=== PATIENT | female | born 1980 | race Caucasian/White ===

== ENCOUNTER 2022-10-02 14:09 | Emergency (ER) | payer MEDICARE, OTHER, SELFPAY ==
[2022-10-02 14:18] VITALS: BP 138/76; PULSE 78; RESP 20; TEMP 36.6; O2SAT 97; BMI 41.3
[2022-10-02] MEDS: OXYCODONE 5 MG TABLET 10 MG PO (14:52)
[2022-10-02] MEDS: predniSONE 20 MG TABLET 40 MG PO (14:53)
[2022-10-02] MEDS: CYCLOBENZAPRINE HCL 10 MG TABLET 5 MG PO (14:54)
[2022-10-02 15:11] VITALS: BP 138/76; PULSE 81; O2SAT 96
--- NOTE | 2022-10-02 15:47 | ED_ITS ---
HPI - General Adult General Chief complaint: Extremity Pain/Injury, Lower Stated complaint: Pain Time Seen by Provider: 10/02/22 14:14 Source: patient Limitations: no limitations History of Present Illness HPI narrative: 42-year-old female presents to the emergency department with increased hip pain. This has been an ongoing soccer for her for the last few weeks and she has been evaluated by her primary care provider, had x-rays and has now seen orthopedics in consultation. Thankfully, she actually has a MRI and imaging guided steroid injection planned in 2 days for suspected labral tear of the hip. There has been no new trauma nor injury since those evaluations. She was started on a Medrol Dosepak a few days ago and was initially having some improvement in her symptoms, as the dose has taper down, her pain increased significantly today and she is unsure why. She had stopped taking steady doses of Tylenol and ibuprofen in the last couple of days as well. This morning, she has been unable to get her pain back under control by using Tylenol 1000 mg approximately 6 hours prior to arrival, tramadol at 8:00 a.m. and ibuprofen 800 mg at about 4 hours prior to arrival. She had previously been prescribed Vicodin which she tells me was helping but she had told the orthopedic doctor that it was not helping. He prescribed her some tramadol which I would prefer she not take due to the multiple psychiatric medications she is taking which all have significant serotonin interaction. She was also prescribed methocarbamol by her primary care provider and has not taken that in the last couple of days. No fever. Pain is in the anterior in her hip/groin area. No urinary, gynecological or GI changes. Pain is worse with movement. Pain does not radiate. Sharp with movement, achy at rest. Only left hip is affected, no knee or opposite side pain. Past medical history is mostly notable for multiple psychiatric medications with a history of depression and anxiety. Her medications are reviewed and now accurate per EMR. Socially, nonsmoker, denies any illicit drug use. ROS is notable for the musculoskeletal symptoms as above only, denies any other neurological, musculoskeletal, generalized, GI, gynecological or urinary changes. Related Data Home Medications Medication Instructions Recorded Confirmed aripiprazole 10 mg tablet 10 mg PO QDAY 09/30/22 09/30/22 bupropion HCl 300 mg 24 hr tablet, 300 mg PO QAM 09/30/22 09/30/22 extended release buspirone 10 mg tablet 10 mg PO TID 09/30/22 09/30/22 cholecalciferol (vitamin D3) 1,250 1,250 mcg PO QWEEK 09/30/22 09/30/22 mcg (50,000 unit) oral wafer citalopram 10 mg tablet 10 mg PO QDAY 09/30/22 09/30/22 ferrous sulfate 325 mg (65 mg 325 mg PO QDAY 09/30/22 09/30/22 iron) tablet gabapentin 300 mg capsule 300 mg PO QDAY 09/30/22 09/30/22 hydrocodone 7.5 mg-acetaminophen 1 tab PO BID PRN 09/30/22 09/30/22 325 mg tablet hydroxyzine HCl 25 mg tablet 25 mg PO QHS 09/30/22 09/30/22 lamotrigine 25 mg tablet 50 mg PO ONCE 09/30/22 09/30/22 mirtazapine 7.5 mg tablet 7.5 mg PO QDAY 09/30/22 09/30/22 naltrexone 50 mg tablet 50 mg PO QDAY 09/30/22 09/30/22 naproxen 500 mg tablet,delayed 500 mg PO BID 09/30/22 09/30/22 release (EC-Naproxen) omeprazole 20 mg tablet,delayed 20 mg PO QDAY 09/30/22 09/30/22 release quetiapine 25 mg tablet 25 mg PO QDAY 09/30/22 09/30/22 sennosides 8.6 mg-docusate sodium 1 tab-cap PO QHS 09/30/22 09/30/22 50 mg tablet (Senexon-S) valacyclovir 500 mg tablet 500 mg PO QDAY 09/30/22 09/30/22 Allergies Allergy/AdvReac Type Severity Reaction Status Date / Time Penicillins Allergy Unknown Rash Verified 09/30/22 10:30 keflex Allergy Unknown Rash Uncoded 09/30/22 10:30 [facility] Medical History Back problem ?M53.9 - Dorsopathy, unspecified (ICD-10) Anxiety ?F41.9 - Anxiety disorder, unspecified (ICD-10) Depression ?F32.A - Depression, unspecified (ICD-10) Asthma ?J45.909 - Unspecified asthma, uncomplicated (ICD-10) Surgical History Hx of hammer toe correction ?Z98.890 - Other specified postprocedural states (ICD-10) ?Z87.39 - Personal history of other diseases of the musculoskeletal system and connective tissue (ICD-10) Family History Father Leukemia Social History Smoking Status: Never smoker Do you use any of these nicotine containing products: None Second hand tobacco smoke exposure: No How often do you have a drink containing alcohol: never How often do you have six or more drinks on one occasion: Never AUDIT-C Alcohol total score: 0 Non-prescribed substance use: denies use service: No Exam Const: Vital Signs, click to edit/add: Vital Signs - 24 hr 10/02/22 14:18 10/02/22 15:11 Temperature 97.8 F Pulse Rate [Pulse Oximeter] 78 81 Respiratory Rate 20 Blood Pressure [Le ft Upper Arm] 138/76 138/76 Pulse Oximetry 97 96 Oxygen Delivery Me thod Room Air Room Air Documenting provider has reviewed patient's vital signs: yes Other: Mild distress but well nourished, well hydrated. HENMT: Common normals: normocephalic and head/scalp atraumatic Head and scalp: normocephalic and atraumatic Mouth: oral and palatal mucosa normal Throat: posterior oropharynx normal Eye: General eye: normal appearance of both eyes Other: Normal gaze and visual tracking Resp: Common normals: normal respiratory effort, no use of accessory muscles and clear to auscultation bilaterally Effort & inspection: able to speak in complete sentences Auscultation: clear to auscultation bilaterally Cardio: Common normals: regular rate, regular rhythm, S1 normal heart sound, S2 normal heart sound and no murmurs Rate: regular rate Rhythm: regular rhythm Heart sounds: S1 normal and S2 normal GI: Common normals: Normal to inspection, nondistended, normoactive bowel sounds present and soft to palpation Palpation: soft Extremity: Other: Right hip with a little limited internal rotation but nontender. Normal flexion and extension. The left hip is exquisitely tender to internal rotation but does flex and extend. She guards quite a bit on exam which makes this difficult. There is no obvious bruising or deformity to the hip. There is no tenderness to the outside hip. The knee has no effusion, the knee moves normally. The foot and ankle are normal in appearance. She has good pedal pulses. Psych: Common normals: speech normal Appearance: grossly normal Speech: normal speech Insight: fair Judgement: fair Skin: Common normals: no rashes or lesions noted General skin exam: no rashes or lesions noted Course Vital Signs Vital signs: Initial Vital Signs Temperature 97.8 F 10/02/22 14:18 Temperature Source Temporal Artery Scan 10/02/22 14:18 Pulse Rate 78 10/02/22 14:18 Pulse Rhythm Regular 10/02/22 14:18 Respiratory Rate 20 10/02/22 14:18 Blood Pressure 138/76 10/02/22 14:18 Blood Pressure Mean 96 10/02/22 14:18 Blood Pressure Position Supine 10/02/22 14:18 Pulse Oximetry 97 10/02/22 14:18 Oxygen Delivery Method Room Air 10/02/22 14:18 Vital Signs Temperature 97.8 F 10/02/22 14:18 Pulse Rate 78 10/02/22 14:18 Respiratory Rate 20 10/02/22 14:18 Blood Pressure 138/76 10/02/22 14:18 Pulse Oximetry 97 10/02/22 14:18 Oxygen Delivery Method Room Air 10/02/22 14:18 Temperature 97.8 F 10/02/22 14:18 Pulse Rate 81 10/02/22 15:11 Respiratory Rate 20 10/02/22 14:18 Blood Pressure 138/76 10/02/22 15:11 Pulse Oximetry 96 10/02/22 15:11 Oxygen Delivery Method Room Air 10/02/22 15:11 Medical Decision Making MDM Narrative Medical decision making narrative: No new injury, extensive previous workup. I do not improve up eating any of the studies will be helpful. I suspect that her pain has worsened since her pred nisone decreased and she has not been as diligent with her baseline [id number] pain medications. Counseled that I would like for her to stop the tramadol. I do not think this is a good choice for her especially with the number of serotonin agents that she already takes. Will give 10 mg of oxycodone, 5 mg of Flexeril and 40 mg of prednisone p.o. and re-evaluate. Update: Re-evaluated 30 minutes after medications given, she is starting to have improvement. It still hurts to move but she can internally rotate and flex slightly. Discussed home plan of care. Plan is the patient will continue taking her methocarbamol. Stressed the importance of Tylenol and NSAIDs as primary pain control. She is given a limited supply of oxycodone to use for severe pain. We will also restart predni sone 40 mg once daily for the next 5 days. She will keep her appointment with the specialist in 2 days will contact her primary care provider if she needs additional oxycodone. Twelve tablets dispensed. She was instructed to hold her naltrexone for the next couple of days to allow the narcotic to work better. Discharge Plan Discharge Clinical Impression: Left hip pain Patient Disposition: Home w/ Parent or Adult Condition: Improved Instructions: Hip Pain (ED) Additional Instructions: I am glad that the oxycodone seems to be helping somewhat. I suspect your pain is worse today because of the decreasing dose of the steroid. I have given you today's dose of prednisone. I have given you a prescription for 5 additional days of this. You can pick this up at the vending machine in the [place]. I want you to keep aggressively using Tylenol 1000 mg 4 times daily as well as either continuing with the prescription naproxen or taking ibuprofen 600 mg 4 times daily. Do not skip the Tylenol. This is the main foundation of your pain control. If the pain is still bothersome, add on the methocarbamol that you have already been prescribed. If the pain is still very bothersome, you may use the oxycodone. I do not like you taking the tramadol because you are on too many medications that already affect serotonin because of your mood medications. Please discontinue the tramadol. Try to use the oxycodone sparingly and remember to use laxatives to help prevent constipation. I am very thankful that you have the upcoming appointment for the injection in 2 days. Please keep this appointment. Follow-up with your primary care provider before you run out of oxycodone if you will need additional refills. Stop taking your naltrexone for the next few days while you are taking the oxycodone. It can make the oxycodone less effective. Activity Level: Activity as Tolerated Discharge Diet: Regular Prescriptions: No Action lamotrigine 25 mg tablet 50 mg PO ONCE citalopram 10 mg tablet 10 mg PO QDAY bupropion HCl 300 mg tablet extended release 24 hr 300 mg PO QAM ferrous sulfate 325 mg (65 mg iron) tablet 325 mg PO QDAY valacyclovir 500 mg tablet 500 mg PO QDAY naltrexone 50 mg tablet 50 mg PO QDAY cholecalciferol (vitamin D3) 1,250 mcg (50,000 unit) wafer 1,250 mcg PO QWEEK omeprazole 20 mg tablet,delayed release (DR/EC) 20 mg PO QDAY aripiprazole 10 mg tablet 10 mg PO QDAY quetiapine 25 mg tablet 25 mg PO QDAY mirtazapine 7.5 mg tablet 7.5 mg PO QDAY sennosides-docusate sodium [Senexon-S] 8.6-50 mg tablet 1 tab-cap PO QHS naproxen [EC-Naproxen] 500 mg tablet,delayed release (DR/EC) 500 mg PO BID hydroxyzine HCl 25 mg tablet 25 mg PO QHS buspirone 10 mg tablet 10 mg PO TID gabapentin 300 mg capsule 300 mg PO QDAY hydrocodone-acetaminophen 7.5-325 mg tablet 1 tab PO BID PRN Follow Up/Referrals: Kika Johnston PA-C [Primary Care Provider] - Stand Alone Forms: [facility] Info Instructions
[2022-10-02] MEDS: KETOROLAC 10 MG TABLET PO (16:15)
== END 2022-10-02 16:23 | disposition home or self-care (01) ==
PROVIDERS: Emergency Provider Family Medicine; PCP Physician Assistant Medical
DX: M25.552 Pain in left hip (principal)
CPT/HCPCS: 99283; 99284; A9270; J7512

== ENCOUNTER 2022-10-11 10:21 | Inpatient (IN) | payer MEDICARE, OTHER, SELFPAY ==
[2022-10-11 11:32] VITALS: BP 117/77; PULSE 86; RESP 14; TEMP 36.6; O2SAT 92
[2022-10-11] MEDS: ACETAMINOPHEN 500 MG TABLET 1000 MG PO ×2 (12:40→19:43)
--- NOTE | 2022-10-11 12:55 | LTC.ADM ---
LTC Admission Note: o Admit from: [facility] Med/Surg unit o Mode of transport: Transported by wheelchair from med/surg unit o Accompanied by: Med/surg staff o Transferred via: FWW o Admitting dx: L hip fracture with surgical repair o Mentation: Resident alert & oriented to correct person, place, time and situation o Vital Signs: B/P 117/77, P 86, R 14, T 97.9, O2 sat 92% o Lung sounds: Clear to all lobes bilaterally o Overall condition: Resident transferring with stand by assist. Med/surg unit reports resident is ambulating. o Pain: Resident reported pain to be 3/10 upon admit though later stated pain was 4-5/10. She has been given PRN Tylenol 975 mg due to having to use stock supply and ice has been provided. Rest encouraged and repositioning performed. o Mood/Behavior: Resident has been pleasant since admit. She requested to eat lunch in dining room. o Wound care: Med/surg nurse reported staff removal of surgical dressing to L hip before admit to [facility]. o Assistance level with ADL?s: Resident eating independently after setup and toileting and transferring with stand by assist. o Mobility: Stand by assist using FWW o Eating: Independent after setup
--- NOTE | 2022-10-11 13:00 | PC.NURSE ---
MEDICARE ADMIT: Resident was admitted from [facility] today, s/p L hip fracture with surgical repair. Qualifying hospital stay was 10/05/22-10/11/22. Today will be the first day of coverage. Insurance has pre-authorized 3 days of coverage. Resident is aware and was notified of coverage due to skilled therapy. Nursing will receive pain medication management and monitoring by nursing. Will receive PT/OT 5x per week until resident meets goals.
[2022-10-11] MEDS: OXYCODONE 5 MG TABLET PO ×3 (13:50→23:57)
--- NOTE | 2022-10-11 14:35 | P.ORPN_ITS ---
Subjective Subjective Time Seen by Provider: 08:00 Date Seen: 10/11/22 Principal diagnosis: Status post left hip replacement for femoral neck fracture Interval history: [facility]. She states she has been ambulating in the hallways into the physical therapy department. She has done stairs with her therapist. This went well. Ortho Exam Narrative Exam Narrative: Alert and oriented x3. Patient is in no acute distress. Converses without labored breathing. Hearing is grossly intact. Ambulates with a walker. Examination of left lower extremity shows the dressing is intact. Soft tissue edema about the left thigh. Bilateral calves are soft and nontender. CMS is intact left lower extremity. Const Vital Signs, click to edit/add: Vital Signs - 24 hr 10/11/22 11:32 Temperature 97.9 F Pulse Rate [Right Radial] 86 Respiratory Rate 14 Blood Pressure [Right Arm] 117/77 Pulse Oximetry 92 Oxygen Delivery Method Room Air Documenting provider has reviewed patient's vital signs: yes Assessment and Plan Assessment and plan (1) Status post total hip replacement, left: Problem details: POD 4, hospital day 6 for operative treatment femoral neck fracture (DOS: 10/06/2022) Status: Acute Assessment and Plan: Plan for discharge is today to [facility] if she meets discharge criteria. DVT prophylaxis includes Xarelto 10 mg daily for total of 5 days, then aspirin 81 mg twice daily for 30 days, Butch stockings x1 month may remove for 1 hr per day, frequent ambulation Remove dressing 2 weeks postsurgery. Observe wound and phone Orthopedics with any questions or concerns Use Ice on operative hip unrestricted. Return to clinic in [address] Brewer Minimize narcotic use. Wean off and discontinue soon as possible. Activities as tolerated. No strenuous activity. PT and OT at [facility]
--- NOTE | 2022-10-11 14:40 | PC.NURSE ---
Order: Received t.o. from Arlin Katz keep (L) hip dressing for 2 weeks, give Aspirin x 30 days, SCD if not moving/ambulating. OT- Fina here , consulted regarding resident mobility and need for SCD. Resident has been ambulating and moving therefore not needing it.
--- NOTE | 2022-10-11 14:57 | PC.NURSE ---
Resident was admitted today from [facility] M/S s/p hip fracture and surgical repair. Was hospitalized 10/05/22-10/11/22. Prior authorization obtained from her Medicare Advantage plan. Resident will receive PT/OT, pain management and surgical site care. Resident signed consents for her psychotropic medication use.
[2022-10-11 15:04] LABS: SARS PCR* Negative SARS-CoV-2 (Negative)
[2022-10-11] MEDS: methocarbamoL 500 MG TABLET PO (21:05)
[2022-10-11] MEDS: GABAPENTIN 300 MG CAPSULE PO (21:06)
[2022-10-11] MEDS: SENNOSIDES/DOCUSATE TABLET 2 TAB PO (21:07)
[2022-10-11] MEDS: BUSPIRONE 10 MG TABLET PO (21:07)
[2022-10-11] MEDS: KETOROLAC 10 MG TABLET PO (21:08)
[2022-10-11] MEDS: MIRTAZAPINE 15 MG TABLET 7.5 MG PO (21:09)
[2022-10-11] MEDS: QUETIAPINE 25 MG TABLET PO (21:10)
--- NOTE | 2022-10-11 21:35 | PC.NURSE ---
Skin assessment: Left Hip sutures covered w/hospital bandage. No swelling, no drainage, no S&S infection noted.
--- NOTE | 2022-10-11 21:43 | PC.NURSE ---
New Admission Skin Assessment: No concerns/bumps/bruises. L. Hip surgical wound covered w/hospital bandage. No drainage, no odor, no edema, no S&S of infection noted
--- NOTE | 2022-10-11 21:45 | PC.NURSE ---
New Admission Covid test result-negative
[2022-10-12] MEDS: ACETAMINOPHEN 500 MG TABLET 1000 MG PO ×3 (06:44→18:59)
[2022-10-12] MEDS: OXYCODONE 5 MG TABLET PO ×3 (06:48→16:02)
[2022-10-12] MEDS: ARIPiprazole 10 MG TABLET PO (08:08)
[2022-10-12] MEDS: ASPIRIN 81 MG TABLET EC PO ×2 (08:08→15:31)
[2022-10-12] MEDS: BUSPIRONE 10 MG TABLET PO ×3 (08:08→19:03)
[2022-10-12] MEDS: KETOROLAC 10 MG TABLET PO ×3 (08:09→19:03)
[2022-10-12] MEDS: FERROUS SULFATE 325 MG TABLET PO (08:09)
[2022-10-12] MEDS: CITALOPRAM HYDROBROMIDE 10 MG TABLET 20 MG PO (08:09)
[2022-10-12] MEDS: methocarbamoL 500 MG TABLET PO ×4 (08:11→19:03)
[2022-10-12] MEDS: lamoTRIgine 25 MG TABLET 50 MG PO (08:11)
[2022-10-12] MEDS: GABAPENTIN 300 MG CAPSULE PO ×4 (08:11→19:03)
[2022-10-12] MEDS: POTASSIUM CHLORIDE 10 MEQ CAPSULE ER 20 MEQ PO (08:12)
[2022-10-12] MEDS: OMEPRAZOLE 20 MG CAPSULE DR PO (08:12)
[2022-10-12] MEDS: VALACYCLOVIR HCL 500 MG TABLET PO (08:12)
[2022-10-12] MEDS: SENNOSIDES/DOCUSATE TABLET 2 TAB PO ×2 (08:12→15:31)
[2022-10-12] MEDS: buPROPion XL 150 MG TABLET 300 MG PO (08:13)
--- NOTE | 2022-10-12 12:10 | PC.SOCIAL ---
Met with resident in room to discuss discharge plans. Resident is doing well with therapy. Informed resident that insurance has only authorized 3 days for rehab at SNF. Informed resident that resident may not meet criteria to have additional days prior auth from insurance due to resident's wonderful progress. Discussed resident's home and if she would have any assistance at home if resident was discharged. Resident states that she has a friend (Sudhakar) that would assist her. Resident states if she was discharged Monday, Sudhakar would assist with transportation back home. Discussed how resident felt about going home and resident stated she is feeling better as she has worked with therapy to ensure she can physically handle taking care of herself. Resident states that therapy has specific areas that they are working on before discharge that are helpful. Asked resident to check in with friend and tentatively have a plan for transportation for Monday discharge. Informed resident if she has any questions that arise for social work that she may reach out to this worker. This worker will follow up with resident on (10/13/22).
--- NOTE | 2022-10-12 13:38 | PC.NURSE ---
Medicare Charting Note: Resident complains pain 2x to L hip and L leg, rated 4.5 -5 /10 pain scale this shift. Administered PRN Tylenol 1000 mg ant Oxycodone at 0640 per resident request and again oxycodone 1103 , applied ice pack to L hip which was effective upon f/u's. CMS intact, able to move L extremity. Resident is independent with with transfers, ambulation, toileting in her room. Dressing intact to L hip fx w/ repair.
[2022-10-12 13:54] VITALS: TEMP 36.9
--- NOTE | 2022-10-12 14:51 | PC.NURSE ---
NOMNC & ABN: NOMNC and ABN provided to resident. Resident was admitted from [facility] w/primary diagnosis of L hip fracture w/repair. Resident on admission had orders for OT/PT. Resident did receive these inpatient services. It was determined by the [facility] that therapies will end 10/14/22. This nurse explained to resident that the residents last day of Medicare coverage will end 10/14/22. Starting on 10/15/22 residents coverage at this facility will be private pay. Resident wad instructed about the appeal process--due to having medicare health plan resident is to contact plan provider directly at [phone]. Denial letter filed, given, and signed by resident. Copy of all paperwork was given to resident. Based on last day of coverage, resident will have used 3 day of medicare coverage. Original forms were filed in the residents chart.
[2022-10-12] MEDS: MIRTAZAPINE 15 MG TABLET 7.5 MG PO (19:04)
[2022-10-12] MEDS: QUETIAPINE 25 MG TABLET PO (19:04)
[2022-10-13] MEDS: OXYCODONE 5 MG TABLET PO ×3 (04:05→15:00)
--- NOTE | 2022-10-13 05:27 | PC.NURSE ---
PAIN Resident requested Oxycodone 10 mg for pain on lower back and left hip ; Thirty minutes after, she did not get much relief , she said , ice pack was offered.
--- NOTE | 2022-10-13 06:56 | PC.NURSE ---
WEEKLY CHARTING WEEK 4 COMMUNICATION, HEARING/VISION, COGNITION Vital signs are within normal range. Temporary and comprehensive care plan : new admission, no changes made yet. Resident got no hearing or vision issues. Resident has history of Depression and personality disorder, no behavior exhibited overnight. She is here for short term cares, will keep comfortable and safe.
[2022-10-13] MEDS: ARIPiprazole 10 MG TABLET PO (07:12)
[2022-10-13] MEDS: CITALOPRAM HYDROBROMIDE 10 MG TABLET 20 MG PO (07:12)
[2022-10-13] MEDS: BUSPIRONE 10 MG TABLET PO ×3 (07:12→21:14)
[2022-10-13] MEDS: ASPIRIN 81 MG TABLET EC PO ×2 (07:12→15:05)
[2022-10-13] MEDS: FERROUS SULFATE 325 MG TABLET PO (07:12)
[2022-10-13] MEDS: OMEPRAZOLE 20 MG CAPSULE DR PO (07:13)
[2022-10-13] MEDS: KETOROLAC 10 MG TABLET PO ×3 (07:13→21:14)
[2022-10-13] MEDS: lamoTRIgine 25 MG TABLET 50 MG PO (07:13)
[2022-10-13] MEDS: methocarbamoL 500 MG TABLET PO ×4 (07:13→21:15)
[2022-10-13] MEDS: GABAPENTIN 300 MG CAPSULE PO ×4 (07:13→21:15)
[2022-10-13] MEDS: POTASSIUM CHLORIDE 10 MEQ CAPSULE ER 20 MEQ PO (07:14)
[2022-10-13] MEDS: VALACYCLOVIR HCL 500 MG TABLET PO (07:14)
[2022-10-13] MEDS: SENNOSIDES/DOCUSATE TABLET 2 TAB PO ×2 (07:14→15:05)
[2022-10-13] MEDS: ACETAMINOPHEN 500 MG TABLET 1000 MG PO ×2 (07:18→18:38)
[2022-10-13] MEDS: buPROPion XL 150 MG TABLET 300 MG PO (08:06)
--- NOTE | 2022-10-13 11:39 | PC.NURSE ---
Discharge Order: Ann TOM here, order done. Okay to DC to home with remaining medication and controlled substance supply. Change Oxycodone to 5 mg Q4H PRN.
--- NOTE | 2022-10-13 12:56 | PC.NURSE ---
Medicare Charting Note:VSS: Resident complains pain twice this shift to L hip and L leg, rated 4.5 -5 /10 pain scale . Administered PRN Tylenol 1000 mg at 0720 and Oxycodone at 1011 , applied ice pack to L hip and encouraged rest and repostiong which was effective upon f/u's. Dressing intact to L hip fx w/repair. CMS intact. Resident is independent with with transfers, ambulation, toileting.
--- NOTE | 2022-10-13 13:23 | PC.NURSE ---
Admit Covid day 3 swab test done and sent to lab. Resident will be notified if result is positive.
[2022-10-13 14:03] LABS: SARS PCR* Negative SARS-CoV-2 (Negative)
[2022-10-13 18:38] VITALS: TEMP 37.1
[2022-10-13 21:13] VITALS: TEMP 37.1
[2022-10-13] MEDS: QUETIAPINE 25 MG TABLET PO (21:16)
[2022-10-13] MEDS: MIRTAZAPINE 15 MG TABLET 7.5 MG PO (21:16)
[2022-10-13 21:44] VITALS: RESP 14; TEMP 37.1
[2022-10-14 06:58] VITALS: BP 127/80; PULSE 85; RESP 18; TEMP 36.6; O2SAT 95
[2022-10-14] MEDS: OXYCODONE 5 MG TABLET PO (06:59)
[2022-10-14] MEDS: ASPIRIN 81 MG TABLET EC PO (08:09)
[2022-10-14] MEDS: BUSPIRONE 10 MG TABLET PO (08:09)
[2022-10-14] MEDS: ARIPiprazole 10 MG TABLET PO (08:09)
[2022-10-14] MEDS: CITALOPRAM HYDROBROMIDE 10 MG TABLET 20 MG PO (08:09)
[2022-10-14] MEDS: GABAPENTIN 300 MG CAPSULE PO (08:10)
[2022-10-14] MEDS: methocarbamoL 500 MG TABLET PO (08:10)
[2022-10-14] MEDS: lamoTRIgine 25 MG TABLET 50 MG PO (08:10)
[2022-10-14] MEDS: FERROUS SULFATE 325 MG TABLET PO (08:10)
[2022-10-14] MEDS: SENNOSIDES/DOCUSATE TABLET 2 TAB PO (08:11)
[2022-10-14] MEDS: POTASSIUM CHLORIDE 10 MEQ CAPSULE ER 20 MEQ PO (08:11)
[2022-10-14] MEDS: OMEPRAZOLE 20 MG CAPSULE DR PO (08:11)
[2022-10-14] MEDS: VALACYCLOVIR HCL 500 MG TABLET PO (08:11)
[2022-10-14] MEDS: buPROPion XL 150 MG TABLET 300 MG PO (08:12)
--- NOTE | 2022-10-14 08:21 | REH.PT ---
Pt provided 2ww from donation closet that was fit for her.
--- NOTE | 2022-10-14 09:52 | PC.NURSE ---
Discharge: All discharge instructions reviewed with resident and given. All appropriate medications sent.Discharge in wheelchair with a friend.
[2022-10-14 10:00] VITALS: BMI 41.3
== END 2022-10-14 10:00 | disposition home or self-care (01) | DRG 566 ==
PROVIDERS: Family Medicine; Admitting Provider Family Medicine; Family Provider Nurse Practitioner Gerontology; PCP Physician Assistant Medical; Visit Provider Nurse Practitioner Gerontology
DX: Z96.642 Presence of left artificial hip joint (principal); M25.552 Pain in left hip
CPT/HCPCS: 87635; 97116; 97162; 97166; 97535

== ENCOUNTER 2022-11-29 14:30 | Outpatient (RCR) | payer MEDICARE, OTHER, SELFPAY ==
--- NOTE | 2022-10-18 11:39 | PT.OPEX ---
[facility] [place] Out[facility] Eval PT [facility] Outpatient Eval Start: 10/18/22 07:56 Freq: Status: Active Protocol: Document 10/18/22 07:57 ENM (Rec: 10/18/22 11:20 ENM [id number]) E-signed By Margret Dinero, DPT Physical Therapy Outpatient Evaluation Insurance Information Recert Due Date 01/10/23 Insurance Name Medicare B,[employer] Insurance Information/Comments medicare advantage Medical Diagnosis s/p total hip replacement, left femoral neck fracture Treating Diagnosis left hip pain, decreased hip ROM, decreased hip strength, impaired gait Referring MD Brewer Subjective Subjective Patient presents to PT for evaluation after left total hip replacement for femoral neck fracture (DOS 10/06/22). It started hurting 2 weeks before the and the month before she would feel a groin and spasm discomfort. Pains steadily got worse and she was using crutches. She was seen in the orthopedic clinic and then subsequently had an intra -articular corticosteroid injection with little relief of pain. Was seen in the ED again then had an MRI which showed a left femoral neck fracture with about 90? of angulation. Stayed in the [facility] for 3 days then went home. She came home last Monday and since then pains have improved , managing them with tylenol and ibuprofen. Is using the 2WW for stability to help offload the hip but will go without it at times within her home. Has been doing exercises 2-3 times a day. She has been walking constantly in her apartment. Sitting or laying on her bottom can still be irritating. Cooking and washing her clothes is limited . She cannot go up the stairs and carry her groceries at this moment. Her main goal is to be able to walk outside like she used to. PMHx: depression, arthritis, Pain Comments at its best: 05/31 at its worse: 11/28 easing: ice pack, ibuprofen, tylenol, hemp gummies aggravating: sitting, laying on her bottom, walking around too much Current Work Status [employer] Dis[employer] Objective Other/Pertinent Objective ROM: hip flexion able to comfortably sit in chair and bend forward to tie shoe supine passive hip flexion 85 degs, guarding initially that improved strength: 5x STS 15.42s with use of arms , fatigued after performing hip flexors L able to lift 1.5 inch R full range 4-/5 knee extensors L able to extend against gravity without resistance with shakiness noted R 4+/5 good quad contraction with QS, strong glute contraction with GS gait/ambulation: Patient ambulating with use of 2WW, mild-mod offloading using UE, decreased stance time on LLE, decreased L hip extension Other: patient having to physically assist bringing LLE in/out of bed Patient very anxious/fearful of mobility initially that improved throughout evaluation Functional Test Performed & Score LEFS: 36/80 Assessment Assessment/Impression Patient is a 42 year old female presenting after left total hip replacement due to femoral neck fracture (DOS ). Pains have steadily been improving since she was discharged from [facility] on Monday . Their primary complaint is of not being able to perform the stairs, carry her groceries or walk longer distances. Upon assessment patient displays decreased left hip ROM and strength consistent with s/p L SHRUTHI. Good quad and glute max contraction. Uses 2WW for support with ambulation with decreased stance time of LLE and hip extension noted. Trialed use of SEC which patient was able to implement well, she plans to buy a cane in the next few days. Jennifer would greatly benefit from skilled PT to address impairments stated above in order to perform all functional/recreational mobility and household activities without significant discomfort or difficulty for return to [facility]. Primary Functional Limitations stairs, walking longer distances, carrying groceries, Plan of Care Rehabilitation Potential Good Physical Therapy Goals In 6-8 visits: 1. Patient will be able to lift leg in/out of bed or car without pain or physical assistance to improve ease of supine<>sit transfer 2. Patient will A/D flight of 10 steps reciprocally with symmetric WB for improved navigation of household 3. Patient will ambulate with improved mechanics and no pain without AD for 10 mins demonstrating improvements in community mobility 4. Patient will improve LEFS from 36/80 to 45/80 (MDC 9) to demonstrate improvements in functional ability Coordination/Communication With Referral Source Treatment Plan/Direct Interventions Gait Training,Ice/Cold/ Vasopneumatic,Joint Mobilization,Manual Therapy, Neuromuscular Re-ed,Self-Care/ Home Management,Therapeutic Activities,Therapeutic Exercises Frequency/Duration 1x a week for 6-8 visits, decreasing frequency as needed for 2-3 additional visits Patient Will Be Discharged From Therapy Completion of LTG(s), Independent w/HEP Evaluation Billing Untimed Code Treatment Minutes 32 Complexity Low Certification Information Physician Comment/Change : Physician NPI Number #
== END 2022-11-29 16:40 | disposition home or self-care (01) ==
PROVIDERS: PCP Physician Assistant Medical; Visit Provider Orthopaedic Surgery
DX: M25.552 Pain in left hip (principal); Z96.642 Presence of left artificial hip joint; R26.9 Unspecified abnormalities of gait and mobility; Z74.09 Other reduced mobility; Z51.89 Encounter for other specified aftercare
CPT/HCPCS: 97110; 97161

== ENCOUNTER 2023-01-02 01:48 | Emergency (ER) | payer MEDICARE, OTHER, SELFPAY ==
[2023-01-02 01:55] VITALS: BP 137/116; PULSE 95; RESP 18; TEMP 36.4; O2SAT 96; BMI 39.1
--- NOTE | 2023-01-02 02:06 | CRLHL7_ITS ---
For Patients: As a result of the Cures Act, medical imaging exams and procedure reports are released immediately into your electronic medical record. You may view this report before your referring provider. If you have questions, please contact your health care provider. HISTORY: Left foot pain. TECHNIQUE: Three views of left foot. COMPARISON: No prior. 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 Associated arthrosis of the 2nd MTP joint space. There is also chronic deformity of the heads of the proximal phalanges of the 2nd and 3rd toes. Bipartite medial sesamoid bone is present. Navicular accessory ossification center. There is no acute fracture. IMPRESSION: No acute fracture. Dictated by Alcon Ramirez MD @ 01/02/2023 3:48:23 AM Dictated by: Alcon Ramirez MD @ 01/02/2023 03:48:29 (Electronically Signed)
[2023-01-02] MEDS: diphenhydrAMINE 25 MG CAPSULE 50 MG PO (02:29)
[2023-01-02] MEDS: predniSONE 20 MG TABLET PO (02:29)
--- NOTE | 2023-01-02 02:29 | ED.GENADULT ---
HPI - General Adult General Date Seen: 01/02/23 Chief complaint: Skin/Abscess/Foreign Body Stated complaint: Hives Time Seen by Provider: 01/02/23 02:04 Source: patient and EMS Mode of arrival: EMS Limitations: no limitations History of Present Illness HPI narrative: Patient is a 42-year-old female presents here for evaluation of a rash, and left foot pain. The rash started up today, she was out in the sun she noted hives on her back, they are very itchy. She called 911, and they talked her into coming here, she says she just did wanted some Benadryl. Denies any shortness of breath, or pharyngeal swelling, she does have a history of anxiety and she said she was worried about this. No fevers chills or sweats, denies otherwise feeling bad. Her left foot is been bothering her, the last couple days, no history of trauma, she describes over her medial plantar aspect. Location: left and lower extremity Associated symptoms: denies other symptoms Treatments prior to arrival: none Related Data Home Medications Medication Instructions Recorded Confirmed aripiprazole 10 mg tablet 10 mg PO DAILY 09/30/22 01/02/23 bupropion HCl 300 mg 24 hr tablet, 300 mg PO QAM 09/30/22 01/02/23 extended release buspirone 10 mg tablet 10 mg PO TID 09/30/22 01/02/23 cholecalciferol (vitamin D3) 1,250 1,250 mcg PO QWEEK 09/30/22 01/02/23 mcg (50,000 unit) oral wafer citalopram 10 mg tablet 20 mg PO DAILY 09/30/22 01/02/23 ferrous sulfate 325 mg (65 mg 325 mg PO DAILY 09/30/22 01/02/23 iron) tablet gabapentin 300 mg capsule 300 mg PO QID 09/30/22 01/02/23 lamotrigine 25 mg tablet 50 mg PO DAILY 09/30/22 01/02/23 mirtazapine 7.5 mg tablet 7.5 mg PO HS 09/30/22 01/02/23 naproxen 500 mg tablet,delayed 500 mg PO BID 09/30/22 01/02/23 release (EC-Naproxen) omeprazole 20 mg tablet,delayed 20 mg PO DAILY 09/30/22 01/02/23 release quetiapine 25 mg tablet 25 mg PO HS 09/30/22 01/02/23 sennosides 8.6 mg-docusate sodium 2 tab-cap PO BID 09/30/22 01/02/23 50 mg tablet (Senexon-S) acetaminophen 500 mg tablet 1,000 mg PO Q6H PRN pain 10/06/22 01/02/23 methocarbamol 500 mg tablet 500 mg PO QID 10/06/22 01/02/23 Previous Rx's Medication Instructions Recorded valacyclovir 500 mg tablet 500 mg PO DAILY Antiviral #1 tab 10/13/22 diphenhydramine HCl 25 mg capsule 50 mg (2 x 25 mg) PO TID PRN #30 01/02/23 (Benadryl) caps prednisone 20 mg tablet 20 mg PO DAILY #5 tabs 01/02/23 Allergies Allergy/AdvReac Type Severity Reaction Status Date / Time Penicillins Allergy Unknown Rash Verified 11/14/22 10:54 cephalexin [From Keflex] Allergy Rash Verified 11/14/22 10:54 shellfish derived Allergy Anaphylaxis Verified 11/14/22 10:54 Cephalosporins AdvReac Mild Verified 11/14/22 10:54 Review of Systems Status of ROS: Reports: 10 or more systems reviewed and unremarkable except as noted in History and below [facility] Medical History History of substance abuse ?F19.11 - Other psychoactive substance abuse, in remission (ICD-10) History of alcohol abuse ?F10.11 - Alcohol abuse, in remission (ICD-10) Femoral neck fracture ?S72.009A - Fracture of unspecified part of neck of unspecified femur, initial encounter for closed fracture (ICD-10) Cubital tunnel syndrome, bilateral ?G56.23 - Lesion of ulnar nerve, bilateral upper limbs (ICD-10) Obesity ?E66.9 - Obesity, unspecified (ICD-10) Substance use disorder ?F19.90 - Other psychoactive substance use, unspecified, uncomplicated (ICD-10) Back problem ?M53.9 - Dorsopathy, unspecified (ICD-10) Anxiety ?F41.9 - Anxiety disorder, unspecified (ICD-10) Depression ?F32.A - Depression, unspecified (ICD-10) Asthma ?J45.909 - Unspecified asthma, uncomplicated (ICD-10) Surgical History Status post total hip replacement, 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) ?Z96.642 - Presence of left artificial hip joint (ICD-10) Status post laparoscopic cholecystectomy (09/13/19) ?Z90.49 - Acquired absence of other specified parts of digestive tract (ICD-10) History of varicose vein ligation ?Z98.890 - Other specified postprocedural states (ICD-10) ?Z86.79 - Personal history of other diseases of the circulatory system (ICD-10) Hx of hammer toe correction (10/22/03) ?Z98.890 - Other specified postprocedural states (ICD-10) ?Z87.39 - Personal history of other diseases of the musculoskeletal system and connective tissue (ICD-10) Family History Father Leukemia Social History Narrative: single, 2 kids, nonsmoker, no EtOH Highest level of school completed/degree received: Associate degree: occupational, technical, vocational program Smoking Status: Former smoker (quit 2014) Do you use any of these nicotine containing products: None Second hand tobacco smoke exposure: No How often do you have a drink containing alcohol: never How often do you have six or more drinks on one occasion: Never AUDIT-C Alcohol total score: 0 Non-prescribed substance use: denies use Caffeine: Yes service: No Exam Narrative: Exam Narrative: On examination she is delightful in no apparent distress speaking to me normally, her pupils equal round reactive to light her oropharynx is normal, her tongue is not swollen, neither of her lips. Her neck is supple, good phonation and good speech pattern is noted, chest is good air entry bilaterally with no wheezing crackles noted heart sounds are normal, abdomen is soft she is little bit tender over her left foot, with a little bit of swelling over the medial side. Skin reveals a rash, consistent with urticaria but also may be consistent with polymorphous light eruption. Const: Vital Signs, click to edit/add: Vital Signs - 24 hr 01/02/23 01:55 Temperature 97.5 F L Pulse Rate [Right Pulse Oximeter] 95 Respiratory Rate 18 Blood Pressure [Le ft Upper Arm] 137/116 H Pulse Oximetry 96 Oxygen Delivery Me thod Room Air Documenting provider has reviewed patient's vital signs: yes Course Course Hospital Course: X-ray does not show any acute fracture, some mild arthritis is noted, this may be the cause of her pain. I discussed with her the use of prednisone, she has tolerated this well in the past, and no she has a history of some psychosis, but she tells me this does not all from the prednisone. I think the Benadryl also would be a good choice. We will give her low-dose prednisone 20 mg along with the Benadryl. Avoidance of the son is suggested. She can take some Tylenol for her foot pain Vital Signs Vital signs: Initial Vital Signs Temperature 97.5 F L 01/02/23 01:55 Temperature Source Temporal Artery Scan 01/02/23 01:55 Pulse Rate 95 01/02/23 01:55 Pulse Rhythm Regular 01/02/23 01:55 Respiratory Rate 18 01/02/23 01:55 Blood Pressure 137/116 H 01/02/23 01:55 Blood Pressure Mean 123 H 01/02/23 01:55 Blood Pressure Position Sitting 01/02/23 01:55 Pulse Oximetry 96 01/02/23 01:55 Oxygen Delivery Method Room Air 01/02/23 01:55 Vital Signs Temperature 97.5 F L 01/02/23 01:55 Pulse Rate 95 01/02/23 01:55 Respiratory Rate 18 01/02/23 01:55 Blood Pressure 137/116 H 01/02/23 01:55 Pulse Oximetry 96 01/02/23 01:55 Oxygen Delivery Method Room Air 01/02/23 01:55 Temperature 97.5 F L 01/02/23 01:55 Pulse Rate 95 01/02/23 01:55 Respiratory Rate 18 01/02/23 01:55 Blood Pressure 137/116 H 01/02/23 01:55 Pulse Oximetry 96 01/02/23 01:55 Oxygen Delivery Method Room Air 01/02/23 01:55 Medical Decision Making MDM Narrative Medical decision making narrative: I discussed with her, we will do x-ray of her foot, we will try little bit of a Benadryl, and also prednisone which she has tolerated well in the past she tells me. Discharge Plan Discharge Clinical Impression: Acute urticaria, Foot pain, left Patient Disposition: Home, Self-Care Condition: Stable Instructions: Acute Rash (ED), Arthralgia (ED) Additional Instructions: Home rest prednisone along with the Benadryl, avoidance of the son, for the pain in your foot, I would suggest some Tylenol, as there is some arthritic changes. Return as needed. Activity Level: Light activity Prescriptions: New prednisone 20 mg tablet 20 mg PO DAILY Qty: 5 0RF diphenhydramine HCl [Benadryl] 25 mg capsule 50 mg PO TID PRNQty: 30 0RF No Action lamotrigine 25 mg tablet 50 mg PO DAILY citalopram 10 mg tablet 20 mg PO DAILY bupropion HCl 300 mg tablet extended release 24 hr 300 mg PO QAM ferrous sulfate 325 mg (65 mg iron) tablet 325 mg PO DAILY cholecalciferol (vitamin D3) 1,250 mcg (50,000 unit) wafer 1,250 mcg PO QWEEK omeprazole 20 mg tablet,delayed release (DR/EC) 20 mg PO DAILY aripiprazole 10 mg tablet 10 mg PO DAILY quetiapine 25 mg tablet 25 mg PO HS mirtazapine 7.5 mg tablet 7.5 mg PO HS sennosides-docusate sodium [Senexon-S] 8.6-50 mg tablet 2 tab-cap PO BID naproxen [EC-Naproxen] 500 mg tablet,delayed release (DR/EC) 500 mg PO BID Hold Instructions: Resume on 11/07/22. Resume once you are no longer taking Tordol or aspirin buspirone 10 mg tablet 10 mg PO TID gabapentin 300 mg capsule 300 mg PO QID acetaminophen 500 mg tablet 1,000 mg PO Q6H PRN (Reason: pain) methocarbamol 500 mg tablet 500 mg PO QID valacyclovir 500 mg tablet 500 mg PO DAILY Qty: 1 0RF Follow Up/Referrals: Kika Johnston PA-C [Primary Care Provider] - Stand Alone Forms: [facility] Info Instructions
== END 2023-01-02 03:13 | disposition home or self-care (01) ==
LOC: ED 02:54
PROVIDERS: Emergency Provider Family Medicine; PCP Physician Assistant Medical
DX: L50.9 Urticaria, unspecified (principal); M79.672 Pain in left foot
CPT/HCPCS: 73630; 99283; 99284; A9270; J7512

== ENCOUNTER 2023-01-03 10:20 | Emergency (ER) | payer MEDICARE, OTHER, SELFPAY ==
--- NOTE | 2023-01-03 10:47 | ED.GENADULT ---
HPI - General Adult General Time Seen by Provider: 10:47 Date Seen: 01/03/23 Chief complaint: Skin/Abscess/Foreign Body Stated complaint: swollen hands, hives on torso Time Seen by Provider: 01/03/23 10:24 History of Present Illness HPI narrative: Pleasant 42-year-old female presenting to the ER today for re-evaluation of an urticarial, intensely pruritic rash. She had been swimming on Monday, 3 days prior to arrival and developed a rash the following day on Monday. Initially the rash was apparently on her feet, her back, and her hands. She was seen in the ER and put on prednisone. She is chronically on hydroxyzine (50 mg t.i.d. for anxiety) but it was not helping with her itching. She has been taking the prednisone as prescribed and also adding some additional as needed Benadryl but still is quite itchy. The rash has changed and is now largely centered on her hands including the web spaces between her fingers, her knuckles, and the dorsum of her hand. No rash on the palms. She also has hives in her armpits. Otherwise the hives have resolved. No ongoing hives on her back, trunk. She is not having any facial swelling, lip swelling, change in her voice, trouble breathing, trouble swallowing. No shortness of breath. No GI symptoms. No fever. Because of the ongoing itching she had a virtual visit yesterday and that doctor prescribed a steroid cream that she can put on her hands. She went to her pharmacy this morning to get it but it turns out that cream needs to be ordered and will not be available until . She came to the ER today seeking some relief from the itching. Related Data Home Medications Medication Instructions Recorded Confirmed aripiprazole 10 mg tablet 10 mg PO DAILY 09/30/22 01/02/23 bupropion HCl 300 mg 24 hr tablet, 300 mg PO QAM 09/30/22 01/02/23 extended release buspirone 10 mg tablet 10 mg PO TID 09/30/22 01/02/23 cholecalciferol (vitamin D3) 1,250 1,250 mcg PO QWEEK 09/30/22 01/02/23 mcg (50,000 unit) oral wafer citalopram 10 mg tablet 20 mg PO DAILY 09/30/22 01/02/23 ferrous sulfate 325 mg (65 mg 325 mg PO DAILY 09/30/22 01/02/23 iron) tablet gabapentin 300 mg capsule 300 mg PO QID 09/30/22 01/02/23 lamotrigine 25 mg tablet 50 mg PO DAILY 09/30/22 01/02/23 mirtazapine 7.5 mg tablet 7.5 mg PO HS 09/30/22 01/02/23 naproxen 500 mg tablet,delayed 500 mg PO BID 09/30/22 01/02/23 release (EC-Naproxen) omeprazole 20 mg tablet,delayed 20 mg PO DAILY 09/30/22 01/02/23 release quetiapine 25 mg tablet 25 mg PO HS 09/30/22 01/02/23 sennosides 8.6 mg-docusate sodium 2 tab-cap PO BID 09/30/22 01/02/23 50 mg tablet (Senexon-S) acetaminophen 500 mg tablet 1,000 mg PO Q6H PRN pain 10/06/22 01/02/23 methocarbamol 500 mg tablet 500 mg PO QID 10/06/22 01/02/23 Previous Rx's Medication Instructions Recorded valacyclovir 500 mg tablet 500 mg PO DAILY Antiviral #1 tab 10/13/22 diphenhydramine HCl 25 mg capsule 50 mg (2 x 25 mg) PO TID PRN #30 01/02/23 (Benadryl) caps prednisone 20 mg tablet 20 mg PO DAILY #5 tabs 01/02/23 hydrocortisone 2.5 % lotion 1 applic topical BID PRN #59 mL 01/03/23 prednisone 20 mg tablet 60 mg (3 x 20 mg) PO DAILY 5 days 01/03/23 #15 tabs Allergies Allergy/AdvReac Type Severity Reaction Status Date / Time Penicillins Allergy Unknown Rash Verified 11/14/22 10:54 cephalexin [From Keflex] Allergy Rash Verified 11/14/22 10:54 shellfish derived Allergy Anaphylaxis Verified 11/14/22 10:54 Cephalosporins AdvReac Mild Verified 11/14/22 10:54 Review of Systems Narrative: Negative [facility] Medical History History of substance abuse ?F19.11 - Other psychoactive substance abuse, in remission (ICD-10) History of alcohol abuse ?F10.11 - Alcohol abuse, in remission (ICD-10) Femoral neck fracture ?S72.009A - Fracture of unspecified part of neck of unspecified femur, initial encounter for closed fracture (ICD-10) Cubital tunnel syndrome, bilateral ?G56.23 - Lesion of ulnar nerve, bilateral upper limbs (ICD-10) Obesity ?E66.9 - Obesity, unspecified (ICD-10) Substance use disorder ?F19.90 - Other psychoactive substance use, unspecified, uncomplicated (ICD-10) Back problem ?M53.9 - Dorsopathy, unspecified (ICD-10) Anxiety ?F41.9 - Anxiety disorder, unspecified (ICD-10) Depression ?F32.A - Depression, unspecified (ICD-10) Asthma ?J45.909 - Unspecified asthma, uncomplicated (ICD-10) Surgical History Status post total hip replacement, 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) ?Z96.642 - Presence of left artificial hip joint (ICD-10) Status post laparoscopic cholecystectomy (09/13/19) ?Z90.49 - Acquired absence of other specified parts of digestive tract (ICD-10) History of varicose vein ligation ?Z98.890 - Other specified postprocedural states (ICD-10) ?Z86.79 - Personal history of other diseases of the circulatory system (ICD-10) Hx of hammer toe correction (10/22/03) ?Z98.890 - Other specified postprocedural states (ICD-10) ?Z87.39 - Personal history of other diseases of the musculoskeletal system and connective tissue (ICD-10) Family History Father Leukemia Social History Narrative: single, 2 kids, nonsmoker, no EtOH Highest level of school completed/degree received: Associate degree: occupational, technical, vocational program Smoking Status: Former smoker Do you use any of these nicotine containing products: None Second hand tobacco smoke exposure: No How often do you have a drink containing alcohol: never How often do you have six or more drinks on one occasion: Never AUDIT-C Alcohol total score: 0 Non-prescribed substance use: denies use Caffeine: Yes service: No Exam Narrative: Exam Narrative: Constitutional: Appears well-developed and well-nourished. Alert. Conversant. Non toxic. HENT: Head: Atraumatic. Nose: Nose normal. Mouth/Throat: Oral mucosa is clear and moist. no trismus. Pharynx normal. Tonsils symmetric. No tonsillar enlargement, erythema, or exudate. Eyes: Conjunctivae normal. EOM normal. Pupils equal, round, and reactive to light. No scleral icterus. Neck: Normal range of motion. Neck supple. No tracheal deviation present. Cardiovascular: Normal rate, regular rhythm. No gallop. No friction rub. No murmur heard. Symmetric radial artery pulses Pulmonary/Chest: Effort normal. No stridor. No respiratory distress. No wheezes. No rales. No rhonchi . RUE: Normal range of motion. No tenderness. No deformity LUE: Normal range of motion. No tenderness. No deformity RLE: Normal range of motion. No edema. No tenderness. No deformity LLE: Normal range of motion. No edema. No tenderness. No deformity Lymph: No cervical adenopathy. Neurological: Alert and oriented to person, place, and time. Normal strength. CN II-VII intact. No sensory deficit. GCS eye subscore is 4. GCS verbal subscore is 5. GCS motor subscore is 6. Normal coordination Skin: She has a slightly raised, erythematous irregular rash affecting the skin of both axilla which could be consistent with urticaria/hives. She also has an erythematous, raised, intensely pruritic rash affecting both her hands. There is also some cracking of the skin likely from dry skin and hand washing. There are no vesicles or pustules. No concern for cellulitis. No evidence for abscess. No desquamation. Skin is otherwise warm and dry. No rash noted. No pallor. Normal capillary refill. Psychiatric: Normal mood. Normal affect. She is very polite. She does endorse that she is on multiple psychiatric medications but she is doing well from a mental standpoint. She has no other long-term medical conditions. Const: Vital Signs, click to edit/add: Vital Signs - 24 hr 01/03/23 11:34 01/03/23 11:49 Temperature 98.5 F Pulse Rate [Pulse Oximeter] 76 Respiratory Rate 16 Blood Pressure [Ri ght Upper Arm] 137/90 H Pulse Oximetry 96 Oxygen Delivery Me thod Room Air Course Vital Signs Vital signs: Initial Vital Signs Pulse Rate 76 01/03/23 11:34 Respiratory Rate 16 01/03/23 11:34 Respiratory Effort Normal 01/03/23 11:34 Respiratory Depth Normal 01/03/23 11:34 Respiratory Pattern Normal 01/03/23 11:34 Blood Pressure 137/90 H 01/03/23 11:34 Blood Pressure Mean 105 01/03/23 11:34 Blood Pressure Position Supine 01/03/23 11:34 Pulse Oximetry 96 01/03/23 11:34 Oxygen Delivery Method Room Air 01/03/23 11:34 Vital Signs Pulse Rate 76 01/03/23 11:34 Respiratory Rate 16 01/03/23 11:34 Blood Pressure 137/90 H 01/03/23 11:34 Pulse Oximetry 96 01/03/23 11:34 Oxygen Delivery Method Room Air 01/03/23 11:34 Temperature 98.5 F 01/03/23 11:49 Pulse Rate 76 01/03/23 11:34 Respiratory Rate 16 01/03/23 11:34 Blood Pressure 137/90 H 01/03/23 11:34 Pulse Oximetry 96 01/03/23 11:34 Oxygen Delivery Method Room Air 01/03/23 11:34 Medical Decision Making MDM Narrative Medical decision making narrative: This patient presents for evaluation of a pruritic rash including hives in both of her axilla and a pruritic rash affecting her hands.. Signs and symptoms are consistent with allergic reaction. No airway involvement, bronchospasm, GI symptoms, hypotension, or other sign of anaphylaxis. Differential would also include contact dermatitis since the rash is largely on her hands. However no definite new exposure to soaps, creams, plants while swimming, or other clear trigger. She is not having any symptoms of anaphylaxis or airway involvement. Will have her increase her dose of prednisone up to 60 mg daily, also had topical steroid that she can put her hands. She will continue on her oral antihistamines. Potential for worsening reaction was discussed. Development of anaphylactic symptoms were discussed with patient and they were instructed to inject epi-pen and call 911 should these symptoms occur. Given thelack of serious systemic symptoms, lack of respiratory difficulty and no oral or pharyngeal swelling, would not admit at this time for anaphylaxis. There is no signs of anaphylactic shock. Medical Records Medical records reviewed: Yes I reviewed the patient's medical records Discharge Plan Discharge Clinical Impression: Hives Patient Disposition: Home, Self-Care Condition: Stable Instructions: Urticaria (ED) Additional Instructions: Please come back to the ER right away if you have worsening hives, trouble breathing, swelling of your mouth or throat, or if you have any concerns. Prescriptions: New prednisone 20 mg tablet 60 mg PO DAILY 5 Days Qty: 15 0RF hydrocortisone 2.5 % lotion 1 applic topical BID PRNQty: 59 0RF No Action lamotrigine 25 mg tablet 50 mg PO DAILY citalopram 10 mg tablet 20 mg PO DAILY bupropion HCl 300 mg tablet extended release 24 hr 300 mg PO QAM ferrous sulfate 325 mg (65 mg iron) tablet 325 mg PO DAILY cholecalciferol (vitamin D3) 1,250 mcg (50,000 unit) wafer 1,250 mcg PO QWEEK omeprazole 20 mg tablet,delayed release (DR/EC) 20 mg PO DAILY aripiprazole 10 mg tablet 10 mg PO DAILY quetiapine 25 mg tablet 25 mg PO HS mirtazapine 7.5 mg tablet 7.5 mg PO HS sennosides-docusate sodium [Senexon-S] 8.6-50 mg tablet 2 tab-cap PO BID naproxen [EC-Naproxen] 500 mg tablet,delayed release (DR/EC) 500 mg PO BID Hold Instructions: Resume on 11/07/22. Resume once you are no longer taking Tordol or aspirin buspirone 10 mg tablet 10 mg PO TID gabapentin 300 mg capsule 300 mg PO QID acetaminophen 500 mg tablet 1,000 mg PO Q6H PRN (Reason: pain) methocarbamol 500 mg tablet 500 mg PO QID prednisone 20 mg tablet 20 mg PO DAILY Qty: 5 0RF diphenhydramine HCl [Benadryl] 25 mg capsule 50 mg PO TID PRNQty: 30 0RF valacyclovir 500 mg tablet 500 mg PO DAILY Qty: 1 0RF Follow Up/Referrals: Kika Johnston PA-C [Primary Care Provider] - Stand Al[facility] Info Inst[facility]
[2023-01-03 11:34] VITALS: BP 137/90; PULSE 76; RESP 16; O2SAT 96
[2023-01-03 11:49] VITALS: TEMP 36.9
== END 2023-01-03 12:54 | disposition home or self-care (01) ==
PROVIDERS: Emergency Provider Emergency Medicine; PCP Physician Assistant Medical
DX: L50.9 Urticaria, unspecified (principal)
CPT/HCPCS: 99283

== ENCOUNTER 2023-01-04 07:51 | Outpatient (CLI) | payer MEDICARE, OTHER, SELFPAY | END 2023-01-04 07:52 | disposition home or self-care (01) | LOC: AMB 01-05 12:22 | PROVIDERS: PCP Physician Assistant Medical; Visit Provider Family Medicine | DX: T78.49XA Other allergy, initial encounter (principal) | CPT/HCPCS: A0425; A0427 ==

== ENCOUNTER 2023-01-04 08:12 | Emergency (ER) | payer MEDICARE, OTHER, SELFPAY ==
[2023-01-04] VITALS (22 sets, daily range): BP systolic 118–150; BP diastolic 71–106; PULSE 65–83; RESP 22–24; TEMP 36.3; O2SAT 93–97; BMI 39.9
--- NOTE | 2023-01-04 08:21 | ED_ITS ---
HPI - General Adult General Time Seen by Provider: 08:40 Date Seen: 01/04/23 Chief complaint: Allergic Reaction Stated complaint: allergic reaction Time Seen by Provider: 01/04/23 08:25 Source: patient Mode of arrival: ambulatory Limitations: no limitations History of Present Illness HPI narrative: Patient is a 42-year-old female with a history of bipolar 2, chronic gastritis, asthma presenting to the emergency department for urticaria and facial swelling. Patient states roughly 3 3 days ago she started noticing urticaria and itching all over her body. She came in emergency department a few days ago and was started on Benadryl and steroids. She states she has not noticed any improvement with those medications so she came back yesterday and had her steroids increased from 40 mg to 60 mg. 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 She says she has had some shortness of breath and when EMS arrived they gave her a dose of IM epinephrine. She states that to that the lump in her throat levels causing some of the shortness of breath has resolved she is feeling better. She is also feeling like the swelling to her face has gone down. She is not sure what was causing the allergic reaction. First she thought it was an allergy to being in a [place] on Monday and then thought might have been a spray she was using but she has not used now for several days. She denies any other changes to her routines or products she is using. She had 1 episode of emesis when she arrived but states that is the only time she had any nausea. Denies chest pain, abdominal pain, lightheadedness, dizziness, fevers, chills, diarrhea, constipation, numbness, weakness. Related Data Home Medications Medication Instructions Recorded Confirmed aripiprazole 10 mg tablet 10 mg PO DAILY 09/30/22 01/04/23 bupropion HCl 300 mg 24 hr tablet, 300 mg PO QAM 09/30/22 01/04/23 extended release buspirone 10 mg tablet 10 mg PO TID 09/30/22 01/04/23 cholecalciferol (vitamin D3) 1,250 1,250 mcg PO QWEEK 09/30/22 01/04/23 mcg (50,000 unit) oral wafer citalopram 10 mg tablet 20 mg PO DAILY 09/30/22 01/04/23 ferrous sulfate 325 mg (65 mg 325 mg PO DAILY 09/30/22 01/04/23 iron) tablet gabapentin 300 mg capsule 300 mg PO QID 09/30/22 01/04/23 lamotrigine 25 mg tablet 50 mg PO DAILY 09/30/22 01/04/23 mirtazapine 7.5 mg tablet 7.5 mg PO HS 09/30/22 01/04/23 naproxen 500 mg tablet,delayed 500 mg PO BID 09/30/22 01/02/23 release (EC-Naproxen) omeprazole 20 mg tablet,delayed 20 mg PO DAILY 09/30/22 01/04/23 release quetiapine 25 mg tablet 25 mg PO HS 09/30/22 01/04/23 sennosides 8.6 mg-docusate sodium 2 tab-cap PO BID 09/30/22 01/02/23 50 mg tablet (Senexon-S) acetaminophen 500 mg tablet 1,000 mg PO Q6H PRN pain 10/06/22 01/02/23 methocarbamol 500 mg tablet 500 mg PO QID 10/06/22 01/04/23 Previous Rx's Medication Instructions Recorded valacyclovir 500 mg tablet 500 mg PO DAILY Antiviral #1 tab 10/13/22 diphenhydramine HCl 25 mg capsule 50 mg (2 x 25 mg) PO TID PRN #30 01/02/23 (Benadryl) caps prednisone 20 mg tablet 20 mg PO DAILY #5 tabs 01/02/23 hydrocortisone 2.5 % lotion 1 applic topical BID PRN #59 mL 01/03/23 prednisone 20 mg tablet 60 mg (3 x 20 mg) PO DAILY 5 days 01/03/23 #15 tabs Allergies Allergy/AdvReac Type Severity Reaction Status Date / Time Penicillins Allergy Unknown Rash Verified 01/04/23 08:20 cephalexin [From Keflex] Allergy Rash Verified 01/04/23 08:20 shellfish derived Allergy Anaphylaxis Verified 01/04/23 08:20 Cephalosporins AdvReac Mild Verified 01/04/23 08:20 Review of Systems Status of ROS: Reports: 10 or more systems reviewed and unremarkable except as noted in History and below [facility] Medical History History of substance abuse ?F19.11 - Other psychoactive substance abuse, in remission (ICD-10) History of alcohol abuse ?F10.11 - Alcohol abuse, in remission (ICD-10) Femoral neck fracture ?S72.009A - Fracture of unspecified part of neck of unspecified femur, initial encounter for closed fracture (ICD-10) Cubital tunnel syndrome, bilateral ?G56.23 - Lesion of ulnar nerve, bilateral upper limbs (ICD-10) Obesity ?E66.9 - Obesity, unspecified (ICD-10) Substance use disorder ?F19.90 - Other psychoactive substance use, unspecified, uncomplicated (ICD- 10) Back problem ?M53.9 - Dorsopathy, unspecified (ICD-10) Anxiety ?F41.9 - Anxiety disorder, unspecified (ICD-10) Depression ?F32.A - Depression, unspecified (ICD-10) Asthma ?J45.909 - Unspecified asthma, uncomplicated (ICD-10) Surgical History Status post total hip replacement, 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) ?Z96.642 - Presence of left artificial hip joint (ICD-10) Status post laparoscopic cholecystectomy (09/13/19) ?Z90.49 - Acquired absence of other specified parts of digestive tract (ICD- 10) History of varicose vein ligation ?Z98.890 - Other specified postprocedural states (ICD-10) ?Z86.79 - Personal history of other diseases of the circulatory system (ICD- 10) Hx of hammer toe correction (10/22/03) ?Z98.890 - Other specified postprocedural states (ICD-10) ?Z87.39 - Personal history of other diseases of the musculoskeletal system and connective tissue (ICD-10) Family History Father Leukemia Social History Narrative: single, 2 kids, nonsmoker, no EtOH Highest level of school completed/degree received: Associate degree: occupational, technical, vocational program Smoking Status: Former smoker Do you use any of these nicotine containing products: None Second hand tobacco smoke exposure: No How often do you have a drink containing alcohol: never How often do you have six or more drinks on one occasion: Never AUDIT-C Alcohol total score: 0 Non-prescribed substance use: denies use Caffeine: Yes service: No Exam Narrative: Exam Narrative: Const: Well-nourished, Well-developed, in mild distress Eyes: PERRL, no conjunctival injection, and symmetrical lids ENMT: Swelling noted to patient's bilateral eyes and lips with a flush appea ring face. No swelling noted to the tongue, uvula or rest of her oropharynx. Voice sounds normal Neck: Symmetric, trachea midline, No thyromegaly. CVS: RRR, No murmurs or gallops. Peripheral pulses 2+ and equal in all extremities RESP: Unlabored respiratory effort. Clear to auscultation bilaterally. GI: Nontender/Nondistended, No rebound or guarding. MSK:Extremities w/o deformity, Normal Active ROM Skin: Urticaria noted in bilateral axillary region, on back, bilateral shoulders some erythema also noted on her legs. Neuro: Normal Muscle tone, No focal neurological deficits. Psych: Awake, Alert, & Oriented x3. Appropriate mood and affect. Const: Vital Signs, click to edit/add: Vital Signs - 24 hr 01/04/23 08:17 01/04/23 08:31 01/04/23 08:32 Temperature 97.3 F L Pulse Rate 83 77 Pulse Rate [Pulse Oximeter] 72 Respiratory Rate 22 24 Blood Pressure 128/96 H Blood Pressure [Ri ght Upper Arm] 118/71 Pulse Oximetry 97 96 96 Oxygen Delivery Me thod Room Air 01/04/23 08:40 01/04/23 08:42 01/04/23 09:00 Temperature Pulse Rate 73 77 75 Pulse Rate [Pulse Oximeter] Respiratory Rate Blood Pressure 135/98 H Blood Pressure [Ri ght Upper Arm] Pulse Oximetry 94 94 96 Oxygen Delivery Me thod 01/04/23 09:01 01/04/23 09:20 01/04/23 09:21 Temperature Pulse Rate 75 75 80 Pulse Rate [Pulse Oximeter] Respiratory Rate Blood Pressure 135/95 H 150/106 H Blood Pressure [Ri ght Upper Arm] Pulse Oximetry [address]od 01/04/23 09:22 01/04/23 09:27 01/04/23 09:32 Temperature Pulse Rate 73 74 Pulse Rate [Pulse Oximeter] Respiratory Rate 24 Blood Pressure 127/89 Blood Pressure [Ri ght Upper Arm] Pulse Oximetry 93 95 93 Oxygen Delivery Me thod Room Air 01/04/23 09:40 01/04/23 10:00 01/04/23 10:02 Temperature Pulse Rate 74 76 76 Pulse Rate [Pulse Oximeter] Respiratory Rate 24 Blood Pressure 131/84 Blood Pressure [Ri ght Upper Arm] Pulse Oximetry 95 94 95 Oxygen Delivery Me thod 01/04/23 10:03 01/04/23 10:20 01/04/23 10:31 Temperature Pulse Rate 76 69 67 Pulse Rate [Pulse Oximeter] Respiratory Rate Blood Pressure 122/89 Blood Pressure [Ri ght Upper Arm] Pulse Oximetry 95 94 95 Oxygen Delivery Me thod 01/04/23 10:40 01/04/23 10:57 01/04/23 11:00 Temperature Pulse Rate 78 65 68 Pulse Rate [Pulse Oximeter] Respiratory Rate Blood Pressure 132/81 Blood Pressure [Ri ght Upper Arm] Pulse Oximetry 93 95 94 Oxygen Delivery Me thod 01/04/23 11:01 Temperature Pulse Rate 69 Pulse Rate [Pulse Oximeter] Respiratory Rate Blood Pressure 136/78 Blood Pressure [Ri ght Upper Arm] Pulse Oximetry 96 Oxygen Delivery Me thod Course Vital Signs Vital signs: Initial Vital Signs Temperature 97.3 F L 01/04/23 08:17 Temperature Source Temporal Artery Scan 01/04/23 08:17 Pulse Rate 72 01/04/23 08:17 Respiratory Rate 22 01/04/23 08:17 Blood Pressure 118/71 01/04/23 08:17 Blood Pressure Mean 86 01/04/23 08:17 Blood Pressure Position Semi-Fowlers 01/04/23 08:17 Pulse Oximetry 97 01/04/23 08:17 Oxygen Delivery Method Room Air 01/04/23 08:17 Vital Signs Temperature 97.3 F L 01/04/23 08:17 Pulse Rate 72 01/04/23 08:17 Respiratory Rate 22 01/04/23 08:17 Blood Pressure 118/71 01/04/23 08:17 Pulse Oximetry 97 01/04/23 08:17 Oxygen Delivery Method Room Air 01/04/23 08:17 Temperature 97.3 F L 01/04/23 08:17 Pulse Rate 69 01/04/23 11:01 Respiratory Rate 24 01/04/23 10:02 Blood Pressure 136/78 01/04/23 11:01 Pulse Oximetry 96 01/04/23 11:01 Oxygen Delivery Method Room Air 01/04/23 09:27 Medical Decision Making MDM Narrative Medical decision making narrative: Patient is 4 year female presented for facial swelling. She has been having allergic reaction for the past 3 days as of this for what the cause is. She was having a lump in her throat and swelling to her lips and eyes in EMS gave her epi IM EN route. After this she says her symptoms were improving. While we monitored her in the ED we did notice swelling in her face was going down. By his cbc and BMP. BMP shows no concerning abnormalities. CBC shows a white count of 16.5 but she is on steroids so this is likely from lab. No signs of infection. She was starting to have some mild swelling again and another dose of epi IM was given. She is also given Solu-Medrol, Benadryl, famotidine for her symptoms likely allergic reaction. She was given Zofran for nausea and Reglan for nausea with Zofran did not help. Continue in the large amount of facial swelling and the fact that she noted she felt like there was a lump in throat with some mild difficulty breathing before she received the epinephrine I am concerned she could airway issues or down the road. States she did not need the 2nd dose of epinephrine. I spoke to the accepting hospitalist Dr. Ellington in [place] agreement that concerning and I have an in-house hospitalist, in-house ENT, in house anesthesia and the only provider is in the emergency department overnight we do not believe she is safe to stay in in our hospital. If she does start developing airway compromised the ED provider may not be able to get to her and time. Patient will be transferred. I spoke to Dr. Holt at [facility] emergency department accepted her for an ED to ED transfer. Patient is agreeable to this plan. She states she was feeling dehydrated and some fluids were given. At this time I do not believe is medication induced as been no changes in medication and she is not on lisinopril. Since the symptoms improved with the epinephrine this is more likely to be anaphylaxis related rather than hereditary angioedema or Chris inhibitor induced angioedema. She has showed no signs of airway compromise at this time I do not believe is necessary to intubate. Lab Data Labs: Lab Results 01/04/23 Range/Units 08:24 WBC 16.51 H (4.50-11.00) K/uL RBC 5.56 H (4.00-5.20) m/uL Hgb 15.1 (12.0-16.0) gm/dL Hct 45.9 (33.0-51.0) % MCV 83 (80-100) fL MCH 27 (26-34) pg MCHC 33 (32-36) gm/dL RDW Coeff of Afshin 13.3 (11.5-15.5) % Plt Count 454 H (140-440) K/uL Neut % (Auto) 71.5 (42.0-72.0) % Lymph % (Auto) 21.3 (20-44) % Crenshaw % (Auto) 5.2 (0.0-11.0) % Eos % (Auto) 0.8 (0.0-7.0) % Baso % (Auto) 0.2 (0.0-3.0) % Neut # (Auto) 11.80 H (1.7-7.0) K/uL Lymph # (Auto) 3.50 H (0.90-2.90) K/uL Crenshaw # (Auto) 0.90 (0.00-0.90) K/UL Eos # (Auto) 0.10 (0.00-0.50) K/uL Baso # (Auto) 0.00 (0.00-0.30) K/uL Abs Immat Gran (auto) 0.20 (0.00-0.30) K/uL Imm/Tot Granulo (auto) 1.0 % Sodium 139 (135-149) mmol/L Potassium 3.7 (3.6-5.1) mmol/L Chloride 104 (96-114) mmol/L Carbon Dioxide 22 (20-32) mmol/L BUN 14 (5-24) mg/dL Creatinine 1.1 (0.5-1.5) mg/dL Estimated Creat Clear 74.47 Estimated GFR 64 ml/min Glucose 93 (60-115) mg/dL Calcium 9.9 (8.4-10.6) mg/dL ECG Data Attestation: I personally reviewed and interpreted this ECG as follows: (Normal size rhythm with 70 beats per minute, normal intervals, normal axis, no ST or T- wave abnormalities. Appears similar previous EKG on file) Prior ECG tracings: available for review (10/05/2022) Critical Care Time Critical Care Time Critical Care Time: Yes Attestation: The patient required my highest level preparedness to intervene emergently and I personally spent this critical care time directly and personally managing the patient. This critical care time included: Obtaining a history; Examining the patient; Pulse oximetry; Ordering and reviewing of studies; Arranging urgent treatment with development of a management plan; Evaluation of patients response to treatment; Frequent reassessment discussions with other providers. This critical care time was performed to assess and manage the high probability of imminent life-threatening deterioration that could result in multiorgan demetrice lure. It was exclusive of separate billable procedures and treating other patients and teaching time. Total Critical Care Time in Minutes: 45 Discharge Plan Discharge Clinical Impression: Anaphylaxis Qualifiers: Encounter type: initial encounter Qualified Code(s): T78.2XXA - Anaphylactic shock, unspecified, initial encounter Angioedema Qualifiers: Encounter type: initial encounter Qualified Code(s): T78.3XXA - Angioneurotic edema, initial encounter Patient Disposition: Xfer Other Discharge Location: [facility] Condition: Stable Prescriptions: No Action lamotrigine 25 mg tablet 50 mg PO DAILY citalopram 10 mg tablet 20 mg PO DAILY bupropion HCl 300 mg tablet extended release 24 hr 300 mg PO QAM ferrous sulfate 325 mg (65 mg iron) tablet 325 mg PO DAILY cholecalciferol (vitamin D3) 1,250 mcg (50,000 unit) wafer 1,250 mcg PO QWEEK omeprazole 20 mg tablet,delayed release (DR/EC) 20 mg PO DAILY aripiprazole 10 mg tablet 10 mg PO DAILY quetiapine 25 mg tablet 25 mg PO HS mirtazapine 7.5 mg tablet 7.5 mg PO HS sennosides-docusate sodium [Senexon-S] 8.6-50 mg tablet 2 tab-cap PO BID naproxen [EC-Naproxen] 500 mg tablet,delayed release (DR/EC) 500 mg PO BID Hold Instructions: Resume on 11/07/22. Resume once you are no longer taking T ordol or aspirin buspirone 10 mg tablet 10 mg PO TID gabapentin 300 mg capsule 300 mg PO QID acetaminophen 500 mg tablet 1,000 mg PO Q6H PRN (Reason: pain) methocarbamol 500 mg tablet 500 mg PO QID prednisone 20 mg tablet 20 mg PO DAILY Qty: 5 0RF diphenhydramine HCl [Benadryl] 25 mg capsule 50 mg PO TID PRNQty: 30 0RF prednisone 20 mg tablet 60 mg PO DAILY 5 Days Qty: 15 0RF hydrocortisone 2.5 % lotion 1 applic topical BID PRNQty: 59 0RF valacyclovir 500 mg tablet 500 mg PO DAILY Qty: 1 0RF Stand Alone Forms: [facility] Info Instructions
[2023-01-04] MEDS: ONDANSETRON 2 MG/ML inj 4 MG IVP (08:25)
[2023-01-04] MEDS: 0.9 % SODIUM CHLORIDE 1000 ml 1,000 ML 150 ML IV (08:30)
[2023-01-04] MEDS: METHYLPREDNISOLONE SOD SUCC 62.5 MG/ML (125) 125 MG IVP (08:45)
[2023-01-04 09:03] LABS: Basophils Percent Auto 0.2 % (0.0-3.0); Eosinophils Percent Auto 0.8 % (0.0-7.0); Hematocrit 45.9 % (33.0-51.0); Hemoglobin* 15.1 gm/dL (12.0-16.0); Lymphocytes Percent Auto 21.3 % (20-44); Mean Corpuscular HGB Conc 33 gm/dL (32-36); Mean Corpuscular Hemoglobin 27 pg (26-34); Mean Corpuscular Volume 83 fL (80-100); Monocytes Percent Auto 5.2 % (0.0-11.0); Neutrophils Percent Auto 71.5 % (42.0-72.0); Platelet Count* 454 K/uL (140-440); RDW Coefficient of Variation % 13.3 % (11.5-15.5); Red Blood Count 5.56 m/uL (4.00-5.20); White Blood Count* 16.51 K/uL (4.50-11.00)
[2023-01-04 09:08] LABS: Slide Review Reflex No
[2023-01-04] MEDS: METOCLOPRAMIDE HCL 5 MG/ML INJ 10 MG IVP (09:22)
--- NOTE | 2023-01-04 09:29 | ED.NURSE ---
did retch and was asking for more nausea meds. reglan 10 mg ivp slowly given. is using an ice pack fro
--- NOTE | 2023-01-04 09:30 | ED.NURSE ---
did retch loudly and asking for more anti nausea meds. chin is no longer weeping from the swelling. does feel better. aware to let nurse know if worsening symptoms. continued to be closely monitored.
[2023-01-04 09:34] LABS: Chloride* 104 mmol/L (96-114); Potassium* 3.7 mmol/L (3.6-5.1); Sodium* 139 mmol/L (135-149)
[2023-01-04 09:36] LABS: Creatinine* 1.1 mg/dL (0.5-1.5); Est. Creatinine Clearance* 74.47; Estimated Glomerular Filt Rate 64 ml/min
[2023-01-04 09:37] LABS: Blood Urea Nitrogen* 14 mg/dL (5-24); Calcium* 9.9 mg/dL (8.4-10.6); Carbon Dioxide* 22 mmol/L (20-32); Glucose* 93 mg/dL (60-115)
[2023-01-04] MEDS: EPINEPHrine 0.3 MG PEN IM (09:59)
[2023-01-04] MEDS: diphenhydrAMINE 50 MG/ML inj IVP (10:08)
[2023-01-04] MEDS: FAMOTIDINE 10 MG/ML inj 40 MG IVP (10:11)
--- NOTE | 2023-01-04 10:16 | ED.NURSE ---
di have increase in theswelling around mouth-lips, had more uticaria on her hands and head. dr yates was in. did get epi, benadryl and famotidine given now. is ok with transfer. has blisters on her lips, voice was more muffled.
--- NOTE | 2023-01-04 10:45 | ED.NURSE ---
dr yates aware that she has had ~700 ml of ns and now the bag is at tko.
--- NOTE | 2023-01-04 11:28 | ED.NURSE ---
[place] [facility] at [id number]. report was called to Azucena hou at [facility]. upon discharge did have improvement of swelling and voice less muffled.
== END 2023-01-04 11:15 | disposition other institution (70) ==
PROVIDERS: Emergency Provider Student in an Organized Health Care Education/Training Program; PCP Physician Assistant Medical
DX: T78.2XXA Anaphylactic shock, unspecified, initial encounter (principal); T78.3XXA Angioneurotic edema, initial encounter
CPT/HCPCS: 36415; 80048; 85025; 93005; 96374; 96375; 99284; 99291; J0171; J1200; J2405; J2765; J2930; J7030; S0028

== ENCOUNTER 2023-01-04 11:02 | Outpatient (CLI) | payer MEDICARE, OTHER, SELFPAY | END 2023-01-04 11:03 | disposition home or self-care (01) | LOC: AMB 01-05 19:25 | PROVIDERS: PCP Physician Assistant Medical; Visit Provider Student in an Organized Health Care Education/Training Program | DX: T78.2XXS Anaphylactic shock, unspecified, sequela (principal); T78.3XXS Angioneurotic edema, sequela | CPT/HCPCS: A0425; A0426; A0427 ==

== ENCOUNTER 2023-01-15 08:39 | Outpatient (CLI) | payer MEDICARE, OTHER, SELFPAY | END 2023-01-15 08:40 | disposition home or self-care (01) | LOC: AMB 01-16 02:29 | PROVIDERS: PCP Physician Assistant Medical; Visit Provider Family Medicine | DX: L50.8 Other urticaria (principal); T78.40XA Allergy, unspecified, initial encounter | CPT/HCPCS: A0425; A0427 ==

== ENCOUNTER 2023-01-15 09:05 | Emergency (ER) | payer MEDICARE, OTHER, SELFPAY ==
[2023-01-15 09:14] VITALS: BP 126/84; PULSE 91; RESP 20; TEMP 36.3; O2SAT 95
[2023-01-15 09:30] VITALS: BP 118/73; PULSE 89; RESP 16; O2SAT 94
--- NOTE | 2023-01-15 09:45 | ED_ITS ---
HPI - General Adult General Time Seen by Provider: 09:45 Date Seen: 01/15/23 Chief complaint: Allergic Reaction Stated complaint: allergic reaction Time Seen by Provider: 01/15/23 09:21 Source: patient Mode of arrival: EMS History of Present Illness HPI narrative: Patient is a 42-year-old female who has had trouble with chronic urticaria. She was seen here several times, just came off prednisone yesterday and had recurrence of urticaria today over her face chest and back, no shortness of breath, no fevers, no chills no mouth swelling. She is interested in getting back on prednisone and that has helped her. She was admitted to [facility] overnight for observation as well. She sees a manager mechanical maintenance or primary care doctor tomorrow. She has no other complaints, no chest pain, no breathing problem no tongue swelling as mention. No new allergens or exposures Related Data Home Medications Medication Instructions Recorded Confirmed aripiprazole 10 mg tablet 10 mg PO DAILY 09/30/22 01/04/23 bupropion HCl 300 mg 24 hr tablet, 300 mg PO QAM 09/30/22 01/04/23 extended release buspirone 10 mg tablet 10 mg PO TID 09/30/22 01/04/23 cholecalciferol (vitamin D3) 1,250 1,250 mcg PO QWEEK 09/30/22 01/04/23 mcg (50,000 unit) oral wafer citalopram 10 mg tablet 20 mg PO DAILY 09/30/22 01/04/23 ferrous sulfate 325 mg (65 mg 325 mg PO DAILY 09/30/22 01/04/23 iron) tablet gabapentin 300 mg capsule 300 mg PO QID 09/30/22 01/04/23 lamotrigine 25 mg tablet 50 mg PO DAILY 09/30/22 01/04/23 mirtazapine 7.5 mg tablet 7.5 mg PO HS 09/30/22 01/04/23 naproxen 500 mg tablet,delayed 500 mg PO BID 09/30/22 01/02/23 release (EC-Naproxen) omeprazole 20 mg tablet,delayed 20 mg PO DAILY 09/30/22 01/04/23 release quetiapine 25 mg tablet 25 mg PO HS 09/30/22 01/04/23 sennosides 8.6 mg-docusate sodium 2 tab-cap PO BID 09/30/22 01/02/23 50 mg tablet (Senexon-S) acetaminophen 500 mg tablet 1,000 mg PO Q6H PRN pain 10/06/22 01/02/23 methocarbamol 500 mg tablet 500 mg PO QID 10/06/22 01/04/23 epinephrine 0.3 mg/0.3 mL IM 01/15/23 injection, auto-injector Previous Rx's Medication Instructions Recorded valacyclovir 500 mg tablet 500 mg PO DAILY Antiviral #1 tab 10/13/22 diphenhydramine HCl 25 mg capsule 50 mg (2 x 25 mg) PO TID PRN #30 01/02/23 (Benadryl) caps prednisone 20 mg tablet 20 mg PO DAILY #5 tabs 01/02/23 hydrocortisone 2.5 % lotion 1 applic topical BID PRN #59 mL 01/03/23 prednisone 20 mg tablet 60 mg (3 x 20 mg) PO DAILY 5 days 01/03/23 #15 tabs epinephrine 0.3 mg/0.3 mL 0.3 ml IM Q5-15M PRN #2 ea 01/15/23 injection, auto-injector prednisone 50 mg tablet 50 mg PO DAILY #7 tabs 01/15/23 Allergies Allergy/AdvReac Type Severity Reaction Status Date / Time Penicillins Allergy Unknown Rash Verified 01/04/23 08:20 cephalexin [From Keflex] Allergy Rash Verified 01/04/23 08:20 shellfish derived Allergy Anaphylaxis Verified 01/04/23 08:20 Cephalosporins AdvReac Mild Verified 01/04/23 08:20 Review of Systems Status of ROS: Reports: 6 or more systems reviewed and unremarkable except as noted in History and below [facility] Medical History History of substance abuse ?F19.11 - Other psychoactive substance abuse, in remission (ICD-10) History of alcohol abuse ?F10.11 - Alcohol abuse, in remission (ICD-10) Femoral neck fracture ?S72.009A - Fracture of unspecified part of neck of unspecified femur, initial encounter for closed fracture (ICD-10) Cubital tunnel syndrome, bilateral ?G56.23 - Lesion of ulnar nerve, bilateral upper limbs (ICD-10) Obesity ?E66.9 - Obesity, unspecified (ICD-10) Substance use disorder ?F19.90 - Other psychoactive substance use, unspecified, uncomplicated (ICD- 10) Back problem ?M53.9 - Dorsopathy, unspecified (ICD-10) Anxiety ?F41.9 - Anxiety disorder, unspecified (ICD-10) Depression ?F32.A - Depression, unspecified (ICD-10) Asthma ?J45.909 - Unspecified asthma, uncomplicated (ICD-10) Surgical History Status post total hip replacement, 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) ?Z96.642 - Presence of left artificial hip joint (ICD-10) Status post laparoscopic cholecystectomy (09/13/19) ?Z90.49 - Acquired absence of other specified parts of digestive tract (ICD- 10) History of varicose vein ligation ?Z98.890 - Other specified postprocedural states (ICD-10) ?Z86.79 - Personal history of other diseases of the circulatory system (ICD- 10) Hx of hammer toe correction (10/22/03) ?Z98.890 - Other specified postprocedural states (ICD-10) ?Z87.39 - Personal history of other diseases of the musculoskeletal system and connective tissue (ICD-10) Family History Father Leukemia Social History Narrative: single, 2 kids, nonsmoker, no EtOH Highest level of school completed/degree received: Associate degree: occupational, technical, vocational program Smoking Status: Former smoker Do you use any of these nicotine containing products: None Second hand tobacco smoke exposure: No How often do you have a drink containing alcohol: never How often do you have six or more drinks on one occasion: Never AUDIT-C Alcohol total score: 0 Non-prescribed substance use: denies use Caffeine: Yes service: No Exam Narrative: Exam Narrative: Objective: Patient's vital signs look within normal limits She is alert orient x3, talks in even and nonlabored sentences noncyanotic HEENT is unremarkable other than some urticaria noted over her forehead, mouth is clear tongue is not swollen Neck is supple Chest is clear no rales or wheezing Heart rhythm regular heart murmur Extremities are no edema neurologic nonfocal chest and back shows some urticarial changes. Const: Vital Signs, click to edit/add: Vital Signs - 24 hr 01/15/23 09:14 01/15/23 09:30 Temperature 97.3 F L Pulse Rate [Right Pulse Oximeter] 91 89 Respiratory Rate 20 16 Blood Pressure [Ri ght Upper Arm] 126/84 118/73 Pulse Oximetry 95 94 Oxygen Delivery Me thod Room Air Room Air Course Vital Signs Vital signs: Initial Vital Signs Respiratory Effort Normal, Spontaneous, Non-Labored 01/15/23 09:13 Respiratory Depth Normal 01/15/23 09:13 Respiratory Pattern Normal 01/15/23 09:13 Vital Signs Temperature 97.3 F L 01/15/23 09:14 Pulse Rate 91 01/15/23 09:14 Respiratory Rate 20 01/15/23 09:14 Blood Pressure 126/84 01/15/23 09:14 Pulse Oximetry 95 01/15/23 09:14 Oxygen Delivery Method Room Air 01/15/23 09:14 Temperature 97.3 F L 01/15/23 09:14 Pulse Rate 89 01/15/23 09:30 Respiratory Rate 16 01/15/23 09:30 Blood Pressure 118/73 01/15/23 09:30 Pulse Oximetry 94 01/15/23 09:30 Oxygen Delivery Method Room Air 01/15/23 09:30 Medical Decision Making MDM Narrative Medical decision making narrative: Patient is a 42-year-old female with chronic urticaria. She appears to have no severe reaction at this time. She does have an EpiPen at home and she would like this refilled. I think could be appropriate will also give her prednisone 50 mg daily for the next week, she will see her regular doctor and work on a taper. Recommend Benadryl 25 t.i.d. as well. I do not think she needs hospitalization or prolonged observation given this has been a recurrent issue. She can return promptly neck problems or concerns. Discharge Plan Discharge Clinical Impression: Urticaria Patient Disposition: Home w/ Parent or Adult Condition: Stable Additional Instructions: Prednisone 50 mg daily for a week, would recommend Benadryl 25 mg three times a day for the next 4-5 days as well. Follow-up with your primary care and manager mechanical maintenance tomorrow. You will need a taper of your prednisone. Return as needed. Activity Level: Light activity Discharge Diet: Regular Prescriptions: New prednisone 50 mg tablet 50 mg PO DAILY Qty: 7 0RF epinephrine 0.3 mg/0.3 mL auto-injector 0.3 ml IM Q5-15M PRNQty: 2 0RF Rx Instructions: do not exceed 3 doses per episode No Action lamotrigine 25 mg tablet 50 mg PO DAILY citalopram 10 mg tablet 20 mg PO DAILY bupropion HCl 300 mg tablet extended release 24 hr 300 mg PO QAM ferrous sulfate 325 mg (65 mg iron) tablet 325 mg PO DAILY cholecalciferol (vitamin D3) 1,250 mcg (50,000 unit) wafer 1,250 mcg PO QWEEK omeprazole 20 mg tablet,delayed release (DR/EC) 20 mg PO DAILY aripiprazole 10 mg tablet 10 mg PO DAILY quetiapine 25 mg tablet 25 mg PO HS mirtazapine 7.5 mg tablet 7.5 mg PO HS sennosides-docusate sodium [Senexon-S] 8.6-50 mg tablet 2 tab-cap PO BID naproxen [EC-Naproxen] 500 mg tablet,delayed release (DR/EC) 500 mg PO BID Hold Instructions: Resume on 11/07/22. Resume once you are no longer taking Tordol or aspirin buspirone 10 mg tablet 10 mg PO TID gabapentin 300 mg capsule 300 mg PO QID acetaminophen 500 mg tablet 1,000 mg PO Q6H PRN (Reason: pain) methocarbamol 500 mg tablet 500 mg PO QID prednisone 20 mg tablet 20 mg PO DAILY Qty: 5 0RF diphenhydramine HCl [Benadryl] 25 mg capsule 50 mg PO TID PRNQty: 30 0RF prednisone 20 mg tablet 60 mg PO DAILY 5 Days Qty: 15 0RF hydrocortisone 2.5 % lotion 1 applic topical BID PRNQty: 59 0RF epinephrine 0.3 mg/0.3 mL auto-injector IM valacyclovir 500 mg tablet 500 mg PO DAILY Qty: 1 0RF Follow Up/Referrals: Kika Johnston, PAEpi [Primary Care Provider] - Stand Alone Forms: [facility] Info Instructions
[2023-01-15] MEDS: predniSONE 10 MG TABLET 50 MG PO (09:54)
[2023-01-15] MEDS: diphenhydrAMINE 25 MG CAPSULE 50 MG PO (09:54)
== END 2023-01-15 10:07 | disposition home or self-care (01) ==
PROVIDERS: Emergency Provider Family Medicine; PCP Physician Assistant Medical
DX: L50.9 Urticaria, unspecified (principal)
CPT/HCPCS: 99283; 99284; A9270; J7512

== ENCOUNTER 2023-04-21 09:08 | Outpatient (CLI) | payer MEDICARE, OTHER, SELFPAY | END 2023-04-21 09:09 | disposition home or self-care (01) | LOC: AMB 04-24 10:17 | PROVIDERS: PCP Physician Assistant Medical; Visit Provider Family Medicine | DX: R53.1 Weakness (principal); R41.82 Altered mental status, unspecified | CPT/HCPCS: A0425; A0427 ==

== ENCOUNTER 2023-04-21 09:38 | Emergency (ER) | payer MEDICARE, OTHER, SELFPAY ==
[2023-04-21 09:46] VITALS: BP 148/116; PULSE 81; RESP 18; TEMP 36.4; O2SAT 95; BMI 25.1
--- NOTE | 2023-04-21 10:03 | ED.GENADULT ---
HPI - General Adult General Chief complaint: Dizziness/Vertigo Stated complaint: ill Time Seen by Provider: 04/21/23 09:45 History of Present Illness HPI narrative: Patient notes her cat spilled the litter box sometime overnight. All morning she has felt off. Describes dizziness, slow. Pain to left ankle, patient denies injury. Patient just got the kitten Monday. No recent illness, fever. CO monitor 0 per EMS. BS 114 . 43-year-old woman presenting to the emergency department with concern of feeling ?off?. Just feels unwell describing some dizziness but with further characterization I think this is more lightheadedness that she is describing. Feels slowed she says. She does describe a rash over her face when I ask about it; she does not initially mention this. She thinks that she fell asleep with her face on some cat litter. It is unclear to me how this may have happened. Apparently the cat has been playing. She is not complaining of pain in her face. No difficulty breathing. No fever. Review of records shows history of transaminitis and persistently elevated white count/neutrophilia. In December of this year had a persistent rash/urticarial eruption for some weeks which did involve face and was ultimately transferred out of this facility with concerns of involving anaphylaxis/angioedema. Related Data Home Medications Medication Instructions Recorded Confirmed aripiprazole 10 mg tablet 10 mg PO DAILY 09/30/22 02/24/23 bupropion HCl 300 mg 24 hr tablet, 300 mg PO QAM 09/30/22 02/24/23 extended release buspirone 10 mg tablet 10 mg PO TID 09/30/22 02/24/23 cholecalciferol (vitamin D3) 1,250 1,250 mcg PO QWEEK 09/30/22 02/24/23 mcg (50,000 unit) oral wafer citalopram 10 mg tablet 20 mg PO DAILY 09/30/22 02/24/23 ferrous sulfate 325 mg (65 mg 325 mg PO DAILY 09/30/22 02/24/23 iron) tablet gabapentin 300 mg capsule 300 mg PO QID 09/30/22 02/24/23 lamotrigine 25 mg tablet 50 mg PO DAILY 09/30/22 02/24/23 mirtazapine 7.5 mg tablet 7.5 mg PO HS 09/30/22 02/24/23 naproxen 500 mg tablet,delayed 500 mg PO BID 09/30/22 02/24/23 release (EC-Naproxen) omeprazole 20 mg tablet,delayed 20 mg PO DAILY 09/30/22 02/24/23 release sennosides 8.6 mg-docusate sodium 2 tab-cap PO BID 09/30/22 02/24/23 50 mg tablet (Senexon-S) acetaminophen 500 mg tablet 1,000 mg PO Q6H PRN pain 10/06/22 02/24/23 methocarbamol 500 mg tablet 500 mg PO QID 10/06/22 02/24/23 epinephrine 0.3 mg/0.3 mL IM 01/15/23 02/24/23 injection, auto-injector Previous Rx's Medication Instructions Recorded valacyclovir 500 mg tablet 500 mg PO DAILY Antiviral #1 tab 10/13/22 diphenhydramine HCl 25 mg capsule 50 mg (2 x 25 mg) PO TID PRN #30 01/02/23 (Benadryl) caps hydrocortisone 2.5 % lotion 1 applic topical BID PRN #59 mL 01/03/23 epinephrine 0.3 mg/0.3 mL 0.3 ml IM Q5-15M PRN #2 ea 01/15/23 injection, auto-injector ondansetron 4 mg disintegrating 4 mg PO QID PRN nausea and 04/21/23 tablet vomiting #10 tabs prednisone 20 mg tablet 20 mg PO BID 3 days #6 tabs 04/21/23 Allergies Allergy/AdvReac Type Severity Reaction Status Date / Time shellfish derived Allergy Severe Anaphylaxis Verified 04/21/23 09:46 cephalexin [From Keflex] Allergy Intermediate Rash Verified 04/21/23 12:38 Cephalosporins Allergy Intermediate Rash Verified 04/21/23 12:38 Penicillins Allergy Intermediate Rash Verified 04/21/23 12:38 Review of Systems Status of ROS: Reports: 6 or more systems reviewed and unremarkable except as noted in History and below [facility] Medical History History of substance abuse ?F19.11 - Other psychoactive substance abuse, in remission (ICD-10) History of alcohol abuse ?F10.11 - Alcohol abuse, in remission (ICD-10) Femoral neck fracture ?S72.009A - Fracture of unspecified part of neck of unspecified femur, initial encounter for closed fracture (ICD-10) Cubital tunnel syndrome, bilateral ?G56.23 - Lesion of ulnar nerve, bilateral upper limbs (ICD-10) Obesity ?E66.9 - Obesity, unspecified (ICD-10) Substance use disorder ?F19.90 - Other psychoactive substance use, unspecified, uncomplicated (ICD-10) Back problem ?M53.9 - Dorsopathy, unspecified (ICD-10) Anxiety ?F41.9 - Anxiety disorder, unspecified (ICD-10) Depression ?F32.A - Depression, unspecified (ICD-10) Asthma ?J45.909 - Unspecified asthma, uncomplicated (ICD-10) Surgical History Status post total hip replacement, 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) ?Z96.642 - Presence of left artificial hip joint (ICD-10) Status post laparoscopic cholecystectomy (09/13/19) ?Z90.49 - Acquired absence of other specified parts of digestive tract (ICD-10) History of varicose vein ligation ?Z98.890 - Other specified postprocedural states (ICD-10) ?Z86.79 - Personal history of other diseases of the circulatory system (ICD-10) Hx of hammer toe correction (10/22/03) ?Z98.890 - Other specified postprocedural states (ICD-10) ?Z87.39 - Personal history of other diseases of the musculoskeletal system and connective tissue (ICD-10) Family History Father Leukemia Social History Narrative: single, 2 kids, nonsmoker, no EtOH Highest level of school completed/degree received: Associate degree: occupational, technical, vocational program Smoking Status: Former smoker Do you use any of these nicotine containing products: None Second hand tobacco smoke exposure: No How often do you have a drink containing alcohol: never How often do you have six or more drinks on one occasion: Never AUDIT-C Alcohol total score: 0 Non-prescribed substance use: denies use Caffeine: Yes service: No Exam Narrative: Exam Narrative: Pleasant. Somewhat blunted affect. Seems slightly confused to questioning. Articulating clearly though. Cranial nerves 2-12 intact. Pupils are 3 mm equal briskly reactive and accommodating. She is breathing easily. Lungs are clear there is no stridor. Oropharynx is without swelling or erythema. Neck is supple without lymphadenopathy. TMs clear. Face generally is flushed and tissue more soft along the forehead in particular. Not tender to palpation. There is small superficial erosion about a half a cm maximal diameter under the left nostril laterally. No drainage here. Changes are not consistent with a cellulitis over her skin. Heart in regular rate and rhythm. Abdomen is soft and nontender. Extremities are well perfused without edema. No other rashes are appreciated. Const: Vital Signs, click to edit/add: Vital Signs - 24 hr 04/21/23 09:46 04/21/23 10:30 04/21/23 12:30 Temperature 97.6 F Pulse Rate [Pulse Oximeter] 81 80 82 Respiratory Rate 18 18 18 Blood Pressure [Ri t Upper Arm] 148/116 H 116/84 153/108 H Pulse Oximetry 95 94 97 Oxygen Delivery Me thod Room Air Room Air Room Air Documenting provider has reviewed patient's vital signs: yes Course Vital Signs Vital signs: Initial Vital Signs Temperature 97.6 F 04/21/23 09:46 Temperature Source Temporal Artery Scan 04/21/23 09:46 Pulse Rate 81 04/21/23 09:46 Respiratory Rate 18 04/21/23 09:46 Blood Pressure 148/116 H 04/21/23 09:46 Blood Pressure Mean 126 H 04/21/23 09:46 Blood Pressure Position Semi-Fowlers 04/21/23 09:46 Pulse Oximetry 95 04/21/23 09:46 Oxygen Delivery Method Room Air 04/21/23 09:46 Vital Signs Temperature 97.6 F 04/21/23 09:46 Pulse Rate 81 04/21/23 09:46 Respiratory Rate 18 04/21/23 09:46 Blood Pressure 148/116 H 04/21/23 09:46 Pulse Oximetry 95 04/21/23 09:46 Oxygen Delivery Method Room Air 04/21/23 09:46 Temperature 97.6 F 04/21/23 09:46 Pulse Rate 82 04/21/23 12:30 Respiratory Rate 18 04/21/23 12:30 Blood Pressure 153/108 H 04/21/23 12:30 Pulse Oximetry 97 04/21/23 12:30 Oxygen Delivery Method Room Air 04/21/23 12:30 Medications Administered Medications: Discontinued Medications Generic Name Dose Route Start Last Admin Trade Name Dwight PRN Reason Stop Dose Admin Sodium Chloride 1,000 mls @ 1,000 mls/hr 04/21/23 10:32 04/21/23 12:06 0.9 % Sodium Chloride 1000 Ml IV 04/21/23 11:31 Infused .Q1H ONE Infusion Sodium Chloride 500 mls @ 1,000 mls/hr 04/21/23 14:18 04/21/23 15:06 0.9 % Sodium Chloride 500 Ml IV 04/21/23 14:47 Infused .Q30M ONE Infusion Ondansetron HCl 4 mg 04/21/23 14:23 04/21/23 14:33 Ondansetron 2 Mg/Ml Inj IVP 04/21/23 14:24 4 mg ONCE ONE Administration Medical Decision Making [facility] Narrative Medical decision making narrative: Seen back in December and February of this year with persistent urticarial eruptions. She says that is not this. Maintains that this is a new facial rash over the last day. Further that she just feels off. Feels like she is having trouble interpreting texts. Reveals that had been vomiting as well. There may be an evolving reaction. Puzzling how she is describing some of her confusion. No focal findings otherwise to suggest cerebrovascular accident. No major pain complaints a no chest pain no abdominal pain. No headache. She is having some nausea though. I think will give IV hydration. Monitor for progression of symptoms. Check labs for electrolyte abnormalities or evidence of infection. Tox screen. White count remains mildly elevated though less than prior. ESR and CRP mildly elevated. With this evolution of rash that she had been struggling with and history of apparent anaphylaxis and difficulty getting clear information, did also dose with Solu-Medrol. Had already demonstrated I think some improvement with fluids and Zofran. Face seem less flushed. Seemed quicker in communication and with more apparent energy. Still not entirely clear I did opt to CT the head. This was unremarkable by my read and confirmed by Radiology. Did also reach out to primary care provider who confirmed mildly unusual affect. Overall improved during time in the emergency department she agreed. Perhaps unusual reaction from gastrointestinal illness/bug. See patient discharge plan Lab Data Lab results reviewed: Yes I reviewed the patient's lab results Labs: Lab Results 04/21/23 04/21/23 04/21/23 Range/Units 11:00 11:43 12:55 WBC 14.95 H (4.50-11.00) K/uL RBC 4.98 (4.00-5.20) m/uL Hgb 13.6 (12.0-16.0) gm/dL Hct 41.7 (33.0-51.0) % MCV 84 (80-100) fL MCH 27 (26-34) pg MCHC 33 (32-36) gm/dL RDW Coeff of Afshin 13.7 (11.5-15.5) % Plt Count 466 H (140-440) K/uL Neut % (Auto) 77.8 H (42.0-72.0) % Lymph % (Auto) 14.3 L (20-44) % [place] % (Auto) 5.6 (0.0-11.0) % Eos % (Auto) 1.5 (0.0-7.0) % Baso % (Auto) 0.3 (0.0-3.0) % Neut # (Auto) 11.60 H (1.7-7.0) K/uL Lymph # (Auto) 2.10 (0.90-2.90) K/uL [place] # (Auto) 0.80 (0.00-0.90) K/UL Eos # (Auto) 0.20 (0.00-0.50) K/uL Baso # (Auto) 0.00 (0.00-0.30) K/uL Abs Immat Gran (auto) 0.10 (0.00-0.30) K/uL Imm/Tot Granulo (auto) 0.5 % ESR 36 H (2-20) mm/hr Sodium 138 (135-149) mmol/L Potassium 3.5 L (3.6-5.1) mmol/L Chloride 103 (96-114) mmol/L Carbon Dioxide 26 (20-32) mmol/L Anion Gap 9 (7-15) mEq/L BUN 16 (5-24) mg/dL Creatinine 0.7 (0.5-1.5) mg/dL Estimated Creat Clear 115.82 Estimated GFR 110 ml/min Glucose 103 (60-115) mg/dL Calcium 9.7 (8.4-10.6) mg/dL Magnesium 2.2 (1.5-2.6) mg/dL Total Bilirubin 0.8 (0.1-1.5) mg/dL Direct Bilirubin 0.2 (0.0-0.5) mg/dL AST 45 H (12-35) U/L ALT 53 H (4-35) U/L Alkaline Phosphatase 134 (40-150) U/L Ammonia 13.0 L (13.1-30.0) umol/L C-Reactive Protein 2.1 H (0.5-1.0) mg/dL NT-Pro-B Natriuret Pep 33 pg/mL Total Protein 8.0 (6.0-8.3) g/dL Albumin 4.6 (3.3-5.0) g/dL TSH 1.590 (0.270-4.20) uIU/mL Urine Color [place] A (Yellow) Urine Appearance Slightly Cloudy A (Clear) Urine pH 5.5 (5.0-8.5) Ur Specific [place] >= 1.030 (1.000-1.030) Urine Protein Negative (Negative) Urine Glucose (UA) Negative (Negative) Urine Ketones 1+ A (Negative) Urine Blood Negative (Negative) Urine Nitrite Negative (Negative) Urine Bilirubin 2+ A (Negative) Urine Urobilinogen 1.0 (0.2-1.0) Ur Leukocyte Esterase Negative (Negative) Urine RBC 0-2 (0-2) Urine WBC 0-2 (0-5) Ur Squamous Epith Cells Few (None-Few) Amorphous Sediment Few A (None) Urine Bacteria Few A (None) Urine Mucus Few A (None) Ethyl Alcohol < 0.01 L (0.01-0.03) % Lab Acknowledgement Test Added ECG Data Attestation: I personally reviewed and interpreted this ECG as follows: (Normal sinus rhythm rate of 67 no acute ischemic changes) Discharge Plan Discharge Clinical Impression: Facial rash, Vomiting, Dehydration Patient Disposition: Home w/ Parent or Adult Condition: Improved Additional Instructions: Focus on hydration. Slow advance of diet over the next 24-36 hours. Might try diluted juices, soup broths then rice, toast, crackers. Zofran should help you with the nausea. Return for persistent and increasing redness, pain, fever, heat of your skin Prescriptions: New prednisone 20 mg tablet 20 mg PO BID 3 Days Qty: 6 0RF ondansetron 4 mg tablet,disintegrating 4 mg PO QID PRN (Reason: nausea and vomiting) Qty: 10 0RF No Action lamotrigine 25 mg tablet 50 mg PO DAILY citalopram 10 mg tablet 20 mg PO DAILY bupropion HCl 300 mg tablet extended release 24 hr 300 mg PO QAM ferrous sulfate 325 mg (65 mg iron) tablet 325 mg PO DAILY cholecalciferol (vitamin D3) 1,250 mcg (50,000 unit) wafer 1,250 mcg PO QWEEK omeprazole 20 mg tablet,delayed release (DR/EC) 20 mg PO DAILY aripiprazole 10 mg tablet 10 mg PO DAILY mirtazapine 7.5 mg tablet 7.5 mg PO HS sennosides-docusate sodium [Senexon-S] 8.6-50 mg tablet 2 tab-cap PO BID naproxen [EC-Naproxen] 500 mg tablet,delayed release (DR/EC) 500 mg PO BID Hold Instructions: Resume on 11/07/22. Resume once you are no longer taking Tordol or aspirin buspirone 10 mg tablet 10 mg PO TID gabapentin 300 mg capsule 300 mg PO QID acetaminophen 500 mg tablet 1,000 mg PO Q6H PRN (Reason: pain) methocarbamol 500 mg tablet 500 mg PO QID diphenhydramine HCl [Benadryl] 25 mg capsule 50 mg PO TID PRNQty: 30 0RF hydrocortisone 2.5 % lotion 1 applic topical BID PRNQty: 59 0RF epinephrine 0.3 mg/0.3 mL auto-injector IM epinephrine 0.3 mg/0.3 mL auto-injector 0.3 ml IM Q5-15M PRNQty: 2 0RF Rx Instructions: do not exceed 3 doses per episode valacyclovir 500 mg tablet 500 mg PO DAILY Qty: 1 0RF Follow Up/Referrals: Kika Johnston PA-C [Primary Care Provider] - Stand Alone [facility] Info Instructions
[2023-04-21 10:30] VITALS: BP 116/84; PULSE 80; RESP 18; O2SAT 94
[2023-04-21] MEDS: 0.9 % SODIUM CHLORIDE 1000 ml 1,000 ML IV (11:05)
[2023-04-21 11:11] LABS: Basophils Percent Auto 0.3 % (0.0-3.0); Eosinophils Percent Auto 1.5 % (0.0-7.0); Hematocrit 41.7 % (33.0-51.0); Hemoglobin* 13.6 gm/dL (12.0-16.0); Immature Granulocytes Pct Auto 0.5 %; Lymphocytes Percent Auto 14.3 % (20-44); Mean Corpuscular HGB Conc 33 gm/dL (32-36); Mean Corpuscular Hemoglobin 27 pg (26-34); Mean Corpuscular Volume 84 fL (80-100); Monocytes Percent Auto 5.6 % (0.0-11.0); Neutrophils Percent Auto 77.8 % (42.0-72.0); Platelet Count* 466 K/uL (140-440); RDW Coefficient of Variation % 13.7 % (11.5-15.5); Red Blood Count 4.98 m/uL (4.00-5.20); White Blood Count* 14.95 K/uL (4.50-11.00)
[2023-04-21 11:19] LABS: Slide Review Reflex No
[2023-04-21 11:33] LABS: Chloride* 103 mmol/L (96-114)
[2023-04-21 11:34] LABS: Potassium* 3.5 mmol/L (3.6-5.1); Sodium* 138 mmol/L (135-149)
[2023-04-21 11:36] LABS: Creatinine* 0.7 mg/dL (0.5-1.5); Est. Creatinine Clearance* 115.82; Estimated Glomerular Filt Rate 110 ml/min
[2023-04-21 11:37] LABS: Anion Gap 9 mEq/L (7-15); Blood Urea Nitrogen* 16 mg/dL (5-24); Calcium* 9.7 mg/dL (8.4-10.6); Carbon Dioxide* 26 mmol/L (20-32); Glucose* 103 mg/dL (60-115); Magnesium* 2.2 mg/dL (1.5-2.6)
[2023-04-21 11:38] LABS: Albumin* 4.6 g/dL (3.3-5.0)
[2023-04-21 11:42] LABS: Alanine Aminotransferase* 53 U/L (4-35); Alkaline Phosphatase* 134 U/L (40-150); Aspartate Amino Transferase* 45 U/L (12-35); Bilirubin Direct* 0.2 mg/dL (0.0-0.5); Bilirubin Total* 0.8 mg/dL (0.1-1.5)
[2023-04-21 11:44] LABS: C Reactive Protein* 2.1 mg/dL (0.5-1.0)
[2023-04-21 11:47] LABS: NT Pro B Type NatriureticPept* 33 pg/mL
[2023-04-21 11:51] LABS: Ethanol* < 0.01 % (0.01-0.03)
[2023-04-21 12:00] LABS: Erythrocyte SedimentationRate* 36 mm/hr (2-20)
[2023-04-21 12:30] VITALS: BP 153/108; PULSE 82; RESP 18; O2SAT 97
--- NOTE | 2023-04-21 12:33 | CRLHL7_ITS ---
For Patients: As a result of the Century Cures Act, medical imaging exams and procedure reports are released immediately into your electronic medical record. You may view this report before your referring provider. If you have questions, please contact your health care provider. INDICATION: Altered mental status TECHNIQUE: CT head without contrast. COMPARISON: None. FINDINGS: No intracranial hemorrhage. No discrete mass or mass effect. There is no midline shift. The basilar cisterns are patent. No hydrocephalus. The khan-white matter interface is otherwise preserved. No acute osseous abnormality. No extracalvarial soft tissue abnormality. The mastoid air cells are clear. The paranasal sinuses are well-aerated. The visualized portions of the orbits and globes are unremarkable. IMPRESSION: No acute intracranial process per unenhanced head CT. Please note that all CT scans at this facility use dose modulation, iterative reconstruction, and/or weight-based dosing when appropriate to reduce radiation dose to as low as reasonably achievable. Dictated by Sudhakar Kumar MD @ 04/21/2023 1:11:02 PM (Electronically Signed)
[2023-04-21 13:10] LABS: Appearance Urine Slightly Cloudy (Clear); Bilirubin Urine 2+ (Negative); Blood Urine Negative (Negative); Color Urine Orange (Yellow); Glucose Urine Negative (Negative); Ketones Urine 1+ (Negative); Leukocyte Esterase Urine Negative (Negative); Nitrite Urine Negative (Negative); Protein Urine Negative (Negative); Specific Gravity Urine >= 1.030 (1.000-1.030); pH Urine 5.5 (5.0-8.5)
[2023-04-21 13:54] LABS: Amorphous Sediment Urine Few; Bacteria Urine Few; Mucus Urine Few; RBC Urine 0-2 (0-2); Squamous Epithelial Cell Urine Few (None-Few); WBC Urine 0-2 (0-5)
[2023-04-21] MEDS: 0.9 % SODIUM CHLORIDE 500 ML 500 ML 1000 ML IV (14:33)
[2023-04-21] MEDS: ONDANSETRON 2 MG/ML inj 4 MG IVP (14:33)
== END 2023-04-21 15:23 | disposition home or self-care (01) ==
PROVIDERS: Emergency Provider Family Medicine; PCP Physician Assistant Medical
DX: R21 Rash and other nonspecific skin eruption (principal); R11.10 Vomiting, unspecified; E86.0 Dehydration
CPT/HCPCS: 36415; 70450; 80048; 80076; 81001; 82077; 82140; 83735; 83880; 84443; 85025; 85651; 86140; 87086; 93005; 96374; 96375; 99284; J2405; J2920; J7030; J7120

== ENCOUNTER 2023-05-08 10:08 | Emergency (ER) | payer MEDICARE, OTHER, SELFPAY ==
[2023-05-08 10:24] VITALS: BP 137/89; PULSE 89; RESP 18; TEMP 36.6; O2SAT 97; BMI 25.1
--- NOTE | 2023-05-08 10:33 | CRLHL7_ITS ---
For Patients: As a result of the Century Cures Act, medical imaging exams and procedure reports are released immediately into your electronic medical record. You may view this report before your referring provider. If you have questions, please contact your health care provider. INDICATION: Right foot swelling TECHNIQUE: Ultrasound venous duplex lower right extremity. Compression venous exam was performed using khan-scale, color Doppler, and spectral Doppler imaging. COMPARISON: None. FINDINGS: Sonographic imaging demonstrates the right common femoral, deep femoral, superficial femoral, popliteal, posterior tibial and the contralateral left common femoral veins to be fully compressible with normal color Doppler blood flow. Noncompressibility of the greater saphenous vein with echogenic material filling its lumen. This is roughly 5 millimeters from the common femoral vein. IMPRESSION: 1. No evidence of deep venous thrombosis right lower extremity. 2. Acute superficial venous thrombosis involving the right greater saphenous vein extending within 5 millimeters of the common femoral vein confluence. Dictated by Valentín Ontiveros MD @ 05/08/2023 12:27:07 PM (Electronically Signed)
--- NOTE | 2023-05-08 10:33 | ED.GENADULT ---
HPI - General Adult General Date Seen: 05/08/23 Chief complaint: Extremity Pain/Injury, Lower Stated complaint: R foot swelling 1 month post-op Time Seen by Provider: 05/08/23 10:28 Source: patient, RN notes reviewed and old records reviewed Mode of arrival: ambulatory Limitations: no limitations History of Present Illness HPI narrative: Patient is a 43-year-old woman without history of prior DVT or PE who presents for evaluation of right foot pain and swelling for the past 5 days. She had vein ligation done at [place] on April 12, developed a rash on her leg after that was itchy and followed up with the Vein surgeon. Nothing specifically was done about that, she says she took some prednisone and that has resolved. Over the past 5 days she has developed swelling over the top of her foot and it is painful to walk. She has not had fevers. No chest pain or shortness of breath. Related Data Home Medications Medication Instructions Recorded Confirmed aripiprazole 10 mg tablet 10 mg PO DAILY 09/30/22 05/04/23 bupropion HCl 300 mg 24 hr tablet, 300 mg PO QAM 09/30/22 05/04/23 extended release buspirone 10 mg tablet 10 mg PO TID 09/30/22 05/04/23 cholecalciferol (vitamin D3) 1,250 1,250 mcg PO QWEEK 09/30/22 05/04/23 mcg (50,000 unit) oral wafer citalopram 10 mg tablet 20 mg PO DAILY 09/30/22 05/04/23 ferrous sulfate 325 mg (65 mg 325 mg PO DAILY 09/30/22 05/04/23 iron) tablet gabapentin 300 mg capsule 300 mg PO QID 09/30/22 05/04/23 lamotrigine 25 mg tablet 50 mg PO DAILY 09/30/22 05/04/23 mirtazapine 7.5 mg tablet 7.5 mg PO HS 09/30/22 05/04/23 naproxen 500 mg tablet,delayed 500 mg PO BID 09/30/22 05/04/23 release (EC-Naproxen) omeprazole 20 mg tablet,delayed 20 mg PO DAILY 09/30/22 05/04/23 release sennosides 8.6 mg-docusate sodium 2 tab-cap PO BID 09/30/22 05/04/23 50 mg tablet (Senexon-S) acetaminophen 500 mg tablet 1,000 mg PO Q6H PRN pain 10/06/22 05/04/23 methocarbamol 500 mg tablet 500 mg PO QID 10/06/22 05/04/23 epinephrine 0.3 mg/0.3 mL IM 01/15/23 05/04/23 injection, auto-injector Previous Rx's Medication Instructions Recorded valacyclovir 500 mg tablet 500 mg PO DAILY Antiviral #1 tab 10/13/22 diphenhydramine HCl 25 mg capsule 50 mg (2 x 25 mg) PO TID PRN #30 01/02/23 (Benadryl) caps hydrocortisone 2.5 % lotion 1 applic topical BID PRN #59 mL 01/03/23 epinephrine 0.3 mg/0.3 mL 0.3 ml IM Q5-15M PRN #2 ea 01/15/23 injection, auto-injector ondansetron 4 mg disintegrating 4 mg PO QID PRN nausea and 04/21/23 tablet vomiting #10 tabs prednisone 20 mg tablet 20 mg PO BID 3 days #6 tabs 04/21/23 apixaban 5 mg tablet (Eliquis) 5 mg PO BID #60 tabs 05/08/23 Allergies Allergy/AdvReac Type Severity Reaction Status Date / Time shellfish derived Allergy Severe Anaphylaxis Verified 05/04/23 12:03 cephalexin [From Keflex] Allergy Intermediate Rash Verified 05/04/23 12:03 Cephalosporins Allergy Intermediate Rash Verified 05/04/23 12:03 Penicillins Allergy Intermediate Rash Verified 05/04/23 12:03 Review of Systems Status of ROS: Reports: 6 or more systems reviewed and unremarkable except as noted in History and below [facility] Medical History History of substance abuse ?F19.11 - Other psychoactive substance abuse, in remission (ICD-10) History of alcohol abuse ?F10.11 - Alcohol abuse, in remission (ICD-10) Femoral neck fracture ?S72.009A - Fracture of unspecified part of neck of unspecified femur, initial encounter for closed fracture (ICD-10) Cubital tunnel syndrome, bilateral ?G56.23 - Lesion of ulnar nerve, bilateral upper limbs (ICD-10) Obesity ?E66.9 - Obesity, unspecified (ICD-10) Substance use disorder ?F19.90 - Other psychoactive substance use, unspecified, uncomplicated (ICD-10) Back problem ?M53.9 - Dorsopathy, unspecified (ICD-10) Anxiety ?F41.9 - Anxiety disorder, unspecified (ICD-10) Depression ?F32.A - Depression, unspecified (ICD-10) Asthma ?J45.909 - Unspecified asthma, uncomplicated (ICD-10) Surgical History Status post total hip replacement, 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) ?Z96.642 - Presence of left artificial hip joint (ICD-10) Status post laparoscopic cholecystectomy (09/13/19) ?Z90.49 - Acquired absence of other specified parts of digestive tract (ICD-10) History of varicose vein ligation ?Z98.890 - Other specified postprocedural states (ICD-10) ?Z86.79 - Personal history of other diseases of the circulatory system (ICD-10) Hx of hammer toe correction (10/22/03) ?Z98.890 - Other specified postprocedural states (ICD-10) ?Z87.39 - Personal history of other diseases of the musculoskeletal system and connective tissue (ICD-10) Family History Father Leukemia Social History Narrative: single, 2 kids, nonsmoker, no EtOH Highest level of school completed/degree received: Associate degree: occupational, technical, vocational program Smoking Status: Former smoker Do you use any of these nicotine containing products: None Second hand tobacco smoke exposure: No How often do you have a drink containing alcohol: never How often do you have six or more drinks on one occasion: Never AUDIT-C Alcohol total score: 0 Non-prescribed substance use: denies use Caffeine: Yes service: No Exam Narrative: Exam Narrative: Vital signs reviewed In general, an alert, nontoxic woman. Cooperative, breathing easily. Extremities: Examination of the right lower extremity shows mild edema on the top of her foot without significant erythema or warmth. Ankle is mildly edematous on the right compared to the left but she does not have any pitting edema. No calf tenderness. Pulses intact. Distal CMS normal. Skin: Warm dry well perfused. Previously seen rash has resolved. Const: Vital Signs, click to edit/add: Vital Signs - 24 hr 05/08/23 10:24 05/08/23 11:49 Temperature 97.8 F 97.8 F Pulse Rate [Right Pulse Oximeter] 89 89 Respiratory Rate 18 18 Blood Pressure [Ri ght Upper Arm] 137/89 137/89 Pulse Oximetry 97 Oxygen Delivery Me thod Room Air Documenting provider has reviewed patient's vital signs: yes Course Course ED Course: Will go ahead and get Dopplers to rule out DVT. This does not look cellulitic. Preliminary read of the right lower extremity Doppler is of superficial thrombophlebitis in the greater saphenous vein very close to the saphenofemoral junction. There is no evidence of DVT. Review of up-to-date does suggest therapeutic treatment with anticoagulation for 3 months given her constellation of findings. I have discussed all this with her. She should not take NSAIDs while taking the Eliquis which I have prescribed. Tylenol as needed for pain, elevation, compression stockings. Primary care follow-up in the next couple of weeks for recheck. Return any time for worsening. Vital Signs Vital signs: Initial Vital Signs Temperature 97.8 F 05/08/23 10:24 Temperature Source Temporal Artery Scan 05/08/23 10:24 Pulse Rate 89 05/08/23 10:24 Respiratory Rate 18 05/08/23 10:24 Blood Pressure 137/89 05/08/23 10:24 Blood Pressure Mean 105 05/08/23 10:24 Blood Pressure Position Sitting 05/08/23 10:24 Pulse Oximetry 97 05/08/23 10:24 Oxygen Delivery Method Room Air 05/08/23 10:24 Vital Signs Temperature 97.8 F 05/08/23 10:24 Pulse Rate 89 05/08/23 10:24 Respiratory Rate 18 05/08/23 10:24 Blood Pressure 137/89 05/08/23 10:24 Pulse Oximetry 97 05/08/23 10:24 Oxygen Delivery Method Room Air 05/08/23 10:24 Temperature 97.8 F 05/08/23 11:49 Pulse Rate 89 05/08/23 11:49 Respiratory Rate 18 05/08/23 11:49 Blood Pressure 137/89 05/08/23 11:49 Pulse Oximetry 97 05/08/23 10:24 Oxygen Delivery Method Room Air 05/08/23 10:24 Medications Administered Medications: Discontinued Medications Generic Name Dose Route Start Last Admin Trade Name Dwight PRN Reason Stop Dose Admin Acetaminophen 1,000 mg 05/08/23 11:30 05/08/23 11:40 Acetaminophen 500 Mg Tablet PO 05/08/23 11:31 1,000 mg ONCE ONE Administration Discharge Plan Discharge Clinical Impression: Superficial thrombophlebitis Patient Disposition: Home, Self-Care Condition: Stable Instructions: Superficial Thrombophlebitis (ED) Additional Instructions: Your ultrasound does not show any evidence of blood clots, however you do have inflammation of the vein in your upper leg and this is likely causing your symptoms. Because of the location of this inflammation, it is recommended that we treat with blood thinners to prevent development of blood clots. Please follow-up with your primary doctor in the next couple of weeks for recheck and to discuss further anticoagulation. You can use Tylenol as needed for pain, elevate your leg as much as possible. Compression stockings may be helpful as well. Avoid medicines like ibuprofen/naproxen/Aleve while you are taking a blood thinner. For worsening or severe symptoms return at any time for re-evaluation. Prescriptions: New Eliquis 5 mg tablet 5 mg PO BID Qty: 60 2RF No Action lamotrigine 25 mg tablet 50 mg PO DAILY citalopram 10 mg tablet 20 mg PO DAILY bupropion HCl 300 mg tablet extended release 24 hr 300 mg PO QAM ferrous sulfate 325 mg (65 mg iron) tablet 325 mg PO DAILY cholecalciferol (vitamin D3) 1,250 mcg (50,000 unit) wafer 1,250 mcg PO QWEEK omeprazole 20 mg tablet,delayed release (DR/EC) 20 mg PO DAILY aripiprazole 10 mg tablet 10 mg PO DAILY mirtazapine 7.5 mg tablet 7.5 mg PO HS sennosides-docusate sodium [Senexon-S] 8.6-50 mg tablet 2 tab-cap PO BID naproxen [EC-Naproxen] 500 mg tablet,delayed release (DR/EC) 500 mg PO BID Hold Instructions: Resume on 11/07/22. Resume once you are no longer taking Tordol or aspirin buspirone 10 mg tablet 10 mg PO TID gabapentin 300 mg capsule 300 mg PO QID acetaminophen 500 mg tablet 1,000 mg PO Q6H PRN (Reason: pain) methocarbamol 500 mg tablet 500 mg PO QID diphenhydramine HCl [Benadryl] 25 mg capsule 50 mg PO TID PRNQty: 30 0RF hydrocortisone 2.5 % lotion 1 applic topical BID PRNQty: 59 0RF epinephrine 0.3 mg/0.3 mL auto-injector IM epinephrine 0.3 mg/0.3 mL auto-injector 0.3 ml IM Q5-15M PRNQty: 2 0RF Rx Instructions: do not exceed 3 doses per episode prednisone 20 mg tablet 20 mg PO BID 3 Days Qty: 6 0RF ondansetron 4 mg tablet,disintegrating 4 mg PO QID PRN (Reason: nausea and vomiting) Qty: 10 0RF valacyclovir 500 mg tablet 500 mg PO DAILY Qty: 1 0RF Follow Up/Referrals: Kika Johnston PA-C [Primary Care Provider] - Stand Alone Forms: MyHealth Info Instructions
[2023-05-08] MEDS: ACETAMINOPHEN 500 MG TABLET 1000 MG PO (11:40)
[2023-05-08 11:49] VITALS: BP 137/89; PULSE 89; RESP 18; TEMP 36.6
== END 2023-05-08 11:55 | disposition home or self-care (01) ==
PROVIDERS: Emergency Provider Emergency Medicine; PCP Physician Assistant Medical
DX: I80.01 Phlebitis and thrombophlebitis of superficial vessels of right lower extremity (principal)
CPT/HCPCS: 93971; 95992; 99284; A9270

== ENCOUNTER 2023-05-09 11:00 | Outpatient (RCR) | payer MEDICARE, OTHER, SELFPAY | END 2023-09-26 23:59 | disposition home or self-care (01) | PROVIDERS: PCP Physician Assistant Medical; Visit Provider Internal Medicine | DX: M54.2 Cervicalgia (principal); M54.6 Pain in thoracic spine; Z51.89 Encounter for other specified aftercare | CPT/HCPCS: 97110; 97140; 97161; 97162 ==

== ENCOUNTER 2023-05-11 18:18 | Outpatient (CLI) | payer MEDICARE, OTHER, SELFPAY | END 2023-05-11 18:19 | disposition home or self-care (01) | LOC: AMB 05-13 05:54 | PROVIDERS: PCP Physician Assistant Medical; Visit Provider Emergency Medicine | DX: R07.89 Other chest pain (principal) | CPT/HCPCS: A0425; A0427 ==

== ENCOUNTER 2023-05-11 18:41 | Emergency (ER) | payer MEDICARE, OTHER, SELFPAY ==
[2023-05-11 18:45] VITALS: BP 151/85; PULSE 78; RESP 18; TEMP 36.4; O2SAT 97; BMI 40.3
--- NOTE | 2023-05-11 18:56 | PC.NURSE ---
Assume care of this pt. Pt sitting on chair c/o of neck pain. operations and intelligence assistant had bought water to pt per request. Pt denies nausea at present. Had just walked to the BR with stable gait and given urine sample.
--- NOTE | 2023-05-11 19:17 | CRLHL7_ITS ---
For Patients: As a result of the Century Cures Act, medical imaging exams and procedure reports are released immediately into your electronic medical record. You may view this report before your referring provider. If you have questions, please contact your health care provider. CLINICAL HISTORY: Neck pain. TECHNIQUE: Helical CT acquisition of the cervical spine was performed. Coronal and sagittal reformations were performed and interpreted. COMPARISON: None available. FINDINGS: There is no evidence of acute displaced fracture or traumatic malalignment of the cervical spine. The facets are well aligned. Vertebral body heights are maintained without evidence of significant compression deformity. No evidence of significant trauma at the craniocervical junction. Degenerative changes at C5-6 with mild loss of intervertebral disc height and endplate osteophytic ridging. No significant spinal canal stenosis. The visualized prevertebral soft tissues are unremarkable. The visualized lung apices are unremarkable. IMPRESSION: No acute displaced fracture or traumatic malalignment of the cervical spine. Please note that all CT scans at this facility use dose modulation, iterative reconstruction, and/or weight-based dosing when appropriate to reduce radiation dose to as low as reasonably achievable. Dictated by Art Dixon MD @ 05/11/2023 9:08:08 PM (Electronically Signed)
--- NOTE | 2023-05-11 19:17 | CRLHL7_ITS ---
For Patients: As a result of the Century Cures Act, medical imaging exams and procedure reports are released immediately into your electronic medical record. You may view this report before your referring provider. If you have questions, please contact your health care provider. CLINICAL HISTORY: Back pain. TECHNIQUE: Helical CT acquisition of the lumbar spine was performed. Coronal and sagittal reformations were performed and interpreted. COMPARISON: None available. FINDINGS: There are 5 [id number] lumbar type vertebra. Note is made of a rudimentary S1-S2 intervertebral disc. There is no evidence of acute displaced fracture or traumatic malalignment of the lumbar spine. Vertebral body heights are maintained without evidence of significant compression deformity. Lumbar spondylosis. Very mild degenerative retrolisthesis of L4 on L5 and L5 on S1. At L4-5, mild disc bulge and mild bilateral facet arthropathy contributes to very low-grade spinal canal stenosis. There is probable mild to moderate bilateral foraminal narrowing. At L5-S1, there is probable mild bilateral foraminal narrowing. The paravertebral soft tissues are unremarkable. IMPRESSION: No acute displaced fracture or traumatic malalignment of the lumbar spine. Please note that all CT scans at this facility use dose modulation, iterative reconstruction, and/or weight-based dosing when appropriate to reduce radiation dose to as low as reasonably achievable. Dictated by Art Dixon MD @ 05/11/2023 9:16:19 PM (Electronically Signed)
--- NOTE | 2023-05-11 20:22 | ED.BACK ---
HPI - Back Pain/Injury General Date Seen: 05/11/23 Chief Complaint: Back Injury/Pain Stated Complaint: Neck and back pain Time Seen by Provider: 05/11/23 18:58 Source: patient Mode of arrival: ambulatory Limitations: no limitations History of Present Illness HPI Narrative: Patient is a 43-year-old female presented emergency department for neck and back pain. She states she feels like she is having a shock going down both arms. She can not remember any recent injuries but states the pain is getting worse. She does have chronic neck and back pain and she is set to see outpatient follow-up next week. She currently takes baclofen for her pain. Denies weakness or numbness. States the pain is midline of her cervical and lumbar spine. Denies saddle anesthesia, bowel or bladder incontinence, urinary retention, fevers. Patient states she was told she can get CT scan to better evaluate her spine. She is not taking anything for pain today Related Data Home Medications Medication Instructions Recorded Confirmed aripiprazole 10 mg tablet 10 mg PO DAILY 09/30/22 05/08/23 bupropion HCl 300 mg 24 hr tablet, 300 mg PO QAM 09/30/22 05/08/23 extended release buspirone 10 mg tablet 10 mg PO TID 09/30/22 05/08/23 cholecalciferol (vitamin D3) 1,250 1,250 mcg PO QWEEK 09/30/22 05/08/23 mcg (50,000 unit) oral wafer citalopram 10 mg tablet 20 mg PO DAILY 09/30/22 05/08/23 ferrous sulfate 325 mg (65 mg 325 mg PO DAILY 09/30/22 05/08/23 iron) tablet gabapentin 300 mg capsule 300 mg PO QID 09/30/22 05/08/23 lamotrigine 25 mg tablet 50 mg PO DAILY 09/30/22 05/08/23 mirtazapine 7.5 mg tablet 7.5 mg PO HS 09/30/22 05/08/23 naproxen 500 mg tablet,delayed 500 mg PO BID 09/30/22 05/08/23 release (EC-Naproxen) omeprazole 20 mg tablet,delayed 20 mg PO DAILY 09/30/22 05/08/23 release sennosides 8.6 mg-docusate sodium 2 tab-cap PO BID 09/30/22 05/08/23 50 mg tablet (Senexon-S) acetaminophen 500 mg tablet 1,000 mg PO Q6H PRN pain 10/06/22 05/08/23 methocarbamol 500 mg tablet 500 mg PO QID 10/06/22 05/08/23 epinephrine 0.3 mg/0.3 mL IM 01/15/23 05/08/23 injection, auto-injector baclofen 10 mg tablet 10 mg PO 3XD 05/11/23 05/11/23 Previous Rx's Medication Instructions Recorded valacyclovir 500 mg tablet 500 mg PO DAILY Antiviral #1 tab 10/13/22 diphenhydramine HCl 25 mg capsule 50 mg (2 x 25 mg) PO TID PRN #30 01/02/23 (Benadryl) caps hydrocortisone 2.5 % lotion 1 applic topical BID PRN #59 mL 01/03/23 epinephrine 0.3 mg/0.3 mL 0.3 ml IM Q5-15M PRN #2 ea 01/15/23 injection, auto-injector ondansetron 4 mg disintegrating 4 mg PO QID PRN nausea and 04/21/23 tablet vomiting #10 tabs prednisone 20 mg tablet 20 mg PO BID 3 days #6 tabs 04/21/23 apixaban 5 mg tablet (Eliquis) 5 mg PO BID #60 tabs 05/08/23 Allergies Allergy/AdvReac Type Severity Reaction Status Date / Time shellfish derived Allergy Severe Anaphylaxis Verified 05/11/23 18:49 cephalexin [From Keflex] Allergy Intermediate Rash Verified 05/11/23 18:49 Cephalosporins Allergy Intermediate Rash Verified 05/11/23 18:49 Penicillins Allergy Intermediate Rash Verified 05/11/23 18:49 Review of Systems Narrative: Negative unless stated in HPI [facility] Medical History (Updated 05/11/23 @ 21:32 by Campos Miranda DO) History of substance abuse ?F19.11 - Other psychoactive substance abuse, in remission (ICD-10) History of alcohol abuse ?F10.11 - Alcohol abuse, in remission (ICD-10) Femoral neck fracture ?S72.009A - Fracture of unspecified part of neck of unspecified femur, initial encounter for closed fracture (ICD-10) Cubital tunnel syndrome, bilateral ?G56.23 - Lesion of ulnar nerve, bilateral upper limbs (ICD-10) Obesity ?E66.9 - Obesity, unspecified (ICD-10) Substance use disorder ?F19.90 - Other psychoactive substance use, unspecified, uncomplicated (ICD-10) Back problem ?M53.9 - Dorsopathy, unspecified (ICD-10) Anxiety ?F41.9 - Anxiety disorder, unspecified (ICD-10) Depression ?F32.A - Depression, unspecified (ICD-10) Asthma ?J45.909 - Unspecified asthma, uncomplicated (ICD-10) Surgical History Status post total hip replacement, 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) ?Z96.642 - Presence of left artificial hip joint (ICD-10) Status post laparoscopic cholecystectomy (09/13/19) ?Z90.49 - Acquired absence of other specified parts of digestive tract (ICD-10) History of varicose vein ligation ?Z98.890 - Other specified postprocedural states (ICD-10) ?Z86.79 - Personal history of other diseases of the circulatory system (ICD-10) Hx of hammer toe correction (10/22/03) ?Z98.890 - Other specified postprocedural states (ICD-10) ?Z87.39 - Personal history of other diseases of the musculoskeletal system and connective tissue (ICD-10) Family History Father Leukemia Social History Narrative: single, 2 kids, nonsmoker, no EtOH Highest level of school completed/degree received: Associate degree: occupational, technical, vocational program Smoking Status: Former smoker Do you use any of these nicotine containing products: None Second hand tobacco smoke exposure: No How often do you have a drink containing alcohol: never How often do you have six or more drinks on one occasion: Never AUDIT-C Alcohol total score: 0 Non-prescribed substance use: denies use Caffeine: Yes service: No Exam Narrative: Exam Narrative: Const: Well-nourished, Well-developed, in mild distress Eyes: PERRL, no conjunctival injection, and symmetrical lids HENT: Atraumatic external nose and ears. Moist mucous membranes. Neck: Symmetric, trachea midline, No thyromegaly. MSK:Extremities w/o deformity, Normal Active ROM, midline pain throughout cervical spine and around L1-L2 of lumbar spine Skin: Warm, Dry. No rashes or lesions. Neuro: Normal Muscle tone, No focal neurological deficits. Psych: Awake, Alert, & Oriented x3. Appropriate mood and affect. Const: Vital Signs, click to edit/add: Vital Signs - 24 hr 05/11/23 18:45 Temperature 97.5 F L Pulse Rate [Pulse Oximeter] 78 Respiratory Rate 18 Blood Pressure [Le ft Upper Arm] 151/85 H Pulse Oximetry 97 Oxygen Delivery Me thod Room Air Course Vital Signs Vital signs: Initial Vital Signs Temperature 97.5 F L 05/11/23 18:45 Temperature Source Temporal Artery Scan 05/11/23 18:45 Pulse Rate 78 05/11/23 18:45 Respiratory Rate 18 05/11/23 18:45 Blood Pressure 151/85 H 05/11/23 18:45 Blood Pressure Mean 107 H 05/11/23 18:45 Blood Pressure Position Sitting 05/11/23 18:45 Pulse Oximetry 97 05/11/23 18:45 Oxygen Delivery Method Room Air 05/11/23 18:45 Vital Signs Temperature 97.5 F L 05/11/23 18:45 Pulse Rate 78 05/11/23 18:45 Respiratory Rate 18 05/11/23 18:45 Blood Pressure 151/85 H 05/11/23 18:45 Pulse Oximetry 97 05/11/23 18:45 Oxygen Delivery Method Room Air 05/11/23 18:45 Temperature 97.5 F L 05/11/23 18:45 Pulse Rate 78 05/11/23 18:45 Respiratory Rate 18 05/11/23 18:45 Blood Pressure 151/85 H 05/11/23 18:45 Pulse Oximetry 97 05/11/23 18:45 Oxygen Delivery Method Room Air 05/11/23 18:45 Medications Administered Medications: Discontinued Medications Generic Name Dose Route Start Last Admin Trade Name Freq PRN Reason Stop Dose Admin Ketorolac Tromethamine 15 mg 05/11/23 20:05 05/11/23 20:26 Ketorolac 15 Mg/Ml Inj IVP 05/11/23 20:06 15 mg ONCE ONE Administration MDM - Back Pain/Injury MDM Narrative Medical decision making narrative: Patient is a 43-year-old female presenting to emergency department for neck and low back pain. She does have chronic pain but states the pain has gotten worse over the past few days. She cannot remember if she hurt herself for not. Patient states she was told she could get CT scans to get a better evaluation. I explained to her that with no known trauma this is very unlikely to show anything. She was adamant that she believe she needs CT scans and after a long conversation I it was decided that I will order a CT scan of her cervical and lumbar spine. She is given Toradol for pain. Says she has been walking around the emergency department was told to go back to her room several times. After the Toradol she says her pain is still severe not any better. CT scan showed no acute injuries. There is chronic spinal stenosis this is likely the cause of her symptoms. We will discharge her home. She was given a couple days of oxycodone through [facility]. She is agreeable to this plan Imaging Data CT Cervical Spine : Radiologist's impression: No acute displaced fracture or traumatic malalignment of the cervical spine. Please note that all CT scans at this facility use dose modulation, iterative reconstruction, and/or weight-based dosing when appropriate to reduce radiation dose to as low as reasonably achievable. Dictated by Art Dixon MD @ 05/11/2023 9:08:[address] lumbar spine: Radiologist's impression: No acute displaced fracture or traumatic malalignment of the lumbar spine. Please note that all CT scans at this facility use dose modulation, iterative reconstruction, and/or weight-based dosing when appropriate to reduce radiation dose to as low as reasonably achievable. Dictated by Art Dixon MD @ 05/11/2023 9:16:19 PM Discharge Plan Discharge Clinical Impression: Low back pain Patient Disposition: Home, Self-Care Condition: Stable Instructions: Acute Low Back Pain (ED) Additional Instructions: Use Tylenol and a topical NSAID for your pain. If that is not helping use the oxycodone. Keep your already scheduled follow-up appointment for your back pain Prescriptions: No Action lamotrigine 25 mg tablet 50 mg PO DAILY citalopram 10 mg tablet 20 mg PO DAILY bupropion HCl 300 mg tablet extended release 24 hr 300 mg PO QAM ferrous sulfate 325 mg (65 mg iron) tablet 325 mg PO DAILY cholecalciferol (vitamin D3) 1,250 mcg (50,000 unit) wafer 1,250 mcg PO QWEEK omeprazole 20 mg tablet,delayed release (DR/EC) 20 mg PO DAILY aripiprazole 10 mg tablet 10 mg PO DAILY mirtazapine 7.5 mg tablet 7.5 mg PO HS sennosides-docusate sodium [Senexon-S] 8.6-50 mg tablet 2 tab-cap PO BID naproxen [EC-Naproxen] 500 mg tablet,delayed release (DR/EC) 500 mg PO BID Hold Instructions: Resume on 11/07/22. Resume once you are no longer taking Tordol or aspirin buspirone 10 mg tablet 10 mg PO TID gabapentin 300 mg capsule 300 mg PO QID acetaminophen 500 mg tablet 1,000 mg PO Q6H PRN (Reason: pain) methocarbamol 500 mg tablet 500 mg PO QID diphenhydramine HCl [Benadryl] 25 mg capsule 50 mg PO TID PRNQty: 30 0RF hydrocortisone 2.5 % lotion 1 applic topical BID PRNQty: 59 0RF epinephrine 0.3 mg/0.3 mL auto-injector IM epinephrine 0.3 mg/0.3 mL auto-injector 0.3 ml IM Q5-15M PRNQty: 2 0RF Rx Instructions: do not exceed 3 doses per episode baclofen 10 mg tablet 10 mg PO 3XD prednisone 20 mg tablet 20 mg PO BID 3 Days Qty: 6 0RF ondansetron 4 mg tablet,disintegrating 4 mg PO QID PRN (Reason: nausea and vomiting) Qty: 10 0RF Eliquis 5 mg tablet 5 mg PO BID Qty: 60 2RF valacyclovir 500 mg tablet 500 mg PO DAILY Qty: 1 0RF Follow Up/Referrals: Kika Johnston [facility] [Primary Care Provider] - Stand Alone Forms: [facility] Info Instructions
[2023-05-11] MEDS: KETOROLAC 15 MG/ML inj IVP (20:26)
--- NOTE | 2023-05-11 20:55 | PC.NURSE ---
Pt up to BR with stable gait. No requests at this time.
--- NOTE | 2023-05-11 21:28 | PC.NURSE ---
Pt has call light on-I got my report back, I have bones that are compressing. MD notified. at for discussion.
--- NOTE | 2023-05-11 21:42 | PC.NURSE ---
Written and verbal D/C per MD and RN. IV D/C intact. I am so glad he gave me pain medications, I have so much pain, I have had this for many years! Pt ambulate with steady gait. Pt called for ride home.
== END 2023-05-11 21:53 | disposition home or self-care (01) ==
PROVIDERS: Emergency Provider Student in an Organized Health Care Education/Training Program; PCP Physician Assistant Medical
DX: M54.50 Low back pain, unspecified (principal)
CPT/HCPCS: 72125; 72131; 96374; 99282; 99283; J1885

== ENCOUNTER 2023-05-12 06:04 | Outpatient (CLI) | payer MEDICARE, OTHER, SELFPAY | END 2023-05-12 06:05 | disposition home or self-care (01) | LOC: AMB 05-13 05:58 | PROVIDERS: PCP Physician Assistant Medical; Visit Provider Family Medicine | DX: R51.9 Headache, unspecified (principal); M54.2 Cervicalgia; M54.9 Dorsalgia, unspecified | CPT/HCPCS: A0425; A0427 ==

== ENCOUNTER 2023-05-12 06:32 | Emergency (ER) | payer MEDICARE, OTHER, SELFPAY ==
[2023-05-12 06:51] VITALS: BP 132/89; PULSE 80; RESP 16; TEMP 36.4; O2SAT 96
[2023-05-12 07:14] LABS: Amphetamine Screen Urine Negative (Negative); Barbiturate Screen Urine Negative (Negative); Benzodiazepines Screen Urine Negative (Negative); Cannabinoid Screen Urine Negative (Negative); Cocaine Screen Urine Negative (Negative); Methadone Screen Urine Negative (Negative); Methamphetamines Screen Urine Negative (Negative); Opiate Screen Urine Negative (Negative); Oxycodone Screen Urine POSITIVE (Negative); Phencyclidine Screen Urine Negative (Negative); Tricyclic Antidepressant Urine Negative (Negative)
--- NOTE | 2023-05-12 08:08 | ED.NURSE ---
continues to talk on phone, walking around in room
--- NOTE | 2023-05-12 08:30 | CRLHL7_ITS ---
For Patients: As a result of the Century Cures Act, medical imaging exams and procedure reports are released immediately into your electronic medical record. You may view this report before your referring provider. If you have questions, please contact your health care provider. INDICATION: Right leg pain TECHNIQUE: Ultrasound venous duplex lower right extremity. Compression venous exam was performed using khan-scale, color Doppler, and spectral Doppler imaging. COMPARISON: Lower extremity ultrasound 05/08/2023 FINDINGS: Sonographic imaging demonstrates the right common femoral, deep femoral, superficial femoral, popliteal, posterior tibial and contralateral left common femoral veins to be fully compressible with normal color Doppler blood flow. Thrombus is demonstrated within the greater saphenous vein roughly 6 millimeters from the common femoral vein confluence. IMPRESSION: 1. Superficial venous thrombosis involving the right greater saphenous vein extending to the distal greater saphenous vein, 6 millimeters from the common femoral vein. Appearance is stable compared to the study of 4 days earlier. 2. No evidence of deep venous thrombosis. Stable examination. Dictated by Valentín Ontiveros MD @ 05/12/2023 9:55:50 AM (Electronically Signed)
[2023-05-12] MEDS: ONDANSETRON 2 MG/ML inj 4 MG IVP ×2 (08:38→13:38)
[2023-05-12] MEDS: diazePAM 5 MG/ML inj IV (08:38)
--- NOTE | 2023-05-12 08:52 | ED.GENADULT ---
HPI - General Adult General Date Seen: 05/12/23 Chief complaint: Headache/Migraine Stated complaint: Headache/Migraine Time Seen by Provider: 05/12/23 07:50 History of Present Illness HPI narrative: This is a 43-year-old female with a very complex presentation. History is limited because the patient is a 10 gentle, non chronological, confusing historian who frequently jump to between multiple separate complaints and concerns. She was seen in the ER yesterday. It sounds like her complaints yesterday were primarily centered on neck and low back pain. She had CT imaging that showed spinal stenosis but no other acute problem. She says she was told she has ?spinal stenosis that is causing her back pain. However when I read the lumbar spine report in indicates that she only has very low-grade stenosis. She has multiple concerns today. With some effort I am able to determine that her biggest problem is her neck and her entire back. She says she is having neck pain and back pain. This is been and ongoing for many years. She can not even decide how many years it has been hurting but perhaps 10 years, maybe even 20 years. It sounds like her neck and back pain have been getting worse lately. She really can not determine when they got worse but perhaps 1 or 2 or maybe 3 or 4 weeks ago. She is very sure that she has not fallen or injure her neck or back. She has no new activities or any strenuous activity. She says that her back pain is worse when she is walking and sometimes she gets electrical shocks zapping down her legs. She also says that sometimes her back gives out when she is doing her activities such as carrying her laundry basket down her steps. For the past week her neck and back mm bothering more. She says she had to have someone bag and carry her groceries at the grocery store the other day because her back was hurting. Sometimes she gets pain down her arms and sometimes down her legs. The pain is more in her right leg than in her left leg. In terms of distribution is pain, it is difficult to determine but it sounds like the pain affects her right leg basically from the knee down to the foot circumferentially. Not clear dermatomal pattern there. She can not really tell me where her left leg hurts. She says her ?entire? back hurts. It is not really more 1 side or the other. Later in our conversation it turns out that she has been apparently seeing a physical therapist and doing some exercises. She says when they were palpating her back the other day or couple of weeks ago it caused pain. She says her doctor (Kika) put her on baclofen. She really can not tell me what else she has been taking for her back pain. I reviewed her med list with her. The med list in our computer is not up-to-date. She has a printed list of meds from her pharmacy. On her printed list her meds include aripiprazole, bupropion, BuSpar, citalopram, ferrous sulfate, gabapentin, lamotrigine, mirtazapine, naproxen, Senexon, valacyclovir. Not included on her printed list. Her doctor put her on baclofen a couple weeks ago. She apparently filled the baclofen and different pharmacy than her normal pharmacy. She was also put on prednisone for a few days recently-unclear when. In her computer list she is listed to be on methocarbamol but actually has not been on that since a short course in September. In our computer she is listed to be on Eliquis. She was started on this last week here in the ER because she had a superficial thrombophlebitis of her right thigh. She says her doctor put her on Eliquis to keep this superficial clot from becoming a deep clot. She is not sure when she is supposed to stop the Eliquis. Also not listed on her computer list, she was given a prescription for Percocet from the ER yesterday. She says she took 2 of them this morning. She was seen in the ER yesterday. It sounds like she was really upset about her back pain so the doctor ordered CT scans. They showed spinal stenosis but no other acute surgical emergency. She was given Percocet and has an appointment to see her doctor or a spine physical therapist or someone next week on the . She can not tell me exactly who she is going to be seeing. Overnight she said her back was hurting a lot. Her back was hurting this morning so she took her Percocet about 530. Her back and legs were hurting. She called the ambulance. She also has multiple other concerns. She says her throat feels dry. She says she has been snoring overnight. She is also worried that she might have meningitis and may need a spinal tap. She does not have a headache or fever however. Unclear why she is worried about meningitis. She has not had a cough. No nasal congestion. She is worried because she has a dry throat and she has been snoring too much. She is also endorsing nausea. Sounds like that probably started after she received fentanyl, 50 mcg per EMS. She is not having any abdominal pain. While she was here in the ED she also began to say that ?her heart hurt?. It sounds like she is having some chest pain. That started after she arrived here. No other recent chest pains. She has a tremor. She says that is been going on for about a month. She says she has mental health and she sees a psychiatrist at [facility]. She can not tell me her psychiatrist's name. She also apparently has some outpatient mental health resources. She sees or deals with someone through ?[employer] She says she thinks she is on too many medications. She has been calling her psychiatrist recently asking them to stop her meds but they told her not to change anything and to stay on all of her meds. She says she has been taking them. When asked her how her mental health is doing with holidays she says ?very good!. My mother about a month and half ago, no, about a year and half ago (she corrects herself on the timing). I am going to be seeing my daughter, who is in going to have a baby girl named Emily, on [facility]. I am going to be with my friend on [place]! She also tells me that she is on Eliquis. It sounds like she had a superficial thrombophlebitis of her right thigh. She was put on that Eliquis to the ER. Records from ER visit 05/11-yesterday 43-year-old female presenting to emergency department for neck and low back pain. She does have chronic pain but states the pain has gotten worse over the past few days. She cannot remember if she hurt herself for not. Patient states she was told she could get CT scans to get a better evaluation. I explained to her that with no known trauma this is very unlikely to show anything. She was adamant that she believe she needs CT scans and after a long conversation I it was decided that I will order a CT scan of her cervical and lumbar spine. She is given Toradol for pain. Says she has been walking around the emergency department was told to go back to her room several times. After the Toradol she says her pain is still severe not any better. CT scan showed no acute injuries. There is chronic spinal stenosis this is likely the cause of her symptoms. We will discharge her home. She was given a couple days of oxycodone through [facility]. She is agreeable to this plan CT Lumbar Spine FINDINGS: There are 5 [id number] lumbar type vertebra. Note is made of a rudimentary S1-S2 intervertebral disc. There is no evidence of acute displaced fracture or traumatic malalignment of the lumbar spine. Vertebral body heights are maintained without evidence of significant compression deformity. Lumbar spondylosis. Very mild degenerative retrolisthesis of L4 on L5 and L5 on S1. At L4-5, mild disc bulge and mild bilateral facet arthropathy contributes to very low-grade spinal canal stenosis. There is probable mild to moderate bilateral foraminal narrowing. At L5-S1, there is probable mild bilateral foraminal narrowing. The paravertebral soft tissues are unremarkable. IMPRESSION: No acute displaced fracture or traumatic malalignment of the lumbar spine. CT Cervical Spine FINDINGS: There is no evidence of acute displaced fracture or traumatic malalignment of the cervical spine. The facets are well aligned. Vertebral body heights are maintained without evidence of significant compression deformity. No evidence of significant trauma at the craniocervical junction. Degenerative changes at C5-6 with mild loss of intervertebral disc height and endplate osteophytic ridging. No significant spinal canal stenosis. The visualized prevertebral soft tissues are unremarkable. The visualized lung apices are unremarkable. IMPRESSION: No acute displaced fracture or traumatic malalignment of the cervical spine. ED Visit 05/18 for right foot and leg pain 43-year-old woman without history of prior DVT or PE who presents for evaluation of right foot pain and swelling for the past 5 days. She had vein ligation done at [facility] on April 12, developed a rash on her leg after that was itchy and followed up with the Vein surgeon. Nothing specifically was done about that, she says she took some prednisone and that has resolved. Over the past 5 days she has developed swelling over the top of her foot and it is painful to walk. She has not had fevers. No chest pain or shortness of breath Preliminary read of the right lower extremity Doppler is of superficial thrombophlebitis in the greater saphenous vein very close to the saphenofemoral junction. There is no evidence of DVT. Review of up-to-date does suggest therapeutic treatment with anticoagulation for 3 months given her constellation of findings. I have discussed all this with her. She should not take NSAIDs while taking the Eliquis which I have prescribed. Tylenol as needed for pain, elevation, compression stockings. Primary care follow-up in the next couple of weeks for recheck. IMPRESSION: 1. No evidence of deep venous thrombosis right lower extremity. 2. Acute superficial venous thrombosis involving the right greater saphenous vein extending within 5 millimeters of the common femoral vein confluence. Related Data Home Medications Medication Instructions Recorded Confirmed aripiprazole 10 mg tablet 10 mg PO DAILY 09/30/22 05/08/23 bupropion HCl 300 mg 24 hr tablet, 300 mg PO QAM 09/30/22 05/08/23 extended release buspirone 10 mg tablet 10 mg PO TID 09/30/22 05/08/23 cholecalciferol (vitamin D3) 1,250 1,250 mcg PO QWEEK 09/30/22 05/08/23 mcg (50,000 unit) oral wafer citalopram 10 mg tablet 20 mg PO DAILY 09/30/22 05/08/23 ferrous sulfate 325 mg (65 mg 325 mg PO DAILY 09/30/22 05/08/23 iron) tablet gabapentin 300 mg capsule 300 mg PO QID 09/30/22 05/08/23 lamotrigine 25 mg tablet 50 mg PO DAILY 09/30/22 05/08/23 mirtazapine 7.5 mg tablet 7.5 mg PO HS 09/30/22 05/08/23 naproxen 500 mg tablet,delayed 500 mg PO BID 09/30/22 05/08/23 release (EC-Naproxen) omeprazole 20 mg tablet,delayed 20 mg PO DAILY 09/30/22 05/08/23 release sennosides 8.6 mg-docusate sodium 2 tab-cap PO BID 09/30/22 05/08/23 50 mg tablet (Senexon-S) acetaminophen 500 mg tablet 1,000 mg PO Q6H PRN pain 10/06/22 05/08/23 methocarbamol 500 mg tablet 500 mg PO QID 10/06/22 05/08/23 epinephrine 0.3 mg/0.3 mL IM 01/15/23 05/08/23 injection, auto-injector baclofen 10 mg tablet 10 mg PO 3XD 05/11/23 05/11/23 Previous Rx's Medication Instructions Recorded valacyclovir 500 mg tablet 500 mg PO DAILY Antiviral #1 tab 10/13/22 diphenhydramine HCl 25 mg capsule 50 mg (2 x 25 mg) PO TID PRN #30 01/02/23 (Benadryl) caps hydrocortisone 2.5 % lotion 1 applic topical BID PRN #59 mL 01/03/23 epinephrine 0.3 mg/0.3 mL 0.3 ml IM Q5-15M PRN #2 ea 01/15/23 injection, auto-injector ondansetron 4 mg disintegrating 4 mg PO QID PRN nausea and 04/21/23 tablet vomiting #10 tabs prednisone 20 mg tablet 20 mg PO BID 3 days #6 tabs 04/21/23 apixaban 5 mg tablet (Eliquis) 5 mg PO BID #60 tabs 05/08/23 Allergies Allergy/AdvReac Type Severity Reaction Status Date / Time shellfish derived Allergy Severe Anaphylaxis Verified 05/11/23 18:49 cephalexin [From Keflex] Allergy Intermediate Rash Verified 05/11/23 18:49 Cephalosporins Allergy Intermediate Rash Verified 05/11/23 18:49 Penicillins Allergy Intermediate Rash Verified 05/11/23 18:49 [facility] Medical History (Updated 05/12/23 @ 14:07 by Ray Latif MD) History of substance abuse ?F19.11 - Other psychoactive substance abuse, in remission (ICD-10) History of alcohol abuse ?F10.11 - Alcohol abuse, in remission (ICD-10) Femoral neck fracture ?S72.009A - Fracture of unspecified part of neck of unspecified femur, initial encounter for closed fracture (ICD-10) Cubital tunnel syndrome, bilateral ?G56.23 - Lesion of ulnar nerve, bilateral upper limbs (ICD-10) Obesity ?E66.9 - Obesity, unspecified (ICD-10) Substance use disorder ?F19.90 - Other psychoactive substance use, unspecified, uncomplicated (ICD-10) Back problem ?M53.9 - Dorsopathy, unspecified (ICD-10) Anxiety ?F41.9 - Anxiety disorder, unspecified (ICD-10) Depression ?F32.A - Depression, unspecified (ICD-10) Asthma ?J45.909 - Unspecified asthma, uncomplicated (ICD-10) Surgical History Status post total hip replacement, 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) ?Z96.642 - Presence of left artificial hip joint (ICD-10) Status post laparoscopic cholecystectomy (09/13/19) ?Z90.49 - Acquired absence of other specified parts of digestive tract (ICD-10) History of varicose vein ligation ?Z98.890 - Other specified postprocedural states (ICD-10) ?Z86.79 - Personal history of other diseases of the circulatory system (ICD-10) Hx of hammer toe correction (10/22/03) ?Z98.890 - Other specified postprocedural states (ICD-10) ?Z87.39 - Personal history of other diseases of the musculoskeletal system and connective tissue (ICD-10) Family History Father Leukemia Social History Narrative: single, 2 kids, nonsmoker, no EtOH Highest level of school completed/degree received: Associate degree: occupational, technical, vocational program Smoking Status: Former smoker Do you use any of these nicotine containing products: None Second hand tobacco smoke exposure: No How often do you have a drink containing alcohol: never How often do you have six or more drinks on one occasion: Never AUDIT-C Alcohol total score: 0 Non-prescribed substance use: denies use Caffeine: Yes service: No Exam Narrative: Exam Narrative: Constitutional: Appears well-developed and well-nourished. Alert. She is at times very bright and conversant, almost hypomanic, and at times confused. When I am doing some parts of exam she seems to get drowsy and does often starts snoring. She is easily aroused.. Non toxic. HENT: Head: Atraumatic. Nose: Nose normal. Mouth/Throat: Oral mucosa is clear and moist. no trismus. Pharynx normal. Tonsils symmetric. No tonsillar enlargement, erythema, or exudate. Eyes: Conjunctivae normal. EOM normal. Pupils equal, round, and reactive to light. No scleral icterus. Neck: Normal range of motion. Neck supple. No tracheal deviation present. Cardiovascular: Normal rate, regular rhythm. No gallop. No friction rub. No murmur heard. Symmetric radial artery pulses Pulmonary/Chest: Effort normal. No stridor. No respiratory distress. No wheezes. No rales. No rhonchi . No tenderness. Abdominal: Soft. Bowel sounds normal. No distension. No mass. No tenderness. No rebound. No guarding. Musculoskeletal: RUE: Normal range of motion. No tenderness. No deformity LUE: Normal range of motion. No tenderness. No deformity RLE: Normal range of motion. No edema. No tenderness. No deformity LLE: Normal range of motion. No edema. No tenderness. No deformity Lymph: No cervical adenopathy. Neurological: Alert and oriented to person, place, and time. Normal strength. CN II-VII intact. No sensory deficit. GCS eye subscore is 4. GCS verbal subscore is 5. GCS motor subscore is 6. Normal coordination Skin: Skin is warm and dry. No rash noted. No pallor. Normal capillary refill. Psychiatric: Overall she is alert. She is conversant but very 10 gentle. When asked how her mental health is doing she says, ?great!?. It sounds like the holidays are going well. Her mother did pass away urine half ago but she says that is not really bothering her. She plans to see her daughter (who is ) on [facility] and then another friend or family member on [place]. She lives in her own apartment here in [place]. She takes care of herself. She says that is going well. She does have a long history mental health and sees a psychiatrist at [facility]. She thinks she is on too many medications. She has been having a tremor for the past month or so. She had asked her psychiatrist if she could stop some of her meds but they told her not to stop any. She wonders if she is having med side effects and interactions. She is not depressed or suicidal. She says she has been taking her meds. She apparently has a history of drug abuse. When she presented (at the end of the director of instrumental music before I arrived) be arriving staff indicated that she had taken all of her Percocet (8 tablets) and was out. She tells me that she took 2 this morning about 530 but she has 6 left. Midnight shift or under the impression that she was here seeking a refill of Percocet. She says she is not. Const: Vital Signs, click to edit/add: Vital Signs - 24 hr 05/12/23 06:51 Temperature 97.6 F Pulse Rate [Pulse Oximeter] 80 Respiratory Rate 16 Blood Pressure [Ri ght Upper Arm] 132/89 Pulse Oximetry 96 Oxygen Delivery Me thod Room Air Course Course ED Course: Patient had multiple re-evaluations and many bedside rechecks throughout her ER course. At 1 point she complained of chest pain. For this we obtained EKG which is nonischemic. Further workup included serial negative troponins and D-dimer. CT PA shows no evidence for PE or other acute cardiopulmonary abnormality. She then began to complain of nausea and vomiting. She was worried it was bloody. I recheck her emesis. It was bluish in purple but not blood. Nausea improved after Zofran. She tolerated oral challenge with lunch tray. She is feeling better and desiring discharge. Recheck-took another dose of her own oxycodone. Initial story was that she had been given 8 tablets after her ER visit yesterday. She had initially told EMS that she had taken them all and was out. She then told me she had only taken 2 and had 6 left. It is pretty clear she took 2 of them this morning. She took an additional 2 while she was here in the ER now says she is out. It is unclear exactly the timing that she took all these Percocet. At this point, I suspect that she has been taking it not as prescribed. She apparently has a history of substance abuse and addiction in the past. I am not sure that her overuse of the Percocet overnight tonight is truly abusive, and may reflect poorly controlled pain and poorly controlled mental health. However, with the side effects from Percocet, I think that the harm is greater than the benefit. I am not going to refill any opiates through the ER today due to the risk of misuse. She was very anxious and worried about multiple symptoms. I strongly suspect anxiety and or a component of nora is contributing to her multiple complaints. She did actually do a virtual visit with her therapist while she was in the ER. She overall says that her mental health is ?great!? and is very enthusiastic and upbeat about [place]. She has not really psychotic, manic or out of touch with reality. She is not depressed or suicidal. At this point she is not posing a risk to herself or others. However I do suspect poorly compensated mental health is driving a lot of her other symptoms, possibly somatic complaints. At this point she is not interested in inpatient mental care and. Nor do I think she would meet criteria for inpatient mental health care. She is not holdable. Vital Signs Vital signs: Initial Vital Signs Temperature 97.6 F 05/12/23 06:51 Temperature Source Temporal Artery Scan 05/12/23 06:51 Pulse Rate 80 05/12/23 06:51 Respiratory Rate 16 05/12/23 06:51 Blood Pressure 132/89 05/12/23 06:51 Blood Pressure Mean 103 05/12/23 06:51 Blood Pressure Position Supine 05/12/23 06:51 Pulse Oximetry 96 05/12/23 06:51 Oxygen Delivery Method Room Air 05/12/23 06:51 Vital Signs Temperature 97.6 F 05/12/23 06:51 Pulse Rate 80 05/12/23 06:51 Respiratory Rate 16 05/12/23 06:51 Blood Pressure 132/89 05/12/23 06:51 Pulse Oximetry 96 05/12/23 06:51 Oxygen Delivery Method Room Air 05/12/23 06:51 Temperature 97.6 F 05/12/23 06:51 Pulse Rate 80 05/12/23 06:51 Respiratory Rate 16 05/12/23 06:51 Blood Pressure 132/89 05/12/23 06:51 Pulse Oximetry 96 05/12/23 06:51 Oxygen Delivery Method Room Air 05/12/23 06:51 Medications Administered Medications: Discontinued Medications Generic Name Dose Route Start Last Admin Trade Name Freq PRN Reason Stop Dose Admin Acetaminophen 1,000 mg 05/12/23 09:52 05/12/23 13:38 Acetaminophen 500 Mg Tablet PO 05/12/23 09:53 1,000 mg ONCE ONE Administration Cyclobenzaprine HCl 10 mg 05/12/23 09:52 05/12/23 13:38 Cyclobenzaprine Hcl 10 Mg Tablet PO 05/12/23 09:53 10 mg ONCE ONE Administration Diazepam 5 mg 05/12/23 08:30 05/12/23 08:38 Diazepam 5 Mg/Ml Inj IV 05/12/23 08:31 5 mg ONCE ONE Administration Ondansetron HCl 4 mg 05/12/23 08:30 05/12/23 08:38 Ondansetron 2 Mg/Ml Inj IVP 05/12/23 08:31 4 mg ONCE ONE Administration Ondansetron HCl 4 mg 05/12/23 13:02 05/12/23 13:38 Ondansetron 2 Mg/Ml Inj IVP 05/12/23 13:03 4 mg ONCE ONE Administration Medical Decision Making MDM Narrative Medical decision making narrative: 43-year-old female with a very complex presentation 1. Back pain. She has had back pain off and on for many years. It has been worse lately the any recent trauma. She already had neck and lumbar spine imaging done by CT in the ER yesterday, as above. She was very concerned about her ?spinal stenosis? but actually the CT read of her lumbar spine says ?very low-grade spinal stenosis). It is unclear if this is truly the cause for pain. At this point no evidence for any acute need for emergent neurosurgical decompression. Her pain is not really worsened overnight. No new focal neurologic deficits to suggest cauda equina. She is on Eliquis for recent superficial thrombophlebitis but no recent trauma to suggest risk for epidural hematoma. At this point I do not think she needs emergent lumbar spine MRI. No fever or chills to suggest epidural abscess. 2. Chest pain. She began to complain of chest pain that started after she arrived here in the ER. Suspect this may be an anxiety symptom. However broad differential was considered considered. EKG and serial troponins are negative for acute coronary syndrome. Consider possible PE with her recent superficial thrombophlebitis in her right leg. Abnormal D-dimer prompted ultrasound of her leg which is stable and CT PA over lungs which is negative for PE. CT is also negative for other pulmonary pathology such as CHF, pneumonia, pneumothorax, pleural effusion, rib fracture. S pulses are symmetric on exam and her chest pain is not ripping and tearing and only transient. I do not think her chest pain combined with her chronic back pain indicate presence of aortic dissection. Risk of radiation exposure and repeat contrast load would outweigh the benefit of dedicated CT angiogram of her aorta. COVID negative. 3. Mental health. Does have multiple complaints which may be symptomatic. She is has very flighty thoughts and pressured speech. My initial concern was that she may be developing nora or hypomania. We were able to contact her daughter who had a conversation with her over the phone and feels that she is more less at her baseline. She is able to care for herself at home. She was also seen through a remote visit through her phone by her therapist today. At this point she is not meeting criteria for inpatient mental health care. She is certainly not holdable. However I do suspect that mental health, possible anxiety or possible nora are probably leading to amplification of her other symptoms. 4. Opiate use. She apparently has a history of substance abuse in the past. She was given opiates for through the ER yesterday. It is unclear exactly how she has been taking them. What is clear is that she had a tablets given yesterday and is out of them all today. Initially it sounded like she had taken them all before coming in. She told me she has only taken 2 this morning and had 6 left, however that is inaccurate as well. She took 2 this morning 5 in took 2 more out of her bottle while she was here in the ER and now the bottle is empty, so I would presume she had taken 6 tablets at home, prior to taking the last 2 tablets while here in the ER. She was nauseous, drowsy, and clearly somewhat confused when she presented which I think is probably related to her opiate use. I have concerned that the side effects and harms of opiates are awaiting the benefit for her back pain. I am not going to refill her OB opiate prescription from the ER today. She is comfortable with this. We discussed appropriate Tylenol dosing. She will use baclofen if needed. She will follow-up with her primary care doctor and/or orthopedics. She has already called to make an appointment with Dr. Brewer through the orthopedic clinic.. Lab Data Labs: Lab Results 05/12/23 05/12/23 05/12/23 Range/Units 06:50 09:00 09:40 WBC 9.51 (4.50-11.00) K/uL RBC 4.33 (4.00-5.20) m/uL Hgb 11.9 L (12.0-16.0) gm/dL Hct 38.1 (33.0-51.0) % MCV 88 (80-100) fL MCH 28 (26-34) pg MCHC 31 L (32-36) gm/dL RDW Coeff of Afshin 13.6 (11.5-15.5) % Plt Count 358 (140-440) K/uL Neut % (Auto) 76.3 H (42.0-72.0) % Lymph % (Auto) 15.1 L (20-44) % [place] % (Auto) 6.1 (0.0-11.0) % Eos % (Auto) 1.8 (0.0-7.0) % Baso % (Auto) 0.4 (0.0-3.0) % Neut # (Auto) 7.30 H (1.7-7.0) K/uL Lymph # (Auto) 1.40 (0.90-2.90) K/uL [place] # (Auto) 0.60 (0.00-0.90) K/UL Eos # (Auto) 0.17 (0.00-0.50) K/uL Baso # (Auto) 0.04 (0.00-0.30) K/uL Abs Immat Gran (auto) 0.03 (0.00-0.30) K/uL Imm/Tot Granulo (auto) 0.3 % D-Dimer Quant (PE/DVT) 0.92 H (0.00-0.50) ug/ml Sodium 139 (135-149) mmol/L Potassium 4.0 (3.6-5.1) mmol/L Chloride 104 (96-114) mmol/L Carbon Dioxide 25 (20-32) mmol/L Anion Gap 10 (7-15) mEq/L BUN 20 (5-24) mg/dL Creatinine 0.7 (0.5-1.5) mg/dL Estimated GFR 110 ml/min Glucose 109 (60-115) mg/dL Calcium 9.1 (8.4-10.6) mg/dL Troponin I < 0.01 L (0.01-0.04) ng/mL Urine Opiates Screen Negative (Negative) Ur Oxycodone Screen POSITIVE A (Negative) Urine Methadone Screen Negative (Negative) Ur Propoxyphene Screen Not Reportable Ur Barbiturates Screen Negative (Negative) U Tricyclic Antidepress Negative (Negative) Ur Phencyclidine Scrn Negative (Negative) Ur Amphetamines Screen Negative (Negative) U Methamphetamines Scrn Negative (Negative) U Benzodiazepines Scrn Negative (Negative) Urine Cocaine Screen Negative (Negative) U Marijuana (THC) Screen Negative (Negative) Ur Drug Screen Comment See Note SARS-CoV-2 (PCR) Negative SARS-CoV-2 (Negative) Influenza Type A (PCR) Negative PCR FLU A (Negative) Influenza Type B (PCR) Negative PCR FLU B (Negative) RSV (PCR) Negative PCR RSV (Negative) 05/12/23 Range/Units 11:55 WBC (4.50-11.00) K/uL RBC (4.00-5.20) m/uL Hgb (12.0-16.0) gm/dL Hct (33.0-51.0) % MCV (80-100) fL MCH (26-34) pg MCHC (32-36) gm/dL RDW Coeff of Afshin (11.5-15.5) % Plt Count (140-440) K/uL Neut % (Auto) (42.0-72.0) % Lymph % (Auto) (20-44) % [place] % (Auto) (0.0-11.0) % Eos % (Auto) (0.0-7.0) % Baso % (Auto) (0.0-3.0) % Neut # (Auto) (1.7-7.0) K/uL Lymph # (Auto) (0.90-2.90) K/uL [place] # (Auto) (0.00-0.90) K/UL Eos # (Auto) (0.00-0.50) K/uL Baso # (Auto) (0.00-0.30) K/uL Abs Immat Gran (auto) (0.00-0.30) K/uL Imm/Tot Granulo (auto) % D-Dimer Quant (PE/DVT) (0.00-0.50) ug/ml Sodium (135-149) mmol/L Potassium (3.6-5.1) mmol/L Chloride (96-114) mmol/L Carbon Dioxide (20-32) mmol/L Anion Gap (7-15) mEq/L BUN (5-24) mg/dL Creatinine (0.5-1.5) mg/dL Estimated GFR ml/min Glucose (60-115) mg/dL Calcium (8.4-10.6) mg/dL Troponin I < 0.01 L (0.01-0.04) ng/mL Urine Opiates Screen (Negative) Ur Oxycodone Screen (Negative) Urine Methadone Screen (Negative) Ur Propoxyphene Screen Ur Barbiturates Screen (Negative) U Tricyclic Antidepress (Negative) Ur Phencyclidine Scrn (Negative) Ur Amphetamines Screen (Negative) U Methamphetamines Scrn (Negative) U Benzodiazepines Scrn (Negative) Urine Cocaine Screen (Negative) U Marijuana (THC) Screen (Negative) Ur Drug Screen Comment SARS-CoV-2 (PCR) (Negative) Influenza Type A (PCR) (Negative) Influenza Type B (PCR) (Negative) RSV (PCR) (Negative) Imaging Data US right leg: Attestation: I have reviewed the pertinent imaging results. Radiologist's impression: IMPRESSION: 1. Superficial venous thrombosis involving the right greater saphenous vein extending to the distal greater saphenous vein, 6 millimeters from the common femoral vein. Appearance is stable compared to the study of 4 days earlier. 2. No evidence of deep venous thrombosis. Stable examination. CT scan - chest: Attestation: I have reviewed the pertinent imaging results. Radiologist's impression: FINDINGS: Heart and vasculature: Contrast opacification of the pulmonary arterial tree is adequate. No sign of pulmonary embolism. Cardiomegaly. Thoracic aorta and pulmonary artery are normal in caliber. Lungs and pleura: No suspicious nodules or infiltrates. Atelectasis/scarring in the lingula. Solid 4 millimeter pulmonary nodule in the right lower lobe no pleural effusions, pleural thickening, or pneumothorax. Lymph nodes/mediastinum: No mediastinal, hilar, or axillary adenopathy. Chest wall: No masses. Upper abdomen: No acute findings. Moderate hiatal hernia. Bones: Unremarkable for age. IMPRESSION: No pulmonary embolism. ECG Data Attestation: I personally reviewed and interpreted this ECG as follows: Interpretation: Normal sinus rhythm . Rate 79 [place] 140 QRS axis normal axis. Low voltage QRS. ST segment/T wave: No ST segment elevation or depression. Nonspecific T-wave flattening lead 3, V1, V2, V3. QTc: 444 Discharge Plan Discharge Clinical Impression: Back pain, Anxiety, Chest pain, Nausea & vomiting Patient Disposition: Home, Self-Care Condition: Stable Instructions: Chest Pain (DC), Back Pain (ED), Anxiety (ED) Additional Instructions: As we discussed, please use Zofran if needed for nausea. You can feel your Zofran prescription through [facility] Use Tylenol 1000 mg every 6 hours if needed for back pain. Use your baclofen for muscle relaxer. I am not going to give you refill prescriptions for opiate pain killers to the ER today. If you feel you need these medications, talked your regular doctor. I think opiate pain killers are causing drowsiness, nausea, and other undesirable side effects for you. If you have worsening pain or other problems, please come back to the ER right away. Please follow-up with your regular doctor within 4-5 days. Prescriptions: No Action lamotrigine 25 mg tablet 50 mg PO DAILY citalopram 10 mg tablet 20 mg PO DAILY bupropion HCl 300 mg tablet extended release 24 hr 300 mg PO QAM ferrous sulfate 325 mg (65 mg iron) tablet 325 mg PO DAILY cholecalciferol (vitamin D3) 1,250 mcg (50,000 unit) wafer 1,250 mcg PO QWEEK omeprazole 20 mg tablet,delayed release (DR/EC) 20 mg PO DAILY aripiprazole 10 mg tablet 10 mg PO DAILY mirtazapine 7.5 mg tablet 7.5 mg PO HS sennosides-docusate sodium [Senexon-S] 8.6-50 mg tablet 2 tab-cap PO BID naproxen [EC-Naproxen] 500 mg tablet,delayed release (DR/EC) 500 mg PO BID Hold Instructions: Resume on 11/07/22. Resume once you are no longer taking Tordol or aspirin buspirone 10 mg tablet 10 mg PO TID gabapentin 300 mg capsule 300 mg PO QID acetaminophen 500 mg tablet 1,000 mg PO Q6H PRN (Reason: pain) methocarbamol 500 mg tablet 500 mg PO QID diphenhydramine HCl [Benadryl] 25 mg capsule 50 mg PO TID PRNQty: 30 0RF hydrocortisone 2.5 % lotion 1 applic topical BID PRNQty: 59 0RF epinephrine 0.3 mg/0.3 mL auto-injector IM epinephrine 0.3 mg/0.3 mL auto-injector 0.3 ml IM Q5-15M PRNQty: 2 0RF Rx Instructions: do not exceed 3 doses per episode baclofen 10 mg tablet 10 mg PO 3XD prednisone 20 mg tablet 20 mg PO BID 3 Days Qty: 6 0RF ondansetron 4 mg tablet,disintegrating 4 mg PO QID PRN (Reason: nausea and vomiting) Qty: 10 0RF Eliquis 5 mg tablet 5 mg PO BID Qty: 60 2RF valacyclovir 500 mg tablet 500 mg PO DAILY Qty: 1 0RF Follow Up/Referrals: Kika Johnston PA-C [Primary Care Provider] - Stand Alone Forms: [facility] Info Instructions
--- NOTE | 2023-05-12 09:03 | ED.NURSE ---
Pt requesting that oxygen be applied to her, pt states My stomach is retracting and I am snoring. Pt then began making snoring noises. Pt does not appear to be having any retractions at this time. This development writer had been in the room for several minutes and had not observed the pt making snoring noises at all until this point. Pulse oximeter applied to pt, pt O2 sats ~95-96% on room air. Sketch Artist explained to pt that her O2 sats are WNL and pt does not need supplemental O2 at this time. Pt then stated that O2 was given to her in the ambulance and this made her feel better. Sketch Artist stated I would apply O2 tubing to the pt if she wanted to have the tubing on at this time but would not provide supplemental O2 as it was not indicated. updated. Pt then stated she was having a sudden onset of chest pain. MD notified of this, EKG ordered and completed, oil separator applied. Sketch Artist attempted to assess pt's chest pain further when pt stated this chest pain has actually been ongoing for some time and was not new onset pain as she had stated several minutes earlier. When pressed for details, pt unable to provide specific timeline of when this pain started.
[2023-05-12 09:51] LABS: Basophils Absolute Auto 0.04 K/uL (0.00-0.30); Basophils Percent Auto 0.4 % (0.0-3.0); Eosinophils Absolute Auto 0.17 K/uL (0.00-0.50); Eosinophils Percent Auto 1.8 % (0.0-7.0); Hematocrit 38.1 % (33.0-51.0); Hemoglobin* 11.9 gm/dL (12.0-16.0); Immature Granulocytes Abs Auto 0.03 K/uL (0.00-0.30); Immature Granulocytes Pct Auto 0.3 %; Lymphocytes Percent Auto 15.1 % (20-44); Mean Corpuscular HGB Conc 31 gm/dL (32-36); Mean Corpuscular Hemoglobin 28 pg (26-34); Mean Corpuscular Volume 88 fL (80-100); Monocytes Percent Auto 6.1 % (0.0-11.0); Neutrophils Percent Auto 76.3 % (42.0-72.0); Platelet Count* 358 K/uL (140-440); RDW Coefficient of Variation % 13.6 % (11.5-15.5); Red Blood Count 4.33 m/uL (4.00-5.20); White Blood Count* 9.51 K/uL (4.50-11.00)
[2023-05-12 09:56] LABS: Slide Review Reflex No
[2023-05-12 10:08] LABS: Chloride* 104 mmol/L (96-114); Sodium* 139 mmol/L (135-149)
[2023-05-12 10:09] LABS: PCR FLU A Negative PCR FLU A (Negative); PCR FLU B Negative PCR FLU B (Negative); PCR RSV Negative PCR RSV (Negative)
[2023-05-12 10:11] LABS: SARS PCR* Negative SARS-CoV-2 (Negative)
[2023-05-12 10:11] LABS: Creatinine* 0.7 mg/dL (0.5-1.5); Estimated Glomerular Filt Rate 110 ml/min
[2023-05-12 10:12] LABS: Anion Gap 10 mEq/L (7-15); Blood Urea Nitrogen* 20 mg/dL (5-24); Calcium* 9.1 mg/dL (8.4-10.6); Carbon Dioxide* 25 mmol/L (20-32); D Dimer Quantitative* 0.92 ug/ml (0.00-0.50); Glucose* 109 mg/dL (60-115)
--- NOTE | 2023-05-12 10:22 | CRLHL7_ITS ---
For Patients: As a result of the Century Cures Act, medical imaging exams and procedure reports are released immediately into your electronic medical record. You may view this report before your referring provider. If you have questions, please contact your health care provider. INDICATION: Chest pain TECHNIQUE: CT chest PE was acquired with 95 cc Isovue 370 IV contrast. COMPARISON: None FINDINGS: Heart and vasculature: Contrast opacification of the pulmonary arterial tree is adequate. No sign of pulmonary embolism. Cardiomegaly. Thoracic aorta and pulmonary artery are normal in caliber. Lungs and pleura: No suspicious nodules or infiltrates. Atelectasis/scarring in the lingula. Solid 4 millimeter pulmonary nodule in the right lower lobe no pleural effusions, pleural thickening, or pneumothorax. Lymph nodes/mediastinum: No mediastinal, hilar, or axillary adenopathy. Chest wall: No masses. Upper abdomen: No acute findings. Moderate hiatal hernia. Bones: Unremarkable for age. IMPRESSION: No pulmonary embolism. Please note that all CT scans at this facility use dose modulation, iterative reconstruction, and/or weight-based dosing when appropriate to reduce radiation dose to as low as reasonably achievable. Dictated by Chaz Medina MD @ 05/12/2023 1:04:41 PM (Electronically Signed)
[2023-05-12 10:33] LABS: Troponin I* < 0.01 ng/mL (0.01-0.04)
--- NOTE | 2023-05-12 10:52 | ED.NURSE ---
talked with daughter regarding pt's mentation and any safety concerns. daughter spoke with pt and then this field underwriter. Tien, daughter, feels pt is at baseline and states she does not have any safety concerns for her to go home. MD wallace
[2023-05-12 12:50] LABS: Troponin I* < 0.01 ng/mL (0.01-0.04)
[2023-05-12] MEDS: ACETAMINOPHEN 500 MG TABLET 1000 MG PO (13:38)
[2023-05-12] MEDS: CYCLOBENZAPRINE HCL 10 MG TABLET PO (13:38)
== END 2023-05-12 14:32 | disposition home or self-care (01) ==
PROVIDERS: Family Medicine; Emergency Provider Emergency Medicine; PCP Physician Assistant Medical
DX: M54.9 Dorsalgia, unspecified (principal); F41.9 Anxiety disorder, unspecified; R07.9 Chest pain, unspecified; R11.2 Nausea with vomiting, unspecified
CPT/HCPCS: 36415; 71275; 80048; 80306; 81001; 84484; 85025; 85379; 87631; 93971; 96374; 96375; 99284; 99285; A9270; J2405; J3360; Q9967

== ENCOUNTER 2023-05-12 17:09 | Outpatient (CLI) | payer MEDICARE, OTHER, SELFPAY | END 2023-05-12 17:10 | disposition home or self-care (01) | LOC: AMB 05-13 06:03 | PROVIDERS: PCP Physician Assistant Medical; Visit Provider Family Medicine | DX: M54.9 Dorsalgia, unspecified (principal) | CPT/HCPCS: A0425; A0427; A0429 ==

== ENCOUNTER 2023-05-21 10:59 | Emergency (ER) | payer MEDICARE, OTHER, SELFPAY ==
[2023-05-21 11:30] VITALS: BP 136/86; PULSE 79; RESP 20; TEMP 36.6; O2SAT 99; BMI 40.3
--- NOTE | 2023-05-21 12:52 | ED.NECK ---
HPI - Neck Pain/Injury General Time Seen by Provider: 12:52 Date Seen: 05/21/23 Chief Complaint: Neck Injury/Pain Stated Complaint: Neck pain following hip replacement Time Seen by Provider: 05/21/23 12:52 Source: patient, RN notes reviewed and old records reviewed Mode of arrival: ambulatory Limitations: no limitations History of Present Illness HPI Narrative: Jennifer is a very pleasant 43-year-old female with a complicated past medical history including chronic neck pain, anxiety, history of alcohol abuse, depression, PTSD, bipolar disorder who comes to the emergency room with 2 complaints. First patient notes that she is having increasing neck pain. She notes being evaluated for this within the last couple weeks and a CT was done. She notes that she is feeling nauseated because of the pain in her neck and she has occasionally had pain going down both of her arms. She denies any weakness in her arms. She denies sore throat runny nose or recent illness. She does have a MRI scheduled for the upcoming week of her low back. She has not lost control of her bowel or bladder and her lower extremities are not weak. She is requesting pain medication as well as nausea medicine. Patient also complains of increasing redness on the dorsum of her right foot the past few days. She notes that she has felt warm but has not had a fever. She is worried about an infection. She does have a history of a blood clot in her right leg for which she is on Eliquis. She is supposed to be on that for 2 months. She cannot recall any specific injury to this area. She does however have multiple scratches from her cat on her arms. She notes that her cat scratches her frequently but again cannot recall any bites or scratching on her foot. She notes that her foot has been chronically swollen but is a little more swollen than normal. Patient denies history of addictions except for alcohol. Noted that she has been sober for 6 years. She talks daily with her sponsor who is in [place]. 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 Related Data Home Medications Medication Instructions Recorded Confirmed aripiprazole 10 mg tablet 10 mg PO DAILY 09/30/22 05/08/23 bupropion HCl 300 mg 24 hr tablet, 300 mg PO QAM 09/30/22 05/08/23 extended release buspirone 10 mg tablet 10 mg PO TID 09/30/22 05/08/23 cholecalciferol (vitamin D3) 1,250 1,250 mcg PO QWEEK 09/30/22 05/08/23 mcg (50,000 unit) oral wafer citalopram 10 mg tablet 20 mg PO DAILY 09/30/22 05/08/23 ferrous sulfate 325 mg (65 mg 325 mg PO DAILY 09/30/22 05/08/23 iron) tablet gabapentin 300 mg capsule 300 mg PO QID 09/30/22 05/08/23 lamotrigine 25 mg tablet 50 mg PO DAILY 09/30/22 05/08/23 mirtazapine 7.5 mg tablet 7.5 mg PO HS 09/30/22 05/08/23 naproxen 500 mg tablet,delayed 500 mg PO BID 09/30/22 05/08/23 release (EC-Naproxen) omeprazole 20 mg tablet,delayed 20 mg PO DAILY 09/30/22 05/08/23 release sennosides 8.6 mg-docusate sodium 2 tab-cap PO BID 09/30/22 05/08/23 50 mg tablet (Senexon-S) acetaminophen 500 mg tablet 1,000 mg PO Q6H PRN pain 10/06/22 05/08/23 methocarbamol 500 mg tablet 500 mg PO QID 10/06/22 05/08/23 epinephrine 0.3 mg/0.3 mL IM 01/15/23 05/08/23 injection, auto-injector baclofen 10 mg tablet 10 mg PO 3XD 05/11/23 05/11/23 Previous Rx's Medication Instructions Recorded valacyclovir 500 mg tablet 500 mg PO DAILY Antiviral #1 tab 10/13/22 diphenhydramine HCl 25 mg capsule 50 mg (2 x 25 mg) PO TID PRN #30 01/02/23 (Benadryl) caps hydrocortisone 2.5 % lotion 1 applic topical BID PRN #59 mL 01/03/23 epinephrine 0.3 mg/0.3 mL 0.3 ml IM Q5-15M PRN #2 ea 01/15/23 injection, auto-injector ondansetron 4 mg disintegrating 4 mg PO QID PRN nausea and 04/21/23 tablet vomiting #10 tabs prednisone 20 mg tablet 20 mg PO BID 3 days #6 tabs 12/01/23 apixaban 5 mg tablet (Eliquis) 5 mg PO BID #60 tabs 05/08/23 Allergies Allergy/AdvReac Type Severity Reaction Status Date / Time shellfish derived Allergy Severe Anaphylaxis Verified 05/11/23 18:49 cephalexin [From Keflex] Allergy Intermediate Rash Verified 05/11/23 18:49 Cephalosporins Allergy Intermediate Rash Verified 05/11/23 18:49 Penicillins Allergy Intermediate Rash Verified 05/11/23 18:49 Review of Systems Status of ROS: Reports: 10 or more systems reviewed and unremarkable except as noted in History and below Const: Reports: fatigue; Denies: fever (But has felt warm) or chills Eyes: Denies: change in vision or blurry vision ENMT: Reports: neck pain; Denies: throat pain, throat swelling or difficulty swallowing Cardio: Denies: chest pain or shortness of breath with exertion Resp: Denies: shortness of breath or cough GI: Reports: nausea; Denies: abdominal pain, vomiting, diarrhea or difficulty swallowing : Denies: painful urination Musculo: Reports: back pain (Chronic) and neck pain Integ/Breast: Reports: redness and skin tenderness; Denies: rash Neuro: Reports: headache Endo: Reports: fatigue Allergy/Immuno: Denies: throat swelling PFSH PFSH Medical History History of substance abuse ?F19.11 - Other psychoactive substance abuse, in remission (ICD-10) History of alcohol abuse ?F10.11 - Alcohol abuse, in remission (ICD-10) Femoral neck fracture ?S72.009A - Fracture of unspecified part of neck of unspecified femur, initial encounter for closed fracture (ICD-10) Cubital tunnel syndrome, bilateral ?G56.23 - Lesion of ulnar nerve, bilateral upper limbs (ICD-10) Obesity ?E66.9 - Obesity, unspecified (ICD-10) Substance use disorder ?F19.90 - Other psychoactive substance use, unspecified, uncomplicated (ICD-10) Back problem ?M53.9 - Dorsopathy, unspecified (ICD-10) Anxiety ?F41.9 - Anxiety disorder, unspecified (ICD-10) Depression ?F32.A - Depression, unspecified (ICD-10) Asthma ?J45.909 - Unspecified asthma, uncomplicated (ICD-10) Surgical History Status post total hip replacement, 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) ?Z96.642 - Presence of left artificial hip joint (ICD-10) Status post laparoscopic cholecystectomy (09/13/19) ?Z90.49 - Acquired absence of other specified parts of digestive tract (ICD-10) History of varicose vein ligation ?Z98.890 - Other specified postprocedural states (ICD-10) ?Z86.79 - Personal history of other diseases of the circulatory system (ICD-10) Hx of hammer toe correction (10/22/03) ?Z98.890 - Other specified postprocedural states (ICD-10) ?Z87.39 - Personal history of other diseases of the musculoskeletal system and connective tissue (ICD-10) Family History Father Leukemia Social History Narrative: single, 2 kids, nonsmoker, no EtOH Highest level of school completed/degree received: Associate degree: occupational, technical, vocational program Smoking Status: Former smoker Do you use any of these nicotine containing products: None Second hand tobacco smoke exposure: No How often do you have a drink containing alcohol: never How often do you have six or more drinks on one occasion: Never AUDIT-C Alcohol total score: 0 Non-prescribed substance use: denies use Caffeine: Yes service: No Exam Narrative: Exam Narrative: Jennifer is alert and oriented. Patient is somewhat guarded in her movement. Her head is atraumatic normocephalic. She has somewhat of a hypersensitivity palpation response to palpation of the neck and upper back that is distractible. Her neck is supple without significant spasm. EOM is full and pupils equal round reactive. Eyebrow raise smile symmetrical. Tongue is midline. Neck is supple without lymphadenopathy. With distraction she is showing me rotation flexion extension without difficulty. Heart with regular rate and rhythm and lungs are clear bilaterally. Abdomen is soft and nontender. Lower extremities show no calf tenderness. Bilateral 1+ pedal edema. On the right foot however she has area of erythema extending from the process proximal aspect of the 2nd 3rd and to a lesser extent the 4th toes on to the dorsum of the foot. This edema is slightly increased verses left. She has really no palpable tenderness here. It is warm to the touch. Const: Vital Signs, click to edit/add: Vital Signs - 24 hr 05/21/23 11:30 Temperature 97.9 F Pulse Rate [Pulse Oximeter] 79 Respiratory Rate 20 Blood Pressure [Ri ght Upper Arm] 136/86 Pulse Oximetry 99 Oxygen Delivery Me thod Room Air Documenting provider has reviewed patient's vital signs: yes Course Course ED Course: Given patient's exam and reported history of neck pain for the last 6 months I do not feel that we are in a situation where we should use any narcotics but do offer a 1 time dose of Toradol through the IV along with fluids and Zofran for the nausea. Differential diagnosis of the neck pain includes muscle spasm, anxiety, meningitis, spinal fracture, nerve impingement. Because of lower extremity symptoms that do suggest cellulitis would obtain CBC, basic panel and CRP. Will give 1st dose of antibiotic which had initially been Ancef plan but patient has a history of allergy to cephalosporins and therefore will use doxycycline 100 mg p.o. Reevaluation(s) Reevaluation #1: Patient is much improved after Toradol Zofran and saline. She is moving without difficulty. Vital Signs Vital signs: Initial Vital Signs Temperature 97.9 F 05/21/23 11:30 Temperature Source Temporal Artery Scan 05/21/23 11:30 Pulse Rate 79 05/21/23 11:30 Respiratory Rate 20 05/21/23 11:30 Blood Pressure 136/86 05/21/23 11:30 Blood Pressure Mean 102 05/21/23 11:30 Pulse Oximetry 99 05/21/23 11:30 Oxygen Delivery Method Room Air 05/21/23 11:30 Vital Signs Temperature 97.9 F 05/21/23 11:30 Pulse Rate 79 05/21/23 11:30 Respiratory Rate 20 05/21/23 11:30 Blood Pressure 136/86 05/21/23 11:30 Pulse Oximetry 99 05/21/23 11:30 Oxygen Delivery Method Room Air 05/21/23 11:30 Temperature 97.9 F 05/21/23 11:30 Pulse Rate 79 05/21/23 11:30 Respiratory Rate 20 05/21/23 11:30 Blood Pressure 136/86 05/21/23 11:30 Pulse Oximetry 99 05/21/23 11:30 Oxygen Delivery Method Room Air 05/21/23 11:30 Medications Administered Medications: Discontinued Medications Generic Name Dose Route Start Last Admin Trade Name Dwight PRN Reason Stop Dose Admin Doxycycline Hyclate 100 mg 05/21/23 13:31 05/21/23 14:40 Doxycycline Hyclate 100 Mg PO 05/21/23 13:32 100 mg ONCE ONE Administration Sodium Chloride 500 mls @ 500 mls/hr 05/21/23 13:31 05/21/23 14:45 0.9 % Sodium Chloride 500 Ml IV 05/21/23 14:30 500 mls/hr .Q1H ONE Administration Ketorolac Tromethamine 15 mg 05/21/23 13:31 05/21/23 14:45 Ketorolac 15 Mg/Ml Inj IVP 05/21/23 13:32 15 mg ONCE ONE Administration Ondansetron HCl 4 mg 05/21/23 13:31 05/21/23 14:45 Ondansetron 2 Mg/Ml Inj IVP 05/21/23 13:32 4 mg ONCE ONE Administration MDM - Neck Pain/Injury MDM Narrative Medical decision making narrative: 1. Cervical spine pain-this appears to be chronic in nature. Recent CTs did show spinal stenosis but no other acute findings. In the absence of trauma there does not appear to be possibility of fracture. Patient's exam is reassuring with no evidence of increasing spinal stenosis and patient is afebrile, distractible and I do not think that this is meningitis based on patient history and exam. Patient has a normal exam today with no evidence of hyper reflexia. Upper and lower body extremity strength is intact. Again, no hyperreflexia of the lower extremities. Would recommend follow-up MRI with her primary physician. No contrast would need to be used for this particular complaints. Patient may use Tylenol as needed for discomfort. Note that patient has history of addictions. She had previously received narcotics because of the pain but I did tell her I do not feel comfortable prescribing that as this appears to be a chronic problem. She was receptive to that and agreed to 1 time dose of Toradol. She does understand that she would not be able to take Toradol chronically at home as she is on Eliquis. 2. Cellulitis-for continued is doxycycline 100 mg p.o. b.i.d.. Return to the ER for worsening symptoms. White count within normal limits. CRP elevated at 2.0. 3. History of superficial thrombophlebitis right leg-of this involved greater saphenous was very close to the common from oral and thus she was put on Eliquis. 4. Disposition-home at this time. Patient states that she has a ride coming shortly and that she is feeling better. She does request nausea medication and thus will give her Zofran 4 mg, 1/2 tab p.o. q.8 hours p.r.n. nausea. I did state that I suspect her nausea would improve as we will be treating her cellulitis. She is to return for worsening symptoms. Suggest no narcotics for this particular patient. Please see Dr. Latif previous note. Medical Records Attestation: I reviewed the patient's medical records. Lab Data Attestation: I reviewed the patient's lab results. Labs: Lab Results 05/21/23 Range/Units 14:10 WBC 10.87 (4.50-11.00) K/uL RBC 3.94 L (4.00-5.20) m/uL Hgb 10.9 L (12.0-16.0) gm/dL Hct 34.0 (33.0-51.0) % MCV 86 (80-100) fL MCH 28 (26-34) pg MCHC 32 (32-36) gm/dL RDW Coeff of Afshin 13.6 (11.5-15.5) % Plt Count 535 H (140-440) K/uL Neut % (Auto) 65.0 (42.0-72.0) % Lymph % (Auto) 25.4 (20-44) % [place] % (Auto) 5.2 (0.0-11.0) % Eos % (Auto) 3.4 (0.0-7.0) % Baso % (Auto) 0.5 (0.0-3.0) % Neut # (Auto) 7.08 H (1.7-7.0) K/uL Lymph # (Auto) 2.76 (0.90-2.90) K/uL [place] # (Auto) 0.60 (0.00-0.90) K/UL Eos # (Auto) 0.37 (0.00-0.50) K/uL Baso # (Auto) 0.05 (0.00-0.30) K/uL Abs Immat Gran (auto) 0.05 (0.00-0.30) K/uL Imm/Tot Granulo (auto) 0.5 % Sodium 139 (135-149) mmol/L Potassium 3.6 (3.6-5.1) mmol/L Chloride 105 (96-114) mmol/L Carbon Dioxide 24 (20-32) mmol/L Anion Gap 10 (7-15) mEq/L BUN 7 (5-24) mg/dL Creatinine 0.6 (0.5-1.5) mg/dL Estimated Creat Clear 135.13 Estimated GFR 114 ml/min Glucose 98 (60-115) mg/dL Calcium 9.2 (8.4-10.6) mg/dL C-Reactive Protein 2.0 H (0.5-1.0) mg/dL Discharge Plan Discharge Clinical Impression: Chronic neck pain Cellulitis Qualifiers: Site of cellulitis: extremity Site of cellulitis of extremity: lower extremity Laterality: right Qualified Code(s): L03.115 - Cellulitis of right lower limb Patient Disposition: Home, Self-Care Condition: Improved Instructions: Cellulitis (ED) Additional Instructions: Continue doxycycline for treatment of your cellulitis in your right foot. Recommend next dose tonight before bedtime. Zofran may be used sparingly for nausea. Follow-up with your primary MD for a recheck. I would also suggest to your clinic physician that you have an MRI of your neck. This could be done without contrast. Tylenol as needed for neck discomfort. Return as needed for worsening symptoms. Prescriptions: No Action lamotrigine 25 mg tablet 50 mg PO DAILY citalopram 10 mg tablet 20 mg PO DAILY bupropion HCl 300 mg tablet extended release 24 hr 300 mg PO QAM ferrous sulfate 325 mg (65 mg iron) tablet 325 mg PO DAILY cholecalciferol (vitamin D3) 1,250 mcg (50,000 unit) wafer 1,250 mcg PO QWEEK omeprazole 20 mg tablet,delayed release (DR/EC) 20 mg PO DAILY aripiprazole 10 mg tablet 10 mg PO DAILY mirtazapine 7.5 mg tablet 7.5 mg PO HS sennosides-docusate sodium [Senexon-S] 8.6-50 mg tablet 2 tab-cap PO BID naproxen [EC-Naproxen] 500 mg tablet,delayed release (DR/EC) 500 mg PO BID Hold Instructions: Resume on 11/07/22. Resume once you are no longer taking Tordol or aspirin buspirone 10 mg tablet 10 mg PO TID gabapentin 300 mg capsule 300 mg PO QID acetaminophen 500 mg tablet 1,000 mg PO Q6H PRN (Reason: pain) methocarbamol 500 mg tablet 500 mg PO QID diphenhydramine HCl [Benadryl] 25 mg capsule 50 mg PO TID PRNQty: 30 0RF hydrocortisone 2.5 % lotion 1 applic topical BID PRNQty: 59 0RF epinephrine 0.3 mg/0.3 mL auto-injector IM epinephrine 0.3 mg/0.3 mL auto-injector 0.3 ml IM Q5-15M PRNQty: 2 0RF Rx Instructions: do not exceed 3 doses per episode baclofen 10 mg tablet 10 mg PO 3XD prednisone 20 mg tablet 20 mg PO BID 3 Days Qty: 6 0RF ondansetron 4 mg tablet,disintegrating 4 mg PO QID PRN (Reason: nausea and vomiting) Qty: 10 0RF Eliquis 5 mg tablet 5 mg PO BID Qty: 60 2RF valacyclovir 500 mg tablet 500 mg PO DAILY Qty: 1 0RF Follow Up/Referrals: Kika Johnston PA-C [Primary Care Provider] - Stand Alone Forms: [employer] Info Instructions
[2023-05-21 14:22] LABS: Basophils Absolute Auto 0.05 K/uL (0.00-0.30); Basophils Percent Auto 0.5 % (0.0-3.0); Eosinophils Absolute Auto 0.37 K/uL (0.00-0.50); Eosinophils Percent Auto 3.4 % (0.0-7.0); Hemoglobin* 10.9 gm/dL (12.0-16.0); Immature Granulocytes Abs Auto 0.05 K/uL (0.00-0.30); Immature Granulocytes Pct Auto 0.5 %; Lymphocytes Absolute Auto 2.76 K/uL (0.90-2.90); Lymphocytes Percent Auto 25.4 % (20-44); Mean Corpuscular HGB Conc 32 gm/dL (32-36); Mean Corpuscular Hemoglobin 28 pg (26-34); Mean Corpuscular Volume 86 fL (80-100); Monocytes Percent Auto 5.2 % (0.0-11.0); Neutrophils Absolute Auto 7.08 K/uL (1.7-7.0); Platelet Count* 535 K/uL (140-440); RDW Coefficient of Variation % 13.6 % (11.5-15.5); Red Blood Count 3.94 m/uL (4.00-5.20); White Blood Count* 10.87 K/uL (4.50-11.00)
[2023-05-21 14:27] LABS: Slide Review Reflex No
[2023-05-21 14:34] LABS: Chloride* 105 mmol/L (96-114); Potassium* 3.6 mmol/L (3.6-5.1); Sodium* 139 mmol/L (135-149)
[2023-05-21 14:37] LABS: Creatinine* 0.6 mg/dL (0.5-1.5); Est. Creatinine Clearance* 135.13; Estimated Glomerular Filt Rate 114 ml/min
[2023-05-21 14:38] LABS: Anion Gap 10 mEq/L (7-15); Blood Urea Nitrogen* 7 mg/dL (5-24); Calcium* 9.2 mg/dL (8.4-10.6); Carbon Dioxide* 24 mmol/L (20-32); Glucose* 98 mg/dL (60-115)
[2023-05-21] MEDS: DOXYCYCLINE HYCLATE 100 MG PO (14:40)
[2023-05-21] MEDS: KETOROLAC 15 MG/ML inj IVP (14:45)
[2023-05-21] MEDS: 0.9 % SODIUM CHLORIDE 500 ML 500 ML IV (14:45)
[2023-05-21] MEDS: ONDANSETRON 2 MG/ML inj 4 MG IVP (14:45)
--- NOTE | 2023-05-21 16:00 | ED.NURSE ---
Patient went to registration to say she did not have the money needed and wanted RX sent to a pharmacy. Called [facility] to have rx's printed however patient had already left ED. Voicemail was left informing patient that prescriptions would be available for her to [employer] [employer].
== END 2023-05-21 15:42 | disposition home or self-care (01) ==
PROVIDERS: Emergency Provider Family Medicine; PCP Physician Assistant Medical
DX: M54.2 Cervicalgia (principal); L03.115 Cellulitis of right lower limb
CPT/HCPCS: 36415; 80048; 85025; 86140; 96374; 96375; 99284; A9270; J1885; J2405; J7120

== ENCOUNTER 2023-05-22 05:52 | Outpatient (CLI) | payer MEDICARE, OTHER, SELFPAY | END 2023-05-22 05:53 | disposition home or self-care (01) | LOC: AMB 05-28 05:39 | PROVIDERS: PCP Physician Assistant Medical; Visit Provider Family Medicine | DX: M54.2 Cervicalgia (principal); R11.2 Nausea with vomiting, unspecified | CPT/HCPCS: A0425; A0427 ==

== ENCOUNTER 2023-05-22 06:03 | Emergency (ER) | payer MEDICARE, OTHER, SELFPAY ==
[2023-05-22 06:10] VITALS: BP 161/92; PULSE 82; RESP 16; TEMP 36.3; O2SAT 96; BMI 40.3
--- NOTE | 2023-05-22 06:17 | ED_ITS ---
HPI - General Adult General Chief complaint: Neck Injury/Pain Stated complaint: neck pain, nausea Time Seen by Provider: 05/22/23 06:17 History of Present Illness HPI narrative: patient reports severe nausea, neck pain and headache rated 7/10. given PO zofran by EMS. hx of spinal stenosis. 43-year-old woman returning to the emergency department with complaint of nausea and neck pain. Was seen little over 12 hours ago and diagnosed with cellulitis on the right foot. Given prescriptions for Zofran and doxycycline. Has received Zofran from EMS. Has been having recurrent bouts of nausea and vomiting. Does have chronic neck pain. I understand that she has received a course of steroids recently; this does not sound familiar to her. Denies radiating symptoms into her arms though acknowledges that she is rather shaky. Takes baclofen. Question of this neck pain contributing to nausea. She does initially report taking Zofran but on further clarification and evidence of the unfilled prescriptions here in the emergency department she has not actually started Zofran or her doxycycline. Sounds as though there is some unspecified [id number] antiemetic she has tried. No fever. May have felt chilled. She has also had some loose to diarrheal stools now. Abdomen feels a little bloated. Related Data Home Medications Medication Instructions Recorded Confirmed aripiprazole 10 mg tablet 10 mg PO DAILY 09/30/22 05/08/23 bupropion HCl 300 mg 24 hr tablet, 300 mg PO QAM 09/30/22 05/08/23 extended release buspirone 10 mg tablet 10 mg PO TID 09/30/22 05/08/23 cholecalciferol (vitamin D3) 1,250 1,250 mcg PO QWEEK 09/30/22 05/08/23 mcg (50,000 unit) oral wafer citalopram 10 mg tablet 20 mg PO DAILY 09/30/22 05/08/23 ferrous sulfate 325 mg (65 mg 325 mg PO DAILY 09/30/22 05/08/23 iron) tablet gabapentin 300 mg capsule 300 mg PO QID 09/30/22 05/08/23 lamotrigine 25 mg tablet 50 mg PO DAILY 09/30/22 05/08/23 mirtazapine 7.5 mg tablet 7.5 mg PO HS 09/30/22 05/08/23 naproxen 500 mg tablet,delayed 500 mg PO BID 09/30/22 05/08/23 release (EC-Naproxen) omeprazole 20 mg tablet,delayed 20 mg PO DAILY 09/30/22 05/08/23 release sennosides 8.6 mg-docusate sodium 2 tab-cap PO BID 09/30/22 05/08/23 50 mg tablet (Senexon-S) acetaminophen 500 mg tablet 1,000 mg PO Q6H PRN pain 10/06/22 05/08/23 methocarbamol 500 mg tablet 500 mg PO QID 10/06/22 05/08/23 epinephrine 0.3 mg/0.3 mL IM 01/15/23 05/08/23 injection, auto-injector baclofen 10 mg tablet 10 mg PO 3XD 05/11/23 05/11/23 Previous Rx's Medication Instructions Recorded valacyclovir 500 mg tablet 500 mg PO DAILY Antiviral #1 tab 10/13/22 diphenhydramine HCl 25 mg capsule 50 mg (2 x 25 mg) PO TID PRN #30 01/02/23 (Benadryl) caps hydrocortisone 2.5 % lotion 1 applic topical BID PRN #59 mL 01/03/23 epinephrine 0.3 mg/0.3 mL 0.3 ml IM Q5-15M PRN #2 ea 01/15/23 injection, auto-injector ondansetron 4 mg disintegrating 4 mg PO QID PRN nausea and 04/21/23 tablet vomiting #10 tabs prednisone 20 mg tablet 20 mg PO BID 3 days #6 tabs 04/21/23 apixaban 5 mg tablet (Eliquis) 5 mg PO BID #60 tabs 05/08/23 prednisone 20 mg tablet 40 mg (2 x 20 mg) PO DAILY 5 days 05/22/23 #10 tabs Allergies Allergy/AdvReac Type Severity Reaction Status Date / Time shellfish derived Allergy Severe Anaphylaxis Verified 05/11/23 18:49 cephalexin [From Keflex] Allergy Intermediate Rash Verified 05/11/23 18:49 Cephalosporins Allergy Intermediate Rash Verified 05/11/23 18:49 Penicillins Allergy Intermediate Rash Verified 05/11/23 18:49 Review of Systems Status of ROS: Reports: 6 or more systems reviewed and unremarkable except as noted in History and below [facility] Medical History History of substance abuse ?F19.11 - Other psychoactive substance abuse, in remission (ICD-10) History of alcohol abuse ?F10.11 - Alcohol abuse, in remission (ICD-10) Femoral neck fracture ?S72.009A - Fracture of unspecified part of neck of unspecified femur, initial encounter for closed fracture (ICD-10) Cubital tunnel syndrome, bilateral ?G56.23 - Lesion of ulnar nerve, bilateral upper limbs (ICD-10) Obesity ?E66.9 - Obesity, unspecified (ICD-10) Substance use disorder ?F19.90 - Other psychoactive substance use, unspecified, uncomplicated (ICD- 10) Back problem ?M53.9 - Dorsopathy, unspecified (ICD-10) Anxiety ?F41.9 - Anxiety disorder, unspecified (ICD-10) Depression ?F32.A - Depression, unspecified (ICD-10) Asthma ?J45.909 - Unspecified asthma, uncomplicated (ICD-10) Surgical History Status post total hip replacement, 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) ?Z96.642 - Presence of left artificial hip joint (ICD-10) Status post laparoscopic cholecystectomy (09/13/19) ?Z90.49 - Acquired absence of other specified parts of digestive tract (ICD- 10) History of varicose vein ligation ?Z98.890 - Other specified postprocedural states (ICD-10) ?Z86.79 - Personal history of other diseases of the circulatory system (ICD- 10) Hx of hammer toe correction (10/22/03) ?Z98.890 - Other specified postprocedural states (ICD-10) ?Z87.39 - Personal history of other diseases of the musculoskeletal system and connective tissue (ICD-10) Family History Father Leukemia Social History Narrative: single, 2 kids, nonsmoker, no EtOH Highest level of school completed/degree received: Associate degree: occupational, technical, vocational program Smoking Status: Former smoker Do you use any of these nicotine containing products: None Second hand tobacco smoke exposure: No How often do you have a drink containing alcohol: never How often do you have six or more drinks on one occasion: Never AUDIT-C Alcohol total score: 0 Non-prescribed substance use: denies use Caffeine: Yes service: No Exam Narrative: Exam Narrative: Pleasant. Seems uncomfortable. Generally little tremulous. Cranial nerves 2- 12 intact. Flatter affect. Eyes are watering little bit with normal sclera; not injected. Breathing easily. Lungs appear to be clear. Heart in regular rate and rhythm. Abdomen is full soft and generally only mildly uncomfortable. Has good strength in extremities. There is mild edema over the dorsum of the feet. Right foot is just pink at far dorsal aspect. No induration of the skin. No particular calor at this point. Otherwise reported cat scratches on forearms hands without inflammatory surrounding changes. Trapezius paracervical musculature is tense. A little tender but she is not demonstrating a great deal in pain. Oropharynx is moist. No stridor. Little erythematous from a cough drop apparently. Const: Vital Signs, click to edit/add: Vital Signs - 24 hr 05/22/23 06:10 05/22/23 07:09 Temperature 97.3 F L Pulse Rate [Pulse Oximeter] 82 Respiratory Rate 16 Blood Pressure [Ri ght Forearm] 161/92 H Pulse Oximetry 96 96 Oxygen Delivery Me thod Room Air Room Air Documenting provider has reviewed patient's vital signs: yes Course Vital Signs Vital signs: Initial Vital Signs Temperature 97.3 F L 05/22/23 06:10 Temperature Source Temporal Artery Scan 05/22/23 06:10 Pulse Rate 82 05/22/23 06:10 Respiratory Rate 16 05/22/23 06:10 Blood Pressure 161/92 H 05/22/23 06:10 Blood Pressure Mean 115 H 05/22/23 06:10 Blood Pressure Position Supine 05/22/23 06:10 Pulse Oximetry 96 05/22/23 06:10 Oxygen Delivery Method Room Air 05/22/23 06:10 Vital Signs Temperature 97.3 F L 05/22/23 06:10 Pulse Rate 82 05/22/23 06:10 Respiratory Rate 16 05/22/23 06:10 Blood Pressure 161/92 H 05/22/23 06:10 Pulse Oximetry 96 05/22/23 06:10 Oxygen Delivery Method Room Air 05/22/23 06:10 Temperature 97.3 F L 05/22/23 06:10 Pulse Rate 82 05/22/23 06:10 Respiratory Rate 16 05/22/23 06:10 Blood Pressure 161/92 H 05/22/23 06:10 Pulse Oximetry 96 05/22/23 07:09 Oxygen Delivery Method Room Air 05/22/23 07:09 Medications Administered Medications: Discontinued Medications Generic Name Dose Route Start Last Admin Trade Name Dwight PRMeño Reason Stop Dose Admin Ketamine HCl 20 mg/ Sodium 100.2 mls @ 300.6 mls/hr 05/22/23 06:27 05/22/23 08:00 Chloride IVPB 05/22/23 06:28 Infused ONCE ONE Infusion Sodium Chloride 1,000 mls @ 1,000 mls/hr 05/22/23 06:28 05/22/23 07:33 0.9 % Sodium Chloride 1000 Ml IV 05/22/23 07:27 1,000 mls/hr .Q1H ONE Administration Medical Decision Making MDM Narrative Medical decision making narrative: I imagine vomiting could be making her neck pain worse to; somewhat cyclical. Reporting headache will treat that with some IV fluids. Pain dose ketamine I am hopeful will be helpful. Suspected cellulitis seems to have improved a great deal. Community prevalence would suggest that this is gastroenteritis. Further with the bowel symptoms I think that makes this more likely. History of anxiety could be contributing as well. Certainly neck pain could be a trigger point of sorts causing her nausea She would appreciate a soft collar for her neck as well. Mentioned that she had ordered a cervical collar of some sort. Will dispense soft collar here. Reassessing she clarifies that does have shooting pains down her arms. Is more limited in rotation of her neck to her left versus her right. Neck pain preceded the nausea when it flared a few weeks ago. Is wondering if perhaps some other imaging like MRI would be helpful. She feels she has only worsened since CT imaging was done last week. In the midst of ketamine infusion does admit that headache is markedly improved in her discomfort generally. We have also placed a soft collar to uncertain effect at this point. I wonder if there is some facet issue that is causing this irritation though this would not be consistent really with reportedly radicular symptoms into both arms. I do not appreciate unilateral weakness. I suspect that some of the symptoms for example the tremulousness which has faded since receiving medication, might be potentially medication effect or anxiety causing some somatic symptoms. I have asked our radiology department about availability of MRI; MRI might be available today but would not be for many hours. Perhaps chiropractor would be helpful. Might benefit from facet injection; perhaps seeing sports medicine/Dr. Mcnally. I think could trial another round of prednisone. Solu-Medrol here in the emergency department. Is complaining of some nausea again. She did receive Zofran from EMS. Will dose with a 1 time oral dosing of 1 mg of lorazepam. This might help with some muscle relaxation as well. She would be disinclined to wait so long for an MRI. Does have a pending MRI of the lumbar spine and has asked her primary to also do her neck. Does have appointment with Dr. Mcnally near the end of this month I believe the . In the meantime will continue with prednisone. Reports feeling better. See patient discharge plan Medical Records Medical records reviewed: Yes I reviewed the patient's medical records Discharge Plan Discharge Clinical Impression: Neck arthralgia, Nausea Patient Disposition: Home w/ Parent or Adult Condition: Improved Additional Instructions: Focus on hydration. Can wear the soft collar for comfort over this next week. You mentioned that you do have a chiropractor; I would make an appointment with them as I suspect you would be able to get in with them sooner than other locations. Otherwise of course follow-up with Dr. Mcnally as scheduled. Fill prescriptions at least for Zofran and prednisone. Prescriptions: New prednisone 20 mg tablet 40 mg PO DAILY 5 Days Qty: 10 1RF No Action lamotrigine 25 mg tablet 50 mg PO DAILY citalopram 10 mg tablet 20 mg PO DAILY bupropion HCl 300 mg tablet extended release 24 hr 300 mg PO QAM ferrous sulfate 325 mg (65 mg iron) tablet 325 mg PO DAILY cholecalciferol (vitamin D3) 1,250 mcg (50,000 unit) wafer 1,250 mcg PO QWEEK omeprazole 20 mg tablet,delayed release (DR/EC) 20 mg PO DAILY aripiprazole 10 mg tablet 10 mg PO DAILY mirtazapine 7.5 mg tablet 7.5 mg PO HS sennosides-docusate sodium [Senexon-S] 8.6-50 mg tablet 2 tab-cap PO BID naproxen [EC-Naproxen] 500 mg tablet,delayed release (DR/EC) 500 mg PO BID Hold Instructions: Resume on 11/07/22. Resume once you are no longer taking Tordol or aspirin buspirone 10 mg tablet 10 mg PO TID gabapentin 300 mg capsule 300 mg PO QID acetaminophen 500 mg tablet 1,000 mg PO Q6H PRN (Reason: pain) methocarbamol 500 mg tablet 500 mg PO QID diphenhydramine HCl [Benadryl] 25 mg capsule 50 mg PO TID PRNQty: 30 0RF hydrocortisone 2.5 % lotion 1 applic topical BID PRNQty: 59 0RF epinephrine 0.3 mg/0.3 mL auto-injector IM epinephrine 0.3 mg/0.3 mL auto-injector 0.3 ml IM Q5-15M PRNQty: 2 0RF Rx Instructions: do not exceed 3 doses per episode baclofen 10 mg tablet 10 mg PO 3XD prednisone 20 mg tablet 20 mg PO BID 3 Days Qty: 6 0RF ondansetron 4 mg tablet,disintegrating 4 mg PO QID PRN (Reason: nausea and vomiting) Qty: 10 0RF Eliquis 5 mg tablet 5 mg PO BID Qty: 60 2RF valacyclovir 500 mg tablet 500 mg PO DAILY Qty: 1 0RF Follow Up/Referrals: Kika Johnston PA-C [Primary Care Provider] - Stand Alone [facility]
[2023-05-22 07:09] VITALS: O2SAT 96
[2023-05-22] MEDS: 0.9 % SODIUM CHLORIDE 1000 ml 1,000 ML IV (07:33)
[2023-05-22] MEDS: KETAMINE HCL 20 MG in 0.9 % SODIUM CHLORIDE 100 ml 100 ML 300.6 MG IVPB (07:33)
[2023-05-22] MEDS: METHYLPREDNISOLONE SOD SUCC 62.5 MG/ML (125) 80 MG IVP (08:26)
[2023-05-22] MEDS: LORazepam 1 MG TABLET PO (08:26)
== END 2023-05-22 09:26 | disposition home or self-care (01) ==
PROVIDERS: Emergency Provider Family Medicine; PCP Physician Assistant Medical
DX: M25.59 Pain in other specified joint (principal); M54.2 Cervicalgia
CPT/HCPCS: 96365; 96375; 99284; A9270; J2930; J3490; J7030

== ENCOUNTER 2023-06-10 23:16 | Outpatient (CLI) | payer MEDICARE, OTHER, SELFPAY ==
--- OUTSIDE RECORDS SUMMARY | 2023-06-13 09:37 | XMS_ITS | Encounter Summary ---
Author Name Unknown Organization [facility] Address [address] [place] [phone] Phone Care Team Providers Care Sales Service Rep Name Role Phone Unavailable Primary Care Provider Unavailabl e Reason for Visit * Reason Comments Follow-up Encounter Details Date Type Department Care Team Description 02/16/2023 3:15 PM CDT Office Visit [facility] [address] [place] [address] [phone] Shirley Tatum MD [address] [place] [address] [phone], Derm Resident [address] [place] [phone] Urticaria (Primary Dx) Discharge Disposition: Discharged to home or self care (routine discharge) Social History Tobacco Use Types Packs/Day Years Used Date Smoking Tobacco: Never Assessed Sex and Gender Information Value Date Recorded Sex Assigned at Not on file Gender Identity Not on file Sexual Orientation Not on file COVID-19 Exposure Response Date Recorded In the last 10 days, have yo u been in contact with someone who was confirmed or suspected to have Coronavirus/COVID-19? No / Unsure 02/16/2023 2:36 PM CDT documented as of this encounter Progress Notes * Jewel James MD - 02/16/2023 3:15 PM CDT [facility]: Hospital Follow up Jennifer Tellez 42 y.o. female [id number] Dermatology Problem List: # Acute urticaria - Onset 01/02/23 - Urticarial episodes were occasionally a/w joint pain, difficulty breathing. Per review 01/16/23, no new medications in the months leading up to onset of rash. - Tx: pred taper (40mg x7d, 20mg x7d, 10mg x7d, started 01/16/23); cetirizine 20mg BID, famotidine 20mg daily, hydroxyzine 50mg TID (for anxiety). EpiPen. - Diagnostics (from 01/07-01/09 admission): CRP mildly elevated at 17.47; ESR mildly elevated at 25. BMP, LFTs, FELIZ, ANCAs, RF, C3, C4. Micro studies negative (HIV, Hep B and C, lyme serologies, RPR, ASO sukumar). TSH wnl in 10/2022. - Future: consider checking anti-IgE, H pylori stool antigen, dental exam to r/o smoldering dental abscess. Consider allergy referral (hx of anaphylaxis to shellfish and she wonders if current urticarial eruption may be related to shampoo/conditioner). # Hx anaphylaxis to shellfish Medical Decision Making: # Acute urticaria, resolved - Overall, we favor that this is a presentation of acute urticaria. We did consider serum sickness like reaction given the morphology of rash, concomitant joint pain, and mildly elevated inflammatorymarkers, though on thorough review of medications there were no clear culprits and no new medications. Duration of lesions (only present a few hours) and generally reassuring labs (below) were not consistent with urticarial vasculitis. She did report that she occasionally feels short of breath during these episodes, with some benefit with albuterol, and had a history of anaphylaxis to shellfish. Notes from initial ED visit 01/04 noted normal vitals, no wheezing, no SOB, though did receive EpiPenprior to arrival. She does have EpiPen at home. - Labs: CRP mildly elevated at 17.47; ESR mildly elevated at 25. BMP, LFTs, FELIZ, ANCAs, RF, C3, C4.Micro studies negative (HIV, Hep B and C, lyme serologies, RPR, ASO sukumar). TSH wnl 10/2022. - Resolved by follow-up on 02/16. No recurrence since last visit in December. This may be due to discontinuation of steroid or due to treatment with prednisone taper, cetirizine, and famotidine. - Completed prednisone taper, now off prednisone. Plan to stay off prednisone given resolution of symptoms - Continue cetirizine to 20mg BID - Continue famotidine 20mg daily - Self taper cetirizine and famotidine - Continue hydroxyzine (using 50mg TID for anxiety). - Has EpiPen on hand. - Given resolution, recommend self taper of cetirizine and famotidine. Stay off prednisone. Keep epipen handy. Follow-up prn Follow-up: prn History of Present Illness: Ms. Jennifer Tellez is a(n) 42 y.o. female who presents today for follow-up of urticaria. She denies any symptoms today, itching has completely resolved. Joint pain resolved. No rash present. Breathing difficulties resolved. Has been symptom free for a month now. Previously, notes that she would use a shampoo, then she would have a reaction, then it would resolve, then recur when she used it again. Patient is otherwise feeling well, without additional concerns. Physical Exam: Exam of face, chest, arms, notable for: - No rash present Staff: Deepti Discussed the interpretation of exam and laboratory data, assessment, and treatment plan with the medical team and staff. Jewel James MD, 02/16/2023 3:39 PM Transition Year Resident, PGY-1 Faculty Note: I saw and evaluated the patient today with the resident, and agree with the resident's findings andplan of care as documented in the resident's note. I was present for oliva portion of any procedures performed. Shirley Tatum MD/MPH Staff Integration Architect documented in this encounter Plan of Treatment Not on file documented as of this encounter Visit Diagnoses Diagnosis Urticaria- Primary Urticaria, unspecified documented in this encounter
--- OUTSIDE RECORDS SUMMARY | 2023-06-13 09:37 | XMS_ITS | Encounter Summary ---
Author Name Unknown Organization [facility] Address [address] [place] [phone] Phone Care Team Providers Care Regional Sales Associate Name Role Phone Unavailable Primary Care Provider Unavailabl e Encounter Details Date Type Department Care Team Description 02/16/2023 Travel Social History Tobacco Use Types Packs/Day [...] PM CDT documented as of this encounter Plan of Treatment Not on file documented as of this encounter Visit Diagnoses Not on filedocumented in this encounter
--- OUTSIDE RECORDS SUMMARY | 2023-06-13 09:37 | XMS_ITS | Encounter Summary ---
Author Name Unknown Organization [facility] Address [address] [place] [address] Phone Care Team Providers Care Chemistry Laboratory Technician Name Role Phone Unavailable Primary Care Provider Unavailabl e Encounter Details Date Type Department Care Team Description 01/16/2023 Travel Social History Tobacco Use Types Packs/Day [...] suspected to have Coronavirus/COVID-19? No / Unsure 01/16/2023 2:13 PM CDT documented as of this encounter Plan of Treatment Not on file documented as of this encounter Visit Diagnoses Not on filedocumented in this encounter
--- OUTSIDE RECORDS SUMMARY | 2023-06-13 09:37 | XMS_ITS | Clinical Summary ---
Author Name Unknown Organization [facility] Address [address] [place] [id number] Phone Care Team Providers Care Freight Brakeman Name Role Phone Unavailable Primary Care Provider Unavailabl e Source Comments [employer] is fully rolled out on [facility]. Last update 10/24/08.[facility] Allergies Active Allergy Reactions Criticality Noted Date Comments Cephalexin Rash 01/04/2023 Penicillins Rash 01/04/2023 Medications * Be aware that medications may not be up to date as of this document. Always verify current medications with patient. Medication Sig Dispensed Refills Start Date End Date Status ARIPiprazole (ABILIFY) 10 mg oral tablet Take 1 tablet (10 mg) by mouth daily. 0 12/29/2022 Active buPROPion (WELLBUTRIN XL) 300 mg oral tablet 24 HR Take 1 tablet (300 mg) by mouth daily. 0 12/29/2022 Active busPIRone (BUSPAR) 10 mg oral tablet Take 1 tablet (10 mg) by mouth 3 times daily. 0 12/29/2022 Active citalopram (CELEXA) 20 mg oral tablet Take 1 tablet (20 mg) by mouth daily. 0 12/29/2022 Active lamoTRIgine (LAMICTAL) 25 mg oral TABS Take 2 tablets (50 mg) by mouth daily. 0 12/29/2022 Active hydrocortisone 2.5% externally ointment Apply thin layer to hives as needed twice a day 20 g 1 01/05/2023 Active EPINEPHrine (EPIPEN / AUVI-Q) 0.3 mg/0.3 mL injectionIndicati ons:Anaphylaxis Inject 0.3 mL (0.3 mg) into a muscle one time as needed for Allergic Reaction(s). 2 Pen 11 01/05/2023 Active methocarbamol (ROBAXIN-500) 500 mg oral TABS Take 1 tablet (500 mg) by mouth 4 times daily as needed (back pain). 0 Active GABApentin (NEURONTIN) 300 mg oral capsule Take 1 capsule (300 mg) by mouth twice daily. 0 Active mirtazapine (REMERON) 7.5 mg oral TABS Take 1 tablet (7.5 mg) by mouth daily. 0 Active naltrexone (REVIA) 50 mg oral TABS Take 1 tablet (50 mg) by mouth daily. 0 Active omeprazole (PRILOSEC) 20 mg oral capsule Take 1 capsule (20 mg) by mouth daily. 0 Active valACYclovir (VALTREX) 500 mg oral TABS Take 1 tablet (500 mg) by mouth daily. 0 Active hydrOXYzine pamoate (VISTARIL) 25 mg oral capsule Take 2 capsules (50 mg) by mouth 3 times daily as needed (ANXIETY). 0 Active ferrous sulfate 325 mg oral TABS Take 1 tablet (325 mg) by mouth daily. 0 Active acetaminophen (TYLENOL) 500 mg oral tablet Take 1 tablet (500 mg) by mouth every 6 hours as needed. 0 Active CHOLEcalciferol (VITAMIN D3) 40483 UNITS oral capsule Take 1 capsule (50,000 UNITS) by mouth every week. 0 Active naproxen (NAPROSYN) 500 mg oral TABS Take 1 tablet (500 mg) by mouth daily as needed. 0 Active sennosides-docusa te sodium (STOOL SOFTENER/LAXATIVE ) 8.6-50 mg oral tablet Take 2 tablets by mouth twice daily. 0 Active diphenhydrAMINE (BENADRYL) 50 mg oral capsuleIndication s:Acute Urticaria,Anaphyl axis Take 1 capsule (50 mg) by mouth 4 times daily as needed for itching, allergic reaction(s) or allergy symptoms. 120 capsule 3 01/09/2023 Active famotidine (PEPCID) 20 mg oral tablet Take 1 tablet (20 mg) by mouth at bedtime. 30 tablet 3 01/09/2023 Active albuterol (VENTOLIN HFA;PROVENTIL HFA;PROAIR) 108 (90 BASE) mcg/act inhalation inhaler Inhale 1-2 puffs every 4 hours as needed for bronchospasm and/or wheezing. 8.5 g 3 01/09/2023 Active triamcinolone acetonide (KENALOG) 0.1 % externally ointment Apply onto the body and face twice a day. 80 g 1 01/09/2023 Active Active Problems Problem Noted Date Diagnosed Date Polyarthralgia 01/07/2023 Anaphylaxis, initial encounter 01/04/2023 Resolved Problems Problem Noted Date Diagnosed Date Resolved Date Rash 01/07/2023 02/18/2023 Social History Tobacco Use Types Packs/Day Years Used Date Smoking Tobacco: Never Assessed Sex and Gender Information Value Date Recorded Sex Assigned at Not on file Gender Identity Not on file Sexual Orientation Not on file Last Filed Vital Signs Vital Sign Reading Time Taken Comments Blood Pressure 128/73 01/09/2023 7:00 AM CDT Pulse 55 01/09/2023 7:00 AM CDT Temperature 36.8 ??C (98.2 ??F) 01/09/2023 7:00 AM CD T Respiratory Rate 20 01/09/2023 7:00 AM CDT Oxygen Saturation 98% 01/09/2023 10: 15 AM CDT Inhaled Oxygen Concentration - - Weight 130.2 kg (287 lb 0.6 oz) 01/07/2023 6:31 PM CDT Height 180.3 cm (5' 10.98) 01/07/2023 6:31 PM C DT Body Mass Index 40.05 01/07/2023 6:31 PM CDT Plan of Treatment Health Maintenance Due Date Last Done Comments Asthma Action Plan 1980 Asthma Control Test 1980 Dental Oral Exam 1980 Dental Prophylaxis 1980 Dental X-Ray: Bitewings 1980 Depression Management 1980 Pneumococcal Vaccine: Pediatrics (0 to 5 Years) and At-Risk Patients (6 to 64 Years) (1 of 2 - PCV) 1986 Periodontal Maintenance 1994 Medicare Annual Wellness 1998 PREVENTATIVE VISIT 1998 HEALTH MAINTENANCE PROTOCOL 1999 Cervical Cancer Screening Age 30-65 2010 COVID-19 Vaccine ( season) 2023 02/21/2022, 12/07/2021, 12/03/2020, Additional history exists Lipid Screening 01/26/2028 01/25/2023, 10/0 07/2021, 11/19/2021, Additional history exists TD/TDAP ADULTS 01/24/2029 01/24/2019, 03/23, 08/05/2005, Additional history exists Hepatitis B Vaccines Completed 05/10/2007, 11/30/2006, 09/07/2005 HIV Screening Completed 01/07/2023 INFLUENZA VACCINE Completed 02/13/2023, , 01/24/2019, Additional history exists HIB Aged Out No longer eligi ble based on patient's age to complete this topic RSV Immunoglobulin Aged Out No longer eligible based on patient's age to complete this topic Guarantor Name Account Type Relation to Patient Date of Phone Billing Address Jennifer Tellez Personal/Family Self 1980 [address] [place] [id number] Advance Directives For more information, please contact: [phone] Latest Code Status on File Code Status Date Activated Date Inactivated Comments Full Code 01/07/2023 6:11 PM 01/09/2023 6:20 PM Question Answer Comments Does the Patient have prefer ences regarding life sustaining measures (these options only apply when the patient has a pulse): No Discussed Code Status With Whom? Not discussed Code Status History Code Status Date Activated Date Inactivated Comments Full Code 01/04/2023 7:45 PM 01/05/2023 6:51 PM Question Answer Comments Does the Patient have prefer ences regarding life sustaining measures (these options only apply when the patient has a pulse): No Discussed Code Status With Whom? Patient
--- OUTSIDE RECORDS SUMMARY | 2023-06-13 09:37 | XMS_ITS | Encounter Summary ---
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 Name Role Phone Unavailable Primary Care Provider Unavailabl e Reason for Visit * Reason Comments Referral RashAnaphylaxis * Consult/Test/Treat (Routine) - Closed Specialty Diagnoses / Procedures Referred By Contac t Referred To Contact Dermatology / DERMATOLOGY Diagnoses Rash Anaphylaxis, initial encounter Sudhakar Koenig MD [address] [place] [id number] Referral ID Status Reason Start Date Expiration Date Visits Re quested Visits Authorized [id number] Closed 01/09/2023 01/10/2024 1 1 Encounter Details Date Type Department Care Team Description 01/16/2023 2:45 PM CDT Office Visit [facility] [address] [id number] Rosaura Bergeron MD [address] [place] [address] [id number] [phone], Derm Resident [address] [place] [phone] Urticaria (Primary Dx) Discharge Disposition: Discharged to [...] PM CDT documented as of this encounter Patient Instructions * Patient Instructions* Sujit Mccurdy MD - 01/16/2023 2:45 PM CDT For urticaria: - Take 40mg prednisone (4 pills) for one week, then 20mg (2 pills) for one week, then 10mg (1 pill)for one week, then stop. - Increase cetirizine to 20mg (2 pills) twice daily. - Continue famotidine 20mg nightly. - Follow-up with us in about four weeks. URTICARIA Urticaria Hives are also called urticaria; this is the medical term from hives. Hives are welts on the skin that often itch. These welts can appear on any part of the skin. Hives vary in size from as small as a pen tip to as large as a dinner plate. They may connect to form even larger welts. A hive often goes away in 24 hours or less. New hives may appear as old ones fade. A bout of hives usually lasts less than 6 weeks. These hives are called acute hives. If hives last more than 6 weeks, they are called chronic hives. An acute episode of hives often results from an allergy or virus, but there are many other causes. When large welts occur deeper under the skin, the medical term is angioedema. This can occur with hives, and often causes the eyelids or lips to swell. In severe cases, the throat and airway can swell, making breathing or swallowing difficult. IF THIS OCCURS, SEEK MEDICAL ATTENTION AT A LOCAL EMERGENCY ROOM. Causes Hives are common and anyone can get them. An allergic reaction can trigger hives. Common triggers include: foods (milk, eggs, peanuts, tree nuts and shellfish), medicines, insect bites and stings, animals, pollen, latex, etc. Other causes of hives include: infections, illnesses such as vasculitis, lupus and thyroid disease,exercise, stress, contact with chemicals and scratching the skin. Hives can happen within minutes of exposure to the trigger, or they can be delayed for several hours. Signs and Symptoms The most common signs (what you see) are, slightly raised, pink or red swellings of the skin. Weltsmay occur alone or in a group, or connect over a large area and skin swelling that subsides or goesaway within 24 hours at one spot but may appear at another spot. The most common symptoms (what you feel) are typically, itching but they may sometimes sting or hurt. Some people always get hives in the same spot or spots on their body. These people often have a trigger (what causes the hives). Every time they are exposed to that trigger, they get hives. Dermatologists may call this type of hives fixed, which means not moving. Fixed hives may happen when a person takes a certain medicine (fixed drug eruption) or gets too much sunlight (fixed solar urticaria). Diagnosis When a patient presents with hives on the skin, a wire weaver cloth can often make the diagnosis by looking at the skin. Finding the cause of hives, however, can sometimes be hard. This is especially true for hives that have been around for more than 6 weeks. To find out what is causing your hives; your wire weaver cloth will review your health history, ask questions, and do a physical exam. A skin biopsy, blood work and or allergy testing may be needed. Treatment For mild or moderate case of hives, the most common treatment is an antihistamine. Antihistamines relieve symptoms like itching. Not all hives require treatment. If you have chronic hives, your wire weaver cloth may prescribe an antihistamine. You should take this medicine every day to prevent hives from forming, unless directed otherwise by your wire weaver cloth. Some antihistamines make you drowsy, and some do not. No one antihistamine works for everyone. Your wire weaver cloth may combine an antihistamine with other medicines to control the hives. Your wire weaver cloth will work with you to formulate that best plan possible for treatment and prevention. If you have questions or concerns regarding a hives outbreak, please feel free to contact our clinic at [phone]. References: [email or web address] documented in this encounter Progress Notes * Sujit Mccurdy MD - 01/16/2023 2:45 PM CDT Images from the original note were not included. [email or web address] Dermatology Clinic: Hospital Follow up Jennifer Tellez 42 y.o. female [id number] Dermatology Problem List: # Acute urticaria - Onset 01/02/23 - Urticarial episodes are occasionally a/w joint pain, difficulty breathing. Per review 01/16/23, nonew medications in the months leading up to [...] to shellfish Medical Decision Making: # Acute urticaria - Overall, we favor that this is a presentation of acute urticaria. We did consider serum sickness like reaction given the morphology of rash, concomitant joint pain, and mildly elevated inflammatorymarkers, though on thorough review of medications there are no clear culprits and no new medications. Duration of lesions (only present a few hours) and generally reassuring labs (below) are not consistent with urticarial vasculitis. She does report that she occasionally feels short of breath during these episodes, with some benefit with albuterol, and has a history of anaphylaxis to shellfish. Notes from initial ED visit 01/04 noted normal vitals, no wheezing, no SOB, though did receive EpiPen prior to arrival. She does have EpiPen at home. - Labs: CRP mildly elevated at 17.47; ESR mildly elevated at 25. BMP, LFTs, FELIZ, ANCAs, RF, C3, C4.Micro studies negative (HIV, Hep B and C, lyme serologies, RPR, ASO sukumar). TSH wnl 10/2022. - For now, will extend prednisone taper to 40mg daily for one week, 20mg daily for one week, 10mg daily for one week, stop. Will start this taper today. - Increase cetirizine to 20mg BID. - Continue famotidine 20mg daily. - Continue hydroxyzine (using 50mg TID for anxiety). - Has EpiPen on hand. - At next visit, if still having symptoms consider work up for chronic urticaria Follow-up: 4 weeks. History of Present Illness: Ms. Jennifer Tellez is a(n) 42 y.o. female who presents today for hospital follow-up: - Hospitalized 01/07-01/09 with an urticarial rash, the differential for which consisted of urticariavs urticaria multiforme vs less likely urticarial vasculitis. Of note, additional symptoms includedpolyarthralgias. - Labs (as above in DPL) were generally unremarkable and she improved markedly with prednisone and oral antihistamines (cetirizine 10mg BID, famotidine 20mg daily, in addition to hydroxyzine, which she takes for anxiety). - Completed short course of prednisone Th or Fri (~01/12 or 01/13) and did have another episode ofurticaria this weekend, went to ED last night ([facility], no notes in our system on my review) andwas given another 5d course of pred (50mg daily). - With a few of these episodes she did endorse difficulty breathing and per EMR received epi pen inED. Nasopharyngoscopy at 01/04 visit without evidence of airway compromise. Does have hx of asthma and albuterol inhaler has been helpful during these episodes. - Does endorse joint pain occasionally during episodes of urticaria. - Interestingly, she thinks these episodes may be related to a new shampoo/conditioner, which she plans to discontinue. Patient is otherwise feeling well, without additional concerns. Physical Exam: Exam of face, chest, arms, notable for: - On the R upper arm there is a cluster of faint red urticarial papules. Sujit Mccurdy MD, PhD Dermatology Resident, PGY-3 Staff: [facility] Faculty Note: I saw the patient with the resident, and discussed with the resident and agree with the resident's findings and plan as documented in the resident's note. Bob Cheng MD, 01/23/2023 10:13 AM documented in this encounter Plan of Treatment Not on file documented as of this encounter Visit Diagnoses Diagnosis Urticaria- Primary Urticaria, unspecified documented in this encounter
--- OUTSIDE RECORDS SUMMARY | 2023-06-13 09:37 | XMS_ITS | Clinical Summary ---
Author Name Unknown Organization [facility] Address [place], [place] [address] Care Team Providers Care Retail Shift Manager Name Role Phone Kika Johnston Primary Care [...] MEAL 90 Tablet 2 05/20/20 23 Active baclofen (LIORESAL) 10 mg tabletIndications :Muscle spasm TAKE ONE TABLET BY MOUTH THREE TIMES A DAY . 90 Tablet 0 05/31/19 24 Active HYDROcodone-aceta minophen (5-325 mg/tablet)Indicat ions:Cervical stenosis of spine,Lumbar disc disease Take 1 Tablet by mouth 3 times daily if needed for Pain. Max acetaminophen dose: 4000 mg in 24 hrs. 21 Tablet 0 06/05/19 24 Active lidocaine 5 % topical patchIndications: Other chronic pain,Hip pain, right APPLY 1 PATCH ON DRY, CLEAN, HAIRLESS SKIN ONCE DAILY. 14 Patch 0 06/13/19 24 Active ondansetron (ZOFRAN ODT) 4 mg disintegrating tabletIndications :Nausea and vomiting, unspecified vomiting type Place 1 Tablet (4 mg) on the tongue every 8 hours if needed for Nausea/Vomiting. 30 Tablet 0 06/13/19 24 Active mirtazapine (REMERON) 7.5 mg tablet [...] Med complete/Regim en complete/Level of care change) FeroSuL 325 mg (65 mg iron) tabletIndications [...] Wear as directed. 3 Packet 3 03/14/20 024 Discontinued(* Med complete/Regim en complete/Level of care change) baclofen (LIORESAL) 10 mg tabletIndications :Muscle spasm Take 1 Tablet (10 mg) by mouth three times daily. Dose increase. 90 Tablet 1 05/01/20 23 024 Discontinued ondansetron (ZOFRAN ODT) 4 mg disintegrating tabletIndications :Nausea and vomiting, unspecified vomiting type Place 1 Tablet (4 mg) on the tongue every 8 hours if needed for Nausea/Vomiting. 30 Tablet 0 05/29/19 24 024 Discontinued(R eorder (E-cancel not sent)) HYDROcodone-aceta minophen (5-325 mg/tablet)Indicat ions:Cervical stenosis of [...] Varicose veins of leg with pain, right Anorexia nervosa 05/24/2021 Sleep difficulties 09/19/2018 Alcohol [...] Encounters Date Type Department Care Team Description 06/12/[address] [facility] [address] [place] [address] Clinic, Uvas Medication Management (Jennifer called and has question about stopping her Eliquis would like a nurse to call her back [facility] [phone]/Bruna Delatorre .................... 06/12/2023 1:54 PM/) 06/12/2023 Refill [facility] [address] [place] [address] Kika Johnston PA Refill Request (Lidocaine) 06/09/2023 11:15 AM COMPUTER SYSTEMS TECHNOLOGY INSTRUCTOR Ancillary Procedure [facility] [address] [place] [address] Arrived 06/09/2023 10:40 AM COMPUTER SYSTEMS TECHNOLOGY INSTRUCTOR Office Visit [facility] [address] [place] [address] Mee Lamar PA Foot Problem (Right foot swelling- started early april ) 06/09/[address] [facility] [address] [place] [phone] Magaly Pittman MD Foot Problem (Right foot swelling ) 06/09/2023 Travel 06/08/2023 9:45 AM COMPUTER SYSTEMS TECHNOLOGY INSTRUCTOR Ancillary Procedure [facility] [address] [facility] [address] Arrived 06/08/2023 Travel 06/05/2023 10:10 AM COMPUTER SYSTEMS TECHNOLOGY INSTRUCTOR Telemedicine [facility] [address] [place] [address] Kika Johnston PA Telehealth 06/04/2023 Travel 05/31/2023 Refill [facility] [address] [place] [address] Kika Johnston PA Refill Request (Baclofen) 05/29/2023 10:40 AM COMPUTER SYSTEMS TECHNOLOGY INSTRUCTOR Telemedicine [facility] [address] [place] [address] Kika Johnston PA Telehealth (Go over MRI results - ) 05/26/2023 Travel 05/25/2023 Orders Only [facility] Scanner 1 scan: (1-Ord) [facility], MRI THORACIC SPINE WO CON, 05/25/2023 05/24/2023 Travel 05/23/2023 3:30 PM COMPUTER SYSTEMS TECHNOLOGY INSTRUCTOR Telemedicine [facility] [address] [place] [phone] Error-please disregard (E-Visit inappropriate) 05/23/2023 2:10 PM COMPUTER SYSTEMS TECHNOLOGY INSTRUCTOR Telemedicine [facility] [address] [place] [address] Error-please disregard (E-Visit inappropriate) 05/23/2023 9:30 AM COMPUTER SYSTEMS TECHNOLOGY INSTRUCTOR Office Visit [facility] [address] [place] [address] Mee Lamar PA Neck Pain/problem (Feels crunching in neck/Having nausea and vomiting/Neck pain/Headache/migrai jodi//Started 2-3 weeks ago/Had a CT done - would like MRI if possible) 05/23/2023 Travel 05/20/2023 11:30 AM COMPUTER SYSTEMS TECHNOLOGY INSTRUCTOR Telemedicine [facility] [address] [place] [phone] Shannan Patricio PA Neck Pain/problem 05/20/2023 Travel 05/18/2023 Refill [facility] [address] [place] [address] Kika Johnston PA Refill Request (Ferosul) 05/18/2023 Patient Outreach [facility] [address] [place] [address] Aleah Mullen, RN Primary RN Care Management; Hospital F/U (LACE 78) 05/16/2023 Telephone [facility] [address] [place] [address] Kika Johnston PA Questions 05/13/2023 8:26 AM COMPUTER SYSTEMS TECHNOLOGY INSTRUCTOR - 05/17/2023 10:15 AM [facility] Hospital Encounter [facility] [address] [place] [address] Jazlyn Garcia, NEGRO Adult, Anw Psychiatry - Vinicius Brito MD Severe mixed bipolar 1 disorder without psychosis (HC) (Primary Dx) Discharge Disposition: Home Self Care 05/12/2023 5:47 PM COMPUTER SYSTEMS TECHNOLOGY INSTRUCTOR - 05/13/2023 7:27 AM [facility] Emergency [facility] [address] [place] [address] Cassie Crocker PA Drevlow, Kris [place], Auditory hallucinations (Primary Dx); Manic behavior (HC); Back pain, unspecified back location, unspecified back pain laterality, unspecified chronicity Discharge Disposition: Psychiatric Hos or Unit 05/12/2023 Orders Only [facility] Scanner 1 scan: (1-Ord) [place], ANGIO CHEST PE PROTOCOL, 05/12/2023 05/12/2023 Orders Only [facility] Scanner 1 scan: (1-Ord) [facility], VENOUS LE RT, 05/12/2023 05/12/2023 Travel 05/12/2023 Telephone [facility] [address] [place] [address] Kika Johnston PA Spinal Cord Injury Rehab Care Coordination - [facility] (Spinal Stenosis ) 05/11/2023 Orders Only [facility] Scanner 1 scan: (1-Ord) [place], CT LUMBAR SPINE WO CON, 05/11/2023 05/11/2023 Orders Only [facility] Scanner 1 scan: (1-Ord) [place], CT CERVICAL SPINE WO CON, 05/11/2023 05/11/2023 Telephone [facility] [address] [place] [address] Hector Baez MD Questions (call back ) 05/11/2023 Telephone [facility] [address] [place] [address] Hector Baez MD Follow Up (QUESTIONS); Error-please disregard 05/11/[address] [facility] [address] [place] [phone] Magaly Pittman MD Concerns 05/08/2023 Orders Only [facility] Scanner 1 scan: (1-Ord) [facility] VENOUS LE RT, 05/08/2023 05/08/[address] [facility] [address] [place] [address] Magaly Pittman MD 05/08/2023 Telephone [facility] [address] [place] [address] Hector Baez MD Appointment 05/01/2023 12:20 PM COMPUTER SYSTEMS TECHNOLOGY INSTRUCTOR Telemedicine [facility] [address] [place] [address] Kika Johnston PA Telehealth (Back pain - would like to go to pain clinic); Concerns (Would like to do pool therapy at [address], needs note. ); Medication Management (Discuss increase baclofen dose - ) 04/27/2023 3:25 PM COMPUTER SYSTEMS TECHNOLOGY INSTRUCTOR Telemedicine [facility] [address] [place] [phone] Vonda Ortiz NP Telehealth 04/26/2023 10:45 AM COMPUTER SYSTEMS TECHNOLOGY INSTRUCTOR Office Visit [facility] [address] [place] [address] Magaly Pittman MD Follow Up (follow up for right leg phlebectomy and ligation ) 04/26/2023 Travel 04/25/2023 2:40 PM COMPUTER SYSTEMS TECHNOLOGY INSTRUCTOR Telemedicine [facility] [address] [place] [phone] Oscar Cheatham PA Back Pain 04/25/2023 Travel 04/25/2023 Telephone [facility] [address] [place] [address] Kika Johnston PA Questions (BACK PAIN) 04/24/2023 Travel 04/21/2023 Orders Only [facility] Scanner 1 scan: (1-Ord) [facility], CT HEAD/BRAIN WO CON, 04/21/2023 04/14/2023 9:50 AM COMPUTER SYSTEMS TECHNOLOGY INSTRUCTOR Telemedicine [facility] [address] [place] [address] Kika Johnston PA Telehealth (Follow up from surgery - doing good); Medication Management (Stopped taking flexeril - was not helping, is there another option?) 04/12/2023 3:43 PM COMPUTER SYSTEMS TECHNOLOGY INSTRUCTOR Anesthesia Event [address] [address] Sujit Naranjo MD 04/12/2023 1:29 PM COMPUTER SYSTEMS TECHNOLOGY INSTRUCTOR - 04/12/2023 3:49 PM COMPUTER SYSTEMS TECHNOLOGY INSTRUCTOR Surgery [address] [address] Magaly Pittman MD RIGHT SAPHENOFEMORAL LIGATION AND RIGHT VARICOSE VEINS X22 STAB PHLEBECTOMIES 04/12/2023 11:22 AM COMPUTER SYSTEMS TECHNOLOGY INSTRUCTOR - 04/12/2023 7:15 PM COMPUTER SYSTEMS TECHNOLOGY INSTRUCTOR Hospital Encounter [address] [address] Magaly Pittman MD Postoperative pain (Primary Dx) Discharge Disposition: Home Self Care 04/12/2023 Refill [facility] [address] [place] [address] Kika Johnston PA Refill Request (Gabapentin) 04/11/2023 Travel 04/11/2023 Refill [facility] [address] [place] [address] Kika Johnston PA Refill Request (Acetaminophen) 04/09/2023 Travel 04/06/2023 Refill [facility] [address] [place] [address] Kika Johnston PA Refill Request (Banophen) 04/05/2023 10:30 AM COMPUTER SYSTEMS TECHNOLOGY INSTRUCTOR Preop Visit [facility] [address] [place] [address] Kika Johnston PA Preoperative Exam (R leg) 04/05/2023 Travel 03/31/2023 Travel 03/14/2023 11:00 AM CDT Office Visit [facility] [address] [facility] [address] [facility] [address] [place] [phone] Magaly Pittman MD Follow Up (venous insuff/varicose veins ) 03/14/2023 Travel 03/13/2023 10:30 AM CDT Telemedicine [facility] [address] [place] [address] Kika Johnston PA Telehealth (Gabapentin med check) 03/13/2023 Telephone [facility] [address] [place] [address] Kika Johnston PA OTHER from Last 3 Months Immunizations Name Administration Dates Next Due COVID-19 vaccine (Moderna 100mcg/0.5mL) LISSA SULLIVAN 12/07/2021,12/03/2020,11/05/2020 DTP 10/10/1985 DTaP 10/10/1985 Hepatitis A [...] Sex Assigned at Female 05/21/2021 8:17 AM COMPUTER SYSTEMS TECHNOLOGY INSTRUCTOR Gender Identity Female 05/21/2021 8:17 AM COMPUTER SYSTEMS TECHNOLOGY INSTRUCTOR Sexual Orientation Straight 02/13/2021 3: 53 AM CDT Obstetrics History Para Term AB IAB SAB Ectopic Multiple Livin g Live Births 3 2 2 1 1 2 Date Outcome GA Total Labor Labor/2nd/3rd Weight Sex Delivery Anes PTL Yolande A1 A5 Name Cl in Term Term SAB Last Filed Vital Signs Vital Sign Reading Time Taken Comments Blood Pressure 120/81 06/09/2023 10:32 AM COMPUTER SYSTEMS TECHNOLOGY INSTRUCTOR Pulse 88 06/09/2023 10:32 AM COMPUTER SYSTEMS TECHNOLOGY INSTRUCTOR Temperature 36.7 ??C (98 ??F) 05/23/2023 9:21 AM COMPUTER SYSTEMS TECHNOLOGY INSTRUCTOR Respiratory Rate 16 05/17/2023 7:50 AM COMPUTER SYSTEMS TECHNOLOGY INSTRUCTOR Oxygen Saturation 97% 06/09/2023 10: 32 AM COMPUTER SYSTEMS TECHNOLOGY INSTRUCTOR Inhaled Oxygen Concentration - - Weight 130.5 kg (287 lb 9.6 oz) 024 10:32 AM COMPUTER SYSTEMS TECHNOLOGY INSTRUCTOR Height 180.3 cm (5' 11) 05/13/2023 9:00 AM COMPUTER SYSTEMS TECHNOLOGY INSTRUCTOR Body Mass Index 40.11 05/13/2023 9:00 AM COMPUTER SYSTEMS TECHNOLOGY INSTRUCTOR Plan of Treatment Upcoming Encounters Date Type Department Care Team (Late st Contact Info) Description 06/19/2023 11:00 AM COMPUTER SYSTEMS TECHNOLOGY INSTRUCTOR Office Visit [facility] [address] [place] [address] Hector Baez MD [address] [place] [address] Health Maintenance Due Date Last Done Comments Pneumococcal series for age 6-64 (1 of 2 - PCV) 1986 Pap test for age 21-65 11/02/2019 7, 08/11/2014 (Completed outside of [facility]), 07/21/2009, Additional history exists COVID-19 vaccine series ( season) 2023 02/21/2022, 12/07/2021, 12/03/2020, Additional history exists BMI (ht and wt on same day) for age 18+ 04/05/2024 04/05/2023, 03/14/2023, 03/02/2023, Additional history exists Depression screening for age 12+ 05/16/2024 05/16/2023, 05/12/2023, 03/02/2023, Additional history exists Tetanus booster 01/24/2029 01/24/2019, /2 09/2013, 08/05/2005, Additional history exists Tdap Completed 04/15/2014, 08/05/2005 HIV for age 15-65 Completed 11/01/2016, , 09/23/2008 Hepatitis C screening for ag e 18-79 Completed 11/01/2016, 07/21/2009, 09/23/2008 Influenza for age 9-49 Completed 3, 02/21/2022, 01/24/2019, Additional history exists Procedures Procedure Name Priority Date/Time Associated Diagnosis Comments US VENOUS LOWER EXTREMITY RIGHT Routine 06/09/2023 11:30 AM COMPUTER SYSTEMS TECHNOLOGY INSTRUCTOR Swelling of right foot US PELVIS COMPLETE TA AND TV Routine 06/08/2023 11:25 AM COMPUTER SYSTEMS TECHNOLOGY INSTRUCTOR Mass of left ovary SCAN-MRI INTERPRETATION 05/25/2023 12:00 AM COMPUTER SYSTEMS TECHNOLOGY INSTRUCTOR DRUG SCREEN RAPID URINE INHOUSE Today 05/14/2023 10:36 AM COMPUTER SYSTEMS TECHNOLOGY INSTRUCTOR COMPLIANCE DRUG ANALYSIS Today 05/14/2023 10:36 AM COMPUTER SYSTEMS TECHNOLOGY INSTRUCTOR UA W/ SEDIMENT EXAM REFLEXED PER CRITERIA Today 05/14/2023 10:36 AM COMPUTER SYSTEMS TECHNOLOGY INSTRUCTOR CBC WITH AUTO DIFFERENTIAL Early AM 05/14/2023 8:07 AM COMPUTER SYSTEMS TECHNOLOGY INSTRUCTOR LIPID PANEL Early AM 05/14/2023 8:07 AM COMPUTER SYSTEMS TECHNOLOGY INSTRUCTOR HEMOGLOBIN A1C SCREENING Early AM 05/14/2023 8:07 AM COMPUTER SYSTEMS TECHNOLOGY INSTRUCTOR BASIC METABOLIC PANEL Early AM 05/14/2023 8:07 AM COMPUTER SYSTEMS TECHNOLOGY INSTRUCTOR CBC WITH AUTO DIFFERENTIAL Early AM 05/14/2023 8:07 AM COMPUTER SYSTEMS TECHNOLOGY INSTRUCTOR TSH Early AM 05/14/2023 8:07 AM COMPUTER SYSTEMS TECHNOLOGY INSTRUCTOR ETHANOL SERUM OR PLASMA Today 05/13/2023 12:07 PM COMPUTER SYSTEMS TECHNOLOGY INSTRUCTOR SCAN-CT INTERPRETATION 05/12/2023 12:00 AM COMPUTER SYSTEMS TECHNOLOGY INSTRUCTOR SCAN-ULTRASOUND REPORT 05/12/2023 12:00 AM COMPUTER SYSTEMS TECHNOLOGY INSTRUCTOR SCAN-CT INTERPRETATION 05/11/2023 12:00 AM COMPUTER SYSTEMS TECHNOLOGY INSTRUCTOR SCAN-CT INTERPRETATION 05/11/2023 12:00 AM COMPUTER SYSTEMS TECHNOLOGY INSTRUCTOR SCAN-ULTRASOUND REPORT 05/08/2023 12:00 AM COMPUTER SYSTEMS TECHNOLOGY INSTRUCTOR SCAN-CT INTERPRETATION 04/21/2023 12:00 AM COMPUTER SYSTEMS TECHNOLOGY INSTRUCTOR SUPRAGLOTTIC-LMA Routine 04/12/2023 3:58 PM COMPUTER SYSTEMS TECHNOLOGY INSTRUCTOR BEDSIDE US STUDY ARCHIVE Routine 04/12/2023 3:35 PM COMPUTER SYSTEMS TECHNOLOGY INSTRUCTOR LIGATION SAPHENO FEMORAL JUNCTION Tier 4 04/12/2023 3:33 PM COMPUTER SYSTEMS TECHNOLOGY INSTRUCTOR Varicose veins of lower extremities with complications, right Case Notes T/F - 2HRSSUPINE POSITION Special Needs 5ft10.98in 128.8kg 39.63 BMI BASIC METABOLIC PANEL Preop 04/12/2023 12:37 PM COMPUTER SYSTEMS TECHNOLOGY INSTRUCTOR CBC W PLT NO DIFF Preop 04/12/2023 12: 37 PM COMPUTER SYSTEMS TECHNOLOGY INSTRUCTOR URINE STAT 04/12/2023 12:10 PM COMPUTER SYSTEMS TECHNOLOGY INSTRUCTOR SCAN-CARDIAC STRIP 04/12/2023 12 :00 AM COMPUTER SYSTEMS TECHNOLOGY INSTRUCTOR from Last 3 Months Results * US VENOUS LOWER EXTREMITY RIGHT (06/09/2023 11:30 AM COMPUTER SYSTEMS TECHNOLOGY INSTRUCTOR) Anatomical Region Laterality Modality LEGS, LEG R, Abdomen Ultrasound 06/09/2023 11:5 9 AM COMPUTER SYSTEMS TECHNOLOGY INSTRUCTOR Impressions 06/09/2023 11:59 AM COMPUTER SYSTEMS TECHNOLOGY INSTRUCTOR Normal right lower extremity venous ultrasound, no sign of deep venous thrombosis. Dictated by Valentín Ontiveros MD @ 06/09/2023 11:59:26 AM (Electronically Signed) Narrative 06/09/2023 11:59 AM COMPUTER SYSTEMS TECHNOLOGY INSTRUCTOR For Patients: ??As a result of the [...] COMPLETE TA AND TV (06/08/2023 11:25 AM COMPUTER SYSTEMS TECHNOLOGY INSTRUCTOR) Anatomical Region Laterality Modality Pelvis Ultrasound 06/08/2023 12:5 0 PM COMPUTER SYSTEMS TECHNOLOGY INSTRUCTOR Impressions 06/08/2023 12:50 PM COMPUTER SYSTEMS TECHNOLOGY INSTRUCTOR Solid and cystic left ovarian lesion, not significantly changed, measuring 4.5 cm. Little, if any, internal blood flow. Gynecology referral recommended. Dictated by Sudhakar Contreras MD @ Jun 08 2023 12:50PM (Electronically Signed) ?? Narrative 06/08/2023 12:50 PM COMPUTER SYSTEMS TECHNOLOGY INSTRUCTOR For Patients: ??As a result of the Cures Act, medical imaging exams and procedure reports are released immediately into your electronic medical record. ??You may view this report before your referring provider. ??If you have questions, please contact your health care provider. INDICATION: Follow-up left ovary COMPARISON: [facility] 10/05/2022 TECHNIQUE: 2D khan scale and color [...] care provider. INDICATION: Follow-up left ovary COMPARISON: [facility] 10/05/2022 TECHNIQUE: 2D khan scale and color [...] There are no suspicious fluid collections within [id number]. IMPRESSION: Solid and cystic left ovarian lesion, not significantly changed, measuring4.5 cm. Little, if any, internal blood flow. Gynecology referralrecommended. Dictated by Sudhakar Contreras MD @ Jun 08 2023 12:50PM (Electronically Signed) Kika ATKINS US * SCAN-MRI INTERPRETATION (05/25/2023 12:00 AM COMPUTER SYSTEMS TECHNOLOGY INSTRUCTOR) Anatomical Region Laterality Modality Other Scanner OTHER * COMPLIANCE DRUG ANALYSIS [[id number]] (05/14/2023 10:36 AM COMPUTER SYSTEMS TECHNOLOGY INSTRUCTOR) 6-MONOACETYL MORPHINE NEG NEG ng/mL 05/18/2023 9:25 AM [facility] AMPHETAMINE URINE NEG <=500 ng/mL 05/18/2023 9:25 AM [facility] BARBITURATE URINE NEG <=200 ng/mL 05/18/2023 9:25 AM [facility] BENZODIAZEPINE URINE NEG <=100 ng/mL 05/18/2023 9:25 AM [facility] BUPRENORPHRINE URINE NEG <=5 ng/mL 04/22 9:25 AM [facility] COCAINE METAB URINE NEG <=300 ng/mL 05/18/2023 9:25 AM [facility] ETHYLGLUCURONIDE URINE NEG <=250 ng/mL 05/18/2023 9:25 AM [facility] FENTANYL URINE NEG <=4 ng/mL 05/18/2023 9:25 AM [facility] METHADONE URINE NEG <=300 ng/mL 05/18/2023 9:25 AM [facility] OPIATES URINE NEG <=300 ng/mL 05/18/2023 9:25 AM [facility] OXYCODONE URINE NEG <=100 ng/mL 05/18/2023 9:25 AM [facility] PROPOXYPHENE URINE NEG <=300 ng/mL 05/18/2023 9:25 AM [facility] THC 50 URINE NEG <=50 ng/mL 05/18/2023 9:25 AM [facility] TRAMADOL NEG <=200 ng/mL 05/18/2023 9:25 AM [facility] PH URINE 7.0 5.0 - 7.0 05/18/2023 9:25 AM [facility] CREAT UR 50 >=20 mg/dL 05/18/2023 9:25 AM [facility] MASS SPECTROMETRY URINE See Below 05/18/2023 9:25 AM [facility] Comment:Acetaminophen, Cital opram, Citalopram metabolite, Diphenhydramine, Gabapentin, Lamotrigine, Noroxycodone and Trazodone metabolite present. Urine URINE SPECIMEN / Unknown Non-Blood / Unknown 05/14/2023 10:36 AM [facility] 05/14/2023 10:46 AM [facility] - 05/18/2023 9:25 AM [facility] Current Facility-Administered Medications: aluminum-magnesium hydroxide-simethicone (MAALOX PLUS; [...] Release to patient->Immediate Tere Torres MD URINE [facility] [address] [place] [address], * (ABNORMAL) Drug screen, rapid urine inhouse TODAY (05/14/2023 10:36 AM COMPUTER SYSTEMS TECHNOLOGY INSTRUCTOR) THC METABOLITES,MAGI L Not Detected Not Detected 05/14/2023 11:00 AM [facility]AL [facility] PCP,QUAL Not Detected Not Detected 05/14/2023 11:00 AM [facility] COCAINE,QUAL Not Detected Not Detected 05/14/2023 11:00 AM [facility] METHAMPHETAMINE , QUALITATIVE Not Detected Not Detected 05/14/2023 11:00 AM [facility] OPIATES,QUAL Not Detected Not Detected 05/14/2023 11:00 AM [facility] AMPHETAMINE, QUALITATIVE Not Detected Not Detected 05/14/2023 11:00 AM [facility] BENZODIAZEPINES ,QUAL Non-negative , consider further testing if indicated(A) Not Detected 05/14/2023 11:00 AM [facility] TRICYCLICS,QUAL Not Detected Not Detected 05/14/2023 11:00 AM [facility] METHADONE, QUALITATIVE Not Detected Not Detected 05/14/2023 11:00 AM [facility] BARBITURATES,QU AL Not Detected Not Detected 05/14/2023 11:00 AM [facility] OXYCODONE, QUALITATIVE Not Detected Not Detected 05/14/2023 11:00 AM [facility] BUPRENORPHINE, QUALITATIVE Not Detected Not Detected 05/14/2023 11:00 AM [facility] Urine URINE SPECIMEN / Unknown Non-Blood / Unknown 05/14/2023 10:36 AM COMPUTER SYSTEMS TECHNOLOGY INSTRUCTOR 05/14/2023 10:46 AM COMPUTER SYSTEMS TECHNOLOGY INSTRUCTOR Narrative [facility] - 05/14/2023 11:00 AM COMPUTER SYSTEMS TECHNOLOGY INSTRUCTOR Please Note: ?? This is a screening [...] order PCP confirmation. Rizwan Garcia MD URINE [facility] [address] [place] [address], * UA W/ SEDIMENT EXAM REFLEXED PER CRITERIA (05/14/2023 10:36 AM COMPUTER SYSTEMS TECHNOLOGY INSTRUCTOR) COLOR Yellow Yellow Color 05/14/2023 10:50 AM [facility] TRAL LABORATORY CLARITY Clear Clear Clarity 05/14/2023 10:50 AM [facility] TRAL LABORATORY SPECIFIC GRAVITY,URINE 1.010 1.010, 1.015, 1.020, 1.025 05/14/2023 10:50 AM [facility] TRAL LABORATORY PH,URINE 7.0 6.0, 7.0, 8.0, 5.5, 6.5, 7.5, 8.5 05/14/2023 10:50 AM COMPUTER SYSTEMS TECHNOLOGY INSTRUCTOR [facility] TRAL LABORATORY UROBILINOGEN, QUALITATIVE Normal Normal EU/dl 05/14/2023 10:50 AM COMPUTER SYSTEMS TECHNOLOGY INSTRUCTOR [facility] TRAL LABORATORY PROTEIN, URINE Negative Negative mg/dL 05/14/2023 10:50 AM COMPUTER SYSTEMS TECHNOLOGY INSTRUCTOR [facility] TRAL LABORATORY GLUCOSE, URINE Negative Negative mg/dL 05/14/2023 10:50 AM COMPUTER SYSTEMS TECHNOLOGY INSTRUCTOR [facility] TRAL LABORATORY KETONES,URINE Negative Negative mg/dL 05/14/2023 10:50 AM COMPUTER SYSTEMS TECHNOLOGY INSTRUCTOR [facility] TRAL LABORATORY BILIRUBIN,URI NE Negative Negative 05/14/2023 10:50 AM COMPUTER SYSTEMS TECHNOLOGY INSTRUCTOR [facility] TRAL LABORATORY OCCULT BLOOD,URINE Negative Negative 05/14/2023 10:50 AM COMPUTER SYSTEMS TECHNOLOGY INSTRUCTOR [facility] TRAL LABORATORY NITRITE Negative Negative 05/14/2023 10:50 AM COMPUTER SYSTEMS TECHNOLOGY INSTRUCTOR [facility] TRAL LABORATORY LEUKOCYTE ESTERASE Negative Negative 05/14/2023 10:50 AM [facility] Urine URINE SPECIMEN / Unknown Non-Blood / Unknown 05/14/2023 10:36 AM COMPUTER SYSTEMS TECHNOLOGY INSTRUCTOR 05/14/2023 10:46 AM COMPUTER SYSTEMS TECHNOLOGY INSTRUCTOR Tere Torres MD URINE [facility] [address] [place], [place] [id number], * (ABNORMAL) CBC WITH AUTO DIFFERENTIAL (05/14/2023 8:07 AM COMPUTER SYSTEMS TECHNOLOGY INSTRUCTOR) WHITE BLOOD COUNT 13.2(H) 4.5 - 11.0 thou/cu mm 05/14/2023 8:48 AM COMPUTER SYSTEMS TECHNOLOGY INSTRUCTOR [facility] RED BLOOD COUNT 4.05 4.00 - 5.20 mil/cu mm 05/14/2023 8:48 AM COMPUTER SYSTEMS TECHNOLOGY INSTRUCTOR [facility] HEMOGLOBIN 11.3(L) 12.0 - 16.0 g/dL 05/14/2023 8:48 AM COMPUTER SYSTEMS TECHNOLOGY INSTRUCTOR [facility] HEMATOCRIT 34.6 33.0 - 51.0 % 05/14/2023 8:48 AM [facility] [[email or web address] [facility] LAB[facility]ORY MCV 85 80 - 100 fL 05/14/2023 8:48 AM [facility] [email or web address]] [facility] MCH 27.9 26.0 - 34.0 pg 05/14/2023 8:48 AM [facility] [[email or web address] [facility]AL [facility] MCHC 32.7 32.0 - 36.0 g/dL 05/14/2023 8:48 AM [facility] [email or web address]] [facility] RDW 14.0 11.5 - 15.5 % 05/14/2023 8:48 AM [facility] [email or web address]] [facility] PLATELET COUNT 400 140 - 440 thou/cu mm 05/14/2023 8:48 AM [facility] [email or web address]] [facility] MPV 8.5 6.5 - 11.0 fL 05/14/2023 8:48 AM [facility] [[email or web address]] [facility]AL [facility] NRBC 0.0 % 05/14/2023 8:48 AM [facility] [email or web address] [facility] ABS NRBC 0.0 thou /cu mm 05/14/2023 8:48 AM [facility] [email or web address]] [facility] % NEUT 74.1 % 05/14/2023 8:48 AM [facility] [[email or web address]] [facility] % LYMPH 16.7 % 05/14/2023 8:48 AM [facility] [[email or web address]] [facility] % MONO 6.8 % 05/14/2023 8:48 AM [facility] [[email or web address]] [facility] % EOS 1.4 % 05/14/2023 8:48 AM [facility] [[email or web address]] [facility] % BASO 0.3 % 05/14/2023 8:48 AM [facility] [[email or web address]] [facility] % IMMATURE GRAN (METAS,MYELOS,IN OS) 0.7 % 05/14/2023 8:48 AM [facility] [[email or web address]] [facility] ABSOLUTE NEUTROPHILS 9.8(H) 1.7 - 7.0 thou/cu mm 05/14/2023 8:48 AM [facility] [[email or web address]] [facility] ABSOLUTE LYMPHOCYTES 2.2 0.9 - 2.9 thou/cu mm 05/14/2023 8:48 AM [facility] [[email or web address]] [facility] ABSOLUTE MONOCYTES 0.9(H) <0.9 thou/cu mm 05/14/2023 8:48 AM COMPUTER SYSTEMS TECHNOLOGY INSTRUCTOR [facility] ABSOLUTE EOSINOPHILS 0.2 <0.5 thou/cu mm 05/14/2023 8:48 AM COMPUTER SYSTEMS TECHNOLOGY INSTRUCTOR [facility] ABSOLUTE BASOPHILS 0.0 <0.3 thou/cu mm 05/14/2023 8:48 AM COMPUTER SYSTEMS TECHNOLOGY INSTRUCTOR [facility] ABSOLUTE IMMATURE GRANULOCYTES(MET ,MYELOS,PROS) 0.1 <0.3 thou/cu mm 05/14/2023 8:48 AM COMPUTER SYSTEMS TECHNOLOGY INSTRUCTOR [facility] Blood BLOOD SPECIMEN / Unknown Venipuncture / Unknown 05/14/2023 8:07 AM COMPUTER SYSTEMS TECHNOLOGY INSTRUCTOR 05/14/2023 8:38 AM COMPUTER SYSTEMS TECHNOLOGY INSTRUCTOR Tere Torres MD HEMATOLOGY Performing Organization Address [facility] Co de Phone Number [facility] [address] [place] [address], * HEMOGLOBIN A1C SCREENING (05/14/2023 8:07 AM COMPUTER SYSTEMS TECHNOLOGY INSTRUCTOR) HEMOGLOBIN A1C SCREENING 5.7 <=6.4 % 05/14/2023 12:42 PM COMPUTER SYSTEMS TECHNOLOGY INSTRUCTOR [facility] Blood BLOOD SPECIMEN / Unknown Venipuncture / Unknown 05/14/2023 8:07 AM COMPUTER SYSTEMS TECHNOLOGY INSTRUCTOR 05/14/2023 8:38 AM COMPUTER SYSTEMS TECHNOLOGY INSTRUCTOR Narrative [facility] - 05/14/2023 12:42 PM COMPUTER SYSTEMS TECHNOLOGY INSTRUCTOR ? (<5.7%) ?Normal ? (5.7% to 6.4%) ? Indicates prediabetes ? (>=6.5%) ? Confirms diabetes Falsely low levels may be seen with: Recent Transfusion, Recent Significant Blood Loss, Hemolytic Diseases, or Falsely elevated levels may be seen with: Untreated Anemias, Splenectomy Tere Torres MD CHEMISTRY Performing Organization Address [facility] Co de Phone Number [facility] [address] [place] [address], [place] * TSH (05/14/2023 8:07 AM COMPUTER SYSTEMS TECHNOLOGY INSTRUCTOR) TSH 2.07 0.27 - 4.20 uIU/mL 05/14/2023 9:26 AM COMPUTER SYSTEMS TECHNOLOGY INSTRUCTOR [facility] Blood BLOOD SPECIMEN / Unknown Venipuncture / Unknown 05/14/2023 8:07 AM COMPUTER SYSTEMS TECHNOLOGY INSTRUCTOR 05/14/2023 8:39 AM COMPUTER SYSTEMS TECHNOLOGY INSTRUCTOR Narrative [facility] - 05/14/2023 9:26 AM COMPUTER SYSTEMS TECHNOLOGY INSTRUCTOR In Adults, TSH values between 5.00 and 10.00 uIU/ml do not necessarily indicate the presence of Hypothyroidism. Correlation with clinical findings such as presence of goiter and/or Thyroperoxidase (TPO) Antibody may be helpful. For more information please refer to [place] 2004; 291: 228-238. Tere Torres MD CHEMISTRY Performing Organization Address City/State/[facility] Co de Phone Number [facility] [address] [place] [phone], * (ABNORMAL) LIPID PANEL (05/14/2023 8:07 AM COMPUTER SYSTEMS TECHNOLOGY INSTRUCTOR) CHOLESTEROL,TOTAL 258(H) 100 - 199 mg/dL 05/14/2023 9:26 AM [facility] [[email or web address]] [facility] Comment: Cholesterol, Total Reference Ranges Desirable <200 mg/dL Borderline 200-239 mg/dL High >=240 mg/dL TRIGLYCERIDES 138 <150 mg/dL 05/14/2023 9:26 AM COMPUTER SYSTEMS TECHNOLOGY INSTRUCTOR [facility] HDL CHOLESTEROL 41 >40 mg/dL 9:26 AM COMPUTER SYSTEMS TECHNOLOGY INSTRUCTOR [facility] NON-HDL CHOLESTEROL 217(H) <145 mg/dl 05/14/2023 9:26 AM [facility] [[email or web address]] [facility]AL [facility] CHOL/HDL RATIO 6.29(H) <4.50 05/14/2023 9:26 AM [facility] [[email or web address]] TRAL [facility] LDL CHOLESTEROL 189(H) <=130 mg/dL 05/14/2023 9:26 AM [facility] [email or web address]] TRAL [facility] VLDL CHOLESTEROL 28 <=30 mg/dL 05/14/2023 9:26 AM [facility] PROVIDER ORDERED STATUS RANDOM 05/14/2023 9:26 AM [facility] Blood BLOOD SPECIMEN / Unknown Venipuncture / Unknown 05/14/2023 8:07 AM COMPUTER SYSTEMS TECHNOLOGY INSTRUCTOR 05/14/2023 8:39 AM [facility] Tere Torres MD CHEMISTRY [facility] [address] [place] [address], * (ABNORMAL) BASIC METABOLIC PANEL (05/14/2023 8:07 AM [facility]) Only the most recent of2 resultswithin the time period is included. SODIUM 141 136 - 145 mmol/L 05/14/2023 9:26 AM [facility] [[email or web address]] [facility] POTASSIUM 3.7 3.5 - 5.1 mmol/L 05/14/2023 9:26 AM [facility] [[email or web address]] TRAL LAB[facility]ORY CHLORIDE 106 98 - 107 mmol/L 05/14/2023 9:26 AM [facility] CO2,TOTAL 23 22 - 29 mmol/L 05/14/2023 9:26 AM [facility] [email or web address]] TRAL [facility]ORY ANION GAP 12 5 - 18 05/14/2023 9:26 AM [facility] [email or web address]] TRAL LAB[facility]ORY GLUCOSE 112(H) 70 - 99 mg/dL 05/14/2023 9:26 AM [facility] [[email or web address]] TRAL LAB[facility]ORY CALCIUM 9.3 8.6 - 10.0 mg/dL 05/14/2023 9:26 AM [facility] [[email or web address]] TRAL LAB[facility]ORY BUN 14 6 - 20 mg/dL 05/14/2023 9:26 AM [facility] CREATININE 0.80 0.50 - 0.90 mg/dL 05/14/2023 9:26 AM [facility] [[email or web address]] TRAL LAB[facility]ATORY BUN/CREAT RATIO 18 10 - 20 9:26 AM [facility] [email or web address]] TRAL LABORATORY eGFR >90 >90 mL/min/1.7 3m2 05/14/2023 9:26 AM COMPUTER SYSTEMS TECHNOLOGY INSTRUCTOR [facility] Comment:As of 2021, eG FR is calculated by the CKD-EPI creatinine equation without race adjustment. ??eGFR can be influenced by muscle mass, exercise, and diet. ??The reported eGFR is an estimation only and is only applicable if the renal function is stable. Blood BLOOD SPECIMEN / Unknown Venipuncture / Unknown 05/14/2023 8:07 AM COMPUTER SYSTEMS TECHNOLOGY INSTRUCTOR 05/14/2023 8:39 AM COMPUTER SYSTEMS TECHNOLOGY INSTRUCTOR Tere Torres MD CHEMISTRY Performing Organization Address City/[facility]/ZIP Co de Phone Number [facility] [address] [place] [address], * Ethanol, serum TODAY (05/13/2023 12:07 PM COMPUTER SYSTEMS TECHNOLOGY INSTRUCTOR) ETHANOL <0.010 <0.010 g/dL 05/13/2023 1:02 PM COMPUTER SYSTEMS TECHNOLOGY INSTRUCTOR [facility] Blood BLOOD SPECIMEN / Unknown Butterfly / Unknown 05/13/2023 12:07 PM COMPUTER SYSTEMS TECHNOLOGY INSTRUCTOR 05/13/2023 12:22 PM COMPUTER SYSTEMS TECHNOLOGY INSTRUCTOR Rizwan Garcia MD CHEMISTRY Performing Organization Address City/[facility]/ZIP Co de Phone Number [facility] [address] [place] [address], [place] * SCAN-ULTRASOUND REPORT (05/12/2023 12:00 AM COMPUTER SYSTEMS TECHNOLOGY INSTRUCTOR) Only the most recent of2 resultswithin the time period is included. Anatomical Region Laterality Modality Other Scanner OTHER * SCAN-CT INTERPRETATION (05/12/2023 12:00 AM COMPUTER SYSTEMS TECHNOLOGY INSTRUCTOR) Only the most recent of4 resultswithin the time period is included. Anatomical Region Laterality Modality Other Scanner OTHER * HCHG MASK PR5 (04/12/2023 3:58 PM COMPUTER SYSTEMS TECHNOLOGY INSTRUCTOR) Narrative Beryl Ba CRNA - 04/12/2023 3:58 PM COMPUTER SYSTEMS TECHNOLOGY INSTRUCTOR Beryl Ba CRNA ? 04/12/2023 ??3:58 PM Procedure: Supraglottic Patient location during procedure: OR Supraglottic Airway Properties Mask Ventilation: easy Type: unique Tube Size: 4 Insertion Attempts: 1 Placement Verification: auscultation and CO2 detection Assessment Assessment: atraumatic and dentition unchanged Sujit Naranjo MD ANESTHESIA PX N OTE ORDERABLES * (ABNORMAL) CBC with Platelet no Diff (04/12/2023 12:37 PM COMPUTER SYSTEMS TECHNOLOGY INSTRUCTOR) WHITE BLOOD COUNT 12.3(H) 4.5 - 11.0 thou/cu mm 04/12/2023 12:46 PM [facility] RED BLOOD COUNT 4.79 4.00 - 5.20 mil/cu mm 04/12/2023 12:46 PM [facility] HEMOGLOBIN 13.1 12.0 - 16.0 g/dL 04/12/2023 12:46 PM [facility] HEMATOCRIT 39.6 33.0 - 51.0 % 04/12/2023 12:46 PM [facility] MCV 83 80 - 100 fL 04/12/2023 12:46 PM [facility] MCH 27.3 26.0 - 34.0 pg 04/12/2023 12:46 PM [facility] MCHC 33.1 32.0 - 36.0 g/dL 04/12/2023 12:46 PM [facility] RDW 14.3 11.5 - 15.5 % 04/12/2023 12:46 PM [facility] PLATELET COUNT 462(H) 140 - 440 thou/cu mm 04/12/2023 12:46 PM [facility] MPV 8.2 6.5 - 11.0 fL 04/12/2023 12:46 PM [facility] NRBC 0.0 % 04/12/2023 12:46 PM [facility] ABS NRBC 0.0 thou /cu mm 04/12/2023 12:46 PM [facility] Blood BLOOD SPECIMEN / Unknown Venipuncture / Unknown 04/12/2023 12:37 PM COMPUTER SYSTEMS TECHNOLOGY INSTRUCTOR 04/12/2023 12:41 PM COMPUTER SYSTEMS TECHNOLOGY INSTRUCTOR Erlinda M Kipfer CHEMICAL SALES REPRESENTATIVE HEMATOLOGY [facility] [place]IP [phone] [place] [address] * Urine Lab Performed - [facility] Only (04/12/2023 12:10 PM COMPUTER SYSTEMS TECHNOLOGY INSTRUCTOR) ,URIN E Negative Negative 04/12/2023 12:38 PM COMPUTER SYSTEMS TECHNOLOGY INSTRUCTOR [facility] Urine URINE SPECIMEN / Unknown Non-Blood / Unknown 04/12/2023 12:10 PM COMPUTER SYSTEMS TECHNOLOGY INSTRUCTOR 04/12/2023 12:25 PM COMPUTER SYSTEMS TECHNOLOGY INSTRUCTOR Vamshi Wright MD URINE [facility] SENDOUT [place] [address] [phone] [place] [address] * SCAN-CARDIAC STRIP (04/12/2023 12:00 AM COMPUTER SYSTEMS TECHNOLOGY INSTRUCTOR) Narrative 04/12/2023 12:00 AM COMPUTER SYSTEMS TECHNOLOGY INSTRUCTOR Ordered by an unspecified provider. Other Clinical [...] Preferences, Provider to review later Care Teams Retail Shift Manager Relationship Specialty Start Date End Date Kika Johnston PA [address] [place] [address] PCP - General Physician Shingle Shearing Machine Operator 02/11/21
--- OUTSIDE RECORDS SUMMARY | 2023-06-13 09:38 | XMS_ITS | Encounter Summary ---
Author Name Unknown Organization [facility] Address [address] [place] [id number] Phone Care Team Providers Care Hoop Maker Machine Name Role Phone Unavailable Primary Care Provider Unavailabl e Reason for Referral * Consult/Test/Treat (Routine) - New Request Specialty Diagnoses / Procedures Referred By Devon t Referred To Contact Internal Medicine / MEDICINE Diagnoses Asthma, unspecified asthma severity, unspecified whether complicated, unspecified whether persistent Sudhakar Koenig MD [address] [place] [id number] PATIENT CHOICE Referral ID Status Reason Start Date Expiration Date V isits Requested Visits Authorized [id number] New Request 01/09/2023 01/10/2024 1 1 * Consult/Test/Treat (Routine) - Closed Specialty Diagnoses / Procedures Referred By Contac t Referred To Contact Dermatology / DERMATOLOGY Diagnoses Rash Anaphylaxis, initial encounter Sudhakar Koenig MD [address] [place] [id number] Referral ID Status Reason Start Date Expiration Date Visits Re quested Visits Authorized [id number] Closed 01/09/2023 01/10/2024 1 1 Reason for Visit * Reason Comments Allergic Reaction Derm Problem * Auth/Cert (Routine) Specialty Diagnoses / Procedures Referred By Contac t Referred To Contact MEDICINE Diagnoses Hypokalemia Rash Petechiae Polyarthralgia Near syncope Anaphylaxis, initial encounter Leeann Bain MD [address] [place] [id number] Medicine [address] [place] [address] Referral ID Status Reason Start Date Expiration Date Visits Re quested Visits Authorized [id number] 1 1 Encounter Details Date Type Department Care Team Description 01/07/2023 7:17 AM CDT - 01/09/2023 2:40 PM CDT Hospital Encounter [facility] [address] [place] [address] Leeann Bain MD [address] [place] [id number] Sudhakar Koenig MD [address] [place] [address] [address] [place], [place] [id number] Polyarthralgia Discharge Disposition: Discharged to home or self [...] suspected to have Coronavirus/COVID-19? No / Unsure 01/07/2023 4:43 PM CDT documented as of this encounter Last Filed [...] Mass Index 40.05 01/07/2023 6:31 PM CDT documented in this encounter Discharge Summaries * Sudhakar Koenig MD - 01/09/2023 12:16 PM CDT MEDICINE DISCHARGE SUMMARY Jennifer Tellez : 1980 Sex: female Date of Admission: 01/07/2023 Date of Discharge: 01/09/2023 Disposition: Home/Self Care Primary Care Physician: No primary care provider on file. BRIEF SUMMARY OF HOSPITALIZATION: Jennifer Tellez is a 42 y.o. female with past medical history of asthma, bipolar disorder, PTSD, and varicose veins admitted on 01/07/2023 with diffuse rash and polyarthralgia . On presentation to the ED she was given epinephrine, Benadryl, DuoNebs, magnesium and Solu-Medrol for anaphylaxis due todiffuse urticaria and wheezing. During admission dermatology was consulted . Rash suspicious for severe urticaria rash Vs Urticaria multiforme vs Urticaria vasculitis for which she was started on benadryl, prednisolone, famotidine and cetrizine. Hospital course was complicated by asthma exacerbation she received DuoNebs and inhaled albuterol. Patient's rash is improving it is okay to discharge with dermatology follow-up on Monday. HOSPITAL COURSE BY PROBLEM: Severe urticarias rash Vs Urticaria multiforme vs Urticarial vasculitis Rash Polyarthralgia H/o anaphylaxis Patient's rash appears to be urticarial vs morbilliform on her trunk and extremities, however it seems to take on a targetoid appearance on her inner thighs. Pictures available in the chart. Differentials could include chemical exposure, drug reaction, allergic reaction, autoimmune disease, or infectious disease. Dermatology was consulted. They recommended work-up for an urticarial vasculitis, which was ordered. Most likely diagnosis is severe urticarial rash vs urticaria multiforme. She also endorsed a history of migratory polyarthralgias over the last 4 days which could also indicate a possible infectious etiology hence Lyme disease serology testing. For now, treatment will include oral and topical steroids and histamine antagonists for the itching. During admission HIV , hepatitis B and C serology were negative. C3 and C4 were within normal range. Pending lab results are detailed below. H/o asthma Patient has a history of asthma. States she has not needed an inhaler for several years, but has had to use inhalers during this admission. - PRN albuterol q4h -Referred externally (to patient choice) to internal medicine for asthma follow-up H/o bipolar disorder Anxiety Chronic back pain Continue METAL SORTER hydroxyzine, lamotrigine, mirtazapine, buspirone, bupropion, aripiprazole. H/o genital HSV Continue METAL SORTER valacyclovir PERTINENT STUDIES & CONSULTS: Dermatology PENDING TESTS RESULTS: ANCA associated vasculitis profile, Cryoglobulin, FELIZ, Antistreptolysin O BLANCA, Lyme antibody screen RECOMMENDATIONS AND FOLLOWUP: Please follow up with Dermatology No future appointments. PHYSICAL EXAMINATION: BP 128/73 (Cuff Location: Right Arm) Pulse 55 Temp 36.8 ??C (98.2 ??F) (Tympanic) Resp 20 Ht 1.803 m () Wt 130.2 kg (287 lb 0.6 oz) SpO2 98% BMI 40.05 kg/m?? Estimated body mass index is 40.05 kg/m?? as calculated from the following: Height as of this encounter: 1.803 m (). Weight as of this encounter: 130.2 kg (287 lb 0.6 oz). Physical Exam Constitutional: Alert, cooperative, and in no distress Eyes: Eye lids clear, and sclera white HEENT: Normocephalic, no masses, no lesions, decreased facial swelling Pulmonary: Chest symmetric, lungs clear bilaterally. Cardiovascular: Regular rate and rhythm; peripheral pulses intact Extremities: No lower extremity edema Gastrointestinal: Soft, non-tender, non-distended Skin: Normal skin color. No rashes Neurologic: Cranial nerves II-XII grossly normal, moving all extremities Psychiatric: Alert, oriented, cooperative, normal affect PLANNED DISCHARGE ORDERS: Discharge Procedure Orders Referral to Dermatology Referral Priority: Routine Referral Type: Consult/Test/Treat Requested Specialty: Dermatology Number of Visits Requested: 1 Expiration Date: 01/10/24 Referral to Internal Medicine Referral Priority: Routine Referral Type: Consult/Test/Treat Referral Location: PATIENT CHOICE Requested Specialty: Internal Medicine Number of Visits Requested: 1 Expiration Date: 01/10/24 Why you were at the hospital: Order Comments: You were in the hospital for recurrent diffuse rash (Uticaria). When should I be concerned? Order Comments: Go to the Emergency Department or call 911 IF: -- you have worsening unsteadiness on feet, chest pain, shortness of breath, dizziness, or severe headache -- you have pain that is not controlled by medicine, rest, elevation, or ice -- you have redness, swelling, or severe pain in one or both of your legs -- you feel depressed beyond ups and downs -- you feel you are getting worse or having an increase in problems Please contact your primary care provider as needed. Order Comments: Please contact your primary care provider as needed. Please make an appointment with an [facility] provider: Order Comments: -- Please call [phone] [phone] to schedule an [facility] appointment with dermatology within 4 week(s) of your discharge for follow up on rash. Up as tolerated activity level. Order Comments: UP TOLERATED -- Rest is an important part of healing. Save your energy by spreading out activities that make youtired. Rest as needed. -- Slowly increase your level of activity. Regular diet Order Comments: -- Eat a wide variety of foods, including fruits and vegetables, dairy, grains and meats. Medication List START taking these medications albuterol 108 (90 BASE) mcg/act inhaler Commonly known as: VENTOLIN HFA;PROVENTIL HFA;PROAIR Inhale 1-2 puffs every 4 hours as needed for bronchospasm and/or wheezing. triamcinolone acetonide 0.1 % ointment Commonly known as: KENALOG Apply onto the body and face twice a day. CHANGE how you take these medications Banophen 50 mg Capsule Generic drug: diphenhydrAMINE Take 1 capsule (50 mg) by mouth 4 times daily as needed for itching, allergic reaction(s) or allergy symptoms. What changed: when to take this cetirizine 10 mg tablet Commonly known as: ZyrTEC Take 1 tablet (10 mg) by mouth twice daily. What changed: when to take this famotidine 20 mg tablet Commonly known as: PEPCID Take 1 tablet (20 mg) by mouth at bedtime. What changed: when to take this predniSONE 20 mg tablet Commonly known as: DELTASONE Take 3 tablets (60 mg) by mouth daily for 4 days, THEN 2 tablets (40 mg) daily for 2 days, THEN 1 tablet (20 mg) daily for 2 days. Start taking on: January 10, 2023 What changed: See the new instructions. CONTINUE taking these medications acetaminophen 500 mg tablet Commonly known as: TYLENOL ARIPiprazole 10 mg tablet Commonly known as: ABILIFY buPROPion 300 mg Tablet 24 hr Commonly known as: WELLBUTRIN XL busPIRone 10 mg tablet Commonly known as: BUSPAR CHOLEcalciferol 57174 UNITS capsule Commonly known as: VITAMIN D3 citalopram 20 mg tablet Commonly known as: CeleXA EPINEPHrine 0.3 mg/0.3 mL injection Commonly known as: EPIPEN / AUVI-Q Inject 0.3 mL (0.3 mg) into a muscle one time as needed for Allergic Reaction(s). ferrous sulfate 325 mg Tabs GABApentin 300 mg Capsule Commonly known as: NEURONTIN hydrocortisone 2.5% Ointment Apply thin layer to hives as needed twice a day hydrOXYzine pamoate 25 mg capsule Commonly known as: VISTARIL lamoTRIgine 25 mg Tabs Commonly known as: LaMICtal methocarbamol 500 mg Tabs Commonly known as: ROBAXIN-500 mirtazapine 7.5 mg Tabs Commonly known as: REMERON naltrexone 50 mg Tabs Commonly known as: REVIA naproxen 500 mg Tabs Commonly known as: NAPROSYN omeprazole 20 mg capsule Commonly known as: PriLOSEC sennosides-docusate sodium 8.6-50 mg tablet Commonly known as: STOOL SOFTENER/LAXATIVE valACYclovir 500 mg Tabs Commonly known as: VALTREX STOP taking these medications cepacol 15-3.6 mg mouth/throat lozenge Where to Get Your Medications These medications were sent to [facility] [place] [address] Hours: / albuterol 108 (90 BASE) mcg/act inhaler Banophen 50 mg Capsule cetirizine 10 mg tablet famotidine 20 mg tablet predniSONE 20 mg tablet triamcinolone acetonide 0.1 % ointment Discussed diagnosis and treatment plan with the patient. Patient verbalized understanding of condition and treatment plan. Planned readmission in the next 30 days: Annmarie Casillas MD, 01/09/2023 3:57 PM DISCHARGE FACULTY NOTE today, 01/09/2023, I personally participated in the final examination and review of hospitalization and concur with the discharge plans and follow-up as outlined. I discussed with the resident and agree with the resident???s findings and plan documented in the resident???s note from above. Any revisions by me are documented. The discharge process has taken: greater than 30 minutes Sudhakar Koenig MD, 01/09/2023 4:12 PM documented in this encounter Medications at Time of Discharge Medication Sig Dispensed Refills Start Date End Date diphenhydrAMINE (BENADRYL) 50 mg oral capsuleIndications:A cute Urticaria,Anaphylaxi s Take 1 capsule (50 mg) by mouth 4 times daily as needed for itching, allergic reaction(s) or allergy symptoms. 120 capsule 3 01/09/2023 famotidine (PEPCID) 20 mg oral tablet Take 1 tablet (20 mg) by mouth at bedtime. 30 tablet 3 01/09/2023 albuterol (VENTOLIN HFA;PROVENTIL HFA;PROAIR) 108 (90 BASE) mcg/act inhalation inhaler Inhale 1-2 puffs every 4 hours as needed for bronchospasm and/or wheezing. 8.5 g 3 01/09/2023 triamcinolone acetonide (KENALOG) 0.1 % externally ointment Apply onto the body and face twice a day. 80 g 1 01/09/2023 methocarbamol (ROBAXIN-500) 500 mg oral TABS Take 1 tablet (500 mg) by mouth 4 times daily as needed (back pain). 0 GABApentin (NEURONTIN) 300 mg oral capsule Take 1 capsule (300 mg) by mouth twice daily. 0 mirtazapine (REMERON) 7.5 mg oral TABS Take 1 tablet (7.5 mg) by mouth daily. 0 naltrexone (REVIA) 50 mg oral TABS Take 1 tablet (50 mg) by mouth daily. 0 omeprazole (PRILOSEC) 20 mg oral capsule Take 1 capsule (20 mg) by mouth daily. 0 valACYclovir (VALTREX) 500 mg oral TABS Take 1 tablet (500 mg) by mouth daily. 0 hydrOXYzine pamoate (VISTARIL) 25 mg oral capsule Take 2 capsules (50 mg) by mouth 3 times daily as needed (ANXIETY). 0 ferrous sulfate 325 mg oral TABS Take 1 tablet (325 mg) by mouth daily. 0 acetaminophen (TYLENOL) 500 mg oral tablet Take 1 tablet (500 mg) by mouth every 6 hours as needed. 0 CHOLEcalciferol (VITAMIN D3) 72806 UNITS oral capsule Take 1 capsule (50,000 UNITS) by mouth every week. 0 naproxen (NAPROSYN) 500 mg oral TABS Take 1 tablet (500 mg) by mouth daily as needed. 0 sennosides-docusate sodium (STOOL SOFTENER/LAXATIVE) 8.6-50 mg oral tablet Take 2 tablets by mouth twice daily. 0 ARIPiprazole (ABILIFY) 10 mg oral tablet Take 1 tablet (10 mg) by mouth daily. 0 12/29/2022 buPROPion (WELLBUTRIN XL) 300 mg oral tablet 24 HR Take 1 tablet (300 mg) by mouth daily. 0 12/29/2022 busPIRone (BUSPAR) 10 mg oral tablet Take 1 tablet (10 mg) by mouth 3 times daily. 0 12/29/2022 citalopram (CELEXA) 20 mg oral tablet Take 1 tablet (20 mg) by mouth daily. 0 12/29/2022 lamoTRIgine (LAMICTAL) 25 mg oral TABS Take 2 tablets (50 mg) by mouth daily. 0 12/29/2022 hydrocortisone 2.5% externally ointment Apply thin layer to hives as needed twice a day 20 g 1 01/05/2023 EPINEPHrine (EPIPEN / AUVI-Q) 0.3 mg/0.3 mL injectionIndications :Anaphylaxis Inject 0.3 mL (0.3 mg) into a muscle one time as needed for Allergic Reaction(s). 2 Pen 11 01/05/2023 cetirizine (ZYRTEC) 10 mg oral tabletIndications:Ac mariela Urticaria,Anaphylaxi s Take 1 tablet (10 mg) by mouth twice daily. 60 tablet 3 01/09/2023 01/16/2023 predniSONE (DELTASONE) 20 mg oral tablet Take 3 tablets (60 mg) by mouth daily for 4 days, THEN 2 tablets (40 mg) daily for 2 days, THEN 1 tablet (20 mg) daily for 2 days. 18 tablet 0 01/10/2023 01/16/2023 documented as of this encounter Progress Notes * Sherry Shipman RN - 01/09/2023 2:40 PM CDT DISCHARGE NOTE D: Patient has been discharged. A: (As documented in the Discharge Planning Flowsheet) Discharge Instructions (AVS): Discharge clothing/valuables: has no valuables in vault Discharge medications: Home equipment status: no equipment needed Home equipment/supplies recommended: none Final discharge destination: Home or self care R: The patient understood the AVS. P: Support patient, family, and caregiver(s) if they call back with questions. * Harpal Saldaña MBBS - 01/08/2023 8:39 AM CDT MEDICINE PROGRESS NOTE Jennifer Tellez : 1980 Sex: female Patient Summary: Jennifer Tellez is a 42 y.o. female with past medical history of asthma, bipolar disorder, PTSD, and varicose veins admitted on 01/07/2023 with diffuse rash and polyarthralgia. Assessment & Plan: Rash Polyarthralgia H/o anaphylaxis Patient's rash appears to be urticarial vs morbilliform on her trunk and extremities, however it seems to take on a targetoid appearance on her inner thighs. Pictures available in the chart. Differentials could include chemical exposure, drug reaction, allergic reaction, autoimmune disease, or infectious disease. Dermatology has been consulted. They recommend work-up for an urticarial vasculitis,which has been ordered. Most likely diagnosis is severe urticarial rash vs urticaria multiforme Fornow treatment will include oral and topical steroids and histamine antagonists for the itching. Ok to continue her home meds Rash improved today, likely due to increased steroid dose. - Dermatology consulted, appreciate recs -Cetirizine 10 mg 3 times daily -Prednisone 100 mg daily -0.1% triamcinolone ointment twice daily -Benadryl 50 mg q6h as needed for itching -HIV -ve -Hep B, hep C serology -ve -Complement C3, C4, cryoglobulin -FELIZ screen -ANCA screen The patient endorses a history of migratory polyarthralgias over the past 2 days. This does indicate a possible infectious etiology. Can consider ID consult. -Lyme disease serology pending H/o asthma Patient has a history of asthma. States she has not needed an inhaler for several years, however she needed one today in the ER. -PRN albuterol q4h H/o bipolar disorder Anxiety Chronic back pain Continue METAL SORTER hydroxyzine, lamotrigine, mirtazapine, buspirone, bupropion, aripiprazole. H/o genital HSV Continue METAL SORTER valacyclovir Resolved Problems: Discharge planning: Pending improvement in rash Subjective/Events of Past 24 Hours: Hospital Day: 1 No weakness, patient walking around the [place] Rash improved. Pruritis in lower extremities. Objective: Constitutional: Alert, cooperative, in no acute distress. HEENT: Normocephalic, atraumatic. EOMI. Pulmonary: Chest symmetric, lungs clear bilaterally without wheezes, rales, or rhonchi. Cardiovascular: Heart: Regular rate and rhythm. Normal S1 and S2 without murmurs, rubs, or gallops. Peripheral Vascular: Extremities warm and well-perfused. Abdomen: Soft, non-tender, non-distended. No rebound or guarding. Musculoskeletal: No edema, no tenderness. No weakness on exam. Skin: Urticarial lesions noted on shoulders and trunk. Facial erythema, now with some desquamation.Confluent targetoid lesions on inner thighs and now arms. Facial swelling. Non-blanchable. Overall improved from yesterday Pictures in chart. Neurologic: Cranial nerves II-XII grossly intact. Psychiatric: Alert, oriented, cooperative, normal affect. -- CHARLES Slaughter Internal Medicine, PGY-1 01/08/23 08:51 Charge Capture Scalp Treatment Specialist documented in this encounter H&P Notes * Harpal Saldaña MBBS - 01/07/2023 4:46 PM CDT MEDICINE HISTORY AND PHYSICAL Jennifer Tellez : 1980 Sex: female Patient Summary: Jennifer Tellez is a 42 y.o. female with past medical history of asthma, bipolardisorder, PTSD, and varicose veins admitted on 01/07/2023 with diffuse rash and polyarthralgia. Assessment and Plan: Rash Polyarthralgia H/o anaphylaxis Patient's rash appears to be urticarial vs morbilliform on her trunk and extremities, however it seems to take on a targetoid appearance on her inner thighs. Pictures available in the chart. Differentials could include chemical exposure, drug reaction, allergic reaction, autoimmune disease, or infectious disease. Dermatology has been consulted. They recommend work-up for an urticarial vasculitis,which has been ordered. For now treatment will include steroids and histamine antagonist for the itching. Ok to continue her home meds - Dermatology consulted, appreciate recs -Cetirizine 10 mg 3 times daily -Prednisone 100 mg daily -0.1% triamcinolone ointment twice daily -Benadryl 50 mg q6h as needed for itching -HIV, hep B, hep C serology -Complement C3, C4, cryoglobulin -FELIZ screen -ANCA screen The patient states history of migratory polyarthralgias over the past 2 days. This does indicate a possible infectious etiology. Can consider ID consult in the a.m. -Lyme disease serology pending H/o asthma Patient has a history of asthma. States she has not needed an inhaler for several years, however she needed one today in the ER. -PRN albuterol q4h H/o bipolar disorder Anxiety Chronic back pain Continue METAL SORTER hydroxyzine, lamotrigine, mirtazapine, buspirone, bupropion, aripiprazole. H/o genital HSV Continue METAL SORTER valacyclovir History of Present Illness: Jennifer Tellez is a 42 y.o. female with past medical history of asthma, bipolar disorder, PTSD, and varicose veins who presented 01/07/2023 with 1 week of rash and now polyarthralgia. According to the patient, she started developing a rash last Monday, [place]. She presented to the ED in [place], where she received 1 dose Solu-Medrol and Benadryl. The rash did not improve so she presented again on Thursday 01/04, and she was transferred to [facility]. She was admitted and received epinephrine, Benadryl, cetirizine, and another dose of Solu-Medrol. She receivednasolaryngoscopy at this time, which revealed no upper airway edema. There was some improvement, ally was discharged 01/05 with Benadryl and a steroid taper. She had no improvement, and so she presented again to the ED on 01/07. The patient states now she also has some facial swelling, lightheaded ness, and pain in her shoulders and knees, with associated weakness. As per the patient the rash has not improved since it started. It is severely pruritic. She states the facial swelling has not gone down at all. She has had pain in her shoulders, and now in her knees over the past few days. Today she states the pain in her knees was so severe she could not stand, and needed help ambulating. She has not had any trouble breathing, wheezing, or cough. However todayin the ER she did have an episode of wheezing, for which she received DuoNebs and albuterol. As per the patient she lives alone in her apartment in [place] and has has had no changes in herhyrum environment, including soaps or detergents. She does not work, is on disability due to her mental illness. She states she used a body spray given to her by her friend on Monday however this issomething she has used in the past. She went swimming in [facility] Monday but did not submerge her neck or head, she did not use any sunscreen, and after that her clothes were washed in detergent that her friend uses. No other exposures to chemicals. No history of travel, no history of animalexposure. No prior history of such rash. She has not had any changes to her medicines recently. Shehas not been sexually active for several years now. States she eats a balanced diet, has not noted any change in her sense of taste. She states she has a history of anaphylaxis when exposed to shellfish, but does not recall eating any recently. She states for the past 3 days she has been living with her friend here in [place], and has not been back to her home in [place]. Her rash has not c hanged since being in this new environment, and she has not had any of her medications for the pastfew days. She is hemodynamically stable. ED work-up was significant for slightly increased CRP and ESR. She was also found to be hypokalemic, however this was after she received DuoNebs and albuterol. Potassium was repleted in the ED. She reports having a fracture in her left hip of the 2 months ago s/p total hip replacement. DEXA scan done showed no osteoporosis. The patient denies any paresthesias, altered sensation, changes in vision, headache, or any gastrointestinal symptoms. Links to update patient chart: Medical History, Surgical History, Family History, Psychosocial History, Medication List, Allergies, Code Status, LDA & Wounds Objective: Vitals: 01/07/23 1506 BP: 125/75 Pulse: (!) 110 Resp: (!) 33 Temp: SpO2: 94% Physical Exam: Constitutional: Alert, cooperative, in no acute distress. HEENT: Normocephalic, atraumatic. EOMI. Pulmonary: Chest symmetric, lungs clear bilaterally without wheezes, rales, or rhonchi. Cardiovascular: Heart: Regular rate and rhythm. Normal S1 and S2 without murmurs, rubs, or gallops. Peripheral Vascular: Extremities warm and well-perfused. Abdomen: Soft, non-tender, non-distended. No rebound or guarding. Musculoskeletal: No edema, no tenderness. No weakness on exam. Skin: Urticarial lesions noted on shoulders and trunk. Facial erythema. Confluent targetoid lesionsthighs. Facial swelling. Pictures in chart. Neurologic: Cranial nerves II-XII grossly intact. Psychiatric: Alert, oriented, cooperative, normal affect. PCP: No primary care provider on file. -- CHARLES Slaughter Internal Medicine, PGY-1 01/07/23 21:09 Associated attestation - Sudhakar Koenig MD - 01/08/2023 2:45 PM CDT FACULTY NOTE I saw and evaluated the patient today, 01/08/2023. I discussed with the resident and agree with the resident???s findings and plan documented in the resident???s note from above. Any revisions by me are documented. Sudhakar Koenig MD, 01/08/2023 2:45 PM documented in this encounter Consult Notes * Iqbal, PharmD - 01/09/2023 12:22 PM CDTAssociated Order(s): DISCHARGE MED REC FINAL REVIEW BY PHARMACY PHARMACY DISCHARGE NOTE Jennifer Tellez : 1980 Sex: female Pharmacy service was consulted for review of patient's discharge medications. Planned discharge medications are: Medication List Medications Indications acetaminophen 500 mg tablet Commonly known as: TYLENOL Take 1 tablet (500 mg) by mouth every 6 hours as needed. albuterol 108 (90 BASE) mcg/act inhaler Commonly known as: VENTOLIN HFA;PROVENTIL HFA;PROAIR Inhale 1-2 puffs every 4 hours as needed for bronchospasm and/or wheezing. ARIPiprazole 10 mg tablet Commonly known as: ABILIFY Take 1 tablet (10 mg) by mouth daily. Banophen 50 mg Capsule Generic drug: diphenhydrAMINE Take 1 capsule (50 mg) by mouth 4 times daily as needed for itching, allergic reaction(s) or allergy symptoms. Indications: Acute Urticaria, Life-Threatening Hypersensitivity Reaction buPROPion 300 mg Tablet 24 hr Commonly known as: WELLBUTRIN XL Take 1 tablet (300 mg) by mouth daily. busPIRone 10 mg tablet Commonly known as: BUSPAR Take 1 tablet (10 mg) by mouth 3 times daily. cetirizine 10 mg tablet Commonly known as: ZyrTEC Take 1 tablet (10 mg) by mouth twice daily. Indications: Acute Urticaria, Life-Threatening Hypersensitivity Reaction CHOLEcalciferol 64075 UNITS capsule Commonly known as: VITAMIN D3 Take 1 capsule (50,000 UNITS) by mouth every week. citalopram 20 mg tablet Commonly known as: CeleXA Take 1 tablet (20 mg) by mouth daily. EPINEPHrine 0.3 mg/0.3 mL injection Commonly known as: EPIPEN / AUVI-Q Inject 0.3 mL (0.3 mg) into a muscle one time as needed for Allergic Reaction(s). Indications: Life-Threatening Hypersensitivity Reaction famotidine 20 mg tablet Commonly known as: PEPCID Take 1 tablet (20 mg) by mouth at bedtime. ferrous sulfate 325 mg Tabs Take 1 tablet (325 mg) by mouth daily. GABApentin 300 mg Capsule Commonly known as: NEURONTIN Take 1 capsule (300 mg) by mouth twice daily. hydrocortisone 2.5% Ointment Apply thin layer to hives as needed twice a day hydrOXYzine pamoate 25 mg capsule Commonly known as: VISTARIL Take 2 capsules (50 mg) by mouth 3 times daily as needed (ANXIETY). lamoTRIgine 25 mg Tabs Commonly known as: LaMICtal Take 2 tablets (50 mg) by mouth daily. methocarbamol 500 mg Tabs Commonly known as: ROBAXIN-500 Take 1 tablet (500 mg) by mouth 4 times daily as needed (back pain). mirtazapine 7.5 mg Tabs Commonly known as: REMERON Take 1 tablet (7.5 mg) by mouth daily. naltrexone 50 mg Tabs Commonly known as: REVIA Take 1 tablet (50 mg) by mouth daily. naproxen 500 mg Tabs Commonly known as: NAPROSYN Take 1 tablet (500 mg) by mouth daily as needed. omeprazole 20 mg capsule Commonly known as: PriLOSEC Take 1 capsule (20 mg) by mouth daily. predniSONE 20 mg tablet Commonly known as: DELTASONE Take 3 tablets (60 mg) by mouth daily for 4 days, THEN 2 tablets (40 mg) daily for 2 days, THEN 1 tablet (20 mg) daily for 2 days. Start taking on: January 10, 2023 sennosides-docusate sodium 8.6-50 mg tablet Commonly known as: STOOL SOFTENER/LAXATIVE Take 2 tablets by mouth twice daily. triamcinolone acetonide 0.1 % ointment Commonly known as: KENALOG Apply onto the body and face twice a day. valACYclovir 500 mg Tabs Commonly known as: VALTREX Take 1 tablet (500 mg) by mouth daily. Assessment: Pertinent points to note: Per team and derm's discussion, patient to begin tapering prednisone in place of completing 7 day prednisone 100mg course first. I have reviewed the patient's medications for discharge and have discussed the necessary changes with the provider. Changes have been made and medication list updated and complete. Please page with any questions. Brendan Pressley PharmD 01/09/2023 12:22 For questions regarding this note, please contact pharmacist on service at [facility] ([employer]) or [phone]. If no response within needed timeframe, please contact central pharmacy via phone at [phone]. * Rosaura Bergeron MD - 01/09/2023 8:00 AM CDTAssociated Order(s): CONSULT TO DERMATOLOGY [facility] Consult Note Jennifer Tellez : 1980 Sex: female Encounter Date: 01/09/23 Date of Admission: 01/07/2023 Encounter Date: 01/09/23 Reason for Consultation: Urticarial vs morbilliform rash and to restart lamotrigine ASSESSMENT & RECOMMENDATIONS 42 y/o female recently admitted for anaphylaxis p/w urticarial race, facial edema and polyarthralgia, elevated CRP and ESR, negative hep serologies, and negative infectious symptoms. #Widespread urticarial papules and plaques with facial edema #Polyarthralgia Given history and urticarial like lesions from media. Our differential at this time includes SevereUrticarial Reaction, Urticaria Multiforme vs Urticarial Vasculitis iso potential autoimmune dz, paraneoplastic vs possibly infection. Urticaria multiforme represents a morphologic subset of urticarial reactions. It is a common, benign hypersensitivity reaction mediated by histamine that predominantly affects children between 4 months and 4 years of age. This entity often manifests after a preceding illness, medication exposure, or vaccination. It can be mistaken for more concerning entities, namely erythema multiforme or serum sickness. On physical exam, patients appear nontoxic and systemic findings are typically limited to a low-grade fever. Cutaneous findings include large polycyclic, annular, erythematous wheals on the face, trunk, and extremities. The wheals may develop an ecchymotic or dusky center. Although the dusky appearance can be concerning for erythema multiforme, there are no true target lesions, blistering, or necrosis of the skin and/or mucous membranes. The lesions are often pruritic but not painful. Individual lesions typically do not last longer than 24 hours. Given the chronic use of patient's bipolar disorder medications and distrubution of the plaques drug related rash is less likely on our differential and lamotrigine is unlikely to be the cause, and can likely be restarted inpatient. ? As the patient has improved significantly with our initial recommendation of starting high dose prednisone and antihistamines we do favor a severe urticarial reaction and/or urticaria multiforme. Recommendations: - Continue Prednisone 100mg qD x 7 days total - Continue Cetirizine 3x a day and decrease to BID then once daily as patient improves - Continue Topical triamcinolone 0.1% all over the body even face BID - If worsening can consider adding on famotidine 20-40 mg/dose every 24 hours by mouth divided twice in resistant urticaria (or another H1/H2 olya) - Given potential urticarial vasculitis we recommended FELIZ, RF, CRP, Sed Rate, ANCA, hepatitis serologies, HIV, cryoglobulins, complement c3 c4. These labs can be followed up outpatient. - If patient is discharged should have followed-up in Dermatology clinic (not urgent) Thank you for this teledermatology consultation. Please do not hesitate to contact the dermatology resident/faculty concrete boom pump operator for any additional questions or concerns. Clinical photographs reviewed and case discussed with attending physician: Rubio Hernandez DO, MS PGY-2 Dermatology Resident [facility] 308:02 HPI Based on chart review and direct communication with consulting team - 42 y/o female h/o of bipolar 2, allergies including anaphylaxis to shellfish, rash w/ cephalosporins & penicillins, presenting with hives, itching, facial swelling, severe joint pain in her knees and arms, as well as significant dizziness with standing/ambulation. No intraoral or genital lesions. She was just seen in the [place] ED on the with suspected anaphylaxis to perfume. Notedsome itchiness and developed hives throughout her body which progressively worsened received steroids and Benadryl. However continued to sleep in the sheets w/ perfume spray on it and woke up with facial swelling and trouble breathing and AGAIN went to the [place] ER the was given epinephrine, steroids, Benadryl, famotidine and was transferred to [facility] where she was admitted and watched overnight for anaphylaxis and then discharged the next day with a week of steroids. PHYSICAL EXAM Clinical photographs of acceptable quality reviewed: Skin - skin type: medium fair - widespread urticaria on the legs, arms and edema of the face. Past Medical History: Patient Active Problem List Diagnosis Anaphylaxis, initial encounter Rash Polyarthralgia Medications: Current Facility-Administered Medications Medication Route Frequency acetaminophen tablet 650 mg Oral q4h prn polyethylene glycol 3350 (MIRALAX;GLYCOLAX) packet 17 g Oral daily famotidine (PEPCID) tablet 20 mg Oral hs predniSONE (DELTASONE) tablet 100 mg Oral daily diphenhydrAMINE (BENADRYL) capsule 50 mg Oral qid prn busPIRone (BUSPAR) tablet 10 mg Oral tid hydrOXYzine (ATARAX;VISTARIL) tablet 25 mg Oral tid GABApentin (NEURONTIN) capsule 300 mg Oral bid buPROPion (WELLBUTRIN XL) XL tablet 300 mg Oral daily citalopram (CeleXA) tablet 20 mg Oral daily mirtazapine (REMERON) tablet 7.5 mg Oral daily ARIPiprazole (ABILIFY) tablet 10 mg Oral daily pantoprazole (PROTONIX) tablet 40 mg Oral daily VTE prophylaxis contraindicated Does not apply protocol lamoTRIgine (LaMICtal) tablet 50 mg Oral daily sennosides-docusate sodium (STOOL SOFTENER/LAXATIVE) 8.6-50 mg tablet 2 tablet Oral bid valACYclovir (VALTREX) tablet 500 mg Oral daily cetirizine (ZyrTEC) tablet 10 mg Oral tid triamcinolone acetonide (KENALOG) 0.1 % ointment Topical bid albuterol (VENTOLIN HFA;PROVENTIL HFA;PROAIR) 108 (90 BASE) mcg/act inhaler 1-2 puff Inhalation q4hprn Faculty Note I evaluated patient on date of note. discussed with the resident and agree with the resident's findings and plan documented in the resident's note. Any revisions by me are documented. Rosaura Bergeron MD, 01/10/2023 7:18 AM documented in this encounter ED Notes * Leann Liu MD - 01/07/2023 3:00 PM CDT Transfer of Care Note Patient: Jennifer Tellez : 1980 Age: 42 y.o. female Sign out received from Emma Esparza PA-C. Please see original ED provider note for further details. PERTINENT HPI, PMH, & ED COURSE In brief, 42 y.o. female with a history of anaphylaxis to shellfish, rash w/ penicillins, rash w/ certain cephalosporins who presented to the emergency department with worsening hives, dizziness, andpolyarthralgia. She was unable to walk this morning 2/2 the pain and dizziness. She has been compliant with her medications but states she has continued to have severe diffuse hives and itching, and she feels like her facial swelling is worse today than it was when she discharged (but still better than how swollen it was Monday). She denies intraoral lesions, throat swelling, shortness of breath, chest pain, fever, n/v, abdominal pain. Polyarthralgia Hives, petechiae No other infectious symptoms ED Course Potassium 2.9, repletion ordered Work-UP Pending Patient admitted and signed out, awaiting bed placement FINAL ED COURSE, DISPOSITION, AND PLAN BP 120/78 Pulse (!) 111 Temp 36.9 ??C (98.5 ??F) (Oral) Resp (!) 24 SpO2 94% Upon assuming care, I reviewed the chart, results of studies performed during their course in the ED, re-examined the patient, and discussed their care and plan with my supervising attending. Upon reevaluation of the patient, patient's rash and swelling is unchanged from previous providers pictures. Patient said that she generally receives buspirone and hydroxyzine at home for anxiety and would like something for anxiety now. Patient was given one dose of her home buspirone. Shortly after, patient was transported to the floor without incident. Patient made hemodynamically stable. Final Clinical Impression 1. Anaphylaxis, initial encounter 2. Rash 3. Near syncope 4. Polyarthralgia 5. Petechiae 6. Hypokalemia Disposition and Plan Patient admitted to medicine pending further work-up and treatment Leann Liu MD, 01/07/2023 3:00 PM Emergency Medicine Resident PGY-1 Dictation Disclaimer: Some notes are completed with voice-recognition dictation software. As a result, there may be errors in the script that have gone undetected. Errors are generally corrected in real time. Please contact me via [employer] staff message if you note any errors requiring clarification. * Amy Martin RN - 01/07/2023 7:52 AM CDT Pt bb [facility] em[facility] from home with reports of worsening aching pain in knees, wrist. Pt was seen last Monday for an anaphylactic reaction to a body spray. Pt was admitted at that time. Now here for worsening sx's. Denies respiratory compromise. EMS placed #20 R hand PIV. Pt given 500ml NS, 50 mg IV benadryl and 15mg toradol. BS 109 BP 117/56 (Cuff Location: Left Arm, Patient Position: Lying Down) Pulse 91 Temp 36.9 ??C (98.5 ??F) (Oral) Resp 14 SpO2 96% * Emma Esparza PA-C - 01/07/2023 7:30 AM CDT Images from the original note were not included. ED Provider Note Jennifer Tellez : 1980 Sex: female Patient Arrival Date and Time: 01/07/2023 7:17 AM HPI Jennifer Tellez is a 42 y.o. female with significant past medical history of anaphylaxis to shellfish, rash w/ penicillins, rash w/ certain cephalosporins who presented to the emergency department with worsening hives, dizziness, and polyarthralgia. Patient first developed hives and itchiness on Monday night (one week ago). She went to the ER on Monday in [place] where she received steroids and benadryl. Rash continued, and she woke with facial swelling and trouble breathing on Wednesdayso she returned to the ER. She received epi, steroids, benadryl, and famotidine before transferringhere for a brief admission 01/04-. She was d/c'd with a week of prednisone and famotidine. She returns today because she is now experiencing severe joint pain in her knees and arms, as well as significant dizziness with standing/ambulation. She was unable to walk this morning 2/2 the pain and dizziness. She has been compliant with her medications but states she has continued to have severe diffuse hives and itching, and she feels like her facial swelling is worse today than it was when she discharged (but still better than how swollen it was Monday). She denies intraoral lesions, throat swelling, shortness of breath, chest pain, fever, n/v, abdominal pain. It was initially thought that this was all a reaction to a new body spray her friend gave her, but she states she has never been allergic to bath & body works sprays before. She does mention today that she was in a lai in [place] on Monday prior to onset, but she did not submerge her neck/head. She has been staying with her sister since d/c . MDM / ED Course Jennifer Tellez is a 42 y.o. female with significant past medical history of anaphylaxis to shellfish, rash w/ penicillins, rash w/ certain cephalosporins who presented to the emergency department with worsening hives, dizziness, and polyarthralgia. Ddx include erythema multiforme, SJS, anaphylaxis, duck schistosomiasis, Lyme disease, hepatitides, RMFS, and others.. Patient is normotensive, afebrile, not tachy/bradycardic, and satting 96% on RA with a regular respiratory rate and effort. On examination patient has diffuse urticaria to the lower extremities, upper extremities, chest, back, and neck/face. There are petechial changes surrounding some of the rash areas, particularly on the inner thighs. She is noted to have some swelling of the face. There is no evidence of intraoral swelling or lesions. There is no sloughing of the skin. Through the course of my shift patient had intermittent wheezing. She did receive 1 dose of IM epinephrine for wheezing as well as a DuoNeb with improvement. She developed wheezing later in the day and used her inhaler after which she reported resolution. She denied any sensation of throat or tongue swelling. It is concerning that despite all the interventions the patient has received 4 presumed allergic reaction she continues to have worsening symptoms as well as new onset polyarthralgias and dizziness. I suspect that there is another underlying disorder, and that this is not solely due to an allergic reaction. A broad work-up was initiated. CBC did show a mild leukocytosis of 13.09, but patient has been taking prednisone. Chemistry was notable for a potassium of 2.9, likely due to repeated DuoNeb treatments. This was replaced with 80meqoral and magnesium, with repeat potassium normal at 3.6. LFTs were within normal limits. Lipase waswithin normal limits. CRP was elevated to 7.47, and ESR was elevated to 25. Troponin was not elevated, and EKG without signs of acute ischemia. Low suspicion for cardiac source for the patient's dizziness. She has a number of labs in process including syphilis, Lyme, strep ASO, and blood cultures. We attempted to order a test for [place] spotted fever but were unable to identify an order for it. She received a total of 100 mg IV Benadryl between EMS and ourselves. She is having very difficult to control pruritus, we are now attempting Vistaril. She also received an IV dose of Solu-Medrol. Bedside cardiac ultrasound without pericardial effusion, decreased EF, B-lines. Patient has very poorly controlled symptoms with inability to ambulate secondary to pain and dizziness, as well as concernfor developing airway involvement, plan for admission to medicine with likely inpatient consults for infectious disease and dermatology. Her care was signed out to MD Alexa. Problems Addressed / DDx 1 acute or chronic illness or injury that poses a threat to life or bodilyfunction Data considered External notes reviewed and summarized, Tests Ordered, and Test result/interpretation reviewed with colleague Risk of patient management Decision regarding hospitalization IMPRESSION 1. Anaphylaxis, initial encounter 2. Rash 3. Near syncope 4. Polyarthralgia 5. Petechiae 6. Hypokalemia Pertinent Physical Exam findings: Physical Exam Vitals and nursing note reviewed. Constitutional: General: She is not in acute distress. Appearance: She is not diaphoretic. HENT: Head: Atraumatic. Mouth/Throat: Mouth: Mucous membranes are moist. Pharynx: Oropharynx is clear. Eyes: Extraocular Movements: Extraocular movements intact. Conjunctiva/sclera: Conjunctivae normal. Pupils: Pupils are equal, round, and reactive to light. Cardiovascular: Rate and Rhythm: Normal rate and regular rhythm. Pulses: Normal pulses. Pulmonary: Effort: Pulmonary effort is normal. No respiratory distress. Breath sounds: Normal breath sounds. Abdominal: Palpations: Abdomen is soft. Tenderness: There is no abdominal tenderness. Musculoskeletal: General: Normal range of motion. Cervical back: Normal range of motion. Skin: Comments: Diffuse urticarial rash to the extremities, chest, back, neck and face. Areas with petechial changes surrounding the rash, particularly in the inner thighs. Diffuse swelling of the face. Nointraoral lesions or swelling. No areas of drainage. Neurological: General: No focal deficit present. Mental Status: She is alert and oriented to person, place, and time. Sensory: No sensory deficit. Motor: No weakness. Psychiatric: Mood and Affect: Mood normal. Behavior: Behavior normal. Emma Esparza PA-C, 01/07/2023 5:22 PM * Jonathon Hale RN - 01/07/2023 7:18 AM CDT Bed: B05 Expected date: Expected time: Means of arrival: Comments: HEMS 444- allergic reaction documented in this encounter Miscellaneous Notes * Nursing Assessment - Sherry Shipman RN - 01/09/2023 2:40 PM CDT Nursing Assessment Head to Toe Head to Toe Assessment Shift Summary Patient is A&Ox4, able to make needs known.Call light within reach. Room air, denied pain/discomfort. No SOB or wheezing noted. Independent with cares and ambulation. Patient discharged to home at 14:40, discharge medications and AVS reviewed with a patient and given to the patient. Neurologic/Cognitive Within Defined Limits HEENT Within Defined Limits Cardiac Within Defined Limits Respiratory Within defined limits Neurovascular Within Defined Limits Gastrointestinal Within Defined Limits Genitourinary Within Defined Limits Musculoskeletal Musculoskeletal Integumentary Assessment Within Defined Limits except for: Skin Assessment Integrity - rashes Integrity Location - arms, BLE Patient Lines/Drains/Airways Status Active LDAs None Psychosocial Assessment Within Defined Limits except for: Psychosocial Assessment: Observed Patient Behaviors: Pleasant Verbalized Emotional State: Acceptance Family Behavior: not present * Nursing Assessment - Chel Mullen, RN - 01/09/2023 3:16 AM CDT Nursing Assessment Head to Toe Head to Toe Assessment Shift Summary Pt alert and oriented x 4 able to use call light and make needs known,independent able to turn self, swallows pills whole, pt requested Duoneb and ES Tylenol, Dr. Good notified given new order for one time Duoneb given by RT at 04:31 and Prn Tylenol 650 mg every 4 hours for Left hand pain tightness rated 3, and headache given at 04:50, sleeping intermittently, during the night, took a shower atapproximately 05:00. Will continue to follow plan of care. Neurologic/Cognitive Within Defined Limits HEENT Within Defined Limits Cardiac Within Defined Limits Respiratory Within defined limits Comments: On room air Neurovascular Within Defined Limits Gastrointestinal Within Defined Limits Genitourinary Within Defined Limits Musculoskeletal Within Defined Limits Integumentary Assessment Within Defined Limits except for: Skin Assessment Integrity - rashes Patient Lines/Drains/Airways Status Active LDAs None Psychosocial Psychosocial Assessment: Family Behavior: not present Comments: Cooperative * Nursing Assessment - George Gray RN - 01/08/2023 8:14 PM CDT Nursing Assessment Head to Toe Head to Toe Assessment Shift Summary Shift Summary:pt had episode of Asthma attack,having cough and shortness of breath she was requested Nebulizer which is not ordered,cross cover was paged urgent and came to pt room ordered Albuterol and was given as documented on a MAR on recheck pt was calm and breathing normal. Neurologic/Cognitive Within Defined Limits HEENT Within Defined Limits Cardiac Within Defined Limits Respiratory Assessment Within Defined Limits except for: Cough: Present Comments: Hx of Asthma Neurovascular Within Defined Limits Gastrointestinal Within Defined Limits Genitourinary Within Defined Limits Musculoskeletal Within Defined Limits Integumentary Assessment Within Defined Limits except for: Skin Assessment Color/Characteristics - redness, blanchable Moisture - dry Comments: Rash on her back,thigh,arms and legs Patient Lines/Drains/Airways Status Active LDAs None Psychosocial Within Defined Limits * Cross Cover - Katie Brandt DO - 01/08/2023 7:49 PM CDT Cross cover Paged by RN that patient having an asthma attack. Evaluated patient at bed side. Appeared tachypneic and she had administered home inhaler prior to my arrival. Complaining of persistent itching. Ordered duoneb Started Prednisone 100mg per derm recommendations Given Benadryl Started Famotidine per derm On recheck appears well and comfortable in bed without any acute respiratory distress. Asked night team to check in later. Katie Brandt DO, 01/08/2023 9:40 PM * Interval Note Provider - Shelli Hernandez MD - 01/08/2023 11:14 AM CDT INTERVAL DERMATOLOGY NOTE: Consulting team: Medicine consulted on 01/07/23 [facility]: Urticarial vs morbilliform rash and to restart lamotrigine History obtained from chart review and resident Dr. Saldaña: 42 y/o female h/o of bipolar 2, allergies including anaphylaxis to shellfish, rash w/ cephalosporins & penicillins, presenting with hives, itching, facial swelling, severe joint pain in her kneesand arms, as well as significant dizziness with standing/ambulation. No intraoral or genital lesions. She was just seen in the [place] ED on the with suspected anaphylaxis to perfume. Noted some itchiness and developed hives throughout her body which progressively worsened received steroidsand Benadryl. However continued to sleep in the sheets w/ perfume spray on it and woke up with facial swelling and trouble breathing and AGAIN went to the [place] ER the was given epinephrine, steroids, Benadryl, famotidine and was transferred to [facility] where she was admitted and watched overnight for anaphylaxis and then discharged the next day with a week of steroids. PE: Patient not assessed at bedside. Labs and media photos reviewed with attending Dr. Bergeron A/P: 42 y/o female recently admitted for anaphylaxis p/w urticarial race, facial edema and polyarthralgia, elevated CRP and ESR, negative hep serologies, and negative infectious symptoms. #Widespread urticarial papules and plaques with facial edema #Polyarthralgia Given history and urticarial like lesions from media. Our differential at this time includes SevereUrticarial Reaction, Urticaria Multiforme vs Urticarial Vasculitis iso potential autoimmune dz, paraneoplastic vs possibly infection. Urticaria multiforme represents a morphologic subset of urticarial reactions. It is a common, benign hypersensitivity reaction mediated by histamine that predominantly affects children between 4 months and 4 years of age. This entity often manifests after a preceding illness, medication exposure, or vaccination. It can be mistaken for more concerning entities, namely erythema multiforme or serum sickness. On physical exam, patients appear nontoxic and systemic findings are typically limited to a low-grade fever. Cutaneous findings include large polycyclic, annular, erythematous wheals on the face, trunk, and extremities. The wheals may develop an ecchymotic or dusky center. Although the dusky appearance can be concerning for erythema multiforme, there are no true target lesions, blistering, or necrosis of the skin and/or mucous membranes. The lesions are often pruritic but not painful. Individual lesions typically do not last longer than 24 hours. Given the chronic use of patient's bipolar disorder medications and distrubution of the plaques drug related rash is less likely on our differential and lamotrigine is unlikely to be the cause, and can likely be restarted inpatient. ? As the patient has improved significantly with our initial recommendation of starting high dose prednisone and antihistamines we do favor a severe urticarial reaction and/or urticaria multiforme. Recommendations: - Start Prednisone 100mg qD x 7 days total - Continue Cetirizine 3x a day and decrease to BID then once daily as patient improves - Continue Topical triamcinolone 0.1% all over the body even face BID - If worsening can consider adding on famotidine 20-40 mg/dose every 24 hours by mouth divided twice in resistant urticaria (or another H1/H2 olya) - Given potential urticarial vasculitis we recommended FELIZ, RF, CRP, Sed Rate, ANCA, hepatitis serologies, HIV, cryoglobulins, complement c3 c4. These labs can be followed up outpatient. - If patient is discharged should have followed-up in Dermatology clinic (not urgent) Please let us know if you have any questions. Dermatology will see the patient Monday if the patient is still admitted. We will continue to follow-up on the lab. Shelli Hernandez DO, MS PGY-2 Dermatology Resident [facility] 01/08/23 11:37 * Nursing Assessment - Tammy Michael, [place] - 01/08/2023 9:58 AM CDT Nursing Assessment Head to Toe Head to Toe Assessment Shift Summary Shift Summary Pt c/o overall itching from rash.Benadryl 50 mg oral given x 2 with relief. Neurologic/Cognitive Within Defined Limits HEENT Within Defined Limits Cardiac Within Defined Limits Respiratory Within defined limits Neurovascular Within Defined Limits Gastrointestinal Within Defined Limits Genitourinary Within Defined Limits Musculoskeletal Within Defined Limits Integumentary Assessment Within Defined Limits except for: Skin Assessment Integrity - rashes Integrity Location - all over body Patient Lines/Drains/Airways Status Active LDAs Name Placement date Placement time Site Days Peripheral IV 01/07/23 20 gauge Posterior;Right Hand 01/07/23 0720 -- 1 Psychosocial Within Defined Limits * Nursing Assessment - George Gray RN - 01/08/2023 12:41 AM CDT Nursing Assessment Head to Toe Head to Toe Assessment Shift Summary Shift Summary:pt was with out event over night,she was denied any pain or discomfort and she was sleeping comfortably. Neurologic/Cognitive Within Defined Limits HEENT Within Defined Limits Cardiac Within Defined Limits Respiratory Within defined limits Neurovascular Within Defined Limits Gastrointestinal Within Defined Limits Genitourinary Within Defined Limits Musculoskeletal Within Defined Limits Integumentary Assessment Within Defined Limits except for: Skin Assessment Color/Characteristics - redness, blanchable Moisture - dry Comments: Rash on her back,thigh,arms and legs Patient Lines/Drains/Airways Status Active LDAs Name Placement date Placement time Site Days Peripheral IV 01/07/23 20 gauge Posterior;Right Hand 01/07/23719 -- less than 1 Psychosocial Within Defined Limits * Nursing Assessment - George Gray RN - 01/07/2023 6:36 PM CDT Nursing Assessment Head to Toe Head to Toe Assessment Shift Summary Shift Summary:pt was admitted from ED to [facility] R#[id number],pt is A&O,up independent,pt was comforted to her room,routine admission was completed and ordered medication was administered,pt was ate 100% of her supper and she denied any pain or discomfort. Neurologic/Cognitive Within Defined Limits HEENT Within Defined Limits Cardiac Within Defined Limits Respiratory Within defined limits Neurovascular Within Defined Limits Gastrointestinal Within Defined Limits Genitourinary Within Defined Limits Musculoskeletal Within Defined Limits Integumentary Assessment Within Defined Limits except for: Skin Assessment Color/Characteristics - redness, blanchable Moisture - dry Comments: Rash on her back,thigh,arms and legs Patient Lines/Drains/Airways Status Active LDAs Name Placement date Placement time Site Days Peripheral IV 01/07/23 20 gauge Posterior;Right Hand 01/07/23719 -- less than 1 Psychosocial Within Defined Limits * Interval Note Provider - Rubén Valentino MBBS - 01/07/2023 1:54 PM CDT Handoff Communication Note for Hospital Admission Verbal handoff received from Emma in ED. Patient Class: Inpatient Cardiac Monitoring: Not needed Brief summary of handoff from ED/Clinic Staff: Patient is a 42-year-old female with history of anaphylaxis to shellfish, rash with penicillin, rash cephalosporins presented to the ED with worsening hives, dizziness and polyarthralgia. Patient first developed hives and itchiness 1 week ago and went to ER in [place] where she received steroids and Benadryl. Rash continued and patient woke up with facial swelling and trouble breathing so she returned to the ER and received epi, steroids, Benadryl and famotidine before transferring to [facility] for brief admission 01/04-. She was discharged with 1 week course of prednisone and famotidine but returned today because of severe joint pain in her knees and arms, dizziness with standing/ambulation. Denies any intraoral lesions, throat swelling, shortness of breath, chest pain, fever,N/V, abdominal pain. Given history of using reaction to new body spray from the [employer]. Also mentioning visiting or tongue [place] Monday but did not submerge her neck or head. In the ED patient had a normal EKG, bedside ultrasound, low potassium(which was replaced) and elevated WBC, C-reactive protein and ESR. Patient received Benadryl, Solu-Medrol, DuoNeb, mag for wheezing and epinephrine. IP admit order will be placed in accordance with the patient class designation above. Please page the BMS Team via Highlight with clinical updates or status changes. Note is for documentation only and not for billing purposes. Rubén Valentino MBBS, 01/07/2023 1:54 PM * Utilization Management - Henna Higginbotham RN - 01/07/2023 10:53 AM CDT INITIAL REVIEW Admit: anaphylaxis Rec: OB Continued issues since last Monday's admission for reach to body spray - epi x1 * ED Faculty Note - Leeann Bain MD - 01/07/2023 8:37 AM CDT Images from the original note were not included. ED Faculty Attestation and Note Jennifer Tellez : 1980 Sex: female Patient Arrival Date and Time: 01/07/2023 7:17 AM FACULTY ATTESTATION I Leeann Bain MD, personally saw the patient, performed critical or oliva portions of the service, and discussed the care with the Advanced Practice Provider. MDM / ED Course Jennifer Tellez presented to the emergency department with worsening polyarthralgias, rash, with new onset petechiae. See images in media folder. ED Course as of 01/07/23 0844 Sat Jan 07, 2023 0837 Epinephrine given for anaphylaxis. Diffuse urticaria and now with wheezing. Symptoms improved rapidly with treatment. 0844 I reviewed Jennifer's past medical history including the discharge summary from 2 days ago on January 05. She is a 43-year-old female with past medical history of bipolar 2 disorder, allergy to shellfish, rash to penicillins, rash to certain cephalosporins who presented to the emergency department on January 04 for a diffuse urticarial rash and was admitted for recurrent anaphylactic symptoms and discharged the next day. She got out of the environment that she was in during that episode and went and stayed with her sister. The symptoms have since worsened and have spread. She is also now developed polyarthralgia and is unable to walk because of the pain. On exam today she has diffuse urtic aria including the scalp, neck, trunk, back, buttocks, legs, but sparing the palms and soles. They do not appear to be any lesions in the mouth. Concerningly, there is some petechial changes to the border of several of the urticarial lesions. Many of the urticarial lesions appear palisaded as well. Differential diagnosis includes erythema multiforme, SJS, anaphylaxis, duck schistosomiasis (admitsnow that she was also in a lai in [place] prior to developing the rash), Lyme disease, hepatitides, and others. Given the development of polyarthralgia and inability to ambulate due to pain becauseof this, we will plan broad work-up as ordered and admit. During her presentation today she developed wheezing and throat tightness and was treated with IM anaphylactic dose epinephrine as well as ongoing IV Benadryl and Solu-Medrol. She will need to be admitted for ongoing cares and continued work-up of this unclear pathology. Ultimately planned admission, consulting ID given potential for vasculitic infections causing theselesions. Considered RMSF but cannot access order for this serology. IMPRESSION 1. Anaphylaxis, initial encounter 2. Rash 3. Near syncope 4. Polyarthralgia 5. Petechiae Upon my evaluation, this patient had a high probability of imminent life or limb-threatening deterioration due to anaphylaxis, recurrent, which required my highest level of preparedness to intervene emergently, and I spent this critical care time directly and personally managing the patient. I have personally provided 30 minutes of critical care time exclusive of time spent on separately billable procedures, treating other patients, or teaching time. Time includes obtaining history, reviewing medical records, examining the patient, ordering and review of studies, fluid resuscitation, pharmacotherapy including IM epinephrine 0.3mg, IV solu-medrol, multiple doses of IV diphenhydramine,pulse oximetry, review of laboratory data, frequent reassessment, monitoring for potential decompensation, and admission. This critical care time was performed to assess and manage the high probability of imminent deterioration that could result in respiratory failure, cardiac faliure, neurologic disability, shock, multisystem organ failure, and . Trauma Team: Not activated. The patient was signed out to Dr. Mccormick for ongoing management and planned admission to medicine with ID consult. Leeann Bain MD, 01/07/2023 8:37 AM documented in this encounter Plan of Treatment Scheduled Referrals Name Type Priority Associated Diagnoses Orde r Schedule REFERRAL TO DERMATOLOGY Referral Routine Rash Anaphylaxis, initial encounter Ordered: 01/09/2023 REFERRAL TO INTERNAL MEDICINE Referral Routine Asthma, unspecified asthma severity, unspecified whether complicated, unspecified whether persistent Ordered: 01/09/2023 documented as of this encounter Procedures Procedure Name Priority Date/Time Associated Diagnosis Comments PANEL BASIC METABOLIC (BMP) Routine 01/09/2023 7:05 AM CDT TC LAB BLOOD DRAW BY VENIPUNCTURE Routine 01/09/2023 7:05 AM CDT PC LAB MPO (ANCA) ANTIBODIES Routine 01/08/2023 9:22 AM CDT PC LAB NUCLEAR ANTIBODY FELIZ IGG Routine 01/08/2023 9:12 AM CDT PC HEPATITIS C Routine 01/08/2023 9:12 AM CDT RHEUMATOID FACTOR Routine 01/08/2023 9:1 2 AM CDT PANEL BASIC METABOLIC (BMP) Routine 01/08/2023 9:12 AM CDT HEPATITIS B SURFACE ANTIGEN Routine 01/08/2023 9:12 AM CDT HEPATITIS B SURFACE ANTIBODY Routine 01/08/2023 9:12 AM CDT PC LAB CBC/PLT Routine 01/08/2023 9:12 AM CDT COMPLEMENT C4 Routine 01/08/2023 9:12 AM CDT COMPLEMENT C3 Routine 01/08/2023 9:12 AM CDT PC HIV-1 AG W/HIV-1 & HIV-2 AB Routine 01/07/2023 10:18 PM CDT PC POTASSIUM;SERUM STAT 01/07/2023 1: 10 PM CDT LYME ANTIBODY SCREEN WITH REFLEX TO IGM/IGG BY AYANA (MODIFIED TWO TIER TESTING) STAT 01/07/2023 8:11 AM CDT PC TROPONIN QUANTITATIVE STAT 023 8:11 AM CDT PC ELECTROLYTES PANEL STAT 01/07/2023 8:11 AM CDT TC LAB BLOOD DRAW BY VENIPUNCTURE Routine 01/07/2023 8:11 AM CDT SED RATE (ESR) STAT 01/07/2023 8:11 AM CDT PC SYPHILIS SCREEN STAT 01/07/2023 8: 11 AM CDT MAGNESIUM STAT 01/07/2023 8:11 AM CDT LIPASE STAT 01/07/2023 8:11 AM CDT PANEL HEPATIC FUNCTION STAT 8:11 AM CDT PC LAB GLYCOSYLATED HGB Routine 01/08/20 8:11 AM CDT C-REACTIVE PROTEIN - HS STAT 01/08/20 8:11 AM CDT CBC WITH PLATELET STAT 01/07/2023 8:1 1 AM CDT PC CULTURE,BACTERIAL,DEFINA TIVE,AEROBIC;BLOOD STAT 01/07/2023 8:11 AM CDT PC CULTURE,BACTERIAL,DEFINA TIVE,AEROBIC;BLOOD STAT 01/07/2023 8:11 AM CDT ANTISTREPTOLYSIN O BLANCA (ASO) STAT 01/07/2023 8:11 AM CDT ED EKG (12-LEAD) Routine 01/07/2023 8:06 AM CDT ED US CARDIAC STAT 01/07/2023 7:57 AM CDT documented in this encounter Results * PANEL BASIC METABOLIC (BMP) (01/09/2023 7:05 AM CDT) Sodium 137 135 - 148 mEq/L [facility] Potassium 3.5 3.5 - 5.3 mEq/L [facility] Chloride 100 92 - 108 mEq/L [facility] CO2 27 22 - 30 mEq/L [facility] AnGap 10 8 - 16 mEq/L [facility] Glucose 80 70 - 100 mg/dL [facility] BUN 16 6 - 20 mg/dL [facility] Creatinine 0.89 0.50 - 1.00 mg/dL [facility] Calcium 9.3 8.6 - 10.0 mg/dL [facility] eGFR (2020 CKD-EPI) 83 >=60 ml/min/1.7 3m2 [facility] Comment: The estimated glomerular filtration rate (eGFR) was calculated using the CKD-EPI 2020 creatinine equation, which does not include race as a factor. This equation is validated in individuals 18 years of age and older, and eGFR is normalized to a body surface area of 1.73m^2. Blood 01/09/2023 7:05 AM CDT 01/09/2023 7:38 AM CDT Sudhakar Koenig MD LABORATORY Performing Organization Address [facility] Co de Phone Number [facility] [address] [address] * (ABNORMAL) CBC WITH PLATELET (01/09/2023 7:05 AM CDT) WBC 19.87(H) 4.00 - 10.00 k/cmm [facility] RBC 4.31 3.90 - 5.20 m/cmm [facility] Hgb 11.7 11.5 - 15.7 g/dL [facility] Hematocrit 36.1 34.0 - 45.0 % [facility] MCV 83.8 80.0 - 100.0 fL [facility] MCH 27.1 25.0 - 32.0 pg [facility] MCHC 32.4 31.0 - 36.0 g/dL [facility] RDW 13.5 11.5 - 14.5 % [facility] Plt 402(H) 150 - 400 k/cmm [facility] MPV 8.8 6.5 - 12.5 fL [facility] NRBC 0.1(H) 0.0 - 0.0 % [facility] Blood 01/09/2023 7:05 AM CDT 01/09/2023 7:38 AM CDT Sudhakar Koenig MD LABORATORY Performing Organization Address [facility] Co de Phone Number [facility] [address] [address] * ANCA-ASSOCIATED VASCULITIS PROFILE (ANCA/MPO/PR3) (01/08/2023 9:22 AM CDT) ANCA IFA Pattern None Detected None Detected [facility] Comment: INTERPRETIVE INFORMATION: ANCA IFA Pattern Neutrophil Cytoplasmic Antibodies (C-ANCA = granular cytoplasmic staining, P-ANCA = perinuclear staining) are found in the serum of over 90 percent of patients with certain necrotizing systemic vasculitides, and usually in less than 5 percent of patients with collagen vascular disease or arthritis. Performed By: [facility] [address] [place] [address] Honing Machine Set Up Operator: Alex Chau MD, PhD CLIA Number: [id number] ANCA IFA Titer <1:20 <1:20 [facility] Myeloperox Antibody 0 0 - 19 AU/ml [facility] Comment: INTERPRETIVE INFORMATION: Myeloperoxidase Abs, IgG ??19 AU/mL or Less ......... Negative ??20-25 AU/mL .............. Equivocal ??26 AU/mL or Greater ...... Positive Approximately 90% of patients with a P-ANCA pattern by IFA have antibodies specific for MPO. Serine Protease 3 0 0 - 19 AU/ml [facility] Comment: INTERPRETIVE INFORMATION: Serine Proteinase 3, IgG ??19 AU/mL or Less ........ Negative ??20-25 AU/mL ............. Equivocal ??26 AU/mL or Greater ..... Positive Approximately 85% of patients with a C-ANCA pattern by IFA have antibodies specific for PR3. Blood 01/08/2023 9:22 AM CDT 01/08/2023 9:51 AM CDT Sudhakar Koenig MD LABORATORY [address] [address], * HEPATITIS B SURFACE ANTIGEN (01/08/2023 9:12 AM CDT) HBV Surface Ag Nonreactive Nonreactive [facility] Comment: Testing performed at: [facility] [address] [address] Blood 01/08/2023 9:12 AM CDT 01/08/2023 9:46 AM CDT Sudhakar Koenig MD LABORATORY [facility] [address] [address] * HEPATITIS B SURFACE ANTIBODY (01/08/2023 9:12 AM CDT) HBsAb Interpretation Reactive [facility] Comment:Reactive implies imm unity. Blood 01/08/2023 9:12 AM CDT 01/08/2023 9:46 AM CDT Sudhakar Koenig MD LABORATORY Performing Organization Address [facility] Co de Phone Number [facility] [address] [address] * (ABNORMAL) PANEL BASIC METABOLIC (BMP) (01/08/2023 9:12 AM CDT) Pathologist [facility] Sodium 138 135 - 148 mEq/L [facility] Potassium 4.3 3.5 - 5.3 mEq/L [facility] Chloride 101 92 - 108 mEq/L [facility] CO2 24 22 - 30 mEq/L [facility] AnGap 13 8 - 16 mEq/L [facility] Glucose 104(H) 70 - 100 mg/dL [facility] BUN 11 6 - 20 mg/dL [facility] Creatinine 0.70 0.50 - 1.00 mg/dL [facility] Calcium 9.4 8.6 - 10.0 mg/dL [facility] eGFR (2020 CKD-EPI) 111 >=60 ml/min/1.7 3m2 [facility] Comment: The estimated glomerular filtration rate (eGFR) was calculated using the CKD-EPI 2020 creatinine equation, which does not include race as a factor. This equation is validated in individuals 18 years of age and older, and eGFR is normalized to a body surface area of 1.73m^2. Blood 01/08/2023 9:12 AM CDT 01/08/2023 9:46 AM CDT Sudhakar Koenig MD LABORATORY Performing Organization Address [facility]/ZIP Co de Phone Number [facility] [address] [address] * (ABNORMAL) CBC WITH PLATELET (01/08/2023 9:12 AM CDT) WBC 18.86(H) 4.00 - 10.00 k/cmm [facility] RBC 4.43 3.90 - 5.20 m/cmm [facility] Hgb 12.1 11.5 - 15.7 g/dL [facility] Hematocrit 36.7 34.0 - 45.0 % [facility] MCV 82.8 80.0 - 100.0 fL [facility] MCH 27.3 25.0 - 32.0 pg [facility] MCHC 33.0 31.0 - 36.0 g/dL [facility] RDW 13.5 11.5 - 14.5 % [facility] Plt 402(H) 150 - 400 k/cmm [facility] MPV 8.9 6.5 - 12.5 fL [facility] Blood 01/08/2023 9:12 AM CDT 01/08/2023 9:43 AM CDT Sudhakar Koenig MD LABORATORY Performing Organization Address [place]/[facility] Co de Phone Number [facility] [address] [place] [phone] * COMPLEMENT C4 (01/08/2023 9:12 AM CDT) C4 17 13 - 39 mg/dL [facility] Blood 01/08/2023 9:12 AM CDT 01/08/2023 9:46 AM CDT Sudhakar Koenig MD LABORATORY Performing Organization Address [place]/[facility]/ZIP Co de Phone Number [facility] [address] [place] [address] * COMPLEMENT C3 (01/08/2023 9:12 AM CDT) C3 144 81 - 157 mg/dL [facility] Blood 01/08/2023 9:12 AM CDT 01/08/2023 9:46 AM CDT Sudhakar Koenig MD LABORATORY [facility] [address] [address] * HEPATITIS C ANTIBODY WITH CONDITIONAL PCR (01/08/2023 9:12 AM CDT) Hep C Blanca Nonreactive Nonreactive [facility] Comment:Performance characte ristics have not been established with this test on patients less than 10 years of age. Blood 01/08/2023 9:12 AM CDT 01/08/2023 9:46 AM CDT Sudhakar Koenig MD LABORATORY Performing Organization Address [place]/[facility] Co de Phone Number [facility] [address] [address] * RHEUMATOID FACTOR (01/08/2023 9:12 AM CDT) Pathologist [facility] Rheumotoid Factor <7 <=13 IU/mL [facility] Rheum Factor Interp Negative Negative [facility] Blood 01/08/2023 9:12 AM CDT 01/08/2023 9:46 AM CDT Sudhakar Koenig MD LABORATORY Performing Organization Address [facility] Co de Phone Number [address] [address] * FELIZ SCREEN(NUCLEAR ANTIBODY IGG) (01/08/2023 9:12 AM CDT) Pathologist [facility] Nuclear Antibody IGG <1:80 <1:80 [facility] Nuclear Antibody Pattern See Note [facility] Comment: Antinuclear antibodies by IFA negative for homogeneous, speckled, nucleolar, centromere, and nuclear dots patterns. Cytoplasmic antibodies by IFA negative for reticular/AMA, discrete/GW body-like, polar/golgi-like, rods and rings, and cytoplasmic speckled patterns. INTERPRETIVE INFORMATION: FELIZ Interpretive Comment Presence of antinuclear antibodies (FELIZ) is a hallmark feature of systemic autoimmune rheumatic diseases (SARD). However, FELIZ lacks diagnostic specificity and is associated with a variety of diseases (cancers, autoimmune, infectious, and inflammatory conditions) ??and may also occur in healthy individuals in varying prevalence. The lack of diagnostic specificity requires confirmation of positive FELIZ by more specific serologic tests. FELIZ (nuclear reactivity) positive patterns reported include centromere, homogeneous, nuclear dots, nucleolar, or speckled. FELIZ (cytoplasmic reactivity) positive patterns reported include reticular/AMA, discrete/GW body-like, polar/golgi-like, cytoplasmic speckled or rods and rings. All positive patterns are reported to endpoint titers (1:2560). Reported patterns may help guide differential diagnosis, although they may not be specific for individual antibodies or diseases. Mitotic staining patterns not reported. ??Negative results do not necessarily rule out SARD. Performed By: [facility] [address] [place] [address] Honing Machine Set Up Operator: Alex Chau MD, PhD CLIA Number: [id number] NUCLEAR ANTIBODY (FELIZ) IGG NOTES: WHEN OBSERVED, ONE OF THE FIVE BASIC PATTERNS IS REPORTED: HOMOGENEOUS, PERIPHERAL/RIM, SPECKLED, CENTROMERE OR NUCLEOLAR. IF CYTOPLASMIC FLUORESCENT IS OBSERVED, IT IS NOTED. TEST PERFORMED BY: [facility] [address] [place] [address] Serum 01/08/2023 9:12 AM CDT 01/08/2023 10:01 AM CDT Sudhakar Koenig MD LABORATORY [email or web address] [address] [place] [id number], * HIV COMBO (01/07/2023 10:18 PM CDT) Pathologist [facility] HIV Antigen-Antibody Nonreactive Nonreactive [facility] Comment:Performance characte ristics have not been established with this test on patients less than 2 years of age. Blood 01/07/2023 10:1 8 PM CDT 01/07/2023 10:46 PM CDT Sudhakar Koenig MD LABORATORY [facility] [address] [address] * ED POTASSIUM (01/07/2023 1:10 PM CDT) Potassium 3.6 3.5 - 5.3 mEq/L [facility] Blood 01/07/2023 1:10 PM CDT 01/07/2023 1:23 PM CDT Emma Esparza PA-C LABORATORY Performing Organization Address [facility] de Phone Number [facility] [address] [address] * (ABNORMAL) GLYCOSYLATED HGB - A1C (01/07/2023 8:11 AM CDT) Hemoglobin A1C 5.7(H) 4.0 - 5.6 % [facility] Comment: Increased risk for diabetes (prediabetes): 5.7-6.4% Diabetes: greater than or equal to 6.5% * * In the absence of unequivocal hyperglycemia, diagnosis requires two abnormal test results (i.e. HbA1c and glucose) or two abnormal results from specimens collected at two different timepoints. Estimated Average Glucose 117 68 - 126 [facility] Comment: The ADA recommends reporting an estimated Average Glucose (eAG) with all hemoglobin A1c results using the equation derived from a study of 501 normal diabetic adults. Minority populations were underrepresented and children were not included. The EAG is not equivalent to a fasting glucose. Blood 01/07/2023 8:11 AM CDT 01/07/2023 10:02 AM CDT Leeann Bain MD LABORATORY Performing Organization Address City/[facility] Co de Phone Number [facility] [address] [address] * (ABNORMAL) CBC WITH PLTS/AUTO DIFF (01/07/2023 8:11 AM CDT) WBC 13.09(H) 4.00 - 10.00 k/cmm [facility] RBC 4.99 3.90 - 5.20 m/cmm [facility] Hgb 13.6 11.5 - 15.7 g/dL [facility] Hematocrit 41.4 34.0 - 45.0 % [facility] MCV 83.0 80.0 - 100.0 fL [facility] MCH 27.3 25.0 - 32.0 pg [facility] MCHC 32.9 31.0 - 36.0 g/dL [facility] RDW 13.2 11.5 - 14.5 % [facility] Plt 422(H) 150 - 400 k/cmm [facility] MPV 9.3 6.5 - 12.5 fL [facility] Automated Abs Neutrophil 10.07(H) 1.70 - 6.50 k/cmm [facility] Comment:Preliminary ANC, Fin al Result to Follow Abs Immature Granulocyte 0.12(H) 0.00 - 0.09 k/cmm [facility] Comment:The Immature Granulo cyte Absolute count contains metamyelocytes and myelocytes. Abs Neutrophil 10.07(H) 1.70 - 6.50 k/cmm [facility] Abs Lymphocyte 2.55 0.80 - 4.00 k/cmm [facility] Abs Monocyte 0.24 0.20 - 1.00 k/cmm [facility] Abs Eosinophil 0.09 0.00 - 0.60 k/cmm [facility] Abs Basophil 0.02 0.00 - 0.20 k/cmm [facility] Blood 01/07/2023 8:11 AM CDT 01/07/2023 9:59 AM CDT Leeann Bain MD LABORATORY [facility] [address] [address] * MAGNESIUM (01/07/2023 8:11 AM CDT) Magnesium 2.0 1.6 - 2.6 mg/dL [facility] Blood 01/07/2023 8:11 AM CDT 01/07/2023 8:59 AM CDT Leeann Bain MD LABORATORY [facility] [address] [address] * HS TROPONIN (01/07/2023 8:11 AM CDT) HS Troponin I <3 <=14 ng/L [facility] Blood 01/07/2023 8:11 AM CDT 01/07/2023 8:59 AM CDT Narrative [facility] - 01/07/2023 9:35 AM CDT First Occurrence of the Troponin order is to be drawn Stat by Nursing staff on the unit. Leeann Bain MD LABORATORY Performing Organization Address City/[facility]/ZIP Co de Phone Number [facility] [address] [address] * RPR SYPHILIS SCREEN (01/07/2023 8:11 AM CDT) RPR Screen Non-Reactive Non-Reacti ve [facility] RPR Titer Not Reflexed [facility] Blood 01/07/2023 8:11 AM CDT 01/07/2023 9:00 AM CDT Leeann Bain MD LABORATORY Performing Organization Address [facility] Co de Phone Number [facility] [address] [address] * BLOOD AEROBIC/ANAEROBIC CULTURE (01/07/2023 8:11 AM CDT) Final Report No growth after 5 days. [facility] Blood (Peripheral) 01/07/2023 8:11 AM CDT 01/07/2023 9:39 AM CDT Narrative [facility] - 01/13/2023 8:01 AM CDT Blood volume less than 5 mL. Culture results may be compromised. Suggest repeat collection. Leeann Bain MD LAB MICROBIOLOGY Performing Organization Address [facility] Co de Phone Number [address] [address] * BLOOD AEROBIC/ANAEROBIC CULTURE (01/07/2023 8:11 AM CDT) Final Report No growth after 5 days. [facility] Blood (Peripheral) 01/07/2023 8:11 AM CDT 01/07/2023 5:56 PM CDT Narrative [facility] - 01/13/2023 8:01 AM CDT collected at 1530 01/07/2023 15:38:20 [facility] Blood volume less than 5 mL. Culture results may be compromised. Suggest repeat collection. Leeann Bain MD LAB MICROBIOLOGY [facility] [address] [address] * ANTISTREPTOLYSIN O BLANCA (ASO) (01/07/2023 8:11 AM CDT) ASO Blanca <55 <=330 IU/mL [facility] Comment: REFERENCE INTERVAL: Streptolysin O Antibody Elevated titers of antideoxyribonuclease B antibody (anti-DNase B) or antistreptolysin O antibody (ASO) indicate a recent group A Streptococcus infection. Anti-DNase B antibodies typically remain elevated longer than ASO and may remain elevated for several months after infection. Patients suspected of having complications related to a recent Streptococcus infection such as acute glomerulonephritis or acute rheumatic fever may have elevated anti-DNase B but normal ASO antibody titers. A negative or very low anti-DNase B and ASO antibody titers, especially from a specimen tested 2 weeks after a suspected infection, indicates unlikely incidence of a recent Streptococcus infection. Performed By: [facility] [address] [place] [address] [employer]ing Machine Set Up Operator: Alex Chau MD, PhD CLIA Number: [id number] Serum 01/07/2023 8:11 AM CDT 01/07/2023 8:59 AM CDT Leeann Bain MD LABORATORY Performing Organization Address City/[facility]/ZIP Co de Phone Number [facility] [address] [place] [address], * LIPASE (01/07/2023 8:11 AM CDT) Lipase 15 13 - 60 IU/L [facility] Blood 01/07/2023 8:11 AM CDT 01/07/2023 8:59 AM CDT Leeann Bain MD LABORATORY Performing Organization Address [facility] de Phone Number [facility] [address] [address] * (ABNORMAL) PANEL HEPATIC FUNCTION (01/07/2023 8:11 AM CDT) Total Protein 6.0(L) 6.4 - 8.3 g/dL [facility] Albumin 3.5(L) 3.8 - 5.1 g/dL [facility] Bili Total 0.3 <=1.2 mg/dL [facility] Bili Direct <0.2 <=0.3 mg/dL [facility] Alk Phos 78 35 - 104 IU/L [facility] ALT (SGPT) 21 <=33 IU/L [facility] AST(SGOT) 18 5 - 40 IU/L [facility] Blood 01/07/2023 8:11 AM CDT 01/07/2023 8:59 AM CDT Leeann Bain MD LABORATORY Performing Organization Address [facility] de Phone Number [facility] [address] [address] * LYME ANTIBODY SCREEN WITH REFLEX TO IGM/IGG BY AYANA (MODIFIED TWO TIER TESTING) (01/07/2023 8:11 AM CDT) B. burgdorferi VlsE1/pepC10 Abs, AYANA 0.62 <=0.90 IV [facility] Comment: When the Borrelia burgdorferi VlsE1/pepC10 Abs, by AYANA result is negative no further testing is done. REFERENCE INTERVAL: B. burgdorferi VlsE1/pepC10 Abs, AYANA 0.90 IV or less..........Negative: VlsE1 and pepC10 ?antibodies to B. burgdorferi ?not detected. 0.91 - 1.09 IV...........Equivocal: Repeat testing in ?10-14 days may be helpful. 1.10 IV or greater.......Positive: VlsE1 and pepC10 ?antibodies to B. burgdorferi ?detected. Performed By: [facility] [address] [place] [address] [employer]ing Machine Set Up Operator: Alex Chau MD, PhD CLIA Number: [id number] Serum 01/07/2023 8:11 AM CDT 01/07/2023 8:59 AM CDT Leeann Bain MD LABORATORY Performing Organization Address City/State/[facility] Co de Phone Number [facility] [address] [place] [address], * (ABNORMAL) CBC WITH PLATELET (01/07/2023 8:11 AM CDT) WBC 13.17(H) 4.00 - 10.00 k/cmm [facility] RBC 4.93 3.90 - 5.20 m/cmm [facility] Hgb 13.4 11.5 - 15.7 g/dL [facility] Hematocrit 40.5 34.0 - 45.0 % [facility] MCV 82.2 80.0 - 100.0 fL [facility] MCH 27.2 25.0 - 32.0 pg [facility] MCHC 33.1 31.0 - 36.0 g/dL [facility] RDW 13.2 11.5 - 14.5 % [facility] Plt 407(H) 150 - 400 k/cmm [facility] MPV 8.8 6.5 - 12.5 fL [facility] Blood 01/07/2023 8:11 AM CDT 01/07/2023 9:00 AM CDT Leeann Bain MD LABORATORY Performing Organization Address [facility]/ZIP Co de Phone Number [facility] [address] [address] * (ABNORMAL) ED CHEMISTRY LABS(NA,K,CL,CO2,GLU,CREAT,CA-IONIZED,ANION GAP) (01/07/2023 8:11 AM CDT) Sodium 137 135 - 148 mEq/L [facility] Potassium 2.9(AA) 3.5 - 5.3 mEq/L [facility] Comment:Critcal Result Low Chloride 104 92 - 108 mEq/L [facility] AnGap 11 8 - 16 mEq/L [facility] Glucose 96 70 - 100 mg/dL [facility] ICA, Actual 4.30(L) 4.40 - 5.20 mg/dL [facility] ICA, pH Corrected 4.41 4.40 - 5.20 mg/dL [facility] Creatinine 0.93 0.50 - 1.00 mg/dL [facility] BICARB 23 22 - 26 mEq/L [facility] eGFR (2020 CKD-EPI) 79 >=60 ml/min/1.7 3m2 [facility] Comment: The estimated glomerular filtration rate (eGFR) was calculated using the CKD-EPI 2020 creatinine equation, which does not include race as a factor. This equation is validated in individuals 18 years of age and older, and eGFR is normalized to a body surface area of 1.73m^2. Blood 01/07/2023 8:11 AM CDT 01/07/2023 8:51 AM CDT Narrative [facility] - 01/07/2023 8:57 AM CDT Critical value for Potassium called to and read back by Amy Martin RN in ED Team Center B at 01/07/2023 08:57:07 CDT by Sharyn Vincent. Leeann Bain MD LABORATORY Performing Organization Address City/[facility]/ZIP Co de Phone Number [facility] [address] [address] * (ABNORMAL) SED RATE (ESR) (01/07/2023 8:11 AM CDT) Sed Rate 25(H) 2 - 20 mm/hr [facility] Blood 01/07/2023 8:11 AM CDT 01/07/2023 9:00 AM CDT Leeann Bain MD LABORATORY Performing Organization Address [facility] Co de Phone Number [facility] [address] [address] * (ABNORMAL) C-REACTIVE PROTEIN - HS (01/07/2023 8:11 AM CDT) C-Reactive Protein - HS 17.47(H) <=5.00 mg/L [facility] Comment: Low cardiovascular risk: 0.0-1.0 mg/L Moderate cardiovascular risk: 1.0-3.0 mg/L High cardiovascular risk: >3.0 mg/L Blood 01/07/2023 8:11 AM CDT 01/07/2023 8:59 AM CDT Leeann Bain MD LABORATORY Performing Organization Address [facility] Co de Phone Number [facility] [address] [address] * ED EKG (12-LEAD) (01/07/2023 8:06 AM CDT) 01/07/2023 8:06 AM CDT Impressions [facility] EKG ORDERS - 01/07/2023 8:06 AM CDT SINUS RHYTHM ST DEVIATION AND MODERATE T-WAVE ABNORMALITY, CONSIDER ANTEROLATERAL ISCHEMIA ??[-0.1+ mV T-WAVE IN V3-V6] ABNORMAL ECG P-R Interval 148 ms QRS Interval 86 ms QT Interval 330 ms QTC Interval 383 ms P Harriman 52 QRS Harriman 2 T Wave Harriman 10 Narrative Procedure Note Yordy Diaz MD - 01/07/[address] DEVIATION AND MODERATE T-WAVE ABNORMALITY, CONSIDER ANTEROLATERALISCHEMIA [- 0.1+ mV T-WAVE IN V3-V6] ABNORMAL ECG P-R Interval 148 ms QRS Interval 86 ms QT Interval 330 ms QTC Interval 383 ms P Harriman 52 QRS Harriman 2 T Wave Harriman 10 Leeann Bain MD EKG [facility] EKG ORDERS * ED US CARDIAC (01/07/2023 7:57 AM CDT) Anatomical Region Laterality Modality Ultrasound Narrative 01/07/2023 4:24 PM CDT ED Cardiac Ultrasound Body Areas Imaged: Heart and Chest Wall/Lungs Indications:Shortness of Breath/Hypoxia Window: Parasternal Short Harriman, Parasternal Long Harriman, Apical 4-Chamber, and Bilateral Lungs Findings: The left ventricular ejection fraction appears: Grossly preserved No pericardial effusion identified. RV Dilation present/absent: No significant right ventricular dilation appreciated Lung sliding present bilaterally, No pleural effusion, A-line predominance The IVC was not imaged Impression: The left ventricular ejection fraction appears: Grossly preserved No pericardial effusion identified. RV Dilation present/absent: No significant right ventricular dilation appreciated A-Line predominance consistent with normal lung aeration Emma Esparza PA-C, 01/07/2023 12:52 PM ED Attending Ultrasound Note: I have personally reviewed the image(s) and initial interpretation, and I agree with the findings as documented. Leeann Bain MD, 01/07/2023 4:23 PM Leeann Bain MD RAD ED ULT documented in this encounter Visit Diagnoses Diagnosis Anaphylaxis, initial encounter- Primary Rash Rash and other nonspecific skin eruption Near syncope Syncope and collapse Polyarthralgia Pain in joint, multiple sites Petechiae Spontaneous ecchymoses Anaphylaxis, initial encounter Hypokalemia Hypopotassemia Asthma, unspecified asthma severity, unspecified whether complicated, unspecified whether persistent Rash Rash and other nonspecific skin eruption Polyarthralgia Pain in joint, multiple sites documented in this encounter Administered Medications Inactive Administered Medications - up to 3 most recent administrations Medication Order MAR Action Action Date Dose Rate Site acetaminophen tablet 650 mg 650 mg, Oral, Q4H PRN, Starting on Mon01/09/23 at 0421, Until Mon01/09/23 at 1815, Mild Pain (Use First) Given 01/09/2023 4:50 AM CDT 650 mg albuterol (VENTOLIN HFA;PROVENTIL HFA;PROAIR) 108 (90 BASE) mcg/act inhaler 1-2 puff 1-2 puff, Inhalation, Q4H PRN, Starting on 01/07/23 at 2107, Until Mon01/09/23 at 1815, Bronchospasms Given 01/09/2023 4:11 AM CDT 1 puff albuterol-ipratropium (DUONEB) 2.5-0.5 mg/3 mL solution 3 mL 3 mL, Nebulization, ONE TIME, 1 dose, On 01/07/23 at 0820 Given 01/07/2023 8:25 AM CDT 3 mL albuterol-ipratropium (DUONEB) 2.5-0.5 mg/3 mL solution 3 mL 3 mL, Nebulization, ONE TIME, 1 dose, On 01/08/23 at 1930 Given 01/08/2023 7:48 PM CDT 3 mL albuterol-ipratropium (DUONEB) 2.5-0.5 mg/3 mL solution 3 mL 3 mL, Nebulization, ONE TIME, 1 dose, On Mon01/09/23 at 0425 Given 01/09/2023 4:31 AM CDT 3 mL albuterol-ipratropium (DUONEB) 2.5-0.5 mg/3 mL solution 3 mL 3 mL, Nebulization, Q4H PRN, Starting on Mon01/09/23 at 0808, Until Mon01/09/23 at 1815, Shortness of Breath ARIPiprazole (ABILIFY) tablet 10 mg 10 mg, Oral, DAILY, First dose on 01/07/23 at 2000, Until Discontinued Given 01/08/2023 7:38 PM CDT 10 mg Given 01/07/2023 7:14 PM CDT 10 mg buPROPion (WELLBUTRIN XL) XL tablet 300 mg 300 mg, Oral, DAILY, First dose on Strum 01/08/23 at 0800, Until Discontinued Given 01/09/2023 8:08 AM CDT 300 mg Given 01/08/2023 7:39 AM CDT 300 mg busPIRone (BUSPAR) tablet 10 mg 10 mg, Oral, TID, First dose on 01/07/23 at 2000, Until Discontinued Given 01/09/2023 1:36 PM CDT 10 mg Given 01/09/2023 8:09 AM CDT 10 mg Given 01/08/2023 7:38 PM CDT 10 mg busPIRone (BUSPAR) tablet 10 mg 10 mg, Oral, ONE TIME, 1 dose, On 01/07/23 at 1620 Given 01/07/2023 4:42 PM CDT 10 mg cetirizine (ZyrTEC) tablet 10 mg 10 mg, Oral, DAILY, First dose on 01/07/23 at 1820, Until Discontinued Given 01/07/2023 7:15 PM CDT 10 mg cetirizine (ZyrTEC) tablet 10 mg 10 mg, Oral, TID, First dose (after last modification) on 01/08/23 at 0800, Until Discontinued Given 01/09/2023 1:36 PM CDT 10 mg Given 01/09/2023 8:09 AM CDT 10 mg Given 01/08/2023 7:38 PM CDT 10 mg citalopram (CeleXA) tablet 20 mg 20 mg, Oral, DAILY, First dose on 01/08/23 at 0800, Until Discontinued Given 01/09/2023 8:09 AM CDT 20 mg Given 01/08/2023 7:39 AM CDT 20 mg SARI MED REC REVIEW BY PHARMACY Discharge Date: 01/09/2023, Discharge Location: Home, Anticipated Discharge Time: After 2 pm, Discharge Medication Orders: DC Med Orders In Progress (meds to be added), Does not apply, PROTOCOL, Starting on Mon01/09/23 at 1203, Until Mon01/09/23 at 1815 diphenhydrAMINE (BENADRYL) 50 mg/mL injection 25 mg 25 mg, IV Push, ONE TIME, 1 dose, On 01/07/23 at 0800 Given 01/07/2023 8:08 AM CDT 25 mg diphenhydrAMINE (BENADRYL) 50 mg/mL injection 25 mg 25 mg, IV Push, ONE TIME, 1 dose, On 01/07/23 at 0915 Given 01/07/2023 9:49 AM CDT 25 mg diphenhydrAMINE (BENADRYL) capsule 50 mg 50 mg, Oral, Q6H PRN, Starting on 01/07/23 at 1811, Until 01/08/23 at 1949, Itching (Use First) Given 01/08/2023 7:39 PM CDT 50 mg Given 01/08/2023 3:06 PM CDT 50 mg Given 01/08/2023 7:39 AM CDT 50 mg diphenhydrAMINE (BENADRYL) capsule 50 mg 50 mg, Oral, QID PRN, Starting on 01/08/23 at 1950, Until 01/09/23 at 1815, Itching (Use First) Given 01/09/2023 4:06 AM CDT 50 mg EPINEPHrine (ANAPHYLAXIS) 1 mg/mL injection 0.3 mg 0.3 mg, Intramuscular, ONE TIME, 1 dose, On 01/07/23 at 0820 Given 01/07/2023 8:26 AM CDT 0.3 mg Left Quadriceps famotidine (PEPCID) tablet 20 mg 20 mg, Oral, DAILY, First dose on 01/07/23 at 1815, Until Discontinued Given 01/07/2023 7:14 PM CDT 20 mg famotidine (PEPCID) tablet 20 mg 20 mg, Oral, BEDTIME, First dose on 01/08/23 at 1935, Until Discontinued Given 01/08/2023 7:48 PM CDT 20 mg GABApentin (NEURONTIN) capsule 300 mg 300 mg, Oral, BID, First dose on 01/07/23 at 2000, Until Discontinued Given 01/09/2023 8:09 AM CDT 300 mg Given 01/08/2023 7:38 PM CDT 300 mg Given 01/08/2023 7:39 AM CDT 300 mg hydrOXYzine (ATARAX;VISTARIL) tablet 25 mg 25 mg, Oral, ONE TIME, 1 dose, On 01/07/23 at 1420 Given 01/07/2023 2:30 PM CDT 25 mg hydrOXYzine (ATARAX;VISTARIL) tablet 25 mg 25 mg, Oral, TID, First dose on 01/07/23 at 2000, Until Discontinued Given 01/09/2023 1:36 PM CDT 25 mg Given 01/09/2023 8:09 AM CDT 25 mg Given 01/08/2023 7:38 PM CDT 25 mg lamoTRIgine (LaMICtal) tablet 50 mg 50 mg, Oral, DAILY, First dose on 01/07/23 at 1955, Until Discontinued Given 01/09/2023 8:09 AM CDT 50 mg Given 01/08/2023 7:39 AM CDT 50 mg Given 01/07/2023 8:44 PM CDT 50 mg magnesium sulfate 2 g IVPB 2 g, Intravenous, ONE TIME, Administer over 2 Hours, On 01/07/23 at 0905 New Bag 01/07/2023 9:50 AM CDT 2 g 25 mL/hr methylPREDNISolone sod succ (Solu-MEDROL) 125 mg/2 mL injection 125 mg 125 mg, IV Push, ONE TIME, 1 dose, On 01/07/23 at 0800 Given 01/07/2023 8:08 AM CDT 125 mg mirtazapine (REMERON) tablet 7.5 mg 7.5 mg, Oral, DAILY, First dose on 01/07/23 at 2000, Until Discontinued Given 01/08/2023 7:38 PM CDT 7.5 mg Given 01/07/2023 7:14 PM CDT 7.5 mg pantoprazole (PROTONIX) tablet 40 mg 40 mg, Oral, DAILY, First dose on 01/07/23 at 1815, Until Discontinued Given 01/09/2023 8:10 AM CDT 40 mg Given 01/08/2023 7:40 AM CDT 40 mg Given 01/07/2023 7:14 PM CDT 40 mg polyethylene glycol 3350 (MIRALAX;GLYCOLAX) packet 17 g 17 g, Oral, DAILY, First dose on 01/08/23 at 0945, Until Discontinued Given 01/09/2023 8:09 AM CDT 17 g Given 01/08/2023 10:06 AM CDT 17 g potassium chloride (K-YAMILET) powder 80 mEq 80 mEq, Oral, ONE TIME, 1 dose, On 01/07/23 at 0905 Given 01/07/2023 9:50 AM CDT 80 mEq predniSONE (DELTASONE) tablet 100 mg 100 mg, Oral, DAILY, First dose on 01/07/23 at 2000, Until Discontinued Given 01/08/2023 7:39 AM CDT 100 mg Given 01/07/2023 8:44 PM CDT 100 mg predniSONE (DELTASONE) tablet 100 mg 100 mg, Oral, DAILY, First dose (after last modification) on Mon01/09/23 at 0800, Until Discontinued Given 01/09/2023 8:09 AM CDT 100 mg predniSONE (DELTASONE) tablet 100 mg 100 mg, Oral, DAILY, 5 doses, First dose on Mon01/10/23 at 0800, Last dose on Mon01/14/23 at 0800 predniSONE (DELTASONE) tablet 20 mg 20 mg, Oral, DAILY, 2 doses, First dose on Mon01/19/23 at 0800, Last dose on Mon01/20/23 at 0800 predniSONE (DELTASONE) tablet 40 mg 40 mg, Oral, DAILY, 2 doses, First dose on Mon01/17/23 at 0800, Last dose on Mon01/18/23 at 0800 predniSONE (DELTASONE) tablet 60 mg 60 mg, Oral, DAILY, 2 doses, First dose on Mon01/15/23 at 0800, Last dose on Mon01/16/23 at 0800 sennosides-docusate sodium (STOOL SOFTENER/LAXATIVE) 8.6-50 mg tablet 2 tablet 2 tablet, Oral, BID, First dose on Mon01/07/23 at 1999, Until Discontinued Given 01/09/2023 8:09 AM CDT 2 tablet s Given 01/08/2023 7:38 PM CDT 2 tablets Given 01/08/2023 7:39 AM CDT 2 tablets triamcinolone acetonide (KENALOG) 0.1 % ointment Topical, BID, First dose on Mon01/07/23 at 1999, Until Discontinued Given 01/09/2023 7:41 AM CDT Other (comment) Given 01/08/2023 7:40 PM CDT Given 01/08/2023 7:40 AM CDT valACYclovir (VALTREX) tablet 500 mg 500 mg, Indication (Select One): Prophylaxis - Medical, Oral, DAILY, First dose on Mon01/07/23 at 1955, Until Discontinued Given 01/09/2023 8:09 AM CDT 500 mg Given 01/08/2023 7:39 AM CDT 500 mg Given 01/07/2023 8:44 PM CDT 500 mg VTE prophylaxis contraindicated Contraindication Reason: Active Bleeding, Does not apply, PROTOCOL, Starting on 01/07/23 at 1811, Until 01/09/23 at 1815 documented in this encounter Active and Recently Administered Medications Times are shown in CDT. Scheduled Medication Order 01/07/2023 01/08/2023 01/09/2023 albuterol-ipratropium (DUONEB) 2.5-0.5 mg/3 mL solution 3 mL (COMPLETED) 3 mL, Nebulization, ONE TIME, 1 dose, On 01/07/23 at 0820 0825 (Given - Provider: Amy Martin RN) albuterol-ipratropium (DUONEB) 2.5-0.5 mg/3 mL solution 3 mL (COMPLETED) 3 mL, Nebulization, ONE TIME, 1 dose, On 01/08/23 at 1930 1948 (Given - Provider: George Gray RN) albuterol-ipratropium (DUONEB) 2.5-0.5 mg/3 mL solution 3 mL (COMPLETED) 3 mL, Nebulization, ONE TIME, 1 dose, On 01/09/23 at 0425 0431 (Given - Provider: Chris Aguillon, RT) ARIPiprazole (ABILIFY) tablet 10 mg 10 mg, Oral, DAILY, First dose on 01/07/23 at 2000, Until Discontinued 191 (Given - Provider: George Gray RN) 193 (Given - Provider: George Gray RN) buPROPion (WELLBUTRIN XL) XL tablet 300 mg 300 mg, Oral, DAILY, First dose on 01/08/23 at 0800, Until Discontinued 0739 (Given - Provider: Tammy Michael RN) 0808 (Given - Provider: Sherry Shipman RN) busPIRone (BUSPAR) tablet 10 mg 10 mg, Oral, TID, First dose on 01/07/23 at 2000, Until Discontinued 191 (Given - Provider: George Gray RN) 0739 (Given - Provider: Tammy Michael RN)1344 (Given - Provider: Tammy Michael RN)193 (Given - Provider: George Gray RN) 0809 (Given - Provider: Sherry Shipman RN)1336 (Given - Provider: Sherry Shipman RN) busPIRone (BUSPAR) tablet 10 mg (COMPLETED) 10 mg, Oral, ONE TIME, 1 dose, On 01/07/23 at 1620 1642 (Given - Provider: Beryl Landin RN) cetirizine (ZyrTEC) tablet 10 mg (CANCELED) 10 mg, Oral, DAILY, First dose on 01/07/23 at 1820, Until Discontinued 1915 (Given - Provider: George Gray RN) cetirizine (ZyrTEC) tablet 10 mg 10 mg, Oral, TID, First dose (after last modification) on 01/08/23 at 0800, Until Discontinued 0739 (Given - Provider: Tammy Michael RN)1344 (Given - Provider: Tammy Michael RN)193 (Given - Provider: George Gray RN) 0809 (Given - Provider: Sherry Shipman RN)1336 (Given - Provider: Sherry Shipman RN) citalopram (CeleXA) tablet 20 mg 20 mg, Oral, DAILY, First dose on 01/08/23 at 0800, Until Discontinued 0739 (Given - Provider: Tammy Michael RN) 0809 (Given - Provider: Sherry Shipman RN) DC MED REC REVIEW BY PHARMACY(Linked Group 1) Discharge Date: 01/09/2023, Discharge Location: Home, Anticipated Discharge Time: After 2 pm, Discharge Medication Orders: DC Med Orders In Progress (meds to be added), Does not apply, PROTOCOL, Starting on 01/09/23 at 1203, Until 01/09/23 at 1815 diphenhydrAMINE (BENADRYL) 50 mg/mL injection 25 mg (COMPLETED) 25 mg, IV Push, ONE TIME, 1 dose, On 01/07/23 at 0800 0808 (Given - Provider: Amy Martin RN) diphenhydrAMINE (BENADRYL) 50 mg/mL injection 25 mg (COMPLETED) 25 mg, IV Push, ONE TIME, 1 dose, On 01/07/23 at 0915 0949 (Given - Provider: Amy Martin, [place]) EPINEPHrine (ANAPHYLAXIS) 1 mg/mL injection 0.3 mg (COMPLETED) 0.3 mg, Intramuscular, ONE TIME, 1 dose, On 01/07/23 at 0820 0826 (Given - Provider: Amy Martin, [place]) famotidine (PEPCID) tablet 20 mg (CANCELED) 20 mg, Oral, DAILY, First dose on 01/07/23 at 1815, Until Discontinued 1913 (Given - Provider: George Gray RN) famotidine (PEPCID) tablet 20 mg 20 mg, Oral, BEDTIME, First dose on 01/08/23 at 1935, Until Discontinued 1947 (Given - Provider: George Gray RN) GABApentin (NEURONTIN) capsule 300 mg 300 mg, Oral, BID, First dose on 01/07/23 at 2000, Until Discontinued 1913 (Given - Provider: George rGay RN) 0739 (Given - Provider: Tammy Michael RN)193 (Given - Provider: George Gray RN) 0809 (Given - Provider: Sherry Shipman RN) hydrOXYzine (ATARAX;VISTARIL) tablet 25 mg (COMPLETED) 25 mg, Oral, ONE TIME, 1 dose, On 01/07/23 at 1420 1430 (Given - Provider: Amy Martin RN) hydrOXYzine (ATARAX;VISTARIL) tablet 25 mg 25 mg, Oral, TID, First dose on 01/07/23 at 2000, Until Discontinued 1913 (Given - Provider: George Gray RN) 0740 (Given - Provider: Tammy Michael RN)1343 (Given - Provider: Tammy Michael RN)193 (Given - Provider: George Gray RN) 0809 (Given - Provider: Sherry Shipman RN)1336 (Given - Provider: Sherry Shipman, [place]) lamoTRIgine (LaMICtal) tablet 50 mg 50 mg, Oral, DAILY, First dose on 01/07/23 at 1955, Until Discontinued 2043 (Given - Provider: George Gray RN) 0739 (Given - Provider: Tammy Michael, [place]) 0809 (Given - Provider: Sherry Shipman, [place]) magnesium sulfate 2 g IVPB (COMPLETED) 2 g, Intravenous, ONE TIME, Administer over 2 Hours, On 01/07/23 at 0905 0950 (New Bag - Provider: Amy Martin, [place])1200 (Infusion completed - Provider: Amy Martin, [place]) methylPREDNISolone sod succ (Solu-MEDROL) 125 mg/2 mL injection 125 mg (COMPLETED) 125 mg, IV Push, ONE TIME, 1 dose, On 01/07/23 at 0800 0808 (Given - Provider: Amy Martin, [place]) mirtazapine (REMERON) tablet 7.5 mg 7.5 mg, Oral, DAILY, First dose on 01/07/23 at 2000, Until Discontinued 1913 (Given - Provider: George Gray RN) 1937 (Given - Provider: George Gray RN) pantoprazole (PROTONIX) tablet 40 mg 40 mg, Oral, DAILY, First dose on 01/07/23 at 1815, Until Discontinued 1913 (Given - Provider: George Gray RN) 0740 (Given - Provider: Tammy Michael, [place]) 0810 (Given - Provider: Sherry Shipman, [place]) polyethylene glycol 3350 (MIRALAX;GLYCOLAX) packet 17 g 17 g, Oral, DAILY, First dose on 01/08/23 at 0945, Until Discontinued 1005 (Given - Provider: Tammy Michael, [place]) 0809 (Given - Provider: Sherry Shipman, [place]) potassium chloride (K-YAMILET) powder 80 mEq (COMPLETED) 80 mEq, Oral, ONE TIME, 1 dose, On 01/07/23 at 0905 0950 (Given - Provider: Amy Martin, [place]) predniSONE (DELTASONE) tablet 100 mg (CANCELED) 100 mg, Oral, DAILY, First dose on 01/07/23 at 2000, Until Discontinued 2043 (Given - Provider: George Gray RN) 0739 (Given - Provider: Tammy Michael RN) predniSONE (DELTASONE) tablet 100 mg (CANCELED) 100 mg, Oral, DAILY, First dose (after last modification) on Mon01/09/23 at 0800, Until Discontinued 808 (Given - Provider: Sherry Shipman RN) predniSONE (DELTASONE) tablet 100 mg(Linked Group 2) 100 mg, Oral, DAILY, 5 doses, First dose on Mon01/10/23 at 0800, Last dose on Mon01/14/23 at 0800 predniSONE (DELTASONE) tablet 20 mg(Linked Group 2) 20 mg, Oral, DAILY, 2 doses, First dose on Mon01/19/23 at 0800, Last dose on Mon01/20/23 at 0800 predniSONE (DELTASONE) tablet 40 mg(Linked Group 2) 40 mg, Oral, DAILY, 2 doses, First dose on Mon01/17/23 at 0800, Last dose on Mon01/18/23 at 0800 predniSONE (DELTASONE) tablet 60 mg(Linked Group 2) 60 mg, Oral, DAILY, 2 doses, First dose on Mon01/15/23 at 0800, Last dose on Mon01/16/23 at 0800 sennosides-docusate sodium (STOOL SOFTENER/LAXATIVE) 8.6-50 mg tablet 2 tablet 2 tablet, Oral, BID, First dose on Mon01/07/23 at 1999, Until Discontinued 2043 (Given - Provider: George Gray RN) 0739 (Given - Provider: Tammy Michael RN)1937 (Given - Provider: George Gray RN) 0809 (Given - Provider: Sherry Shipman RN) triamcinolone acetonide (KENALOG) 0.1 % ointment Topical, BID, First dose on Mon01/07/23 at 1999, Until Discontinued 2043 (Given - Provider: George Gray RN) 0740 (Given - Provider: Tammy Michael RN)1939 (Given - Provider: George Gray RN) 0741 (Given - Provider: Sherry Shipman RN - Comment: leg and arms) valACYclovir (VALTREX) tablet 500 mg 500 mg, Indication (Select One): Prophylaxis - Medical, Oral, DAILY, First dose on 01/07/23 at 1955, Until Discontinued 2043 (Given - Provider: George Gray RN) 0739 (Given - Provider: Tammy Michael, RN) 0809 (Given - Provider: Sherry Shipman RN) VTE prophylaxis contraindicated(Linked Group 3) Contraindication Reason: Active Bleeding, Does not apply, PROTOCOL, Starting on 01/07/23 at 1811, Until 01/09/23 at 1815 PRN Medication Order 01/07/2023 01/08/2023 01/09/2023 acetaminophen tablet 650 mg 650 mg, Oral, Q4H PRN, Starting on 01/09/23 at 0421, Until Mon01/09/23 at 181, Mild Pain (Use First) 0450 (Given - Provider: Chel Mullen, RN) albuterol (VENTOLIN HFA;PROVENTIL HFA;PROAIR) 108 (90 BASE) mcg/act inhaler 1-2 puff 1-2 puff, Inhalation, Q4H PRN, Starting on 01/07/23 at 2107, Until Mon01/09/23 at 1815, Bronchospasms 0411 (Given - Provider: Chel Mullen, RN) albuterol-ipratropium (DUONEB) 2.5-0.5 mg/3 mL solution 3 mL 3 mL, Nebulization, Q4H PRN, Starting on Mon01/09/23 at 0808, Until Mon01/09/23 at 1815, Shortness of Breath diphenhydrAMINE (BENADRYL) capsule 50 mg (CANCELED) 50 mg, Oral, Q6H PRN, Starting on 01/07/23 at 1811, Until 01/08/23 at 1949, Itching (Use First) 1827 (Given - Provider: George Gray RN) 0739 (Given - Provider: Tammy Michael, [place])1506 (Given - Provider: Tammy Michael, RN)1939 (Given - Provider: George Gray RN) diphenhydrAMINE (BENADRYL) capsule 50 mg 50 mg, Oral, QID PRN, Starting on 01/08/23 at 1950, Until Mon01/09/23 at 1815, Itching (Use First) 0406 (Given - Provider: Chel Mullen RN) Linked Groups Order Group 1: DC MED REC REVIEW BY PHARMACYJump to med Discharge Date: 01/09/2023
Discharge Location: Home
Anticipated Discharge Time: After 2 pm
Discharge Medication Orders: DC Med Orders In Progress (meds to be added)
Does not apply, PROTOCOL, Starting on Mon01/09/23 at 1203, Until Mon01/09/23 at 1815 And Discharge Med Rec Final Review by Pharmacy (COMPLETED) Routine, Order to be placed by provider after medications have been entered for discharge and are ready for review by Pharmacist. This order can be placed multiple times if changes or additions have been made to medications for discharge. Choose the Preliminary DC Med Rec review when placing orders prior to the day of discharge. Choose Final DC Med Rec when all medication changes have been entered. If DC Med Rec needed now, please page the Pharmacist covering the patient to inform them.
Discharge Date: 01/09/2023
Discharge Location: Home
Anticipated Discharge Time: After 2 pm Group 2: predniSONE (DELTASONE) tablet 100 mgJump to med 100 mg, Oral, DAILY, 5 doses, First dose on Mon01/10/23 at 0800, Last dose on Mon01/14/23 at 0800 Followed by predniSONE (DELTASONE) tablet 60 mgJump to med 60 mg, Oral, DAILY, 2 doses, First dose on Mon01/15/23 at 0800, Last dose on Mon01/16/23 at 0800 Followed by predniSONE (DELTASONE) tablet 40 mgJump to med 40 mg, Oral, DAILY, 2 doses, First dose on Mon01/17/23 at 0800, Last dose on Mon01/18/23 at 0800 Followed by predniSONE (DELTASONE) tablet 20 mgJump to med 20 mg, Oral, DAILY, 2 doses, First dose on Mon01/19/23 at 0800, Last dose on Mon01/20/23 at 0800 Group 3: VTE prophylaxis contraindicatedJump to med Contraindication Reason: Active Bleeding
Does not apply, PROTOCOL, Starting on Mon01/07/23 at 1811, Until Mon01/09/23 at 1815 And VTE - Prophylaxis Contraindication Communication (COMPLETED) Contraindication Reason: Active Bleeding documented in this encounter
--- OUTSIDE RECORDS SUMMARY | 2023-06-13 09:38 | XMS_ITS | Encounter Summary ---
Author Name Unknown Organization [facility] Address [address] [place] [id number] Care Team Providers Care Ring Spinner Name Role Phone [facility] Unavailable Kika Johnston Primary Care Provider [...] on filedocumented in this encounter Care Teams Ring Spinner Relationship Specialty Start Date End Date [facility] [address] [place] [id number] PCP - Primary Care Clinic 01/06/23 Kika Johnston PA [address] [place] [address] PCP - General 01/06/23 documented as of this encounter
--- OUTSIDE RECORDS SUMMARY | 2023-06-13 09:38 | XMS_ITS | Encounter Summary ---
Author Name Unknown Organization [facility] Address [address] [place] [id number] Phone Care Team Providers Care Electrical Technician Name Role Phone Unavailable Primary Care Provider Unavailabl e Encounter Details Date Type Department Care Team Description 01/07/2023 Travel Social History Tobacco Use Types Packs/Day [...]
--- OUTSIDE RECORDS SUMMARY | 2023-06-13 09:38 | XMS_ITS | Encounter Summary ---
Author Name Unknown Organization [facility] Address [address] [place] [id number] Phone Care Team Providers Care Relief Man Name Role Phone Unavailable Primary Care Provider Unavailabl e Encounter Details Date Type Department Care Team Description 01/04/2023 Travel Social History Tobacco Use Types Packs/Day [...] suspected to have Coronavirus/COVID-19? No / Unsure 01/04/2023 8:03 PM CDT documented as of this encounter Plan of Treatment Not on file documented as of this encounter Visit Diagnoses Not on filedocumented in this encounter
--- OUTSIDE RECORDS SUMMARY | 2023-06-13 09:38 | XMS_ITS | Encounter Summary ---
Author Name Unknown Organization [facility] Address [address] [place] [phone] Phone Care Team Providers Care Environmental Science Technician Name Role Phone Unavailable Primary Care Provider Unavailabl e Reason for Referral * Consult/Test/Treat (Routine) - New Request Specialty Diagnoses / Procedures Referred By Devon taylor Referred To Contact Allergy / ALLERGY Diagnoses Anaphylaxis, initial encounter Trevor Etienne MD [address] [place] [id number] Referral ID Status Reason Start Date Expiration Date V isits Requested Visits Authorized [id number] New Request 01/05/2023 01/06/2024 1 1 Reason for Visit * Reason Comments Allergic Reaction * Auth/Cert (Routine) Specialty Diagnoses / Procedures Referred By Contfloresita taylor Referred To Contact MEDICINE Diagnoses Hypokalemia Rash Petechiae Polyarthralgia Near syncope Anaphylaxis, initial encounter Leeann Bain MD [address] [place] [id number] Medicine [address] [place] [address] [address]5.[address] [place] [address] Referral ID Status Reason Start Date Expiration Date Visits Re quested Visits Authorized [id number] 1 1 Encounter Details Date Type Department Care Team Description 01/04/2023 12:10 PM CDT - 01/05/2023 3:45 PM CDT Emergency [facility] Rapid [facility] 1 [address] [facility] [address] [place], [place] [id number] Jon Jeter MD [address] [facility] [address] [place] [address] Jon Francois MD [address] [facility] [address] [place], [place] [id number] Ana Salazar DO [address] [facility] [address] [place] [address] Trevor Etienne MD [address] [place] [address] Anaphylaxis, initial encounter Discharge Disposition: Discharged to home or self [...] Sign Reading Time Taken Comments Blood Pressure 153/99 01/05/2023 7:31 AM CDT Pulse 92 01/05/2023 7:31 AM CDT Temperature 36.8 ??C (98.3 ??F) 01/05/2023 7:31 AM CD T Respiratory Rate 18 01/05/2023 7:31 AM CDT Oxygen Saturation 93% 01/05/2023 7:31 AM CDT Inhaled Oxygen Concentration - - Weight 130.2 kg (287 lb 0.6 oz) 01/04/2023 7:27 PM CDT Height 180.3 cm (5' 11) 01/04/2023 7:27 PM CDT Body Mass Index 40.03 01/04/2023 7:27 PM CDT documented in this encounter Discharge Summaries * Trevor Etienne MD - 01/05/2023 2:01 PM CDT MEDICINE DISCHARGE SUMMARY Jennifer Tellez : 1980 Sex: female Date of Admission: 01/04/2023 Date of Discharge: 01/05/2023 Disposition: Home/Self Care Primary Care Physician: Kika ATKINS - [facility] BRIEF SUMMARY OF HOSPITALIZATION: This is a pleasant 43-year-old female with a past medical history notable for bipolar 2 disorder, multiple allergies including anaphylaxis to shellfish, rash with penicillins, rash with certain cephalosporins, who presented with suspected anaphylaxis to perfume. She noted that she had received a body spray from a friend on Monday intubated on herself and her sheets. That night noted some itchiness and developed hives throughout her body which progressively worsened. She went to the ER on Monday and received steroids and Benadryl. However continued to sleep in her sheets that had a body spray on it. This caused worsening and she woke up with facial swelling and trouble breathing on prompting ER visit. At the [place] [facility] she was given epinephrine, steroids, Benadryl, famotidine and was transferred to [facility]. She was improving by the time she arrived. She underwent nasopharyngoscopy in the emergency department which did not show any evidence of airway swelling. She was monitored overnight and after a shower felt markedly better. She continued to have some hives but no evidence of airway compromise. Her facial swelling had also markedly improved on pictures that she had taken of herself from the prior days. We reviewed any possible triggers for her anaphylaxis other than the perfume and she noted that she had also used a friend's laundry detergent on the same day that this all started. No new creams, lotions. No new soaps. She will go home and change out all of her sheets and rewash all of her clothes on her own dye free detergent. She will be discharged with a week of steroids and Famotidine. She will also be discharged with as needed Benadryl as well as an EpiPen. We reviewed signs of anaphylaxis that should prompt the use ofan epinephrine pen and calling 911. She should follow up with her primary care physician in 1 week with consideration of outpatient allergy consultation as well. HOSPITAL COURSE BY PROBLEM: Anaphyaxis, Facial Edema, Hives: likely 2/2 new body spray as above vs detergent from her friend. - Discharged to finish out 1 week of steroids and famotidine - Daily cetirizine prescribed - PRN benadryl - Discharged with Epi Pen and instructions on how and when to use. - consider outpatient allergy referral - followup with pcp in 1 week PERTINENT STUDIES & CONSULTS: Nasopharyngoscopy: No airway edema PENDING TESTS RESULTS: None RECOMMENDATIONS AND FOLLOWUP: Followup with PCP in 1 week with consideration of outpatient allergy referral No future appointments. PHYSICAL EXAMINATION: BP (!) 153/99 (Cuff Location: Right Arm) Pulse 92 Temp 36.8 ??C (98.3 ??F) (Oral) Resp 18 Ht 1.803 m (5' 11) Wt 130.2 kg (287 lb 0.6 oz) SpO2 93% BMI 40.03 kg/m?? Estimated body mass index is 40.03 kg/m?? as calculated from the following: Height as of this encounter: 1.803 m (5' 11). Weight as of this encounter: 130.2 kg (287 lb 0.6 oz). Physical Exam Gen: Aox4 in nad HEENT: mild r sided facial swelling noted that is markedly improved from prior photos. Lip swellinghas fully resolved. No tongue swelling. No stridor CV: RRR no rmg Lungs; CTAB Abd: Soft, nt, nd +bs Ext: Without edema Skin: with hives in bilateral armpits and on bilateral hands and arms - all markedly improving throughout the day PLANNED DISCHARGE ORDERS: Discharge Procedure Orders Why you were at the hospital: Order Comments: You were in the hospital for an anaphylactic reaction to likely a body spray that was gifted to you. This should absolutely be avoided in the future. You will need to finish out 1 week of famotidine 1 week of steroids (prednisone) You should take a daily allergy medicine - cetirizine We will also send you with benadryl to be taken as needed as well as an epi pen. Epi pen should be the medicine you use if you notice any facial swelling or trouble breathing or severe abdominal pain. When should I be concerned? Order Comments: Go to the Emergency Department or call 911 IF: -- you are having more trouble breathing -- you have worsening unsteadiness on feet, chest pain, shortness of breath, dizziness, or severe headache -- you have pain that is not controlled by medicine, rest, elevation, or ice -- you have redness, swelling, or severe pain in one or both of your legs -- you have a new rash -- you have skin areas that stay red or notice skin areas breaking down -- you feel you are getting worse or having an increase in problems Please schedule an appointment outside of [facility]: Order Comments: Please contact your (non-[facility]) your Primary Care Provider to schedule an appointment within 1 week(s) of your discharge for hospital followup. Up as tolerated activity level. Order Comments: UP TOLERATED -- Rest is an important part of healing. Save your energy by spreading out activities that make youtired. Rest as needed. -- Slowly increase your level of activity. Regular diet Order Comments: -- Eat a wide variety of foods, including fruits and vegetables, dairy, grains and meats. Medication List START taking these medications cepacol 15-3.6 mg mouth/throat lozenge Take 1 lozenge by mouth every 2 hours as needed for Sore Throat. cetirizine 10 mg tablet Commonly known as: ZyrTEC Take 1 tablet (10 mg) by mouth daily. diphenhydrAMINE 50 mg Capsule Commonly known as: BENADRYL Take 1 capsule (50 mg) by mouth every 6 hours as needed for Allergy Symptoms, Allergic Reaction(s) or Itching. EPINEPHrine 0.3 mg/0.3 mL injection Commonly known as: EPIPEN / AUVI-Q Inject 0.3 mL (0.3 mg) into a muscle one time as needed for Allergic Reaction(s). famotidine 20 mg tablet Commonly known as: PEPCID Take 1 tablet (20 mg) by mouth daily. Start taking on: January 06, 2023 hydrocortisone 2.5% Ointment Apply thin layer to hives as needed twice a day predniSONE 20 mg tablet Commonly known as: DELTASONE Take 3 tablets (60 mg) by mouth daily. Indications: allergy CONTINUE taking these medications ARIPiprazole 10 mg tablet Commonly known as: ABILIFY buPROPion 300 mg Tablet 24 hr Commonly known as: WELLBUTRIN XL busPIRone 10 mg tablet Commonly known as: BUSPAR citalopram 20 mg tablet Commonly known as: CeleXA lamoTRIgine 25 mg Tabs Commonly known as: LaMICtal QUEtiapine 25 mg Tabs Commonly known as: SEROquel Where to Get Your Medications These medications were sent to [facility] [place] [id number] Hours: 12/12 cepacol 15-3.6 mg mouth/throat lozenge cetirizine 10 mg tablet diphenhydrAMINE 50 mg Capsule EPINEPHrine 0.3 mg/0.3 mL injection famotidine 20 mg tablet hydrocortisone 2.5% Ointment predniSONE 20 mg tablet Discussed diagnosis and treatment plan with the patient. Patient verbalized understanding of condition and treatment plan. Planned readmission in the next 30 days: No I personally spent greater than 30 minutes in the final examination and review of hospitalization in discharging this patient. documented in this encounter Medications at Time of Discharge Medication Sig Dispensed Refills Start Date End Date ARIPiprazole (ABILIFY) 10 mg oral tablet Take [...] EPINEPHrine (EPIPEN / AUVI-Q) 0.3 mg/0.3 mL injectionIndications:A naphylaxis Inject 0.3 mL (0.3 mg) into a muscle one time as needed for Allergic Reaction(s). 2 Pen 11 01/05/2023 QUEtiapine (SEROQUEL) 25 mg oral TABS Take 1 tablet (25 mg) by mouth at bedtime. 0 10/06/2022 01/07/2023 famotidine (PEPCID) 20 mg oral tabletIndications:Urti caria Take 1 tablet (20 mg) by mouth daily. 7 tablet 0 01/06/2023 01/09/2023 cepacol 15-3.6 mg mouth/throat lozenge Take 1 lozenge by mouth every 2 hours as needed for Sore Throat. 100 lozenge 0 01/05/2023 01/09/2023 diphenhydrAMINE (BENADRYL) 50 mg oral capsuleIndications:Acu te Urticaria,Anaphylaxis Take 1 capsule (50 mg) by mouth every 6 hours as needed for Allergy Symptoms, Allergic Reaction(s) or Itching. 31 capsule 0 01/05/2023 01/09/2023 cetirizine (ZYRTEC) 10 mg oral tabletIndications:Acut e Urticaria,Anaphylaxis Take 1 tablet (10 mg) by mouth daily. 90 tablet 3 01/05/2023 01/09/2023 predniSONE (DELTASONE) 20 mg oral tabletIndications:louis rgy Take 3 tablets (60 mg) by mouth daily. Indications: allergy 18 tablet 0 01/05/2023 01/09/2023 documented as of this encounter Progress Notes * Karl Das RN - 01/05/2023 3:30 PM CDT DISCHARGE NOTE D: Patient is being discharged. A: (As documented in the Discharge Planning Flowsheet) Discharge Instructions (AVS): AVS given Discharge clothing/valuables: has adequate clothing;has no valuables in vault Discharge medications: patient received medications Home equipment status: no equipment needed Home equipment/supplies recommended: none Final discharge destination: Home or self care R: The patient understood the AVS. P: Support patient if they call back with questions. Karl Das RN, 01/05/2023 3:30 PM documented in this encounter H&P Notes * Jon Francois MD - 01/04/2023 4:53 PM CDT MEDICINE HISTORY AND PHYSICAL Jennifer Tellez DOB: 1980 Sex: female Patient Summary: Jennifer Tellez is a 42 y.o. female with past medical history of anaphylaxis admitted on 01/04/2023 with anaphylaxis Assessment and Plan: Anaphylaxis Facial edema Given epi pen x 2, solumedrol, zofran, reglan prior to transfer. -monitor -benadryl prn -start pred taper in am based upon symptoms overnight -refill epi pen at discharge -will need to discuss removal of offending agent in the home prior to discharge/return Bipolar disorder: no evidence of decompensation. 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 -start low dose gabapentin, wellbutrin while awaiting med rec in am. FEN: regular Prophylaxis: heparin SC if prolonged stay Code Status: Full Code Dispo: home once facial edema improved History of Present Illness: Patient is 42-year-old female with past medical history of bipolar 2 disorder, multiple allergies including anaphylaxis to shellfish, rash with penicillins, rash with certain cephalosporins presenting with suspected anaphylaxis to a perfume. See ED H&P note for details. She had a new perfume which caused worsening symptoms in setting of known hx allergies, prompting trip to ED where she received epi x2, solumedrol, H2 etc. Transferred here for ongoing management in the setting of facial edema and urticaria. Had nasopharyngoscopy in the ED without concern for airway compromise per report. Remote hx with shellfish age 16, nothing since. Does not carry an epi pen currenty. Currently still endorses some subjective facial swelling and whole body itching. denies other notable complaints. Links to update patient chart: Medical History, Surgical History, Family History, Psychosocial History, Medication List, Allergies, Code Status, LDA & Wounds Complete review of systems was performed - See HPI. All others negative. Objective: Vitals: 01/04/23 1442 BP: 128/80 Pulse: Resp: Temp: SpO2: Physical Exam General: NAD, alert and oriented x3, pleasant. HEENT: sclera anicteric Cardiovascular: RRR, no murmurs, rubs, or gallups. Pulmonary: Lungs clear to auscultation without rales, rhonchi, or wheezes. Gastrointestinal: soft, non-tender, positive bowel sounds. Genitourinary: No Og. Musculoskeletal: no cyanosis, clubbing, or edema. Skin: diffuse urticaria Neurologic: strength and sensation grossly intact. Psychiatric: thought process coherent, answering questions appropriately, euthymic. PCP: No primary care provider on file. documented in this encounter Procedure Notes * Cortez Randle MD - 01/04/2023 2:26 PM CDTAssociated Order(s): Nasopharyngoscopy Nasopharyngoscopy Performed by: Cortez Randle MD Authorized by: Jon Jeter MD Consent: Consent obtained: Verbal Consent given by: Patient Anesthesia (see MAR for exact dosages): Anesthesia method: Topical application Topical anesthetic: Lidocaine gel (Nebulized lidocaine) Procedure details: Indications: assessment of airway Instrument: flexible fiberoptic nasal endoscope Scope location: right nare Nasal cavity: right nasal cavity not occluded and no right nasal cavity polyps Right inferior turbinates: normal Septum: normal Sinus: Right middle meatus: normal Right nasopharynx: normal Mouth: Posterior pharyngeal wall: normal Oropharynx: normal Vallecula: normal Base of tongue: normal Epiglottis: normal Throat: Right hypopharynx: normal Left hypopharynx: normal Pyriform sinus: normal False vocal cords: normal True vocal cords: normal Post-procedure details: Patient tolerance of procedure: Tolerated well, no immediate complications Cortez Randle MD, 01/04/2023 2:26 PM Associated attestation - Jon Jeter MD - 01/04/2023 5:01 PM CDT I was present for the entire procedure. Jon Jeter MD, 01/04/2023 5:01 PM documented in this encounter ED Notes * Fiordaliza Mirza MD - 01/04/2023 3:14 PM CDT Transfer of Care Note Patient: Jennifer Tellez : 1980 Age: 42 y.o. female Sign out received from Cortez Randle MD. Please see original ED provider note for further details. PERTINENT HPI, PMH, & ED COURSE In brief, 42 y.o. female with a history of multiple allergies including anaphylaxis who presented as transfer from OSH with suspected anaphylaxis to new perfume. Reported pruritis, urticaria, globus sensation, and lip swelling Prednisone burst outpatient but worsening SOB due to continued exposure to perfume S/p epi x2, solumedrol, famotidine, antiemetics Symptoms have improved ED Course Last epi at 1000 No interventions here, swelling improving Urticaria to bilateral hands - calamine Nasopharyngoscopy normal Work-UP Pending Monitor symptoms, may admit to obs If d/c, send home with epipen FINAL ED COURSE, DISPOSITION, AND PLAN BP 128/80 (Cuff Location: Left Arm, Patient Position: Lying Down) Pulse 84 Temp 36.4 ??C (97.5 ??F) (Oral) Resp 20 SpO2 96% Upon assuming care, I reviewed the chart, results of studies performed during their course in the ED, re-examined the patient, and discussed their care and plan with my supervising attending. ED Course as of 01/05/23 0032 MonJan 04, 2023 1804 Patient reporting worsened lip swelling with persistent itching. Voice change noted on exam. Will give another dose of epinephrine. 1834 Patient has already received 150 mg Benadryl today, will give cetirizine 10 mg and famotidine 20 mg for treatment of pruritus and urticaria. Patient remained hemodynamically stable throughout their stay in the ED. Report called to admittingteam. Patient transported to floor without incident. Final Clinical Impression 1. Anaphylaxis, initial encounter Disposition and Plan Admit to medicine Fiordaliza Mirza MD, 01/04/2023 3:14 PM Emergency Medicine Resident PGY-1 Dictation Disclaimer: Some notes are completed with voice-recognition dictation software. As a result, there may be errors in the script that have gone undetected. Errors are generally corrected in real time. Please contact me via [employer] staff message if you note any errors requiring clarification. * Cortez Randle MD - 01/04/2023 12:29 PM CDT Images from the original note were not included. ED Provider Note Jennifer Tellez : 1980 Sex: female Patient Arrival Date and Time: 01/04/2023 12:10 PM HPI Patient is 42-year-old female with past medical history of bipolar 2 disorder, multiple allergies including anaphylaxis to shellfish, rash with penicillins, rash with certain cephalosporins presenting with suspected anaphylaxis to a perfume. She states that she got the perfume on Monday from a friend, began having hives and itchiness Monday into Monday. She sprayed the perfume on her sheets and has been sleeping in their sheets that the day and then Monday and Monday had worsening itchiness as well as some difficulty breathing that got worse acutely on Monday morning prompting emergent evaluation. She received prednisone and steroids prior to Monday and before her transfer shedid get epinephrine IM x2 as well as famotidine, Solu-Medrol, Zofran, Reglan. Her main symptoms were itchiness, urticaria, felt that there was a lump in her throat as well as lip swelling. After the epinephrine she does state that her swelling is improved, her itchiness has improved, and she is notshort of breath. She did have 1 episode of nausea but states that this was after she got medication administration on an empty stomach. MDM / ED Course Jennifer Tellez is a 42 y.o. female who presents with anaphylaxis. Patient was seen and evaluatedby myself upon arrival to the ED. Nursing notes were reviewed and multiple etiologies were considered. Dx, DDx, Assessment and Plan was discussed with Attending Emergency Medicine Physician. Vital signs stable and within normal limits. Physical examination notable for minor lower lip swelling, some urticaria and swelling of the hands, notably she had no wheezing and was not in respiratory distress with no signs of upper airway involvement. Given her past medical history of anaphylaxis as well as exposure to her recent offending agent with progressive symptoms that worsened with repeat exposure I have a high suspicion for anaphylaxis especially in the setting of her response to epinephrine. Since she already got Solu-Medrol, epinephrine x2, famotidine she did not require any additional medication. She also had no clinical signs of anaphylaxis as she only had isolated skin findings and has no wheezing, nausea, vomiting. I performeda nasopharyngoscopy on her as well and did not see any signs of lower airway swelling, edema, over or vocal cord dysfunction so any airway management was not indicated at this time. Although she is overall well- appearing at this time given that her symptoms are slowly improving and she required 2 doses of IM epinephrine I think she is appropriate for admission for observation. Her care was signedout with the oncoming team with the plan to continue to monitor airway, redose epinephrine if needed and continue to help control her symptoms of urticaria The patient remained in the emergency department through the end of my shift. Their care was signedout [id number] with the oncoming provider. Final Clinical Impression Anaphylaxis Disposition and Plan Admit for observation Problems Addressed 1 acute or chronic illness or injury that poses a threat to life or bodily function Data considered External notes reviewed and summarized Risk of patient management Decision regarding hospitalization IMPRESSION 1. Anaphylaxis, initial encounter Pertinent Physical Exam findings: PE: BP 128/80 (Cuff Location: Left Arm, Patient Position: Lying Down) Pulse 84 Temp 36.4 ??C (97.5 ??F) (Oral) Resp 20 SpO2 96% General: Well-appearing, in no acute distress HEENT: Minor lower lip swelling, no tongue swelling Neck: Trachea midline, range of motion intact, no tenderness to palpation along midline Eyes: Extraocular movements intact bilaterally, no conjunctival injection, PERRL Cardiac: Regular rate and rhythm, normal S1-S2 appreciated, no murmurs/rubs/gallops on auscultation Pulmonary: normal respiratory effort, CTAB bilaterally, no wheezes/rales/rhonchi appreciated Abdominal: Soft, nondistended, no tenderness to palpation, no fluid wave appreciated Musculoskeletal: Moving all extremities spontaneously, no obvious deformities, no tremors appreciated Neuro: Normal mood, affect, and speech, at baseline, CN 2-12 intact on gross examination, normal ambulation Nasopharyngoscopy Cortez Randle MD, 01/04/2023 5:56 PM * Mynor Newman RN - 01/04/2023 12:14 PM CDT Pt transferred from [facility], pt went to hospital at 0800, allergic reaction. Pt startedusing a bed and body mist 5 days ago. Pt noted swelling and sought medical attention 1 day later. Prescribed prednisone by MD. Pt continued to use product for 2 more days. Today pt experiencing difficulty breathing given IV benadryl and EPI. During transport pt given another dose of IV benadryl, not ed to having facial weeping. Pt endorses not being able to sleep for three days, secondary to itching.. * Parisa Olsen RN - 01/04/2023 12:10 PM CDT Bed: A11 Expected date: Expected time: Means of arrival: Comments: [id number] Anaphylaxis resolving documented in this encounter Miscellaneous Notes * Nursing Assessment - Karl Das RN - 01/05/2023 10:20 AM CDT Nursing Assessment Head to Toe Head to Toe Assessment Shift Summary Pt AAOx4. VSS on RA w/ mild HTN. Pt continues to have intermittently worsening itching and hives that improved w/ benedryl. Independent. Pt states her throat is sore, but improved from yesterday. Karl Das RN, 01/05/2023 11:07 AM Neurologic/Cognitive Within Defined Limits HEENT Assessment Within Defined Limits except for: Head/Face Symptoms: generalized swelling Throat Symptoms: sore Cardiac Within Defined Limits Respiratory Within defined limits Neurovascular Within Defined Limits Gastrointestinal Within Defined Limits Genitourinary Within Defined Limits Musculoskeletal Within Defined Limits Integumentary Assessment Within Defined Limits except for: Skin Assessment Color/Characteristics - flushed Integrity - rashes Integrity Location - Flushed and redness to chest, face, and upper arms. Patient Lines/Drains/Airways Status Active LDAs None Psychosocial Assessment Within Defined Limits except for: Psychosocial Assessment: Observed Patient Behaviors: Anxious/afraid/apprehensive * Utilization Management - Kirsten Loo MD - 01/05/2023 9:29 AM CDT 42 W presents with likely anaphylactic reaction to perfume. Transferred from outside hospital. Being treated with epinephrine, steroids. Patient continues with symptoms this morning. High risk for rapid clinical deterioration, appropriate for observation. Paged Dr. Gildardo Cornell reading continuous oximetry. * Utilization Management - Nehal Rich RN - 01/05/2023 7:59 AM CDT Admitted with DX: anaphylaxis from perfume agent- transfer from [facility]- treated with Epi x 2, steroids, zofran Does not meet Interqual criteria for OBS Reason not met: No continuous oximetry ordered/documented Refer to PA for secondary review * Cross Cover - Evelyn Summers MD - 01/05/2023 6:23 AM CDT Called regarding worsening itching and swelling in neck area (she presented with facial edema). No urticaria, flushing, lip or tongue swelling, shortness of breath/wheezing, hypotension, abdominal pain or vomiting. She received Solu- Medrol 125 mg prior to transfer to [facility]. Will order IV Benadryl and Solu-Medrol 60 mg. Will monitor closely for signs of shortness of breath, wheezing, hypotension abdominal pain, nausea or vomiting. Since she does not have the symptoms now, will not administer epinephrine. * Nursing Assessment - Paulette Bell RN - 01/05/2023 3:26 AM CDT Nursing Assessment Head to Toe Head to Toe Assessment Shift Summary Pt is A & OX4, able to call for need. Denies pain,nausea,vomiting and Sob.Pt reported of itching and benadryl given.Call light is within reach. Will continue Monitor. BP 129/88 (Cuff Location: Left Arm) Pulse 66 Temp 36.7 ??C (98 ??F) (Oral) Resp 18 Ht 1.803m (5' 11) Wt 130.2 kg (287 lb 0.6 oz) SpO2 98% BMI 40.03 kg/m?? Paulette Bell, RN, 01/05/2023 3:33 AM Pt requested zyrtec for itching and paged provider about it. Provider order hydroxyzine for severe itching and tab. Given. Will continue Monitor. Paulette Bell, RN, 01/05/2023 5:24 AM Pt slept on and off.Pt reported that after slept for 2 hr ,she wakeup with mild swelling around herRt eye and feeling sore throat,mild swelling neck. Paged provider about it.One time benadryl given.Provider come to checked on pt and vital checked ,it stable and denies Sob.Will continue Monitor. Paulette Bell, RN, 01/05/2023 6:50 AM Solu medrol iv ordered by provider and waiting for pharmacy to send. Paulette Bell, RN, 01/05/2023 7:04 AM Neurologic/Cognitive Within Defined Limits HEENT Within Defined Limits Cardiac Assessment Within Defined Limits except for: Chest Pain: No Operations Staff Specialist Security - no Respiratory Within defined limits Comments: On Room Air. Neurovascular Within Defined Limits Gastrointestinal Within Defined Limits Genitourinary Assessment Within Defined Limits except for: Voiding: Voiding without difficulty Comments: Up independent. Musculoskeletal Within Defined Limits Integumentary Within Defined Limits Patient Lines/Drains/Airways Status Active LDAs None Psychosocial Within Defined Limits * Cross Cover - Evelyn Summers MD - 01/05/2023 3:24 AM CDT Ordered hydroxyzine for itching * Nursing Assessment - Aaliyah Diaz RN - 01/04/2023 8:22 PM CDT Nursing Assessment Head to Toe Head to Toe Assessment Shift Summary Shift Summary NURSING ADMISSION NOTE Jennifer Tellez : 1980 SEX: female D: Jennifer Tellez was admitted to RTU from ED at 1922 for Anaphylaxis, initial encounter . Patient: alert, person, place, time, SITUATION. Skin: redness and swelling. Pain: non-existent. BP 138/89 (Cuff Location: Right Arm) Pulse 68 Temp 36.9 ??C (98.5 ??F) (Oral) Resp 19 Ht 1.803 m (5' 11) Wt 130.2 kg (287 lb 0.6 oz) SpO2 96% BMI 40.03 kg/m?? A: Pt oriented to unit, room, and use of call light. Routine admit screens completed. Telemetry notordered. R:PATIENT AND/OR FAMILY: patient was able to verbalize understanding of unit policy and plan of care. Questions answered. Learning considerations: None. P: Implement orders as received. Will continue to monitor, follow plan of care, and notify providerand/or team as needed. Aaliyah Diaz RN, 01/04/2023 8:25 PM Patient Belonging 01/04/20232000 Reason for Inventory: ED/APS Admission Patient or family informed of Patient Valuables and Belongings Policy (#[id number]): Policy reviewed - patient/family/designee has indicated that he/she will assume responsibility of patient valuables Patient Belongings: Electronics;Clothing;Other Electronics Comment: Cellphone Additional Comments: Ernesto Pt reports having allergic reaction since last Tuesday 01/02 after using body mist. Endorsed inguinal, abdominal and b/l hand itching. Zyrtec, IV and benadryl administered with relief. Oriented pt to room and use of call light. Rest promoted. Aaliyah Diaz RN, 01/04/2023 11:29 PM Neurologic/Cognitive Within Defined Limits HEENT Within Defined Limits Cardiac Within Defined Limits Respiratory Within defined limits Comments: Denies SOB or difficulty breathing Neurovascular Assessment Within Defined Limits except for: Comments: Facial swelling Gastrointestinal Within Defined Limits Genitourinary Within Defined Limits Musculoskeletal Within Defined Limits Integumentary Assessment Within Defined Limits except for: Skin Assessment Color/Characteristics - redness, blanchable Color/Characteristics Location - Facial Comments: Itching , groin , hands and armpits. Patient Lines/Drains/Airways Status Active LDAs None Psychosocial Assessment Within Defined Limits except for: Psychosocial Assessment: Verbalized Emotional State: Acceptance * Interdisciplinary Note - Jon Francois MD - 01/04/2023 4:33 PM CDT Quality Control Microbiologist of the Day (MOD) Triage/Communication Note Sign out received from TC-A Requested unit: RTU Patient status: obs Cardiac telemetry needed? 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 Given epi, solumedrol, famotidine. Still with facial swelling so admitting for observation. Jon Francois MD, 01/04/2023 4:33 PM Staff Physician, [facility] Medicine Note is for communication only, not billing * ED Faculty Note - Jon Jeter MD - 01/04/2023 1:11 PM CDT Images from the original note were not included. ED Faculty Attestation and Note Jennifer Tellez : 1980 Sex: female Patient Arrival Date and Time: 01/04/2023 12:10 PM FACULTY ATTESTATION I Jon Jeter MD, personally saw the patient, performed critical or oliva portions of the service, and discussed the care with the resident MDM / ED Course Jennifer Tellez presented to the emergency department brought in by ambulance as a transfer from outside hospital for further management of anaphylaxis. On arrival to the emergency department she is hemodynamically stable, does not have any respiratory distress, no wheezing on exam. She does still have some facial and lip swelling. Feels that overall she is improving. Nasopharyngoscopy was performed and we did not observe any swelling of the base of the tongue or larynx. Patient was admitted for extended observation as she is required multiple rounds of epinephrine and still has some facialswelling. I am concerned she is at risk for recurrence of her anaphylactic symptoms and should be in a monitored setting for 24 hours. Problems Addressed / DDx 1 acute or chronic illness or injury that poses a threat to life or bodilyfunction Data considered External notes reviewed and summarized and Tests Ordered Risk of patient management Decision regarding hospitalization IMPRESSION 1. Anaphylaxis, initial encounter Jon Jeter MD, 01/05/2023 1:11 PM documented in this encounter Plan of Treatment Scheduled Referrals Name Type Priority Associated Diagnoses Orde r Schedule REFERRAL TO ALLERGY Referral Routine Anaphylaxis, initial encounter Ordered: 01/05/2023 documented as of this encounter Procedures Procedure Name Priority Date/Time Associated Diagnosis Comments PANEL BASIC METABOLIC (BMP) Routine 01/05/2023 5:42 AM CDT PC LAB CBC/PLT Routine 01/05/2023 5:42 AM CDT PF NEED STATISTICIAN APPLIED REVIEW Routine 01/04/2023 2:26 PM CDT documented in this encounter Results * (ABNORMAL) CBC WITH PLATELET (01/05/2023 5:42 AM CDT) WBC 14.99(H) 4.00 - 10.00 k/cmm [facility] RBC 4.85 3.90 - 5.20 m/cmm [facility] Hgb 13.4 11.5 - 15.7 g/dL [facility] Hematocrit 40.9 34.0 - 45.0 % [facility] MCV 84.3 80.0 - 100.0 fL [facility] MCH 27.6 25.0 - 32.0 pg [facility] MCHC 32.8 31.0 - 36.0 g/dL [facility] RDW 13.5 11.5 - 14.5 % [facility] Plt 365 150 - 400 k/cmm [facility] MPV 8.9 6.5 - 12.5 fL [facility] Blood 01/05/2023 5:42 AM CDT 01/05/2023 6:25 AM CDT Jon Francois MD LABORATORY Performing Organization Address [facility] Co de Phone Number [facility] [address] [address] * (ABNORMAL) PANEL BASIC METABOLIC (BMP) (01/05/2023 5:42 AM CDT) CO2 27 22 - 30 mEq/L [facility] Glucose 85 70 - 100 mg/dL [facility] BUN 12 6 - 20 mg/dL [facility] Creatinine 1.05(H) 0.50 - 1.00 mg/dL [facility] Calcium 9.3 8.6 - 10.0 mg/dL [facility] eGFR (2020 CKD-EPI) 68 >=60 ml/min/1.7 3m2 [facility] Comment: The estimated glomerular filtration rate (eGFR) was calculated using the CKD-EPI 2020 creatinine equation, which does not include race as a factor. This equation is validated in individuals 18 years of age and older, and eGFR is normalized to a body surface area of 1.73m^2. Sodium 139 135 - 148 mEq/L [facility] Potassium 4.0 3.5 - 5.3 mEq/L [facility] Chloride 102 92 - 108 mEq/L [facility] AnGap 10 8 - 16 mEq/L [facility] Blood 01/05/2023 5:42 AM CDT 01/05/2023 6:24 AM CDT Jon Francois MD LABORATORY Performing Organization Address [facility] Co de Phone Number [facility] [address] [address] * PF NEED STATISTICIAN APPLIED REVIEW (01/04/2023 2:26 PM CDT) Narrative Jon Jeter MD - 01/04/2023 2:26 PM CDT Cortez Randle MD ? 01/04/2023 ??2:28 PM Nasopharyngoscopy Performed by: Cortez Randle MD Authorized by: Jon Jeter MD ?? Consent: ??Consent obtained: ??Verbal ??Consent given by: ??Patient Anesthesia (see MAR for exact dosages): ??Anesthesia method: ??Topical application ??Topical anesthetic: ??Lidocaine gel (Nebulized lidocaine) Procedure details: ??Indications: assessment of airway ?Instrument: flexible fiberoptic nasal endoscope ?Scope location: right nare ?? Nasal cavity: ??right nasal cavity not occluded and no right nasal cavity polyps ?Right inferior turbinates: ?normal Septum: ??normal ?? Sinus: ??Right middle meatus: ?normal ?Right nasopharynx: ?normal Mouth: ??Posterior pharyngeal wall: normal ?Oropharynx: ?normal ?Vallecula: ?normal ?Base of tongue: ?normal ?Epiglottis: ?normal ?? Throat: ??Right hypopharynx: ?normal ?Left hypopharynx: ?normal ?Pyriform sinus: ?normal ?False vocal cords: ?normal ?True vocal cords: ?normal ?? Post-procedure details: ??Patient tolerance of procedure: ??Tolerated well, no immediate complications Jon Jeter MD PROCEDURES documented in this encounter Visit Diagnoses Diagnosis Anaphylaxis, initial encounter- Primary Anaphylaxis, initial encounter documented in this encounter Admitting Diagnoses Diagnosis Anaphylaxis, initial encounter documented in this encounter Administered Medications Inactive Administered Medications - up to 3 most recent administrations Medication Order MAR Action Action Date Dose Rate Site ARIPiprazole (ABILIFY) tablet 10 mg 10 mg, Oral, DAILY, First dose on Mon01/05/23 at 0940, Until Discontinued Given 01/05/2023 10:09 AM CDT 10 mg buPROPion (WELLBUTRIN XL) XL tablet 300 mg 300 mg, Oral, DAILY, First dose on Mon01/05/23 at 0800, Until Discontinued Given 01/05/2023 7:42 AM CDT 300 mg busPIRone (BUSPAR) tablet 10 mg 10 mg, Oral, TID, First dose on [place] 01/05/23 at 1000, Until Discontinued Given 01/05/2023 2:09 PM CDT 10 mg Given 01/05/2023 11:30 AM CDT 10 mg Calamine lotion Apply to: Irritation on Both/All Hand ., Topical, ONE TIME, 1 dose, On Mon01/04/23 at 1445 Given 01/04/2023 3:30 PM CDT cepacol 1 lozenge mouth/throat 1 lozenge, Oral, Q2H PRN, Starting on Mon01/05/23 at 0930, Until Mon01/05/23 at 1846, Sore Throat Given 01/05/2023 12:01 PM CDT 1 lozenge Given 01/05/2023 10:09 AM CDT 1 lozenge cetirizine (ZyrTEC) tablet 10 mg 10 mg, Oral, ONE TIME, 1 dose, On Mon01/04/23 at 1845 Given 01/04/2023 7:56 PM CDT 10 mg citalopram (CeleXA) tablet 20 mg 20 mg, Oral, DAILY, First dose on Mon01/05/23 at 1005, Until Discontinued Given 01/05/2023 10:09 AM CDT 20 mg diphenhydrAMINE (BENADRYL) 12.5 mg/5mL elixir 50 mg 50 mg, Oral, Q6H PRN, Starting on Mon01/05/23 at 0931, Until Mon01/05/23 at 1846, Allergy Symptoms, Itching (Use First) diphenhydrAMINE (BENADRYL) 50 mg/mL injection 25 mg 25 mg, IV Push, Q6H PRN, Starting on Mon01/04/23 at 2012, Until Mon01/05/23 at 0931, Allergy Symptoms, Itching (Use First) Given 01/05/2023 9:10 AM CDT 25 mg Given 01/05/2023 3:07 AM CDT 25 mg Given 01/04/2023 8:51 PM CDT 25 mg diphenhydrAMINE (BENADRYL) 50 mg/mL injection 25 mg 25 mg, IV Push, ONE TIME, 1 dose, On Mon01/05/23 at 0600 Given 01/05/2023 6:13 AM CDT 25 mg diphenhydrAMINE (BENADRYL) capsule 50 mg 50 mg, Oral, Q6H PRN, Starting on Mon01/05/23 at 0931, Until Mon01/05/23 at 1846, Allergy Symptoms, Itching (Use First) Given 01/05/2023 10:09 AM CDT 50 mg EPINEPHrine (ANAPHYLAXIS) 1 mg/mL injection 0.3 mg 0.3 mg, Intramuscular, ONE TIME, 1 dose, On Mon01/04/23 at 1755 Given 01/04/2023 5:57 PM CDT 0.3 mg Left Vastus Laterali s famotidine (PEPCID) tablet 20 mg 20 mg, Oral, ONE TIME, 1 dose, On Mon01/04/23 at 1835 Given 01/04/2023 6:37 PM CDT 20 mg famotidine (PEPCID) tablet 20 mg 20 mg, Oral, DAILY, First dose (after last reorder) on Mon01/05/23 at 1000, Until Discontinued Given 01/05/2023 10:09 AM CDT 20 mg GABApentin (NEURONTIN) capsule 300 mg 300 mg, Oral, BID, First dose on Mon01/04/23 at 2040, Until Discontinued Given 01/05/2023 7:42 AM CDT 300 mg Given 01/04/2023 8:51 PM CDT 300 mg heparin 02286 UNITS/mL injection 7,500 UNITS 7,500 UNITS, Subcutaneous, Q 8H, First dose (after last reorder) on Mon01/05/23 at 1400, Until Discontinued Given 01/05/2023 2:09 PM CDT 7,500 UNITS Abdominal Tissue hydrocortisone 2.5% ointment Topical, BID, First dose on Mon01/05/23 at 1000, Until Discontinued hydrOXYzine (ATARAX;VISTARIL) tablet 25 mg 25 mg, Oral, Q4H PRN, Starting on Mon01/05/23 at 0323, Until Mon01/05/23 at 0559, Itching (Use First) Given 01/05/2023 3:41 AM CDT 25 mg lamoTRIgine (LaMICtal) tablet 50 mg 50 mg, Oral, DAILY, First dose on Mon01/05/23 at 1000, Until Discontinued Given 01/05/2023 10:09 AM CDT 50 mg methylPREDNISolone sod succ (Solu-MEDROL) 125 mg/2 mL injection 60 mg 60 mg, IV Push, Q24H, First dose on Mon01/05/23 at 0625, Until Discontinued Given 01/05/2023 7:42 AM CDT 60 mg documented in this encounter Active and Recently Administered Medications Times are shown in CDT. Scheduled Medication Order 01/03/2023 01/04/2023 01/05/2023 ARIPiprazole (ABILIFY) tablet 10 mg 10 mg, Oral, DAILY, First dose on Mon01/05/23 at 0940, Until Discontinued 1009 (Given - Provid er: Karl Das RN) buPROPion (WELLBUTRIN XL) XL tablet 300 mg 300 mg, Oral, DAILY, First dose on Mon01/05/23 at 0800, Until Discontinued 0742 (Given - Provid er: Karl Das RN) busPIRone (BUSPAR) tablet 10 mg 10 mg, Oral, TID, First dose on Mon01/05/23 at 1000, Until Discontinued 1130 (Given - Provid er: Karl Das RN)1409 (Given - Provider: Dominik Limon RN) Calamine lotion (COMPLETED) Apply to: Irritation on Both/All Hand ., Topical, ONE TIME, 1 dose, On Mon01/04/23 at 1445 1530 (Given - Provider: Mynor Newman RN) cetirizine (ZyrTEC) tablet 10 mg (COMPLETED) 10 mg, Oral, ONE TIME, 1 dose, On Mon01/04/23 at 1845 1956 (Given - Provider: Aaliyah Diaz RN) citalopram (CeleXA) tablet 20 mg 20 mg, Oral, DAILY, First dose on Mon01/05/23 at 1005, Until Discontinued 1009 (Given - Provid er: Karl Das RN) diphenhydrAMINE (BENADRYL) 50 mg/mL injection 25 mg (COMPLETED) 25 mg, IV Push, ONE TIME, 1 dose, On Mon01/05/23 at 0600 0613 (Given - Provid er: Paulette Bell RN) EPINEPHrine (ANAPHYLAXIS) 1 mg/mL injection 0.3 mg (COMPLETED) 0.3 mg, Intramuscular, ONE TIME, 1 dose, On Mon01/04/23 at 1755 1757 (Given - Provider: Mynor Newman RN) famotidine (PEPCID) tablet 20 mg (COMPLETED) 20 mg, Oral, ONE TIME, 1 dose, On Mon01/04/23 at 1835 1837 (Given - Provider: Mynor Newman RN) famotidine (PEPCID) tablet 20 mg 20 mg, Oral, DAILY, First dose (after last reorder) on Mon01/05/23 at 1000, Until Discontinued 1009 (Given - Provid er: Karl Das RN) GABApentin (NEURONTIN) capsule 300 mg 300 mg, Oral, BID, First dose on Mon01/04/23 at 2040, Until Discontinued 2050 (Given - Provider: Aaliyah Diaz RN) 0742 (Given - Provider: Karl Das RN) heparin 57578 UNITS/mL injection 7,500 UNITS 7,500 UNITS, Subcutaneous, Q 8H, First dose (after last reorder) on Mon01/05/23 at 1400, Until Discontinued 1409 (Given - Provid er: Dominik Limon RN) hydrocortisone 2.5% ointment Topical, BID, First dose on Mon01/05/23 at 1000, Until Discontinued 1143 (Not Given (rem oves Due time) - Provider: Karl Das RN - Reason: Medication unavailable) lamoTRIgine (LaMICtal) tablet 50 mg 50 mg, Oral, DAILY, First dose on Mon01/05/23 at 1000, Until Discontinued 1009 (Given - Provid er: Karl Das RN) methylPREDNISolone sod succ (Solu-MEDROL) 125 mg/2 mL injection 60 mg 60 mg, IV Push, Q24H, First dose on Mon01/05/23 at 0625, Until Discontinued 0742 (Given - Provid er: Karl Das RN) QUEtiapine (SEROquel) tablet 25 mg 25 mg, Oral, BEDTIME, First dose on Mon01/05/23 at 2000, Until Discontinued PRN Medication Order 01/03/2023 01/04/2023 01/05/2023 acetaminophen tablet 650 mg 650 mg, Oral, Q4H PRN, Starting on Mon01/04/23 at 1945, Until Mon01/05/23 at 1846, Temp > 38.6 C, Mild Pain (Use First) cepacol 1 lozenge mouth/throat 1 lozenge, Oral, Q2H PRN, Starting on Mon01/05/23 at 0930, Until Mon01/05/23 at 1846, Sore Throat 1009 (Given - Provid er: Karl Das RN)1201 (Given - Provider: Karl Das RN) diphenhydrAMINE (BENADRYL) 12.5 mg/5mL elixir 50 mg(Linked Group 1) 50 mg, Oral, Q6H PRN, Starting on Mon01/05/23 at 0931, Until Mon01/05/23 at 1846, Allergy Symptoms, Itching (Use First) 1009 (See Alternativ e - Provider: Karl Das RN) diphenhydrAMINE (BENADRYL) 50 mg/mL injection 25 mg (CANCELED) 25 mg, IV Push, Q6H PRN, Starting on Mon01/04/23 at 2012, Until Mon01/05/23 at 0931, Allergy Symptoms, Itching (Use First) 2050 (Given - Provider: Aaliyah Diaz RN) 0307 (Given - Provider: Paulette Bell RN)0910 (Given - Provider: Karl Das RN) diphenhydrAMINE (BENADRYL) capsule 50 mg(Linked Group 1) 50 mg, Oral, Q6H PRN, Starting on Mon01/05/23 at 0931, Until Mon01/05/23 at 1846, Allergy Symptoms, Itching (Use First) 1009 (Given - Provid er: Karl Das RN) hydrOXYzine (ATARAX;VISTARIL) tablet 25 mg (CANCELED) 25 mg, Oral, Q4H PRN, Starting on Mon01/05/23 at 0323, Until Mon01/05/23 at 0559, Itching (Use First) 0341 (Given - Provid er: Paulette Bell RN) ondansetron (ZOFRAN) tablet 4 mg 4 mg, Oral, Q6H PRN, Starting on Mon01/04/23 at 1945, Until Mon01/05/23 at 1846, Nausea/Vomiting (Use First), Use if patient able to tolerate oral tablet Linked Groups Order Group 1: diphenhydrAMINE (BENADRYL) capsule 50 mgJump to med 50 mg, Oral, Q6H PRN, Starting on Mon01/05/23 at 0931, Until Mon01/05/23 at 1846, Allergy Symptoms, Itching (Use First) Or diphenhydrAMINE (BENADRYL) 12.5 mg/5mL elixir 50 mgJump to med 50 mg, Oral, Q6H PRN, Starting on Mon01/05/23 at 0931, Until Mon01/05/23 at 1846, Allergy Symptoms, Itching (Use First) documented in this encounter
--- OUTSIDE RECORDS SUMMARY | 2023-06-13 09:38 | XMS_ITS | Encounter Summary ---
Author Name Unknown Organization [facility] h Address [address] [place] [id number] Care Team Providers Care Clinical Partner Name Role Phone [facility], [facility] Unavailable Kika Johnston Primary Care Provider Reason for Visit * Reason Comments Hives Encounter Details Date Type Department Care Team (Late st Contact Info) Description 01/06/2023 2:52 PM CDT - 01/06/2023 3:18 PM CDT Emergency [facility] Emergency Department [address] [place] [id number] Chuck Hawkins MD [address] [facility] [address] [place] [address] Discharge Disposition: Returning Home/Self Care [...] through Care Everywhere. * Urticaria (AfterCare(R) Instructions(ER/ED)) ([place] Islander) documented in this encounter Medications at Time [...] progressively worsened until she was admitted at [facility] with anaphylaxis on 01/04. She felt better [...] of External Notes: I reviewed the patient's [place] discharge summary from yesterday. She was admitted [...] use PAST SURGICAL HISTORY: Hammer toe repair [place] teeth extraction Varicose vein surgery D&C PHYSICAL [...] to follow-up closely with primary doctor and medical economics consultant. She feels comfortable with this plan. DIAGNOSIS: [...] is accurate. Chuck Hawkins MD 01/06/23 01/06/2023 [facility] EMERGENCY DEPARTMENT * Jim Lowe RN - 01/06/2023 12:27 PM CDT Pt presents today for evaluation of hives. Hives started last Monday and have progressively gotten worse. Treated at [facility] for anaphylaxis 01/04. Initially was seen at [place] twice earlier this week. Pt reports that she felt better when d/c from [facility] yesterday. Today when she got up hives [...] mmol/L ATELLICA ANALYZER 01/06/2023 1:[address] [facility] Potassium 3.5 3.4 - 5.1 mmol/L ATELLICA ANALYZER 01/06/2023 1:[address] [facility] Chloride 102 98 - 108 mmol/L ATELLICA ANALYZER 01/06/2023 1:[address] [facility] Carbon Dioxide 26 20 - 31 mmol/L ATELLICA ANALYZER 01/06/2023 1:[address] [facility] BUN (Urea Nitro) 10 9 - 23 mg/dL ATELLICA ANALYZER 01/06/2023 1:13 PM CDT [facility] Creatinine 0.73 0.55 - 1.02 mg/dL ATELLICA ANALYZER 01/06/2023 1:13 PM CDT [facility] Est GFR (CKD-EPI) >60.00 >60.00 mL/min/1. 73m2 ATELLICA ANALYZER 01/06/2023 1:13 PM CDT [facility] Comment:Calculation based on the Chronic Kidney Disease Epidemiology Collaboration (CKD-EPI) equation refit without adjustment for race. Glucose 122(H) 74 - 106 mg/dL ATELLICA ANALYZER 01/06/2023 1:[address] [facility] Calcium, Serum 9.2 8.7 - 10.4 mg/dL ATELLICA ANALYZER 01/06/2023 1:[address] [facility] Anion Gap 10.0 0.0 - 15.0 mmol/L ATELLICA ANALYZER 01/06/2023 1:[address] [facility] Blood 01/06/2023 12:4 3 PM CDT 01/06/2023 12:46 PM CDT Candido Miranda MD CHEMISTRY ORDERAB LE [facility] [address] [place] [address] * (ABNORMAL) CBC w/diff (01/06/2023 12:43 PM CDT) WBC 19.5(H) 4.3 - 10.8 K/uL 01/06/2023 12:[address] [facility] RBC 4.87 4.20 - 5.40 M/uL 01/06/2023 12:[address] [facility] Hemoglobin 13.4 12.0 - 16.0 gm/dL 01/06/2023 12:[address] [facility] Hematocrit 39.9 36.0 - 48.0 % 01/06/2023 12:[address] [facility] MCV 82 80 - 100 fL 01/06/2023 12:[address] [facility] MCH 28 27 - 33 pg 01/06/2023 12:[address] [facility] MCHC 34 33 - 36 gm/dL 01/06/2023 12:[address] [facility] RDW 13.2 11.5 - 14.5 % 01/06/2023 12:[address] [facility] Platelet Count 384 150 - 400 K/UL 01/06/2023 12:[address] [facility] MPV 8.7 6.5 - 12 fL 01/06/2023 12:[address] [facility] PMN % 90.3 % 01/06/2023 12:[address] [facility] IG % 0.8 <=1.0 % 01/06/2023 12:[address] [facility] Lymphocyte % 7.1 % 01/06/2023 12:[address] [facility] Monocyte % 1.5 % 01/06/2023 12:[address] [facility] Eosinophil % 0.1 % 01/06/2023 12:[address] [facility] Basophil % 0.2 % 01/06/2023 12:[address] [facility] PMN Absolute 17.63(H) 1.80 - 7.80 K/uL 01/06/2023 12:[address] [facility] IG ABSOLUTE 0.15(H) 0.00 - 0.00 K/uL 01/06/2023 12:[address] [facility] Lymphocyte Absolute 1.38 1.00 - 4.00 K/uL 01/06/2023 12:[address] [facility] Monocyte Absolute 0.30 0.00 - 1.00 K/uL 01/06/2023 12:57 PM [facility] Eosinophil Absolute 0.01 0.00 - 0.45 K/uL 01/06/2023 12:[address] [facility] Basophil Absolute 0.04 0.00 - 0.20 K/uL 01/06/2023 12:57 PM [facility] Nucl RBC % 0.0 0.0 - 0.0 /100 WBC 01/06/2023 12:57 PM [facility] Nucl RBC Absolute 0.00 0.00 - 0.00 K/uL 01/06/2023 12:57 PM [facility] Blood 01/06/2023 12:4 3 PM CDT 01/06/2023 12:46 PM CDT Candido Miranda MD HEMATOLOGY ORDERA BLE [facility] [address] [place] [id number] documented in this encounter Visit Diagnoses Diagnosis Urticaria- Primary Urticaria, unspecified documented in this encounter Care Teams Clinical Partner Relationship Specialty Start Date End Date [facility] [address] [place] [phone] PCP - Primary Care Clinic 01/06/23 Kika Johnston PA [address] [facility] [address] P[facility] - General 01/06/23 documented as of this encounter
--- OUTSIDE RECORDS SUMMARY | 2023-06-13 09:38 | XMS_ITS | Referral Summary ---
Author Name Unknown Organization [facility] Address [address] [place] [address] Care Team Providers Care Seismograph Observer Name Role Phone Clinic, [facility] Kika Johnston Primary Care Provider Allergies Active [...] of Treatment Not on file Care Teams Seismograph Observer Relationship Specialty Start Date End Date Clinic, [facility] [address] [place] [address] PCP - Primary Care Clinic 01/06/23 Kika Johnston PA [address] [place] [address] PCP - General 01/06/23
--- OUTSIDE RECORDS SUMMARY | 2023-06-13 09:38 | XMS_ITS | Clinical Summary ---
Author Name Unknown Organization [facility] Address [address] [place] [id number] Care Team Providers Care Dipper And Drier Name Role Phone [facility], [facility] Unavailable Kika Johnston Primary Care Provider Allergies [...] 08/05/2005, 08/05/2005, Additional history exists Care Teams Dipper And Drier Relationship Specialty Start Date End Date Clinic, [facility] [address] [place] [address] PCP - Primary Care Clinic 01/06/23 Kika Johnston PA [address] [place] [address] PCP - General 01/06/23
== END 2023-06-10 23:17 | disposition home or self-care (01) ==
LOC: AMB 06-13 09:28
PROVIDERS: PCP Physician Assistant Medical; Visit Provider Family Medicine
DX: R11.0 Nausea (principal)
CPT/HCPCS: A0425; A0427

== ENCOUNTER 2023-06-10 23:34 | Emergency (ER) | payer MEDICARE, OTHER, SELFPAY ==
[2023-06-10 23:37] VITALS: BP 133/89; PULSE 83; RESP 20; TEMP 36.4; O2SAT 96; BMI 25.9
--- NOTE | 2023-06-11 01:29 | ED_ITS ---
HPI - General Adult General Chief complaint: Unspecified Complaint, Adult Stated complaint: Pelvic pain Time Seen by Provider: 06/11/23 01:28 History of Present Illness HPI narrative: Pt aox4, ABCs intact. Pt arrives via EMS for evaluation of lower abdominal pain and nausea/ vomiting since this afternoon. Patient states that she was dx with a ovarian cyst. Patient having worsening pain, abdominal distention, and vomiting today . Took zofran at 2230. 43-year-old woman presenting to the emergency department via EMS with concern of abdominal pain. She has been experiencing vomiting and nausea beginning this afternoon. And now having some lower abdominal pain and sensation of bloating. Has not had a fever. Did have some Zofran available but this did not address all the nausea. She is not having any dysuria. Was seen by me in this department nearly 3 weeks ago with nausea and neck pain. Thought that perhaps nausea was being generated by the radicular neck pain. She does have follow-up for this neck pain at the end of the month with sports medicine I believe for consideration of injection. In the interim up she reports being diagnosed with an ovarian cyst. Able to obtain records which indicate that this is not a new cyst. It is 4.5 cm and without blood flow. The ovary itself on the left notes normal blood flow. Gynecology referral has been made for follow-up. No particular known sick contacts. She is not having any diarrhea. Reviewing records and note chronically, generally elevated white count. Of which Ms. Tellez also makes mention. Later in visit wants to focus on neck pain. Related Data Home Medications Medication Instructions Recorded Confirmed aripiprazole 10 mg tablet 10 mg PO DAILY 09/30/22 06/10/23 bupropion HCl 300 mg 24 hr tablet, 300 mg PO QAM 09/30/22 06/10/23 extended release buspirone 10 mg tablet 10 mg PO TID 09/30/22 06/10/23 cholecalciferol (vitamin D3) 1,250 1,250 mcg PO QWEEK 09/30/22 06/10/23 mcg (50,000 unit) oral wafer citalopram 10 mg tablet 20 mg PO DAILY 09/30/22 06/10/23 ferrous sulfate 325 mg (65 mg 325 mg PO DAILY 09/30/22 06/10/23 iron) tablet gabapentin 300 mg capsule 300 mg PO QID 09/30/22 06/10/23 lamotrigine 25 mg tablet 50 mg PO DAILY 09/30/22 06/10/23 mirtazapine 7.5 mg tablet 7.5 mg PO HS 09/30/22 06/10/23 naproxen 500 mg tablet,delayed 500 mg PO BID 09/30/22 06/10/23 release (EC-Naproxen) omeprazole 20 mg tablet,delayed 20 mg PO DAILY 09/30/22 06/10/23 release sennosides 8.6 mg-docusate sodium 2 tab-cap PO BID 09/30/22 06/10/23 50 mg tablet (Senexon-S) acetaminophen 500 mg tablet 1,000 mg PO Q6H PRN pain 10/06/22 06/10/23 methocarbamol 500 mg tablet 500 mg PO QID 10/06/22 06/10/23 epinephrine 0.3 mg/0.3 mL IM 01/15/23 05/08/23 injection, auto-injector baclofen 10 mg tablet 10 mg PO 3XD 05/11/23 06/10/23 valacyclovir 500 mg tablet 500 mg PO DAILY 06/10/23 06/10/23 Previous Rx's Medication Instructions Recorded diphenhydramine HCl 25 mg capsule 50 mg (2 x 25 mg) PO TID PRN #30 01/02/23 (Benadryl) caps hydrocortisone 2.5 % lotion 1 applic topical BID PRN #59 mL 01/03/23 epinephrine 0.3 mg/0.3 mL 0.3 ml IM Q5-15M PRN #2 ea 01/15/23 injection, auto-injector ondansetron 4 mg disintegrating 4 mg PO QID PRN nausea and 04/21/23 tablet vomiting #10 tabs prednisone 20 mg tablet 20 mg PO BID 3 days #6 tabs 04/21/23 apixaban 5 mg tablet (Eliquis) 5 mg PO BID #60 tabs 05/08/23 prednisone 20 mg tablet 40 mg (2 x 20 mg) PO DAILY 5 days 05/22/23 #10 tabs Allergies Allergy/AdvReac Type Severity Reaction Status Date / Time shellfish derived Allergy Severe Anaphylaxis Verified 06/14/23 16:22 cephalexin [From Keflex] Allergy Intermediate Rash Verified 06/14/23 16:22 Cephalosporins Allergy Intermediate Rash Verified 06/14/23 16:22 Penicillins Allergy Intermediate Rash Verified 06/14/23 16:22 Review of Systems Status of ROS: Reports: 6 or more systems reviewed and unremarkable except as noted in History and below [facility] Medical History History of substance abuse ?F19.11 - Other psychoactive substance abuse, in remission (ICD-10) History of alcohol abuse ?F10.11 - Alcohol abuse, in remission (ICD-10) Femoral neck fracture ?S72.009A - Fracture of unspecified part of neck of unspecified femur, initial encounter for closed fracture (ICD-10) Cubital tunnel syndrome, bilateral ?G56.23 - Lesion of ulnar nerve, bilateral upper limbs (ICD-10) Obesity ?E66.9 - Obesity, unspecified (ICD-10) Substance use disorder ?F19.90 - Other psychoactive substance use, unspecified, uncomplicated (ICD- 10) Back problem ?M53.9 - Dorsopathy, unspecified (ICD-10) Anxiety ?F41.9 - Anxiety disorder, unspecified (ICD-10) Depression ?F32.A - Depression, unspecified (ICD-10) Asthma ?J45.909 - Unspecified asthma, uncomplicated (ICD-10) Surgical History Status post total hip replacement, 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) ?Z96.642 - Presence of left artificial hip joint (ICD-10) Status post laparoscopic cholecystectomy (09/13/19) ?Z90.49 - Acquired absence of other specified parts of digestive tract (ICD- 10) History of varicose vein ligation ?Z98.890 - Other specified postprocedural states (ICD-10) ?Z86.79 - Personal history of other diseases of the circulatory system (ICD- 10) Hx of hammer toe correction (10/22/03) ?Z98.890 - Other specified postprocedural states (ICD-10) ?Z87.39 - Personal history of other diseases of the musculoskeletal system a nd connective tissue (ICD-10) Family History Father Leukemia Social History Narrative: single, 2 kids, nonsmoker, no EtOH Highest level of school completed/degree received: Associate degree: occupational, technical, vocational program Smoking Status: Former smoker Do you use any of these nicotine containing products: None Second hand tobacco smoke exposure: No How often do you have a drink containing alcohol: never How often do you have six or more drinks on one occasion: Never AUDIT-C Alcohol total score: 0 Non-prescribed substance use: denies use Caffeine: Yes service: No Exam Narrative: Exam Narrative: Is pleasant. Bright affect. Moving without significant difficulty though ho lding neck a little stiffly. Breathing easily. Lungs are clear. Heart in regular rate and rhythm. Cranial nerves 2-12 intact. Abdomen is overweight soft and mildly uncomfortable to palpation at epigastrium and across low abdomen generally. No peritoneal signs. Extremities are without edema. Const: Vital Signs, click to edit/add: Vital Signs - 24 hr 06/10/23 23:37 Temperature 97.6 F Pulse Rate [Pulse Oximeter] 83 Respiratory Rate 20 Blood Pressure [Ri ght Upper Arm] 133/89 Pulse Oximetry 96 Oxygen Delivery Me thod Room Air Documenting provider has reviewed patient's vital signs: yes Course Vital Signs Vital signs: Initial Vital Signs Temperature 97.6 F 06/10/23 23:37 Temperature Source Temporal Artery Scan 06/10/23 23:37 Pulse Rate 83 06/10/23 23:37 Respiratory Rate 20 06/10/23 23:37 Blood Pressure 133/89 06/10/23 23:37 Blood Pressure Mean 103 06/10/23 23:37 Pulse Oximetry 96 06/10/23 23:37 Oxygen Delivery Method Room Air 06/10/23 23:37 Vital Signs Temperature 97.6 F 06/10/23 23:37 Pulse Rate 83 06/10/23 23:37 Respiratory Rate 20 06/10/23 23:37 Blood Pressure 133/89 06/10/23 23:37 Pulse Oximetry 96 06/10/23 23:37 Oxygen Delivery Method Room Air 06/10/23 23:37 Temperature 97.6 F 06/10/23 23:37 Pulse Rate 83 06/10/23 23:37 Respiratory Rate 20 06/10/23 23:37 Blood Pressure 133/89 06/10/23 23:37 Pulse Oximetry 96 06/10/23 23:37 Oxygen Delivery Method Room Air 06/10/23 23:37 Medications Administered Medications: Discontinued Medications Generic Name Dose Route Start Last Admin Trade Name Dwight PRN Reason Stop Dose Admin Sodium Chloride 1,000 mls @ 1,000 mls/hr 06/11/23 01:38 06/11/23 03:33 0.9 % Sodium Chloride 1000 Ml IV 06/11/23 02:37 Infused .Q1H ONE Infusion Ketorolac Tromethamine 30 mg 06/11/23 01:38 06/11/23 02:02 Ketorolac 30 Mg/Ml Inj IVP 06/11/23 01:39 30 mg ONCE ONE Administration Lidocaine 1 patch 06/11/23 03:47 06/11/23 04:00 Lidocaine 5% Patch TRANSDERMA 06/11/23 03:48 1 patch ONCE ONE Administration Protocol Promethazine HCl 12.5 mg 06/11/23 01:38 06/11/23 02:08 Promethazine 25 Mg/Ml Inj IVP 06/11/23 01:39 12.5 mg ONCE ONE Administration Medical Decision Making MDM Narrative Medical decision making narrative: In community prevalence there certainly has been a lot of nausea and vomiting illness out there. I would triple swab for this; in particular looking for influenza B. Will also check white count, basic labs to see if further evaluation is needed regarding abdomen though this seems to be a relatively benign abdominal exam. Does not seem to have the kind of discomfort I would associate with leaking cyst particularly hemorrhagic or torsion. UTI/cystitis is in differential. Pain does not seem consistent with ureteral stone and colic . Cholecystitis? Pain not really in the right upper quadrant but possible. Inconsistent with pancreatitis. She would like relief of nausea and the abdominal discomfort. Would appreciate some fluids. Does express a little bit of a headache as well. IVs established. Received a L normal saline and ketorolac and promethazine. Later in visit expresses interest to focus more on her neck pain. Does not appear to be anything new on assessment here but offered lidocaine patch. This may have been helpful. Overall is improved. Labs are reassuring. Mildly elevated white count. Mildly elevated ALT. Suspect fatty liver. Urinalysis is rather concentrated with 2-5 white cells though without clear symptoms here and more symptoms I do not think this is related to abdominal discomfort. Triple swab is negative I think presentation here today is consistent with viral gastritis/enteritis picture. Does have follow-up with jewelry dipper. See patient discharge plan Medical Records Medical records reviewed: Yes I reviewed the patient's medical records Lab Data Lab results reviewed: Yes I reviewed the patient's lab results Labs: Lab Results 06/11/23 06/11/23 Range/Units 01:58 03:55 WBC 13.37 H (4.50-11.00) K/uL RBC 4.71 (4.00-5.20) m/uL Hgb 12.8 (12.0-16.0) gm/dL Hct 40.4 (33.0-51.0) % MCV 86 (80-100) fL MCH 27 (26-34) pg MCHC 32 (32-36) gm/dL RDW Coeff of Afshin 14.0 (11.5-15.5) % Plt Count 421 (140-440) K/uL Neut % (Auto) 78.7 H (42.0-72.0) % Lymph % (Auto) 14.0 L (20-44) % [place] % (Auto) 5.7 (0.0-11.0) % Eos % (Auto) 0.8 (0.0-7.0) % Baso % (Auto) 0.4 (0.0-3.0) % Neut # (Auto) 10.50 H (1.7-7.0) K/uL Lymph # (Auto) 1.90 (0.90-2.90) K/uL [place] # (Auto) 0.80 (0.00-0.90) K/UL Eos # (Auto) 0.10 (0.00-0.50) K/uL Baso # (Auto) 0.10 (0.00-0.30) K/uL Abs Immat Gran (auto) 0.10 (0.00-0.30) K/uL Imm/Tot Granulo (auto) 0.4 % Sodium 141 (135-149) mmol/L Potassium 4.0 (3.6-5.1) mmol/L Chloride 107 (96-114) mmol/L Carbon Dioxide 25 (20-32) mmol/L Anion Gap 9 (7-15) mEq/L BUN 15 (5-24) mg/dL Creatinine 0.7 (0.5-1.5) mg/dL Estimated Creat Clear 115.82 Estimated GFR 110 ml/min Glucose 121 H (60-115) mg/dL Lactate 1.1 (0.5-1.9) mmol/L Calcium 9.7 (8.4-10.6) mg/dL Total Bilirubin 0.6 (0.1-1.5) mg/dL Direct Bilirubin 0.2 (0.0-0.5) mg/dL AST 27 (12-35) U/L ALT 68 H (4-35) U/L Alkaline Phosphatase 115 (40-150) U/L C-Reactive Protein 2.8 H (0.5-1.0) mg/dL Total Protein 8.1 (6.0-8.3) g/dL Albumin 4.6 (3.3-5.0) g/dL Urine Color Yellow (Yellow) Urine Appearance Cloudy A (Clear) Urine pH 5.5 (5.0-8.5) Ur Specific [place] >= 1.030 (1.000-1.030) Urine Protein Trace A (Negative) Urine Glucose (UA) Negative (Negative) Urine Ketones Negative (Negative) Urine Blood Negative (Negative) Urine Nitrite Negative (Negative) Urine Bilirubin 1+ A (Negative) Urine Urobilinogen 0.2 (0.2-1.0) Ur Leukocyte Esterase Negative (Negative) Urine RBC 0-2 (0-2) Urine WBC 2-5 (0-5) Ur Squamous Epith Cells Few (None-Few) Urine Bacteria Moderate A (None) Urine HCG, Qual Negative (Negative) SARS-CoV-2 (PCR) Negative SARS-CoV-2 (Negative) Influenza Type A (PCR) Negative PCR FLU A (Negative) Influenza Type B (PCR) Negative PCR FLU B (Negative) Discharge Plan Discharge Clinical Impression: Cervicalgia, Abdominal pain, Vomiting Patient Disposition: Home, Self-Care Condition: Improved Additional Instructions: I am glad to hear that you have follow-up with jewelry dipper. If this lidocaine patch was helpful, you can ask your primary to prescribe some more though they are also available [id number]. You have anti-nausea meds at home. I would make use of them. Also slow advance of diet over the next 24-36 hours. Focus on starting with diluted juices and soup broths. Then rice, toast, crackers. Prescriptions: No Action lamotrigine 25 mg tablet 50 mg PO DAILY citalopram 10 mg tablet 20 mg PO DAILY bupropion HCl 300 mg tablet extended release 24 hr 300 mg PO QAM ferrous sulfate 325 mg (65 mg iron) tablet 325 mg PO DAILY cholecalciferol (vitamin D3) 1,250 mcg (50,000 unit) wafer 1,250 mcg PO QWEEK omeprazole 20 mg tablet,delayed release (DR/EC) 20 mg PO DAILY aripiprazole 10 mg tablet 10 mg PO DAILY mirtazapine 7.5 mg tablet 7.5 mg PO HS sennosides-docusate sodium [Senexon-S] 8.6-50 mg tablet 2 tab-cap PO BID naproxen [EC-Naproxen] 500 mg tablet,delayed release (DR/EC) 500 mg PO BID Hold Instructions: Resume on 11/07/22. Resume once you are no longer taking Tordol or aspirin buspirone 10 mg tablet 10 mg PO TID gabapentin 300 mg capsule 300 mg PO QID acetaminophen 500 mg tablet 1,000 mg PO Q6H PRN (Reason: pain) methocarbamol 500 mg tablet 500 mg PO QID diphenhydramine HCl [Benadryl] 25 mg capsule 50 mg PO TID PRNQty: 30 0RF hydrocortisone 2.5 % lotion 1 applic topical BID PRNQty: 59 0RF epinephrine 0.3 mg/0.3 mL auto-injector IM epinephrine 0.3 mg/0.3 mL auto-injector 0.3 ml IM Q5-15M PRNQty: 2 0RF Rx Instructions: do not exceed 3 doses per episode baclofen 10 mg tablet 10 mg PO 3XD prednisone 20 mg tablet 20 mg PO BID 3 Days Qty: 6 0RF ondansetron 4 mg tablet,disintegrating 4 mg PO QID PRN (Reason: nausea and vomiting) Qty: 10 0RF Eliquis 5 mg tablet 5 mg PO BID Qty: 60 2RF prednisone 20 mg tablet 40 mg PO DAILY 5 Days Qty: 10 1RF valacyclovir 500 mg tablet 500 mg PO DAILY Follow Up/Referrals: Kika Johnston PASarithaC [Primary Care Provider] - Stand Alone Forms: [facility] Info Instructions
--- OUTSIDE RECORDS SUMMARY | 2023-06-11 01:51 | XMS_ITS | Clinical Summary ---
Author Name Unknown Organization [facility] Address [address] [place] [id number] Care Team Providers Care Leather Heel Breaster Name Role Phone [facility], [facility] Unavailable Kika Johnston Primary Care Provider Allergies Active Allergy Reactions Criticality Noted Date Comments Cephalexin 01/10/2012 Penicillins 01/10/2012 Shellfish Containing Products Anaphylaxis High 12/18 Medications Medication Sig Dispensed Refills Start Date End Date Status IPRATROPIUM/ALBUTERO L SULFATE (IPRATROPIUM-ALBUTER OL INHL) by Inhalation route. 0 Acti ve Social History Tobacco Use Types Packs/Day Years Used Date Smoking Tobacco: Every Day Cigarettes 0.5 Alcohol Use Standard Drinks/Week Comments Yes 0 (1 standard drink = 0.6 oz pur e alcohol) Sex and Gender Information Value Date Recorded Sex Assigned at Not on file Gender Identity Not on file Sexual Orientation Not on file Last Filed Vital Signs Vital Sign Reading Time Taken Comments Blood Pressure 127/75 01/06/2023 12:25 PM CDT Pulse 84 01/06/2023 12:25 PM CDT Temperature 36.7 ??C (98.1 ??F) 01/06/2023 12:25 PM C DT Respiratory Rate 16 01/06/2023 12:25 PM CDT Oxygen Saturation 97% 01/06/2023 12:25 PM CDT Inhaled Oxygen Concentration - - Weight - - Height - - Body Mass Index - - Plan of Treatment Health Maintenance Due Date Last Done Comments Hepatitis C Screening 1980 Lipid Screening 1980 Mammogram Screening 1980 Pap Smear 1980 COVID-19 Vaccine (#1) 1980 Anxiety Screening (JOSUE-2) 1981 Depression Assessment (PHQ-2) 1981 Pneumococcal <65 (1 of 2 - PCV) 1986 Influenza Vaccine (#1) 2023 02/18/2017, 2014 Adult Tetanus Booster 04/15/2024 04/15/2014 , 08/05/2005, 08/05/2005, Additional history exists Care Teams Leather Heel Breaster Relationship Specialty Start Date End Date Clinic, [facility] [address] [place] [address] PCP - Primary Care Clinic 01/06/23 Kika Johnston PA [address] [place] [address] PCP - General 01/06/23
--- OUTSIDE RECORDS SUMMARY | 2023-06-11 01:51 | XMS_ITS | Encounter Summary ---
Author Name Unknown Organization [facility] Address [address] [place] [id number] Care Team Providers Care Car Checker Name Role Phone [facility] Unavailable Kika Johnston Primary Care Provider Encounter Details Date Type Department Care Team (Latest Contact Info) Description 01/06/2023 Travel Social History Tobacco Use Types Packs/Day Years Used Date Smoking Tobacco: Every Day Cigarettes 0.5 Alcohol Use Standard Drinks/Week Comments Yes 0 (1 standard drink = 0.6 oz pur e alcohol) Sex and Gender Information Value Date Recorded Sex Assigned at Not on file Gender Identity Not on file Sexual Orientation Not on file documented as of this encounter Plan of Treatment Not on file documented as of this encounter Visit Diagnoses Not on filedocumented in this encounter Care Teams Car Checker Relationship Specialty Start Date End Date [facility] [address] [place] [address] PCP - Primary Care Clinic 01/06/23 Kika Johnston PA [address] [place] [address] PCP - General 01/06/23 documented as of this encounter
--- OUTSIDE RECORDS SUMMARY | 2023-06-11 01:51 | XMS_ITS | Clinical Summary ---
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 arterial and venous blood flow on color Doppler analysis. Complex left ovarian cyst is present containing solid and cystic components measuring 4.5 x 2.1 x 3.1 cm. No discernible internal vascularity. There are no suspicious fluid collections within the cul-de-sac. Procedure Note Sudhakar Contreras MD - 06/08/2023 For Patients: As a result of the Century Cures Act, medical imagingexams and procedure reports are released immediately into your electronicmedical record. You may view this report before your referring provider.If you have questions, please contact your health care provider. INDICATION: Follow-up left ovary COMPARISON: MRI [facility] 10/05/2022 TECHNIQUE: 2D khan scale and color Doppler images were acquired of the pelvis using atransabdominal and transvaginal approach. FINDINGS: Sonographic images demonstrate a normal size and smooth outer contour ofthe uterus. Uterus measures 8.4 cm in length by 4.0 cm in AP diameter by3.3 cm in transverse dimension. The myometrium has a normal uniformechotexture. The endometrial lining appears normal and measures 7 mm incomposite thickness. The right ovary is not visualized and the left ovary measures 4.6 x 3.7 x3.9 cm. The left ovary demonstrates normal arterial and venous blood flowon color Doppler analysis. Complex left ovarian cyst is present containingsolid and cystic components measuring 4.5 x 2.1 x 3.1 cm. No discernibleinternal vascularity. There are no suspicious fluid collections within [id number]. IMPRESSION: Solid and cystic left ovarian lesion, not significantly changed, measuring4.5 cm. Little, if any, internal blood flow. Gynecology referralrecommended. Dictated by Sudhakar Contreras MD @ Jun 08 2023 12:50PM (Electronically Signed) Kika ATKINS US * SCAN-MRI INTERPRETATION (05/25/2023 12:00 AM COLOR PRINTER OPERATOR) Anatomical Region Laterality Modality Other Scanner OTHER * COMPLIANCE DRUG ANALYSIS [[id number]] (05/14/2023 10:36 AM COLOR PRINTER OPERATOR) 6-MONOACETYL MORPHINE NEG NEG ng/mL 05/18/2023 9:25 AM COLOR PRINTER OPERATOR [facility] AMPHETAMINE URINE NEG <=500 ng/mL 05/18/2023 9:25 AM COLOR PRINTER OPERATOR [facility] BARBITURATE URINE NEG <=200 ng/mL 05/18/2023 9:25 AM [facility] BENZODIAZEPINE URINE NEG <=100 ng/mL 05/18/2023 9:25 AM [facility] BUPRENORPHRINE URINE NEG <=5 ng/mL 04/22 9:25 AM [facility] COCAINE METAB URINE NEG <=300 ng/mL 05/18/2023 9:25 AM [facility] ETHYLGLUCURONIDE URINE NEG <=250 ng/mL 05/18/2023 9:25 AM [facility] FENTANYL URINE NEG <=4 ng/mL 05/18/2023 9:25 AM [facility] METHADONE URINE NEG <=300 ng/mL 05/18/2023 9:25 AM [facility] OPIATES URINE NEG <=300 ng/mL 05/18/2023 9:25 AM [facility] OXYCODONE URINE NEG <=100 ng/mL 05/18/2023 9:25 AM [facility] PROPOXYPHENE URINE NEG <=300 ng/mL 05/18/2023 9:25 AM [facility] THC 50 URINE NEG <=50 ng/mL 05/18/2023 9:25 AM [facility] TRAMADOL NEG <=200 ng/mL 05/18/2023 9:25 AM [facility] PH URINE 7.0 5.0 - 7.0 05/18/2023 9:25 AM [facility] CREAT UR 50 >=20 mg/dL 05/18/2023 9:25 AM [facility] MASS SPECTROMETRY URINE See Below 05/18/2023 9:25 AM [facility] Comment:Acetaminophen, Cital opram, Citalopram metabolite, Diphenhydramine, Gabapentin, Lamotrigine, Noroxycodone and Trazodone metabolite present. Urine URINE SPECIMEN / Unknown Non-Blood / Unknown 05/14/2023 10:36 AM [facility] 05/14/2023 10:46 AM [facility] - 05/18/2023 9:25 AM COLOR PRINTER OPERATOR Current Facility-Administered Medications: aluminum-magnesium hydroxide-simethicone (MAALOX PLUS; MYLANTA) 200 MG-200 MG-20 MG/5 ML suspension 30 mL, 30 mL, Oral, qid prn diazePAM (VALIUM) injection 10 mg, 10 mg, Intravenous, one time prn diazePAM 10-40 mg tablet (VALIUM), 10-40 mg, Oral, q1h prn Or diazePAM (VALIUM) injection 10-40 mg, 10-40 mg, Intravenous, q1h prn folic acid tablet 1 mg, 1 mg, Oral, daily LORazepam (ATIVAN) injection 5 mg, 5 mg, Intra-Muscular, q10min prn multivitamin with minerals tablet 1 Tablet, 1 Tablet, Oral, daily OLANzapine 10 mg tablet (ZYPREXA (FILM COATED TABLET)), 10 mg, Oral, q1h prn Or OLANzapine 10 mg in water sterile IM injection (ZYPREXA), 10 mg, Intra-Muscular, q2h prn OLANzapine 10 mg in water sterile IM injection (ZYPREXA), 10 mg, Intra-Muscular, q2h prn polyethylene glycol (MIRALAX; GLYCOLAX) packet 17 g, 17 g, Oral/NG Tube, daily prn QUEtiapine 25 mg tablet (SEROQUEL), 25 mg, Oral, q4h prn thiamine mononitrate (vit B1) 100 mg tablet (VITAMIN B1), 100 mg, Oral, daily Or thiamine (VITAMIN B1) injection 100 mg, 100 mg, Intravenous, daily traZODone (DESYREL) tablet 50 mg, 50 mg, Oral, bedtime prn MRx1 As of 05/12/2023 Release to patient->Immediate Tere Torres MD URINE [facility] [address] [place] [address], * (ABNORMAL) Drug screen, rapid urine inhouse TODAY (05/14/2023 10:36 AM COLOR PRINTER OPERATOR) THC METABOLITES,MAGI L Not Detected Not Detected 05/14/2023 11:00 AM COLOR PRINTER OPERATOR [facility] PCP,QUAL Not Detected Not Detected 05/14/2023 11:00 AM [facility] COCAINE,QUAL Not Detected Not Detected 05/14/2023 11:00 AM [facility] METHAMPHETAMINE , QUALITATIVE Not Detected Not Detected 05/14/2023 11:00 AM [facility] OPIATES,QUAL Not Detected Not Detected 05/14/2023 11:00 AM [facility] AMPHETAMINE, QUALITATIVE Not Detected Not Detected 05/14/2023 11:00 AM [facility] BENZODIAZEPINES ,QUAL Non-negative , consider further testing if indicated(A) Not Detected 05/14/2023 11:00 AM [facility] TRICYCLICS,QUAL Not Detected Not Detected 05/14/2023 11:00 AM [facility] METHADONE, QUALITATIVE Not Detected Not Detected 05/14/2023 11:00 AM [facility] BARBITURATES,QU AL Not Detected Not Detected 05/14/2023 11:00 AM [facility] OXYCODONE, QUALITATIVE Not Detected Not Detected 05/14/2023 11:00 AM [facility] BUPRENORPHINE, QUALITATIVE Not Detected Not Detected 05/14/2023 11:00 AM [facility] Urine URINE SPECIMEN / Unknown Non-Blood / Unknown 05/14/2023 10:36 AM [facility] 05/14/2023 10:[address] [facility] - 05/14/2023 11:00 AM [facility] Please Note: ?? This is a screening test only, all results are unconfirmed and should be used for medical purposes only. ??Unconfirmed results must not be used for non-medical purposes (e.g., employment testing, legal testing). ??Suggest analyte specific confirmation for all non-negative results. ??Specimens will be held for 24 hours if additional testing is needed. ?? The following threshold concentrations are used for this analysis: ? Drug ? Screening Threshold ? Buprenorphine ? 10 ng/mL PCP ? 25 ng/mL ?? THC Metabolites ? 50 ng/mL *Opiates ? 100 ng/mL Oxycodone ?100 ng/mL Cocaine ?150 ng/mL Benzodiazepines ?150 ng/mL ?? Methadone ?200 ng/mL ?? Barbiturates ? 200 ng/mL Tricyclic Antidepressants ?300 ng/mL ?? Amphetamines ? 500 ng/mL ?? Methamphetamines ? 500 ng/mL ?*Includes related compounds: ? Codeine ?50 ng/mL ? Heroin ?100 ng/mL ? Morphine ?100 ng/mL ? Hydrocodone ? 400 ng/mL ? Hydromorphone ? 800 ng/mL ?Venlafaxine (Effexor) is a known cross reactant in the PCP ?assay. ??If clinically indicated, order PCP confirmation. Rizwan Garcia MD URINE [facility] [address] [place] [address], * UA W/ SEDIMENT EXAM REFLEXED PER CRITERIA (05/14/2023 10:36 AM COLOR PRINTER OPERATOR) COLOR Yellow Yellow Color 05/14/2023 10:50 AM [facility] TRAL LABORATORY CLARITY Clear Clear Clarity 05/14/2023 10:50 AM [facility] SPECIFIC GRAVITY,URINE 1.010 1.010, 1.015, 1.020, 1.025 05/14/2023 10:50 AM [facility] PH,URINE 7.0 6.0, 7.0, 8.0, 5.5, 6.5, 7.5, 8.5 05/14/2023 10:50 AM [facility] TRAL LAB[facility] UROBILINOGEN, QUALITATIVE Normal Normal EU/dl 05/14/2023 10:50 AM [facility] PROTEIN, URINE Negative Negative mg/dL 05/14/2023 10:50 AM [facility] GLUCOSE, URINE Negative Negative mg/dL 05/14/2023 10:50 AM [facility] KETONES,URINE Negative Negative mg/dL 05/14/2023 10:50 AM [facility]AL LAB[facility] BILIRUBIN,URI NE Negative Negative 05/14/2023 10:50 AM [facility] OCCULT BLOOD,URINE Negative Negative 05/14/2023 10:50 AM [facility] NITRITE Negative Negative 05/14/2023 10:50 AM COLOR PRINTER OPERATOR [facility] TR[facility] LABORATORY LEUKOCYTE ESTERASE Negative Negative 05/14/2023 10:50 AM [facility] TRAL LAB[facility]ORY Urine URINE SPECIMEN / Unknown Non-Blood / Unknown 05/14/2023 10:36 AM COLOR PRINTER OPERATOR 05/14/2023 10:46 AM [facility] Tere Torres MD URINE [facility] [address] [place] [address], * (ABNORMAL) CBC WITH AUTO DIFFERENTIAL (05/14/2023 8:07 AM COLOR PRINTER OPERATOR) WHITE BLOOD COUNT 13.2(H) 4.5 - 11.0 thou/cu mm 05/14/2023 8:48 AM [facility] TRAL LAB[facility] RED BLOOD COUNT 4.05 4.00 - 5.20 mil/cu mm 05/14/2023 8:48 AM [facility] TR[facility] HEMOGLOBIN 11.3(L) 12.0 - 16.0 g/dL 05/14/2023 8:48 AM [facility] HEMATOCRIT 34.6 33.0 - 51.0 % 05/14/2023 8:48 AM [facility] MCV 85 80 - 100 fL 05/14/2023 8:48 AM [facility] MCH 27.9 26.0 - 34.0 pg 05/14/2023 8:48 AM [facility] MCHC 32.7 32.0 - 36.0 g/dL 05/14/2023 8:48 AM [facility] RDW 14.0 11.5 - 15.5 % 05/14/2023 8:48 AM [facility] PLATELET COUNT 400 140 - 440 thou/cu mm 05/14/2023 8:48 AM [facility] MPV 8.5 6.5 - 11.0 fL 05/14/2023 8:48 AM [facility] NRBC 0.0 % 05/14/2023 8:48 AM COLOR PRINTER OPERATOR [facility] TRAL LABORATORY ABS NRBC 0.0 thou /cu mm 05/14/2023 8:48 AM COLOR PRINTER OPERATOR [facility] TRAL LAB[facility] % NEUT 74.1 % 05/14/2023 8:48 AM [facility]AL LAB[facility] % LYMPH 16.7 % 05/14/2023 8:48 AM [facility] % MONO 6.8 % 05/14/2023 8:48 AM [facility] % EOS 1.4 % 05/14/2023 8:48 AM [facility] TRAL LAB[facility] % BASO 0.3 % 05/14/2023 8:48 AM [facility] % IMMATURE GRAN (METAS,MYELOS,ID OS) 0.7 % 05/14/2023 8:48 AM [facility] LAB[facility] ABSOLUTE NEUTROPHILS 9.8(H) 1.7 - 7.0 thou/cu mm 05/14/2023 8:48 AM [facility] LAB[facility] ABSOLUTE LYMPHOCYTES 2.2 0.9 - 2.9 thou/cu mm 05/14/2023 8:48 AM [facility] ABSOLUTE MONOCYTES 0.9(H) <0.9 thou/cu mm 05/14/2023 8:48 AM [facility] ABSOLUTE EOSINOPHILS 0.2 <0.5 thou/cu mm 05/14/2023 8:48 AM [facility] ABSOLUTE BASOPHILS 0.0 <0.3 thou/cu mm 05/14/2023 8:48 AM [facility] ABSOLUTE IMMATURE GRANULOCYTES(MET ,MYELOS,PROS) 0.1 <0.3 thou/cu mm 05/14/2023 8:48 AM [facility] TRAL [facility] Blood BLOOD SPECIMEN / Unknown Venipuncture / Unknown 05/14/2023 8:07 AM COLOR PRINTER OPERATOR 05/14/2023 8:38 AM COLOR PRINTER OPERATOR Tere Torres MD HEMATOLOGY [facility] [address] [place] [address], * HEMOGLOBIN A1C SCREENING (05/14/2023 8:07 AM COLOR PRINTER OPERATOR) HEMOGLOBIN A1C SCREENING 5.7 <=6.4 % 05/14/2023 12:42 PM COLOR PRINTER OPERATOR [facility] Blood BLOOD SPECIMEN / Unknown Venipuncture / Unknown 05/14/2023 8:07 AM COLOR PRINTER OPERATOR 05/14/2023 8:38 AM COLOR PRINTER OPERATOR Narrative [facility] - 05/14/2023 12:42 PM COLOR PRINTER OPERATOR ? (<5.7%) ?Normal ? (5.7% to 6.4%) ? Indicates prediabetes ? (>=6.5%) ? Confirms diabetes Falsely low levels may be seen with: Recent Transfusion, Recent Significant Blood Loss, Hemolytic Diseases, or Falsely elevated levels may be seen with: Untreated Anemias, Splenectomy Tere Torres MD CHEMISTRY Performing Organization Address [facility] Co de Phone Number [facility] [address] [place] [address], * TSH (05/14/2023 8:07 AM COLOR PRINTER OPERATOR) TSH 2.07 0.27 - 4.20 uIU/mL 05/14/2023 9:26 AM COLOR PRINTER OPERATOR [facility] Blood BLOOD SPECIMEN / Unknown Venipuncture / Unknown 05/14/2023 8:07 AM COLOR PRINTER OPERATOR 05/14/2023 8:39 AM COLOR PRINTER OPERATOR Narrative [facility] - 05/14/2023 9:26 AM COLOR PRINTER OPERATOR In Adults, TSH values between 5.00 and 10.00 uIU/ml do not necessarily indicate the presence of Hypothyroidism. Correlation with clinical findings such as presence of goiter and/or Thyroperoxidase (TPO) Antibody may be helpful. For more information please refer to [place] 2004; 291: 228-238. Tere Torres MD CHEMISTRY [facility] [address] [place] [address], * (ABNORMAL) LIPID PANEL (05/14/2023 8:07 AM COLOR PRINTER OPERATOR) CHOLESTEROL,TOTAL 258(H) 100 - 199 mg/dL 05/14/2023 9:26 AM COLOR PRINTER OPERATOR [facility] Comment: Cholesterol, Total Reference Ranges Desirable <200 mg/dL Borderline 200-239 mg/dL High >=240 mg/dL TRIGLYCERIDES 138 <150 mg/dL 05/14/2023 9:26 AM COLOR PRINTER OPERATOR [facility] HDL CHOLESTEROL 41 >40 mg/dL 9:26 AM COLOR PRINTER OPERATOR [facility] TRAL LAB[facility]ORY NON-HDL CHOLESTEROL 217(H) <145 mg/dl 05/14/2023 9:26 AM COLOR PRINTER OPERATOR [facility] TR[facility] LAB[facility] CHOL/HDL RATIO 6.29(H) <4.50 05/14/2023 9:26 AM COLOR PRINTER OPERATOR [facility] LDL CHOLESTEROL 189(H) <=130 mg/dL 05/14/2023 9:26 AM COLOR PRINTER OPERATOR [facility] TR[facility] LAB[facility]ATORY VLDL CHOLESTEROL 28 <=30 mg/dL 05/14/2023 9:26 AM COLOR PRINTER OPERATOR [facility] TRAL LABOR[facility] PROVIDER ORDERED STATUS RANDOM 05/14/2023 9:26 AM COLOR PRINTER OPERATOR [facility] TR[facility] LAB[facility] Blood BLOOD SPECIMEN / Unknown Venipuncture / Unknown 05/14/2023 8:07 AM COLOR PRINTER OPERATOR 05/14/2023 8:39 AM COLOR PRINTER OPERATOR Tere Torres MD CHEMISTRY Performing Organization Address City/[facility]/ZIP Co de Phone Number [facility] [address] [place] [address], [place] * (ABNORMAL) BASIC METABOLIC PANEL (05/14/2023 8:07 AM COLOR PRINTER OPERATOR) Only the most recent of2 resultswithin the time period is included. SODIUM 141 136 - 145 mmol/L 05/14/2023 9:26 AM [facility] TRAL LAB[facility]ORY POTASSIUM 3.7 3.5 - 5.1 mmol/L 05/14/2023 9:26 AM [facility] TRAL LAB[facility]ORY CHLORIDE 106 98 - 107 mmol/L 05/14/2023 9:26 AM [facility] TRAL LAB[facility] CO2,TOTAL 23 22 - 29 mmol/L 05/14/2023 9:26 AM [facility] TRAL LAB[facility]ORY ANION GAP 12 5 - 18 05/14/2023 9:26 AM [facility] TR[facility] LAB[facility] GLUCOSE 112(H) 70 - 99 mg/dL 05/14/2023 9:26 AM [facility] CALCIUM 9.3 8.6 - 10.0 mg/dL 05/14/2023 9:26 AM [facility] BUN 14 6 - 20 mg/dL 05/14/2023 9:26 AM [facility] TR[facility] LAB[facility] CREATININE 0.80 0.50 - 0.90 mg/dL 05/14/2023 9:26 AM [facility] TRAL LAB[facility] BUN/CREAT RATIO 18 10 - 20 9:26 AM [facility] TR[facility] LAB[facility] eGFR >90 >90 mL/min/1.7 3m2 05/14/2023 9:26 AM [facility] TRAL LAB[facility] Comment:As of 2021, eG FR is calculated by the CKD-EPI creatinine equation without race adjustment. ??eGFR can be influenced by muscle mass, exercise, and diet. ??The reported eGFR is an estimation only and is only applicable if the renal function is stable. Blood BLOOD SPECIMEN / Unknown Venipuncture / Unknown 05/14/2023 8:07 AM COLOR PRINTER OPERATOR 05/14/2023 8:39 AM [facility] Tere Torres MD [facility] [address] [place] [address], * Ethanol, serum TODAY (05/13/2023 12:07 PM COLOR PRINTER OPERATOR) ETHANOL <0.010 <0.010 g/dL 05/13/2023 1:02 PM COLOR PRINTER OPERATOR [facility] Blood BLOOD SPECIMEN / Unknown Butterfly / Unknown 05/13/2023 12:07 PM COLOR PRINTER OPERATOR 05/13/2023 12:22 PM COLOR PRINTER OPERATOR Rizwan Garcia MD [facility]MISTRY [facility] [address] [place] [address], [place] * SCAN-ULTRASOUND REPORT (05/12/2023 12:00 AM COLOR PRINTER OPERATOR) Only the most recent of2 resultswithin the time period is included. Anatomical Region Laterality Modality Other Scanner OTHER * SCAN-CT INTERPRETATION (05/12/2023 12:00 AM COLOR PRINTER OPERATOR) Only the most recent of4 resultswithin the time period is included. Anatomical Region Laterality Modality Other Scanner OTHER * HCHG MASK PR5 (04/12/2023 3:58 PM COLOR PRINTER OPERATOR) Narrative Beryl Ba CRNA - 04/12/2023 3:58 PM COLOR PRINTER OPERATOR Beryl Ba CRNA ? 04/12/2023 ??3:58 PM Procedure: Supraglottic Patient location during procedure: OR Supraglottic Airway Properties Mask Ventilation: easy Type: unique Tube Size: 4 Insertion Attempts: 1 Placement Verification: auscultation and CO2 detection Assessment Assessment: atraumatic and dentition unchanged Sujit Naranjo MD ANESTHESIA PX N OTE ORDERABLES * (ABNORMAL) CBC with Platelet no Diff (04/12/2023 12:37 PM COLOR PRINTER OPERATOR) WHITE BLOOD COUNT 12.3(H) 4.5 - 11.0 thou/cu mm 04/12/2023 12:46 PM COLOR PRINTER OPERATOR [facility] RED BLOOD COUNT 4.79 4.00 - 5.20 mil/cu mm 04/12/2023 12:46 PM COLOR PRINTER OPERATOR [facility] HEMOGLOBIN 13.1 12.0 - 16.0 g/dL 04/12/2023 12:46 PM [facility] HEMATOCRIT 39.6 33.0 - 51.0 % 04/12/2023 12:46 PM [facility] MCV 83 80 - 100 fL 04/12/2023 12:46 PM [facility] MCH 27.3 26.0 - 34.0 pg 04/12/2023 12:46 PM [facility] MCHC 33.1 32.0 - 36.0 g/dL 04/12/2023 12:46 PM [facility] RDW 14.3 11.5 - 15.5 % 04/12/2023 12:46 PM [facility] PLATELET COUNT 462(H) 140 - 440 thou/cu mm 04/12/2023 12:46 PM [facility] MPV 8.2 6.5 - 11.0 fL 04/12/2023 12:46 PM [facility] NRBC 0.0 % 04/12/2023 12:46 PM [facility] ABS NRBC 0.0 thou /cu mm 04/12/2023 12:46 PM COLOR PRINTER OPERATOR [facility] Blood BLOOD SPECIMEN / Unknown Venipuncture / Unknown 04/12/2023 12:37 PM COLOR PRINTER OPERATOR 04/12/2023 12:41 PM COLOR PRINTER OPERATOR Erlinda Degroot NP HEMATOLOGY [facility] SENDOUT INTERNAL ZIP [phone] [place] [id number] * Urine Lab Performed - [facility] Only (04/12/2023 12:10 PM COLOR PRINTER OPERATOR) ,URIN E Negative Negative 04/12/2023 12:38 PM COLOR PRINTER OPERATOR [facility] Urine URINE SPECIMEN / Unknown Non-Blood / Unknown 04/12/2023 12:10 PM COLOR PRINTER OPERATOR 04/12/2023 12:25 PM COLOR PRINTER OPERATOR Vamshi Wright MD URINE Performing Organization Address City/[facility]/ZIP Co de Phone Number [facility] [place] [address] [phone] [place] [address] * SCAN-CARDIAC STRIP (04/12/2023 12:00 AM COLOR PRINTER OPERATOR) Narrative 04/12/2023 12:00 AM COLOR PRINTER OPERATOR Ordered by an unspecified provider. Other Clinical Staff OTHER from Last 3 Months Advance Directives Latest Code Status on File Code Status Date Activated Date Inactivated Comments Full Code 05/13/2023 9:46 AM 05/17/2023 12:39 PM Question Answer Comments Code Status Discussion: Unable to Assess Preferences, Provider to review later Code Status History Code Status Date Activated Date Inactivated Comments Full Code 04/12/2023 12:08 PM 04/12/2023 9:37 PM Question Answer Comments Code Status Discussion: Unable to Assess Preferences, Provider to review later Care Teams Monkey Keeper Relationship Specialty Start Date End Date Kika Johnston PA [address] [place] [address] PCP - General Physician [employer] 02/11/21
--- OUTSIDE RECORDS SUMMARY | 2023-06-11 01:51 | XMS_ITS | Encounter Summary ---
Author Name Unknown Organization [facility] h Address [address] [place] [id number] Care Team Providers Care Printed Circuit Boards Router Name Role Phone [facility], [facility] Unavailable Kkia Johnston Primary Care Provider Reason for Visit * Reason Comments Hives Encounter Details Date Type Department Care Team (Late st Contact Info) Description 01/06/2023 2:52 PM CDT - 01/06/2023 3:18 PM CDT Emergency [facility] Emergency Department [address] [place] [id number] Chuck Hawkins MD [address] [facility] [address] [place] [address] Discharge Disposition: Returning Home/Self Care Social History Tobacco Use Types Packs/Day Years Used Date Smoking Tobacco: Every Day Cigarettes 0.5 Alcohol Use Standard Drinks/Week Comments Yes 0 (1 standard drink = 0.6 oz pur e alcohol) Sex and Gender Information Value Date Recorded Sex Assigned at Not on file Gender Identity Not on file Sexual Orientation Not on file documented as of this encounter Last Filed Vital Signs Vital Sign Reading Time Taken Comments Blood Pressure 127/75 01/06/2023 12:25 PM CDT Pulse 84 01/06/2023 12:25 PM CDT Temperature 36.7 ??C (98.1 ??F) 01/06/2023 12:25 PM C DT Respiratory Rate 16 01/06/2023 12:25 PM CDT Oxygen Saturation 97% 01/06/2023 12:25 PM CDT Inhaled Oxygen Concentration - - Weight - - Height - - Body Mass Index - - documented in this encounter Discharge Instructions * Attachments The following attachments cannot be sent through Care Everywhere. * Urticaria (AfterCare(R) Instructions(ER/ED)) (Mongolian) documented in this encounter Medications at Time of Discharge Medication Sig Dispensed Refills Start Date End Date IPRATROPIUM/ALBUTEROL SULFATE (IPRATROPIUM-ALBUTEROL INHL) by Inhalation route. 0 documented as of this encounter ED Notes * Yung Jj RN - 01/06/2023 3:15 PM CDT Upon arrival to ED room, pt reports she would like to discharge home. Declined DC vitals. Pt in no distress. Reports she has medications for allergies and verbalized understanding of when to return to ER. * Chuck Hawkins MD - 01/06/2023 3:08 PM CDT CHIEF COMPLAINT: Rash HPI: Initial history obtained at 3:08 PM 01/06/23. Jennifer Tellez is a 42 y.o. female who presents to the emergency department for evaluation of a rash. The patient reports that she developed hives earlier this week after using a new perfume and spraying it on her bed sheets, and this progressively worsened until she was admitted at [facility] with anaphylaxis on 01/04. She felt better when she was discharged yesterday. The patient reports that she has stopped using this perfume and has washed her sheets and clothes, but she continues to develop itchy, red hives. Last night into this morning, she developed worsened hives to the thigh/groin region, so she came in for re- evaluation. She has been taking prednisone, benadryl, pepcid, and zyrtec without relief. Her last dose of these medications was at 0530 this morning. The patient reports that she has been using 2.5% hydrocortisone cream, which helps a little. She denies any new exposures since being discharged. Independent Historian: None - Patient only Review of External Notes: I reviewed the patient's [place] discharge summary from yesterday. She was admitted on 01/04 with suspected anaphylaxis to a new perfume vs new laundry detergent. MEDICATIONS: Aripiprazole (Abilify) 10 Mg Oral Tablet Bupropion (Wellbutrin Xl) 300 Mg Oral Tablet 24 Hr Buspirone (Buspar) 10 Mg Oral Tablet Cepacol 15-3.6 Mg Mouth/Throat Lozenge Cetirizine (Zyrtec) 10 Mg Oral Tablet Citalopram (Celexa) 20 Mg Oral Tablet Diphenhydramine (Benadryl) 50 Mg Oral Capsule Epinephrine (Epipen / Auvi-q) 0.3 Mg/0.3 Ml Injection Famotidine (Pepcid) 20 Mg Oral Tablet Hydrocortisone 2.5% Externally Ointment Lamotrigine (Lamictal) 25 Mg Oral Tabs Prednisone (Deltasone) 20 Mg Oral Tablet Quetiapine (Seroquel) 25 Mg Oral Tabs PAST MEDICAL HISTORY: ADD (attention deficit disorder) Alcohol abuse Anaphylaxis Anorexia nervosa Asthma Chemical dependency Chondromalacia patellae Depression Generalized anxiety disorder Genital herpes Hammer toe Personality disorder Sleep difficulties Tobacco use PAST SURGICAL HISTORY: Hammer toe repair Aldrich teeth extraction Varicose vein surgery D&C PHYSICAL EXAM: Physical Exam Temperature: 98.1 ??F (36.7 ??C) Pulse: 84 Respirations: 16 BP: 127/75 SpO2: 97 % EYES: No icterus or injection ENT: Moist mucous membranes. No tongue or facial swelling. Normal speech. NECK: Good range of motion RESPIRATORY: Breathing comfortably on room air. Normal chest rise CARDIOVASCULAR: Normal peripheral perfusion SKIN: Urticarial rash to the thighs bilaterally. MSK: Without deformity or swelling NEUROLOGIC: The patient is awake and alert. Moving all extremities equally PSYCHIATRIC: Normal mood and affect. ED COURSE: Laboratory: Labs Reviewed CBC/DIFF - Abnormal; Notable for the following components: Result Value WBC 19.5 (*) PMN ABSOLUTE 17.63 (*) IG ABSOLUTE 0.15 (*) All other components within normal limits BASIC METAB PROFILE - Abnormal; Notable for the following components: GLUCOSE 122 (*) All other components within normal limits Assessments: Notable Events: Independent Interpretation (X-rays, CTs, rhythm strip): None Consultations/Discussion of Management or Tests: None Social Determinants of Health affecting care: None ED Vitals: Patient Vitals for the past 24 hrs: BP Temp Pulse Resp SpO2 01/06/23 1225 127/75 98.1 ??F (36.7 ??C) 84 16 97 % MDM: Jennifer Tellez is a 42 y.o. female presents for the above. The differential includes allergic reaction, anaphylaxis, urticarial rash. The patient does have urticarial rash. She has a benign evaluation otherwise and has no sign of anaphylaxis. The patient is already on steroids and antihistaminesand topical agents. She does have leukocytosis consistent with her steroid use without sign of infection. She likely has reexposure to same allergic agent. She is counseled about close monitoring of everything she is exposed to. There is no sign of of anaphylaxis or need for epinephrine. The patient is discharged home to follow-up closely with primary doctor and mule packer. She feels comfortable with this plan. DIAGNOSIS: ICD-10-CM 1. Urticaria L50.9 DISPOSITION: Discharged Discharge Medication List as of 01/06/2023 3:11 PM ATTESTATION: Scribe Attestation: I, Dot Marte, am serving as a scribe to document services personally performed by Chuck Hawkins MD, based on my observations and the provider's statements to me. Provider Attestation: Portions of this medical record were completed by a scribe. UPON MY REVIEW AND AUTHENTICATION BY ELECTRONIC SIGNATURE, this confirms (a) I performed the applicable clinical services, and (b) the record is accurate. Chuck Hawkins MD 01/06/23 01/06/2023 [facility] EMERGENCY DEPARTMENT * Jim Lowe RN - 01/06/2023 12:27 PM CDT Pt presents today for evaluation of hives. Hives started last Monday and have progressively gotten worse. Treated at [facility] for anaphylaxis 01/04. Initially was seen at [place] [facility] twice earlier this week. Pt reports that she felt better when d/c from [facility] yesterday. Today when she got up hives got markedly worse, especially in her groin area. Pt is very itchy, frequently scratching herself. Has some facial swelling, hives on arms, chest, neck, legs and groin. documented in this encounter Plan of Treatment Not on file documented as of this encounter Procedures Procedure Name Priority Date/Time Associated Diagnosis Comments BASIC METAB PROFILE STAT 01/06/2023 1 2:43 PM CDT CBC/DIFF STAT 01/06/2023 12:43 PM CDT documented in this encounter Results * (ABNORMAL) Basic Metabolic Profile (01/06/2023 12:43 PM CDT) Sodium 138 136 - 145 mmol/L ATELLICA ANALYZER 01/06/2023 1:13 PM CDT [facility] Potassium 3.5 3.4 - 5.1 mmol/L ATELLICA ANALYZER 01/06/2023 1:13 PM CDT [facility] Chloride 102 98 - 108 mmol/L ATELLICA ANALYZER 01/06/2023 1:13 PM CDT [facility] Carbon Dioxide 26 20 - 31 mmol/L ATELLICA ANALYZER 01/06/2023 1:13 PM CDT [facility] BUN (Urea Nitro) 10 9 - 23 mg/dL ATELLICA ANALYZER 01/06/2023 1:13 PM CDT [facility] Creatinine 0.73 0.55 - 1.02 mg/dL ATELLICA ANALYZER 01/06/2023 1:13 PM CDT [facility] Est GFR (CKD-EPI) >60.00 >60.00 mL/min/1. 73m2 ATELLICA ANALYZER 01/06/2023 1:13 PM CDT [facility] Comment:Calculation based on the Chronic Kidney Disease Epidemiology Collaboration (CKD-EPI) equation refit without adjustment for race. Glucose 122(H) 74 - 106 mg/dL ATELLICA ANALYZER 01/06/2023 1:13 PM CDT [facility] Calcium, Serum 9.2 8.7 - 10.4 mg/dL ATELLICA ANALYZER 01/06/2023 1:13 PM CDT [facility] Anion Gap 10.0 0.0 - 15.0 mmol/L ATELLICA ANALYZER 01/06/2023 1:13 PM CDT [facility] Blood 01/06/2023 12:4 3 PM CDT 01/06/2023 12:46 PM CDT Candido Miranda MD CHEMISTRY ORDERAB LE [facility] [address] [place] [address] * (ABNORMAL) CBC w/diff (01/06/2023 12:43 PM CDT) WBC 19.5(H) 4.3 - 10.8 K/uL 01/06/2023 12:57 PM CDT [facility] RBC 4.87 4.20 - 5.40 M/uL 01/06/2023 12:57 PM CDT [facility] Hemoglobin 13.4 12.0 - 16.0 gm/dL 01/06/2023 12:57 PM CDT [facility] Hematocrit 39.9 36.0 - 48.0 % 01/06/2023 12:57 PM CDT [facility] MCV 82 80 - 100 fL 01/06/2023 12:57 PM CDT [facility] MCH 28 27 - 33 pg 01/06/2023 12:57 PM CDT [facility] MCHC 34 33 - 36 gm/dL 01/06/2023 12:57 PM CDT [facility] RDW 13.2 11.5 - 14.5 % 01/06/2023 12:57 PM CDT [facility] Platelet Count 384 150 - 400 K/UL 01/06/2023 12:57 PM CDT [facility] MPV 8.7 6.5 - 12 fL 01/06/2023 12:57 PM CDT [facility] PMN % 90.3 % 01/06/2023 12:57 PM CDT [facility] IG % 0.8 <=1.0 % 01/06/2023 12:57 PM CDT [facility] Lymphocyte % 7.1 % 01/06/2023 12:57 PM CDT [facility] Monocyte % 1.5 % 01/06/2023 12:57 PM CDT [facility] Eosinophil % 0.1 % 01/06/2023 12:57 PM CDT [facility] Basophil % 0.2 % 01/06/2023 12:57 PM CDT [facility] PMN Absolute 17.63(H) 1.80 - 7.80 K/uL 01/06/2023 12:57 PM CDT [facility] IG ABSOLUTE 0.15(H) 0.00 - 0.00 K/uL 01/06/2023 12:57 PM CDT [facility] Lymphocyte Absolute 1.38 1.00 - 4.00 K/uL 01/06/2023 12:57 PM CDT [facility] Monocyte Absolute 0.30 0.00 - 1.00 K/uL 01/06/2023 12:57 PM [facility] Eosinophil Absolute 0.01 0.00 - 0.45 K/uL 01/06/2023 12:57 PM T [facility] Basophil Absolute 0.04 0.00 - 0.20 K/uL 01/06/2023 12:57 PM [facility] Nucl RBC % 0.0 0.0 - 0.0 /100 WBC 01/06/2023 12:57 PM [facility] Nucl RBC Absolute 0.00 0.00 - 0.00 K/uL 01/06/2023 12:57 PM [facility] Blood 01/06/2023 12:4 3 PM CDT 01/06/2023 12:46 PM CDT Candido Miranda MD HEMATOLOGY ORDERA BLE [facility] [address] [place] [address] documented in this encounter Visit Diagnoses Diagnosis Urticaria- Primary Urticaria, unspecified documented in this encounter Care Teams Printed Circuit Boards Router Relationship Specialty Start Date End Date [facility], [facility] [address] [place] [phone] PCP - Primary Care Clinic 01/06/23 Kkia Johnston PA [address] [facility] [place] [id number] PCP - General 01/06/23 documented as of this encounter
--- OUTSIDE RECORDS SUMMARY | 2023-06-11 01:51 | XMS_ITS | Referral Summary ---
Author Name Unknown Organization [facility] Address [address] [place] [id number] Care Team Providers Care Manager State Name Role Phone Clinic, [facility] Kika Johnston Primary Care Provider Allergies Active [...] Mass Index - - Plan of Treatment Not on file Care Teams Manager State Relationship Specialty Start Date End Date Clinic, [facility] [address] [place] [address] PCP - Primary Care Clinic 01/06/23 Kika Johnston PA [address] [place] [address] PCP - General 01/06/23
[2023-06-11] MEDS: 0.9 % SODIUM CHLORIDE 1000 ml 1,000 ML IV (02:02)
[2023-06-11] MEDS: KETOROLAC 30 MG/ML inj IVP (02:02)
[2023-06-11 02:03] LABS: Lactate* 1.1 mmol/L (0.5-1.9)
[2023-06-11 02:05] LABS: Basophils Percent Auto 0.4 % (0.0-3.0); Eosinophils Percent Auto 0.8 % (0.0-7.0); Hematocrit 40.4 % (33.0-51.0); Hemoglobin* 12.8 gm/dL (12.0-16.0); Immature Granulocytes Pct Auto 0.4 %; Mean Corpuscular HGB Conc 32 gm/dL (32-36); Mean Corpuscular Hemoglobin 27 pg (26-34); Mean Corpuscular Volume 86 fL (80-100); Monocytes Percent Auto 5.7 % (0.0-11.0); Neutrophils Percent Auto 78.7 % (42.0-72.0); Platelet Count* 421 K/uL (140-440); Red Blood Count 4.71 m/uL (4.00-5.20); White Blood Count* 13.37 K/uL (4.50-11.00)
[2023-06-11 02:06] LABS: Slide Review Reflex No
[2023-06-11] MEDS: PROMETHAZINE 25 MG/ML INJ 12.5 MG IVP (02:08)
[2023-06-11 02:17] LABS: Albumin* 4.6 g/dL (3.3-5.0); Chloride* 107 mmol/L (96-114)
[2023-06-11 02:18] LABS: Sodium* 141 mmol/L (135-149)
[2023-06-11 02:19] LABS: Bilirubin Direct* 0.2 mg/dL (0.0-0.5); Bilirubin Total* 0.6 mg/dL (0.1-1.5); Total Protein* 8.1 g/dL (6.0-8.3)
[2023-06-11 02:20] LABS: Alanine Aminotransferase* 68 U/L (4-35); Alkaline Phosphatase* 115 U/L (40-150); Aspartate Amino Transferase* 27 U/L (12-35); Creatinine* 0.7 mg/dL (0.5-1.5); Est. Creatinine Clearance* 115.82; Estimated Glomerular Filt Rate 110 ml/min
[2023-06-11 02:21] LABS: Anion Gap 9 mEq/L (7-15); Blood Urea Nitrogen* 15 mg/dL (5-24); Calcium* 9.7 mg/dL (8.4-10.6); Carbon Dioxide* 25 mmol/L (20-32); Glucose* 121 mg/dL (60-115)
[2023-06-11 02:24] LABS: C Reactive Protein* 2.8 mg/dL (0.5-1.0)
[2023-06-11 02:41] LABS: PCR FLU A Negative PCR FLU A (Negative); PCR FLU B Negative PCR FLU B (Negative); SARS PCR* Negative SARS-CoV-2 (Negative)
--- NOTE | 2023-06-11 02:56 | ED.NURSE ---
patient placed senior controller light and stated that she is having neck pain and it really hurts MD Berrios notified.
[2023-06-11] MEDS: LIDOCAINE 5% PATCH 1 PATCH TRANSDERMA (04:00)
[2023-06-11 04:05] LABS: Appearance Urine Cloudy (Clear); Bilirubin Urine 1+ (Negative); Blood Urine Negative (Negative); Color Urine Yellow (Yellow); Glucose Urine Negative (Negative); Ketones Urine Negative (Negative); Leukocyte Esterase Urine Negative (Negative); Nitrite Urine Negative (Negative); Protein Urine Trace (Negative); Specific Gravity Urine >= 1.030 (1.000-1.030); Urobilinogen Urine 0.2 (0.2-1.0); pH Urine 5.5 (5.0-8.5)
[2023-06-11 04:11] LABS: Bacteria Urine Moderate; RBC Urine 0-2 (0-2); Squamous Epithelial Cell Urine Few (None-Few); Ur HCG Qualitative* Negative (Negative)
== END 2023-06-11 05:35 | disposition home or self-care (01) ==
PROVIDERS: Emergency Provider Family Medicine; PCP Physician Assistant Medical
DX: M54.2 Cervicalgia (principal); R10.9 Unspecified abdominal pain; R11.10 Vomiting, unspecified
CPT/HCPCS: 36415; 80048; 80076; 81001; 81025; 83605; 85025; 86140; 87086; 87631; 96361; 96374; 96375; 99284; A9270; J1885; J2550; J7030

== ENCOUNTER 2023-06-14 15:47 | Outpatient (CLI) | payer MEDICARE, OTHER, SELFPAY | END 2023-06-14 15:48 | disposition home or self-care (01) | LOC: AMB 06-23 10:24 | PROVIDERS: PCP Physician Assistant Medical; Visit Provider Family Medicine | DX: R10.9 Unspecified abdominal pain (principal) | CPT/HCPCS: A0425; A0427 ==

== ENCOUNTER 2023-06-14 16:13 | Emergency (ER) | payer MEDICARE, OTHER, SELFPAY ==
[2023-06-14 16:22] VITALS: BP 142/70; PULSE 72; RESP 16; TEMP 36.9; O2SAT 99; BMI 39.1
--- NOTE | 2023-06-14 16:41 | CRLHL7_ITS ---
For Patients: As a result of the Century Cures Act, medical imaging exams and procedure reports are released immediately into your electronic medical record. You may view this report before your referring provider. If you have questions, please contact your health care provider. INDICATION: Left lower quadrant pain. Known comp structure on the left ovary. TECHNIQUE: Ultrasound pelvis transvaginal for better assessment or to better visualize the endometrium. Real-time sonographic images with spectral and color Doppler imaging of the ovaries were obtained. COMPARISON: Pelvic ultrasound 06/08/2023. CT abdomen and pelvis 09/12/2019 FINDINGS: Uterus: 7.2 x 4.3 x 4.4 cm cm. Normal echotexture of the myometrium. No masses. Endometrium: Thickness measures 6 mm. No sign of endometrial mass or fluid. Right ovary is not visualized. Left ovary measures 4.4 x 4.2 x 4.3 cm. Redemonstrated complex cystic structure in left ovary with both echogenic and hypoechoic components, which essentially occupies the majority of the ovarian parenchyma, measuring up to 4.4 cm. There is no internal vascular flow within the lesion. Normal arterial and venous blood flow is demonstrated in the left ovary. Cul-de-sac: No significant free fluid. IMPRESSION: 1. 4.4 cm complex cystic structure in the left ovary with both echogenic and hypoechoic components and no internal vascular flow. The appearance is most compatible with a dermoid, particularly given the appearance on the comparison CT. No evidence for ovarian torsion. 2. Nonvisualized right ovary. Dictated by Ray Calles MD @ 06/14/2023 6:56:17 PM (Electronically Signed)
--- NOTE | 2023-06-14 16:41 | CRLHL7_ITS ---
For Patients: As a result of the Century Cures Act, medical imaging exams and procedure reports are released immediately into your electronic medical record. You may view this report before your referring provider. If you have questions, please contact your health care provider. Indication: Diffuse pain Technique: Abdomen 3 view. Comparison: None. Findings/Impression: Bowel: Bowel pattern is normal. Moderate volume stool burden throughout the colon. Soft tissues: No sign of free air. No sign of soft tissue mass. No suspicious calcifications. Surgical clips in the right upper quadrant, right pelvis, and right inguinal region. Bones: Partially visualized left total hip arthroplasty; otherwise, the osseous structures are unremarkable. Dictated by Chaz Medina MD @ 06/14/2023 5:48:29 PM (Electronically Signed)
--- NOTE | 2023-06-14 16:46 | ED_ITS ---
HPI - General Adult General Chief complaint: Abdominal Pain Stated complaint: Abdominal pain Time Seen by Provider: 06/14/23 16:27 Source: patient Mode of arrival: EMS Limitations: no limitations History of Present Illness HPI narrative: 43-year-old female coming in today complaining of continued abdominal pain. Patient states that has been present now for 7 days. Pain is diffuse but sometimes concentrate as the left lower quadrant. Patient had ultrasound done on the 08 of June which showed an ovarian cyst. Patient called the triage line today and she was told she might have an ovarian torsion therefore she called EMS to get her to the ER today. She is requesting a repeat ultrasound and pain medications. She states that she has been having watery diarrhea for the last several days, feels very nauseated but does not vomit. States that she has been taking Zofran around the clock and is able to eat every 90 minutes so that there is always something in her stomach. She denies any urinary symptoms. No fevers. Patient was seen in our ER 3 days ago with similar symptoms, blood work at that time was unremarkable. Past medical history is quite complicated and includes PTSD, depression, pers onality disorder, anxiety, bipolar disorder, ADD, eating disorder, hoarding behavior, polysubstance use disorder. Related Data Home Medications Medication Instructions Recorded Confirmed aripiprazole 10 mg tablet 10 mg PO DAILY 09/30/22 06/10/23 bupropion HCl 300 mg 24 hr tablet, 300 mg PO QAM 09/30/22 06/10/23 extended release buspirone 10 mg tablet 10 mg PO TID 09/30/22 06/10/23 cholecalciferol (vitamin D3) 1,250 1,250 mcg PO QWEEK 09/30/22 06/10/23 mcg (50,000 unit) oral wafer citalopram 10 mg tablet 20 mg PO DAILY 09/30/22 06/10/23 ferrous sulfate 325 mg (65 mg 325 mg PO DAILY 09/30/22 06/10/23 iron) tablet gabapentin 300 mg capsule 300 mg PO QID 09/30/22 06/10/23 lamotrigine 25 mg tablet 50 mg PO DAILY 09/30/22 06/10/23 mirtazapine 7.5 mg tablet 7.5 mg PO HS 09/30/22 06/10/23 naproxen 500 mg tablet,delayed 500 mg PO BID 09/30/22 06/10/23 release (EC-Naproxen) omeprazole 20 mg tablet,delayed 20 mg PO DAILY 09/30/22 06/10/23 release sennosides 8.6 mg-docusate sodium 2 tab-cap PO BID 09/30/22 06/10/23 50 mg tablet (Senexon-S) acetaminophen 500 mg tablet 1,000 mg PO Q6H PRN pain 10/06/22 06/10/23 methocarbamol 500 mg tablet 500 mg PO QID 10/06/22 06/10/23 epinephrine 0.3 mg/0.3 mL IM 01/15/23 05/08/23 injection, auto-injector baclofen 10 mg tablet 10 mg PO 3XD 05/11/23 06/10/23 valacyclovir 500 mg tablet 500 mg PO DAILY 06/10/23 06/10/23 Previous Rx's Medication Instructions Recorded diphenhydramine HCl 25 mg capsule 50 mg (2 x 25 mg) PO TID PRN #30 01/02/23 (Benadryl) caps hydrocortisone 2.5 % lotion 1 applic topical BID PRN #59 mL 01/03/23 epinephrine 0.3 mg/0.3 mL 0.3 ml IM Q5-15M PRN #2 ea 01/15/23 injection, auto-injector ondansetron 4 mg disintegrating 4 mg PO QID PRN nausea and 04/21/23 tablet vomiting #10 tabs prednisone 20 mg tablet 20 mg PO BID 3 days #6 tabs 04/21/23 apixaban 5 mg tablet (Eliquis) 5 mg PO BID #60 tabs 05/08/23 prednisone 20 mg tablet 40 mg (2 x 20 mg) PO DAILY 5 days 05/22/23 #10 tabs Allergies Allergy/AdvReac Type Severity Reaction Status Date / Time shellfish derived Allergy Severe Anaphylaxis Verified 06/14/23 16:22 cephalexin [From Keflex] Allergy Intermediate Rash Verified 06/14/23 16:22 Cephalosporins Allergy Intermediate Rash Verified 06/14/23 16:22 Penicillins Allergy Intermediate Rash Verified 06/14/23 16:22 Review of Systems Status of ROS: Reports: 10 or more systems reviewed and unremarkable except as noted in History and below [facility] Medical History History of substance abuse ?F19.11 - Other psychoactive substance abuse, in remission (ICD-10) History of alcohol abuse ?F10.11 - Alcohol abuse, in remission (ICD-10) Femoral neck fracture ?S72.009A - Fracture of unspecified part of neck of unspecified femur, initial encounter for closed fracture (ICD-10) Cubital tunnel syndrome, bilateral ?G56.23 - Lesion of ulnar nerve, bilateral upper limbs (ICD-10) Obesity ?E66.9 - Obesity, unspecified (ICD-10) Substance use disorder ?F19.90 - Other psychoactive substance use, unspecified, uncomplicated (ICD- 10) Back problem ?M53.9 - Dorsopathy, unspecified (ICD-10) Anxiety ?F41.9 - Anxiety disorder, unspecified (ICD-10) Depression ?F32.A - Depression, unspecified (ICD-10) Asthma ?J45.909 - Unspecified asthma, uncomplicated (ICD-10) Surgical History Status post total hip replacement, 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) ?Z96.642 - Presence of left artificial hip joint (ICD-10) Status post laparoscopic cholecystectomy (09/13/19) ?Z90.49 - Acquired absence of other specified parts of digestive tract (ICD- 10) History of varicose vein ligation ?Z98.890 - Other specified postprocedural states (ICD-10) ?Z86.79 - Personal history of other diseases of the circulatory system (ICD- 10) Hx of hammer toe correction (10/22/03) ?Z98.890 - Other specified postprocedural states (ICD-10) ?Z87.39 - Personal history of other diseases of the musculoskeletal system and connective tissue (ICD-10) Family History Father Leukemia Social History Narrative: single, 2 kids, nonsmoker, no EtOH Highest level of school completed/degree received: Associate degree: occupational, technical, vocational program Smoking Status: Former smoker Do you use any of these nicotine containing products: None Second hand tobacco smoke exposure: No How often do you have a drink containing alcohol: never How often do you have six or more drinks on one occasion: Never AUDIT-C Alcohol total score: 0 Non-prescribed substance use: denies use Caffeine: Yes service: No Exam Narrative: Exam Narrative: Overweight, well-developed patient in no acute distress. Alert and oriented x3. Answers questions appropriately. Patient speaks in full sentences without needing to catch their breath. Mood is quite labile. HEENT: Normocephalic atraumatic. Pupils are equally round reactive to light. Extraocular muscles are intact. Conjunctivae are moist without any icterus noted. Moist mucous membranes. Posterior pharynx is normal. Neck is soft without any lymphadenopathy or thyromegaly. No masses are appreciated. Cardiovascular: Heart is regular rate and rhythm S1 and S2 are present without any murmurs. Lungs: Clear to auscultation bilaterally no wheezes rhonchi or rales are appreciated. Patient takes deep breaths without any discomfort. Abdomen: Soft and mildly distended with hypoactive bowel sounds. Patient has diffuse tenderness to minimal touching anywhere, however she can be distracted. She does begin crying when the abdomen is lightly palpated. Extremities: Bilateral lower extremities are without edema. Normal DP and PT pulses. Skin: Well perfused without any obvious rashes. Const: Vital Signs, click to edit/add: Vital Signs - 24 hr 06/14/23 16:22 Temperature 98.4 F Pulse Rate [Pulse Oximeter] 72 Respiratory Rate 16 Blood Pressure [Le ft Upper Arm] 142/70 H Pulse Oximetry 99 Oxygen Delivery Me thod Room Air Course Course ED Course: Blood work was repeated: CBC, chemistries, LFTs, lipase, UA all unremarkable. Ultrasound was ordered: 4.4 cm dermoid cyst of the left ovary. Flat and upright abdominal x-ray was done: Moderate stool burden. Patient was given IM Toradol which did help her pain quite a bit. Vital Signs Vital signs: Initial Vital Signs Temperature 98.4 F 06/14/23 16:22 Temperature Source Temporal Artery Scan 06/14/23 16:22 Pulse Rate 72 06/14/23 16:22 Respiratory Rate 16 06/14/23 16:22 Blood Pressure 142/70 H 06/14/23 16:22 Blood Pressure Mean 94 06/14/23 16:22 Blood Pressure Position Sitting 06/14/23 16:22 Pulse Oximetry 99 06/14/23 16:22 Oxygen Delivery Method Room Air 06/14/23 16:22 Vital Signs Temperature 98.4 F 06/14/23 16:22 Pulse Rate 72 06/14/23 16:22 Respiratory Rate 16 06/14/23 16:22 Blood Pressure 142/70 H 06/14/23 16:22 Pulse Oximetry 99 06/14/23 16:22 Oxygen Delivery Method Room Air 06/14/23 16:22 Temperature 98.4 F 06/14/23 16:22 Pulse Rate 72 06/14/23 16:22 Respiratory Rate 16 06/14/23 16:22 Blood Pressure 142/70 H 06/14/23 16:22 Pulse Oximetry 99 06/14/23 16:22 Oxygen Delivery Method Room Air 06/14/23 16:22 Medications Administered Medications: Discontinued Medications Generic Name Dose Route Start Last Admin Trade Name Freq PRN Reason Stop Dose Admin Ketorolac Tromethamine 60 mg 06/14/23 17:00 06/14/23 17:30 Ketorolac 60 Mg/2 Ml Inj IM 06/14/23 17:01 60 mg ONCE ONE Administration Medical Decision Making MDM Narrative Medical decision making narrative: 43-year-old female with a left-sided likely dermoid cyst. Patient instructed to use NSAIDs, heating pad for pain. Follow-up with OBGYN. Medical Records Medical records reviewed: Yes I reviewed the patient's medical records Lab Data Lab results reviewed: Yes I reviewed the patient's lab results Labs: Lab Results 06/14/23 06/14/23 Range/Units 16:35 18:00 WBC 12.89 H (4.50-11.00) K/uL RBC 4.32 (4.00-5.20) m/uL Hgb 11.6 L (12.0-16.0) gm/dL Hct 36.6 (33.0-51.0) % MCV 85 (80-100) fL MCH 27 (26-34) pg MCHC 32 (32-36) gm/dL RDW Coeff of Afshin 13.7 (11.5-15.5) % Plt Count 494 H (140-440) K/uL Neut % (Auto) 67.4 (42.0-72.0) % Lymph % (Auto) 24.4 (20-44) % Burnet % (Auto) 5.6 (0.0-11.0) % Eos % (Auto) 1.9 (0.0-7.0) % Baso % (Auto) 0.5 (0.0-3.0) % Neut # (Auto) 8.70 H (1.7-7.0) K/uL Lymph # (Auto) 3.10 H (0.90-2.90) K/uL Burnet # (Auto) 0.70 (0.00-0.90) K/UL Eos # (Auto) 0.20 (0.00-0.50) K/uL Baso # (Auto) 0.10 (0.00-0.30) K/uL Abs Immat Gran (auto) 0.00 (0.00-0.30) K/uL Imm/Tot Granulo (auto) 0.2 % Sodium 139 (135-149) mmol/L Potassium 3.7 (3.6-5.1) mmol/L Chloride 103 (96-114) mmol/L Carbon Dioxide 29 (20-32) mmol/L Anion Gap 7 (7-15) mEq/L BUN 12 (5-24) mg/dL Creatinine 0.7 (0.5-1.5) mg/dL Estimated Creat Clear 115.82 Estimated GFR 110 ml/min Glucose 92 (60-115) mg/dL Lactate 0.9 (0.5-1.9) mmol/L Calcium 9.2 (8.4-10.6) mg/dL Total Bilirubin 0.2 (0.1-1.5) mg/dL Direct Bilirubin 0.1 (0.0-0.5) mg/dL AST 23 (12-35) U/L ALT 37 H (4-35) U/L Alkaline Phosphatase 104 (40-150) U/L Total Protein 7.1 (6.0-8.3) g/dL Albumin 4.2 (3.3-5.0) g/dL Lipase 41 (23-300) U/L Urine Color Yellow (Yellow) Urine Appearance Clear (Clear) Urine pH 5.5 (5.0-8.5) Ur Specific Jackson < 1.005 (1.000-1.030) Urine Protein Negative (Negative) Urine Glucose (UA) Negative (Negative) Urine Ketones Negative (Negative) Urine Blood Negative (Negative) Urine Nitrite Negative (Negative) Urine Bilirubin Negative (Negative) Urine Urobilinogen 0.2 (0.2-1.0) Ur Leukocyte Esterase Negative (Negative) Urine RBC 0-2 (0-2) Urine WBC 0-2 (0-5) Ur Squamous Epith Cells Few (None-Few) Urine Bacteria None (None) Urine HCG, Qual Negative (Negative) Imaging Data Abdominal x-ray: Attestation: I have reviewed the pertinent imaging results. Radiologist's impression: Abdomen 3 view. Comparison: None. Findings/Impression: Bowel: Bowel pattern is normal. Moderate volume stool burden throughout the colon. Soft tissues: No sign of free air. No sign of soft tissue mass. No suspicious calcifications. Surgical clips in the right upper quadrant, right pelvis, and right inguinal region. Bones: Partially visualized left total hip arthroplasty; otherwise, the osseous structures are unremarkable. US - abdomen: Attestation: I have reviewed the pertinent imaging results. Radiologist's impression: INDICATION: Left lower quadrant pain. Known comp structure on the left ovary. TECHNIQUE: Ultrasound pelvis transvaginal for better assessment or to better visualize the endometrium. Real-time sonographic images with spectral and color Doppler imaging of the ovaries were obtained. COMPARISON: Pelvic ultrasound 06/08/2023. CT abdomen and pelvis 09/12/2019 FINDINGS: Uterus: 7.2 x 4.3 x 4.4 cm cm. Normal echotexture of the myometrium. No masses. Endometrium: Thickness measures 6 mm. No sign of endometrial mass or fluid. Right ovary is not visualized. Left ovary measures 4.4 x 4.2 x 4.3 cm. Redemon strated complex cystic structure in left ovary with both echogenic and hypoechoic components, which essentially occupies the majority of the ovarian parenchyma, measuring up to 4.4 cm. There is no internal vascular flow within the lesion. Normal arterial and venous blood flow is demonstrated in the left ovary. Cul-de-sac: No significant free fluid. IMPRESSION: 1. 4.4 cm complex cystic structure in the left ovary with both echogenic and hypoechoic components and no internal vascular flow. The appearance is most compatible with a dermoid, particularly given the appearance on the comparison CT. No evidence for ovarian torsion. 2. Nonvisualized right ovary. Discharge Plan Discharge Clinical Impression: Abdominal pain, Constipation, Ovarian cyst Patient Disposition: Home, Self-Care Condition: Stable Additional Instructions: Cyst of the over is largely unchanged. I do recommend you follow-up with your OBGYN. For constipation, would recommend starting daily MiraLax as directed, and increase fluid intake. Prescriptions: No Action lamotrigine 25 mg tablet 50 mg PO DAILY citalopram 10 mg tablet 20 mg PO DAILY bupropion HCl 300 mg tablet extended release 24 hr 300 mg PO QAM ferrous sulfate 325 mg (65 mg iron) tablet 325 mg PO DAILY cholecalciferol (vitamin D3) 1,250 mcg (50,000 unit) wafer 1,250 mcg PO QWEEK omeprazole 20 mg tablet,delayed release (DR/EC) 20 mg PO DAILY aripiprazole 10 mg tablet 10 mg PO DAILY mirtazapine 7.5 mg tablet 7.5 mg PO HS sennosides-docusate sodium [Senexon-S] 8.6-50 mg tablet 2 tab-cap PO BID naproxen [EC-Naproxen] 500 mg tablet,delayed release (DR/EC) 500 mg PO BID Hold Instructions: Resume on 11/07/22. Resume once you are no longer taking Tordol or aspirin buspirone 10 mg tablet 10 mg PO TID gabapentin 300 mg capsule 300 mg PO QID acetaminophen 500 mg tablet 1,000 mg PO Q6H PRN (Reason: pain) methocarbamol 500 mg tablet 500 mg PO QID diphenhydramine HCl [Benadryl] 25 mg capsule 50 mg PO TID PRNQty: 30 0RF hydrocortisone 2.5 % lotion 1 applic topical BID PRNQty: 59 0RF epinephrine 0.3 mg/0.3 mL auto-injector IM epinephrine 0.3 mg/0.3 mL auto-injector 0.3 ml IM Q5-15M PRNQty: 2 0RF Rx Instructions: do not exceed 3 doses per episode baclofen 10 mg tablet 10 mg PO 3XD prednisone 20 mg tablet 20 mg PO BID 3 Days Qty: 6 0RF ondansetron 4 mg tablet,disintegrating 4 mg PO QID PRN (Reason: nausea and vomiting) Qty: 10 0RF Eliquis 5 mg tablet 5 mg PO BID Qty: 60 2RF prednisone 20 mg tablet 40 mg PO DAILY 5 Days Qty: 10 1RF valacyclovir 500 mg tablet 500 mg PO DAILY Follow Up/Referrals: Kika Johnston PA-C [Primary Care Provider] - Stand Alone Forms: [email or web address] Info Instructions
--- OUTSIDE RECORDS SUMMARY | 2023-06-14 16:52 | XMS_ITS | Encounter Summary ---
Author Name Unknown Organization [facility] Address [address] [place] [address] Phone Care Team Providers Care Maintenance Supervisor Electrical Name Role Phone Unavailable Primary Care Provider Unavailabl e Reason for Referral * Consult/Test/Treat (Routine) - New Request Specialty Diagnoses / Procedures Referred By Devon t Referred To Contact Internal Medicine / MEDICINE Diagnoses Asthma, unspecified asthma severity, unspecified whether complicated, unspecified whether persistent Sudhakar Koenig MD [address] [place] [id number] PATIENT CHOICE Referral ID Status Reason Start Date Expiration Date V isits Requested Visits Authorized [id number] New Request 01/09/2023 01/10/2024 1 1 * Consult/Test/Treat (Routine) - Closed Specialty Diagnoses / Procedures Referred By Contac t Referred To Contact Dermatology / DERMATOLOGY Diagnoses Rash Anaphylaxis, initial encounter Sudhakar Koenig MD [address] [place] [address] Referral ID Status Reason Start Date Expiration Date Visits Re quested Visits Authorized [id number] Closed 01/09/2023 01/10/2024 1 1 Reason for Visit * Reason Comments Allergic Reaction Derm Problem * Auth/Cert (Routine) Specialty Diagnoses / Procedures Referred By Contac t Referred To Contact MEDICINE Diagnoses Hypokalemia Rash Petechiae Polyarthralgia Near syncope Anaphylaxis, initial encounter Leeann Bain MD [address] [place] [address] Medicine [address] [place] [address] Referral ID Status Reason Start Date Expiration Date Visits Re quested Visits Authorized [id number] 1 1 Encounter Details Date Type Department Care Team Description 01/07/2023 7:17 AM CDT - 01/09/2023 2:40 PM CDT Hospital Encounter [facility] Medicine [address] [place] [address] Leeann Bain MD [address] [place] [phone] Sudhakar Koenig MD [address] [place] [address] [address] [place], [place] [phone] Polyarthralgia Discharge Disposition: Discharged to home or [...] bipolar disorder Anxiety Chronic back pain Continue INVESTMENT SPECIALIST hydroxyzine, lamotrigine, mirtazapine, buspirone, bupropion, aripiprazole. H/o genital HSV Continue INVESTMENT SPECIALIST valacyclovir PERTINENT STUDIES & CONSULTS: Dermatology PENDING [...] needed. Please make an appointment with an [facility] provider: Order Comments: -- Please call [phone] [phone] to schedule an [facility] appointment with dermatology within 4 week(s) of [...] mg tablet Commonly known as: BUSPAR CHOLEcalciferol 58254 UNITS capsule Commonly known as: VITAMIN D3 [...] Your Medications These medications were sent to [facility] Discharge Pharmacy - [place] [id number] Hours: / albuterol 108 (90 BASE) mcg/act [...] hours as needed. 0 CHOLEcalciferol (VITAMIN D3) 19256 UNITS oral capsule Take 1 capsule (50,000 [...] bipolar disorder Anxiety Chronic back pain Continue INVESTMENT SPECIALIST hydroxyzine, lamotrigine, mirtazapine, buspirone, bupropion, aripiprazole. 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 H/o genital HSV Continue INVESTMENT SPECIALIST valacyclovir History of Present Illness: Jennifer Tellez is a 42 y.o. female with past medical history of asthma, bipolar disorder, PTSD, and varicose veins who presented 01/07/2023 with 1 week of rash and now polyarthralgia. According to the patient, she started developing a rash last Monday, after [place] the [place]. She presented to the ED in [place], where she received 1 dose Solu-Medrol and Benadryl. The rash did not improve so she presented again on Thursday 01/04, and she was transferred to [facility]. She was admitted and received epinephrine, Benadryl, [...] she lives alone in her apartment in [place] and has has had no changes in herecho environment, including soaps or detergents. She does not work, is on disability due to her mental illness. She states she used a body spray given to her by her friend on Monday however this issomething she has used in the past. She went swimming in [facility] Monday but did not submerge her neck [...] been living with her friend here in [place], and has not been back to her home in [place]. Her rash has not c hanged since [...] Indications: Acute Urticaria, Life-Threatening Hypersensitivity Reaction CHOLEcalciferol 51729 UNITS capsule Commonly known as: VITAMIN D3 [...] service at [facility] [employer] ([employer]) or [phone]. If no response within needed timeframe, please contact central pharmacy via phone at [phone]. * Rosaura Bergeron MD - 01/09/2023 8:00 AM CDTAssociated Order(s): CONSULT TO DERMATOLOGY [facility] and Forward Consult Note Jennifer [...] not hesitate to contact the dermatology resident/faculty medication specialist for any additional questions or concerns. Clinical photographs reviewed and case discussed with attending physician: Rubio Hernandez DO, MS PGY-2 Dermatology Resident [facility] 308:[phone] HPI Based on chart review and direct communication with consulting team - 42 y/o female h/o of bipolar 2, allergies including anaphylaxis to shellfish, rash w/ cephalosporins & penicillins, presenting with hives, itching, facial swelling, severe joint pain in her knees and arms, as well as significant dizziness with standing/ambulation. No intraoral or genital lesions. She was just seen in the [place] ED on the with suspected anaphylaxis to perfume. Notedsome itchiness and developed hives throughout her body which progressively worsened received steroids and Benadryl. However continued to sleep in the sheets w/ perfume spray on it and woke up with facial swelling and trouble breathing and AGAIN went to the [place] ER the was given epinephrine, steroids, Benadryl, famotidine and was transferred to [facility] where she was admitted and watched overnight [...] in real time. Please contact me via [facility] staff message if you note any errors requiring clarification. * Amy Martin RN - 01/07/2023 7:52 AM CDT Pt [facility] from home with reports of worsening [...] went to the ER on Monday in [place] where she received steroids and benadryl. Rash [...] that she was in a lai in [place] on Monday prior to onset, but she [...] We attempted to order a test for [place] spotted fever but were unable to identify [...] NOTE: Consulting team: Medicine consulted on 01/07/23 [facility]: Urticarial vs morbilliform rash and to restart [...] lesions. She was just seen in the [place] ED on the with suspected anaphylaxis to perfume. Noted some itchiness and developed hives throughout her body which progressively worsened received steroidsand Benadryl. However continued to sleep in the sheets w/ perfume spray on it and woke up with facial swelling and trouble breathing and AGAIN went to the [place] ER the was given epinephrine, steroids, Benadryl, famotidine and was transferred to [facility] where she was admitted and watched overnight [...] Shelli Hernandez DO, MS PGY-2 Dermatology Resident [facility] 01/08/23 11:37 * Nursing Assessment - Tammy [...] Shift Summary:pt was admitted from ED to [facility] R#[id number],pt is A&O,up independent,pt was comforted to [...] week ago and went to ER in [place] where she received steroids and Benadryl. Rash continued and patient woke up with facial swelling and trouble breathing so she returned to the ER and received epi, steroids, Benadryl and famotidine before transferring to [facility] for brief admission 01/04-. She was discharged [...] works. Also mentioning visiting or tongue [place] Monday but did not submerge her neck or head. In the ED patient had a normal EKG, bedside ultrasound, low potassium(which was replaced) and elevated WBC, C-reactive protein and ESR. Patient received Benadryl, Solu-Medrol, DuoNeb, mag for wheezing and epinephrine. IP admit order will be placed in accordance with the patient class designation above. Please page the BMS Team via [email or web address] with clinical updates or status changes. Note [...] she was also in a lai in [place] prior to developing the rash), Lyme disease, [...] CDT) Sodium 137 135 - 148 mEq/L [facility] Potassium 3.5 3.5 - 5.3 mEq/L [facility] Chloride 100 92 - 108 mEq/L [facility] CO2 27 22 - 30 mEq/L [facility] AnGap 10 8 - 16 mEq/L [facility] Glucose 80 70 - 100 mg/dL [facility] BUN 16 6 - 20 mg/dL [facility] Creatinine 0.89 0.50 - 1.00 mg/dL [facility] Calcium 9.3 8.6 - 10.0 mg/dL [facility] eGFR (2020 CKD-EPI) 83 >=60 ml/min/1.7 3m2 [facility] Comment: The estimated glomerular filtration rate (eGFR) was calculated using the CKD-EPI 2020 creatinine equation, which does not include race as a factor. This equation is validated in individuals 18 years of age and older, and eGFR is normalized to a body surface area of 1.73m^2. Blood 01/09/2023 7:05 AM CDT 01/09/2023 7:38 AM CDT Sudhakar Koenig MD LABORATORY Performing Organization Address [facility] Co de Phone Number [facility] [address] [address] * (ABNORMAL) CBC WITH PLATELET (01/09/2023 7:05 AM CDT) WBC 19.87(H) 4.00 - 10.00 k/cmm [facility] RBC 4.31 3.90 - 5.20 m/cmm [facility] Hgb 11.7 11.5 - 15.7 g/dL [facility] Hematocrit 36.1 34.0 - 45.0 % [facility] MCV 83.8 80.0 - 100.0 fL [facility] MCH 27.1 25.0 - 32.0 pg [facility] MCHC 32.4 31.0 - 36.0 g/dL [facility] RDW 13.5 11.5 - 14.5 % [facility] Plt 402(H) 150 - 400 k/cmm [facility] MPV 8.8 6.5 - 12.5 fL [facility] NRBC 0.1(H) 0.0 - 0.0 % [facility] Blood 01/09/2023 7:05 AM CDT 01/09/2023 7:38 AM CDT Sudhakar Koenig MD LABORATORY Performing Organization Address [facility] Co de Phone Number [facility] [address] [address] * ANCA-ASSOCIATED VASCULITIS PROFILE (ANCA/MPO/PR3) (01/08/2023 9:22 AM CDT) ANCA IFA Pattern None Detected None Detected [facility] Comment: INTERPRETIVE INFORMATION: ANCA IFA Pattern Neutrophil Cytoplasmic Antibodies (C-ANCA = granular cytoplasmic staining, P-ANCA = perinuclear staining) are found in the serum of over 90 percent of patients with certain necrotizing systemic vasculitides, and usually in less than 5 percent of patients with collagen vascular disease or arthritis. Performed By: [facility] [address] [place] [address] Treating Plant Supervisor: Alex Chau MD, PhD CLIA Number: [id number] ANCA IFA Titer <1:20 <1:20 [facility] [employer] Myeloperox Antibody 0 0 - 19 AU/ml [facility] Comment: INTERPRETIVE INFORMATION: Myeloperoxidase Abs, IgG ??19 AU/mL or Less ......... Negative ??20-25 AU/mL .............. Equivocal ??26 AU/mL or Greater ...... Positive Approximately 90% of patients with a P-ANCA pattern by IFA have antibodies specific for MPO. Serine Protease 3 0 0 - 19 AU/ml [facility] [employer] Comment: INTERPRETIVE INFORMATION: Serine Proteinase 3, IgG ??19 AU/mL or Less ........ Negative ??20-25 AU/mL ............. Equivocal ??26 AU/mL or Greater ..... Positive Approximately 85% of patients with a C-ANCA pattern by IFA have antibodies specific for PR3. Blood 01/08/2023 9:22 AM CDT 01/08/2023 9:51 AM CDT Sudhakar Koenig MD LABORATORY [address] [address], * HEPATITIS B SURFACE ANTIGEN (01/08/2023 9:12 AM CDT) HBV Surface Ag Nonreactive Nonreactive [facility] Comment: Testing performed at: [facility] [address] [address] Blood 01/08/2023 9:12 AM CDT 01/08/2023 9:46 AM CDT Sudhakar Koenig MD LABORATORY [facility] [address] [address] * HEPATITIS B SURFACE ANTIBODY (01/08/2023 9:12 AM CDT) HBsAb Interpretation Reactive [facility] Comment:Reactive implies imm unity. Blood 01/08/2023 9:12 AM CDT 01/08/2023 9:46 AM CDT Sudhakar Koenig MD LABORATORY Performing Organization Address [facility] Co de Phone Number [facility] [address] [address] * (ABNORMAL) PANEL BASIC METABOLIC (BMP) (01/08/2023 9:12 AM CDT) Pathologist [facility] Sodium 138 135 - 148 mEq/L [facility] Potassium 4.3 3.5 - 5.3 mEq/L [facility] Chloride 101 92 - 108 mEq/L [facility] CO2 24 22 - 30 mEq/L [facility] AnGap 13 8 - 16 mEq/L [facility] Glucose 104(H) 70 - 100 mg/dL [facility] BUN 11 6 - 20 mg/dL [facility] Creatinine 0.70 0.50 - 1.00 mg/dL [facility] Calcium 9.4 8.6 - 10.0 mg/dL [facility] eGFR (2020 CKD-EPI) 111 >=60 ml/min/1.7 3m2 [facility] Comment: The estimated glomerular filtration rate (eGFR) was calculated using the CKD-EPI 2020 creatinine equation, which does not include race as a factor. This equation is validated in individuals 18 years of age and older, and eGFR is normalized to a body surface area of 1.73m^2. Blood 01/08/2023 9:12 AM CDT 01/08/2023 9:46 AM CDT Sudhakar Koenig MD LABORATORY Performing Organization Address [facility]/ZIP Co de Phone Number [facility] [address] [address] * (ABNORMAL) CBC WITH PLATELET (01/08/2023 9:12 AM CDT) WBC 18.86(H) 4.00 - 10.00 k/cmm [facility] RBC 4.43 3.90 - 5.20 m/cmm [facility] Hgb 12.1 11.5 - 15.7 g/dL [facility] Hematocrit 36.7 34.0 - 45.0 % [facility] MCV 82.8 80.0 - 100.0 fL [facility] MCH 27.3 25.0 - 32.0 pg [facility] MCHC 33.0 31.0 - 36.0 g/dL [facility] RDW 13.5 11.5 - 14.5 % [facility] Plt 402(H) 150 - 400 k/cmm [facility] MPV 8.9 6.5 - 12.5 fL [facility] Blood 01/08/2023 9:12 AM CDT 01/08/2023 9:43 AM CDT Sudhakar Koenig MD LABORATORY Performing Organization Address City/[facility] Co de Phone Number [facility] [address] [place] [address] * COMPLEMENT C4 (01/08/2023 9:12 AM CDT) C4 17 13 - 39 mg/dL [facility] Blood 01/08/2023 9:12 AM CDT 01/08/2023 9:46 AM CDT Sudhakar Koenig MD LABORATORY Performing Organization Address City/[facility]/ZIP Co de Phone Number [facility] [address] [place] [address] * COMPLEMENT C3 (01/08/2023 9:12 AM CDT) C3 144 81 - 157 mg/dL [facility] Blood 01/08/2023 9:12 AM CDT 01/08/2023 9:46 AM CDT Sudhakar Koenig MD LABORATORY [facility] [address] [address] * HEPATITIS C ANTIBODY WITH CONDITIONAL PCR (01/08/2023 9:12 AM CDT) Hep C Blanca Nonreactive Nonreactive [facility] Comment:Performance characte ristics have not been established with this test on patients less than 10 years of age. Blood 01/08/2023 9:12 AM CDT 01/08/2023 9:46 AM CDT Sudhakar Koenig MD LABORATORY Performing Organization Address City/[facility] Co de Phone Number [facility] [address] [address] * RHEUMATOID FACTOR (01/08/2023 9:12 AM CDT) Pathologist [facility] Rheumotoid Factor <7 <=13 IU/mL [facility] Rheum Factor Interp Negative Negative [facility] Blood 01/08/2023 9:12 AM CDT 01/08/2023 9:46 AM CDT Sudhakar Koenig MD LABORATORY Performing Organization Address [facility] Co de Phone Number [address] [address] * FELIZ SCREEN(NUCLEAR ANTIBODY IGG) (01/08/2023 9:12 [...] not necessarily rule out SARD. Performed By: [facility] [address] [place] [address] Treating Plant Supervisor: Alex Chau MD, PhD CLIA Number: [id number] NUCLEAR ANTIBODY (FELIZ) IGG NOTES: WHEN OBSERVED, ONE OF THE FIVE BASIC PATTERNS IS REPORTED: HOMOGENEOUS, PERIPHERAL/RIM, SPECKLED, CENTROMERE OR NUCLEOLAR. IF CYTOPLASMIC FLUORESCENT IS OBSERVED, IT IS NOTED. TEST PERFORMED BY: [email or web address] [address] [place] [address] Serum 01/08/2023 9:12 AM CDT 01/08/2023 10:01 AM CDT Sudhakar Koenig MD LABORATORY [employer] [address] [place] [address], * HIV COMBO (01/07/2023 10:18 PM CDT) Pathologist [facility] HIV Antigen-Antibody Nonreactive Nonreactive [facility] Comment:Performance characte ristics have not been established with this test on patients less than 2 years of age. Blood 01/07/2023 10:1 8 PM CDT 01/07/2023 10:46 PM CDT Sudhakar Koenig MD LABORATORY [facility] [address] [address] * ED POTASSIUM (01/07/2023 1:10 PM CDT) Potassium 3.6 3.5 - 5.3 mEq/L [facility] Blood 01/07/2023 1:10 PM CDT 01/07/2023 1:23 PM CDT Emma Esparza PA-C LABORATORY Performing Organization Address [facility] de Phone Number [facility] [address] [address] * (ABNORMAL) GLYCOSYLATED HGB - A1C (01/07/2023 8:11 AM CDT) Hemoglobin A1C 5.7(H) 4.0 - 5.6 % [facility] Comment: Increased risk for diabetes (prediabetes): 5.7-6.4% Diabetes: greater than or equal to 6.5% * * In the absence of unequivocal hyperglycemia, diagnosis requires two abnormal test results (i.e. HbA1c and glucose) or two abnormal results from specimens collected at two different timepoints. Estimated Average Glucose 117 68 - 126 [facility] Comment: The ADA recommends reporting an estimated Average Glucose (eAG) with all hemoglobin A1c results using the equation derived from a study of 501 normal diabetic adults. Minority populations were underrepresented and children were not included. The EAG is not equivalent to a fasting glucose. Blood 01/07/2023 8:11 AM CDT 01/07/2023 10:02 AM CDT Leeann Bain MD LABORATORY Performing Organization Address City/[facility] Co de Phone Number [facility] [address] [address] * (ABNORMAL) CBC WITH PLTS/AUTO DIFF (01/07/2023 8:11 AM CDT) WBC 13.09(H) 4.00 - 10.00 k/cmm [facility] RBC 4.99 3.90 - 5.20 m/cmm [facility] Hgb 13.6 11.5 - 15.7 g/dL [facility] Hematocrit 41.4 34.0 - 45.0 % [facility] MCV 83.0 80.0 - 100.0 fL [facility] MCH 27.3 25.0 - 32.0 pg [facility] MCHC 32.9 31.0 - 36.0 g/dL [facility] RDW 13.2 11.5 - 14.5 % [facility] Plt 422(H) 150 - 400 k/cmm [facility] MPV 9.3 6.5 - 12.5 fL [facility] Automated Abs Neutrophil 10.07(H) 1.70 - 6.50 k/cmm [facility] Comment:Preliminary ANC, Fin al Result to Follow Abs Immature Granulocyte 0.12(H) 0.00 - 0.09 k/cmm [facility] Comment:The Immature Granulo cyte Absolute count contains metamyelocytes and myelocytes. Abs Neutrophil 10.07(H) 1.70 - 6.50 k/cmm [facility] Abs Lymphocyte 2.55 0.80 - 4.00 k/cmm [facility] Abs Monocyte 0.24 0.20 - 1.00 k/cmm [facility] Abs Eosinophil 0.09 0.00 - 0.60 k/cmm [facility] Abs Basophil 0.02 0.00 - 0.20 k/cmm [facility] Blood 01/07/2023 8:11 AM CDT 01/07/2023 9:59 AM CDT Leeann Bain MD LABORATORY [facility] [address] [address] * MAGNESIUM (01/07/2023 8:11 AM CDT) Magnesium 2.0 1.6 - 2.6 mg/dL [facility] Blood 01/07/2023 8:11 AM CDT 01/07/2023 8:59 AM CDT Leeann Bain MD LABORATORY [facility] [address] [address] * HS TROPONIN (01/07/2023 8:11 AM CDT) HS Troponin I <3 <=14 ng/L [facility] Blood 01/07/2023 8:11 AM CDT 01/07/2023 8:59 AM CDT Narrative [facility] - 01/07/2023 9:35 AM CDT First Occurrence of the Troponin order is to be drawn Stat by Nursing staff on the unit. Leeann Bain MD LABORATORY Performing Organization Address City/[facility]/ZIP Co de Phone Number [facility] [address] [address] * RPR SYPHILIS SCREEN (01/07/2023 8:11 AM CDT) RPR Screen Non-Reactive Non-Reacti ve [facility] RPR Titer Not Reflexed [facility] Blood 01/07/2023 8:11 AM CDT 01/07/2023 9:00 AM CDT Leeann Bain MD LABORATORY Performing Organization Address [facility] Co de Phone Number [facility] [address] [address] * BLOOD AEROBIC/ANAEROBIC CULTURE (01/07/2023 8:11 AM CDT) Final Report No growth after 5 days. [facility] Blood (Peripheral) 01/07/2023 8:11 AM CDT 01/07/2023 9:39 AM CDT Narrative [facility] [facility] [place] [facility] - 01/13/2023 8:01 AM CDT Blood volume less than 5 mL. Culture results may be compromised. Suggest repeat collection. Leeann Bain MD LAB MICROBIOLOGY Performing Organization Address [facility] Co de Phone Number [address] [address] * BLOOD AEROBIC/ANAEROBIC CULTURE (01/07/2023 8:11 AM CDT) Final Report No growth after 5 days. [facility] Blood (Peripheral) 01/07/2023 8:11 AM CDT 01/07/2023 5:56 PM CDT Narrative [facility] [place] [facility] - 01/13/2023 8:01 AM CDT collected at 1530 01/07/2023 15:38:20 [facility] Blood volume less than 5 mL. Culture results may be compromised. Suggest repeat collection. Leeann Bain MD LAB MICROBIOLOGY [facility] [address] [address] * ANTISTREPTOLYSIN O BLANCA (ASO) (01/07/2023 8:11 AM CDT) ASO Blanca <55 <=330 IU/mL [facility] Comment: REFERENCE INTERVAL: Streptolysin O Antibody Elevated [...] of a recent Streptococcus infection. Performed By: [facility] [address] [place] [address] Treating Plant Supervisor: Alex Chau MD, PhD CLIA Number: [id number] Serum 01/07/2023 8:11 AM CDT 01/07/2023 8:59 AM CDT Leeann Bain MD LABORATORY Performing Organization Address City/[facility]/ZIP Co de Phone Number [facility] [phone] [place] [address], * LIPASE (01/07/2023 8:11 AM CDT) Lipase 15 13 - 60 IU/L [facility] Blood 01/07/2023 8:11 AM CDT 01/07/2023 8:59 AM CDT Leeann Bain MD LABORATORY Performing Organization Address [facility] de Phone Number [facility] [address] [address] * (ABNORMAL) PANEL HEPATIC FUNCTION (01/07/2023 8:11 AM CDT) Total Protein 6.0(L) 6.4 - 8.3 g/dL [facility] Albumin 3.5(L) 3.8 - 5.1 g/dL [facility] Bili Total 0.3 <=1.2 mg/dL [facility] Bili Direct <0.2 <=0.3 mg/dL [facility] Alk Phos 78 35 - 104 IU/L [facility] ALT (SGPT) 21 <=33 IU/L [facility] AST(SGOT) 18 5 - 40 IU/L [facility] Blood 01/07/2023 8:11 AM CDT 01/07/2023 8:59 AM CDT Leeann Bain MD LABORATORY Performing Organization Address [facility] de Phone Number [facility] [address] [address] * LYME ANTIBODY SCREEN WITH REFLEX TO IGM/IGG BY AYANA (MODIFIED TWO TIER TESTING) (01/07/2023 8:11 AM CDT) B. burgdorferi VlsE1/pepC10 Abs, AYANA 0.62 <=0.90 IV [facility] Comment: When the Borrelia burgdorferi VlsE1/pepC10 [...] ?antibodies to B. burgdorferi ?detected. Performed By: [facility] [address] [place] [address] Treating Plant Supervisor: Alex Chau MD, PhD CLIA Number: [id number] Serum 01/07/2023 8:11 AM CDT 01/07/2023 8:59 AM CDT Leeann Bain MD LABORATORY Performing Organization Address City/State/[facility] Co de Phone Number [facility] [phone] [place] [address], * (ABNORMAL) CBC WITH PLATELET (01/07/2023 8:11 AM CDT) WBC 13.17(H) 4.00 - 10.00 k/cmm [facility] RBC 4.93 3.90 - 5.20 m/cmm [facility] Hgb 13.4 11.5 - 15.7 g/dL [facility] Hematocrit 40.5 34.0 - 45.0 % [facility] MCV 82.2 80.0 - 100.0 fL [facility] MCH 27.2 25.0 - 32.0 pg [facility] MCHC 33.1 31.0 - 36.0 g/dL [facility] RDW 13.2 11.5 - 14.5 % [facility] Plt 407(H) 150 - 400 k/cmm [facility] MPV 8.8 6.5 - 12.5 fL [facility] Blood 01/07/2023 8:11 AM CDT 01/07/2023 9:00 AM CDT Leeann Bian MD LABORATORY Performing Organization Address [facility]/ZIP Co de Phone Number [facility] [address] [address] * (ABNORMAL) ED CHEMISTRY LABS(NA,K,CL,CO2,GLU,CREAT,CA-IONIZED,ANION GAP) (01/07/2023 8:11 AM CDT) Sodium 137 135 - 148 mEq/L [facility] Potassium 2.9(AA) 3.5 - 5.3 mEq/L [facility] Comment:Critcal Result Low Chloride 104 92 - 108 mEq/L [facility] AnGap 11 8 - 16 mEq/L [facility] Glucose 96 70 - 100 mg/dL [facility] ICA, Actual 4.30(L) 4.40 - 5.20 mg/dL [facility] ICA, pH Corrected 4.41 4.40 - 5.20 mg/dL [facility] Creatinine 0.93 0.50 - 1.00 mg/dL [facility] BICARB 23 22 - 26 mEq/L [facility] eGFR (2020 CKD-EPI) 79 >=60 ml/min/1.7 3m2 [facility] Comment: The estimated glomerular filtration rate (eGFR) was calculated using the CKD-EPI 2020 creatinine equation, which does not include race as a factor. This equation is validated in individuals 18 years of age and older, and eGFR is normalized to a body surface area of 1.73m^2. Blood 01/07/2023 8:11 AM CDT 01/07/2023 8:51 AM CDT Narrative [facility] - 01/07/2023 8:57 AM CDT Critical value for Potassium called to and read back by Amy Martin RN in ED Team Center B at 01/07/2023 08:57:07 CDT by Sharyn Vincent. Leeann Bain MD LABORATORY Performing Organization Address City/[facility]/ZIP Co de Phone Number [facility] [address] [address] * (ABNORMAL) SED RATE (ESR) (01/07/2023 8:11 AM CDT) Sed Rate 25(H) 2 - 20 mm/hr [facility] Blood 01/07/2023 8:11 AM CDT 01/07/2023 9:00 AM CDT Leeann Bain MD LABORATORY Performing Organization Address [facility] Co de Phone Number [facility] [address] [address] * (ABNORMAL) C-REACTIVE PROTEIN - HS (01/07/2023 8:11 AM CDT) C-Reactive Protein - HS 17.47(H) <=5.00 mg/L [facility] Comment: Low cardiovascular risk: 0.0-1.0 mg/L Moderate cardiovascular risk: 1.0-3.0 mg/L High cardiovascular risk: >3.0 mg/L Blood 01/07/2023 8:11 AM CDT 01/07/2023 8:59 AM CDT Leeann Bain MD LABORATORY Performing Organization Address [facility] Co de Phone Number [facility] [address] [address] * ED EKG (12-LEAD) (01/07/2023 8:06 AM CDT) 01/07/2023 8:06 AM CDT Impressions [facility] [place] [facility]IS EKG ORDERS - 01/07/2023 8:06 AM CDT SINUS RHYTHM ST DEVIATION AND MODERATE T-WAVE ABNORMALITY, CONSIDER ANTEROLATERAL ISCHEMIA ??[-0.1+ mV T-WAVE IN V3-V6] ABNORMAL ECG P-R Interval 148 ms QRS Interval 86 ms QT Interval 330 ms QTC Interval 383 ms P Canton 52 QRS Canton 2 T Wave Canton 10 Narrative Procedure Note Yordy Diaz MD - 01/07/[address] DEVIATION AND MODERATE T-WAVE ABNORMALITY, CONSIDER ANTEROLATERALISCHEMIA [- 0.1+ mV T-WAVE IN V3-V6] ABNORMAL ECG P-R Interval 148 ms QRS Interval 86 ms QT Interval 330 ms QTC Interval 383 ms P [place]on 52 QRS Canton 2 T Wave Canton 10 Leeann Bain MD EKG [facility] EKG ORDERS * ED US CARDIAC (01/07/2023 7:57 AM CDT) Anatomical Region Laterality Modality Ultrasound Narrative 01/07/2023 4:24 PM CDT ED Cardiac Ultrasound Body Areas Imaged: Heart and Chest Wall/Lungs Indications:Shortness of Breath/Hypoxia Window: Parasternal Short Canton, Parasternal Long Canton, Apical 4-Chamber, and Bilateral Lungs Findings: The [...] 300 mg, Oral, DAILY, First dose on [place] 01/08/23 at 0800, Until Discontinued Given 01/09/2023 [...] 1913 (Given - Provider: George Gray RN) 0739 [...] Tammy Michael, [place]) 0809 (Given - Provider: Shrery Shipman, [place]) magnesium sulfate 2 g IVPB [...]
--- OUTSIDE RECORDS SUMMARY | 2023-06-14 16:52 | XMS_ITS | Encounter Summary ---
Author Name Unknown Organization Formerly Named [facility] Address [address] [place] [address] Phone Care Team Providers Care Tax Advisor Name Role Phone Unavailable Primary Care Provider Unavailabl e Reason for Visit * Reason Comments Referral RashAnaphylaxis * Consult/Test/Treat (Routine) - Closed Specialty Diagnoses / Procedures Referred By Contfloresita t Referred To Contact Dermatology / DERMATOLOGY Diagnoses Rash Anaphylaxis, initial encounter Sudhakar Koenig MD [address] [place] [address] Referral ID Status Reason Start Date Expiration Date Visits Re quested Visits Authorized [id number] Closed 01/09/2023 01/10/2024 1 1 Encounter Details Date Type Department Care Team Description 01/16/2023 2:45 PM CDT Office Visit Clinic [facility] Specialty [facility] Dermatology Clinic [address] [address] Rosaura Bergeron MD [address] [place] [id number], Derm Resident [address] [place] [phone] Urticaria (Primary Dx) Discharge Disposition: Discharged to [...] presents with hives on the skin, a stockroom keeper can often make the diagnosis by looking at the skin. Finding the cause of hives, however, can sometimes be hard. This is especially true for hives that have been around for more than 6 weeks. To find out what is causing your hives; your stockroom keeper will review your health history, ask questions, and do a physical exam. A skin biopsy, blood work and or allergy testing may be needed. Treatment For mild or moderate case of hives, the most common treatment is an antihistamine. Antihistamines relieve symptoms like itching. Not all hives require treatment. If you have chronic hives, your stockroom keeper may prescribe an antihistamine. You should take this medicine every day to prevent hives from forming, unless directed otherwise by your stockroom keeper. Some antihistamines make you drowsy, and some do not. No one antihistamine works for everyone. Your stockroom keeper may combine an antihistamine with other medicines to control the hives. Your stockroom keeper will work with you to formulate that best plan possible for treatment and prevention. If you have questions or concerns regarding a hives outbreak, please feel free to contact our clinic at [phone]. References: [email or web address] documented in this encounter Progress Notes * Sujit Mccurdy MD - 01/16/2023 2:45 PM CDT Images from the original note were not included. [facility] Dermatology Clinic: Hospital Follow up Jennifer Tellez 42 y.o. female [id number] Dermatology Problem List: # Acute urticaria - [...]
--- OUTSIDE RECORDS SUMMARY | 2023-06-14 16:52 | XMS_ITS | Clinical Summary ---
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 mass, exercise, and diet. ??The reported eGFR is an estimation only and is only applicable if the renal function is stable. Blood BLOOD SPECIMEN / Unknown Venipuncture / Unknown 05/14/2023 8:07 AM WEDDING DESIGNER 05/14/2023 8:39 AM [facility] Tere Torres MD CHEMISTRY [facility] [address] [place] [address], * Ethanol, serum TODAY (05/13/2023 12:07 PM [facility]) ETHANOL <0.010 <0.010 g/dL 05/13/2023 1:02 PM [facility] Blood BLOOD SPECIMEN / Unknown Butterfly / Unknown 05/13/2023 12:07 PM WEDDING DESIGNER 05/13/2023 12:22 PM WEDDING DESIGNER Rizwan Garcia MD CHEMISTRY [facility] [address] [place] [address], [place] * SCAN-ULTRASOUND REPORT (05/12/2023 12:00 AM WEDDING DESIGNER) Only the most recent of2 resultswithin the time period is included. Anatomical Region Laterality Modality Other Scanner OTHER * SCAN-CT INTERPRETATION (05/12/2023 12:00 AM WEDDING DESIGNER) Only the most recent of4 resultswithin the time period is included. Anatomical Region Laterality Modality Other Scanner OTHER * HCHG MASK PR5 (04/12/2023 3:58 PM WEDDING DESIGNER) Narrative Beryl Ba CRNA - 04/12/2023 3:58 PM WEDDING DESIGNER Beryl Ba CRNA ? 04/12/2023 ??3:58 PM Procedure: Supraglottic Patient location during procedure: OR Supraglottic Airway Properties Mask Ventilation: easy Type: unique Tube Size: 4 Insertion Attempts: 1 Placement Verification: auscultation and CO2 detection Assessment Assessment: atraumatic and dentition unchanged Sujit Naranjo MD ANESTHESIA PX N OTE ORDERABLES * (ABNORMAL) CBC with Platelet no Diff (04/12/2023 12:37 PM WEDDING DESIGNER) WHITE BLOOD COUNT 12.3(H) 4.5 - 11.0 thou/cu mm 04/12/2023 12:46 PM WEDDING DESIGNER [facility] RED BLOOD COUNT 4.79 4.00 - 5.20 mil/cu mm 04/12/2023 12:46 PM WEDDING DESIGNER [facility] HEMOGLOBIN 13.1 12.0 - 16.0 g/dL 04/12/2023 12:46 PM WEDDING DESIGNER [facility] HEMATOCRIT 39.6 33.0 - 51.0 % 04/12/2023 12:46 PM WEDDING DESIGNER [facility] MCV 83 80 - 100 fL 04/12/2023 12:46 PM WEDDING DESIGNER [facility] MCH 27.3 26.0 - 34.0 pg 04/12/2023 12:46 PM [facility] MCHC 33.1 32.0 - 36.0 g/dL 04/12/2023 12:46 PM [facility] RDW 14.3 11.5 - 15.5 % 04/12/2023 12:46 PM [facility] PLATELET COUNT 462(H) 140 - 440 thou/cu mm 04/12/2023 12:46 PM [facility] MPV 8.2 6.5 - 11.0 fL 04/12/2023 12:46 PM [facility] NRBC 0.0 % 04/12/2023 12:46 PM WEDDING DESIGNER [facility] ABS NRBC 0.0 thou /cu mm 04/12/2023 12:46 PM WEDDING DESIGNER [facility] Blood BLOOD SPECIMEN / Unknown Venipuncture / Unknown 04/12/2023 12:37 PM WEDDING DESIGNER 04/12/2023 12:41 PM WEDDING DESIGNER Erlinda Degroot NP HEMATOLOGY [facility] [place]ENDOUT [place] ZIP [id number] [place] [address] * Urine Lab Performed - [facility] Only (04/12/2023 12:10 PM WEDDING DESIGNER) ,URIN E Negative Negative 04/12/2023 12:38 PM WEDDING DESIGNER [facility] Urine URINE SPECIMEN / Unknown Non-Blood / Unknown 04/12/2023 12:10 PM WEDDING DESIGNER 04/12/2023 12:25 PM WEDDING DESIGNER Vamshi Wright MD URINE [facility] [place] ZIP [id number] [place] [address] * SCAN-CARDIAC STRIP (04/12/2023 12:00 AM WEDDING DESIGNER) Narrative 04/12/2023 12:00 AM WEDDING DESIGNER Ordered by an unspecified provider. Other Clinical [...] Preferences, Provider to review later Care Teams Offset Lithographic Press Setter Relationship Specialty Start Date End Date Kika Johnston PA [address] [place] [address] PCP - General Physician Slot Supervisor 02/11/21
--- OUTSIDE RECORDS SUMMARY | 2023-06-14 16:52 | XMS_ITS | Encounter Summary ---
Author Name Unknown Organization [facility] Address [address] [place] [address] Phone Care Team Providers Care Personal Financial Advisor Name Role Phone Unavailable Primary Care [...]
--- OUTSIDE RECORDS SUMMARY | 2023-06-14 16:52 | XMS_ITS | Encounter Summary ---
Author Name Unknown Organization [facility] Address [address] [place] [address] Phone Care Team Providers Care Estimator Jewelry Name Role Phone Unavailable Primary Care Provider Unavailabl e Reason for Visit * Reason Comments Follow-up Encounter Details Date Type Department Care Team Description 02/16/2023 3:15 PM CDT Office Visit [facility] D[facility]atology Clinic [address] [place] [address] [phone] Shirley Tatum MD [address] [place] [address] [phone], Derm Resident [address] [place] [address] Urticaria (Primary Dx) Discharge Disposition: Discharged to [...] James MD - 02/16/2023 3:15 PM CDT [facility] Dermatology Clinic: Hospital Follow up Jennifer Tellez 42 y.o. female [id number] Dermatology Problem List: # Acute urticaria - [...] any procedures performed. Shirley Tatum MD/MPH Staff Environmental Sampler documented in this encounter Plan of Treatment Not on file documented as of this encounter Visit Diagnoses Diagnosis Urticaria- Primary Urticaria, unspecified documented in this encounter
--- OUTSIDE RECORDS SUMMARY | 2023-06-14 16:52 | XMS_ITS | Clinical Summary ---
Author Name Unknown Organization [facility] Address [address] [place] [address] Phone Care Team Providers Care Cobol Developer Name Role Phone Unavailable Primary Care Provider Unavailabl e Source Comments Att[employer]io is fully rolled out on [employer]. Last update 10/24/08.[facility] Allergies Active Allergy Reactions Criticality Noted Date [...] as needed. 0 Active CHOLEcalciferol (VITAMIN D3) 96115 UNITS oral capsule Take 1 capsule (50,000 [...] Jennifer Tellez Personal/Family Self 1980 [address] [place] [address] Advance Directives For more information, please contact: [phone] Latest Code Status on File Code Status [...]
--- OUTSIDE RECORDS SUMMARY | 2023-06-14 16:52 | XMS_ITS | Encounter Summary ---
Author Name Unknown Organization [facility] Address [address] [place] [address] Phone Care Team Providers Care Truck Loader Overhead Crane Name Role Phone Unavailable Primary Care Provider [...]
--- OUTSIDE RECORDS SUMMARY | 2023-06-14 16:53 | XMS_ITS | Encounter Summary ---
Author Name Unknown Organization [facility] Address [address] [place] [address] Phone Care Team Providers Care Solar Systems Designer Name Role Phone Unavailable Primary Care Provider Unavailabl e Reason for Referral * Consult/Test/Treat (Routine) - New Request Specialty Diagnoses / Procedures Referred By Devon taylor Referred To Contact Allergy / ALLERGY Diagnoses Anaphylaxis, initial encounter Trevor Etienne MD [address] [place] [address] Referral ID Status Reason Start Date Expiration Date V isits Requested Visits Authorized [id number] New Request 01/05/2023 01/06/2024 1 1 Reason for Visit * Reason Comments Allergic Reaction * Auth/Cert (Routine) Specialty Diagnoses / Procedures Referred By Contfloresita taylor Referred To Contact MEDICINE Diagnoses Hypokalemia Rash Petechiae Polyarthralgia Near syncope Anaphylaxis, initial encounter Leeann Bain MD [address] [place] [address] Medicine [address] [place] [address] R5.400 [place] [address] Referral ID Status Reason Start Date Expiration Date Visits Re quested Visits Authorized [id number] 1 1 Encounter Details Date Type Department Care Team Description 01/04/2023 12:10 PM CDT - 01/05/2023 3:45 PM CDT Emergency [facility] Rapid Treatment Unit 1 701 [facility] R5.100 [place], [place] [phone] Jon Jeter MD 701 [facility] [address] [place] [address] Jon Francois MD 701 [facility] G[address] [place], [place] [address] Ana Salazar DO 701 [facility] [address] [place] [address] Trevor Etienne MD 701 [place] [address] Anaphylaxis, initial encounter Discharge Disposition: [...] Care Primary Care Physician: Kika ATKINS - [facility] BRIEF SUMMARY OF HOSPITALIZATION: This is a [...] breathing on prompting ER visit. At the [place] ER she was given epinephrine, steroids, Benadryl, famotidine and was transferred to [facility]. She was improving by the time she [...] problems Please schedule an appointment outside of [facility]: Order Comments: Please contact your (non-[facility]) your Primary Care Provider to schedule [...] Your Medications These medications were sent to [facility] Discharge Pharmacy - [place] [address] Hours: 12/12 cepacol 15-3.6 mg mouth/throat lozenge [...] evidence of decompensation. Will need to clarify BOTTOM FILLER medications in am, does take wellbutrin and [...] in real time. Please contact me via [employer] staff message if you note any errors [...] of my shift. Their care was signedout [id number] with the oncoming provider. 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 Will order IV Benadryl and Solu-Medrol [...] Defined Limits except for: Chest Pain: No Television Mechanic - no Respiratory Within defined limits Comments: [...] informed of Patient Valuables and Belongings Policy (#[id number]): Policy reviewed - patient/family/designee has indicated that [...] Francois MD - 01/04/2023 4:33 PM CDT Rivet Spinner of the Day (MOD) Triage/Communication Note Sign out received from TC-A Requested unit: RTU Patient status: obs Cardiac telemetry needed? 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 Given epi, solumedrol, famotidine. Still with facial swelling so admitting for observation. Jon Francois MD, 01/04/2023 4:33 PM Staff Physician, [facility] Medicine Note is for communication only, not [...] Routine 01/05/2023 5:42 AM CDT PF NEED QC TECH REVIEW Routine 01/04/2023 2:26 PM CDT documented in this encounter Results * (ABNORMAL) CBC WITH PLATELET (01/05/2023 5:42 AM CDT) WBC 14.99(H) 4.00 - 10.00 k/cmm [facility] RBC 4.85 3.90 - 5.20 m/cmm [facility] Hgb 13.4 11.5 - 15.7 g/dL [facility] Hematocrit 40.9 34.0 - 45.0 % [facility] MCV 84.3 80.0 - 100.0 fL [facility] MCH 27.6 25.0 - 32.0 pg [facility] MCHC 32.8 31.0 - 36.0 g/dL [facility] RDW 13.5 11.5 - 14.5 % [facility] Plt 365 150 - 400 k/cmm [facility] MPV 8.9 6.5 - 12.5 fL [facility] Blood 01/05/2023 5:42 AM CDT 01/05/2023 6:25 AM CDT Jon Francois MD LABORATORY Performing Organization Address [facility] Co de Phone Number [facility] [address] [address] * (ABNORMAL) PANEL BASIC METABOLIC (BMP) (01/05/2023 5:42 AM CDT) CO2 27 22 - 30 mEq/L [facility] Glucose 85 70 - 100 mg/dL [facility] BUN 12 6 - 20 mg/dL [facility] Creatinine 1.05(H) 0.50 - 1.00 mg/dL [facility] Calcium 9.3 8.6 - 10.0 mg/dL [facility] eGFR (2020 CKD-EPI) 68 >=60 ml/min/1.7 3m2 [facility] Comment: The estimated glomerular filtration rate (eGFR) was calculated using the CKD-EPI 2020 creatinine equation, which does not include race as a factor. This equation is validated in individuals 18 years of age and older, and eGFR is normalized to a body surface area of 1.73m^2. Sodium 139 135 - 148 mEq/L [facility] Potassium 4.0 3.5 - 5.3 mEq/L [facility] Chloride 102 92 - 108 mEq/L [facility] AnGap 10 8 - 16 mEq/L [facility] Blood 01/05/2023 5:42 AM CDT 01/05/2023 6:24 AM CDT Jon Francois MD LABORATORY Performing Organization Address [facility] Co de Phone Number [facility] [address] [address] * PF NEED QC TECH REVIEW (01/04/2023 2:26 PM CDT) Narrative Jon [...] 01/04/2023 8:51 PM CDT 300 mg heparin 74856 UNITS/mL injection 7,500 UNITS 7,500 UNITS, Subcutaneous, [...] (Given - Provider: Karl Das RN) heparin 84161 UNITS/mL injection 7,500 UNITS 7,500 UNITS, Subcutaneous, [...]
--- OUTSIDE RECORDS SUMMARY | 2023-06-14 16:53 | XMS_ITS | Encounter Summary ---
Author Name Unknown Organization [facility] Address [address] [place] [address] Care Team Providers Care Sebd Teacher Name Role Phone [facility] Unavailable Kika Johnston Primary Care Provider Encounter [...] on filedocumented in this encounter Care Teams Sebd Teacher Relationship Specialty Start Date End Date [facility] [address] [place] [address] PCP - Primary Care Clinic 01/06/23 Kika Johnston PA [address] [place] [address] PCP - General 01/06/23 documented as of this encounter
--- OUTSIDE RECORDS SUMMARY | 2023-06-14 16:53 | XMS_ITS | Encounter Summary ---
Author Name Unknown Organization [facility] Address [address] [place] [address] Phone Care Team Providers Care Marketing Business Analyst Name Role Phone Unavailable Primary Care Provider [...]
--- OUTSIDE RECORDS SUMMARY | 2023-06-14 16:53 | XMS_ITS | Referral Summary ---
Author Name Unknown Organization [facility] Address [address] [place] [address] Care Team Providers Care Motor Winder Name Role Phone Clinic, [facility] Kika Johnston Primary Care Provider Allergies [...] of Treatment Not on file Care Teams Motor Winder Relationship Specialty Start Date End Date Clinic, [facility] [address] [place] [address] PCP - Primary Care Clinic 01/06/23 Kika Johnston PA [address] [place] [address] PCP - General 01/06/23
--- OUTSIDE RECORDS SUMMARY | 2023-06-14 16:53 | XMS_ITS | Encounter Summary ---
Author Name Unknown Organization [facility] h Address [address] [place] [address] Care Team Providers Care Order Selector Name Role Phone [facility], [facility] Unavailable Kika Johnston Primary Care Provider Reason for Visit * Reason Comments Hives Encounter Details Date Type Department Care Team (Late st Contact Info) Description 01/06/2023 2:52 PM CDT - 01/06/2023 3:18 PM CDT Emergency [facility] Emergency Department [address] [place] [address] Chuck Hawkins MD [address] [facility] [address] [place] [address] Discharge Disposition: Returning Home/Self Care [...] through Care Everywhere. * Urticaria (AfterCare(R) Instructions(ER/ED)) (Maltese) documented in this encounter Medications at Time [...] progressively worsened until she was admitted at [facility] with [place] on 01/04. She felt better [...] of External Notes: I reviewed the patient's [place] discharge summary from yesterday. She was admitted [...] use PAST SURGICAL HISTORY: Hammer toe repair [place] teeth extraction Varicose vein surgery D&C PHYSICAL [...] to follow-up closely with primary doctor and well drill operator. She feels comfortable with this plan. DIAGNOSIS: [...] is accurate. Chuck Hawkins MD 01/06/23 01/06/2023 [facility] EMERGENCY DEPARTMENT * Jim Lowe RN - 01/06/2023 12:27 PM CDT Pt presents today for evaluation of hives. Hives started last Monday and have progressively gotten worse. Treated at [facility] for an[place]axis 01/04. Initially was seen at [place] [facility] twice earlier this week. Pt reports that she felt better when d/c from [facility] yesterday. Today when she got up hives [...] mmol/L ATELLICA ANALYZER 01/06/2023 1:13 PM CDT [facility] Potassium 3.5 3.4 - 5.1 mmol/L ATELLICA ANALYZER 01/06/2023 1:13 PM CDT [facility] Chloride 102 98 - 108 mmol/L ATELLICA ANALYZER 01/06/2023 1:13 PM CDT [facility] Carbon Dioxide 26 20 - 31 mmol/L ATELLICA ANALYZER 01/06/2023 1:13 PM CDT [facility] BUN (Urea Nitro) 10 9 - 23 mg/dL ATELLICA ANALYZER 01/06/2023 1:13 PM CDT [facility] Creatinine 0.73 0.55 - 1.02 mg/dL ATELLICA ANALYZER 01/06/2023 1:13 PM CDT [facility] Est GFR (CKD-EPI) >60.00 >60.00 mL/min/1. 73m2 ATELLICA ANALYZER 01/06/2023 1:13 PM CDT [facility] Comment:Calculation based on the Chronic Kidney Disease Epidemiology Collaboration (CKD-EPI) equation refit without adjustment for race. Glucose 122(H) 74 - 106 mg/dL ATELLICA ANALYZER 01/06/2023 1:13 PM CDT [facility] Calcium, Serum 9.2 8.7 - 10.4 mg/dL ATELLICA ANALYZER 01/06/2023 1:13 PM CDT [facility] Anion Gap 10.0 0.0 - 15.0 mmol/L ATELLICA ANALYZER 01/06/2023 1:13 PM CDT [facility] Blood 01/06/2023 12:4 3 PM CDT 01/06/2023 12:46 PM CDT Candido Miranda MD CHEMISTRY ORDERAB LE [facility] [address] [place] [address] * (ABNORMAL) CBC w/diff (01/06/2023 12:43 PM CDT) WBC 19.5(H) 4.3 - 10.8 K/uL 01/06/2023 12:57 PM CDT [facility] RBC 4.87 4.20 - 5.40 M/uL 01/06/2023 12:57 PM CDT [facility] Hemoglobin 13.4 12.0 - 16.0 gm/dL 01/06/2023 12:57 PM CDT [facility] Hematocrit 39.9 36.0 - 48.0 % 01/06/2023 12:57 PM CDT [facility] MCV 82 80 - 100 fL 01/06/2023 12:57 PM CDT [facility] MCH 28 27 - 33 pg 01/06/2023 12:57 PM CDT [facility] MCHC 34 33 - 36 gm/dL 01/06/2023 12:57 PM CDT [facility] RDW 13.2 11.5 - 14.5 % 01/06/2023 12:57 PM CDT [facility] Platelet Count 384 150 - 400 K/UL 01/06/2023 12:57 PM CDT [facility] MPV 8.7 6.5 - 12 fL 01/06/2023 12:57 PM CDT [facility] PMN % 90.3 % 01/06/2023 12:57 PM CDT [facility] IG % 0.8 <=1.0 % 01/06/2023 12:57 PM CDT [facility] Lymphocyte % 7.1 % 01/06/2023 12:57 PM CDT [facility] Monocyte % 1.5 % 01/06/2023 12:57 PM CDT [facility] Eosinophil % 0.1 % 01/06/2023 12:57 PM CDT [facility] Basophil % 0.2 % 01/06/2023 12:57 PM CDT [facility] PMN Absolute 17.63(H) 1.80 - 7.80 K/uL 01/06/2023 12:57 PM CDT [facility] IG ABSOLUTE 0.15(H) 0.00 - 0.00 K/uL 01/06/2023 12:57 PM CDT [facility] Lymphocyte Absolute 1.38 1.00 - 4.00 K/uL 01/06/2023 12:57 PM CDT [facility] Monocyte Absolute 0.30 0.00 - 1.00 K/uL 01/06/2023 12:57 PM [facility] Eosinophil Absolute 0.01 0.00 - 0.45 K/uL 01/06/2023 12:57 PM T [facility] Basophil Absolute 0.04 0.00 - 0.20 K/uL 01/06/2023 12:57 PM [facility] Nucl RBC % 0.0 0.0 - 0.0 /100 WBC 01/06/2023 12:57 PM [facility] Nucl RBC Absolute 0.00 0.00 - 0.00 K/uL 01/06/2023 12:57 PM [facility] Blood 01/06/2023 12:4 3 PM CDT 01/06/2023 12:46 PM CDT Candido Miranda MD HEMATOLOGY ORDERA BLE [facility] [address] [place] [address] documented in this encounter Visit Diagnoses Diagnosis Urticaria- Primary Urticaria, unspecified documented in this encounter Care Teams Order Selector Relationship Specialty Start Date End Date [facility] [address] [place] [phone] PCP - Primary Care Clinic 01/06/23 Kika Johnston PA [address] [facility] [address] PCP - General 01/06/23 documented as of this encounter
--- OUTSIDE RECORDS SUMMARY | 2023-06-14 16:53 | XMS_ITS | Clinical Summary ---
Author Name Unknown Organization [facility] Address [address] [place] [address] Care Team Providers Care Education Coordinator Name Role Phone [facility], [facility] Unavailable Kika Johnston Primary Care Provider Allergies [...] 08/05/2005, 08/05/2005, Additional history exists Care Teams Education Coordinator Relationship Specialty Start Date End Date Clinic, [facility] [address] [place] [address] PCP - Primary Care Clinic 01/06/23 Kika Johnston PA [address] [place] [address] PCP - General 01/06/23
--- OUTSIDE RECORDS SUMMARY | 2023-06-14 16:53 | XMS_ITS | Encounter Summary ---
Author Name Unknown Organization [facility] Address [address] [place] [address] Phone Care Team Providers Care Supervisor Electronics Assembly Name Role Phone Unavailable Primary Care Provider [...]
[2023-06-14] MEDS: KETOROLAC 60 MG/2 ML inj IM (17:30)
[2023-06-14 17:46] LABS: Ur HCG Qualitative* Negative (Negative)
[2023-06-14 17:47] LABS: Appearance Urine Clear (Clear); Bilirubin Urine Negative (Negative); Blood Urine Negative (Negative); Color Urine Yellow (Yellow); Glucose Urine Negative (Negative); Ketones Urine Negative (Negative); Leukocyte Esterase Urine Negative (Negative); Nitrite Urine Negative (Negative); Protein Urine Negative (Negative); Specific Gravity Urine < 1.005 (1.000-1.030); Urobilinogen Urine 0.2 (0.2-1.0); pH Urine 5.5 (5.0-8.5)
[2023-06-14 17:50] LABS: RBC Urine 0-2 (0-2); Squamous Epithelial Cell Urine Few (None-Few); WBC Urine 0-2 (0-5)
[2023-06-14 18:20] LABS: Basophils Percent Auto 0.5 % (0.0-3.0); Eosinophils Percent Auto 1.9 % (0.0-7.0); Hematocrit 36.6 % (33.0-51.0); Hemoglobin* 11.6 gm/dL (12.0-16.0); Immature Granulocytes Pct Auto 0.2 %; Lactate* 0.9 mmol/L (0.5-1.9); Lymphocytes Percent Auto 24.4 % (20-44); Mean Corpuscular HGB Conc 32 gm/dL (32-36); Mean Corpuscular Hemoglobin 27 pg (26-34); Mean Corpuscular Volume 85 fL (80-100); Monocytes Percent Auto 5.6 % (0.0-11.0); Neutrophils Percent Auto 67.4 % (42.0-72.0); Platelet Count* 494 K/uL (140-440); RDW Coefficient of Variation % 13.7 % (11.5-15.5); Red Blood Count 4.32 m/uL (4.00-5.20); White Blood Count* 12.89 K/uL (4.50-11.00)
[2023-06-14 18:23] LABS: Slide Review Reflex No
[2023-06-14 18:44] LABS: Albumin* 4.2 g/dL (3.3-5.0); Chloride* 103 mmol/L (96-114); Potassium* 3.7 mmol/L (3.6-5.1); Sodium* 139 mmol/L (135-149)
[2023-06-14 18:46] LABS: Anion Gap 7 mEq/L (7-15); Carbon Dioxide* 29 mmol/L (20-32); Creatinine* 0.7 mg/dL (0.5-1.5); Est. Creatinine Clearance* 115.82; Estimated Glomerular Filt Rate 110 ml/min
[2023-06-14 18:47] LABS: Alanine Aminotransferase* 37 U/L (4-35); Alkaline Phosphatase* 104 U/L (40-150); Aspartate Amino Transferase* 23 U/L (12-35); Bilirubin Direct* 0.1 mg/dL (0.0-0.5); Bilirubin Total* 0.2 mg/dL (0.1-1.5); Blood Urea Nitrogen* 12 mg/dL (5-24); Calcium* 9.2 mg/dL (8.4-10.6); Glucose* 92 mg/dL (60-115); Lipase* 41 U/L (23-300); Total Protein* 7.1 g/dL (6.0-8.3)
== END 2023-06-14 19:30 | disposition home or self-care (01) ==
PROVIDERS: Emergency Provider Family Medicine; PCP Physician Assistant Medical
DX: N83.202 Unspecified ovarian cyst, left side (principal); R10.9 Unspecified abdominal pain; K59.00 Constipation, unspecified
CPT/HCPCS: 36415; 74019; 76830; 80048; 80076; 81001; 81025; 83605; 83690; 85025; 87086; 93976; 96372; 99284; J1885

== ENCOUNTER 2023-06-23 10:41 | Outpatient (CLI) | payer MEDICARE, OTHER, SELFPAY ==
--- OUTSIDE RECORDS SUMMARY | 2023-06-23 11:00 | XMS_ITS | Encounter Summary ---
Author Name Unknown Organization [facility] Address [address] [place] [address] Phone Care Team Providers Care Inbound Sales Consultant Name Role Phone Unavailable Primary Care Provider Unavailabl e Reason for Visit * Reason Comments Referral RashAnaphylaxis * Consult/Test/Treat (Routine) - Closed Specialty Diagnoses / Procedures Referred By Contac t Referred To Contact Dermatology / DERMATOLOGY Diagnoses Rash Anaphylaxis, initial encounter Sudhakar Koenig MD [address] [place] [address] Referral ID Status Reason Start Date Expiration Date Visits Re quested Visits Authorized [id number] Closed 01/09/2023 01/10/2024 1 1 Encounter Details Date Type Department Care Team Description 01/16/2023 2:45 PM CDT Office [facility] Dermatology Clinic [address] [address] Rosaura Bergeron MD [address] [place] [id number] 1, Derm Resident [address] [place] [address] Urticaria (Primary Dx) Discharge Disposition: Discharged to [...] presents with hives on the skin, a director of officiating can often make the diagnosis by looking at the skin. Finding the cause of hives, however, can sometimes be hard. This is especially true for hives that have been around for more than 6 weeks. To find out what is causing your hives; your director of officiating will review your health history, ask questions, and do a physical exam. A skin biopsy, blood work and or allergy testing may be needed. Treatment For mild or moderate case of hives, the most common treatment is an antihistamine. Antihistamines relieve symptoms like itching. Not all hives require treatment. If you have chronic hives, your director of officiating may prescribe an antihistamine. You should take this medicine every day to prevent hives from forming, unless directed otherwise by your director of officiating. Some antihistamines make you drowsy, and some do not. No one antihistamine works for everyone. Your director of officiating may combine an antihistamine with other medicines to control the hives. Your director of officiating will work with you to formulate that best plan possible for treatment and prevention. If you have questions or concerns regarding a hives outbreak, please feel free to contact our clinic at [phone]. References: [email or web address] documented in this encounter Progress Notes * Sujit Mccurdy MD - 01/16/2023 2:45 PM CDT Images from the original note were not included. [facility] Dermatology Clinic: Hospital Follow up Jennifer Tellez 42 y.o. female [id number] Dermatology Problem List: # Acute urticaria - [...]
--- OUTSIDE RECORDS SUMMARY | 2023-06-23 11:00 | XMS_ITS | Encounter Summary ---
Author Name Unknown Organization [facility] h Address [address] [place] [address] Care Team Providers Care Bun Panner Name Role Phone Clinic, [facility] Unavailable Unavailable Kika Johnston Primary Care Provider Reason for Visit * Reason Comments Hives Encounter Details Date Type Department Care Team (Late st Contact Info) Description 01/06/2023 2:52 PM CDT - 01/06/2023 3:18 PM CDT Emergency [facility] Emergency Department [address] [place] [address] Chuck Hawkins MD [address] [place] [address] Discharge Disposition: Returning Home/Self Care [...] through Care Everywhere. * Urticaria (AfterCare(R) Instructions(ER/ED)) (Kyrgyz) documented in this encounter Medications at Time [...] progressively worsened until she was admitted at [facility] with anaphylaxis on 01/04. She felt better [...] of External Notes: I reviewed the patient's [place] discharge summary from yesterday. She was admitted [...] use PAST SURGICAL HISTORY: Hammer toe repair [place] teeth extraction Varicose vein surgery D&C PHYSICAL [...] to follow-up closely with primary doctor and optical goods drill operator. She feels comfortable with this [...] is accurate. Chuck Hawkins MD 01/06/23 01/06/2023 [facility] EMERGENCY DEPARTMENT * Jim Lowe RN - 01/06/2023 12:27 PM CDT Pt presents today for evaluation of hives. Hives started last Monday and have progressively gotten worse. Treated at [facility] for anaphylaxis 01/04. Initially was seen at [place] [facility] twice earlier this week. Pt reports that she felt better when d/c from [facility] yesterday. Today when she got up hives [...] mmol/L ATELLICA ANALYZER 01/06/2023 1:13 PM CDT [facility] Potassium 3.5 3.4 - 5.1 mmol/L ATELLICA ANALYZER 01/06/2023 1:13 PM CDT [facility] Chloride 102 98 - 108 mmol/L ATELLICA ANALYZER 01/06/2023 1:13 PM CDT [facility] Carbon Dioxide 26 20 - 31 mmol/L ATELLICA ANALYZER 01/06/2023 1:13 PM CDT [facility] BUN (Urea Nitro) 10 9 - 23 mg/dL ATELLICA ANALYZER 01/06/2023 1:13 PM CDT [facility] Creatinine 0.73 0.55 - 1.02 mg/dL ATELLICA ANALYZER 01/06/2023 1:13 PM CDT [facility] Est GFR (CKD-EPI) >60.00 >60.00 mL/min/1. 73m2 ATELLICA ANALYZER 01/06/2023 1:13 PM CDT [facility] Comment:Calculation based on the Chronic Kidney Disease Epidemiology Collaboration (CKD-EPI) equation refit without adjustment for race. Glucose 122(H) 74 - 106 mg/dL ATELLICA ANALYZER 01/06/2023 1:13 PM CDT [facility] Calcium, Serum 9.2 8.7 - 10.4 mg/dL ATELLICA ANALYZER 01/06/2023 1:13 PM CDT [facility] Anion Gap 10.0 0.0 - 15.0 mmol/L ATELLICA ANALYZER 01/06/2023 1:13 PM CDT [facility] Blood 01/06/2023 12:4 3 PM CDT 01/06/2023 12:46 PM CDT Candido Miranda MD CHEMISTRY ORDERAB LE [facility] [address] [id number] * (ABNORMAL) CBC w/diff (01/06/2023 12:43 PM CDT) WBC 19.5(H) 4.3 - 10.8 K/uL 01/06/2023 12:57 PM CDT [facility] RBC 4.87 4.20 - 5.40 M/uL 01/06/2023 12:57 PM CDT [facility] Hemoglobin 13.4 12.0 - 16.0 gm/dL 01/06/2023 12:57 PM CDT [facility] Hematocrit 39.9 36.0 - 48.0 % 01/06/2023 12:57 PM CDT [facility] MCV 82 80 - 100 fL 01/06/2023 12:57 PM CDT [facility] MCH 28 27 - 33 pg 01/06/2023 12:57 PM CDT [facility] MCHC 34 33 - 36 gm/dL 01/06/2023 12:57 PM CDT [facility] RDW 13.2 11.5 - 14.5 % 01/06/2023 12:57 PM CDT [facility] Platelet Count 384 150 - 400 K/UL 01/06/2023 12:57 PM CDT [facility] MPV 8.7 6.5 - 12 fL 01/06/2023 12:57 PM CDT [facility] PMN % 90.3 % 01/06/2023 12:57 PM CDT [facility] IG % 0.8 <=1.0 % 01/06/2023 12:57 PM CDT [facility] Lymphocyte % 7.1 % 01/06/2023 12:57 PM CDT [facility] Monocyte % 1.5 % 01/06/2023 12:57 PM CDT [facility] Eosinophil % 0.1 % 01/06/2023 12:57 PM CDT [facility] Basophil % 0.2 % 01/06/2023 12:57 PM CDT [facility] PMN Absolute 17.63(H) 1.80 - 7.80 K/uL 01/06/2023 12:57 PM CDT [facility] IG ABSOLUTE 0.15(H) 0.00 - 0.00 K/uL 01/06/2023 12:57 PM T [facility] Lymphocyte Absolute 1.38 1.00 - 4.00 K/uL 01/06/2023 12:57 PM CDT [facility] Monocyte Absolute 0.30 0.00 - 1.00 K/uL 01/06/2023 12:57 PM CDT [facility] Eosinophil Absolute 0.01 0.00 - 0.45 K/uL 01/06/2023 12:57 PM CDT [facility] Basophil Absolute 0.04 0.00 - 0.20 K/uL 01/06/2023 12:57 PM [facility] Nucl RBC % 0.0 0.0 - 0.0 /100 WBC 01/06/2023 12:57 PM [facility] Nucl RBC Absolute 0.00 0.00 - 0.00 K/uL 01/06/2023 12:57 PM [facility] Blood 01/06/2023 12:4 3 PM CDT 01/06/2023 12:46 PM CDT Candido Miranda MD HEMATOLOGY ORDERA BLE [facility] [address] [facility] [place] [address] documented in this encounter Visit Diagnoses Diagnosis Urticaria- Primary Urticaria, unspecified documented in this encounter Care Teams Bun Panner Relationship Specialty Start Date End Date [facility] PCP - Primary Care Clinic 01/06/23 Kika Johnston PA [address] [place] [address] PCP - General 01/06/23 documented as of this encounter
--- OUTSIDE RECORDS SUMMARY | 2023-06-23 11:00 | XMS_ITS | Encounter Summary ---
Author Name Unknown Organization [facility] Address [address] [place] [address] Phone Care Team Providers Care Wastewater Operator Name Role Phone Unavailable Primary Care Provider [...]
--- OUTSIDE RECORDS SUMMARY | 2023-06-23 11:00 | XMS_ITS | Encounter Summary ---
Author Name Unknown Organization [facility] Address [address] [place] [address] Phone Care Team Providers Care Central Supply Manager Name Role Phone Unavailable Primary Care Provider [...]
--- OUTSIDE RECORDS SUMMARY | 2023-06-23 11:00 | XMS_ITS | Clinical Summary ---
Author Name Unknown Organization [facility] Address [address] [place] [address] Care Team Providers Care System Safety Engineer Name Role Phone Clinic, [facility] Unavailable Unavailable Kika Johnston Primary Care Provider Allergies [...] 08/05/2005, 08/05/2005, Additional history exists Care Teams System Safety Engineer Relationship Specialty Start Date End Date Clinic, [facility] PCP - Primary Care Clinic 01/06/23 Kika Johnston PA [address] [place] [address] PCP - General 01/06/23
--- OUTSIDE RECORDS SUMMARY | 2023-06-23 11:00 | XMS_ITS | Encounter Summary ---
Author Name Unknown Organization [facility] Address [address] [place] [address] Care Team Providers Care Lease Picker Name Role Phone [facility] Unavailable Unavailable Kika Johnston Primary Care Provider Encounter [...] on filedocumented in this encounter Care Teams Lease Picker Relationship Specialty Start Date End Date [facility] PCP - Primary Care Clinic 01/06/23 Kika Johnston PA [address] [place] [address] PCP - General 01/06/23 documented as of this encounter
--- OUTSIDE RECORDS SUMMARY | 2023-06-23 11:00 | XMS_ITS | Clinical Summary ---
Author Name Unknown Organization [employer] [facility] Address [address] [place] [address] Phone Care Team Providers Care Information Receptionist Name Role Phone Unavailable Primary Care Provider Unavailabl e Source Comments Wiper is fully rolled out on [employer]. Last update 10/24/08.[employer] [facility] Allergies Active Allergy Reactions Criticality Noted Date [...] as needed. 0 Active CHOLEcalciferol (VITAMIN D3) 06748 UNITS oral capsule Take 1 capsule (50,000 [...] Jennifer Tellez Personal/Family Self 1980 [address] [place] [address] Advance Directives For more information, please contact: [phone] Latest Code Status on File Code Status [...]
--- OUTSIDE RECORDS SUMMARY | 2023-06-23 11:00 | XMS_ITS | Referral Summary ---
Author Name Unknown Organization [facility] Address [address] [place] [address] Care Team Providers Care Flash Developer Name Role Phone Clinic, [facility] Unavailable Unavailable Kika Johnston Primary Care [...] of Treatment Not on file Care Teams Flash Developer Relationship Specialty Start Date End Date Clinic, [facility] PCP - Primary Care Clinic 01/06/23 Kika Johnston PA [address] [place] [address] PCP - General 01/06/23
--- OUTSIDE RECORDS SUMMARY | 2023-06-23 11:00 | XMS_ITS | Encounter Summary ---
Author Name Unknown Organization [facility] Address [address] [place] [address] Phone Care Team Providers Care Stereotype Caster Name Role Phone Unavailable Primary Care Provider Unavailabl e Reason for Visit * Reason Comments Follow-up Encounter Details Date Type Department Care Team Description 02/16/2023 3:15 PM CDT Office Visit [facility] Dermatology Clinic [address] [place] [phone] Shirley Tatum MD [address] [place] [address] [phone], Derm Resident [address] [place] [address] Urticaria (Primary Dx) Discharge Disposition: Discharged to [...] James MD - 02/16/2023 3:15 PM CDT [facility] Dermatology Clinic: Hospital Follow up Jennifer Tellez 42 y.o. female [id number] Dermatology Problem List: # Acute urticaria - [...] any procedures performed. Shirley Tatum MD/MP[facility] Staff Grain Ii Farmworker documented in this encounter Plan of Treatment Not on file documented as of this encounter Visit Diagnoses Diagnosis Urticaria- Primary Urticaria, unspecified documented in this encounter
--- OUTSIDE RECORDS SUMMARY | 2023-06-23 11:01 | XMS_ITS | Encounter Summary ---
Author Name Unknown Organization [facility] Address [address] [place] [address] Phone Care Team Providers Care Feed Elevator Worker Name Role Phone Unavailable Primary Care [...]
--- OUTSIDE RECORDS SUMMARY | 2023-06-23 11:01 | XMS_ITS | Encounter Summary ---
Author Name Unknown Organization [facility] Address [address] [place] [address] Phone Care Team Providers Care Skidder Name Role Phone Unavailable Primary Care Provider [...]
--- OUTSIDE RECORDS SUMMARY | 2023-06-23 11:01 | XMS_ITS | Clinical Summary ---
Author Name Unknown Organization [facility] Address [place], [place] [address] Care Team Providers Care Supervisor [employer] Name Role Phone Kika Johnston Primary Care Provider Allergies Active Allergy Reactions Criticality Noted Date Comments Cephalexin Rash Medium 08/23/2006 Penicillins Rash Medium 08/23/2006 Shellfish Containing Products Anaphylaxis 12/18 Medications Medication Sig Dispensed Refills Start Date End Date Status EPINEPHrine (EPIPEN) 0.3 mg/0.3 mL auto-injector Inject 0.3 mg intramuscular each time if needed for Allergic Reaction. 0 01/06/20 23 Active FeroSuL 325 mg (65 mg [...] Nausea/Vomiting. 30 Tablet 0 06/13/19 24 Active lidocaine 5 % topical patchIndications: Other chronic pain,Hip pain, right APPLY 1 PATCH ON DRY, CLEAN, HAIRLESS SKIN ONCE DAILY. 30 Patch 0 06/16/19 24 Active polyethylene glycoL (MIRALAX) 17 gram/scoop powderIndications :Chronic constipation Mix 1 scoop (17 g) in liquid then take by mouth once daily. 850 g 5 06/16/19 24 Active cholecalciferol (VITAMIN D3) 50,000 unit capsuleIndication s:Vitamin D deficiency TAKE 1 CAPSULE BY MOUTH ONCE EVERY WEEK 1 Capsule 0 06/19/19 24 Active citalopram (CELEXA) 20 mg tablet 0 06/15/19 24 Active baclofen (LIORESAL) 10 mg tabletIndications :Muscle spasm Take 1 Tablet (10 mg) by mouth three times daily. 90 Tablet 0 06/20/19 24 Active HYDROcodone-aceta minophen (5-325 mg/tablet)Indicat ions:Cervical stenosis of spine,Lumbar disc disease Take 1 Tablet by mouth 3 times daily if needed for Pain. Max acetaminophen dose: 4000 mg in 24 hrs. 21 Tablet 0 06/20/19 24 Active valACYclovir (VALTREX) 1 gram tabletIndications :Genital herpes simplex, unspecified site Take 1 Tablet (1 g) by mouth once daily. Take 1 gram daily, increase to 1 gram twice daily for outbreaks. 90 Tablet 1 06/20/19 24 Active busPIRone (BUSPAR) 10 mg tabletIndications :Anxiety Take 1 Tablet (10 mg) by mouth 3 times daily. 90 Tablet 1 10/28/19 22 024 Discontinued(* Patient states no longer taking) hydrOXYzine pamoate (VISTARIL) 25 mg capsuleIndication s:Anxiety Take 2 Capsules (50 mg) by mouth 3 times daily if needed for Anxiety. 90 Capsule 0 12/08/19 22 024 Discontinued(* Med complete/Regim en complete/Level of care change) omeprazole 20 mg tabletIndications :Gastroesophageal reflux disease, unspecified whether esophagitis present Take 1 Tablet (20 mg) by mouth once daily before a meal. 90 Tablet 3 09/20/19 23 024 Discontinued(* Patient states no longer taking) Senexon-S 8.6-50 mg tabletIndications :Constipation, unspecified constipation type TAKE 2 TABLETS BY MOUTH TWICE A DAY 360 Tablet 3 10/08/19 23 024 Discontinued(* Patient states no longer taking) valACYclovir (VALTREX) 500 mg tabletIndications :Genital herpes simplex, unspecified site TAKE 1 TABLET BY MOUTH DAILY 90 Tablet 3 11/04/19 23 024 Discontinued(* Medication adjustment) cholecalciferol (VITAMIN D3) 50,000 unit capsuleIndication s:Vitamin D deficiency TAKE 1 CAPSULE BY MOUTH ONCE EVERY WEEK 12 Capsule 1 01/04/20 23 024 Discontinued albuterol HFA (PRO-AIR; VENTOLIN; PROVENTIL) 90 mcg/actuation inhalerIndication s:Moderate persistent asthma without complication Inhale 1-2 Puffs by mouth every 4 hours if needed for Wheezing. 1 Each 1 01/17/20 23 024 Discontinued(* Patient states no longer taking) Graduated Compression StockingsIndicati ons:Varicose veins of both lower extremities with pain 20-30 mmHg thigh high compression stockings. Wear as directed. 3 Packet 3 03/14/20 23 024 Discontinued(* Med complete/Regim en complete/Level of care change) famotidine (PEPCID) 20 mg tablet Take 20 mg by mouth at bedtime. 0 01/10/20 23 024 Discontinued(* Patient states no longer taking) acetaminophen (TYLENOL EXTRA STRGTH) 500 mg tabletIndications :Hip pain, right,Hip pain, left TAKE 2 CAPSULES (1000MG) BY MOUTH EVERY SIX HOURS NEEDED MAX 4000MG/ DAY 100 Tablet 3 04/12/20 23 024 Discontinued(* Patient states no longer taking) gabapentin (NEURONTIN) 300 mg capsuleIndication s:Upper back pain,Muscle spasm,Chronic bilateral low back pain, unspecified whether sciatica present TAKE 1 CAPSULE BY MOUTH FOUR TIMES A DAY 112 Capsule 5 04/14/20 23 024 Discontinued(* Patient states no longer taking) baclofen (LIORESAL) 10 mg tabletIndications :Muscle spasm Take 1 Tablet (10 mg) by mouth three times daily. Dose increase. 90 Tablet 1 05/01/20 23 024 Discontinued apixaban (ELIQUIS) 5 mg tablet Take 5 mg by mouth two times daily. for superficial thrombophlebitis 0 024 Discontinued(* Patient states no longer taking) buPROPion (WELLBUTRIN XL) 150 mg Extended-Release tabletIndications :Severe mixed bipolar 1 disorder without psychosis (HC) Take 1 Tablet (150 mg) by mouth once daily. 30 Tablet 0 05/17/20 23 024 Discontinued(* Patient states no longer taking) OLANzapine (ZYPREXA, FILM COATED TABLET,) 10 mg tabletIndications :Severe mixed bipolar 1 disorder without psychosis (HC) Take 1 Tablet (10 mg) by mouth at bedtime. 30 Tablet 0 05/16/20 024 Discontinued(* Patient states no longer taking) ondansetron (ZOFRAN ODT) 4 mg disintegrating tabletIndications [...] 24 024 Discontinued(R eorder (E-cancel not sent)) baclofen (LIORESAL) 10 mg tabletIndications :Muscle spasm TAKE ONE TABLET BY MOUTH THREE TIMES A DAY . 90 Tablet 0 05/31/19 24 024 Discontinued(* Patient states no longer taking) HYDROcodone-aceta minophen (5-325 mg/tablet)Indicat ions:Cervical stenosis of spine,Lumbar disc disease Take 1 Tablet by mouth 3 times daily if needed for Pain. Max acetaminophen dose: 4000 mg in 24 hrs. 21 Tablet 0 06/05/19 24 024 Discontinued(R eorder (E-cancel not sent)) lidocaine 5 % topical patchIndications: Other chronic pain,Hip pain, right APPLY 1 PATCH ON DRY, CLEAN, HAIRLESS SKIN ONCE DAILY. 14 Patch 0 06/13/19 24 024 Discontinued HYDROcodone-aceta minophen (5-325 mg/tablet)Indicat ions:Cervical stenosis of spine,Lumbar disc disease Take 1 Tablet by mouth 3 times daily if needed for Pain. Max acetaminophen dose: 4000 mg in 24 hrs. 21 Tablet 0 06/14/19 24 024 Discontinued(R eorder (E-cancel not sent)) valACYclovir (VALTREX) 1 gram tabletIndications :Genital herpes simplex, unspecified site Take 2 Tablets (2 g) by mouth two times daily. 30 Tablet 5 06/16/19 24 024 Discontinued(R eorder (E-cancel not sent)) valACYclovir (VALTREX) 1 gram tabletIndications :Genital herpes simplex, unspecified site Take 1 gram daily, increase to 1 gram twice daily for outbreaks. 60 Tablet 5 06/16/19 24 024 Discontinued(R eorder (E-cancel not sent)) [...] Encounters Date Type Department Care Team Description 06/20/2023 9:50 AM URANIUM PROCESSING SUPERVISOR Telemedicine [facility] [address] [facility] [place] [address] Kika Johnston PA Telehealth (Med check) 06/20/2023 Orders Only [facility] [address] [facility] [place] [address] Mee Lamar PA 1 scan: (1-Ord) [facility], CERVICAL SPINE, 05/25/2023 06/20/2023 Travel 06/19/2023 11:00 AM URANIUM PROCESSING SUPERVISOR Office Visit [facility] [address] [facility] [place] [address] Hector Baez MD Musculoskeletal Problem (Consult low back and neck pain, patient did have neck LUCAS on 06/16/23) 06/19/2023 Travel 06/19/2023 Refill [facility] [address] [place] [address] Kika Johnston PA Refill Request (Cholecalciferol) 06/16/[address] [facility] Scanner 1 scan: (1-Ord) [facility]IOLOG[facility], CERVICAL INTERLAMINAR EPIDUROGRAPHY AND THERAPEUTIC INJECTION, 06/16/2023 06/16/2023 Telephone [facility] [address] [facility] [place] [address] Kika Johnston PA Medication Management (valACYclovir (VALTREX) 1 gram tablet 30 Tablet) 06/16/2023 Travel 06/14/[address] [facility] Scanner 1 scan: (1-Ord) [facility], XR ABD 2V, 06/14/2023 06/14/2023 Nurse Triage [facility] [address] [place] [address] Kika Johnston PA Abdominal Pain 06/14/2023 Telephone [facility] [address] [place] [address] Kika Johnston PA General Illness/Other 06/14/2023 Nurse Triage [facility] [address] [place] [address] Kika Johnston PA Chest Pain 06/14/2023 Travel 06/13/2023 Refill [facility] [address] [facility] [place] [address] Kika Johnston PA Refill Request (Lidocaine) 06/12/2023 Telephone [facility] [address] [place] [phone] Clinic, [facility] Medication Management (Jennifer called and has question about stopping her Eliquis would like a nurse to call her back [facility] [phone]/Bruna Delatorre .................... 06/12/2023 1:54 PM/) 06/12/2023 Refill [facility] [address] [place] [address] Kika Johnston PA Refill Request (Lidocaine) 06/09/2023 11:15 AM URANIUM PROCESSING SUPERVISOR Ancillary Procedure [facility] [address] [place] [address] 06/09/2023 10:40 AM URANIUM PROCESSING SUPERVISOR Office Visit [facility] [address] [place] [address] Mee Lamar PA Foot Problem (Right foot swelling- started early april ) 06/09/2023 Telephone [facility] [address] [place] [address] Magaly Pittman MD Foot Problem (Right foot swelling ) 06/09/2023 Travel 06/08/2023 9:45 AM URANIUM PROCESSING SUPERVISOR Ancillary Procedure [facility] [address] [place] [address] 06/08/2023 Travel 06/05/2023 10:10 AM URANIUM PROCESSING SUPERVISOR Telemedicine [facility] [address] [place] [address] Kika Johnston PA Telehealth 06/04/2023 Travel 05/31/2023 Refill [facility] [address] [place] [address] Kika Johnston PA Refill Request (Baclofen) 05/29/2023 10:40 AM URANIUM PROCESSING SUPERVISOR Telemedicine [facility] [address] [place] [address] Kika Johnston PA Telehealth (Go over MRI results - ) 05/26/2023 Travel 05/25/[address] [facility] Scanner 1 scan: (1-Ord) [facility], LUMBAR SPINE, 05/25/2023 05/25/2023 Orders Only [facility] Scanner 1 scan: (1-Ord) [facility], MRI THORACIC SPINE WO CON, 05/25/2023 05/24/2023 Travel 05/23/2023 3:30 PM URANIUM PROCESSING SUPERVISOR Telemedicine [facility] [address] [place] [address] Error-please disregard (E-Visit inappropriate) 05/23/2023 2:10 PM URANIUM PROCESSING SUPERVISOR Telemedicine [facility] [address] [place] [address] Error-please disregard (E-Visit inappropriate) 05/23/2023 9:30 AM URANIUM PROCESSING SUPERVISOR Office Visit [facility] [address] [place] [address] Mee Lamar PA Neck Pain/problem (Feels crunching in neck/Having nausea and vomiting/Neck pain/Headache/migrain es//Started 2-3 weeks ago/Had a CT done - would like MRI if possible) 05/23/2023 Travel 05/20/2023 11:30 AM URANIUM PROCESSING SUPERVISOR Telemedicine [facility] [address] [place] [phone] Shannan Patricio PA Neck Pain/problem 05/20/2023 Travel 05/18/2023 Refill [facility] [address] [place] [address] Kika Johnston PA Refill Request (Ferosul) 05/18/2023 Patient Outreach [facility] [address] [facility] [place] [address] Aleah Mullen, RN Primary RN Care Management; Hospital F/U (LACE 78) 05/16/2023 Telephone [facility] [address] [place] [address] Kika Johnston PA Questions 05/13/2023 8:26 AM URANIUM PROCESSING SUPERVISOR - 05/17/2023 10:15 AM URANIUM PROCESSING SUPERVISOR Hospital Encounter [facility] [address] [place] [address] Jazlyn Garcia NP Adult, Anw Psychiatry - Vinicius Brito MD Severe mixed bipolar 1 disorder without psychosis (HC) (Primary Dx) Discharge Disposition: Home Self Care 05/12/2023 5:47 PM URANIUM PROCESSING SUPERVISOR - 05/13/2023 7:27 AM URANIUM PROCESSING SUPERVISOR Emergency [facility] [address] [place] [address] Cassie Crocker PA [place], Kris [place], Auditory hallucinations (Primary Dx); Manic behavior (HC); Back pain, unspecified back location, unspecified back pain laterality, unspecified chronicity Discharge Disposition: Psychiatric Hos or Unit 05/12/[address] [facility] Scanner 1 scan: (1-Ord) [place], ANGIO CHEST PE PROTOCOL, 05/12/2023 05/12/[address] [facility] Scanner 1 scan: (1-Ord) [facility], VENOUS LE RT, 05/12/2023 05/12/2023 Travel 05/12/2023 Telephone [facility] [address] [facility] [place] [address] Kika Johnston PA Spinal Cord Injury Rehab Care Coordination - [facility] (Spinal Stenosis ) 05/11/[address] [facility] Scanner 1 scan: (1-Ord) [place], CT LUMBAR SPINE WO CON, 05/11/2023 05/11/[address] [facility] Scanner 1 scan: (1-Ord) [place], CT CERVICAL SPINE WO CON, 05/11/2023 05/11/2023 Telephone [facility] [address] [place] [address] Hector Baez MD Questions (call back ) 05/11/2023 Telephone [facility] [address] [place] [address] Hector Baez MD Follow Up (QUESTIONS); Error-please disregard 05/11/2023 Telephone [facility] [address] [place] [address] Magaly Pittman MD Concerns 05/08/2023 Orders Only [facility] Scanner 1 scan: (1-Ord) [facility] VENOUS LE RT, 05/08/2023 05/08/2023 Telephone [facility] [address] [place] [address] Magaly Pittman MD 05/08/2023 Telephone [facility] [address] [place] [address] Hector Baez MD Appointment 05/01/2023 12:20 PM URANIUM PROCESSING SUPERVISOR Telemedicine [facility] [address] [place] [address] Kika Johnston PA Telehealth (Back pain - would like to go to pain clinic); Concerns (Would like to do pool therapy at [address], needs note. ); Medication Management (Discuss increase baclofen dose - ) 04/27/2023 3:25 PM URANIUM PROCESSING SUPERVISOR Telemedicine [facility] [address] [place] [phone] Vonda Ortiz NP Telehealth 04/26/2023 10:45 AM URANIUM PROCESSING SUPERVISOR Office Visit [facility] [address] [place] [address] Magaly Pittman MD Follow Up (follow up for right leg phlebectomy and ligation ) 04/26/2023 Travel 04/25/2023 2:40 PM URANIUM PROCESSING SUPERVISOR Telemedicine [facility] [address] [place] [address] Oscar Cheatham PA Back Pain 04/25/2023 Travel 04/25/2023 Telephone [facility] [address] [place] [address] Kika Johnston PA Questions (BACK PAIN) 04/24/2023 Travel 04/21/2023 Orders Only [facility] Scanner 1 scan: (1-Ord) [facility], CT HEAD/BRAIN WO CON, 04/21/2023 04/14/2023 9:50 AM URANIUM PROCESSING SUPERVISOR Telemedicine [facility] [address] [place] [address] Kika Johnston PA Telehealth (Follow up from surgery - doing good); Medication Management (Stopped taking flexeril - was not helping, is there another option?) 04/12/2023 3:43 PM URANIUM PROCESSING SUPERVISOR Anesthesia Event [address] [address] Sujit Naranjo MD 04/12/2023 1:29 PM URANIUM PROCESSING SUPERVISOR - 04/12/2023 3:49 PM URANIUM PROCESSING SUPERVISOR Surgery [address] [address] Magaly Pittman MD RIGHT SAPHENOFEMORAL LIGATION AND RIGHT VARICOSE VEINS X22 STAB PHLEBECTOMIES 04/12/2023 11:22 AM URANIUM PROCESSING SUPERVISOR - 04/12/2023 7:15 PM URANIUM PROCESSING SUPERVISOR Hospital Encounter [address] [address] Magaly Pittman MD Postoperative pain (Primary Dx) Discharge Disposition: Home Self Care 04/12/2023 Refill [facility] [address] [place] [address] Kika Johnston PA Refill Request (Gabapentin) 04/11/2023 Travel 04/11/2023 Refill [facility] [address] [place] [address] Kika Johnston PA Refill Request (Acetaminophen) 04/09/2023 Travel 04/06/2023 Refill [facility] [address] [facility] [address] Kika Johnston PA Refill Request (Banophen) 04/05/2023 10:30 AM URANIUM PROCESSING SUPERVISOR Preop Visit [facility] [address] [place] [address] [address] Kika Johnston PA Preoperative Exam (R leg) 04/05/2023 Travel 03/31/2023 Travel from Last 3 Months Immunizations Name Administration Dates Next Due COVID-19 vaccine (Moderna 100mcg/0.5mL) PF, MDV 12/07/2021,12/03/2020,11/05/2020 DTP 10/10/1985 DTaP 10/10/1985 Hepatitis A [...] Relation Name Status Comments Daughter Alive Father 1999 Mother Alive Son Alive Social History Tobacco [...] Sex Assigned at Female 05/21/2021 8:17 AM URANIUM PROCESSING SUPERVISOR Gender Identity Female 05/21/2021 8:17 AM URANIUM PROCESSING SUPERVISOR Sexual Orientation Straight 02/13/2021 3: 53 AM CDT Obstetrics History Para Term AB IAB SAB Ectopic Multiple Livin g Live Births 3 2 2 1 1 2 Date Outcome GA Total Labor Labor/2nd/3rd Weight Sex Delivery Anes PTL Yolande A1 A5 Name Cl in Term Term SAB Last Filed Vital Signs Vital Sign Reading Time Taken Comments Blood Pressure 121/76 06/19/2023 11:15 AM URANIUM PROCESSING SUPERVISOR Pulse 87 06/19/2023 11:15 AM URANIUM PROCESSING SUPERVISOR Temperature 36.8 ??C (98.2 ??F) 06/19/2023 1 1:15 AM URANIUM PROCESSING SUPERVISOR Respiratory Rate 16 05/17/2023 7:50 AM URANIUM PROCESSING SUPERVISOR Oxygen Saturation 97% 06/19/2023 11: 15 AM URANIUM PROCESSING SUPERVISOR Inhaled Oxygen Concentration - - Weight 128.2 kg (282 lb 11.2 oz) 2023 11:15 AM URANIUM PROCESSING SUPERVISOR shoes on Height 180.3 cm (5' 11) 05/13/2023 9:00 AM URANIUM PROCESSING SUPERVISOR Body Mass Index 39.43 05/13/2023 9:00 AM URANIUM PROCESSING SUPERVISOR Plan of Treatment Upcoming Encounters Date Type Department Care Team (Late st Contact Info) Description 07/28/2023 10:20 AM URANIUM PROCESSING SUPERVISOR Office Visit [facility] [address] [place] [address] Hector Baez MD [address] [place] [address] Health Maintenance Due Date Last Done Comments [...] Procedure Name Priority Date/Time Associated Diagnosis Comments SCAN-OPERATIVE/PROCED URE REPORT 06/16/2023 12:00 AM URANIUM PROCESSING SUPERVISOR SCAN-RADIOLOGY REPORT 06/14/2023 12:00 AM URANIUM PROCESSING SUPERVISOR US VENOUS LOWER EXTREMITY RIGHT Routine 06/09/2023 11:30 AM URANIUM PROCESSING SUPERVISOR Swelling of right foot US PELVIS COMPLETE TA AND TV Routine 06/08/2023 11:25 AM URANIUM PROCESSING SUPERVISOR Mass of left ovary SCAN-MRI INTERPRETATION 05/25/2023 12:00 AM URANIUM PROCESSING SUPERVISOR MR SPINE CERVICAL WO KYRIE 05/25/2023 12:00 AM URANIUM PROCESSING SUPERVISOR Neck pain, chronic SCAN-MRI INTERPRETATION 05/25/2023 12:00 AM URANIUM PROCESSING SUPERVISOR DRUG SCREEN RAPID URINE INHOUSE Today 05/14/2023 10:36 AM URANIUM PROCESSING SUPERVISOR COMPLIANCE DRUG ANALYSIS Today 05/14/2023 10:36 AM URANIUM PROCESSING SUPERVISOR UA W/ SEDIMENT EXAM REFLEXED PER CRITERIA Today 05/14/2023 10:36 AM URANIUM PROCESSING SUPERVISOR CBC WITH AUTO DIFFERENTIAL Early AM 05/14/2023 8:07 AM URANIUM PROCESSING SUPERVISOR LIPID PANEL Early AM 05/14/2023 8:07 AM URANIUM PROCESSING SUPERVISOR HEMOGLOBIN A1C SCREENING Early AM 05/14/2023 8:07 AM URANIUM PROCESSING SUPERVISOR BASIC METABOLIC PANEL Early AM 05/14/2023 8:07 AM URANIUM PROCESSING SUPERVISOR CBC WITH AUTO DIFFERENTIAL Early AM 05/14/2023 8:07 AM URANIUM PROCESSING SUPERVISOR TSH Early AM 05/14/2023 8:07 AM URANIUM PROCESSING SUPERVISOR ETHANOL SERUM OR PLASMA Today 05/13/2023 12:07 PM URANIUM PROCESSING SUPERVISOR SCAN-CT INTERPRETATION 05/12/2023 12:00 AM URANIUM PROCESSING SUPERVISOR SCAN-ULTRASOUND REPORT 05/12/2023 12:00 AM URANIUM PROCESSING SUPERVISOR SCAN-CT INTERPRETATION 05/11/2023 12:00 AM URANIUM PROCESSING SUPERVISOR SCAN-CT INTERPRETATION 05/11/2023 12:00 AM URANIUM PROCESSING SUPERVISOR SCAN-ULTRASOUND REPORT 05/08/2023 12:00 AM URANIUM PROCESSING SUPERVISOR SCAN-CT INTERPRETATION 04/21/2023 12:00 AM URANIUM PROCESSING SUPERVISOR SUPRAGLOTTIC-LMA Routine 04/12/2023 3:58 PM URANIUM PROCESSING SUPERVISOR BEDSIDE US STUDY ARCHIVE Routine 04/12/2023 3:35 PM URANIUM PROCESSING SUPERVISOR LIGATION SAPHENO FEMORAL JUNCTION Tier 4 04/12/2023 3:33 PM URANIUM PROCESSING SUPERVISOR Varicose veins of lower extremities with complications, right Case Notes T/F - 2HRSSUPINE POSITION Special Needs 5ft10.98in 128.8kg 39.63 BMI BASIC METABOLIC PANEL Preop 04/12/2023 12:37 PM URANIUM PROCESSING SUPERVISOR CBC W PLT NO DIFF Preop 04/12/2023 12: 37 PM URANIUM PROCESSING SUPERVISOR URINE STAT 04/12/2023 12:10 PM URANIUM PROCESSING SUPERVISOR SCAN-CARDIAC STRIP 04/12/2023 12 :00 AM URANIUM PROCESSING SUPERVISOR from Last 3 Months Results * SCAN-OPERATIVE/PROCEDURE REPORT (06/16/2023 12:00 AM URANIUM PROCESSING SUPERVISOR) Scanner OTHER * SCAN-RADIOLOGY REPORT (06/14/2023 12:00 AM URANIUM PROCESSING SUPERVISOR) Anatomical Region Laterality Modality Other Scanner OTHER * US VENOUS LOWER EXTREMITY RIGHT (06/09/2023 11:30 AM URANIUM PROCESSING SUPERVISOR) Anatomical Region Laterality Modality LEGS, LEG R, Abdomen Ultrasound 06/09/2023 11:5 9 AM URANIUM PROCESSING SUPERVISOR Impressions 06/09/2023 11:59 AM URANIUM PROCESSING SUPERVISOR Normal right lower extremity venous ultrasound, no sign of deep venous thrombosis. Dictated by Valentín Ontiveros MD @ 06/09/2023 11:59:26 AM (Electronically Signed) Narrative 06/09/2023 11:59 AM URANIUM PROCESSING SUPERVISOR For Patients: ??As a result of the [...] COMPLETE TA AND TV (06/08/2023 11:25 AM URANIUM PROCESSING SUPERVISOR) Anatomical Region Laterality Modality Pelvis Ultrasound 06/08/2023 12:5 0 PM URANIUM PROCESSING SUPERVISOR Impressions 06/08/2023 12:50 PM URANIUM PROCESSING SUPERVISOR Solid and cystic left ovarian lesion, not significantly changed, measuring 4.5 cm. Little, if any, internal blood flow. Gynecology referral recommended. Dictated by Sudhakar Contreras MD @ Jun 08 2023 12:50PM (Electronically Signed) ?? Narrative 06/08/2023 12:50 PM URANIUM PROCESSING SUPERVISOR For Patients: ??As a result of the Cures Act, medical imaging exams and procedure reports are released immediately into your electronic medical record. ??You may view this report before your referring provider. ??If you have questions, please contact your health care provider. INDICATION: Follow-up left ovary COMPARISON: MRI [facility] 10/05/2022 TECHNIQUE: 2D khan scale and color [...] care provider. INDICATION: Follow-up left ovary COMPARISON: [facility] 10/05/2022 TECHNIQUE: 2D khan scale and [...] There are no suspicious fluid collections within [id number]. IMPRESSION: Solid and cystic left ovarian lesion, not significantly changed, measuring4.5 cm. Little, if any, internal blood flow. Gynecology referralrecommended. Dictated by Sudhakar Contreras MD @ Jun 08 2023 12:50PM (Electronically Signed) Kika ATKINS US * SCAN-MRI INTERPRETATION (05/25/2023 12:00 AM URANIUM PROCESSING SUPERVISOR) Only the most recent of2 resultswithin the time period is included. Anatomical Region Laterality Modality Other Scanner OTHER * MR SPINE CERVICAL WO (05/25/2023 12:00 AM URANIUM PROCESSING SUPERVISOR) Anatomical Region Laterality Modality Spine, CERVICAL SPINE Magnetic R esonance Mee ATKINS MR * COMPLIANCE DRUG ANALYSIS [[id number]] (05/14/2023 10:36 AM URANIUM PROCESSING SUPERVISOR) 6-MONOACETYL MORPHINE NEG NEG ng/mL 05/18/2023 9:25 AM [facility] AMPHETAMINE URINE NEG <=500 ng/mL 05/18/2023 9:25 AM [facility] BARBITURATE URINE NEG <=200 ng/mL 05/18/2023 9:25 AM [facility] BENZODIAZEPINE URINE NEG <=100 ng/mL 05/18/2023 9:25 AM [facility] BUPRENORPHRINE URINE NEG <=5 ng/mL 04/22 9:25 AM [facility] COCAINE METAB URINE NEG <=300 ng/mL 05/18/2023 9:25 AM [facility] ETHYLGLUCURONIDE URINE NEG <=250 ng/mL 05/18/2023 9:25 AM [facility] FENTANYL URINE NEG <=4 ng/mL 05/18/2023 9:25 AM [facility] METHADONE URINE NEG <=300 ng/mL 05/18/2023 9:25 AM [facility] OPIATES URINE NEG <=300 ng/mL 05/18/2023 9:25 AM [facility] OXYCODONE URINE NEG <=100 ng/mL 05/18/2023 9:25 AM [facility] PROPOXYPHENE URINE NEG <=300 ng/mL 05/18/2023 9:25 AM [facility] THC 50 URINE NEG <=50 ng/mL 05/18/2023 9:25 AM [facility] TRAMADOL NEG <=200 ng/mL 05/18/2023 9:25 AM [facility] PH URINE 7.0 5.0 - 7.0 05/18/2023 9:25 AM [facility] CREAT UR 50 >=20 mg/dL 05/18/2023 9:25 AM [facility] MASS SPECTROMETRY URINE See Below 05/18/2023 9:25 AM [facility] Comment:Acetaminophen, Cital opram, Citalopram metabolite, Diphenhydramine, Gabapentin, Lamotrigine, Noroxycodone and Trazodone metabolite present. Urine URINE SPECIMEN / Unknown Non-Blood / Unknown 05/14/2023 10:36 AM [facility] 05/14/2023 10:46 AM [facility] - 05/18/2023 9:25 AM [facility] Current Facility-Administered Medications: aluminum-magnesium hydroxide-simethicone (MAALOX [...] Release to patient->Immediate Tere Torres MD URINE [facility] [address] [place] [address], * (ABNORMAL) Drug screen, rapid urine inhouse TODAY (05/14/2023 10:36 AM URANIUM PROCESSING SUPERVISOR) THC METABOLITES,MAGI L Not Detected Not Detected 05/14/2023 11:00 AM [facility]- NTRAL LABORATORY PCP,QUAL Not Detected Not Detected 05/14/2023 11:00 AM [facility]- NTRAL LABORATORY COCAINE,QUAL Not Detected Not Detected 05/14/2023 11:00 AM [facility]- NTRAL LABORATORY METHAMPHETAMINE , QUALITATIVE Not Detected Not Detected 05/14/2023 11:00 AM [facility]- NTRAL LABORATORY OPIATES,QUAL Not Detected Not Detected 05/14/2023 11:00 AM [facility]-CE NTRAL LABORATORY AMPHETAMINE, QUALITATIVE Not Detected Not Detected 05/14/2023 11:00 AM [facility]- NTRAL LABORATORY BENZODIAZEPINES ,QUAL Non-negative , consider further testing if indicated(A) Not Detected 05/14/2023 11:00 AM URANIUM PROCESSING SUPERVISOR [facility]-CE NTRAL LABORATORY TRICYCLICS,QUAL Not Detected Not Detected 05/14/2023 11:00 AM [facility]- NTRAL LABORATORY METHADONE, QUALITATIVE Not Detected Not Detected 05/14/2023 11:00 AM [facility]- NTRAL LABORATORY BARBITURATES,QU AL Not Detected Not Detected 05/14/2023 11:00 AM [facility]- NTRAL LABORATORY OXYCODONE, QUALITATIVE Not Detected Not Detected 05/14/2023 11:00 AM [facility] LAB[facility]-CE [facility] LAB[facility] BUPRENORPHINE, QUALITATIVE Not Detected Not Detected 05/14/2023 11:00 AM [facility] Urine URINE SPECIMEN / Unknown Non-Blood / Unknown 05/14/2023 10:36 AM URANIUM PROCESSING SUPERVISOR 05/14/2023 10:46 AM URANIUM PROCESSING SUPERVISOR Narrative [facility]-CENTRAL LABORATORY - 05/14/2023 11:00 AM URANIUM PROCESSING SUPERVISOR Please Note: ?? This is a screening [...] order PCP confirmation. Rizwan Garcia MD [facility] [address] [place] [address], * UA W/ SEDIMENT EXAM REFLEXED PER CRITERIA (05/14/2023 10:36 AM URANIUM PROCESSING SUPERVISOR) COLOR Yellow Yellow Color 05/14/2023 10:50 AM [facility] TRAL LABORATORY CLARITY Clear Clear Clarity 05/14/2023 10:50 AM [facility] TRAL LABORATORY SPECIFIC GRAVITY,URINE 1.010 1.010, 1.015, 1.020, 1.025 05/14/2023 10:50 AM [facility] TRA LABORATORY PH,URINE 7.0 6.0, 7.0, 8.0, 5.5, 6.5, 7.5, 8.5 05/14/2023 10:50 AM [facility] UROBILINOGEN, QUALITATIVE Normal Normal EU/dl 05/14/2023 10:50 AM [facility] TRAL LABORATORY PROTEIN, URINE Negative Negative mg/dL 05/14/2023 10:50 AM [facility] TRAL LABORATORY GLUCOSE, URINE Negative Negative mg/dL 05/14/2023 10:50 AM [facility] TRAL LABORATORY KETONES,URINE Negative Negative mg/dL 05/14/2023 10:50 AM [facility] LAB[facility] BILIRUBIN,URI NE Negative Negative 05/14/2023 10:50 AM [facility] TRAL LABORATORY OCCULT BLOOD,URINE Negative Negative 05/14/2023 10:50 AM [facility] TRAL LABORATORY NITRITE Negative Negative 05/14/2023 10:50 AM [facility] LAB[facility] LEUKOCYTE ESTERASE Negative Negative 05/14/2023 10:50 AM [facility] Urine URINE SPECIMEN / Unknown Non-Blood / Unknown 05/14/2023 10:36 AM URANIUM PROCESSING SUPERVISOR 05/14/2023 10:46 AM [facility] Tere Torres MD URINE [facility] [address] [place] [id number], * (ABNORMAL) CBC WITH AUTO DIFFERENTIAL (05/14/2023 8:07 AM URANIUM PROCESSING SUPERVISOR) WHITE BLOOD COUNT 13.2(H) 4.5 - 11.0 thou/cu mm 05/14/2023 8:48 AM URANIUM PROCESSING SUPERVISOR [facility] TRA LABORATORY RED BLOOD COUNT 4.05 4.00 - 5.20 mil/cu mm 05/14/2023 8:48 AM [facility] HEMOGLOBIN 11.3(L) 12.0 - 16.0 g/dL 05/14/2023 8:48 AM [facility] TRAL LABORATORY HEMATOCRIT 34.6 33.0 - 51.0 % 05/14/2023 8:48 AM [facility] TRAL LABORATORY MCV 85 80 - 100 fL 05/14/2023 8:48 AM [facility] TRAL LABORATORY MCH 27.9 26.0 - 34.0 pg 05/14/2023 8:48 AM [facility] TRAL LABORATORY MCHC 32.7 32.0 - 36.0 g/dL 05/14/2023 8:48 AM [facility] TRAL LABORATORY RDW 14.0 11.5 - 15.5 % 05/14/2023 8:48 AM [facility] TRAL LABORATORY PLATELET COUNT 400 140 - 440 thou/cu mm 05/14/2023 8:48 AM [facility] TRAL LABORATORY MPV 8.5 6.5 - 11.0 fL 05/14/2023 8:48 AM [facility] TRAL LABORATORY NRBC 0.0 % 05/14/2023 8:48 AM [facility] TRAL LABORATORY ABS NRBC 0.0 thou /cu mm 05/14/2023 8:48 AM [facility] TRAL LABORATORY % NEUT 74.1 % 05/14/2023 8:48 AM [facility] TRAL LABORATORY % LYMPH 16.7 % 05/14/2023 8:48 AM [facility] TRAL LABORATORY % MONO 6.8 % 05/14/2023 8:48 AM [facility] TRAL LABORATORY % EOS 1.4 % 05/14/2023 8:48 AM [facility] TRAL LABORATORY % BASO 0.3 % 05/14/2023 8:48 AM [facility] TRAL LABORATORY % IMMATURE GRAN (METAS,MYELOS,NH OS) 0.7 % 05/14/2023 8:48 AM [facility] TRAL LABORATORY ABSOLUTE NEUTROPHILS 9.8(H) 1.7 - 7.0 thou/cu mm 05/14/2023 8:48 AM [facility] TRAL LABORATORY ABSOLUTE LYMPHOCYTES 2.2 0.9 - 2.9 thou/cu mm 05/14/2023 8:48 AM URANIUM PROCESSING SUPERVISOR [facility] TRAL LABORATORY ABSOLUTE MONOCYTES 0.9(H) <0.9 thou/cu mm 05/14/2023 8:48 AM URANIUM PROCESSING SUPERVISOR [facility] TRAL LABORATORY ABSOLUTE EOSINOPHILS 0.2 <0.5 thou/cu mm 05/14/2023 8:48 AM URANIUM PROCESSING SUPERVISOR [facility] TRAL LABORATORY ABSOLUTE BASOPHILS 0.0 <0.3 thou/cu mm 05/14/2023 8:48 AM URANIUM PROCESSING SUPERVISOR [facility] TRAL LABORATORY ABSOLUTE IMMATURE GRANULOCYTES(MET ,MYELOS,PROS) 0.1 <0.3 thou/cu mm 05/14/2023 8:48 AM URANIUM PROCESSING SUPERVISOR [facility] TRAL LABORATORY Blood BLOOD SPECIMEN / Unknown Venipuncture / Unknown 05/14/2023 8:07 AM URANIUM PROCESSING SUPERVISOR 05/14/2023 8:38 AM URANIUM PROCESSING SUPERVISOR Tere Torres MD [facility] [address] [place] [address], * HEMOGLOBIN A1C SCREENING (05/14/2023 8:07 AM URANIUM PROCESSING SUPERVISOR) HEMOGLOBIN A1C SCREENING 5.7 <=6.4 % 05/14/2023 12:42 PM URANIUM PROCESSING SUPERVISOR [facility] LAB[facility] Blood BLOOD SPECIMEN / Unknown Venipuncture / Unknown 05/14/2023 8:07 AM URANIUM PROCESSING SUPERVISOR 05/14/2023 8:38 AM URANIUM PROCESSING SUPERVISOR Narrative [facility] - 05/14/2023 12:42 PM URANIUM PROCESSING SUPERVISOR ? (<5.7%) ?Normal ? (5.7% to 6.4%) ? Indicates prediabetes ? (>=6.5%) ? Confirms diabetes Falsely low levels may be seen with: Recent Transfusion, Recent Significant Blood Loss, Hemolytic Diseases, or Falsely elevated levels may be seen with: Untreated Anemias, Splenectomy Tere Torres MD CHEMISTRY Performing Organization Address [facility] Co de Phone Number [facility] [address] [place] [address], * TSH (05/14/2023 8:07 AM URANIUM PROCESSING SUPERVISOR) TSH 2.07 0.27 - 4.20 uIU/mL 05/14/2023 9:26 AM URANIUM PROCESSING SUPERVISOR [facility] Blood BLOOD SPECIMEN / Unknown Venipuncture / Unknown 05/14/2023 8:07 AM URANIUM PROCESSING SUPERVISOR 05/14/2023 8:39 AM [facility] LABORATORY - 05/14/2023 9:26 AM URANIUM PROCESSING SUPERVISOR In Adults, TSH values between 5.00 and 10.00 uIU/ml do not necessarily indicate the presence of Hypothyroidism. Correlation with clinical findings such as presence of goiter and/or Thyroperoxidase (TPO) Antibody may be helpful. For more information please refer to CAROL[place] 2004; 291: 228-238. Tere Torres MD CHEMISTRY Performing Organization Address [facility] Co de Phone Number [facility] [address] [place] [address], * (ABNORMAL) LIPID PANEL (05/14/2023 8:07 AM URANIUM PROCESSING SUPERVISOR) CHOLESTEROL,TOTAL 258(H) 100 - 199 mg/dL 05/14/2023 9:26 AM [facility] TRAL LABORATORY Comment: Cholesterol, Total Reference Ranges Desirable <200 mg/dL Borderline 200-239 mg/dL High >=240 mg/dL TRIGLYCERIDES 138 <150 mg/dL 05/14/2023 9:26 AM URANIUM PROCESSING SUPERVISOR [facility] TRAL LABORATORY HDL CHOLESTEROL 41 >40 mg/dL 9:26 AM URANIUM PROCESSING SUPERVISOR [facility] TRAL LABORATORY NON-HDL CHOLESTEROL 217(H) <145 mg/dl 05/14/2023 9:26 AM [facility] TRAL LABORATORY CHOL/HDL RATIO 6.29(H) <4.50 05/14/2023 9:26 AM [facility] TRAL LABORATORY LDL CHOLESTEROL 189(H) <=130 mg/dL 05/14/2023 9:26 AM [facility] VLDL CHOLESTEROL 28 <=30 mg/dL 05/14/2023 9:26 AM [facility] PROVIDER ORDERED STATUS RANDOM 05/14/2023 9:26 AM [facility] Blood BLOOD SPECIMEN / Unknown Venipuncture / Unknown 05/14/2023 8:07 AM URANIUM PROCESSING SUPERVISOR 05/14/2023 8:39 AM [facility] Tere Torres MD CHEMISTRY [facility] [address] [place] [address], * (ABNORMAL) BASIC METABOLIC PANEL (05/14/2023 8:07 AM URANIUM PROCESSING SUPERVISOR) Only the most recent of2 resultswithin the time period is included. SODIUM 141 136 - 145 mmol/L 05/14/2023 9:26 AM [facility] POTASSIUM 3.7 3.5 - 5.1 mmol/L 05/14/2023 9:26 AM [facility] TRAL LABORATORY CHLORIDE 106 98 - 107 mmol/L 05/14/2023 9:26 AM [facility] CO2,TOTAL 23 22 - 29 mmol/L 05/14/2023 9:26 AM [facility] TRAL LABORATORY ANION GAP 12 5 - 18 05/14/2023 9:26 AM [facility] TRAL LABORATORY GLUCOSE 112(H) 70 - 99 mg/dL 05/14/2023 9:26 AM [facility] TRAL LABORATORY CALCIUM 9.3 8.6 - 10.0 mg/dL 05/14/2023 9:26 AM [facility] TRAL LABORATORY BUN 14 6 - 20 mg/dL 05/14/2023 9:26 AM [facility] CREATININE 0.80 0.50 - 0.90 mg/dL 05/14/2023 9:26 AM [facility] TRAL LABORATORY BUN/CREAT RATIO 18 10 - 20 9:26 AM URANIUM PROCESSING SUPERVISOR [facility] TRAL LABORATORY eGFR >90 >90 mL/min/1.7 3m2 05/14/2023 9:26 AM URANIUM PROCESSING SUPERVISOR [facility] TRAL LABORATORY Comment:As of 2021, eG FR is calculated by the CKD-EPI creatinine equation without race adjustment. ??eGFR can be influenced by muscle mass, exercise, and diet. ??The reported eGFR is an estimation only and is only applicable if the renal function is stable. Blood BLOOD SPECIMEN / Unknown Venipuncture / Unknown 05/14/2023 8:07 AM URANIUM PROCESSING SUPERVISOR 05/14/2023 8:39 AM URANIUM PROCESSING SUPERVISOR Tere Torres MD CHEMISTRY Performing Organization Address City/[facility]/ZIP Co de Phone Number [facility] [address] [place] [address], * Ethanol, serum TODAY (05/13/2023 12:07 PM URANIUM PROCESSING SUPERVISOR) ETHANOL <0.010 <0.010 g/dL 05/13/2023 1:02 PM URANIUM PROCESSING SUPERVISOR [facility] Blood BLOOD SPECIMEN / Unknown Butterfly / Unknown 05/13/2023 12:07 PM URANIUM PROCESSING SUPERVISOR 05/13/2023 12:22 PM URANIUM PROCESSING SUPERVISOR Rizwan Garcia MD CHEMISTRY Performing Organization Address City/[facility]/ZIP Co de Phone Number [facility] [address] [place] [address], [place] * SCAN-ULTRASOUND REPORT (05/12/2023 12:00 AM URANIUM PROCESSING SUPERVISOR) Only the most recent of2 resultswithin the time period is included. Anatomical Region Laterality Modality Other Scanner OTHER * SCAN-CT INTERPRETATION (05/12/2023 12:00 AM URANIUM PROCESSING SUPERVISOR) Only the most recent of4 resultswithin the time period is included. Anatomical Region Laterality Modality Other Scanner OTHER * HCHG MASK PR5 (04/12/2023 3:58 PM URANIUM PROCESSING SUPERVISOR) Narrative Beryl Ba CRNA - 04/12/2023 3:58 PM URANIUM PROCESSING SUPERVISOR Beryl Ba CRNA ? 04/12/2023 ??3:58 PM Procedure: Supraglottic Patient location during procedure: OR Supraglottic Airway Properties Mask Ventilation: easy Type: unique Tube Size: 4 Insertion Attempts: 1 Placement Verification: auscultation and CO2 detection Assessment Assessment: atraumatic and dentition unchanged Sujit Naranjo MD ANESTHESIA PX N OTE ORDERABLES * (ABNORMAL) CBC with Platelet no Diff (04/12/2023 12:37 PM URANIUM PROCESSING SUPERVISOR) WHITE BLOOD COUNT 12.3(H) 4.5 - 11.0 thou/cu mm 04/12/2023 12:46 PM [facility] RED BLOOD COUNT 4.79 4.00 - 5.20 mil/cu mm 04/12/2023 12:46 PM [facility] HEMOGLOBIN 13.1 12.0 - 16.0 g/dL 04/12/2023 12:46 PM [facility] HEMATOCRIT 39.6 33.0 - 51.0 % 04/12/2023 12:46 PM [facility] MCV 83 80 - 100 fL 04/12/2023 12:46 PM [facility] MCH 27.3 26.0 - 34.0 pg 04/12/2023 12:46 PM [facility] MCHC 33.1 32.0 - 36.0 g/dL 04/12/2023 12:46 PM [facility] RDW 14.3 11.5 - 15.5 % 04/12/2023 12:46 PM [facility] PLATELET COUNT 462(H) 140 - 440 thou/cu mm 04/12/2023 12:46 PM [facility] MPV 8.2 6.5 - 11.0 fL 04/12/2023 12:46 PM [facility] NRBC 0.0 % 04/12/2023 12:46 PM [facility] ABS NRBC 0.0 thou /cu mm 04/12/2023 12:46 PM [facility] Blood BLOOD SPECIMEN / Unknown Venipuncture / Unknown 04/12/2023 12:37 PM URANIUM PROCESSING SUPERVISOR 04/12/2023 12:41 PM URANIUM PROCESSING SUPERVISOR Erlinda Degroot NP HEMATOLOGY [facility] SENDOUT [place] ZIP [id number] [place] [address] * Urine Lab Performed - [facility] Only (04/12/2023 12:10 PM URANIUM PROCESSING SUPERVISOR) ,URIN E Negative Negative 04/12/2023 12:38 [address] URANIUM PROCESSING SUPERVISOR [facility] Urine URINE SPECIMEN / Unknown Non-Blood / Unknown 04/12/2023 12:10 PM URANIUM PROCESSING SUPERVISOR 04/12/2023 12:25 PM URANIUM PROCESSING SUPERVISOR Vamshi Wright MD URINE Performing Organization Address City/[facility]/ZIP Co de Phone Number [facility] SENDOUT INTERNAL [address]IP [phone] [place] [address] * SCAN-CARDIAC STRIP (04/12/2023 12:00 AM URANIUM PROCESSING SUPERVISOR) Narrative 04/12/2023 12:00 AM URANIUM PROCESSING SUPERVISOR Ordered by an unspecified provider. Other Clinical [...] Preferences, Provider to review later Care Teams Supervisor [employer] Relationship Specialty Start Date End Date Kika Johnston PA [address] [place] [address] PCP - General Physician Wrist Liner 02/11/21
--- OUTSIDE RECORDS SUMMARY | 2023-06-23 11:01 | XMS_ITS | Encounter Summary ---
Author Name Unknown Organization [facility] Address [address] [place] [phone] Phone Care Team Providers Care Online Content Coordinator Name Role Phone Unavailable Primary Care Provider Unavailabl e Reason for Referral * Consult/Test/Treat (Routine) - New Request Specialty Diagnoses / Procedures Referred By Devon t Referred To Contact Internal Medicine / MEDICINE Diagnoses Asthma, unspecified asthma severity, unspecified whether complicated, unspecified whether persistent Sudhakar Koenig MD [address] [place] [address] PATIENT CHOICE Referral ID Status Reason Start Date Expiration Date V isits Requested Visits Authorized [id number] New Request 01/09/2023 01/10/2024 1 1 * Consult/Test/Treat (Routine) - Closed Specialty Diagnoses / Procedures Referred By Contac t Referred To Contact Dermatology / DERMATOLOGY Diagnoses Rash Anaphylaxis, initial encounter Sudhakar Koenig MD [address] [place] [address] Referral ID Status Reason Start Date Expiration Date Visits Re quested Visits Authorized [id number] Closed 01/09/2023 01/10/2024 1 1 Reason for Visit * Reason Comments Allergic Reaction Derm Problem * Auth/Cert (Routine) Specialty Diagnoses / Procedures Referred By Contac t Referred To Contact MEDICINE Diagnoses Hypokalemia Rash Petechiae Polyarthralgia Near syncope Anaphylaxis, initial encounter Leeann Bain MD [address] [place] [address] Medicine [address] [place] [address] Referral ID Status Reason Start Date Expiration Date Visits Re quested Visits Authorized [id number] 1 1 Encounter Details Date Type Department Care Team Description 01/07/2023 7:17 AM CDT - 01/09/2023 2:40 PM CDT Hospital Encounter [facility] Medicine [address] [place] [address] Leeann Bain MD [address] [place] [phone] Sudhakar Koenig MD [address] [place] [address] [address] [place], [place] [phone] Polyarthralgia Discharge Disposition: Discharged to home or [...] bipolar disorder Anxiety Chronic back pain Continue COMMODITY ANALYST hydroxyzine, lamotrigine, mirtazapine, buspirone, bupropion, aripiprazole. H/o genital HSV Continue COMMODITY ANALYST valacyclovir PERTINENT STUDIES & CONSULTS: Dermatology PENDING [...] needed. Please make an appointment with an [facility] provider: Order Comments: -- Please call [phone] [phone]) to schedule an [facility] appointment with dermatology within 4 week(s) of [...] mg tablet Commonly known as: BUSPAR CHOLEcalciferol 66558 UNITS capsule Commonly known as: VITAMIN D3 [...] Your Medications These medications were sent to [facility] Discharge Pharmacy - [place] [address] Hours: / albuterol 108 (90 BASE) mcg/act [...] hours as needed. 0 CHOLEcalciferol (VITAMIN D3) 42589 UNITS oral capsule Take 1 capsule (50,000 [...] bipolar disorder Anxiety Chronic back pain Continue COMMODITY ANALYST hydroxyzine, lamotrigine, mirtazapine, buspirone, bupropion, aripiprazole. H/o genital HSV Continue COMMODITY ANALYST valacyclovir Resolved Problems: Discharge planning: Pending improvement [...] Internal Medicine, PGY-1 01/08/23 08:51 Charge Capture Prop Drawer documented in this encounter H&P Notes * [...] bipolar disorder Anxiety Chronic back pain Continue COMMODITY ANALYST hydroxyzine, lamotrigine, mirtazapine, buspirone, bupropion, aripiprazole. H/o genital HSV Continue COMMODITY ANALYST valacyclovir History of Present Illness: Jennifer Tellez is a 42 y.o. female with past medical history of asthma, bipolar disorder, PTSD, and varicose veins who presented 01/07/2023 with 1 week of rash and now polyarthralgia. According to the patient, she started developing a rash last Monday, after [place] the [place]. She presented to the ED in [place], where she received 1 dose Solu-Medrol and Benadryl. The rash did not improve so she presented again on Thursday 01/04, and she was transferred to [facility]. She was admitted and received epinephrine, Benadryl, [...] she lives alone in her apartment in [place] and has has [place], including soaps or detergents. She does not work, is on disability due to her mental illness. She states she used a body spray given to her by her friend on Monday however this issomething she has used in the past. She went swimming in [facility] Monday but did not submerge her [...] been living with her friend here in [place], and has not been back to her home in [place]. Her rash has not c hanged since [...] REVIEW BY PHARMACY PHARMACY DISCHARGE NOTE Jennifer Tellze : 1980 Sex: female Pharmacy service was [...] Indications: Acute Urticaria, Life-Threatening Hypersensitivity Reaction CHOLEcalciferol 14001 UNITS capsule Commonly known as: VITAMIN D3 [...] service at [facility] ([employer]) or [phone]. If no response within needed timeframe, please contact central pharmacy via phone at [phone]. * Rosaura Bergeron MD - 01/09/2023 8:00 AM CDTAssociated Order(s): CONSULT TO DERMATOLOGY [facility] Teledermatology Store and Forward Consult Note Jennifer [...] not hesitate to contact the dermatology resident/faculty relocation services specialist for any additional questions or concerns. Clinical photographs reviewed and case discussed with attending physician: Rubio Hernandez DO, MS PGY-2 Dermatology Resident [facility] 308:[phone] HPI Based on chart review and direct communication with consulting team - 42 y/o female h/o of bipolar 2, allergies including anaphylaxis to shellfish, rash w/ cephalosporins & penicillins, presenting with hives, itching, facial swelling, severe joint pain in her knees and arms, as well as significant dizziness with standing/ambulation. No intraoral or genital lesions. She was just seen in the [place] ED on the with suspected anaphylaxis to perfume. Notedsome itchiness and developed hives throughout her body which progressively worsened received steroids and Benadryl. However continued to sleep in the sheets w/ perfume spray on it and woke up with facial swelling and trouble breathing and AGAIN went to the [place] ER the was given epinephrine, steroids, Benadryl, famotidine and was transferred to [facility] where she was admitted and watched overnight [...] in real time. Please contact me via [employer] staff message if you note any errors requiring clarification. * Amy Martin RN - 01/07/2023 7:52 AM CDT Pt bb [facility] from home with reports of worsening [...] went to the ER on Monday in [place] where she received steroids and benadryl. Rash [...] that she was in a lai in [place] on Monday prior to onset, but she [...] We attempted to order a test for [place] spotted fever but were unable to identify [...] NOTE: Consulting team: Medicine consulted on 01/07/23 [facility]: Urticarial vs morbilliform rash and to [...] lesions. She was just seen in the [place] ED on the with suspected anaphylaxis to perfume. Noted some itchiness and developed hives throughout her body which progressively worsened received steroidsand Benadryl. However continued to sleep in the sheets w/ perfume spray on it and woke up with facial swelling and trouble breathing and AGAIN went to the [place] ER the was given epinephrine, steroids, Benadryl, famotidine and was transferred to [facility] where she was admitted and watched overnight [...] Shelli Hernandez DO, MS PGY-2 Dermatology Resident [facility] 01/08/23 11:37 * Nursing Assessment - [...] Shift Summary:pt was [id number],pt is A&O,up independent,pt was comforted to [...] week ago and went to ER in [place] where she received steroids and Benadryl. Rash continued and patient woke up with facial swelling and trouble breathing so she returned to the ER and received epi, steroids, Benadryl and famotidine before transferring to [facility] for brief admission 01/04-. She was discharged [...] works. Also mentioning visiting or tongue [place] Monday but did not submerge her neck or head. In the ED patient had a normal EKG, bedside ultrasound, low potassium(which was replaced) and elevated WBC, C-reactive protein and ESR. Patient received Benadryl, Solu-Medrol, DuoNeb, mag for wheezing and epinephrine. IP admit order will be placed in accordance with the patient class designation above. Please page the BMS Team via [email or web address] with clinical updates or status changes. Note [...] she was also in a lai in [place] prior to developing the rash), Lyme disease, [...] CDT) Sodium 137 135 - 148 mEq/L [facility] Potassium 3.5 3.5 - 5.3 mEq/L [facility] Chloride 100 92 - 108 mEq/L [facility] CO2 27 22 - 30 mEq/L [facility] AnGap 10 8 - 16 mEq/L [facility] Glucose 80 70 - 100 mg/dL [facility] BUN 16 6 - 20 mg/dL [facility] Creatinine 0.89 0.50 - 1.00 mg/dL [facility] Calcium 9.3 8.6 - 10.0 mg/dL [facility] eGFR (2020 CKD-EPI) 83 >=60 ml/min/1.7 3m2 [facility] Comment: The estimated glomerular filtration rate (eGFR) was calculated using the CKD-EPI 2020 creatinine equation, which does not include race as a factor. This equation is validated in individuals 18 years of age and older, and eGFR is normalized to a body surface area of 1.73m^2. Blood 01/09/2023 7:05 AM CDT 01/09/2023 7:38 AM CDT Sudhakar Koenig MD LABORATORY Performing Organization Address [facility] Co de Phone Number [facility] [address] [address] * (ABNORMAL) CBC WITH PLATELET (01/09/2023 7:05 AM CDT) WBC 19.87(H) 4.00 - 10.00 k/cmm [facility] RBC 4.31 3.90 - 5.20 m/cmm [facility] Hgb 11.7 11.5 - 15.7 g/dL [facility] Hematocrit 36.1 34.0 - 45.0 % [facility] MCV 83.8 80.0 - 100.0 fL [facility] MCH 27.1 25.0 - 32.0 pg [facility] MCHC 32.4 31.0 - 36.0 g/dL [facility] RDW 13.5 11.5 - 14.5 % [facility] Plt 402(H) 150 - 400 k/cmm [facility] MPV 8.8 6.5 - 12.5 fL [facility] NRBC 0.1(H) 0.0 - 0.0 % [facility] Blood 01/09/2023 7:05 AM CDT 01/09/2023 7:38 AM CDT Sudhakar Koenig MD LABORATORY Performing Organization Address [facility] Co de Phone Number [facility] [address] [address] * ANCA-ASSOCIATED VASCULITIS PROFILE (ANCA/MPO/PR3) (01/08/2023 9:22 AM CDT) ANCA IFA Pattern None Detected None Detected [facility] Comment: INTERPRETIVE INFORMATION: ANCA IFA Pattern Neutrophil Cytoplasmic Antibodies (C-ANCA = granular cytoplasmic staining, P-ANCA = perinuclear staining) are found in the serum of over 90 percent of patients with certain necrotizing systemic vasculitides, and usually in less than 5 percent of patients with collagen vascular disease or arthritis. Performed By: [employer] [address] [place] [address] Jewel Staker: Alex Chau MD, PhD CLIA Number: [id number] ANCA IFA Titer <1:20 <1:20 [facility] [employer] Myeloperox Antibody 0 0 - 19 AU/ml [facility] Comment: INTERPRETIVE INFORMATION: Myeloperoxidase Abs, IgG ??19 AU/mL or Less ......... Negative ??20-25 AU/mL .............. Equivocal ??26 AU/mL or Greater ...... Positive Approximately 90% of patients with a P-ANCA pattern by IFA have antibodies specific for MPO. Serine Protease 3 0 0 - 19 AU/ml [facility] [employer] Comment: INTERPRETIVE INFORMATION: Serine Proteinase 3, IgG ??19 AU/mL or Less ........ Negative ??20-25 AU/mL ............. Equivocal ??26 AU/mL or Greater ..... Positive Approximately 85% of patients with a C-ANCA pattern by IFA have antibodies specific for PR3. Blood 01/08/2023 9:22 AM CDT 01/08/2023 9:51 AM CDT Sudhakar Koenig MD LABORATORY [address] [address], * HEPATITIS B SURFACE ANTIGEN (01/08/2023 9:12 AM CDT) HBV Surface Ag Nonreactive Nonreactive [facility] Comment: Testing performed at: [facility] [address] [address] Blood 01/08/2023 9:12 AM CDT 01/08/2023 9:46 AM CDT Sudhakar Koenig MD LABORATORY [facility] [address] [address] * HEPATITIS B SURFACE ANTIBODY (01/08/2023 9:12 AM CDT) HBsAb Interpretation Reactive [facility] Comment:Reactive implies imm unity. Blood 01/08/2023 9:12 AM CDT 01/08/2023 9:46 AM CDT Sudhakar Koeing MD LABORATORY Performing Organization Address [facility] Co de Phone Number [facility] [address] [address] * (ABNORMAL) PANEL BASIC METABOLIC (BMP) (01/08/2023 9:12 AM CDT) Pathologist [facility] Sodium 138 135 - 148 mEq/L [facility] Potassium 4.3 3.5 - 5.3 mEq/L [facility] Chloride 101 92 - 108 mEq/L [facility] CO2 24 22 - 30 mEq/L [facility] AnGap 13 8 - 16 mEq/L [facility] Glucose 104(H) 70 - 100 mg/dL [facility] BUN 11 6 - 20 mg/dL [facility] Creatinine 0.70 0.50 - 1.00 mg/dL [facility] Calcium 9.4 8.6 - 10.0 mg/dL [facility] eGFR (2020 CKD-EPI) 111 >=60 ml/min/1.7 3m2 [facility] Comment: The estimated glomerular filtration rate (eGFR) was calculated using the CKD-EPI 2020 creatinine equation, which does not include race as a factor. This equation is validated in individuals 18 years of age and older, and eGFR is normalized to a body surface area of 1.73m^2. Blood 01/08/2023 9:12 AM CDT 01/08/2023 9:46 AM CDT Sudhakar Koenig MD LABORATORY Performing Organization Address [facility]/ZIP Co de Phone Number [facility] [address] [address] * (ABNORMAL) CBC WITH PLATELET (01/08/2023 9:12 AM CDT) WBC 18.86(H) 4.00 - 10.00 k/cmm [facility] RBC 4.43 3.90 - 5.20 m/cmm [facility] Hgb 12.1 11.5 - 15.7 g/dL [facility] Hematocrit 36.7 34.0 - 45.0 % [facility] MCV 82.8 80.0 - 100.0 fL [facility] MCH 27.3 25.0 - 32.0 pg [facility] MCHC 33.0 31.0 - 36.0 g/dL [facility] RDW 13.5 11.5 - 14.5 % [facility] Plt 402(H) 150 - 400 k/cmm [facility] MPV 8.9 6.5 - 12.5 fL [facility] Blood 01/08/2023 9:12 AM CDT 01/08/2023 9:43 AM CDT Sudhakar Koenig MD LABORATORY Performing Organization Address City/[facility] Co de Phone Number [facility] [address] [place] [address] * COMPLEMENT C4 (01/08/2023 9:12 AM CDT) C4 17 13 - 39 mg/dL [facility] Blood 01/08/2023 9:12 AM CDT 01/08/2023 9:46 AM CDT Sudhakar Koenig MD LABORATORY Performing Organization Address City/[facility]/ZIP Co de Phone Number [facility] [address] [place] [address] * COMPLEMENT C3 (01/08/2023 9:12 AM CDT) C3 144 81 - 157 mg/dL [facility] Blood 01/08/2023 9:12 AM CDT 01/08/2023 9:46 AM CDT Sudhakar Koenig MD LABORATORY [facility] [address] [address] * HEPATITIS C ANTIBODY WITH CONDITIONAL PCR (01/08/2023 9:12 AM CDT) Hep C Blanca Nonreactive Nonreactive [facility] Comment:Performance characte ristics have not been established with this test on patients less than 10 years of age. Blood 01/08/2023 9:12 AM CDT 01/08/2023 9:46 AM CDT Sudhakar Koenig MD LABORATORY Performing Organization Address City/[facility] Co de Phone Number [facility] [address] [address] * RHEUMATOID FACTOR (01/08/2023 9:12 AM CDT) Pathologist [facility] Rheumotoid Factor <7 <=13 IU/mL [facility] Rheum Factor Interp Negative Negative [facility] Blood 01/08/2023 9:12 AM CDT 01/08/2023 9:46 AM CDT Sudhakar Koenig MD LABORATORY Performing Organization Address [facility] Co de Phone Number [address] [address] * FELIZ SCREEN(NUCLEAR ANTIBODY IGG) (01/08/2023 9:12 AM CDT) Pathologist [facility] Nuclear Antibody IGG <1:80 <1:80 [facility] [...] not necessarily rule out SARD. Performed By: [facility] [employer] [address] [place] [address] Jewel Staker: Alex Chau MD, PhD CLIA Number: [id number] NUCLEAR ANTIBODY (FELIZ) IGG NOTES: WHEN OBSERVED, ONE OF THE FIVE BASIC PATTERNS IS REPORTED: HOMOGENEOUS, PERIPHERAL/RIM, SPECKLED, CENTROMERE OR NUCLEOLAR. IF CYTOPLASMIC FLUORESCENT IS OBSERVED, IT IS NOTED. TEST PERFORMED BY: [facility] [address] [place] [address] Serum 01/08/2023 9:12 AM CDT 01/08/2023 10:01 AM CDT Sudhakar Koenig MD LABORATORY [employer] [address] [place] [address], * HIV COMBO (01/07/2023 10:18 PM CDT) Pathologist [facility] HIV Antigen-Antibody Nonreactive Nonreactive [facility] Comment:Performance characte ristics have not been established with this test on patients less than 2 years of age. Blood 01/07/2023 10:1 8 PM CDT 01/07/2023 10:46 PM CDT Sudhakar Koenig MD LABORATORY [facility] [address] [address] * ED POTASSIUM (01/07/2023 1:10 PM CDT) Potassium 3.6 3.5 - 5.3 mEq/L [facility] Blood 01/07/2023 1:10 PM CDT 01/07/2023 1:23 PM CDT Emma Esparza PA-C LABORATORY Performing Organization Address [facility] de Phone Number [facility] [address] [address] * (ABNORMAL) GLYCOSYLATED HGB - A1C (01/07/2023 8:11 AM CDT) Hemoglobin A1C 5.7(H) 4.0 - 5.6 % [facility] Comment: Increased risk for diabetes (prediabetes): 5.7-6.4% Diabetes: greater than or equal to 6.5% * * In the absence of unequivocal hyperglycemia, diagnosis requires two abnormal test results (i.e. HbA1c and glucose) or two abnormal results from specimens collected at two different timepoints. Estimated Average Glucose 117 68 - 126 [facility] Comment: The ADA recommends reporting an estimated Average Glucose (eAG) with all hemoglobin A1c results using the equation derived from a study of 501 normal diabetic adults. Minority populations were underrepresented and children were not included. The EAG is not equivalent to a fasting glucose. Blood 01/07/2023 8:11 AM CDT 01/07/2023 10:02 AM CDT Leeann Bain MD LABORATORY Performing Organization Address City/[facility] Co de Phone Number [facility] [address] [address] * (ABNORMAL) CBC WITH PLTS/AUTO DIFF (01/07/2023 8:11 AM CDT) WBC 13.09(H) 4.00 - 10.00 k/cmm [facility] RBC 4.99 3.90 - 5.20 m/cmm [facility] Hgb 13.6 11.5 - 15.7 g/dL [facility] Hematocrit 41.4 34.0 - 45.0 % [facility] MCV 83.0 80.0 - 100.0 fL [facility] MCH 27.3 25.0 - 32.0 pg [facility] MCHC 32.9 31.0 - 36.0 g/dL [facility] RDW 13.2 11.5 - 14.5 % [facility] Plt 422(H) 150 - 400 k/cmm [facility] MPV 9.3 6.5 - 12.5 fL [facility] Automated Abs Neutrophil 10.07(H) 1.70 - 6.50 k/cmm [facility] Comment:Preliminary ANC, Fin al Result to Follow Abs Immature Granulocyte 0.12(H) 0.00 - 0.09 k/cmm [facility] Comment:The Immature Granulo cyte Absolute count contains metamyelocytes and myelocytes. Abs Neutrophil 10.07(H) 1.70 - 6.50 k/cmm [facility] Abs Lymphocyte 2.55 0.80 - 4.00 k/cmm [facility] Abs Monocyte 0.24 0.20 - 1.00 k/cmm [facility] Abs Eosinophil 0.09 0.00 - 0.60 k/cmm [facility] Abs Basophil 0.02 0.00 - 0.20 k/cmm [facility] Blood 01/07/2023 8:11 AM CDT 01/07/2023 9:59 AM CDT Leeann Bain MD LABORATORY [facility] [address] [address] * MAGNESIUM (01/07/2023 8:11 AM CDT) Magnesium 2.0 1.6 - 2.6 mg/dL [facility] Blood 01/07/2023 8:11 AM CDT 01/07/2023 8:59 AM CDT Leeann Bain MD LABORATORY [facility] [address] [address] * HS TROPONIN (01/07/2023 8:11 AM CDT) HS Troponin I <3 <=14 ng/L [facility] Blood 01/07/2023 8:11 AM CDT 01/07/2023 8:59 AM CDT Narrative [facility] - 01/07/2023 9:35 AM CDT First Occurrence of the Troponin order is to be drawn Stat by Nursing staff on the unit. Leeann Bain MD LABORATORY Performing Organization Address City/[facility]/ZIP Co de Phone Number [facility] [address] [address] * RPR SYPHILIS SCREEN (01/07/2023 8:11 AM CDT) RPR Screen Non-Reactive Non-Reacti ve [facility] RPR Titer Not Reflexed [facility] Blood 01/07/2023 8:11 AM CDT 01/07/2023 9:00 AM CDT Leeann Bain MD LABORATORY Performing Organization Address [facility] Co de Phone Number [facility] [address] [address] * BLOOD AEROBIC/ANAEROBIC CULTURE (01/07/2023 8:11 AM CDT) Final Report No growth after 5 days. [facility] Blood (Peripheral) 01/07/2023 8:11 AM CDT 01/07/2023 9:39 AM CDT Narrative [facility] - 01/13/2023 8:01 AM CDT Blood volume less than 5 mL. Culture results may be compromised. Suggest repeat collection. Leeann Bain MD LAB MICROBIOLOGY Performing Organization Address [facility] Co de Phone Number [address] [address] * BLOOD AEROBIC/ANAEROBIC CULTURE (01/07/2023 8:11 AM CDT) Final Report No growth after 5 days. [facility] Blood (Peripheral) 01/07/2023 8:11 AM CDT 01/07/2023 5:56 PM CDT Narrative [facility] - 01/13/2023 8:01 AM CDT collected at 1530 01/07/2023 15:38:20 [facility] Blood volume less than 5 mL. Culture results may be compromised. Suggest repeat collection. Leeann Bain MD LAB MICROBIOLOGY [facility] [address] [address] * ANTISTREPTOLYSIN O BLANCA (ASO) (01/07/2023 8:11 AM CDT) ASO Blanca <55 <=330 IU/mL [facility] Comment: REFERENCE INTERVAL: Streptolysin O Antibody Elevated [...] of a recent Streptococcus infection. Performed By: [facility] [employer] [address] [place] [address] Jewel Staker: Alex Chau MD, PhD CLIA Number: [id number] Serum 01/07/2023 8:11 AM CDT 01/07/2023 8:59 AM CDT Leeann Bain MD LABORATORY Performing Organization Address City/[facility]/ZIP Co de Phone Number [facility] [address] [place] [address], * LIPASE (01/07/2023 8:11 AM CDT) Lipase 15 13 - 60 IU/L [facility] Blood 01/07/2023 8:11 AM CDT 01/07/2023 8:59 AM CDT Leeann Bain MD LABORATORY Performing Organization Address [facility] de Phone Number [facility] [address] [address] * (ABNORMAL) PANEL HEPATIC FUNCTION (01/07/2023 8:11 AM CDT) Total Protein 6.0(L) 6.4 - 8.3 g/dL [facility] Albumin 3.5(L) 3.8 - 5.1 g/dL [facility] Bili Total 0.3 <=1.2 mg/dL [facility] Bili Direct <0.2 <=0.3 mg/dL [facility] Alk Phos 78 35 - 104 IU/L [facility] ALT (SGPT) 21 <=33 IU/L [facility] AST(SGOT) 18 5 - 40 IU/L [facility] Blood 01/07/2023 8:11 AM CDT 01/07/2023 8:59 AM CDT Leeann Bain MD LABORATORY Performing Organization Address [facility] de Phone Number [facility] [address] [address] * LYME ANTIBODY SCREEN WITH REFLEX TO IGM/IGG BY AYANA (MODIFIED TWO TIER TESTING) (01/07/2023 8:11 AM CDT) B. burgdorferi VlsE1/pepC10 Abs, AYANA 0.62 <=0.90 IV [facility] Comment: When the Borrelia burgdorferi [...] ?antibodies to B. burgdorferi ?detected. Performed By: [facility] [employer] [address] [place] [address] Jewel Staker: Alex Chau MD, PhD CLIA Number: [id number] Serum 01/07/2023 8:11 AM CDT 01/07/2023 8:59 AM CDT Leeann Bain MD LABORATORY Performing Organization Address City/State/[facility] Co de Phone Number [facility] [address] [place] [address], * (ABNORMAL) CBC WITH PLATELET (01/07/2023 8:11 AM CDT) WBC 13.17(H) 4.00 - 10.00 k/cmm [facility] RBC 4.93 3.90 - 5.20 m/cmm [facility] Hgb 13.4 11.5 - 15.7 g/dL [facility] Hematocrit 40.5 34.0 - 45.0 % [facility] MCV 82.2 80.0 - 100.0 fL [facility] MCH 27.2 25.0 - 32.0 pg [facility] MCHC 33.1 31.0 - 36.0 g/dL [facility] RDW 13.2 11.5 - 14.5 % [facility] Plt 407(H) 150 - 400 k/cmm [facility] MPV 8.8 6.5 - 12.5 fL [facility] Blood 01/07/2023 8:11 AM CDT 01/07/2023 9:00 AM CDT Leeann Bain MD LABORATORY Performing Organization Address [facility]/ZIP Co de Phone Number [facility] [address] [address] * (ABNORMAL) ED CHEMISTRY LABS(NA,K,CL,CO2,GLU,CREAT,CA-IONIZED,ANION GAP) (01/07/2023 8:11 AM CDT) Sodium 137 135 - 148 mEq/L [facility] Potassium 2.9(AA) 3.5 - 5.3 mEq/L [facility] Comment:Critcal Result Low Chloride 104 92 - 108 mEq/L [facility] AnGap 11 8 - 16 mEq/L [facility] Glucose 96 70 - 100 mg/dL [facility] ICA, Actual 4.30(L) 4.40 - 5.20 mg/dL [facility] ICA, pH Corrected 4.41 4.40 - 5.20 mg/dL [facility] Creatinine 0.93 0.50 - 1.00 mg/dL [facility] BICARB 23 22 - 26 mEq/L [facility] eGFR (2020 CKD-EPI) 79 >=60 ml/min/1.7 3m2 [facility] Comment: The estimated glomerular filtration rate (eGFR) was calculated using the CKD-EPI 2020 creatinine equation, which does not include race as a factor. This equation is validated in individuals 18 years of age and older, and eGFR is normalized to a body surface area of 1.73m^2. Blood 01/07/2023 8:11 AM CDT 01/07/2023 8:51 AM CDT Narrative [facility] - 01/07/2023 8:57 AM CDT Critical value for Potassium called to and read back by Amy Martin RN in ED Team Center B at 01/07/2023 08:57:07 CDT by Sharyn Vincent. Leeann Bain MD LABORATORY Performing Organization Address City/[facility]/ZIP Co de Phone Number [facility] [address] [address] * (ABNORMAL) SED RATE (ESR) (01/07/2023 8:11 AM CDT) Sed Rate 25(H) 2 - 20 mm/hr [facility] Blood 01/07/2023 8:11 AM CDT 01/07/2023 9:00 AM CDT Leeann Bain MD LABORATORY Performing Organization Address [facility] Co de Phone Number [facility] [address] [address] * (ABNORMAL) C-REACTIVE PROTEIN - HS (01/07/2023 8:11 AM CDT) C-Reactive Protein - HS 17.47(H) <=5.00 mg/L [facility] Comment: Low cardiovascular risk: 0.0-1.0 mg/L Moderate cardiovascular risk: 1.0-3.0 mg/L High cardiovascular risk: >3.0 mg/L Blood 01/07/2023 8:11 AM CDT 01/07/2023 8:59 AM CDT Leeann Bain MD LABORATORY Performing Organization Address [facility] Co de Phone Number [facility] [address] [address] * ED EKG (12-LEAD) (01/07/2023 8:06 AM CDT) 01/07/2023 8:06 AM CDT Impressions [facility] CVIS EKG ORDERS - 01/07/2023 8:06 AM CDT SINUS RHYTHM ST DEVIATION AND MODERATE T-WAVE ABNORMALITY, CONSIDER ANTEROLATERAL ISCHEMIA ??[-0.1+ mV T-WAVE IN V3-V6] ABNORMAL ECG P-R Interval 148 ms QRS Interval 86 ms QT Interval 330 ms QTC Interval 383 ms P [place] 52 QRS [place] 2 T Wave [place] 10 Narrative Procedure Note Yordy Diaz MD - 01/07/[address] DEVIATION AND MODERATE T-WAVE ABNORMALITY, CONSIDER ANTEROLATERALISCHEMIA [- 0.1+ mV T-WAVE IN V3-V6] ABNORMAL ECG P-R Interval 148 ms QRS Interval 86 ms QT Interval 330 ms QTC Interval 383 ms P [place] 52 QRS [place] 2 T Wave [place] 10 Leeann Bain MD EKG [facility] CVIS EKG ORDERS * ED US CARDIAC (01/07/2023 7:57 AM CDT) Anatomical Region Laterality Modality Ultrasound Narrative 01/07/2023 4:24 PM CDT ED Cardiac Ultrasound Body Areas Imaged: Heart and Chest Wall/Lungs Indications:Shortness of Breath/Hypoxia Window: Parasternal Short [place], Parasternal Long [place], Apical 4-Chamber, and Bilateral Lungs Findings: The [...] 300 mg, Oral, DAILY, First dose on [place] 01/08/23 at 0800, Until Discontinued Given 01/09/2023 [...]
--- OUTSIDE RECORDS SUMMARY | 2023-06-23 11:01 | XMS_ITS | Encounter Summary ---
Author Name Unknown Organization [facility] Address [address] [place] [address] Phone Care Team Providers Care Payroll Processor Name Role Phone Unavailable Primary Care Provider Unavailabl e Reason for Referral * Consult/Test/Treat (Routine) - New Request Specialty Diagnoses / Procedures Referred By Devon taylor Referred To Contact Allergy / ALLERGY Diagnoses Anaphylaxis, initial encounter Trevor Etienne MD [address] [place] [address] Referral ID Status Reason Start Date Expiration Date V isits Requested Visits Authorized [id number] New Request 01/05/2023 01/06/2024 1 1 Reason for Visit * Reason Comments Allergic Reaction * Auth/Cert (Routine) Specialty Diagnoses / Procedures Referred By Contfloresita taylor Referred To Contact MEDICINE Diagnoses Hypokalemia Rash Petechiae Polyarthralgia Near syncope Anaphylaxis, initial encounter Leeann Bain MD [address] [place] [address] Medicine [address] [place] [address] R5.[address] [place] [address] Referral ID Status Reason Start Date Expiration Date Visits Re quested Visits Authorized [id number] 1 1 Encounter Details Date Type Department Care Team Description 01/04/2023 12:10 PM CDT - 01/05/2023 3:45 PM CDT Emergency [facility] Rapid Treatment Unit 1 [address] [facility] [address]5.[address] [place], [place] [phone] Jon Jeter MD [address] [facility] [address] [place] [address] Jon Francois MD [address] [facility] [address] [place], [place] [address] Ana Salazar DO [address] [facility] [address] [place] [address] Trevor Etienne MD [address] [place] [address] Anaphylaxis, initial encounter Discharge Disposition: [...] Care Primary Care Physician: Kika ATKINS - [facility] BRIEF SUMMARY OF HOSPITALIZATION: This is a [...] breathing on prompting ER visit. At the [place] [facility] she was given epinephrine, steroids, Benadryl, famotidine and was transferred to [facility]. She was improving by the time she [...] problems Please schedule an appointment outside of [facility]: Order Comments: Please contact your (non-[facility]) your Primary Care Provider to schedule an [...] Your Medications These medications were sent to [facility] Discharge Pharmacy - [place] [id number] Hours: 12/12 cepacol 15-3.6 mg mouth/throat lozenge [...] evidence of decompensation. Will need to clarify [employer] medications in am, does take wellbutrin and [...] in real time. Please contact me via makeena staff message if you note any errors [...] of my shift. Their care was signedout [id number] with the oncoming provider. 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 Given epi, solumedrol, famotidine. Still with facial swelling so admitting for observation. Jon Francois MD, 01/04/2023 4:33 PM Staff Physician, [facility] Medicine Note is for communication only, not billing * ED Faculty Note - Jno Jeter MD - 01/04/2023 1:11 PM CDT [...] Routine 01/05/2023 5:42 AM CDT PF NEED SOFTBALL WINDER REVIEW Routine 01/04/2023 2:26 PM CDT documented in this encounter Results * (ABNORMAL) CBC WITH PLATELET (01/05/2023 5:42 AM CDT) WBC 14.99(H) 4.00 - 10.00 k/cmm [facility] RBC 4.85 3.90 - 5.20 m/cmm [facility] Hgb 13.4 11.5 - 15.7 g/dL [facility] Hematocrit 40.9 34.0 - 45.0 % [facility] MCV 84.3 80.0 - 100.0 fL [facility] MCH 27.6 25.0 - 32.0 pg [facility] MCHC 32.8 31.0 - 36.0 g/dL [facility] RDW 13.5 11.5 - 14.5 % [facility] Plt 365 150 - 400 k/cmm [facility] MPV 8.9 6.5 - 12.5 fL [facility] Blood 01/05/2023 5:42 AM CDT 01/05/2023 6:25 AM CDT Jon Francois MD LABORATORY Performing Organization Address [facility] [[email or web address]] Co de Phone Number [facility] [address] [address] * (ABNORMAL) PANEL BASIC METABOLIC (BMP) (01/05/2023 5:42 AM CDT) CO2 27 22 - 30 mEq/L [facility] Glucose 85 70 - 100 mg/dL [facility] BUN 12 6 - 20 mg/dL [facility] Creatinine 1.05(H) 0.50 - 1.00 mg/dL [facility] Calcium 9.3 8.6 - 10.0 mg/dL [facility] eGFR (2020 CKD-EPI) 68 >=60 ml/min/1.7 3m2 [facility] Comment: The estimated glomerular filtration rate (eGFR) was calculated using the CKD-EPI 2020 creatinine equation, which does not include race as a factor. This equation is validated in individuals 18 years of age and older, and eGFR is normalized to a body surface area of 1.73m^2. Sodium 139 135 - 148 mEq/L [facility] Potassium 4.0 3.5 - 5.3 mEq/L [facility] Chloride 102 92 - 108 mEq/L [facility] AnGap 10 8 - 16 mEq/L [facility] Blood 01/05/2023 5:42 AM CDT 01/05/2023 6:24 AM CDT Jon Francois MD LABORATORY Performing Organization Address [facility] [[email or web address]] Co de Phone Number [facility] [address] [address] * PF NEED SOFTBALL WINDER REVIEW (01/04/2023 2:26 PM CDT) Narrative Jon [...] 01/04/2023 8:51 PM CDT 300 mg heparin 90351 UNITS/mL injection 7,500 UNITS 7,500 UNITS, Subcutaneous, [...] at 1445 1530 (Given - Provider: Mynor Nweman RN) cetirizine (ZyrTEC) tablet 10 mg (COMPLETED) [...] at 0600 0613 (Given - Provid er: aPulette Bell RN) EPINEPHrine (ANAPHYLAXIS) 1 mg/mL injection [...] (Given - Provider: Karl Das RN) heparin 54221 UNITS/mL injection 7,500 UNITS 7,500 UNITS, Subcutaneous, [...]
== END 2023-06-23 10:42 | disposition home or self-care (01) ==
PROVIDERS: PCP Physician Assistant Medical; Visit Provider Obstetrics & Gynecology
DX: N83.292 Other ovarian cyst, left side (principal); K59.00 Constipation, unspecified
CPT/HCPCS: 82378; 84443; 86301; 86304

== ENCOUNTER 2023-08-03 08:39 | Day surgery (SDC) | payer MEDICARE, OTHER, SELFPAY ==
[2023-08-03] VITALS (12 sets, daily range): BP systolic 122–145; BP diastolic 67–86; PULSE 76–115; RESP 14–18; TEMP 36.1–36.4; O2SAT 79–100; BMI 37.8
[2023-08-03 09:11] LABS: Ur HCG Qualitative* Negative (Negative)
[2023-08-03] MEDS: SODIUM CHLORIDE 0.9 % (FLUSH) 10 ML SYRINGE IVF (09:20)
[2023-08-03] MEDS: LACTATED RINGERS 1000 ML 1,000 ML 100 ML IV (09:20)
[2023-08-03 09:47] LABS: Basophils Absolute Auto 0.05 K/uL (0.00-0.30); Basophils Percent Auto 0.5 % (0.0-3.0); Eosinophils Percent Auto 1.9 % (0.0-7.0); Hematocrit 40.4 % (33.0-51.0); Immature Granulocytes Abs Auto 0.02 K/uL (0.00-0.30); Immature Granulocytes Pct Auto 0.2 %; Lymphocytes Percent Auto 17.8 % (20-44); Mean Corpuscular HGB Conc 32 gm/dL (32-36); Mean Corpuscular Hemoglobin 27 pg (26-34); Mean Corpuscular Volume 82 fL (80-100); Monocytes Percent Auto 5.3 % (0.0-11.0); Neutrophils Percent Auto 74.3 % (42.0-72.0); Platelet Count* 398 K/uL (140-440); RDW Coefficient of Variation % 14.3 % (11.5-15.5); White Blood Count* 10.66 K/uL (4.50-11.00)
[2023-08-03 09:50] LABS: Slide Review Reflex No
[2023-08-03] MEDS: BUPIVACAINE 0.5 %/EPI 1:200K 9 ML INJECTION (11:28)
--- NOTE | 2023-08-03 11:53 | W.ANESCHARGE ---
Anesthesia Charges Start Date/Time Anesthesia Start Date: 08/03/23 Anesthesia Start Time: 10:13 Stop Date/Time Anesthesia Stop Date: 08/03/23 Anesthesia Stop Time: 11:50
--- NOTE | 2023-08-03 12:15 | W.ANESCHARGE ---
Anesthesia Charges Start Date/Time Anesthesia Start Date: 08/03/23 Anesthesia Start Time: 10:13 Stop Date/Time Anesthesia Stop Date: 08/03/23 Anesthesia Stop Time: 11:50
--- NOTE | 2023-08-03 12:30 | P.PCNOB_ITS ---
Procedure Pre-op/Post-op diagnoses: Pre-Op/Post-Op Diagnoses Operation Date: 08/03/23 10:45 <No data on this case meets the specified criteria> Procedure: Procedures Operation Date: 08/03/23 10:45 Actual Procedure Side Surgeon p Diagnostic Laparoscopic Left Ovarian Cystectomy Left Sadnra Pardo MD Correctional Casework Specialist: Sania Moreau Estimated blood loss (mL): 15 Anesthesia type: General Complications: none Specimen: other (Left ovarian dermoid cyst ) Findings: EUA: Mons normal, clitoris normal, urethral meatus normal. Labia minora and majora normal in appearance bilaterally. Perineum and anus normal appearance. Vaginal introitus normal appearance. Bimanual exam reveals uterus to be soft, nontender, mobile, anteverted, of normal size and texture. No palpable adnexal masses or tenderness. On laparoscopy: Liver normal appearing. The uterus, bilateral fallopian tubes, and right ovary were normal. Left ovary with 5 cm dermoid cyst. One staple from previous laparoscopic cholecystectomy visualized on colon epiploica. Staple left in place as it was not easily removable. Disposition: PACU Narrative: Jennifer was taken to the operating room where general anesthetic was found to be adequate. She was placed in the dorsal lithotomy position and an exam under anesthesia was performed with findings stated above. She was then prepped and draped in a normal sterile manner.? Og catheter placed to empty her bladder. Sponge stick was placed vaginally to act as uterine manipulator. Attention was then turned to performing the laparoscopic portion of the procedure. All incisions were injected with 0.25% Marcaine prior to incision. A vertical 5 mm infraumbilical incision was made with a scalpel and carried through to the underlying layer of fascia with a hemostat. The 5 mm Fios Kii trocar was assembled with laparoscope within, and insufflator attached.? While tenting up the abdomen manually, the trocar was passed through the anterior abdominal wall into the peritoneal cavity.? Trocar was removed.? Pneumoperitoneum was achieved.? Survey of abdomen and pelvis revealed the above-noted findings.Two left trocars were placed under direct visualization. One was placed 3-4 finger breaths medial to the ischial crests and (11 mm) a 2nd was placed hands breath medial and 3 cm superior to lower quadrant port (5mm). A diagnostic laparoscopy was then performed with findings stated above. Ligasure was used to used to dissect the left ovarian dermoid cyst off of the ovary. Left dermoid cyst was removed intact. An Endo-Catch bag was used to remove the dermoid cyst through the 11 port. Excellent hemostasis was established with electrocautery and Nuno. Fascial at the 15mm LLQ port was closed with 0-vicryl using Derrick-Herson suture closure system. The trocars were then removed under direct visualization. The CO2 gas was allowed to escape the infraumbilical port prior to its removal. The skin was reapproximated with 4-0 monocryl. Two other incisions were reapproximated using 4-0 Monocryl in a running subcuticular manner.? Exofin was applied at the port sites. The Og cath and uterine manipulator was removed. The patient tolerated this procedure well. Sponge, lap and instrument counts were correct x2 at the end of the procedure and the patient was taken to the recovery area in stable condition.
--- NOTE | 2023-08-03 12:30 | W.PM.H&PU ---
History & Physical Update History & Physical Update H&P Reviewed and patient assessed: No changes noted
== END 2023-08-03 13:50 | disposition home or self-care (01) ==
PROVIDERS: PCP Physician Assistant Medical; Visit Provider Obstetrics & Gynecology
PROC: (CPT 58662; principal; 2023-08-03 10:30)
DX: D27.1 Benign neoplasm of left ovary (principal)
CPT/HCPCS: 58662; 00840; 36415; 81025; 85025; 86850; 86900; 86901; 88307; J0330; J1100; J1170; J2250; J2405; J2704; J3010; J3490; J7120

== ENCOUNTER 2023-09-26 08:51 | Outpatient (RCR) | payer MEDICARE, OTHER, SELFPAY | END 2024-01-10 11:45 | disposition home or self-care (01) | PROVIDERS: PCP Physician Assistant Medical; Visit Provider Family Medicine | DX: M25.552 Pain in left hip (principal); M51.26 Other intervertebral disc displacement, lumbar region; M54.12 Radiculopathy, cervical region; M54.16 Radiculopathy, lumbar region; G89.29 Other chronic pain; G44.86 Cervicogenic headache; M54.2 Cervicalgia; Z74.09 Other reduced mobility; R29.898 Other symptoms and signs involving the musculoskeletal system; Z51.89 Encounter for other specified aftercare | CPT/HCPCS: 97110; 97162 ==

== ENCOUNTER 2024-01-04 07:16 | Outpatient (CLI) | payer MEDICARE, OTHER, SELFPAY ==
--- OUTSIDE RECORDS SUMMARY | 2024-01-05 04:38 | XMS_ITS | Clinical Summary ---
Author Organization [facility] Address [place], [place] [address] Care Team Providers Care Frame Operator Name Role Phone Kika Johnston Primary Care Provider Allergies Active Allergy Reactions Criticality Noted Date Comments Cephalexin Rash Medium 08/23/2006 Penicillins Rash Medium 08/23/2006 Shellfish Containing Products Anaphylaxis High 12/18 Medications Medication Sig Dispensed Refills Start Date End Date Status EPINEPHrine (EPIPEN) 0.3 mg/0.3 mL auto-injector Inject 0.3 mg intramuscular each time if needed for Allergic Reaction. 01/05/2023 Active lidocaine 5 % topical patchIndications:Ot her chronic pain,Hip pain, right APPLY 1 PATCH ON DRY, CLEAN, HAIRLESS SKIN ONCE DAILY. 30 Patch 06/16/2023 Active polyethylene glycoL (MIRALAX) 17 gram/scoop powderIndications:C hronic constipation Mix 1 scoop (17 g) in liquid then take by mouth once daily. 850 g 5 06/16/2023 Active citalopram (CELEXA) 20 mg tablet 06/15/2023 Active valACYclovir (VALTREX) 1 gram tabletIndications:G enital herpes simplex, unspecified site Take 1 Tablet (1 g) by mouth once daily. Take 1 gram daily, increase to 1 gram twice daily for outbreaks. 90 Tablet 1 06/20/2023 Active cholecalciferol (VITAMIN D3) 50,000 unit capsuleIndications: Vitamin D deficiency TAKE 1 CAPSULE BY MOUTH ONCE EVERY WEEK 12 Capsule 1 06/28/2023 Active gabapentin (NEURONTIN) 100 mg capsuleIndications: Upper back pain,Muscle spasm,Chronic bilateral low back pain, unspecified whether sciatica present Take 2 Capsules (200 mg) by mouth four times daily. 240 Capsule 5 07/10/2023 Active diphenhydrAMINE (BENADRYL) 25 mg capsuleIndications: Seasonal allergies Take 1 Capsule (25 mg) by mouth every 6 hours if needed (itching, allergies). 160 Capsule 3 07/17/2023 Active omeprazole (PRILOSEC) 20 mg Delayed-Release capsuleIndications: Gastroesophageal reflux disease, unspecified whether esophagitis present TAKE 1 CAPSULE BY MOUTH DAILY 90 Capsule 1 08/01/2023 Active loratadine (CLARITIN) 10 mg tabletIndications:A llergic rhinitis due to pollen, unspecified seasonality Take 1 Tablet (10 mg) by mouth once daily. 90 Tablet 3 08/08/2023 Active ferrous sulfate, 65 mg elemental, (FeroSuL) tabletIndications:I wilmer deficiency anemia, unspecified iron deficiency anemia type Take 1 Tablet (325 mg) by mouth once daily with a meal. 90 Tablet 2 09/05/2023 Active Senexon-S 8.6-50 mg tabletIndications:C onstipation, unspecified constipation type TAKE 1 TO 2 TABLETS BY MOUTH TWICE A DAY 60 Tablet 10/17/2023 Active ondansetron (ZOFRAN ODT) 4 mg disintegrating tabletIndications:N ausea Place 1 Tablet (4 mg) on the tongue every 8 hours if needed for Nausea/Vomiting. 30 Tablet 10/23/2023 Active terbinafine (LAMISIL) 1 % creamIndications:Ti july Apply topically to affected area(s) two times daily. 28.4 g 1 11/09/2023 Active buPROPion (WELLBUTRIN XL) 150 mg Extended-Release tablet 12/05/2023 Active hydrOXYzine pamoate (VISTARIL) 50 mg capsule 12/07/2023 Active mirtazapine (REMERON) 15 mg tablet Take 15 mg by mouth at bedtime. 11/24/2023 Active cyclobenzaprine (FLEXERIL) 10 mg tabletIndications:N miko pain, chronic Take 1 Tablet (10 mg) by mouth 3 times daily if needed for Muscle Spasm. 90 Tablet 1 12/28/2023 Active LORazepam (Ativan) 0.5 mg tabIndications:Anxi ety Take 1 Tablet (0.5 mg) by mouth every 6 hours if needed for Anxiety. 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 08/23/2006 04/01/2008 Encounters Date Type Department Care Team Description 01/04/2024 5:30 PM CDT Telemedicine [facility] [address] [place] [address] Oscar Cheatham PA Anxiety 01/04/2024 Orders Only [facility] Scanner 1 scan: (1-Ord) TONIO, CERVICAL SPINE WO CON, 01/04/2024 01/04/2024 Travel 01/04/2024 Orders Only [facility] Scanner 1 scan: (1-Ord) TONIO, HEAD, 01/04/2024 01/03/2024 Refill [facility] [address] [place] [address] Kika Johnston PA Refill Request (Omeprazole) 01/02/2024 Refill [facility] [address] [place] [address] Kika Johnston PA Refill Request (Senexon-s) 01/02/[address] [phone] Rosibel Shen MD Medication Management (cyclobenzaprine (FLEXERIL) 10 mg tablet) 01/01/2024 4:10 PM CDT Telemedicine [facility] [address] [place] [address] Mee Lamar PA Referral (Vascular); Telehealth (No vitals) 01/01/2024 Orders Only [facility] Scanner 1 scan: (1-Ord) [facility], INTERLAMINAR CERVICAL EPIDUROGRAPHY and THERAPEUTIC INJ, C7-T1, W/ MODERATE CONSCIOUS SEDATION, 01/01/2024 01/01/2024 Travel 01/01/[address] [facility] [address] [place] [phone] Magaly Pittman MD 12/28/2023 2:30 PM CDT Telemedicine [facility] [address] [place] [phone] Rosibel Shen MD 12/26/2023 Nurse/Clinic Staff Only [facility] [address] [facility] [address] Kika Johnston PA Weight (Walk in weight check) 12/24/2023 Travel 12/22/2023 Telephone [facility] [address] [facility] [place] [address] Kika Johnston PA Questions (Speak to a nurse ) 12/18/2023 Medical Messaging [facility] [address] [place] [address] Hector Baez MD Neck 12/13/2023 3:00 PM CDT Orders Only [facility] [address] [facility] [place] [address] Lab, [facility] 12/12/2023 Travel 12/11/2023 3:20 PM CDT Telemedicine [facility] [address] [facility] [place] [address] Mee Lamar PA Fatigue 12/11/2023 Travel 12/07/2023 1:40 PM CDT Telemedicine [facility] [address] [facility] [place] [address] Hector Baez MD Musculoskeletal Problem (Follow up neck and back pain) 12/06/2023 Travel 11/09/2023 E-Visit [facility] [address] [place] [address] [facility] 10/31/2023 7:50 AM CDT Telemedicine [facility] [address] [facility] [place] [address] Kika Johnston PA Telehealth (MRI results); Medication Management (Changing muscle relaxer ) 10/31/2023 Orders Only [facility] [address] [phone] Rosibel Shen MD 1 scan: (1-Ord) [facility], CERVICAL SPINE, 10/26/2023 10/27/2023 Telephone [facility] [address] [facility] [place] [address] Kiak Johnston PA Prior Authorization (Senexon-S 8.6-50 mg tablet (DENIED/EXCLUDED)) 10/26/2023 Travel 10/20/2023 Telephone [facility] [address] [phone] Rosibel Shen MD Referral ([facility] fax) 10/20/2023 Telephone [facility] [address] [phone] Rosibel Shen MD fax referral to [facility] 10/19/2023 2:00 PM CDT Telemedicine [facility] [address] [phone] Rosibel Shen MD 10/18/2023 Travel 10/17/2023 Orders Only [facility] [address] [facility] [place] [address] Kika Johnston PA <No scans attached> 10/13/2023 Refill [facility] [address] [facility] [place] [address] Kika Johnston PA Refill Request (Senexon-s, Cyclobenzaprine) [...] Sex Assigned at Female 05/21/2021 8:17 AM COORDINATOR OF GENETIC SERVICES Gender Identity Female 05/21/2021 8:17 AM COORDINATOR OF GENETIC SERVICES Sexual Orientation Straight 02/13/2021 3: 53 AM [...] ST Respiratory Rate 16 05/17/2023 7:50 AM COORDINATOR OF GENETIC SERVICES Oxygen Saturation 98% 07/28/2023 10:27 AM COORDINATOR OF GENETIC SERVICES Inhaled Oxygen Concentration - - Weight 121.6 kg (268 lb) 12/26/2023 12:28 PM CDT Height 180.3 cm (5' 11) 12/26/2023 12:28 PM CDT Body Mass Index 37.38 12/26/2023 12:28 PM CDT Plan of Treatment Upcoming Encounters Date Type Department Care Team (Late st Contact Info) Description 01/16/2024 7:50 AM CDT Telemedicine [facility] [address] [place] [address] Kika Johnston PA [address] [place] [address] 02/19/2024 11:30 AM CDT Office Visit [facility] [address] [place] [phone] Magaly Pittman MD [address] [place], [place] [phone] 03/08/2024 11:00 AM CDT Telemedicine [facility] [address] [place] [address] Hector Baez MD [address] [place] [address] 03/20/2024 10:20 AM CDT Office Visit [facility] [address] [place], [place] [address] Erin Pritchett PA [address] [place] [address] Health Maintenance Due Date Last Done Comments Pneumococcal series for age 6-64 (1 of 2 - PCV) 1986 Pap test for age 21-65 11/02/2019 7, 08/11/2014 (Completed outside of [facility]), 07/21/2009, Additional history exists COVID-19 vaccine series (2022- season) 2023 02/21/2022, 12/07/2021, 12/03/2020, Additional history exists Influenza for age 9-49 01/21/2024 3, 02/21/2022, 01/24/2019, Additional history exists Depression screening [...] Procedure Name Priority Date/Time Associated Diagnosis Comments SCAN-MRI INTERPRETATION 01/04/2024 12:00 AM CDT SCAN-MRI INTERPRETATION 01/04/2024 12:00 AM CDT SCAN-OPERATIVE/PROCEDU RE REPORT 01/01/2024 12:00 AM CDT FERRITIN Routine [...] 10/26/2023 12:00 AM CDT Neck pain, acute CHIEF SECURITY AND SAFETY OFFICER THIN PREP PAP SCREEN IMAGED Routine 11/01/2016 2:40 PM CDT Screening for malignant neoplasm of cervix ANTI HIV 1/2 Routine 11/01/2016 2:38 PM CDT Screen for STD (sexually transmitted disease) ANTI HCV Routine 11/01/2016 2:38 PM CDT Screen for STD (sexually transmitted disease) from Last 3 Months or Most Recently Relevant to Health Maintenance Results * SCAN-MRI INTERPRETATION (01/04/2024 12:00 AM CDT) Only the most recent of2 resultswithin the time period is included. Anatomical Region Laterality Modality Other Scanner OTHER * SCAN-OPERATIVE/PROCEDURE REPORT (01/01/2024 12:00 AM CDT) Scanner OTHER * TSH WITH REFLEX (12/13/2023 1:30 PM CDT) TSH 1.60 0.27 - 4.20 uIU/mL 12/14/2023 5:44 PM CDT [facility] Blood BLOOD SPECIMEN / Unknown Venipuncture / Unknown 12/13/2023 1:30 PM CDT 12/13/2023 1:30 PM CDT Narrative [facility] - 12/14/2023 5:44 PM CDT In Adults, TSH values between 5.00 and 10.00 uIU/ml do not necessarily indicate the presence of Hypothyroidism. Correlation with clinical findings such as presence of goiter and/or Thyroperoxidase (TPO) Antibody may be helpful. For more information please refer to [place] 2004; 291: 228-238. Mee ATKINS CHEMISTRY Performing Organization Address [facility]/ZIP Co de Phone Number [facility] [address] [address], * (ABNORMAL) VITAMIN D 25 (DEFICIENCY) (12/13/2023 1:30 PM CDT) VITAMIN D TOTAL 88.3(H) 20.0 - 80.0 ng/mL 12/14/2023 1:[address] [facility] Blood BLOOD SPECIMEN / Unknown Venipuncture / Unknown 12/13/2023 1:30 PM CDT 12/13/2023 1:30 PM CDT Narrative [facility] - 12/14/2023 1:51 PM CDT ? Vitamin D Status Deficiency: ? <20 ng/mL Insufficiency: ?20-29 ng/mL Sufficiency: ?30-80 ng/mL Possible Toxicity: ??>80 ng/mL Based on [place] of Medicine recommendations Biotin supplements may cause clinically significant interference for this test assay. ??If interference is suspected, it is strongly recommended that biotin is discontinued for at least one week prior to retesting. Mee ATKINS SEND OUTS Performing Organization Address [facility] Co de Phone Number [facility] [address] [address], * (ABNORMAL) CBC W PLT NO DIFF (12/13/2023 1:30 PM CDT) WHITE BLOOD COUNT 11.5(H) 4.5 - 11.0 thou/cu mm 12/13/2023 1:32 PM CDT [facility] RED BLOOD COUNT 5.02 4.00 - 5.20 mil/cu mm 12/13/2023 1:32 PM CDT [facility] HEMOGLOBIN 13.6 12.0 - 16.0 g/dL 12/13/2023 1:32 PM CDT [facility] HEMATOCRIT 40.6 33.0 - 51.0 % 12/13/2023 1:32 PM CDT [facility] MCV 81 80 - 100 fL 12/13/2023 1:32 PM CDT [facility] MCH 27.1 26.0 - 34.0 pg 12/13/2023 1:32 PM CDT [facility] MCHC 33.5 32.0 - 36.0 g/dL 12/13/2023 1:32 PM CDT [facility] RDW 15.2 11.5 - 15.5 % 12/13/2023 1:32 PM CDT [facility] PLATELET COUNT 411 140 - 440 thou/cu mm 12/13/2023 1:32 PM CDT [facility] MPV 8.8 6.5 - 11.0 fL 12/13/2023 1:32 PM CDT [facility] Blood BLOOD SPECIMEN / Unknown Venipuncture / Unknown 12/13/2023 1:30 PM CDT 12/13/2023 1:30 PM CDT Mee ATKINS HEMATOLOGY Performing Organization Address City/State/[facility] Co de Phone Number [facility] [address] [place] [address], * FERRITIN (12/13/2023 1:30 PM CDT) [facility] FERRITIN 90.7 15.0 - 150.0 ng/mL 12/14/2023 1:50 PM CDT [facility] Blood BLOOD SPECIMEN / Unknown Venipuncture / Unknown 12/13/2023 1:30 PM CDT 12/13/2023 1:30 PM CDT Mee ATKINS CHEMISTRY [facility] [address] [place] [address], * (ABNORMAL) BASIC METABOLIC PANEL (12/13/2023 1:30 PM CDT) SODIUM 138 136 - 145 mmol/L 12/14/2023 1:[address] [facility] POTASSIUM 4.2 3.5 - 5.1 mmol/L 12/14/2023 1:[address] [facility] CHLORIDE 103 98 - 107 mmol/L 12/14/2023 1:[address] [facility] CO2,TOTAL 20(L) 22 - 29 mmol/L 12/14/2023 1:[address] [facility] ANION GAP 15 5 - 18 12/14/2023 1:[address] [facility] GLUCOSE 108(H) 70 - 99 mg/dL 12/14/2023 1:[address] [facility] CALCIUM 9.4 8.6 - 10.0 mg/dL 12/14/2023 1:[address] [facility] BUN 11 6 - 20 mg/dL 12/14/2023 1:[address] [facility] CREATININE 0.65 0.50 - 0.90 mg/dL 12/14/2023 1:[address] [facility] BUN/CREAT RATIO 17 10 - 20 1:[address] [facility] eGFR >90 >90 mL/min/1.7 3m2 12/14/2023 1:[address] [facility] Comment:As of 2021, eG [...] CDT Mee ATKINS CHEMISTRY Performing Organization Address [facility]/State/ZIP Co de Phone Number [facility] [address] [place] [address], * MR SPINE CERVICAL WO (10/26/2023 12:00 AM CDT) Anatomical Region Laterality Modality Spine, CERVICAL SPINE Magnetic R esonance Rosibel Shen MD MR * CHIEF SECURITY AND SAFETY OFFICER THIN PREP PAP SCREEN IMAGED (11/01/2016 2:40 PM CDT) Case Report Gynecologic Cytology Report ? Case: [id number] ? Authorizing Provider: ??Jodee Velazquez PA ?Collected: ? 11/01/2016 1440 ? Ordering Location: ? [facility] ?? Received: ?11/01/2016 1440 ? Clinic ? First Screen: ?Daniela Whelan ? Specimen: ?CHIEF SECURITY AND SAFETY OFFICER ThinPrep Vial Screening, Cervical ? 11/08/2016 4:40 PM CDT [facility] INTERPRETATION/ RESULT NEGATIVE FOR INTRAEPITHELIAL LESION OR MALIGNANCY (NIL) (none) 11/08/2016 4:40 PM CDT [facility] IMEN ADEQUACY Satisfactory for evaluation No endocervical component seen 11/08/2016 4:40 PM CDT [facility] HPV REQUEST HPV if ASCUS 11/08/2016 4:40 PM CDT [facility] Date of LMP 10/18/16 11/08/2016 4:40 PM CDT [facility] Last Pap Date May 2014 11/08/2016 4:40 PM CDT [facility] Last Pap Result NIL 7 4:40 PM CDT [facility] Abnormal Pap or [place] Bx in last 5 years No 11/08/2016 4:40 PM CDT [facility] Menstrual Status Regular Periods 11/08/2016 4:40 PM CDT [facility] [place] Bx Done Today No 11/08/2016 4:40 PM CDT [facility] Additional Information None given 11/08/2016 4:40 PM CDT [facility] Automated Review Successful 11/08/2016 4:40 PM CDT [facility] Comment:Specimen processed s uccessfully by automated chainstitch elastic attacher device, ThinPrep Imaging System, [employer] Note The pap test is a screening technique, not a diagnostic procedure. ??It is used primarily to screen for squamous cancers and precursor lesions. ??Published studies have shown that it is subject to both false negative and false positive results. ??The pap test should not be used as the sole means to diagnose or exclude pre-malignant and malignant lesions. Interpreted at [facility] ([facility], [facility], [facility], [facility], [facility], [facility], [facility]) 11/08/2016 4:40 PM CDT [facility] Other (Cervical) 11/01/2016 2:40 PM CDT 11/01/2016 2:40 PM CDT Jodee ATKINS PATHOLOGY/CYTOLOGY Performing Organization Address City/[facility]/ZIP Co de Phone Number [facility] [address] [place] [address], [place] * ANTI HCV (11/01/2016 2:38 PM CDT) HEPATITIS C ANTIBODY Non-Reacti ve Non-Reacti ve 11/01/2016 8:[address] [facility] Blood BLOOD SPECIMEN / Unknown Venipuncture / Unknown 11/01/2016 2:38 PM CDT 11/01/2016 2:38 PM CDT Narrative [facility] - 11/01/2016 8:25 PM CDT Antibodies to HCV not detected; does not exclude the possibility of exposure to HCV. Jodee ATKINS SEND OUTS Performing Organization Address City/[facility]/ZIP Co de Phone Number [facility] [address] [place] [address], [place] * ANTI HIV 1/2 (11/01/2016 2:38 PM CDT) HIV-1/HIV-2 ANTIBODY Non-Reacti ve Non-Reacti ve 11/01/2016 8:[address] [facility] Blood BLOOD SPECIMEN / Unknown Venipuncture / Unknown 11/01/2016 2:38 PM CDT 11/01/2016 2:38 PM CDT Narrative [facility] - 11/01/2016 8:26 PM CDT HIV-1 p24 and HIV-1/HIV-2 Ab not detected Jodee ATKINS SEND OUTS [facility] [address] [place] [address], from Last 3 Months or Most Recently [...] Preferences, Provider to review later Care Teams Frame Operator Relationship Specialty Start Date End Date Kika Johnston PA [address] [place] [address] PCP - General Physician Shuttle Operator 02/11/21
--- OUTSIDE RECORDS SUMMARY | 2024-01-05 04:38 | XMS_ITS | Clinical Summary ---
Author Organization [facility] Address [address] [place] [address] Care Team Providers Care Catalyst Concentration Operator Name Role Phone Kika Johnston Primary [...] 08/05/2005, 08/05/2005, Additional history exists Care Teams Catalyst Concentration Operator Relationship Specialty Start Date End Date Kika Johnston PA [address] [place] [address] PCP - General 01/06/23
--- OUTSIDE RECORDS SUMMARY | 2024-01-05 04:38 | XMS_ITS | Clinical Summary ---
Author Organization [facility] Address [address] [place] [address] Phone Care Team Providers Care Fire Claims Adjuster Name Role Phone Unavailable Primary Care Provider Unavailabl e Source Comments Alleantia is fully rolled out on [employer]. Last update 10/24/08.[facility] Allergies Active Allergy Reactions Criticality Noted Date [...] hours as needed. Active CHOLEcalciferol (VITAMIN D3) 43075 UNITS oral capsule Take 1 capsule (50,000 [...] 10:18 PM CDT) HIV Antigen-Antibody Nonreactive Nonreactive [facility] Comment:Performance characte ristics have not been established with this test on patients less than 2 years of age. Blood 01/07/2023 10:1 8 PM CDT 01/07/2023 10:46 PM CDT Sudhakar Koenig MD LABORATORY [facility] [address] [address] from Last 3 Months or Most Recently Relevant to Health Maintenance Guarantor Name Account Type Relation to Patient Date of Phone Billing Address Jennifer Tellez Personal/Family Self 1980 [address] [place] [id number] Advance Directives For more information, please contact: [phone] * Full Code (Latest Code Status on [...]
--- OUTSIDE RECORDS SUMMARY | 2024-01-05 04:38 | XMS_ITS | Referral Summary ---
Author Organization [facility] Address [address] [place] [address] Care Team Providers Care Container Filler Name Role Phone Kika Johnston Primary Care [...] of Treatment Not on file Care Teams Container Filler Relationship Specialty Start Date End Date Kika Johnston PA [address] [place] [address] PCP - General 01/06/23
--- OUTSIDE RECORDS SUMMARY | 2024-01-05 04:38 | XMS_ITS | Referral Summary ---
Author Organization [facility] Address [address] [place] [address] Phone Care Team Providers Care Rn Oncology Clinical Name Role Phone Unavailable Primary Care Provider Unavailabl e Source Comments Goby is fully rolled out on [employer]. Last update 10/24/08.[facility] Allergies Active Allergy Reactions Criticality Noted Date [...] hours as needed. Active CHOLEcalciferol (VITAMIN D3) 01280 UNITS oral capsule Take 1 capsule (50,000 [...] 10:18 PM CDT) HIV Antigen-Antibody Nonreactive Nonreactive [facility] Comment:Performance characte ristics have not been established with this test on patients less than 2 years of age. Blood 01/07/2023 10:1 8 PM CDT 01/07/2023 10:46 PM CDT Sudhakar Koenig MD LABORATORY [facility] [address] [place] [address] from Last 3 Months or Most Recently Relevant to Health Maintenance Guarantor Name Account Type Relation to Patient Date of Phone Billing Address Jennifer Tellez Personal/Family Self 1980 [address] [place] [address] Advance Directives For more information, please contact: [phone] * Full Code (Latest Code Status on [...]
== END 2024-01-04 07:17 | disposition home or self-care (01) ==
PROVIDERS: PCP Physician Assistant Medical; Visit Provider Family Medicine
DX: M62.838 Other muscle spasm (principal); M54.2 Cervicalgia
CPT/HCPCS: A0425; A0427

== ENCOUNTER 2024-01-04 07:45 | Emergency (ER) | payer MEDICARE, OTHER, SELFPAY ==
[2024-01-04 07:52] VITALS: BP 140/91; PULSE 96; RESP 18; TEMP 36.4; O2SAT 96; BMI 37.1
--- OUTSIDE RECORDS SUMMARY | 2024-01-04 08:28 | XMS_ITS | Referral Summary ---
Author Organization [facility] Address [address] [place] [address] Care Team Providers Care Custom Van Converter Name Role Phone Kika Johnston Primary Care Provider Allergies Active Allergy Reactions Criticality Noted Date Comments Cephalexin 01/10/2012 Penicillins 01/10/2012 Shellfish Containing Products Anaphylaxis High 12/18 Medications Medication Sig Dispensed Refills Start Date End Date Status IPRATROPIUM/ALBUTERO L SULFATE (IPRATROPIUM-ALBUTER OL INHL) by Inhalation route. Acti ve Social History Tobacco Use Types Packs/Day Years Used Date Smoking Tobacco: Every Day Cigarettes Alcohol Use Standard Drinks/Week Comments Yes 0 [...] of Treatment Not on file Care Teams Custom Van Converter Relationship Specialty Start Date End Date Kika Johnston PA [address] [place] [address] PCP - General 01/06/23
--- OUTSIDE RECORDS SUMMARY | 2024-01-04 08:28 | XMS_ITS | Clinical Summary ---
Author Organization [facility] Address [place], [place] [address] Care Team Providers Care Bank Accountant Name Role Phone Kika Johnston Primary Care Provider Allergies Active Allergy Reactions Criticality Noted Date Comments Cephalexin Rash Medium 08/23/2006 Penicillins Rash Medium 08/23/2006 Shellfish Containing Products Anaphylaxis High 12/18 Medications Medication Sig Dispensed Refills Start Date End Date Status EPINEPHrine (EPIPEN) 0.3 mg/0.3 mL auto-injector Inject 0.3 mg intramuscular each time if needed for Allergic Reaction. 3 Active lidocaine 5 % topical patchIndications:Ot her chronic pain,Hip pain, right APPLY 1 PATCH ON DRY, CLEAN, HAIRLESS SKIN ONCE DAILY. 30 Patch 4 Active polyethylene glycoL (MIRALAX) 17 gram/scoop powderIndications:C hronic constipation Mix 1 scoop (17 g) in liquid then take by mouth once daily. 850 g 5 4 Active citalopram (CELEXA) 20 mg tablet 4 Active valACYclovir (VALTREX) 1 gram tabletIndications:G enital herpes simplex, unspecified site Take 1 Tablet (1 g) by mouth once daily. Take 1 gram daily, increase to 1 gram twice daily for outbreaks. 90 Tablet 1 4 Active cholecalciferol (VITAMIN D3) 50,000 unit capsuleIndications: Vitamin D deficiency TAKE 1 CAPSULE BY MOUTH ONCE EVERY WEEK 12 Capsule 1 4 Active gabapentin (NEURONTIN) 100 mg capsuleIndications: Upper back pain,Muscle spasm,Chronic bilateral low back pain, unspecified whether sciatica present Take 2 Capsules (200 mg) by mouth four times daily. 240 Capsule 5 4 Active diphenhydrAMINE (BENADRYL) 25 mg capsuleIndications: Seasonal allergies Take 1 Capsule (25 mg) by mouth every 6 hours if needed (itching, allergies). 160 Capsule 3 4 Active omeprazole (PRILOSEC) 20 mg Delayed-Release capsuleIndications: Gastroesophageal reflux disease, unspecified whether esophagitis present TAKE 1 CAPSULE BY MOUTH DAILY 90 Capsule 1 4 Active loratadine (CLARITIN) 10 mg tabletIndications:A llergic rhinitis due to pollen, unspecified seasonality Take 1 Tablet (10 mg) by mouth once daily. 90 Tablet 3 4 Active ferrous sulfate, 65 mg elemental, (FeroSuL) tabletIndications:I wilmer deficiency anemia, unspecified iron deficiency anemia type Take 1 Tablet (325 mg) by mouth once daily with a meal. 90 Tablet 2 4 Active Senexon-S 8.6-50 mg tabletIndications:C onstipation, unspecified constipation type TAKE 1 TO 2 TABLETS BY MOUTH TWICE A DAY 60 Tablet 4 Active ondansetron (ZOFRAN ODT) 4 mg disintegrating tabletIndications:N ausea Place 1 Tablet (4 mg) on the tongue every 8 hours if needed for Nausea/Vomiting. 30 Tablet 4 Active terbinafine (LAMISIL) 1 % creamIndications:Ti july Apply topically to affected area(s) two times daily. 28.4 g 1 4 Active buPROPion (WELLBUTRIN XL) 150 mg Extended-Release tablet 4 Active hydrOXYzine pamoate (VISTARIL) 50 mg capsule 4 Active mirtazapine (REMERON) 15 mg tablet Take 15 mg by mouth at bedtime. 4 Active cyclobenzaprine (FLEXERIL) 10 mg tabletIndications:N miko pain, chronic Take 1 Tablet (10 mg) by mouth 3 times daily if needed for Muscle Spasm. 90 Tablet 1 4 Active cyclobenzaprine (FLEXERIL) 10 mg tabletIndications:M uscle spasm,Neck pain Take 1 Tablet (10 mg) by mouth 2 times daily if needed for Muscle Spasm. 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 Unspecified asthma(493.90) 08/23/2006 Resolved Problems Problem Noted Date Diagnosed Date Resolved Date Hoarding behavior 10/20/2016 07/12/2023 Major depressive disorder, r ecurrent episode, moderate 10/24/2014 08/12/2015 Severe major depression 07/29/201409/20 Anxiety state, unspecified 07/02/2008 0 02/04/2010 Allergy, unspecified not elsewhere classified 06/03/19 09 07/21/2009 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 08/23/2006 04/01/2008 Encounters Date Type Department Care Team Description 01/03/2024 Refill [facility] [address] [facility] [address] Kika Johnston PA Refill Request (Omeprazole) 01/02/2024 Refill [facility] [address] [place] [address] Kika Johnston PA Refill Request (Senexon-s) 01/02/2024 Telephone [facility] [place] [address] [facility] [place] [phone] Rosibel Shen MD Medication Management (cyclobenzaprine (FLEXERIL) 10 mg tablet) 01/01/2024 4:10 PM CDT Telemedicine [facility] [address] [place] [address] Mee Lamar PA Referral (Vascular); Telehealth (No vitals) 01/01/2024 Orders Only [facility] Scanner 1 scan: (1-Ord) [facility], INTERLAMINAR CERVICAL EPIDUROGRAPHY and THERAPEUTIC INJ, C7-T1, W/ MODERATE CONSCIOUS SEDATION, 01/01/2024 01/01/2024 Travel 01/01/2024 Telephone [facility] [address] [facility] [address] [place] [address] Magaly Pittman MD 12/28/2023 2:30 PM CDT Telemedicine [facility] [place] [address] [place] [phone] Rosibel Shen MD 12/26/2023 Nurse/Clinic Staff Only [facility] [address] [place] [address] Kika Johnston PA Weight (Walk in weight check) 12/24/2023 Travel 12/22/2023 Telephone [facility] [address] [place] [address] Kika Johnston PA Questions (Speak to a nurse ) 12/18/2023 Medical Messaging [facility] [address] [facility] [place] [address] Hector Baez MD Neck 12/13/2023 3:00 PM CDT Orders Only [facility] [address] [facility] [place] [address] Lab, [place] 12/12/2023 Travel 12/11/2023 3:20 PM CDT Telemedicine [facility] [address] [facility] [place] [address] Mee Lamar PA Fatigue 12/11/2023 Travel 12/07/2023 1:40 PM CDT Telemedicine [facility] [address] [facility] [place] [address] Hector Baez MD Musculoskeletal Problem (Follow up neck and back pain) 12/06/2023 Travel 11/09/2023 E-Visit [facility] [place] [address] [facility] [place] [address] Rosibel Shen MD Tinea vercicolor 10/31/2023 7:50 AM CDT Telemedicine [facility] [address] [facility] [address] Kika Johnston PA Telehealth (MRI results); Medication Management (Changing muscle relaxer ) 10/31/2023 Orders Only [place] [address] [place] [address] Rosibel Shen MD 1 scan: (1-Ord) [facility], CERVICAL SPINE, 10/26/2023 10/27/2023 Telephone [facility] [address] [facility] [place] [address] Kika Johnston PA Prior Authorization (Senexon-S 8.6-50 mg tablet (DENIED/EXCLUDED)) 10/26/2023 Travel 10/20/2023 Telephone [place] [address] [address] Rosibel Shen MD Referral ([facility] fax) 10/20/2023 Telephone [facility] [place] [address] [place] [phone] Rosibel Shen MD fax referral to [facility] 10/19/2023 2:00 PM CDT Telemedicine [facility] [place] [address] [phone] Rosibel Shen MD 10/18/2023 Travel 10/17/2023 Orders Only [facility] [address] [place] [address] Kika Johnston PA <No scans attached> 10/13/2023 Refill [facility] [address] [place] [address] Kika Johnston PA Refill Request (Senexon-s, Cyclobenzaprine) from Last 3 Months Immunizations Name Administration [...] Sex Assigned at Female 05/21/2021 8:17 AM [employer]OURNEY[employer] Gender Identity Female 05/21/2021 8:17 AM [employer] Sexual Orientation Straight 02/13/2021 3: 53 AM CDT Obstetrics History Para Term AB IAB SAB Ectopic Multiple Livin g Live Births 3 2 2 1 1 2 Date Outcome GA Total Labor Labor/2nd/3rd Weight Sex Type Anes PTL Yolande A1 A5 Name Clin Term Term SAB Last Filed Vital Signs Vital Sign Reading Time Taken Comments Blood Pressure 111/76 08/08/2023 9:17 AM CDT Pulse 88 08/08/2023 9:17 AM CDT Temperature 36.7 ??C (98.1 ??F) 07/28/2023 10:[address] Respiratory Rate 16 05/17/2023 7:50 AM [employer] Oxygen Saturation 98% 07/28/2023 10:27 AM [employer]OUR[employer] Inhaled Oxygen Concentration - - Weight 121.6 kg (268 lb) 12/26/2023 12:28 PM CDT Height 180.3 cm (5' 11) 12/26/2023 12:28 PM CDT Body Mass Index 37.38 12/26/2023 12:28 PM CDT Plan of Treatment Upcoming Encounters Date Type Department Care Team (Late st Contact Info) Description 01/16/2024 7:50 AM CDT Telemedicine [facility] [address] [place] [address] Kika Johnston PA [address] [place] [address] 03/08/2024 11:00 AM CDT Telemedicine [facility] [address] [place] [address] Hecotr Baez MD [address] [place] [address] 03/20/2024 10:20 AM CDT Office Visit [facility] [address] [place] [address] Erin Pritchett PA [address] [facility] [address] [place], [place] [id number] Health Maintenance Due Date Last Done Comments Pneumococcal series for age 6-64 (1 of 2 - PCV) 1986 Pap test for age 21-65 11/02/2019 7, 08/11/2014 (Completed outside of [facility]), 07/21/2009, Additional history exists COVID-19 vaccine series (2022-24 season) 2023 02/21/2022, 12/07/2021, 12/03/2020, Additional history exists Influenza for age 9-49 01/21/2024 , 02/21/2022, 01/24/2019, Additional history exists Depression screening for age 12+ 05/16/2024 05/16/2023, 05/13/2023, 05/12/2023, Additional history exists BMI (ht and wt on same day) for age 18+ 12/25/2024 12/26/2023, 07/12/2023, 04/05/2023, Additional history exists Tetanus booster 01/24/2029 01/24/2019, 03/23, 08/05/2005, Additional history exists Tdap Completed 04/15/2014, 08/05/2005 HIV for age 15-65 Completed 11/01/2016, , 09/23/2008 Hepatitis C screening for ag e 18-79 Completed 11/01/2016, 07/21/2009, 09/23/2008 Procedures Procedure Name Priority Date/Time Associated Diagnosis Comments SCAN-OPERATIVE/PROC EDURE REPORT 01/01/2024 12:00 AM CDT FERRITIN Routine 12/13/2023 1:30 PM CDT History of anemia TSH WITH REFLEX Routine 12/13/2023 1:30 PM CDT Fatigue, unspecified type VITAMIN D 25 (DEFICIENCY) Routine 12/13/2023 1:30 PM CDT Vitamin D deficiency BASIC METABOLIC PANEL STAT 12/13/2023 1:30 PM CDT Fatigue, unspecified type CBC W PLT NO DIFF Routine 12/13/2023 1:3 0 PM CDT Fatigue, unspecified type MR SPINE CERVICAL WO Routine 10/26/2023 12:00 AM CDT Neck pain, acute 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 THIN PREP PAP SCREEN IMAGED Routine 11/01/2016 2:40 PM CDT Screening for malignant neoplasm of cervix ANTI HIV 1/2 Routine 11/01/2016 2:38 PM CDT Screen for STD (sexually transmitted disease) ANTI HCV Routine 11/01/2016 2:38 PM CDT Screen for STD (sexually transmitted disease) from Last 3 Months or Most Recently Relevant to Health Maintenance Results * SCAN-OPERATIVE/PROCEDURE REPORT (01/01/2024 12:00 AM CDT) Scanner OTHER * TSH WITH REFLEX (12/13/2023 1:30 PM CDT) TSH 1.60 0.27 - 4.20 uIU/mL 12/14/2023 5:44 PM CDT [facility] Blood BLOOD SPECIMEN / Unknown Venipuncture / Unknown 12/13/2023 1:30 PM CDT 12/13/2023 1:30 PM CDT Narrative [facility] - 12/14/2023 5:44 PM CDT In Adults, TSH values between 5.00 and 10.00 uIU/ml do not necessarily indicate the presence of Hypothyroidism. Correlation with clinical findings such as presence of goiter and/or Thyroperoxidase (TPO) Antibody may be helpful. For more information please refer to [place] 2004; 291: 228-238. Mee ATKINS CHEMISTRY [facility] [address] [place] [address], * (ABNORMAL) VITAMIN D 25 (DEFICIENCY) (12/13/2023 1:30 PM CDT) VITAMIN D TOTAL 88.3(H) 20.0 - 80.0 ng/mL 12/14/2023 1:51 PM CDT [facility] Blood BLOOD SPECIMEN / Unknown Venipuncture / Unknown 12/13/2023 1:30 PM CDT 12/13/2023 1:30 PM CDT Narrative [facility] - 12/14/2023 1:51 PM CDT ? Vitamin D Status Deficiency: ? <20 ng/mL Insufficiency: ?20-29 ng/mL Sufficiency: ?30-80 ng/mL Possible Toxicity: ??>80 ng/mL Based on [place] [employer] recommendations Biotin supplements may cause clinically significant interference for this test assay. ??If interference is suspected, it is strongly recommended that biotin is discontinued for at least one week prior to retesting. Mee ATKINS SEND OUTS [facility] [address] [place] [address], * (ABNORMAL) CBC W PLT NO DIFF (12/13/2023 1:30 PM CDT) WHITE BLOOD COUNT 11.5(H) 4.5 - 11.0 thou/cu mm 12/13/2023 1:32 PM CDT [facility] RED BLOOD COUNT 5.02 4.00 - 5.20 mil/cu mm 12/13/2023 1:32 PM CDT [facility] HEMOGLOBIN 13.6 12.0 - 16.0 g/dL 12/13/2023 1:32 PM CDT [facility] HEMATOCRIT 40.6 33.0 - 51.0 % 12/13/2023 1:32 PM CDT [facility] MCV 81 80 - 100 fL 12/13/2023 1:32 PM CDT [facility] MCH 27.1 26.0 - 34.0 pg 12/13/2023 1:32 PM CDT [facility] MCHC 33.5 32.0 - 36.0 g/dL 12/13/2023 1:32 PM CDT [facility] RDW 15.2 11.5 - 15.5 % 12/13/2023 1:32 PM CDT [facility] PLATELET COUNT 411 140 - 440 thou/cu mm 12/13/2023 1:32 PM CDT [facility] MPV 8.8 6.5 - 11.0 fL 12/13/2023 1:32 PM CDT [facility] Blood BLOOD SPECIMEN / Unknown Venipuncture / Unknown 12/13/2023 1:30 PM CDT 12/13/2023 1:30 PM CDT Mee ATKINS HEMATOLOGY Performing Organization Address City/[facility]/ZIP Co de Phone Number [facility] [address] [place] [address], * FERRITIN (12/13/2023 1:30 PM CDT) FERRITIN 90.7 15.0 - 150.0 ng/mL 12/14/2023 1:50 PM CDT [facility] Blood BLOOD SPECIMEN / Unknown Venipuncture / Unknown 12/13/2023 1:30 PM CDT 12/13/2023 1:30 PM CDT Mee ATKINS CHEMISTRY Performing Organization Address City/[facility]/ZIP Co de Phone Number [facility] [address] [place] [address], * (ABNORMAL) BASIC METABOLIC PANEL (12/13/2023 1:30 PM CDT) SODIUM 138 136 - 145 mmol/L 12/14/2023 1:50 PM CDT [facility] POTASSIUM 4.2 3.5 - 5.1 mmol/L 12/14/2023 1:50 PM CDT [facility] CHLORIDE 103 98 - 107 mmol/L 12/14/2023 1:50 PM CDT [facility] CO2,TOTAL 20(L) 22 - 29 mmol/L 12/14/2023 1:50 PM CDT [facility] ANION GAP 15 5 - 18 12/14/2023 1:50 PM CDT [facility] GLUCOSE 108(H) 70 - 99 mg/dL 12/14/2023 1:50 PM CDT [facility] CALCIUM 9.4 8.6 - 10.0 mg/dL 12/14/2023 1:50 PM CDT [facility] BUN 11 6 - 20 mg/dL 12/14/2023 1:50 PM CDT [facility] CREATININE 0.65 0.50 - 0.90 mg/dL 12/14/2023 1:50 PM CDT [facility] BUN/CREAT RATIO 17 10 - 20 1:50 PM CDT [facility] eGFR >90 >90 mL/min/1.7 3m2 12/14/2023 1:50 PM CDT [facility] Comment:As of 2021, eG FR is calculated by the CKD-EPI creatinine equation without race adjustment. ??eGFR can be influenced by muscle mass, exercise, and diet. ??The reported eGFR is an estimation only and is only applicable if the renal function is stable. Blood BLOOD SPECIMEN / Unknown Venipuncture / Unknown 12/13/2023 1:30 PM CDT 12/13/2023 1:30 PM CDT Mee ATKINS [facility]MISTRY [facility] [address] [place] [address], * MR SPINE CERVICAL WO (10/26/2023 12:00 AM CDT) Anatomical Region Laterality Modality Spine, CERVICAL SPINE Magnetic R esonance Rosibel Shen MD MR * 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 THIN PREP PAP SCREEN IMAGED (11/01/2016 2:40 PM CDT) Case Report Gynecologic Cytology Report ? Case: [id number] ? Authorizing Provider: ??Jodee Velazquez PA ?Collected: ? 11/01/2016 1440 ? Ordering Location: ? [facility] ?? Received: ?11/01/2016 1440 ? Clinic ? First Screen: ?Daniela Whelan ? Specimen: ?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 ThinPrep Vial Screening, Cervical ? 11/08/2016 4:40 PM CDT [facility] INTERPRETATION/ RESULT NEGATIVE FOR INTRAEPITHELIAL LESION OR MALIGNANCY (NIL) (none) 11/08/2016 4:40 PM CDT [facility] [employer] [facility] IMEN ADEQUACY Satisfactory for evaluation No endocervical component seen 11/08/2016 4:40 PM CDT [facility]AL LABORAT[facility] HPV REQUEST HPV if ASCUS 11/08/2016 4:40 PM CDT [facility]AL LAB[facility] Date of LMP 10/18/16 11/08/2016 4:40 PM CDT [facility]AL LAB[facility] Last Pap Date May 2014 11/08/2016 4:40 PM CDT [facility] [employer] LABORATORY-C ENTRAL LABORATORY Last Pap Result NIL 06/20/201 7 4:40 PM CDT [facility] Abnormal Pap or Calcium Bx in last 5 years No 11/08/2016 4:40 PM CDT [facility] Menstrual Status Regular Periods 11/08/2016 4:40 PM CDT [facility] Calcium Bx Done Today No 11/08/2016 4:40 PM CDT [facility] Additional Information None given 11/08/2016 4:40 PM CDT [facility] Automated Review Successful 11/08/2016 4:40 PM CDT [facility] Comment:Specimen processed s uccessfully by automated rigging slinger device, L[employer]Prep Imaging System, [employer] Note The pap test is a screening technique, not a diagnostic procedure. ??It is used primarily to screen for squamous cancers and precursor lesions. ??Published studies have shown that it is subject to both false negative and false positive results. ??The pap test should not be used as the sole means to diagnose or exclude pre-malignant and malignant lesions. Interpreted at [facility] ([facility], [facility], [facility], [facility], [facility], [facility], [facility]) 11/08/2016 4:40 PM CDT [facility] Other (Cervical) 11/01/2016 2:40 PM CDT 11/01/2016 2:40 PM CDT Jodee ATKINS PATHOLOGY/CYTOLOGY [facility] [address] [place] [address], * ANTI HCV (11/01/2016 2:38 PM CDT) HEPATITIS C ANTIBODY Non-Reacti ve Non-Reacti ve 11/01/2016 8:25 PM CDT [facility] Blood BLOOD SPECIMEN / Unknown Venipuncture / Unknown 11/01/2016 2:38 PM CDT 11/01/2016 2:38 PM CDT Narrative [facility] - 11/01/2016 8:25 PM CDT Antibodies to HCV not detected; does not exclude the possibility of exposure to HCV. Jodee ATKINS SEND OUTS [facility] [address] [place] [address], [place] * ANTI HIV 1/2 (11/01/2016 2:38 PM CDT) HIV-1/HIV-2 ANTIBODY Non-Reacti ve Non-Reacti ve 11/01/2016 8:26 PM CDT [facility] Blood BLOOD SPECIMEN / Unknown Venipuncture / Unknown 11/01/2016 2:38 PM CDT 11/01/2016 2:38 PM CDT Narrative [facility] - 11/01/2016 8:26 PM CDT HIV-1 p24 and HIV-1/HIV-2 Ab not detected Jodee ATKINS SEND OUTS [facility] [address] [place] [address], [place] from Last 3 Months or Most Recently Relevant to Health Maintenance Advance Directives * Full Code (Latest Code Status on File) Date Activated Date Inactivated Comments 05/13/2023 9:46 AM 05/17/2023 12:39 PM Question Answer Comments Code Status Discussion: Unable to Assess Preferences, Provider to review later * Full Code Date Activated Date Inactivated Comments 04/12/2023 12:08 PM 04/12/2023 9:37 PM Question Answer Comments Code Status Discussion: Unable to Assess Preferences, Provider to review later Care Teams Bank Accountant Relationship Specialty Start Date End Date Kika Johnston PA [address] [place] [address] PCP - General Physician Administrative Associate 02/11/21
--- OUTSIDE RECORDS SUMMARY | 2024-01-04 08:28 | XMS_ITS | Clinical Summary ---
Author Organization [facility] Address [address] [place] [id number] Care Team Providers Care Senior Analytical Chemist Name Role Phone Kika Johnston Primary Care [...] 1980 Mammogram Screening 1980 Pap Smear 1980 Anxiety Screening (JOSUE-2) 1981 Depression Assessment (PHQ-2) 1981 Pneumococcal <65 (1 of 2 - PCV) 1986 COVID-19 Vaccine (1 - 2022-2 4 season) 2023 Influenza Vaccine (#1) 2024 02/18/2017, 2014 Adult Tetanus Booster 04/15/2024 04/15/2014 , 08/05/2005, 08/05/2005, Additional history exists Care Teams Senior Analytical Chemist Relationship Specialty Start Date End Date Kika Johnston PA [address] [place] [address] PCP - General 01/06/23
--- OUTSIDE RECORDS SUMMARY | 2024-01-04 08:28 | XMS_ITS | Clinical Summary ---
Author Organization [facility] Address [address] [place] [id number] Phone Care Team Providers Care Steel Construction Worker Name Role Phone Unavailable Primary Care Provider Unavailabl e Source Comments [employer] is fully rolled out on [employer]. Last update 10/24/08.[facility] Allergies Active Allergy Reactions Criticality Noted Date Comments Cephalexin Rash 01/04/2023 Penicillins Rash 01/04/2023 Medications * Be aware that medications may not be up to date as of this document. Always verify current medications with patient. Medication Sig Dispensed Refills Start Date End Date Status ARIPiprazole (ABILIFY) 10 mg oral tablet Take 1 tablet (10 mg) by mouth daily. 12/29/2022 Active buPROPion (WELLBUTRIN XL) 300 mg oral tablet 24 HR Take 1 tablet (300 mg) by mouth daily. 12/29/2022 Active busPIRone (BUSPAR) 10 mg oral tablet Take 1 tablet (10 mg) by mouth 3 times daily. 12/29/2022 Active citalopram (CELEXA) 20 mg oral tablet Take 1 tablet (20 mg) by mouth daily. 12/29/2022 Active lamoTRIgine (LAMICTAL) 25 mg oral TABS Take 2 tablets (50 mg) by mouth daily. 12/29/2022 Active hydrocortisone 2.5% externally ointment Apply [...] 4 times daily as needed (back pain). Active GABApentin (NEURONTIN) 300 mg oral capsule Take 1 capsule (300 mg) by mouth twice daily. Active mirtazapine (REMERON) 7.5 mg oral TABS Take 1 tablet (7.5 mg) by mouth daily. Active naltrexone (REVIA) 50 mg oral TABS Take 1 tablet (50 mg) by mouth daily. Active omeprazole (PRILOSEC) 20 mg oral capsule Take 1 capsule (20 mg) by mouth daily. Active valACYclovir (VALTREX) 500 mg oral TABS Take 1 tablet (500 mg) by mouth daily. Active hydrOXYzine pamoate (VISTARIL) 25 mg oral capsule Take 2 capsules (50 mg) by mouth 3 times daily as needed (ANXIETY). Active ferrous sulfate 325 mg oral TABS Take 1 tablet (325 mg) by mouth daily. Active acetaminophen (TYLENOL) 500 mg oral tablet Take 1 tablet (500 mg) by mouth every 6 hours as needed. Active CHOLEcalciferol (VITAMIN D3) 44382 UNITS oral capsule Take 1 capsule (50,000 UNITS) by mouth every week. Active naproxen (NAPROSYN) 500 mg oral TABS Take 1 tablet (500 mg) by mouth daily as needed. Active sennosides-docusa te sodium (STOOL SOFTENER/LAXATIVE ) 8.6-50 mg oral tablet Take 2 tablets by mouth twice daily. Active diphenhydrAMINE (BENADRYL) 50 mg oral capsuleIndication [...] Dental X-Ray: [facility] 1980 Depression Management 1980 Imm: Pneumonia Peds or At-Risk less than 65 years (1 of 2 - PCV) 1986 Periodontal Maintenance 1994 Medicare Annual Wellness 1998 PREVENTATIVE VISIT 1998 HEALTH MAINTENANCE PROTOCOL 1999 Imm: Zoster (1 of 2) 1999 Cervical Cancer Screening Age 30-65 2010 Imm: COVID-19 ( season) 2023 02/21/2022, 12/07/2021, 12/03/2020, Additional history exists Imm: Flu (#1) 01/21/2024 02/13/2023, 0 07/2021, 01/24/2019, Additional history exists Lipid Screening 01/26/2028 01/25/2023, 100 07/2021, 11/19/2021, Additional history exists Imm: DTaP/Tdap (7 - Td or Tdap) 01/24/2029 01/24/2019, 04/15/2014, 08/05/2005, Additional history exists Imm: HepA Aged Out 07/21/2009, 09/23/2008 No lo nger eligible based on patient's age to complete this topic HIV Screening Completed 01/07/2023 Imm: HPV Aged Out No longer eligi ble based on patient's age to complete this topic Imm: Hib Aged Out No longer eligi ble based on patient's age to complete this topic Imm: Meningitis Aged Out No longer el igible based on patient's age to complete this topic Procedures Procedure Name Priority Date/Time Associated Diagnosis Comments PANEL LIPID Routine 01/25/2023 3:24 PM CDT PC HIV-1 AG W/HIV-1 & HIV-2 AB Routine 01/07/2023 10:18 PM CDT from Last 3 Months or Most Recently Relevant to Health Maintenance Results * HIV COMBO (01/07/2023 10:18 PM CDT) HIV Antigen-Antibody Nonreactive Nonreactive [facility] Comment:Performance characte ristics have not been established with this test on patients less than 2 years of age. Blood 01/07/2023 10:1 8 PM CDT 01/07/2023 10:46 PM CDT Sudhakar Koenig MD LABORATORY [facility] [address] [address] from Last 3 Months or Most Recently Relevant to Health Maintenance Guarantor Name Account Type Relation to Patient Date of Phone Billing Address Jennifer Tellez Personal/Family Self 1980 [address] [place] [id number] Advance Directives For more information, please contact: [phone] * Full Code (Latest Code Status on File) Date Activated Date Inactivated Comments 01/07/2023 6:11 PM 01/09/2023 6:20 PM Question Answer Comments Does the Patient have prefer ences regarding life sustaining measures (these options only apply when the patient has a pulse): No Discussed Code Status With Whom? Not discussed * Full Code Date Activated Date Inactivated Comments 01/04/2023 7:45 PM 01/05/2023 6:51 PM Question Answer Comments Does the Patient have prefer ences regarding life sustaining measures (these options only apply when the patient has a pulse): No Discussed Code Status With Whom? Patient
--- OUTSIDE RECORDS SUMMARY | 2024-01-04 08:28 | XMS_ITS | Referral Summary ---
Author Organization [facility] Address [address] [place] [phone] Phone Care Team Providers Care Publishing Agent Name Role Phone Unavailable Primary Care Provider Unavailabl e Source Comments [employer] is fully rolled out on [employer]. Last update 10/24/08.[facility] Allergies Active Allergy Reactions Criticality Noted Date [...] hours as needed. Active CHOLEcalciferol (VITAMIN D3) 58860 UNITS oral capsule Take 1 capsule (50,000 [...] 01/07/2023 6:31 PM CDT Plan of Treatment Not on file Procedures Procedure Name Priority Date/Time Associated Diagnosis Comments PANEL LIPID Routine 01/25/2023 3:24 PM CDT PC HIV-1 AG W/HIV-1 & HIV-2 AB Routine 01/07/2023 10:18 PM CDT from Last 3 Months or Most Recently Relevant to Health Maintenance Results * HIV COMBO (01/07/2023 10:18 PM CDT) HIV Antigen-Antibody Nonreactive Nonreactive [facility] Comment:Performance characte ristics have not been established with this test on patients less than 2 years of age. Blood 01/07/2023 10:1 8 PM CDT 01/07/2023 10:46 PM CDT Sudhakar Koenig MD LABORATORY [facility] [address] [place] [address] from Last 3 Months or Most Recently Relevant to Health Maintenance Guarantor Name Account Type Relation to Patient Date of Phone Billing Address Jennifer Tellez Personal/Family Self 1980 [address] [place] [address] Advance Directives For more information, please contact: [phone] * Full Code (Latest Code Status on [...]
[2024-01-04] MEDS: LORazepam 1 MG TABLET PO ×2 (08:31→10:33)
[2024-01-04] MEDS: KETOROLAC 30 MG/ML inj IM (08:31)
--- NOTE | 2024-01-04 08:54 | ED_ITS ---
HPI - General Adult General Date Seen: 01/04/24 Chief complaint: Unspecified Complaint, Adult Stated complaint: Muscle spasms Time Seen by Provider: 01/04/24 07:51 Source: patient, EMS, RN notes reviewed and old records reviewed Mode of arrival: ambulatory Limitations: no limitations History of Present Illness HPI narrative: Patient is a 43-year-old female suffers from chronic neck discomfort, presents here by ambulance for involuntary spasm of her left arm, left side of her neck. She underwent interlaminar T C7-T1 injection 3 days ago, at [facility], there were no complications with this, I reviewed the report. She has had 2 previous injections. She reported pressure and discomfort the 1st couple days, and now she has some spasms of her left arm. She was seen in urgent care last night. And given prednisone, along with methocarbamol. She reports no improvement with this. She denies any significant pain in her neck, or down her arm. And radiculopathy type sensation she is on no anticoagulants, denies fevers chills or sweats. Does have a history of previous substance abuse according to her chart, anxiety, Related Data Home Medications ?Medication ?Instructions ?Recorded ?Confirmed citalopram 10 mg tablet 20 mg PO DAILY 09/30/22 01/03/24 acetaminophen 500 mg tablet 1,000 mg PO Q6H PRN pain 10/06/22 01/03/24 fluconazole 150 mg tablet mg PO 10/02/23 01/03/24 gabapentin 100 mg capsule 200 mg PO QID 10/02/23 01/03/24 loratadine 10 mg tablet 10 mg PO DAILY 10/02/23 01/03/24 mirtazapine 15 mg tablet 15 mg PO QPM 10/02/23 01/03/24 omeprazole 20 mg capsule,delayed 20 mg PO DAILY 10/02/23 01/03/24 release sennosides 8.6 mg-docusate sodium 2 tab PO BID 10/02/23 01/03/24 50 mg tablet (Senexon-S) valacyclovir 1 gram tablet 1,000 mg PO BID 10/02/23 01/03/24 Previous Rx's ?Medication ?Instructions ?Recorded hydrocortisone 2.5 % lotion 1 applic topical BID PRN #59 mL 01/03/23 epinephrine 0.3 mg/0.3 mL 0.3 ml IM Q5-15M PRN #2 ea 01/15/23 injection, auto-injector ibuprofen 600 mg tablet 600 mg PO Q6H PRN Pain 30 days #60 08/03/23 tabs methocarbamol 500 mg tablet 1,000 mg (2 x 500 mg) PO TID 10 01/03/24 days #60 tabs prednisone 10 mg tablet 10 mg PO DIRECTED #30 tabs 01/03/24 hydroxyzine HCl 25 mg tablet 25 mg PO TID PRN #14 tabs 01/04/24 Allergies Allergy/AdvReac Type Severity Reaction Status Date / Time shellfish derived Allergy Severe Anaphylaxis Verified 01/03/24 17:24 cephalexin [From Keflex] Allergy Intermediate Rash Verified 01/03/24 17:24 Cephalosporins Allergy Intermediate Rash Verified 01/03/24 17:24 Penicillins Allergy Intermediate Rash Verified 01/03/24 17:24 Review of Systems Status of ROS: Reports: 10 or more systems reviewed and unremarkable except as noted in History and below [facility] Medical History History of substance abuse ?F19.11 - Other psychoactive substance abuse, in remission (ICD-10) History of alcohol abuse ?F10.11 - Alcohol abuse, in remission (ICD-10) Femoral neck fracture ?S72.009A - Fracture of unspecified part of neck of unspecified femur, initial encounter for closed fracture (ICD-10) Cubital tunnel syndrome, bilateral ?G56.23 - Lesion of ulnar nerve, bilateral upper limbs (ICD-10) Obesity ?E66.9 - Obesity, unspecified (ICD-10) Substance use disorder ?F19.90 - Other psychoactive substance use, unspecified, uncomplicated (ICD- 10) Back problem ?M53.9 - Dorsopathy, unspecified (ICD-10) Anxiety ?F41.9 - Anxiety disorder, unspecified (ICD-10) Depression ?F32.A - Depression, unspecified (ICD-10) Asthma ?J45.909 - Unspecified asthma, uncomplicated (ICD-10) Surgical History Status post total hip replacement, 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) ?Z96.642 - Presence of left artificial hip joint (ICD-10) Status post laparoscopic cholecystectomy (09/13/19) ?Z90.49 - Acquired absence of other specified parts of digestive tract (ICD- 10) History of varicose vein ligation ?Z98.890 - Other specified postprocedural states (ICD-10) ?Z86.79 - Personal history of other diseases of the circulatory system (ICD- 10) Hx of hammer toe correction (10/22/03) ?Z98.890 - Other specified postprocedural states (ICD-10) ?Z87.39 - Personal history of other diseases of the musculoskeletal system and connective tissue (ICD-10) Family History Father Leukemia Social History Narrative: single, 2 kids, nonsmoker, no EtOH Highest level of school completed/degree received: Associate degree: occupational, technical, vocational program Smoking Status: Former smoker Do you use any of these nicotine containing products: None Second hand tobacco smoke exposure: No How often do you have a drink containing alcohol: never How often do you have six or more drinks on one occasion: Never AUDIT-C Alcohol total score: 0 Non-prescribed substance use: denies use Caffeine: Yes Are you using contraception or practicing any form of control: No service: No Exam Narrative: Exam Narrative: She is seen in room 3, she appears to be in no distress discussing her case normally, she is involuntarily jerking her ill left elbow and up and down relationship with biceps and triceps. Rhythmically. She also does somewhat of this with her left shoulder, trapezius up and down. She however stops, and is able to scroll on her phone using her left hand to hold her phone, and there is no rhythmic jerking with this. Her pupils are equal round reactive to light there is no scleral icterus redness her neck is supple range of motion is from 6 through to 21. Her lateral flexion is 20? in her rotation is 80? bilaterally, she has no palpable pain on her neck on palpation percussion her injection is little bit lower than I would suspect on the right side, in around T3 area. Laterally there is no evidence of redness around the swelling or any other abnormality her surgical first assistant strength bilaterally are excellent her finger abduction is normal, wrist dorsiflexion normal 1st finger thumb opposition biceps triceps power and also shoulder abduction are normal, her reflexes are 1/4 her biceps triceps and brachioradialis bilaterally. Her sensations normal over both of her arms normally. To gross touch. And sharp sensation. Her pulses are normal in upper extremities was no rash, but on her back she has evidence of tenia versicolor. Const: Vital Signs, click to edit/add: Vital Signs - 24 hr 01/04/24 07:52 01/04/24 10:42 01/04/24 11:19 Temperature 97.6 F Pulse Rate [Pulse Oximeter] 96 67 67 Respiratory Rate 18 18 18 Blood Pressure [Ri ght Upper Arm] 140/91 H 129/78 145/95 H Pulse Oximetry 96 96 98 Oxygen Delivery Me thod Room Air Room Air Room Air 01/04/24 12:42 Temperature Pulse Rate [Pulse Oximeter] 65 Respiratory Rate 16 Blood Pressure [Ri ght Upper Arm] 153/85 H Pulse Oximetry 99 Oxygen Delivery Me thod Room Air Documenting provider has reviewed patient's vital signs: yes Course Reevaluation(s) Time of Reevaluation #1: 09:42 Reevaluation #1: Patient is improving at this point. She has less of her involuntary movements of her left upper extremity, and feels better. I discussed her case with her primary physician, he reviewed the injection from radius, says there is good flow of contrast, from C8 of through C4, there were some bubbles however. He thought it would be a good idea given her complaints to get a cervical MRI, to rule out a hematoma, which would be uncommon. Along with the MRI of her brain to rule out a CVA. I spoke to the patient, she was okay with this we will give her some Ativan to further quell her movements, in the scanner. Time of Reevaluation #2: 14:18 Reevaluation #2: Jennifer's jerking is basically gone away at this point, I have results back from her cervical spine MRI, and her heads MRI, both are negative for acute stroke fluid collection or other abnormality. I think these are both reasonable she was very grateful for this. We will let her go home. I will give her small dose of hydroxyzine that will help her anxiety. 25 mg p.o. t.i.d.. It does cause some QT prolongation, but she has tolerated she tells me in the past. And she has no history of QT long syndrome. I think this is the better of the 2 we will see, with her history of substance abuse, and use of benzodiazepines. Vital Signs Vital signs: Initial Vital Signs Temperature 97.6 F 01/04/24 07:52 Temperature Source Temporal Artery Scan 01/04/24 07:52 Pulse Rate 96 01/04/24 07:52 Respiratory Rate 18 01/04/24 07:52 Blood Pressure 140/91 H 01/04/24 07:52 Blood Pressure Mean 107 H 01/04/24 07:52 Blood Pressure Position Supine 01/04/24 07:52 Pulse Oximetry 96 01/04/24 07:52 Oxygen Delivery Method Room Air 01/04/24 07:52 Vital Signs Temperature 97.6 F 01/04/24 07:52 Pulse Rate 96 01/04/24 07:52 Respiratory Rate 18 01/04/24 07:52 Blood Pressure 140/91 H 01/04/24 07:52 Pulse Oximetry 96 01/04/24 07:52 Oxygen Delivery Method Room Air 01/04/24 07:52 Temperature 97.6 F 01/04/24 07:52 Pulse Rate 65 01/04/24 12:42 Respiratory Rate 16 01/04/24 12:42 Blood Pressure 153/85 H 01/04/24 12:42 Pulse Oximetry 99 01/04/24 12:42 Oxygen Delivery Method Room Air 01/04/24 12:42 Medications Administered Medications: Discontinued Medications Generic Name Dose Route Start Last Admin Trade Name Dwight PRN Reason Stop Dose Admin Diphenhydramine HCl 50 mg 01/04/24 09:00 01/04/24 09:10 Diphenhydramine 25 Mg Capsule PO 01/04/24 09:01 50 mg ONCE ONE Administration Ketorolac Tromethamine 30 mg 01/04/24 08:20 01/04/24 08:31 Ketorolac 30 Mg/Ml Inj IM 01/04/24 08:21 30 mg ONCE ONE Administration Lorazepam 1 mg 01/04/24 08:20 01/04/24 08:31 Lorazepam 1 Mg Tablet PO 01/04/24 08:21 1 mg ONCE ONE Administration Lorazepam 1 mg 01/04/24 09:39 01/04/24 10:33 Lorazepam 1 Mg Tablet PO 01/04/24 09:40 1 mg ONCE ONE Administration Medical Decision Making MDM Narrative Medical decision making narrative: I did consider multiple diagnosis is including infection, epidural abscess, epidural hematoma from injection, nerve injury. Complications secondary to the trans laminar injection, tardive dyskinesia among other things. We will go ahead and give her a little bit of lorazepam, Toradol, and also some Benadryl. I think this is likely secondary to anxiety, as she is able to volitionally stop her movements. Discharge Plan Discharge Clinical Impression: Muscle twitching, Neck pain, Anxiety Patient Disposition: Home, Self-Care Condition: Stable Instructions: Muscle Spasm (ED), Muscle Cramp (ED), Anxiety (ED), Tremors (ED), Chronic Neck Pain (DC) Additional Instructions: Home rest, medications you may use her muscle relaxant along with some Tylenol. I have given you prescription for some hydroxyzine which helps with the anxiety also. Follow-up with primary care, but they MRI on both her neck and also on your head were all entirely normal which is excellent news! Prescriptions: New hydroxyzine HCl 25 mg tablet 25 mg PO TID PRNQty: 14 0RF No Action citalopram 10 mg tablet 20 mg PO DAILY gabapentin 100 mg capsule 200 mg PO QID valacyclovir 1 gram tablet 1,000 mg PO BID omeprazole 20 mg capsule,delayed release(DR/EC) 20 mg PO DAILY fluconazole 150 mg tablet PO mirtazapine 15 mg tablet 15 mg PO QPM loratadine 10 mg tablet 10 mg PO DAILY sennosides-docusate sodium [Senexon-S] 8.6-50 mg tablet 2 tab PO BID prednisone 10 mg tablet 10 mg PO DIRECTED Qty: 30 0RF Rx Instructions: Take four (4) tablets by mouth on days 1-3. Take three (3) tablets by mouth on days 4-6. Take two (2) tablets by mouth on days 7-9. Take one (1) tablet by mouth on days 10-12. Avoid NSAIDs while taking this medication. methocarbamol 500 mg tablet 1,000 mg PO TID 10 Days Qty: 60 0RF acetaminophen 500 mg tablet 1,000 mg PO Q6H PRN (Reason: pain) hydrocortisone 2.5 % lotion 1 applic topical BID PRNQty: 59 0RF epinephrine 0.3 mg/0.3 mL auto-injector 0.3 ml IM Q5-15M PRNQty: 2 0RF Rx Instructions: do not exceed 3 doses per episode ibuprofen 600 mg Tablet 600 mg PO Q6H PRN (Reason: Pain) 30 Days Qty: 60 0RF Follow Up/Referrals: Kika Johnston PA-C [Primary Care Provider] - Stand Alone Forms: MyHealth Info Instructions
[2024-01-04] MEDS: diphenhydrAMINE 25 MG CAPSULE 50 MG PO (09:10)
--- NOTE | 2024-01-04 09:39 | MR_ITS ---
Patient: CHAPIS URBINA Facility:?[facility] Patient ID:?[id number] Site Patient ID:?[id number]. Site :?[id number] Study:?MRI-Spine wo-01/04/2024 12:39:31 PM Ordering Physician:Maria De Jesus Sánchez Final Report: INDICATION: Left arm and neck spasms. Recent epidural injection. TECHNIQUE: Multiplanar multi sequence noncontrast MR images of the cervical spine. COMPARISON: None. FINDINGS: Cervical lordosis is maintained. Vertebral body heights are preserved. No acute fracture or spondylolisthesis. No T1 hypointense lesions or significant marrow edema. The cervical cord is normal in signal intensity. No paraspinal or epidural fluid collection. C2-3: No spinal canal or neural foraminal narrowing. C3-4: Annular bulge. No spinal canal or neural foraminal narrowing. C4-5: Disc degeneration and mild disc height loss. Broad-based left central disc protrusion. Left uncinate spurring. Mild spinal canal narrowing. Minimal left without right neural foraminal narrowing. C5-6: Disc degeneration and mild disc height loss. Shallow left central disc osteophyte complex. Left uncinate spurring. Minimal spinal canal narrowing. Mild left and right neural foraminal narrowing. C6-7: Annular bulge. No spinal canal or neural foraminal narrowing. C7-T1: No spinal canal or neural foraminal narrowing. T1-2: No spinal canal or neural foraminal narrowing. IMPRESSION: 1. Mild multilevel cervical spondylosis without spinal canal or neural foraminal stenosis. 2. No paraspinal or epidural fluid collection. Dictated by Azar Marcelino MD @ 01/04/2024 12:53:41 PM Signed by:?Azar Marcelino MD @01/04/2024 12:53:41 PM (Electronic Signature)
[2024-01-04 10:42] VITALS: BP 129/78; PULSE 67; RESP 18; O2SAT 96
[2024-01-04 11:19] VITALS: BP 145/95; PULSE 67; RESP 18; O2SAT 98
[2024-01-04 12:42] VITALS: BP 153/85; PULSE 65; RESP 16; O2SAT 99
== END 2024-01-04 14:18 | disposition home or self-care (01) ==
PROVIDERS: Emergency Provider Family Medicine; PCP Physician Assistant Medical
DX: M62.838 Other muscle spasm (principal); M54.2 Cervicalgia; F41.9 Anxiety disorder, unspecified
CPT/HCPCS: 70551; 72141; 96374; 99284; A9270; J1885

== ENCOUNTER 2024-01-05 13:29 | Outpatient (CLI) | payer MEDICARE, OTHER, SELFPAY ==
--- OUTSIDE RECORDS SUMMARY | 2024-01-06 04:20 | XMS_ITS | Clinical Summary ---
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 08/23/2006 04/01/2008 Encounters Date Type Department Care Team Description 01/05/2024 6:20 PM CDT Telemedicine [facility] [address] [place] [address] Heather Guadalupe, NEGRO tartive dyskensia; Telehealth 01/05/2024 1:20 PM CDT Telemedicine [facility] [address] [place] [address] Leonor Gurrola NP Telehealth (Virtual visit-no vitals taken) 01/05/2024 1:15 PM CDT Telemedicine [facility] [address] [place] [address] Leonor Gurrola, NEGRO Telehealth (Virtual visit-no vitals taken) 01/05/2024 Travel 01/04/2024 5:30 PM CDT Telemedicine [facility] [address] [place] [address] Oscar Cheatham PA Anxiety 01/04/2024 Orders Only [facility] Scanner 1 scan: (1-Ord) [place] ED, MR HEAD/BRAIN WO CONTRAST, 01/04/2024 01/04/2024 Orders Only [facility] Scanner 1 scan: (1-Ord) [place], CERVICAL SPINE WO CON, 01/04/2024 01/04/2024 Travel 01/04/2024 Orders Only [facility] Scanner 1 scan: (1-Ord) [place], HEAD, 01/04/2024 01/03/2024 Refill [facility] [address] [place] [address] Kika Johnston PA Refill Request (Omeprazole) 01/02/2024 Refill [facility] [address] [place] [address] Kika Johnston PA Refill Request (Senexon-s) 01/02/2024 Telephone [facility] [[email or web address] [address] [place] [address] Rosibel Shen MD Medication Management (cyclobenzaprine (FLEXERIL) 10 mg tablet) 01/01/2024 4:10 PM CDT Telemedicine [facility] [address] [place] [address] Mee Lamar PA Referral (Vascular); Telehealth (No vitals) 01/01/2024 Orders Only [facility] Scanner 1 scan: (1-Ord) [facility], INTERLAMINAR CERVICAL EPIDUROGRAPHY and THERAPEUTIC INJ, C7-T1, W/ MODERATE CONSCIOUS SEDATION, 01/01/2024 01/01/2024 Travel 01/01/2024 Telephone [facility] [address] [place] [phone] Magaly Pittman MD 12/28/2023 2:30 PM CDT Telemedicine [facility] [[email or web address]] [address] [place] [phone] Rosibel Shen MD 12/26/2023 Nurse/Clinic Staff Only [facility] [address] [place] [address] Kika Johnston PA Weight (Walk in weight check) 12/24/2023 Travel 12/22/2023 Telephone [facility] [address] [place] [address] Kika Johnston PA Questions (Speak to a nurse ) 12/18/2023 Medical Messaging [facility] [address] [place] [address] Hector Baez MD Neck 12/13/2023 3:00 PM CDT Orders Only [facility] [address] [place] [address] Lab, [facility] 12/12/2023 Travel 12/11/2023 3:20 PM CDT Telemedicine [facility] [address] [place] [address] Mee Lamar PA Fatigue 12/11/2023 Travel 12/07/2023 1:40 PM CDT Telemedicine [facility] [address] [place] [address] Hector Baez MD Musculoskeletal Problem (Follow up neck and back pain) 12/06/2023 Travel 11/09/2023 E-Visit [facility] [[email or web address]] [place] [phone] Rosibel Shen MD Tinea vercicolor 10/31/2023 7:50 AM CDT Telemedicine [facility] [address] [place] [address] Kika Johnston PA Telehealth (MRI results); Medication Management (Changing muscle relaxer ) 10/31/2023 Orders Only [place] [address] [place] [phone] Rosibel Shen MD 1 scan: (1-Ord) [facility], CERVICAL SPINE, 10/26/2023 10/27/2023 Telephone [facility] [address] [place] [address] Kika Johnston PA Prior Authorization (Senexon-S 8.6-50 mg tablet (DENIED/EXCLUDED)) 10/26/2023 Travel 10/20/2023 Telephone [facility] [[email or web address]] Kike H[place]ER [place] [phone] Rosibel Shen MD Referral ([facility] fax) 10/20/2023 Telephone [place] [address] [place] [phone] Rosibel Shen MD fax referral to [facility] 10/19/2023 2:00 PM CDT Telemedicine [facility] [[email or web address]] [place] [place] [place] [phone] Rosibel Shen MD 10/18/2023 Travel 10/17/2023 Orders Only [address] [place] [address] Kika Johnston PA <No scans attached> 10/13/2023 Refill [facility] [address] [place] [address] Kika Johnston PA Refill Request (Senexon-s, Cyclobenzaprine) [...] Medical History Relation Name Comments Cancer Father 1999 AML Alcohol/Drug Mother bipolar? Relation Name Status [...] Sex Assigned at Female 05/21/2021 8:17 AM RENEWABLE ENERGY DIVISION MANAGER Gender Identity Female 05/21/2021 8:17 AM RENEWABLE ENERGY DIVISION MANAGER Sexual Orientation Straight 02/13/2021 3: 53 AM [...] ST Respiratory Rate 16 05/17/2023 7:50 AM RENEWABLE ENERGY DIVISION MANAGER Oxygen Saturation 98% 07/28/2023 10:27 AM RENEWABLE ENERGY DIVISION MANAGER Inhaled Oxygen Concentration - - Weight 121.6 kg (268 lb) 12/26/2023 12:28 PM CDT Height 180.3 cm (5' 11) 12/26/2023 12:28 PM CDT Body Mass Index 37.38 12/26/2023 12:28 PM CDT Plan of Treatment Upcoming Encounters Date Type Department Care Team (Late st Contact Info) Description 01/16/2024 7:50 AM CDT Telemedicine [facility] [address] [place] [address] Kika Johnston PA [address] [place] [address] 02/19/2024 11:30 AM CDT Office Visit [facility] [address] [place] [phone] Magaly Pittman MD [address] [place] [address] 03/08/2024 11:00 AM CDT Telemedicine [facility] [address] [place] [address] Hector Baez MD [address] [place] [address] 03/20/2024 10:20 AM CDT Office Visit [facility] [address] [place] [address] Erin Pritchett PA [address] [place], [place] [phone] Health Maintenance Due Date Last Done Comments Pneumococcal series for age 6-64 (1 of 2 - PCV) 1986 Pap test for age 21-65 11/02/2019 7, 08/11/2014 (Completed outside of [facility]), 07/21/2009, Additional history exists COVID-19 vaccine [...] 10/26/2023 12:00 AM CDT Neck pain, acute STAFFING MANAGER THIN PREP PAP SCREEN IMAGED Routine 11/01/2016 [...] - 4.20 uIU/mL 12/14/2023 5:44 PM CDT [facility] Blood BLOOD SPECIMEN / Unknown Venipuncture / Unknown 12/13/2023 1:30 PM CDT 12/13/2023 1:30 PM CDT Narrative [facility] - 12/14/2023 5:44 PM CDT In Adults, TSH values between 5.00 and 10.00 uIU/ml do not necessarily indicate the presence of Hypothyroidism. Correlation with clinical findings such as presence of goiter and/or Thyroperoxidase (TPO) Antibody may be helpful. For more information please refer to [place] 2004; 291: 228-238. Mee ATKINS CHEMISTRY [facility] [address] [place] [address], * (ABNORMAL) VITAMIN D 25 (DEFICIENCY) (12/13/2023 1:30 PM CDT) VITAMIN D TOTAL 88.3(H) 20.0 - 80.0 ng/mL 12/14/2023 1:51 PM CDT [facility] Blood BLOOD SPECIMEN / Unknown Venipuncture / Unknown 12/13/2023 1:30 PM CDT 12/13/2023 1:30 PM CDT Narrative [facility] - 12/14/2023 1:51 PM CDT ? Vitamin D Status Deficiency: ? <20 ng/mL Insufficiency: ?20-29 ng/mL Sufficiency: ?30-80 ng/mL Possible Toxicity: ??>80 ng/mL Based on [place] of Medicine recommendations Biotin supplements may cause clinically significant interference for this test assay. ??If interference is suspected, it is strongly recommended that biotin is discontinued for at least one week prior to retesting. Mee ATKINS SEND OUTS [facility] [address] [place] [address], * (ABNORMAL) CBC W PLT NO DIFF (12/13/2023 1:30 PM CDT) WHITE BLOOD COUNT 11.5(H) 4.5 - 11.0 thou/cu mm 12/13/2023 1:32 PM CDT [facility] RED BLOOD COUNT 5.02 4.00 - 5.20 mil/cu mm 12/13/2023 1:32 PM CDT [facility] HEMOGLOBIN 13.6 12.0 - 16.0 g/dL 12/13/2023 1:32 PM CDT [facility] HEMATOCRIT 40.6 33.0 - 51.0 % 12/13/2023 1:32 PM CDT [facility] MCV 81 80 - 100 fL 12/13/2023 1:32 PM CDT [facility] MCH 27.1 26.0 - 34.0 pg 12/13/2023 1:32 PM CDT [facility] MCHC 33.5 32.0 - 36.0 g/dL 12/13/2023 1:32 PM CDT [facility] RDW 15.2 11.5 - 15.5 % 12/13/2023 1:32 PM CDT [facility] PLATELET COUNT 411 140 - 440 thou/cu mm 12/13/2023 1:32 PM CDT [facility] MPV 8.8 6.5 - 11.0 fL 12/13/2023 1:32 PM CDT [facility] Blood BLOOD SPECIMEN / Unknown Venipuncture / Unknown 12/13/2023 1:30 PM CDT 12/13/2023 1:30 PM CDT Mee ATKINS HEMATOLOGY [facility] [address] [place] [address], * FERRITIN (12/13/2023 1:30 PM CDT) FERRITIN 90.7 15.0 - 150.0 ng/mL 12/14/2023 1:50 PM CDT [facility] Blood BLOOD SPECIMEN / Unknown Venipuncture / Unknown 12/13/2023 1:30 PM CDT 12/13/2023 1:30 PM CDT Mee ATKINS CHEMISTRY [facility] [address] [place] [address], * (ABNORMAL) BASIC METABOLIC PANEL (12/13/2023 1:30 PM CDT) SODIUM 138 136 - 145 mmol/L 12/14/2023 1:50 PM CDT [facility] POTASSIUM 4.2 3.5 - 5.1 mmol/L 12/14/2023 1:50 PM CDT [facility] CHLORIDE 103 98 - 107 mmol/L 12/14/2023 1:50 PM CDT [facility] CO2,TOTAL 20(L) 22 - 29 mmol/L 12/14/2023 1:50 PM CDT [facility] ANION GAP 15 5 - 18 12/14/2023 1:50 PM CDT [facility] GLUCOSE 108(H) 70 - 99 mg/dL 12/14/2023 1:50 PM CDT [facility] CALCIUM 9.4 8.6 - 10.0 mg/dL 12/14/2023 1:50 PM CDT [facility] BUN 11 6 - 20 mg/dL 12/14/2023 1:50 PM CDT [facility] CREATININE 0.65 0.50 - 0.90 mg/dL 12/14/2023 1:50 PM CDT [facility] BUN/CREAT RATIO 17 10 - 20 1:50 PM CDT [facility] eGFR >90 >90 mL/min/1.7 3m2 12/14/2023 1:50 PM CDT [facility] Comment:As of 2021, eG [...] 12/13/2023 1:30 PM CDT Mee ATKINS CHEMISTRY [facility] [address] [place] [address], * MR SPINE CERVICAL WO (10/26/2023 12:00 AM CDT) Anatomical Region Laterality Modality Spine, CERVICAL SPINE Magnetic R esonance Rosibel Shen MD MR * STAFFING MANAGER THIN PREP PAP SCREEN IMAGED (11/01/2016 2:40 PM CDT) Case Report Gynecologic Cytology Report ? Case: [id number] ? Authorizing Provider: ??Jodee Velazquez PA ?Collected: ? 11/01/2016 1440 ? Ordering Location: ? [facility] ?? Received: ?11/01/2016 1440 ? Clinic ? First Screen: ?Daniela Whelan ? Specimen: ?STAFFING MANAGER ThinPrep Vial Screening, Cervical ? 11/08/2016 4:40 PM CDT [facility] INTERPRETATION/ RESULT NEGATIVE FOR INTRAEPITHELIAL LESION OR MALIGNANCY (NIL) (none) 11/08/2016 4:40 PM CDT [facility] IMEN ADEQUACY Satisfactory for evaluation No endocervical component seen 11/08/2016 4:40 PM CDT [facility] HPV REQUEST HPV if ASCUS 11/08/2016 4:40 PM CDT [facility] Date of LMP 10/18/16 11/08/2016 4:40 PM CDT [facility] Last Pap Date May 2014 11/08/2016 4:40 PM CDT [facility] Last Pap Result NIL 7 4:40 PM CDT [facility] Abnormal Pap or [place] Bx in last 5 years No 11/08/2016 4:40 PM CDT [facility] Menstrual Status Regular Periods 11/08/2016 4:40 PM CDT [facility] [place] Bx Done Today No 11/08/2016 4:40 PM CDT [facility] Additional Information None given 11/08/2016 4:40 PM CDT [facility] Automated Review Successful 11/08/2016 4:40 PM CDT [facility] Comment:Specimen processed s uccessfully by automated building custodian device, [employer]io[employer] Imaging System, [employer] Note The pap test is a screening technique, not a diagnostic procedure. ??It is used primarily to screen for squamous cancers and precursor lesions. ??Published studies have shown that it is subject to both false negative and false positive results. ??The pap test should not be used as the sole means to diagnose or exclude pre-malignant and malignant lesions. Interpreted at [facility] ([facility], [facility], [facility], [facility], [facility], [facility], [facility]) 11/08/2016 4:40 PM CDT [facility] Other (Cervical) 11/01/2016 2:40 PM CDT 11/01/2016 2:40 PM CDT Jodee ATKINS PATHOLOGY/CYTOLOGY [facility] [address] [place] [address], * ANTI HCV (11/01/2016 2:38 PM CDT) HEPATITIS C ANTIBODY Non-Reacti ve Non-Reacti ve 11/01/2016 8:25 PM CDT [facility] Blood BLOOD SPECIMEN / Unknown Venipuncture / Unknown 11/01/2016 2:38 PM CDT 11/01/2016 2:38 PM CDT Narrative [facility] - 11/01/2016 8:25 PM CDT Antibodies to HCV not detected; does not exclude the possibility of exposure to HCV. Jodee ATKINS SEND OUTS [facility] [address] [place] [address], * ANTI HIV 1/2 (11/01/2016 2:38 PM CDT) HIV-1/HIV-2 ANTIBODY Non-Reacti ve Non-Reacti ve 11/01/2016 8:26 PM CDT [facility] Blood BLOOD SPECIMEN / Unknown Venipuncture / Unknown 11/01/2016 2:38 PM CDT 11/01/2016 2:38 PM CDT Narrative [facility] - 11/01/2016 8:26 PM CDT HIV-1 p24 and HIV-1/HIV-2 Ab not detected Jodee ATKINS SEND OUTS [facility] [address] [place] [address], from Last 3 Months or Most Recently [...] Preferences, Provider to review later Care Teams Network Cable Installer Relationship Specialty Start Date End Date Kika Johnston PA [address] [place] [address] PCP - General Physician Extrusion Supervisor 02/11/21
--- OUTSIDE RECORDS SUMMARY | 2024-01-06 04:20 | XMS_ITS | Clinical Summary ---
Author Organization [facility] Address [address] [place] [address] Care Team Providers Care Iso Coordinator Name Role Phone Kika Johnston Primary Care [...] 08/05/2005, 08/05/2005, Additional history exists Care Teams Iso Coordinator Relationship Specialty Start Date End Date Kika Johnston PA [address] [place] [address] PCP - General 01/06/23
--- OUTSIDE RECORDS SUMMARY | 2024-01-06 04:20 | XMS_ITS | Clinical Summary ---
Author Organization [facility] Address [address] [place] [address] Phone Care Team Providers Care Personal Injury Attorney Name Role Phone Unavailable Primary Care Provider Unavailabl e Source Comments Zero2IPO is fully rolled out on [employer]. Last update 10/24/08.[facility] Allergies Active Allergy Reactions Criticality Noted Date [...] hours as needed. Active CHOLEcalciferol (VITAMIN D3) 51571 UNITS oral capsule Take 1 capsule (50,000 [...] 10:18 PM CDT) HIV Antigen-Antibody Nonreactive Nonreactive [facility] Comment:Performance characte ristics have not been established with this test on patients less than 2 years of age. Blood 01/07/2023 10:1 8 PM CDT 01/07/2023 10:46 PM CDT Sudhakar Koenig MD LABORATORY [facility] [address] [address] from Last 3 Months or Most Recently Relevant to Health Maintenance Guarantor Name Account Type Relation to Patient Date of Phone Billing Address Jennifer Tellez Personal/Family Self 1980 [address] [place] [address] Advance Directives For more information, please contact: [phone] * Full Code (Latest Code Status on [...]
--- OUTSIDE RECORDS SUMMARY | 2024-01-06 04:20 | XMS_ITS | Referral Summary ---
Author Organization [facility] Address [address] [place] [address] Care Team Providers Care Merchandise Pickup/Receiving Associate Name Role Phone Kika Johnston Primary Care [...] of Treatment Not on file Care Teams Merchandise Pickup/Receiving Associate Relationship Specialty Start Date End Date Kika Johnston PA [address] [place] [address] PCP - General 01/06/23
--- OUTSIDE RECORDS SUMMARY | 2024-01-06 04:20 | XMS_ITS | Referral Summary ---
Author Organization [facility] Address [address] [place] [address] Phone Care Team Providers Care Joinery Setter Out Name Role Phone Unavailable Primary Care Provider Unavailabl e Source Comments [facility] is fully rolled out on [employer]. Last update 10/24/08.[facility] Allergies Active Allergy Reactions Criticality Noted Date [...] hours as needed. Active CHOLEcalciferol (VITAMIN D3) 44070 UNITS oral capsule Take 1 capsule (50,000 [...] 10:18 PM CDT) HIV Antigen-Antibody Nonreactive Nonreactive [facility] Comment:Performance characte ristics have not been established with this test on patients less than 2 years of age. Blood 01/07/2023 10:1 8 PM CDT 01/07/2023 10:46 PM CDT Sudhakar Koenig MD LABORATORY [facility] [address] [place] [address] from Last 3 Months or Most Recently Relevant to Health Maintenance Guarantor Name Account Type Relation to Patient Date of Phone Billing Address Jennifer Tellez Personal/Family Self 1980 [address] [place] [address] Advance Directives For more information, please contact: [phone] * Full Code (Latest Code Status on [...]
== END 2024-01-05 13:30 | disposition home or self-care (01) ==
LOC: AMB 01-06 04:18
PROVIDERS: PCP Physician Assistant Medical; Visit Provider Emergency Medicine Emergency Medical Services
DX: M62.838 Other muscle spasm (principal); M54.2 Cervicalgia
CPT/HCPCS: A0425; A0427

== ENCOUNTER 2024-01-05 13:55 | Emergency (ER) | payer MEDICARE, OTHER, SELFPAY ==
[2024-01-05 14:01] VITALS: BP 135/90; PULSE 95; RESP 16; TEMP 36.5; O2SAT 98; BMI 37.1
--- NOTE | 2024-01-05 15:05 | ED.GENADULT ---
HPI - General Adult General Date Seen: 01/05/24 Chief complaint: Neuro Symptoms/Altered Deficit Stated complaint: weakness Time Seen by Provider: 01/05/24 14:25 Source: patient Mode of arrival: ambulatory Limitations: no limitations History of Present Illness HPI narrative: Patient is a 43-year-old female with a history of PTSD, depressive disorder, ordering, anxiety, bipolar presenting to the emergency department for involuntary muscle contractures. She states on 12/31 she had injection in her neck for about an disc. Symptoms resolved after that but the next afternoon she started having these involuntary contractions. There were not getting better so she went to urgent care the next day and was given prednisone. She states that made it worse and she return to the emergency department yesterday. At that time she had MRI of her head and cervical is spine done that showed no concerning abnormalities. Symptoms seem to improved with Ativan and she was discharged with hydroxyzine which she has taken in the past. Symptoms have continued to persist and she states she spoke to a tele health provider who prescribed her Ativan. She states she is most likely every 6 hours when she takes them they help for an hour to an then things get worse again. She states she spoke to her psychiatrist who thinks it could be tardive dyskinesia and prescribed a medication but it will take time to get due to insurance. She has appointment with her psychiatrist in 4 days. Denies chest pain, shortness of breath, lightheadedness, dizziness, weakness, numbness, abdominal pain, diarrhea, constipation. Related Data Home Medications ?Medication ?Instructions ?Recorded ?Confirmed citalopram 10 mg tablet 20 mg PO DAILY 09/30/22 01/03/24 acetaminophen 500 mg tablet 1,000 mg PO Q6H PRN pain 10/06/22 01/03/24 fluconazole 150 mg tablet mg PO 10/02/23 01/03/24 gabapentin 100 mg capsule 200 mg PO QID 10/02/23 01/03/24 loratadine 10 mg tablet 10 mg PO DAILY 10/02/23 01/03/24 mirtazapine 15 mg tablet 15 mg PO QPM 10/02/23 01/03/24 omeprazole 20 mg capsule,delayed 20 mg PO DAILY 10/02/23 01/03/24 release sennosides 8.6 mg-docusate sodium 2 tab PO BID 10/02/23 01/03/24 50 mg tablet (Senexon-S) valacyclovir 1 gram tablet 1,000 mg PO BID 10/02/23 01/03/24 Previous Rx's ?Medication ?Instructions ?Recorded hydrocortisone 2.5 % lotion 1 applic topical BID PRN #59 mL 01/03/23 epinephrine 0.3 mg/0.3 mL 0.3 ml IM Q5-15M PRN #2 ea 01/15/23 injection, auto-injector ibuprofen 600 mg tablet 600 mg PO Q6H PRN Pain 30 days #60 08/03/23 tabs methocarbamol 500 mg tablet 1,000 mg (2 x 500 mg) PO TID 10 01/03/24 days #60 tabs prednisone 10 mg tablet 10 mg PO DIRECTED #30 tabs 01/03/24 hydroxyzine HCl 25 mg tablet 25 mg PO TID PRN #14 tabs 01/04/24 benztropine 1 mg tablet See Rx Instructions .Route 01/05/24 .COMPLEX #20 tabs Allergies Allergy/AdvReac Type Severity Reaction Status Date / Time shellfish derived Allergy Severe Anaphylaxis Verified 01/05/24 14:00 cephalexin [From Keflex] Allergy Intermediate Rash Verified 01/05/24 14:00 Cephalosporins Allergy Intermediate Rash Verified 01/05/24 14:00 Penicillins Allergy Intermediate Rash Verified 01/05/24 14:00 Review of Systems Status of ROS: Reports: 10 or more systems reviewed and unremarkable except as noted in History and below [facility] Medical History History of substance abuse ?F19.11 - Other psychoactive substance abuse, in remission (ICD-10) History of alcohol abuse ?F10.11 - Alcohol abuse, in remission (ICD-10) Femoral neck fracture ?S72.009A - Fracture of unspecified part of neck of unspecified femur, initial encounter for closed fracture (ICD-10) Cubital tunnel syndrome, bilateral ?G56.23 - Lesion of ulnar nerve, bilateral upper limbs (ICD-10) Obesity ?E66.9 - Obesity, unspecified (ICD-10) Substance use disorder ?F19.90 - Other psychoactive substance use, unspecified, uncomplicated (ICD-10) Back problem ?M53.9 - Dorsopathy, unspecified (ICD-10) Anxiety ?F41.9 - Anxiety disorder, unspecified (ICD-10) Depression ?F32.A - Depression, unspecified (ICD-10) Asthma ?J45.909 - Unspecified asthma, uncomplicated (ICD-10) Surgical History Status post total hip replacement, 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) ?Z96.642 - Presence of left artificial hip joint (ICD-10) Status post laparoscopic cholecystectomy (09/13/19) ?Z90.49 - Acquired absence of other specified parts of digestive tract (ICD-10) History of varicose vein ligation ?Z98.890 - Other specified postprocedural states (ICD-10) ?Z86.79 - Personal history of other diseases of the circulatory system (ICD-10) Hx of hammer toe correction (10/22/03) ?Z98.890 - Other specified postprocedural states (ICD-10) ?Z87.39 - Personal history of other diseases of the musculoskeletal system and connective tissue (ICD-10) Family History Father Leukemia Social History Narrative: single, 2 kids, nonsmoker, no EtOH Highest level of school completed/degree received: Associate degree: occupational, technical, vocational program Smoking Status: Former smoker Do you use any of these nicotine containing products: None Second hand tobacco smoke exposure: No How often do you have a drink containing alcohol: never How often do you have six or more drinks on one occasion: Never AUDIT-C Alcohol total score: 0 Non-prescribed substance use: denies use Caffeine: Yes Are you using contraception or practicing any form of control: No service: No Exam Narrative: Exam Narrative: Const: Well-nourished, Well-developed, in mild distress Eyes: PERRL, no conjunctival injection, and symmetrical lids HENT: Atraumatic external nose and ears. Moist mucous membranes. Neck: Symmetric, trachea midline, No thyromegaly. CVS: RRR, No murmurs or gallops. Peripheral pulses 2+ and equal in all extremities RESP: Unlabored respiratory effort. Clear to auscultation bilaterally. GI: Nontender/Nondistended, No rebound or guarding. MSK:Extremities w/o deformity, Normal Active ROM Skin: Warm, Dry. No rashes or lesions. Neuro: Normal Muscle tone, Cranial nerves 2-12 grossly intact, normal [id number], normal [id number], normal gait, normal strength 5/5 upper lower extremities bilaterally, normal sensation upper and lower extremities bilaterally, normal rapid alternating movements. Her movements seem to improve when she is distracted Psych: Awake, Alert, & Oriented x3. Appropriate mood and affect. Const: Vital Signs, click to edit/add: Vital Signs - 24 hr 01/05/24 14:01 Temperature 97.7 F Pulse Rate [Pulse Oximeter] 95 Respiratory Rate 16 Blood Pressure [Le ft Upper Arm] 135/90 H Pulse Oximetry 98 Oxygen Delivery Me thod Room Air Course Vital Signs Vital signs: Initial Vital Signs Temperature 97.7 F 01/05/24 14:01 Temperature Source Temporal Artery Scan 01/05/24 14:01 Pulse Rate 95 01/05/24 14:01 Pulse Rhythm Regular 01/05/24 14:01 Respiratory Rate 16 01/05/24 14:01 Blood Pressure 135/90 H 01/05/24 14:01 Blood Pressure Mean 105 01/05/24 14:01 Blood Pressure Position Supine 01/05/24 14:01 Pulse Oximetry 98 01/05/24 14:01 Oxygen Delivery Method Room Air 01/05/24 14:01 Vital Signs Temperature 97.7 F 01/05/24 14:01 Pulse Rate 95 01/05/24 14:01 Respiratory Rate 16 01/05/24 14:01 Blood Pressure 135/90 H 01/05/24 14:01 Pulse Oximetry 98 01/05/24 14:01 Oxygen Delivery Method Room Air 01/05/24 14:01 Temperature 97.7 F 01/05/24 14:01 Pulse Rate 95 01/05/24 14:01 Respiratory Rate 16 01/05/24 14:01 Blood Pressure 135/90 H 01/05/24 14:01 Pulse Oximetry 98 01/05/24 14:01 Oxygen Delivery Method Room Air 01/05/24 14:01 Medications Administered Medications: Discontinued Medications Generic Name Dose Route Start Last Admin Trade Name Freq PRN Reason Stop Dose Admin Benztropine Mesylate 1 mg 01/05/24 14:48 08/16/24 15:23 Benztropine Mesylate 2 Mg/2 Ml Inj IM 01/05/24 14:49 1 mg ONCE ONE Administration Medical Decision Making MDM Narrative Medical decision making narrative: Patient is a 43-year-old female presenting to emergency department for involuntary muscle contractures. Is mostly her neck. Have noticed a decrease notably when she is distracted. She also states symptoms improved for short amount of time when she gets Ativan. I feel this might be partially related to anxiety. Her movements do not look like hard I have disc in [place] and look more like an acute dystonic reaction. She is on some medications that can cause that but she has been on them for extended period of time so it seems unlikely they would be causing it although she did get the prednisone taper and the cortisone shot? she said made her symptoms worse so there could be some odd reaction with her current medications and the prednisone. I would is a basic labs to make sure there is no other concerning findings. The only abnormality was a white count of 19.63 but she is showing no other signs of infection and her history is consistent with white count at seem to bounce around start do not believe this is a sign of infection. I did try benztropine which she states improved her symptoms. Due to that I believe I will discharge her on the benztropine and she will follow up with her psychiatrist in for days. Lab Data Labs: Lab Results 01/05/24 Range/Units 15:09 WBC 19.63 H (4.50-11.00) K/uL RBC 4.80 (4.00-5.20) m/uL Hgb 12.6 (12.0-16.0) gm/dL Hct 39.6 (33.0-51.0) % MCV 83 (80-100) fL MCH 26 (26-34) pg MCHC 32 (32-36) gm/dL RDW Coeff of Afshin 15.2 (11.5-15.5) % Plt Count 346 (140-440) K/uL Neut % (Auto) 62.6 (42.0-72.0) % Lymph % (Auto) 28.0 (20-44) % Coos % (Auto) 6.1 (0.0-11.0) % Eos % (Auto) 1.0 (0.0-7.0) % Baso % (Auto) 0.4 (0.0-3.0) % Neut # (Auto) 12.30 H (1.7-7.0) K/uL Lymph # (Auto) 5.50 H (0.90-2.90) K/uL [place] # (Auto) 1.20 H (0.00-0.90) K/UL Eos # (Auto) 0.20 (0.00-0.50) K/uL Baso # (Auto) 0.10 (0.00-0.30) K/uL Abs Immat Gran (auto) 0.40 H (0.00-0.30) K/uL Imm/Tot Granulo (auto) 1.9 % Sodium 137 (135-149) mmol/L Potassium 3.3 L (3.6-5.1) mmol/L Chloride 102 (96-114) mmol/L Carbon Dioxide 26 (20-32) mmol/L Anion Gap 9 (7-15) mEq/L BUN 16 (5-24) mg/dL Creatinine 0.8 (0.5-1.5) mg/dL Estimated Creat Clear 101.34 Estimated GFR 94 ml/min Glucose 88 (60-115) mg/dL Calcium 8.8 (8.4-10.6) mg/dL Discharge Plan Discharge Clinical Impression: 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 Return to emergency department for new or worsening symptoms. Make sure to keep your scheduled appointment with the psychiatrist. Prescriptions: New benztropine 1 mg tablet See Rx Instructions .ROUTE .COMPLEX Qty: 20 0RF Rx Instructions: Take 1-2 mg up to twice a day for neck spasms and movement No Action citalopram 10 mg tablet 20 mg PO DAILY gabapentin 100 mg capsule 200 mg PO QID valacyclovir 1 gram tablet 1,000 mg PO BID omeprazole 20 mg capsule,delayed release(DR/EC) 20 mg PO DAILY fluconazole 150 mg tablet PO mirtazapine 15 mg tablet 15 mg PO QPM loratadine 10 mg tablet 10 mg PO DAILY sennosides-docusate sodium [Senexon-S] 8.6-50 mg tablet 2 tab PO BID prednisone 10 mg tablet 10 mg PO DIRECTED Qty: 30 0RF Rx Instructions: Take four (4) tablets by mouth on days 1-3. Take three (3) tablets by mouth on days 4-6. Take two (2) tablets by mouth on days 7-9. Take one (1) tablet by mouth on days 10-12. Avoid NSAIDs while taking this medication. methocarbamol 500 mg tablet 1,000 mg PO TID 10 Days Qty: 60 0RF acetaminophen 500 mg tablet 1,000 mg PO Q6H PRN (Reason: pain) hydrocortisone 2.5 % lotion 1 applic topical BID PRNQty: 59 0RF epinephrine 0.3 mg/0.3 mL auto-injector 0.3 ml IM Q5-15M PRNQty: 2 0RF Rx Instructions: do not exceed 3 doses per episode ibuprofen 600 mg Tablet 600 mg PO Q6H PRN (Reason: Pain) 30 Days Qty: 60 0RF hydroxyzine HCl 25 mg tablet 25 mg PO TID PRNQty: 14 0RF Follow Up/Referrals: Kika Johnston PA-C [Primary Care Provider] - Stand Alone Forms: MyHealth Info Instructions
--- OUTSIDE RECORDS SUMMARY | 2024-01-05 15:05 | XMS_ITS | Referral Summary ---
Author Organization [facility] Address [address] [place] [address] Care Team Providers Care Corncob Pipes Assembler Name Role Phone Kika Johnston Primary Care [...] of Treatment Not on file Care Teams Corncob Pipes Assembler Relationship Specialty Start Date End Date Kika Johnston PA [address] [place] [address] PCP - General 01/06/23
--- OUTSIDE RECORDS SUMMARY | 2024-01-05 15:05 | XMS_ITS | Referral Summary ---
Author Organization [facility] Address [address] [place] [phone] Phone Care Team Providers Care Oxyacetylene Cutter Name Role Phone Unavailable Primary Care Provider Unavailabl e Source Comments [employer] is fully rolled out on [employer]. Last update 10/24/08.[facility] Allergies Active Allergy Reactions Criticality Noted Date [...] hours as needed. Active CHOLEcalciferol (VITAMIN D3) 90153 UNITS oral capsule Take 1 capsule (50,000 [...] 10:18 PM CDT) HIV Antigen-Antibody Nonreactive Nonreactive [facility] Comment:Performance characte ristics have not been established with this test on patients less than 2 years of age. Blood 01/07/2023 10:1 8 PM CDT 01/07/2023 10:46 PM CDT Sudhakar Koenig MD LABORATORY [facility] [address] [place] [address] from Last 3 Months or Most Recently Relevant to Health Maintenance Guarantor Name Account Type Relation to Patient Date of Phone Billing Address Jennifer Tellez Personal/Family Self 1980 [address] [place] [address] Advance Directives For more information, please contact: [phone] * Full Code (Latest Code Status on [...]
--- OUTSIDE RECORDS SUMMARY | 2024-01-05 15:05 | XMS_ITS | Clinical Summary ---
Author Organization [employer] Address [address] [place] [address] Phone Care Team Providers Care Vp Ad Products And Planning Name Role Phone Unavailable Primary Care Provider Unavailabl e Source Comments [employer] is fully rolled out on [email or web address]. Last update 10/24/08.[facility] [employer] Allergies Active Allergy Reactions Criticality Noted Date [...] hours as needed. Active CHOLEcalciferol (VITAMIN D3) 77617 UNITS oral capsule Take 1 capsule (50,000 [...] PM CDT) HIV Antigen-Antibody Nonreactive Nonreactive [facility] Comment:Performance characte ristics have not been established with this test on patients less than 2 years of age. Blood 01/07/2023 10:1 8 PM CDT 01/07/2023 10:46 PM CDT Sudhakar Koenig MD LABORATORY [facility] [address] [address] from Last 3 Months or Most Recently Relevant to Health Maintenance Guarantor Name Account Type Relation to Patient Date of Phone Billing Address Jennifer Tellez Personal/Family Self 1980 [address] [place] [address] Advance Directives For more information, please contact: [phone] * Full Code (Latest Code Status on [...]
--- OUTSIDE RECORDS SUMMARY | 2024-01-05 15:05 | XMS_ITS | Clinical Summary ---
Author Organization [facility] Address [address] [place] [address] Care Team Providers Care Neurological Surgeon Name Role Phone Kika [place] Primary Care [...] 08/05/2005, 08/05/2005, Additional history exists Care Teams Neurological Surgeon Relationship Specialty Start Date End Date Kika [place] PA [address] [place] [address] PCP - General 01/06/23
--- OUTSIDE RECORDS SUMMARY | 2024-01-05 15:05 | XMS_ITS | Clinical Summary ---
Author Organization [facility] Address [place], [place] [address] Care Team Providers Care Boarding Kennel Or Cattery Operator Name Role Phone Kika [place] Primary [...] Encounters Date Type Department Care Team Description 01/05/2024 1:20 PM CDT Telemedicine [facility] [address] [place] [address] Leonor Gurrola NP Telehealth (Virtual visit-no vitals taken) 01/05/2024 1:15 PM CDT Telemedicine [facility] [address] [place] [address] Leonor Gurrola NP Telehealth (Virtual visit-no vitals taken) 01/05/2024 Travel 01/04/2024 5:30 PM CDT Telemedicine [facility] [address] [place] [address] Oscar Cheatham PA Anxiety 01/04/2024 Orders Only [facility] Scanner 1 scan: (1-Ord) [facility], MR HEAD/BRAIN WO CONTRAST, 01/04/2024 01/04/2024 Orders Only [facility] Scanner 1 scan: (1-Ord) [facility], CERVICAL SPINE WO CON, 01/04/2024 01/04/2024 Travel 01/04/2024 Orders Only [facility] Scanner 1 scan: (1-Ord) [facility], HEAD, 01/04/2024 01/03/2024 Refill [facility] [address] [place] [address] Kika [place] PA Refill Request (Omeprazole) 01/02/2024 Refill [facility] [address] [place] [address] Kika [place] PA Refill Request (Senexon-s) 01/02/2024 Telephone [facility] [address] [place] [address] Rosibel Shen MD Medication Management (cyclobenzaprine (FLEXERIL) 10 mg tablet) 01/01/2024 4:10 PM CDT Telemedicine [facility] [address] [place] [address] Mee Lamar PA Referral (Vascular); Telehealth (No vitals) 01/01/2024 Orders Only [facility] Scanner 1 scan: (1-Ord) [facility], INTERLAMINAR CERVICAL EPIDUROGRAPHY and THERAPEUTIC INJ, C7-T1, W/ MODERATE CONSCIOUS SEDATION, 01/01/2024 01/01/2024 Travel 01/01/2024 Telephone [facility] [address] [place] [phone] Magaly Pittman MD 12/28/2023 2:30 PM CDT Telemedicine [facility] [address] [place] [phone] Rosibel Shen MD 12/26/2023 Nurse/Clinic Staff Only [facility] [address] [place] [address] Kika [place] PA Weight (Walk in weight check) 12/24/2023 Travel 12/22/2023 Telephone [facility] [address] [place] [address] Kika [place] PA Questions (Speak to a nurse ) 12/18/2023 Medical Messaging [facility] [address] [place] [address] Hector Baez MD Neck 12/13/2023 3:00 PM CDT Orders Only [address] [address] Lab, [facility] 12/12/2023 Travel 12/11/2023 3:20 PM CDT Telemedicine [facility] [address] [place] [address] Mee Lamar PA Fatigue 12/11/2023 Travel 12/07/2023 1:40 PM CDT Telemedicine [facility] [address] [place] [address] Hector Baez MD Musculoskeletal Problem (Follow up neck and back pain) 12/06/2023 Travel 11/09/2023 E-Visit [facility] [address] [place] [address] Rosibel Shen MD Tinea vercicolor 10/31/2023 7:50 AM CDT Telemedicine [facility] [address] [place] [address] Kika [place] PA Telehealth (MRI results); Medication Management (Changing muscle relaxer ) 10/31/2023 Orders Only [facility] [address] [place] [address] Rosibel Shen MD 1 scan: (1-Ord) [facility], CERVICAL SPINE, 10/26/2023 10/27/2023 Telephone [facility] [address] [address] Kika [place] PA Prior Authorization (Senexon-S 8.6-50 mg tablet (DENIED/EXCLUDED)) 10/26/2023 Travel 10/20/2023 Telephone [facility] [address] [place] [address] Rosibel Shen MD Referral ([facility] fax) 10/20/2023 Telephone [facility] [address] [place] [address] Rosibel Shen MD fax referral to [facility] 10/19/2023 2:00 PM CDT Telemedicine [facility] [address] [place] [address] Rosibel Shen MD 10/18/2023 Travel 10/17/2023 Orders Only [facility] [address] [place] [address] Kika [place] PA <No scans attached> 10/13/2023 Refill [facility] [address] [place] [address] Kika [place] PA Refill Request (Senexon-s, Cyclobenzaprine) [...] Sex Assigned at Female 05/21/2021 8:17 AM RIVETER PORTABLE MACHINE Gender Identity Female 05/21/2021 8:17 AM RIVETER PORTABLE MACHINE Sexual Orientation Straight 02/13/2021 3: 53 AM [...] ST Respiratory Rate 16 05/17/2023 7:50 AM RIVETER PORTABLE MACHINE Oxygen Saturation 98% 07/28/2023 10:27 AM RIVETER PORTABLE MACHINE Inhaled Oxygen Concentration - - Weight 121.6 kg (268 lb) 12/26/2023 12:28 PM CDT Height 180.3 cm (5' 11) 12/26/2023 12:28 PM CDT Body Mass Index 37.38 12/26/2023 12:28 PM CDT Plan of Treatment Upcoming Encounters Date Type Department Care Team (Late st Contact Info) Description 01/16/2024 7:50 AM CDT Telemedicine [facility] [address] [place] [address] Kika [place] PA [address] [place] [address] 02/19/2024 11:30 AM CDT Office Visit [facility] [address] [place] [phone] Magaly Pittman MD [address] [place] [address] 03/08/2024 11:00 AM CDT Telemedicine [facility] [address] [place] [address] Hector Baez MD [address] [place] [address] 03/20/2024 10:20 AM CDT Office Visit [facility] [address] [place] [address] Erin Pritchett PA [address] [place], [place] [id number] Health Maintenance Due Date Last Done Comments Pneumococcal series for age 6-64 (1 of 2 - PCV) 1986 Pap test for age 21-65 11/02/2019 7, 08/11/2014 (Completed outside of [facility]), 07/21/2009, Additional history exists COVID-19 vaccine series [...] CDT SCAN-MRI INTERPRETATION 01/04/2024 12:00 AM CDT SCAN-MRI [...] 10/26/2023 12:00 AM CDT Neck pain, acute PLATE SHEAR OPERATOR THIN PREP PAP SCREEN IMAGED Routine 11/01/2016 [...] 12:00 AM CDT) Only the most recent of3 resultswithin the time period is included. Anatomical Region Laterality Modality Other Scanner OTHER * SCAN-OPERATIVE/PROCEDURE REPORT (01/01/2024 12:00 AM CDT) Scanner OTHER * TSH WITH REFLEX (12/13/2023 1:30 PM CDT) TSH 1.60 0.27 - 4.20 uIU/mL 12/14/2023 5:44 PM CDT [facility] Blood BLOOD SPECIMEN / Unknown Venipuncture / Unknown 12/13/2023 1:30 PM CDT 12/13/2023 1:30 PM CDT Narrative [facility] - 12/14/2023 5:44 PM CDT In Adults, TSH values between 5.00 and 10.00 uIU/ml do not necessarily indicate the presence of Hypothyroidism. Correlation with clinical findings such as presence of goiter and/or Thyroperoxidase (TPO) Antibody may be helpful. For more information please refer to CAROLINA 2004; 291: 228-238. Mee ATKINS CHEMISTRY [facility] [address] [place] [address], * (ABNORMAL) VITAMIN D 25 (DEFICIENCY) (12/13/2023 1:30 PM CDT) VITAMIN D TOTAL 88.3(H) 20.0 - 80.0 ng/mL 12/14/2023 1:51 PM CDT [facility] Blood BLOOD SPECIMEN / Unknown Venipuncture / Unknown 12/13/2023 1:30 PM CDT 12/13/2023 1:30 PM CDT Narrative [facility] - 12/14/2023 1:51 PM CDT ? Vitamin D Status Deficiency: ? <20 ng/mL Insufficiency: ?20-29 ng/mL Sufficiency: ?30-80 ng/mL Possible Toxicity: ??>80 ng/mL Based on Severance of Medicine recommendations Biotin supplements may cause clinically significant interference for this test assay. ??If interference is suspected, it is strongly recommended that biotin is discontinued for at least one week prior to retesting. Mee ATKINS SEND OUTS [facility] [address] [place] [address], * (ABNORMAL) CBC W PLT NO DIFF (12/13/2023 1:30 PM CDT) WHITE BLOOD COUNT 11.5(H) 4.5 - 11.0 thou/cu mm 12/13/2023 1:32 PM CDT [facility] RED BLOOD COUNT 5.02 4.00 - 5.20 mil/cu mm 12/13/2023 1:32 PM CDT [facility] HEMOGLOBIN 13.6 12.0 - 16.0 g/dL 12/13/2023 1:32 PM CDT [facility] HEMATOCRIT 40.6 33.0 - 51.0 % 12/13/2023 1:32 PM CDT [facility] MCV 81 80 - 100 fL 12/13/2023 1:32 PM CDT [facility] MCH 27.1 26.0 - 34.0 pg 12/13/2023 1:32 PM CDT [facility] MCHC 33.5 32.0 - 36.0 g/dL 12/13/2023 1:32 PM CDT [facility] RDW 15.2 11.5 - 15.5 % 12/13/2023 1:32 PM CDT [facility] PLATELET COUNT 411 140 - 440 thou/cu mm 12/13/2023 1:32 PM CDT [facility] MPV 8.8 6.5 - 11.0 fL 12/13/2023 1:32 PM CDT [facility] Blood BLOOD SPECIMEN / Unknown Venipuncture / Unknown 12/13/2023 1:30 PM CDT 12/13/2023 1:30 PM CDT Mee ATKINS HEMATOLOGY [facility] [address] [place] [address], * FERRITIN (12/13/2023 1:30 PM CDT) FERRITIN 90.7 15.0 - 150.0 ng/mL 12/14/2023 1:50 PM CDT [facility] Blood BLOOD SPECIMEN / Unknown Venipuncture / Unknown 12/13/2023 1:30 PM CDT 12/13/2023 1:30 PM CDT Mee ATKINS CHEMISTRY [facility] [address] [place] [address], * (ABNORMAL) BASIC METABOLIC PANEL (12/13/2023 1:30 PM CDT) SODIUM 138 136 - 145 mmol/L 12/14/2023 1:50 PM CDT [facility] POTASSIUM 4.2 3.5 - 5.1 mmol/L 12/14/2023 1:50 PM CDT [facility] CHLORIDE 103 98 - 107 mmol/L 12/14/2023 1:50 PM CDT [facility] CO2,TOTAL 20(L) 22 - 29 mmol/L 12/14/2023 1:50 PM CDT [facility] ANION GAP 15 5 - 18 12/14/2023 1:50 PM CDT [facility] GLUCOSE 108(H) 70 - 99 mg/dL 12/14/2023 1:50 PM CDT [facility] CALCIUM 9.4 8.6 - 10.0 mg/dL 12/14/2023 1:50 PM CDT [facility] BUN 11 6 - 20 mg/dL 12/14/2023 1:50 PM CDT [facility] CREATININE 0.65 0.50 - 0.90 mg/dL 12/14/2023 1:50 PM CDT [facility] BUN/CREAT RATIO 17 10 - 20 1:50 PM CDT [facility] eGFR >90 >90 mL/min/1.7 3m2 12/14/2023 1:50 PM CDT [facility] Comment:As of 2021, eG [...] 12/13/2023 1:30 PM CDT Mee ATKINS CHEMISTRY [facility] [address] [place] [address], * MR SPINE CERVICAL WO (10/26/2023 12:00 AM CDT) Anatomical Region Laterality Modality Spine, CERVICAL SPINE Magnetic R esonance Rosibel Shen MD MR * PLATE SHEAR OPERATOR THIN PREP PAP SCREEN IMAGED (11/01/2016 2:40 PM CDT) Case Report Gynecologic Cytology Report ? Case: [id number] ? Authorizing Provider: ??Jodee Velazquez PA ?Collected: ? 11/01/2016 1440 ? Ordering Location: ? [facility] ?? Received: ?11/01/2016 1440 ? Clinic ? First Screen: ?Daniela Whelan ? Specimen: ?PLATE SHEAR OPERATOR ThinPrep Vial Screening, Cervical ? 11/08/2016 4:40 PM CDT [facility]- [facility]AL LAB[facility] INTERPRETATION/ RESULT NEGATIVE FOR INTRAEPITHELIAL LESION OR MALIGNANCY (NIL) (none) 11/08/2016 4:40 PM CDT [facility] ENTRAL LABORAT[facility] IMEN ADEQUACY Satisfactory for evaluation No endocervical component seen 11/08/2016 4:40 PM CDT [facility] EN[facility]AL [facility] HPV REQUEST HPV if ASCUS 11/08/2016 4:40 PM CDT [facility] LABORATORY-C ENTRAL LABORATORY Date of LMP 10/18/16 11/08/2016 4:40 PM CDT [facility] LABORAT[facility] ENTRAL LABORATORY Last Pap Date May 2014 11/08/2016 4:40 PM CDT [facility]- ENTRAL LABORAT[facility] Last Pap Result NIL 7 4:40 PM CDT [facility]- ENTRAL LAB[facility]ATORY Abnormal Pap or [place] Bx in last 5 years No 11/08/2016 4:40 PM CDT [facility] EN[facility]ORY Menstrual Status Regular Periods 11/08/2016 4:40 PM CDT [facility] [place] Bx Done Today No 11/08/2016 4:40 PM CDT [facility] Additional Information None given 11/08/2016 4:40 PM CDT [facility] LAB[facility]AT[facility] Automated Review Successful 11/08/2016 4:40 PM CDT [facility] Comment:Specimen processed s uccessfully by automated electrical apprentice device, Stream[employer] Imaging System, [employer] Note The pap test is a screening technique, not a diagnostic procedure. ??It is used primarily to screen for squamous cancers and precursor lesions. ??Published studies have shown that it is subject to both false negative and false positive results. ??The pap test should not be used as the sole means to diagnose or exclude pre-malignant and malignant lesions. Interpreted at [facility] ([facility], [facility], [facility], [facility], [facility], [facility], [facility]) 11/08/2016 4:40 PM CDT [facility] Other (Cervical) 11/01/2016 2:40 PM CDT 11/01/2016 2:40 PM CDT Jodee ATKINS PATHOLOGY/CYTOLOGY Performing Organization Address City/State/[facility] Co de Phone Number [facility] [address] [place] [address], * ANTI HCV (11/01/2016 2:38 PM CDT) HEPATITIS C ANTIBODY Non-Reacti ve Non-Reacti ve 11/01/2016 8:25 PM CDT [facility] Blood BLOOD SPECIMEN / Unknown Venipuncture / Unknown 11/01/2016 2:38 PM CDT 11/01/2016 2:38 PM CDT N[facility]ative [facility] - 11/01/2016 8:25 PM CDT Antibodies to HCV not detected; does not exclude the possibility of exposure to HCV. Jodee ATKINS SEND OUTS [facility] [address] [place] [address], [place] * ANTI HIV 1/2 (11/01/2016 2:38 PM CDT) HIV-1/HIV-2 ANTIBODY Non-Reacti ve Non-Reacti ve 11/01/2016 8:26 PM CDT [facility] Blood BLOOD SPECIMEN / Unknown Venipuncture / Unknown 11/01/2016 2:38 PM CDT 11/01/2016 2:38 PM CDT Narrative [facility] - 11/01/2016 8:26 PM CDT HIV-1 p24 and HIV-1/HIV-2 Ab not detected Jodee ATKINS SEND OUTS [facility] [address] [place] [address], from Last 3 Months or Most Recently [...] Preferences, Provider to review later Care Teams Boarding Kennel Or Cattery Operator Relationship Specialty Start Date End Date Kika [place] PA [address] [place] [address] PCP - General Physician Manufacturing Engineering Director 02/11/21
[2024-01-05 15:18] LABS: Basophils Percent Auto 0.4 % (0.0-3.0); Hematocrit 39.6 % (33.0-51.0); Hemoglobin* 12.6 gm/dL (12.0-16.0); Immature Granulocytes Pct Auto 1.9 %; Mean Corpuscular HGB Conc 32 gm/dL (32-36); Mean Corpuscular Hemoglobin 26 pg (26-34); Mean Corpuscular Volume 83 fL (80-100); Monocytes Percent Auto 6.1 % (0.0-11.0); Neutrophils Percent Auto 62.6 % (42.0-72.0); Platelet Count* 346 K/uL (140-440); RDW Coefficient of Variation % 15.2 % (11.5-15.5); White Blood Count* 19.63 K/uL (4.50-11.00)
[2024-01-05] MEDS: BENZTROPINE MESYLATE 2 MG/2 ML INJ 1 MG IM (15:23)
[2024-01-05 15:29] LABS: Chloride* 102 mmol/L (96-114)
[2024-01-05 15:30] LABS: Potassium* 3.3 mmol/L (3.6-5.1); Sodium* 137 mmol/L (135-149)
[2024-01-05 15:32] LABS: Creatinine* 0.8 mg/dL (0.5-1.5); Est. Creatinine Clearance* 101.34; Estimated Glomerular Filt Rate 94 ml/min
[2024-01-05 15:33] LABS: Anion Gap 9 mEq/L (7-15); Blood Urea Nitrogen* 16 mg/dL (5-24); Calcium* 8.8 mg/dL (8.4-10.6); Carbon Dioxide* 26 mmol/L (20-32); Glucose* 88 mg/dL (60-115)
[2024-01-05 15:52] LABS: Slide Review Reflex No
[2024-01-05 16:28] VITALS: BP 135/90; PULSE 95; RESP 16; TEMP 36.5
== END 2024-01-05 16:29 | disposition home or self-care (01) ==
PROVIDERS: Emergency Provider Student in an Organized Health Care Education/Training Program; PCP Physician Assistant Medical
DX: G24.02 Drug induced acute dystonia (principal)
CPT/HCPCS: 36415; 80048; 85025; 96372; 99283; 99284; J0515

== ENCOUNTER 2024-06-24 10:10 | Outpatient (RCR) | payer MEDICARE, OTHER, SELFPAY | END 2024-10-22 23:59 | disposition home or self-care (01) | PROVIDERS: PCP Physician Assistant Medical; Visit Provider Physician Assistant Medical | DX: M54.2 Cervicalgia (principal); R51.9 Headache, unspecified; M62.838 Other muscle spasm; M54.9 Dorsalgia, unspecified; R53.1 Weakness; Z51.89 Encounter for other specified aftercare | CPT/HCPCS: 97110; 97161 ==

== ENCOUNTER 2024-08-24 13:22 | Emergency (ER) | payer MEDICARE, OTHER, SELFPAY ==
--- OUTSIDE RECORDS SUMMARY | 2024-08-24 13:24 | XMS_ITS | Referral Summary ---
Author Organization [facility] Address [address] [place] [address] Care Team Providers Care Director Of Women'S Services Name Role Phone Kika Johnston Primary Care Provider Allergies Active Allergy Reactions Criticality Noted Date Comments Cephalexin 01/10/2012 Penicillins 01/10/2012 Shellfish Containing Products Anaphylaxis High 12/18 Medications IPRATROPIUM/ALB UTEROL SULFATE (IPRATROPIUM-AL BUTEROL INHL) by Inhalation route. Active Social History Tobacco Use Types Packs/Day Years Used Date Smoking Tobacco: Every Day Cigarettes Alcohol Use Standard Drinks/Week Comments Yes 0 (1 standard drink = 0.6 oz pur e alcohol) Comments Unknown Sex and Gender Information Value Date Recorded Sex Assigned at Not on file Legal Sex Female 1:31 PM CDT Gender Identity Not on file Sexual Orientation Not on file Last Filed Vital Signs Vital Sign Reading Time Taken Comments Blood Pressure 127/75 01/06/2023 12:25 PM CDT Pulse 84 01/06/2023 12:25 PM CDT Temperature 36.7 C (98.1 F) 01/06/2023 12:25 PM CDT Respiratory Rate 16 01/06/2023 12:25 PM CDT Oxygen Saturation 97% 01/06/2023 12:25 PM CDT Inhaled Oxygen Concentration - - Weight - - Height - - Body Mass Index - - Plan of Treatment Not on file Insurance [facility] MEDICARE ADVANTAGE MEDICA SNBC/MSC Care Teams Director Of Women'S Services Relationship Specialty Start Date End Date Kika Johnston PA [address] [place] [address] PCP - General 01/06/23
--- OUTSIDE RECORDS SUMMARY | 2024-08-24 13:24 | XMS_ITS | Clinical Summary ---
Author Organization [facility] Address [address] [place] [address] Care Team Providers Care Soaping Department Supervisor Name Role Phone Kika Johnston Primary Care [...] (JOSUE-2) 1981 Depression Assessment (PHQ-2) 1981 Pneumococcal Vaccine (1 of 2 - PCV) 1999 COVID-19 Vaccine (1 - 2023-2 5 season) 2024 Influenza Vaccine (#1) 2024 02/18/2017, 2014 Adult Tetanus Booster 04/15/2024 04/15/2014 , 08/05/2005, 08/05/2005, Additional history exists RSV Vaccines (1 - 1-dose 75+ series) 2055 Insurance [facility] MEDICARE ADVANTAGE MEDICA SNBC/MSC Care Teams Soaping Department Supervisor Relationship Specialty Start Date End Date Kika Johnston PA [address] [place] [address] PCP - General 01/06/23
--- OUTSIDE RECORDS SUMMARY | 2024-08-24 13:24 | XMS_ITS | Clinical Summary ---
Author Organization [facility] Address [address] [place] [address] Care Team Providers Care Voucher Examiner Name Role Phone Kika Johnston Primary Care Provider Allergies Active Allergy Reactions Criticality Noted Date Comments Baclofen Other - Describe In Comment Field 01/23/2024 Addiction Cephalexin Rash Medium 08/23/2006 Penicillins Rash Medium 08/23/2006 Shellfish Containing Products Anaphylaxis High 12/19/2007 Medications EPINEPHrine (EPIPEN) 0.3 mg/0.3 mL auto-injector Inject 0.3 mg intramuscular each time if needed for Allergic Reaction. 023 Active terbinafine (LAMISIL) 1 % creamIndications: Tinea Apply topically to affected area(s) two times daily. 28.4 g 1 024 Active hydrOXYzine pamoate (VISTARIL) 50 mg capsule 024 Active mirtazapine (REMERON) 15 mg tablet Take 15 mg by mouth at bedtime. 024 Active Ingrezza 40 mg capsule 024 Active Senexon-S 8.6-50 mg tabletIndications :Constipation, unspecified constipation type TAKE 1 TO 2 TABLETS BY MOUTH TWICE A DAY 180 Tablet 5 024 Active acetaminophen (TYLENOL EXTRA STRGTH) 500 mg tablet Take 1,000 mg by mouth every 6 hours if needed. Active venlafaxine (EFFEXOR XR) 75 mg cp24 Extended-Release capsule Take 75 mg by mouth once daily with a meal. 024 Active loratadine (CLARITIN) 10 mg tabletIndications :Allergic rhinitis due to pollen, unspecified seasonality Take 1 Tablet (10 mg) by mouth once daily. 90 Tablet 3 024 Active ferrous sulfate, 65 mg elemental, (FeroSuL) tabletIndications :Iron deficiency anemia, unspecified iron deficiency anemia type Take 1 Tablet (325 mg) by mouth once daily with a meal. 90 Tablet 3 024 Active cholecalciferol (Vitamin D-3) 2,000 unit capsuleIndication s:Vitamin D deficiency Take 1 Capsule (2,000 units) by mouth once daily. 90 Capsule 3 024 Active omeprazole (PRILOSEC) 20 mg Delayed-Release capsuleIndication s:Gastroesophagea l reflux disease, unspecified whether esophagitis present Take 1 Capsule (20 mg) by mouth two times daily before meals. Dose increase. 180 Capsule 1 025 Active polyethylene glycoL (MIRALAX) 17 gram/scoop powderIndications :Chronic constipation MIX 1 CAPFUL (17GRAMS) IN LIQUID DIRECTED & THEN TAKE BY MOUTH ONCE DAILY 1530 g 3 025 Active lisdexamfetamine (VYVANSE) 40 mg capsule Take 1 Capsule by mouth once daily. 025 Active lidocaine 5 % topical patchIndications: Other chronic pain,Hip pain, right Apply 1 Patch on dry, clean, hairless skin once daily. 30 Patch 3 025 Active valACYclovir 1 gram tabletIndications :Genital herpes simplex, unspecified site TAKE 1 TABLET BY MOUTH DAILY * INCREASE TO 1 TABLET TWICE A DAY FOR OUTBREAKS* 100 Tablet 2 025 Active ondansetron 4 mg disintegrating tabletIndications :Nausea Place 1 Tablet (4 mg) on the tongue every 8 hours if needed for Nausea/Vomiting . 30 Tablet 2 025 Active pregabalin 150 mg capsuleIndication s:Other chronic pain,Upper back pain,Hip pain, right,DDD (degenerative disc disease), cervical,Muscle spasm Take 1 Capsule (150 mg) by mouth two times daily. 60 Capsule 1 03/25/2 025 Active meloxicam 15 mg tabletIndications :Other chronic pain,Upper back pain,Hip pain, right,DDD (degenerative disc disease), cervical,Muscle spasm Take 1 Tablet (15 mg) by mouth once daily. 30 Tablet 1 Active cyclobenzaprine 10 mg tabletIndications :Upper back pain,Muscle spasm Take 1 Tablet (10 mg) by mouth 2 times daily if needed for Muscle Spasm. 30 Tablet 3 Active polyethylene glycoL (MIRALAX) 17 gram/scoop powderIndications :Chronic constipation Mix 1 scoop (17 g) in liquid then take by mouth once daily. 850 g 5 024 2024 Discontinued busPIRone (BUSPAR) 5 mg tablet Take 5 mg by mouth three times daily. 024 2024 Discontinued(* Med complete/Regim en complete/Level of care change) ibuprofen (ADVIL; MOTRIN) 600 mg tablet Take 600 mg by mouth every 6 hours if needed. 024 2024 Discontinued(* Med complete/Regim en complete/Level of care change) gabapentin (NEURONTIN) 100 mg capsuleIndication s:Upper back pain,Muscle spasm,Chronic bilateral low back pain, unspecified whether sciatica present Take 2 Capsules (200 mg) by mouth four times daily. 720 Capsule 1 024 2024 Discontinued valACYclovir (VALTREX) 1 gram tabletIndications :Genital herpes simplex, unspecified site TAKE 1 TABLET BY MOUTH DAILY * INCREASE TO 1 TABLET TWICE A DAY FOR OUTBREAKS* 100 Tablet 2 024 2024 Discontinued(R eorder (E-cancel not sent)) lidocaine 5 % topical patchIndications: Other chronic pain,Hip pain, right Apply 1 Patch on dry, clean, hairless skin once daily. 30 Patch 024 2024 Discontinued(R eorder (E-cancel not sent)) methocarbamoL 500 mg tabletIndications :Muscle spasm,Upper back pain,Nonintractab le headache, unspecified chronicity pattern, unspecified headache type Take 1 Tablet (500 mg) by mouth three times daily. 21 Tablet 5 025 2024 Discontinued diclofenac (VOLTAREN) 75 mg delayed-release tabletIndications :Muscle spasm,Upper back pain,Nonintractab le headache, unspecified chronicity pattern, unspecified headache type TAKE ONE TABLET BY MOUTH TWICE A DAY WITH MEALS 180 Tablet 1 025 2024 Discontinued(* Patient states no longer taking) lisdexamfetamine (Vyvanse) 20 mg capsule Take 1 Capsule (20 mg) by mouth once daily in the morning. 025 2024 Discontinued(* Med complete/Regim en complete/Level of care change) ondansetron (ZOFRAN ODT) 4 mg disintegrating tabletIndications :Nausea Place 1 Tablet (4 mg) on the tongue every 8 hours if needed for Nausea/Vomiting . 30 Tablet 2 025 2024 Discontinued(R eorder (E-cancel not sent)) phentermine (ADIPEX-P) 37.5 mg tabletIndications :Class 2 severe obesity with body mass index (BMI) of 35 to 39.9 with serious comorbidity (HC) Take 1 Tablet (37.5 mg) by mouth once daily before a meal. 30 Tablet 025 2024 Discontinued(* Patient states no longer taking) methocarbamoL 500 mg tabletIndications :Muscle spasm,Upper back pain,Nonintractab le headache, unspecified chronicity pattern, unspecified headache type TAKE ONE TABLET BY MOUTH THREE TIMES A DAY 21 Tablet 5 025 2024 Discontinued(* Med complete/Regim en complete/Level of care change) methylPREDNISolon e (Medrol, Rosalse,) 4 mg tabletIndications :Cervical radiculopathy Take by mouth as instructed per packaging. 21 Tablet 025 2024 Discontinued(* Patient states no longer taking) gabapentin (NEURONTIN) 100 mg capsuleIndication s:Upper back pain,Muscle spasm,Chronic bilateral low back pain, unspecified whether sciatica present TAKE 2 CAPSULES BY MOUTH 4 TIMES DAILY 720 Capsule 025 2024 Discontinued(* Med complete/Regim en complete/Level of care change) celecoxib (CELEBREX) 100 mg capsuleIndication s:Upper back pain,DDD (degenerative disc disease), cervical Take 1 Capsule (100 mg) by mouth two times daily with meals. 60 Capsule 025 2024 Discontinued(* Patient states no longer taking) pregabalin (LYRICA) 75 mg capsuleIndication s:Other chronic pain,Upper back pain,DDD (degenerative disc disease), cervical Take 1 Capsule (75 mg) by mouth two times daily. 60 Capsule 1 025 2024 Discontinued(* Medication adjustment) Active Problems Problem Noted Date Diagnosed Date Addiction to drug 01/23/2024 Overview (01/23/2024): Muscle relaxants Other osteonecrosis, left femur 10/31/2023 Obesity, morbid [...] recurrent 07/26/2017 Substance abuse in remission 07/12/2017 Overview (05/12/2023): Overview: Alcohol, Meth, MJ, Adderall Eating disorder 12/27/2016 Bipolar II disorder, severe, depressed, with mixed features, in partial remission 12/18/2016 Recurrent major depression in full remission Genital herpes 09/17/2014 Chemical dependency 07/29/2014 Overview (09/17/2014): Alcohol, meth, Adderall Tobacco use 07/29/2014 Generalized [...] Encounters Date Type Department Care Team Description 08/22/2024 2:40 PM CDT Telemedicine [facility] [address] [place] [address] Hector Baez MD Musculoskeletal Problem (Follow up neck pain ) 08/22/2024 Travel 08/21/2024 2:20 PM CDT Telemedicine [facility] [address] [place] [address] Kika Johnston PA Telehealth (Med check - would like to stop the methocarbamol and fill flexeril again ) 08/21/2024 Travel 08/20/2024 Travel 08/17/2024 Travel 08/13/2024 8:50 AM CDT Telemedicine [facility] [address] [place] [address] Kika Johnston PA Telehealth (Med check - lyrica) 08/13/2024 Travel 08/04/[address] [address] Kika Johnston PA Refill Request (Valacyclovir) 08/01/2024 8:10 AM CDT Telemedicine [facility] [address] [place] [address] Kika Johnston PA Telehealth (Increased Nerve pain , would like to discuss options); Concerns (Had endoscopy yesterday, found out she had a hiatal hernia) 07/31/2024 Travel 07/30/2024 Telephone [facility] [address] [place] [address] Kika Johnston PA Questions (Billing Questions ) 07/27/[address] [address] Kika Johnston PA Refill Request (Gabapentin) 07/25/2024 Refill [facility] [address] [place] [address] Kika Johnston PA Refill Request (Polyethylene Glycol, Methocarbamol) 07/24/2024 8:10 AM RUSSIAN HISTORY PROFESSOR Telemedicine [facility] [address] [place] [address] Kika Johnston PA Telehealth (Phentermine , weighed herself this morning 265.8 lbs, wondering if she can increase to full tab) 07/22/2024 Travel 07/16/2024 Medical Messaging [facility] [address] [place] [address] Kika Johnston PA EGD 07/10/2024 11:30 AM RUSSIAN HISTORY PROFESSOR Telemedicine [facility] [address] [place] [address] Kika Johnston PA Telehealth (Heartburn that has gotten worse - has been taking 40 mg of omeprazole and tums) 07/10/2024 Refill [facility] [address] [place] [address] Kika Johnston PA Refill Request (Ondansetron) 07/09/2024 Orders Only [facility] Scanner 1 scan: (1-Ord) [facility], FLUOROSCOPICALLY GUIDED THERAPEUTIC C7-T1 INTERLAMINAR CERVICAL EPIDURAL INJECTION, 07/09/2024 07/07/2024 Travel 07/06/2024 3:45 PM RUSSIAN HISTORY PROFESSOR Telemedicine [facility] [address] [place] [address] Jose Montero MD 07/06/2024 Travel 07/01/2024 2:40 PM RUSSIAN HISTORY PROFESSOR Telemedicine [facility] [address] [place] [address] Kika Johnston PA Telehealth (Would like to discuss getting prescription for phentermine, is planning to start an exercise plan) 06/28/2024 Refill [facility] [address] [place] [address] Kika Johnston PA Refill Request (Diclofenac) 06/27/2024 10:00 AM RUSSIAN HISTORY PROFESSOR Telemedicine [facility] [address] [place] [address] Hector Baez MD Musculoskeletal Problem (Follow up neck pain) 06/27/2024 Travel 06/26/2024 8:00 AM RUSSIAN HISTORY PROFESSOR Procedure Only [facility] [address] [place] [address] Alex Thompson L Ac Acupuncture 06/26/2024 Travel 06/23/2024 Travel 06/17/2024 11:00 AM RUSSIAN HISTORY PROFESSOR Procedure Only [facility] [address] [place] [address] Alex Thompson L Ac Acupuncture 06/17/2024 Travel 06/13/2024 Refill [facility] [address] [place] [address] Kika Johnston PA Refill Request (Methocarbamol) 06/12/2024 Travel 06/10/2024 11:00 AM RUSSIAN HISTORY PROFESSOR Procedure Only [facility] [address] [place] [address] Alex Thompson L Ac Acupuncture 06/09/2024 Travel 05/31/2024 Telephone [facility] [address] [place] [address] Alex Thompson L Ac FYI (insurance) 05/31/2024 Travel from Last 3 Months Immunizations Immunization Administration Dates Next Due COVID-19 vaccine (Moderna [...] 03/22/2015 Smokeless Tobacco: Never Tobacco Cessation:Counseling Given: No Alcohol Use Standard Drinks/Week Comments No 0 (1 standard drink = 0.6 oz pure alcohol) recovering from alcohol abuse; sober since January 2015 PHQ-2 Answer Date Recorded PHQ-2 TOTAL SCORE 3 05/13/2023 Social Connections Answer Date Recorded Do you often feel lonely or isolated from those around you? 0 05/24/2023 Financial Resource Strain Answer Date R ecorded Difficulty of Paying Living Expenses 3 05/13/2023 Difficulty of Paying Living Expenses Not on file 05/13/2023 Food Insecurity Answer Date Recorded Do you worry your food will run out before you are able to buy more? 1 05/24/2023 Transportation Needs Answer Date Record ed Does lack of transportation keep you from medica l appointments? 1 05/24/2023 Does lack of transportation keep you from work, meetings or getting things that you need? 1 05/24/2023 Housing Stability Answer Date Recorded What is your housing situation today? 1 05/24/2023 Interpersonal Safety Answer Date Record ed Are you being hit, kicked, p ushed or yelled at (see row info)? No 05/13/2023 Interpersonal Safety Abuse 12 - 18 Not on file 05/13/2023 Interpersonal Safety Ambulatory Vulnerability No t on file 05/13/2023 Utilities Answer Date Recorded Do you have trouble paying f or utilities (for example, heat, electricity, water, phone)? 1 05/24/2023 Comments No Sex and Gender Information Value Date Recorded Sex Assigned at Female 05/21/2021 8:17 AM RUSSIAN HISTORY PROFESSOR Legal Sex Female 5:18 AM RUSSIAN HISTORY PROFESSOR Gender Identity Female 05/21/2021 8:17 AM RUSSIAN HISTORY PROFESSOR Sexual Orientation Straight 02/13/2021 3: 53 AM CDT Occupation Industry Job Start Date Job End Date unemployed Not on file Not on file Not on file Obstetrics History Para Term AB IAB SAB Ectopic Multiple Livin g Live Births 3 2 2 1 1 2 Date Outcome GA Total Labor Labor/2nd/3rd Weight Sex Type Anes PTL Yolande A1 A5 Name Clin Term Term SAB Last Filed Vital Signs Vital Sign Reading Time Taken Comments Blood Pressure 129/79 02/21/2024 11:15 AM CDT Pulse 69 02/21/2024 11:15 AM CDT Temperature 36.7 C (98.1 F) 07/28/2023 10:27 AM RUSSIAN HISTORY PROFESSOR Respiratory Rate 12 02/19/2024 11:23 AM CDT Oxygen Saturation 98% 02/19/2024 11:23 AM CDT Inhaled Oxygen Concentration - - Weight 119.7 kg (264 lb) 02/21/2024 11:15 AM CDT Height 180.3 cm (5' 11) 12/26/2023 12:28 PM CDT Body Mass Index 36.82 12/26/2023 12:28 PM CDT Plan of Treatment Upcoming Encounters Date Type Department Care Team (Late st Contact Info) Description 08/30/2024 8:30 AM CDT Telemedicine [facility] [address] [place] [address] Kika Johnston PA [address] [facility] [place] [address] Health Maintenance Due Date Last Done Comments Pneumococcal series for age 6-49 (1 of 2 - PCV) 1999 Pap test for age 21-65 11/02/2019 7, 08/11/2014 (Completed outside of [facility]), 07/21/2009, Additional history exists COVID-19 vaccine series ( season) 2024 02/12/2024, 02/21/2022, 12/07/2021, Additional history exists Depression screening for age 12+ 05/16/2024 05/16/2023, 05/12/2023, 03/02/2023, Additional history exists BMI (ht and wt on same day) for age 18+ 12/25/2024 12/26/2023, 07/12/2023, 04/05/2023, Additional history exists Influenza Vaccine (Season Ended) 2025 02/13/2023, 02/21/2022, 01/24/2019, Additional history exists Tetanus booster 01/24/2029 01/24/2019, 03/23, 08/05/2005, Additional history exists Tdap Completed 04/15/2014, 08/05/2005 HIV for age 15-65 Completed 11/01/2016, , 09/23/2008 Hepatitis C screening for ag e 18-79 Completed 11/01/2016, 07/21/2009, 09/23/2008 Procedures Procedure Name Priority Date/Time Associated Diagnosis Comments AMB CONSULT TO GASTROENTEROLOGY Routine 08/02/2024 8:03 PM CDT Gastroesophageal reflux disease, unspecified whether esophagitis present SCAN-OPERATIVE/PROCEDURE REPORT 07/31/2024 1:30 PM CDT AMB CONSULT TO GASTROENTEROLOGY Routine 07/23/2024 8:14 PM RUSSIAN HISTORY PROFESSOR Gastroesophageal reflux disease, unspecified whether esophagitis present SCAN-OPERATIVE/PROCEDURE REPORT 07/09/2024 12:00 AM RUSSIAN HISTORY PROFESSOR ACUPUNCTURE PLAN OF CARE Routine 025 7:46 AM RUSSIAN HISTORY PROFESSOR Other low back pain ACUPUNCTURE PLAN OF CARE Routine 01/27/2 025 10:46 AM RUSSIAN HISTORY PROFESSOR Other low back pain ACUPUNCTURE PLAN OF CARE Routine 025 7:54 AM RUSSIAN HISTORY PROFESSOR Other low back pain POMOLOGY TEACHER THIN PREP PAP SCREEN IMAGED Routine 11/01/2016 2:40 PM CDT Screening for malignant neoplasm of cervix ANTI HIV 1/2 Routine 11/01/2016 2:38 PM CDT Screen for STD (sexually transmitted disease) ANTI HCV Routine 11/01/2016 2:38 PM CDT Screen for STD (sexually transmitted disease) from Last 3 Months or Most Recently Relevant to Health Maintenance Results * SCAN-OPERATIVE/PROCEDURE REPORT (07/31/2024 1:30 PM CDT) Narrative Procedure Note Vanessa Nogueira MD - 07/31/2024 12:32 PM CDT [address], [address], [place] [id number] Patient Name: Jennifer Tellez Gender: Female Exam Date: 07/31/2024 Visit Number: [id number] Age: 44 Years Date of : 1980 Attending MD: Vanessa Nogueira MD Medical Record#: [id number] ----- Procedure: Upper GI Endoscopy Indications: Reflux Provider: Vanessa Nogueira MD Referring MD: Referral Self Primary MD: Kika ATKINS Medications: Admitting Medication: 0.9% Normal Saline at TKO Intra Procedure Medications: Patient received monitored anesthesia care. Complications: No immediate complications Procedure: An examination of the heart and lungs was performed within acceptablelimits. . The patient was therefore deemed a reasonable candidate forsedation. The risks and benefits were explained to the patient, who appeared tounderstand. After obtaining informed consent, the scope was passed underdirect vision. Throughout the procedure the patient's blood pressure,pulse and oxygen saturations were monitored. The scope was introducedthrough the mouth and advanced to the second portion of duodenum. Findings: Esophagus: The z-line is 40 centimeters from the incisors. Top of the gastric foldsis 40 centimeters from the incisors. *Esophagus Comments: Slightly irregular GE junction. Bx attained fromthe distal esophagus. Stomach: H. Pylori biopsies taken. The diaphragm hiatus is at 44 centimeters from the incisors. Medium Hiatal Hernia. Normal mucosa. Gastritis. Location - body - antrum. Description - diffuse erythema,edema. H. Pylori biopsies taken. Duodenum: Normal duodenum. Celiac Sprue biopsies taken. Celiac Sprue biopsies taken. Impression: Chronic GERD Hiatal hernia Pathology Results: A: DUODENUM, BIOPSY: 1. Normal duodenal mucosa 2. Negative for celiac disease and other enteropathy B: STOMACH, BIOPSY: 1. Non-erosive reactive gastropathy (see comment) a. Sampling: Antrum and body mucosae b. Distribution: Antrum and body mucosae 2. Negative for inflammation, atrophy and Helicobacter C: ESOPHAGUS, DISTAL, BIOPSY: 1. Normal esophageal squamous mucosa 2. Gastric cardia type mucosa with no diagnostic abnormalities 3. Negative for reflux changes and eosinophilic esophagitis 4. Negative for intestinal metaplasia and dysplasia COMMENTS B. The likely etiology is an ongoing non-inflammatory type mucosal injurydue to a chemical type of injury; this may be due to ingestion ofnon-steroidal anti-inflammatory drugs, aspirin (via prostaglandin-mediatedinjury), excess alcohol, corticosteroids, or bile/alkaline reflux, thelatter usually in the setting of a gastroenteric anastomosis. MICROSCOPIC A: Performed B: Performed C: Performed Electronically signed by: Bryan Li MD Interpreted at [facility], [address] [place] [id number] _Electronically signed by: Vanessa Nogueira MD 07/31/2024 cc: Kika ATKINS us Vanessa Nogueira MD OTHER Final Result * SCAN-OPERATIVE/PROCEDURE REPORT (07/09/2024 12:00 AM RUSSIAN HISTORY PROFESSOR) us Scanner OTHER Final Result * POMOLOGY TEACHER THIN PREP PAP SCREEN IMAGED (11/01/2016 2:40 PM CDT) Case Report Gynecologic Cytology Report Case: [id number] Authorizing Provider: Jodee Velazquez PA Collected: 11/01/2016 1440 Ordering Location: [facility] Received: 11/01/2016 1440 Clinic First Screen: Daniela Whelan Specimen: POMOLOGY TEACHER ThinPrep Vial Screening, Cervical 11/08/2016 4:40 PM CDT [facility] INTERPRETATION/ RESULT NEGATIVE FOR INTRAEPITHELIAL LESION OR MALIGNANCY (NIL) (none) 11/08/2016 4:40 PM CDT [facility] [employer] ENTRAL LABORATORY at 1640 CDT SPECIMEN ADEQUACY Satisfactory for evaluation No endocervical component seen 11/08/2016 4:40 PM CDT [facility] [employer] ENTRAL LABORATORY HPV REQUEST HPV if ASCUS 11/08/2016 4:40 PM CDT [facility] [employer] ENTRAL LABORATORY Date of LMP 10/18/16 11/08/2016 4:40 PM CDT [facility] [employer] ENTRAL LABORATORY Last Pap Date May 2014 11/08/2016 4:40 PM CDT [facility] [employer] ENTRAL LABORATORY Last Pap Result NIL 7 4:40 PM CDT [facility] Abnormal Pap or Sterling Bx in last 5 years No 11/08/2016 4:40 PM CDT [facility] [employer] ENTRAL LABORATORY Menstrual Status Regular Periods 11/08/2016 4:40 PM CDT [employer] ENTRAL LABORATORY [place] Bx Done Today No 11/08/2016 4:40 PM CDT [facility] [employer] ENTRAL LABORATORY Additional Information None given 11/08/2016 4:40 PM CDT [facility] ENTRAL LABORATORY Automated Review Successful 11/08/2016 4:40 PM CDT [facility] ENTRWA LABORATORY Comment:Specimen processed s uccessfully by automated labor arbitrator hearing office device, [employer], [employer] Note The pap test is a screening technique, not a diagnostic procedure. It is used primarily to screen for squamous cancers and precursor lesions. Published studies have shown that it is subject to both false negative and false positive results. The pap test should not be used as the sole means to diagnose or exclude pre-malignant and malignant lesions. Interpreted at [facility] ([facility], [facility], [facility], [facility], [facility], [facility], [facility]) 11/08/2016 4:40 PM CDT [facility] EN[facility]WA LABOR[facility]ORY Other (Cervical) 11/01/2016 2:40 PM CDT 11/01/2016 2:40 PM CDT Jodee ATKINS PATHOLOGY/CYTOLOGY Final R esult [facility] [address] [place] [address], [place] * ANTI HCV (11/01/2016 2:38 PM CDT) HEPATITIS C ANTIBODY Non-Reacti ve Non-Reacti ve 11/01/2016 8:25 PM CDT [facility] TRAL LABORATORY Blood BLOOD SPECIMEN / Unknown Venipuncture / Unknown 11/01/2016 2:38 PM CDT 11/01/2016 2:38 PM CDT Narrative [facility] - 11/01/2016 8:25 PM CDT Antibodies to HCV not detected; does not exclude the possibility of exposure to HCV. Jodee ATKINS SEND OUTS Final Resu lt [facility] [address] [place] [address], [place] * ANTI HIV 1/2 (11/01/2016 2:38 PM CDT) HIV-1/HIV-2 ANTIBODY Non-Reacti ve Non-Reacti ve 11/01/2016 8:26 PM CDT [facility] TRAL LABORATORY Blood BLOOD SPECIMEN / Unknown Venipuncture / Unknown 11/01/2016 2:38 PM CDT 11/01/2016 2:38 PM CDT Narrative [facility] - 11/01/2016 8:26 PM CDT HIV-1 p24 and HIV-1/HIV-2 Ab not detected us Jodee ATKINS SEND OUTS Final Resu lt [facility] [address] [place] [address], from Last 3 Months or Most Recently Relevant to Health Maintenance Insurance [facility] ATTN: [place] [address] MEDICARE PART A HB ONLY MEDICARE PART B HB ONLY [facility] MR HB ONLY [facility] MEDICA PMAP HB ONLY [facility] MR [employer] [facility] ATTN: [place] [address] Advance Directives Documents on File Type Date Recorded Patient Cat Skinner Expl anation Healthcare Directive 04/16/2024 3:07 PM H ealthcare Directive * Full Code (Latest Code Status on File) Date Activated Date Inactivated Comments 05/13/2023 9:46 AM 05/17/2023 12:39 PM Question Answer Comments Code Status Discussion: Unable to Assess Preferences, Provider to review later * Full Code Date Activated Date Inactivated Comments 04/12/2023 12:08 PM 04/12/2023 9:37 PM Question Answer Comments Code Status Discussion: Unable to Assess Preferences, Provider to review later Care Teams Voucher Examiner Relationship Specialty Start Date End Date Kika Johnston PA [address] [place] [address] PCP - General Physician Material Requisitioner 02/11/21
[2024-08-24 13:25] VITALS: BP 139/82; PULSE 99; RESP 20; TEMP 36.6; O2SAT 97; BMI 37.0
--- NOTE | 2024-08-24 13:58 | ED_ITS ---
HPI - General Adult General Chief complaint: Weakness Stated complaint: Flu like symptoms Time Seen by Provider: 08/24/24 13:23 History of Present Illness HPI narrative: This 44-year-old female comes in reporting some nausea symptoms and occasional burning sensation in her upper abdomen. She states that she has had these symptoms for a long time and did go to a appointment last week at [facility]. She had a upper GI scope that did show some evidence of a hiatal hernia. She currently is taking omeprazole and states that she is not having any pain. She does report a little bit of nausea. She comes in thinking that she needs some IV fluids. She arrives here with normal vital signs and states that she is able to take oral liquids and has not had any vomiting or diarrhea. Related Data Home Medications ?Medication ?Instructions ?Recorded ?Confirmed citalopram 10 mg tablet 20 mg PO DAILY 09/30/22 01/03/24 acetaminophen 500 mg tablet 1,000 mg PO Q6H PRN pain 10/06/22 01/03/24 fluconazole 150 mg tablet mg PO 10/02/23 01/03/24 gabapentin 100 mg capsule 200 mg PO QID 10/02/23 01/03/24 loratadine 10 mg tablet 10 mg PO DAILY 10/02/23 01/03/24 mirtazapine 15 mg tablet 15 mg PO QPM 10/02/23 01/03/24 omeprazole 20 mg capsule,delayed 20 mg PO DAILY 10/02/23 01/03/24 release sennosides 8.6 mg-docusate sodium 2 tab PO BID 10/02/23 01/03/24 50 mg tablet (Senexon-S) valacyclovir 1 gram tablet 1,000 mg PO BID 10/02/23 01/03/24 Previous Rx's ?Medication ?Instructions ?Recorded hydrocortisone 2.5 % lotion 1 applic topical BID PRN #59 mL 01/03/23 epinephrine 0.3 mg/0.3 mL 0.3 ml IM Q5-15M PRN #2 ea 01/15/23 injection, auto-injector ibuprofen 600 mg tablet 600 mg PO Q6H PRN Pain 30 days #60 08/03/23 tabs prednisone 10 mg tablet 10 mg PO DIRECTED #30 tabs 01/03/24 hydroxyzine HCl 25 mg tablet 25 mg PO TID PRN #14 tabs 01/04/24 benztropine 1 mg tablet See Rx Instructions .Route 01/05/24 .COMPLEX #20 tabs prochlorperazine maleate 10 mg 10 mg PO Q8H PRN #20 tabs 08/24/24 tablet (Compazine) Allergies Allergy/AdvReac Type Severity Reaction Status Date / Time shellfish derived Allergy Severe Anaphylaxis Verified 01/05/24 14:00 cephalexin (From Keflex) Allergy Intermediate Rash Verified 01/05/24 14:00 Cephalosporins Allergy Intermediate Rash Verified 01/05/24 14:00 Penicillins Allergy Intermediate Rash Verified 01/05/24 14:00 Review of Systems Status of ROS: Reports: 10 or more systems reviewed and unremarkable except as noted in History and below Narrative: Constitutional: No fevers, no weight gain or loss. Eyes: No discharge. No vision changes. HENT: No congestion, no sore throat, no ear pain. Cardiovascular: No chest pain, no palpitations. Respiratory: No shortness of breath, no wheezes, no cough. Gastrointestinal: No abdominal pain, no vomiting, no diarrhea. Genitourinary: No dysuria, no hematuria. Musculoskeletal: Normal range of motion. Skin: No rashes, no pruritis. Neurological: No dizziness, weakness, sensory change, speech change. Endo/Heme/Allergies: No bruising or bleeding. No polydipsia. Pysch: no suicidality, no anxiety, no insomnia. All other systems reviewed and are negative. [facility] Medical History History of substance abuse ?F19.11 - Other psychoactive substance abuse, in remission (ICD-10) History of alcohol abuse ?F10.11 - Alcohol abuse, in remission (ICD-10) Femoral neck fracture ?S72.009A - Fracture of unspecified part of neck of unspecified femur, initial encounter for closed fracture (ICD-10) Cubital tunnel syndrome, bilateral ?G56.23 - Lesion of ulnar nerve, bilateral upper limbs (ICD-10) Obesity ?E66.9 - Obesity, unspecified (ICD-10) Substance use disorder ?F19.90 - Other psychoactive substance use, unspecified, uncomplicated (ICD- 10) Back problem ?M53.9 - Dorsopathy, unspecified (ICD-10) Anxiety ?F41.9 - Anxiety disorder, unspecified (ICD-10) Depression ?F32.A - Depression, unspecified (ICD-10) Asthma ?J45.909 - Unspecified asthma, uncomplicated (ICD-10) Surgical History Status post total hip replacement, 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) ?Z96.642 - Presence of left artificial hip joint (ICD-10) Status post laparoscopic cholecystectomy (09/13/19) ?Z90.49 - Acquired absence of other specified parts of digestive tract (ICD- 10) History of varicose vein ligation ?Z98.890 - Other specified postprocedural states (ICD-10) ?Z86.79 - Personal history of other diseases of the circulatory system (ICD- 10) Hx of hammer toe correction (10/22/03) ?Z98.890 - Other specified postprocedural states (ICD-10) ?Z87.39 - Personal history of other diseases of the musculoskeletal system and connective tissue (ICD-10) Family History Father Leukemia Social History Narrative: single, 2 kids, nonsmoker, no EtOH Highest level of school completed/degree received: Associate degree: occupational, technical, vocational program Smoking Status: Former smoker Do you use any of these nicotine containing products: None Second hand tobacco smoke exposure: No How often do you have a drink containing alcohol: never How often do you have six or more drinks on one occasion: Never AUDIT-C Alcohol total score: 0 Non-prescribed substance use: denies use Caffeine: Yes Are you using contraception or practicing any form of control: No service: No Exam Narrative: Exam Narrative: Constitutional: Well-developed, well-nourished, no acute distress. HEENT: Normocephalic, atraumatic. Neck: Normal range of motion. Nontender. Supple. Heart: Regular. No murmurs. Normal rate. Intact distal pulses. Lungs: Clear to auscultation. No chest discomfort. No wheezes, rhonchi, or rales. Abdomen: Normal bowel sounds. Nontender. No rebound tenderness. Genitalia: Deferred. Back: No midline tenderness. Normal range of motion. Extremities: Normal range of motion. No injury. Skin: Intact. No rash. Warm. No erythema or pallor. Neurologic: No altered sensation. No weakness. Alert and oriented. Psychiatric: No suicidality. No anxiety or depression. No insomnia. Nursing notes and vitals signs are reviewed. Const: Vital Signs, click to edit/add: Vital Signs - 24 hr 08/24/24 13:25 Temperature 97.8 F Pulse Rate [Right Radial] 99 Respiratory Rate 20 Blood Pressure [Ri ght Upper Arm] 139/82 Pulse Oximetry 97 Oxygen Delivery Me thod Room Air Course Vital Signs Vital signs: Initial Vital Signs Temperature 97.8 F 08/24/24 13:25 Temperature Source Temporal Artery Scan 08/24/24 13:25 Pulse Rate 99 08/24/24 13:25 Pulse Rhythm Regular 08/24/24 13:25 Respiratory Rate 20 08/24/24 13:25 Blood Pressure 139/82 08/24/24 13:25 Blood Pressure Mean 101 08/24/24 13:25 Pulse Oximetry 97 08/24/24 13:25 Oxygen Delivery Method Room Air 08/24/24 13:25 Vital Signs Temperature 97.8 F 08/24/24 13:25 Pulse Rate 99 08/24/24 13:25 Respiratory Rate 20 08/24/24 13:25 Blood Pressure 139/82 08/24/24 13:25 Pulse Oximetry 97 08/24/24 13:25 Oxygen Delivery Method Room Air 08/24/24 13:25 Temperature 97.8 F 08/24/24 13:25 Pulse Rate 99 08/24/24 13:25 Respiratory Rate 20 08/24/24 13:25 Blood Pressure 139/82 08/24/24 13:25 Pulse Oximetry 97 08/24/24 13:25 Oxygen Delivery Method Room Air 08/24/24 13:25 Medications Administered Medications: Discontinued Medications Generic Name Dose Route Start Last Admin Trade Name Freq PRN Reason Stop Dose Admin Ondansetron HCl 4 mg 08/24/24 13:53 08/24/24 13:59 Ondansetron Odt 4 Mg Tab PO 08/24/24 13:54 4 mg ONCE ONE Administration Medical Decision Making MDM Narrative Medical decision making narrative: This patient recently had an upper GI scope that identified evidence of a hiatal hernia. The patient arrives here with normal vital signs and states that she is able to take liquids but does have some nausea symptoms at times and some burning sensation in her upper abdomen. Currently she does not have much of either these symptoms. I explained reassurance is with regard to her vital signs to indicate that she is not showing signs or symptoms where IV fluids are necessary. She is understanding of this and was happy to receive an oral dose of Zofran. She states that she does have Zofran at home and takes it as needed. This medicine sometimes is not completely effective to alleviate her nausea symptoms. I stated that she could take an extra dose as needed at that time. I also provided a prescription for Compazine as another option to treat nausea symptoms. She is okay to be discharged home and has follow-up plans with her regular doctors. Discharge Plan Discharge Clinical Impression: Nausea, Hernia, hiatal Patient Disposition: Home, Self-Care Condition: Stable Additional Instructions: Continue current plans. Take medications as needed and directed. Follow up with MD or return if worsening symptoms occur. Prescriptions: New prochlorperazine maleate [Compazine] 10 mg tablet 10 mg PO Q8H PRNQty: 20 0RF No Action citalopram 10 mg tablet 20 mg PO DAILY gabapentin 100 mg capsule 200 mg PO QID valacyclovir 1 gram tablet 1,000 mg PO BID omeprazole 20 mg capsule,delayed release(DR/EC) 20 mg PO DAILY fluconazole 150 mg tablet PO mirtazapine 15 mg tablet 15 mg PO QPM loratadine 10 mg tablet 10 mg PO DAILY sennosides-docusate sodium [Senexon-S] 8.6-50 mg tablet 2 tab PO BID prednisone 10 mg tablet 10 mg PO DIRECTED Qty: 30 0RF Rx Instructions: Take four (4) tablets by mouth on days 1-3. Take three (3) tablets by mouth on days 4-6. Take two (2) tablets by mouth on days 7-9. Take one (1) tablet by mouth on days 10-12. Avoid NSAIDs while taking this medication. acetaminophen 500 mg tablet 1,000 mg PO Q6H PRN (Reason: pain) hydrocortisone 2.5 % lotion 1 applic topical BID PRNQty: 59 0RF epinephrine 0.3 mg/0.3 mL auto-injector 0.3 ml IM Q5-15M PRNQty: 2 0RF Rx Instructions: do not exceed 3 doses per episode ibuprofen 600 mg Tablet 600 mg PO Q6H PRN (Reason: Pain) 30 Days Qty: 60 0RF hydroxyzine HCl 25 mg tablet 25 mg PO TID PRNQty: 14 0RF benztropine 1 mg tablet See Rx Instructions .ROUTE .COMPLEX Qty: 20 0RF Rx Instructions: Take 1-2 mg up to twice a day for neck spasms and movement Follow Up/Referrals: Kika Johnston PA-C [Primary Care Provider] - Stand Alone Forms: MyHealth Info Instructions
[2024-08-24] MEDS: ONDANSETRON ODT 4 MG TAB PO (13:59)
--- OUTSIDE RECORDS SUMMARY | 2024-08-24 14:21 | XMS_ITS | Referral Summary ---
Author Organization [facility] Address [address] [place] [address] Care Team Providers Care Drafter Chief Design Name Role Phone Kika Johnston Primary Care [...] Plan of Treatment Not on file Insurance [facility] MEDICARE ADVANTAGE MEDICA SNBC/MSC Care Teams Drafter Chief Design Relationship Specialty Start Date End Date Kika Johnston PA [address] [place] [address] PCP - General 01/06/23
--- OUTSIDE RECORDS SUMMARY | 2024-08-24 14:21 | XMS_ITS | Clinical Summary ---
Author Organization [facility] Address [address] [place] [address] Care Team Providers Care Hand Sole Sewer Name Role Phone Kika Johnston Primary Care [...] (1 - 1-dose 75+ series) 2055 Insurance * Guarantor: Jennifer Tellez Account Type Relation to Patient Date of Phone Billing Address Personal/Family Self 1980 [address] [place] [address] [facility] MEDICARE ADVANTAGE MEDICA SNBC/MSC Care Teams Hand Sole Sewer Relationship Specialty Start Date End Date Kika Johnston PA [address] [place] [address] PCP - General 01/06/23
--- OUTSIDE RECORDS SUMMARY | 2024-08-24 14:21 | XMS_ITS | Clinical Summary ---
Author Organization [facility] Address [address] [place] [address] Care Team Providers Care Edi Coordinator Name Role Phone Kika Johnston Primary [...] complete/Level of care change) methylPREDNISolon e (Medrol, Rosales,) 4 mg tabletIndications :Cervical radiculopathy Take by [...] Team Description 08/22/2024 2:40 PM CDT Telemedicine [facility] [address] [place] [address] Hector Baez MD Musculoskeletal Problem (Follow up neck pain ) 08/22/2024 Travel 08/21/2024 2:20 PM CDT Telemedicine [facility] [address] [place] [address] Kika Johnston PA Telehealth (Med check - would like to stop the methocarbamol and fill flexeril again ) 08/21/2024 Travel 08/20/2024 Travel 08/17/2024 Travel 08/13/2024 8:50 AM CDT Telemedicine [facility] [address] [place] [address] Kika Johnston PA Telehealth (Med check - lyrica) 08/13/2024 Travel 08/04/[address] [address] Kika Johnston PA Refill Request (Valacyclovir) 08/01/2024 8:10 AM CDT Telemedicine [facility] [address] [place] [address] Kika Johnston PA Telehealth (Increased Nerve pain , would like to discuss options); Concerns (Had endoscopy yesterday, found out she had a hiatal hernia) 07/31/2024 Travel 07/30/2024 Telephone [facility] [address] [place] [address] Kika Johnston PA Questions (Billing Questions ) 07/27/[address] [address] Kika Johnston PA Refill Request (Gabapentin) 07/25/2024 Refill [facility] [address] [place] [address] Kika Johnston PA Refill Request (Polyethylene Glycol, Methocarbamol) 07/24/2024 8:10 AM INSTRUMENT LENS GENERATOR Telemedicine [facility] [address] [place] [address] Kika Johnston PA Telehealth (Phentermine , weighed herself this morning 265.8 lbs, wondering if she can increase to full tab) 07/22/2024 Travel 07/16/2024 Medical Messaging [facility] [address] [place] [address] Kika Johnston PA EGD 07/10/2024 11:30 AM INSTRUMENT LENS GENERATOR Telemedicine [facility] [address] [place] [address] Kika Johnston PA Telehealth (Heartburn that has gotten worse - has been taking 40 mg of omeprazole and tums) 07/10/2024 Refill [facility] [address] [place] [address] Kika Johnston PA Refill Request (Ondansetron) 07/09/2024 Orders Only [facility] Scanner 1 scan: (1-Ord) [facility], FLUOROSCOPICALLY GUIDED THERAPEUTIC C7-T1 INTERLAMINAR CERVICAL EPIDURAL INJECTION, 07/09/2024 07/07/2024 Travel 07/06/2024 3:45 PM INSTRUMENT LENS GENERATOR Telemedicine [facility] [address] [place] [address] Jose Montero MD 07/06/2024 Travel 07/01/2024 2:40 PM INSTRUMENT LENS GENERATOR Telemedicine [facility] [address] [place] [address] Kika Johnston PA Telehealth (Would like to discuss getting prescription for phentermine, is planning to start an exercise plan) 06/28/2024 Refill [facility] [address] [place] [address] Kika Johnston PA Refill Request (Diclofenac) 06/27/2024 10:00 AM INSTRUMENT LENS GENERATOR Telemedicine [facility] [address] [place] [address] Hector Baez MD Musculoskeletal Problem (Follow up neck pain) 06/27/2024 Travel 06/26/2024 8:00 AM INSTRUMENT LENS GENERATOR Procedure Only [facility] [address] [place] [address] Alex Thompson L Ac Acupuncture 06/26/2024 Travel 06/23/2024 Travel 06/17/2024 11:00 AM INSTRUMENT LENS GENERATOR Procedure Only [facility] [address] [place] [address] Alex Thompson L Ac Acupuncture 06/17/2024 Travel 06/13/2024 Refill [facility] [address] [place] [address] Kika Johnston PA Refill Request (Methocarbamol) 06/12/2024 Travel 06/10/2024 11:00 AM INSTRUMENT LENS GENERATOR Procedure Only [facility] [address] [place] [address] Alex Thompson L Ac Acupuncture 06/09/2024 Travel 05/31/2024 Telephone [facility] [address] [place] [address] Alex Thompson L Ac FYI (insurance) 05/31/2024 [...] Sex Assigned at Female 05/21/2021 8:17 AM INSTRUMENT LENS GENERATOR Legal Sex Female 5:18 AM INSTRUMENT LENS GENERATOR Gender Identity Female 05/21/2021 8:17 AM INSTRUMENT LENS GENERATOR Sexual Orientation Straight 02/13/2021 3: 53 AM [...] 36.7 C (98.1 F) 07/28/2023 10:27 AM INSTRUMENT LENS GENERATOR Respiratory Rate 12 02/19/2024 11:23 AM CDT [...] Info) Description 08/30/2024 8:30 AM CDT Telemedicine [facility] [address] [place] [address] Kika Johnston PA [address] [facility] [place] [address] Health Maintenance Due Date Last Done Comments Pneumococcal series for age 6-49 (1 of 2 - PCV) 1999 Pap test for age 21-65 11/02/2019 7, 08/11/2014 (Completed outside of [facility]), 07/21/2009, Additional history exists COVID-19 vaccine [...] CONSULT TO GASTROENTEROLOGY Routine 07/23/2024 8:14 PM INSTRUMENT LENS GENERATOR Gastroesophageal reflux disease, unspecified whether esophagitis present SCAN-OPERATIVE/PROCEDURE REPORT 07/09/2024 12:00 AM INSTRUMENT LENS GENERATOR ACUPUNCTURE PLAN OF CARE Routine 025 7:46 AM INSTRUMENT LENS GENERATOR Other low back pain ACUPUNCTURE PLAN OF CARE Routine 01/27/2 025 10:46 AM INSTRUMENT LENS GENERATOR Other low back pain ACUPUNCTURE PLAN OF CARE Routine 025 7:54 AM INSTRUMENT LENS GENERATOR Other low back pain OPERATOR RECEPTIONIST THIN PREP PAP SCREEN IMAGED Routine 11/01/2016 [...] Nogueira MD - 07/31/2024 12:32 PM CDT [address], [address], [place] [id number] Patient Name: Jennifer Tellez Gender: Female Exam Date: 07/31/2024 Visit Number: [id number] Age: 44 Years Date of : 1980 Attending MD: Vanessa Nogueira MD Medical Record#: [id number] ----- Procedure: Upper GI Endoscopy Indications: Reflux [...] signed by: Bryan Li MD Interpreted at [facility], [address] [place] [phone] _Electronically signed by: Vanessa Nogueira MD 07/31/2024 cc: Kika ATKINS us Vanessa Nogueira MD OTHER Final Result * SCAN-OPERATIVE/PROCEDURE REPORT (07/09/2024 12:00 AM INSTRUMENT LENS GENERATOR) us Scanner OTHER Final Result * OPERATOR RECEPTIONIST THIN PREP PAP SCREEN IMAGED (11/01/2016 2:40 PM CDT) Case Report Gynecologic Cytology Report Case: [id number] Authorizing Provider: Jodee Velazquez PA Collected: 11/01/2016 1440 Ordering Location: [facility] Received: 11/01/2016 1440 Clinic First Screen: Daniela Whelan Specimen: OPERATOR RECEPTIONIST ThinPrep Vial Screening, Cervical 11/08/2016 4:40 PM [facility]T [facility] INTERPRETATION/ RESULT NEGATIVE FOR INTRAEPITHELIAL LESION OR MALIGNANCY (NIL) (none) 11/08/2016 4:40 PM CDT [facility] [employer] ENTRAL LABORATORY at 1640 CDT SPECIMEN ADEQUACY Satisfactory for evaluation No endocervical component seen 11/08/2016 4:40 PM CDT [facility] [employer] [facility] HPV REQUEST HPV if ASCUS 11/08/2016 4:40 PM CDT [facility] EN[facility] Date of LMP 10/18/16 11/08/2016 4:40 PM CDT [facility] [employer] [facility] Last Pap Date May 2014 11/08/2016 4:40 PM CDT [facility] [employer] [facility] Last Pap Result NIL 7 4:40 PM CDT [facility] Abnormal Pap or [place] Bx in last 5 years No 11/08/2016 4:40 PM CDT [facility] [employer] [facility] Menstrual Status Regular Periods 11/08/2016 4:40 PM CDT [employer] ENTRAL LABOR[facility] [place] Bx Done Today No 11/08/2016 4:40 PM CDT [facility] [employer] [facility] Additional Information None given 11/08/2016 4:40 PM CDT [facility] ENTRAL LAB[facility] Automated Review Successful 11/08/2016 4:40 PM CDT [facility] ENTR[facility] Comment:Specimen processed s uccessfully by automated windows system admin device, [employer] System, [employer] Note The pap test is a screening technique, not a diagnostic procedure. It is used primarily to screen for squamous cancers and precursor lesions. Published studies have shown that it is subject to both false negative and false positive results. The pap test should not be used as the sole means to diagnose or exclude pre-malignant and malignant lesions. Interpreted at [facility] ([facility], [facility], [facility], [facility], [facility], [facility], [facility]) 11/08/2016 4:40 PM CDT [facility] Other (Cervical) 11/01/2016 2:40 PM CDT 11/01/2016 2:40 PM CDT Jodee ATKINS PATHOLOGY/CYTOLOGY Final R esult [facility] [address] [place] [address], [place] * ANTI HCV (11/01/2016 2:38 PM CDT) HEPATITIS C ANTIBODY Non-Reacti ve Non-Reacti ve 11/01/2016 8:25 PM CDT [facility] TRAL LABORATORY Blood BLOOD SPECIMEN / Unknown Venipuncture / Unknown 11/01/2016 2:38 PM CDT 11/01/2016 2:38 PM CDT Narrative [facility] - 11/01/2016 8:25 PM CDT Antibodies to HCV not detected; does not exclude the possibility of exposure to HCV. Jodee ATKINS SEND OUTS Final [facility]u lt [facility] [address] [place] [address], [place] * ANTI HIV 1/2 (11/01/2016 2:38 PM CDT) HIV-1/HIV-2 ANTIBODY Non-Reacti ve Non-Reacti ve 11/01/2016 8:26 PM CDT [facility] TR[facility] Blood BLOOD SPECIMEN / Unknown Venipuncture / Unknown 11/01/2016 2:38 PM CDT 11/01/2016 2:38 PM CDT Narrative [facility] - 11/01/2016 8:26 PM CDT HIV-1 p24 and HIV-1/HIV-2 Ab not detected us Jodee ATKINS SEND OUTS Final Resu lt [facility] [address] [place] [address], from Last 3 Months or Most Recently Relevant to Health Maintenance Insurance [facility] [place]: [place] [address] MEDICARE PART A HB ONLY MEDICARE PART B HB ONLY [facility] MR HB ONLY [facility] MEDICA PMAP HB ONLY [facility] MR [employer] COMP [facility] CARE ATTN: [place] [address] Advance Directives Documents on File Type Date Recorded Patient Sod Stripper Expl anation Healthcare Directive 04/16/2024 3:07 PM [...] Preferences, Provider to review later Care Teams Edi Coordinator Relationship Specialty Start Date End Date Kika Johnston PA [address] [place] [address] PCP - General Physician Community Service Officer Coordinator 02/11/21
== END 2024-08-24 14:17 | disposition home or self-care (01) ==
PROVIDERS: Emergency Provider Emergency Medicine Emergency Medical Services; PCP Physician Assistant Medical
DX: K44.9 Diaphragmatic hernia without obstruction or gangrene (principal); R11.0 Nausea
CPT/HCPCS: 99283; 99284; A9270

== ENCOUNTER 2024-09-13 07:50 | Emergency (ER) | payer MEDICARE, OTHER, SELFPAY ==
--- OUTSIDE RECORDS SUMMARY | 2024-09-13 07:53 | XMS_ITS | Clinical Summary ---
Author Organization [facility] Address [address] [place] [address] Care Team Providers Care Community Health Coordinator Name Role Phone Kika Johnston Primary [...] two times daily. 60 Capsule 1 025 Active meloxicam 15 mg tabletIndications :Other chronic pain,Upper back pain,Hip pain, right,DDD (degenerative disc disease), cervical,Muscle spasm Take 1 Tablet (15 mg) by mouth once daily. 30 Tablet 1 025 Active cyclobenzaprine 10 mg tabletIndications :Upper back pain,Muscle spasm Take 1 Tablet (10 mg) by mouth 2 times daily if needed for Muscle Spasm. 30 Tablet 3 025 Active albuterol HFA 90 mcg/actuation inhalerIndication s:Moderate persistent asthma without complication (HC) Inhale 1-2 Puffs by mouth every 4 hours if needed for Wheezing. 1 Each 1 025 Active prochlorperazine 10 mg tabletIndications :Nausea TAKE ONE TABLET BY MOUTH EVERY 8 HOURS NEEDED NAUSEA, VOMITING 20 Tablet 3 025 Active methocarbamoL 500 mg tabletIndications :Muscle spasm,Upper back pain,Nonintractab le headache, unspecified chronicity pattern, unspecified headache type TAKE ONE TABLET BY MOUTH THREE TIMES A DAY 21 Tablet 5 025 2024 Discontinued(* Med complete/Regim en complete/Level of care change) prochlorperazine 10 mg tabletIndications :Nausea Take 1 Tablet (10 mg) by mouth every 8 hours if needed for Nausea/Vomiting . 20 Tablet 025 2024 Discontinued Active Problems Problem Noted Date Diagnosed Date Leukocytosis 08/28/2024 Addiction to drug 01/23/2024 Overview (01/23/2024): Muscle [...] 09/19/2018 Alcohol abuse 09/19/2018 Personality disorder 07/26/2017 Overview (08/28/2024): AI Summary: As of 02/19/24: Patient has a history of personality disorder, first documented on 07/26/2017. As of 11/02/17: Patient was prescribed olanzapine on multiple occasions between 09/12/2017 and 04/26/2018 and quetiapine on 01/07/2022 for personality disorder. 12/13/23: TSH 1.6 uIU/mL 12/13/23: Glu 108 mg/dL On meds: aripiprazole (external), buPROPion (external), busPIRone, citalopram (external), gabapentin, hydrOXYzine, lamotrigine (external), lisdexamfetamine, mirtazapine, phentermine, venlafaxine Recent encounter dx: 06/17/22: Appointment - [facility] 01/05/22: Support OP Encounter - [facility] 11/19/21: Appointment - [facility] 11/14/21: Support OP Encounter - [facility] 05/26/21: Appointment - [facility] Recent notes: 02/21/24: Progress Notes - Nursing Notes by MILLY Palm ... [+] ? Personality disorder (HC) 02/19/24: [facility] by Magaly Pittman MD ... [+] Jennifer Tellez is a 43 y.o. female with PMH ADD, MDD/JOSUE, personality disorder, whom I am seeing at the [facility] in f/u for lower extremity venous insufficiency symptoms. ... [+] ? Personality disorder (HC) 07/26/2017 07/12/23: H&P - Preoperative Consultation by MILLY Palm ... [+] ? Personality disorder (HC) F60.9 05/12/23: ED Provider Note by MILLY Rondon ... [+] Personality disorder (HC) 03/14/23: Progress Notes - Vascular & Endovascular Surgery- [facility] VASCULAR SURGERY [facility] CONSULT by Magaly Pittman MD ... [+] Jennifer Tellez is a 42 y.o. female with PMH ADD, MDD/JOSUE, personality disorder, whom I am seeing at the [facility] in consultation for lower extremity venous insufficiency symptoms. Substance abuse in remission 07/12/2017 Overview (05/12/2023): Overview: Alcohol, Meth, MJ, Adderall JOSUE (generalized anxiety disorder) 02/17/2017 Other specified depressive episodes 02/16/2017 Eating disorder 12/27/2016 Bipolar II disorder, severe, depressed, with mixed features, in partial remission 12/18/2016 Recurrent major depression in full remission Genital herpes 09/17/2014 Chemical dependency 07/29/2014 Overview (09/17/2014): Alcohol, meth, Adderall Tobacco use 07/29/2014 Anxiety disorder 11/25/2009 ADD (attention deficit disorder) 10/27/2009 [...] Encounters Date Type Department Care Team Description 09/12/2024 Travel 09/10/2024 Refill [facility] [address] [place] [address] Kika Johnston PA Refill Request (Prochlorperazine) 09/07/2024 Travel 09/03/2024 8:40 AM CDT Telemedicine [facility] [address] [place] [address] Lyric Collins NP Error-please disregard 09/03/2024 Travel 08/28/2024 Travel 08/26/2024 10:25 AM CDT Office Visit [facility] [address] [place] [address] Ray Urias MD Fatigue (over a week); Extremity Weakness 08/26/2024 Travel 08/22/2024 2:40 PM CDT Telemedicine [facility] [address] [place] [address] Hector Baez MD Musculoskeletal Problem (Follow up neck pain ) 08/22/2024 Travel 08/21/2024 2:20 PM CDT Telemedicine [facility] [address] [place] [address] Kika Johnston PA Telehealth (Med check - would like to stop the methocarbamol and fill flexeril again ) 08/21/2024 Travel 08/20/2024 Travel 08/17/2024 Travel 08/13/2024 8:50 AM CDT Telemedicine [facility] [address] [place] [address] Kika Johnston PA Telehealth (Med check - lyrica) 08/13/2024 Travel 08/04/[address] [address] Kika Johnston PA Refill Request (Valacyclovir) 08/01/2024 8:10 AM CDT Telemedicine [address] [address] Kika Johnston PA Telehealth (Increased Nerve pain , would like to discuss options); Concerns (Had endoscopy yesterday, found out she had a hiatal hernia) 07/31/2024 Travel 07/30/2024 Telephone [facility] [address] [place] [address] Kika Johnston PA Questions (Billing Questions ) 07/27/[address] [address] Kika Johnston PA Refill Request (Gabapentin) 07/25/[address] [place] [address] Kika Johnston PA Refill Request (Polyethylene Glycol, Methocarbamol) 07/24/2024 8:10 AM TRASH TRUCK DRIVER Telemedicine [facility] [address] [facility] [place] [address] Kika Johnston PA Telehealth (Phentermine , weighed herself this morning 265.8 lbs, wondering if she can increase to full tab) 07/22/2024 Travel 07/16/2024 Medical Messaging [facility] [address] [place] [address] Kika Johnston PA EGD 07/10/2024 11:30 AM TRASH TRUCK DRIVER Telemedicine [facility] [address] [place] [address] Kika Johnston PA Telehealth (Heartburn that has gotten worse - has been taking 40 mg of omeprazole and tums) 07/10/2024 Refill [facility] [address] [place] [address] Kika Johnston PA Refill Request (Ondansetron) 07/09/2024 Orders Only [facility] Scanner 1 scan: (1-Ord) [facility], FLUOROSCOPICALLY GUIDED THERAPEUTIC C7-T1 INTERLAMINAR CERVICAL EPIDURAL INJECTION, 07/09/2024 07/07/2024 Travel 07/06/2024 3:45 PM TRASH TRUCK DRIVER Telemedicine [facility] [place] [address] Jose Montero MD 07/06/2024 Travel 07/01/2024 2:40 PM TRASH TRUCK DRIVER Telemedicine [facility] [address] [place] [address] Kika Johnston PA Telehealth (Would like to discuss getting prescription for phentermine, is planning to start an exercise plan) 06/28/2024 Refill [facility] [address] [place] [address] Kika Johnston PA Refill Request (Diclofenac) 06/27/2024 10:00 AM TRASH TRUCK DRIVER Telemedicine [facility] [address] [facility] [address] Hector Baez MD Musculoskeletal Problem (Follow up neck pain) 06/27/2024 Travel 06/26/2024 8:00 AM TRASH TRUCK DRIVER Procedure Only [facility] [address] [facility] [place] [address] Alex Thompson L Ac Acupuncture 06/26/2024 Travel 06/23/2024 Travel 06/17/2024 11:00 AM TRASH TRUCK DRIVER Procedure Only [facility] [address] [facility] [address] Alex Thompson L Ac Acupuncture 06/17/2024 Travel from Last 3 Months Immunizations Immunization Administration Dates Next Due COVID-19 vaccine (Moderna 100mcg/0.5mL) PF, MDV 12/07/2021,12/03/2020,11/05/2020 DTP 10/10/1985 DTaP 10/10/1985 Hepatitis A (Adult) 07/21/2009,09/23/2008 Hepatitis A, Unspecified 07/21/2009,09/23/2008 Hepatitis B (Adult) 05/10/2007,11/30/2006,2005 Hepatitis B, Unspecified 05/10/2007,11/30/2006,0 09/07/2005 INFLUENZA, IIV3 PF (AGE >= 6 MO) 02/12/2024 Inactivated Polio Vaccine 10/10/1985 Influenza A (H1N1), [...] Sex Assigned at Female 05/21/2021 8:17 AM TRASH TRUCK DRIVER Legal Sex Female 5:18 AM TRASH TRUCK DRIVER Gender Identity Female 05/21/2021 8:17 AM TRASH TRUCK DRIVER Sexual Orientation Straight 02/13/2021 3: 53 AM [...] Sign Reading Time Taken Comments Blood Pressure 123/81 08/26/2024 10:11 AM CDT Pulse 96 08/26/2024 10:11 AM CDT Temperature 36.8 C (98.3 F) 08/26/2024 10:11 AM CDT Respiratory Rate 12 02/19/2024 11:23 AM CDT Oxygen Saturation 100% 08/26/2024 10:11 AM CDT Inhaled Oxygen Concentration - - Weight 120.4 kg (265 lb 8 oz) 08/26/2024 10:11 A M CDT Height 180.3 cm (5' 11) 12/26/2023 12:28 PM CDT Body Mass Index 37.03 12/26/2023 12:28 PM CDT Plan of Treatment Upcoming Encounters Date Type Department Care Team (Late st Contact Info) Description 09/20/2024 8:50 AM CDT Telemedicine [facility] [address] [place] [address] Kika Johnston PA [address] [place] [address] Health Maintenance Due Date Last Done Comments Pneumococcal series for age 6-49 (1 of 2 - PCV) 1999 Pap test for age 21-65 11/02/2019 7, 08/11/2014 (Completed outside of [facility]), 07/21/2009, Additional history exists COVID-19 vaccine series [...] e 18-79 Completed 11/01/2016, 07/21/2009, 09/23/2008 Influenza Vaccine Completed 02/12/2024, , 02/21/2022, Additional history exists Procedures Procedure Name Priority Date/Time Associated Diagnosis Comments CBC WITH AUTO DIFFERENTIAL STAT 09/12/2024 1:18 PM CDT Leukocytosis, unspecified type RETICULOCYTES STAT 09/12/2024 1:18 PM CDT Leukocytosis, unspecified type CBC WITH AUTO DIFFERENTIAL STAT 09/12/2024 1:18 PM CDT Leukocytosis, unspecified type FERRITIN Routine 08/26/2024 10:52 AM CDT Weakness Fatigue, unspecified type Iron deficiency anemia, unspecified iron deficiency anemia type CBC WITH AUTO DIFFERENTIAL Routine 08/26/2024 10:52 AM CDT Weakness Fatigue, unspecified type AMB CONSULT TO GASTROENTEROLOGY Routine 08/02/2024 8:03 PM CDT Gastroesophageal reflux disease, unspecified whether esophagitis present SCAN-OPERATIVE/PROCEDURE REPORT 07/31/2024 1:30 PM CDT AMB CONSULT TO GASTROENTEROLOGY Routine 07/23/2024 8:14 PM TRASH TRUCK DRIVER Gastroesophageal reflux disease, unspecified whether esophagitis present SCAN-OPERATIVE/PROCEDURE REPORT 07/09/2024 12:00 AM TRASH TRUCK DRIVER ACUPUNCTURE PLAN OF CARE Routine 025 7:46 AM TRASH TRUCK DRIVER Other low back pain ACUPUNCTURE PLAN OF CARE Routine 025 10:46 AM TRASH TRUCK DRIVER Other low back pain CHANNEL ROUGHER THIN PREP PAP SCREEN IMAGED Routine 11/01/2016 2:40 PM CDT Screening for malignant neoplasm of cervix ANTI HIV 1/2 Routine 11/01/2016 2:38 PM CDT Screen for STD (sexually transmitted disease) ANTI HCV Routine 11/01/2016 2:38 PM CDT Screen for STD (sexually transmitted disease) from Last 3 Months or Most Recently Relevant to Health Maintenance Results * (ABNORMAL) CBC WITH AUTO DIFFERENTIAL (09/12/2024 1:18 PM CDT) WHITE BLOOD COUNT 11.0 4.5 - 11.0 thou/cu mm 09/12/2024 10:18 PM CDT [facility] RED BLOOD COUNT 4.66 4.00 - 5.20 mil/cu mm 09/12/2024 10:18 PM CDT [facility] HEMOGLOBIN 12.6 12.0 - 16.0 g/dL 09/12/2024 10:18 PM CDT [facility] HEMATOCRIT 39.6 33.0 - 51.0 % 09/12/2024 10:18 PM CDT [facility] MCV 85 80 - 100 fL 09/12/2024 10:18 PM CDT [facility] MCH 27.0 26.0 - 34.0 pg 09/12/2024 10:18 PM CDT [facility] MCHC 31.8(L) 32.0 - 36.0 g/dL 09/12/2024 10:18 PM CDT [facility] RDW 13.7 11.5 - 15.5 % 09/12/2024 10:18 PM CDT [facility] PLATELET COUNT 402 140 - 440 thou/cu mm 09/12/2024 10:18 PM CDT [facility] MPV 8.9 6.5 - 11.0 fL 09/12/2024 10:18 PM CDT [facility] NRBC 0.0 % 09/12/2024 10:18 PM CDT [facility] ABS NRBC 0.0 thou /cu mm 09/12/2024 10:18 PM CDT [facility] % NEUT 60.8 % 09/12/2024 10:18 PM CDT [facility] % LYMPH 27.8 % 09/12/2024 10:18 PM CDT [facility] % MONO 5.8 % 09/12/2024 10:18 PM CDT [facility] % EOS 4.2 % 09/12/2024 10:18 PM CDT [facility] % BASO 0.8 % 09/12/2024 10:18 PM CDT [facility] % IMMATURE GRAN (METAS,MYELOS,WI OS) 0.6 % 09/12/2024 10:18 PM CDT [facility] ABSOLUTE NEUTROPHILS 6.7 1.7 - 7.0 thou/cu mm 09/12/2024 10:18 PM CDT [facility] ABSOLUTE LYMPHOCYTES 3.1(H) 0.9 - 2.9 thou/cu mm 09/12/2024 10:18 PM CDT [facility] ABSOLUTE MONOCYTES 0.6 <0.9 thou/cu mm 09/12/2024 10:18 PM CDT [facility] ABSOLUTE EOSINOPHILS 0.5(H) <0.5 thou/cu mm 09/12/2024 10:18 PM CDT [facility] ABSOLUTE BASOPHILS 0.1 <0.3 thou/cu mm 09/12/2024 10:18 PM CDT [facility] ABSOLUTE IMMATURE GRANULOCYTES(MET ,MYELOS,PROS) 0.1 <0.3 thou/cu mm 09/12/2024 10:18 PM CDT [facility] Blood BLOOD SPECIMEN / Unknown [facility] / Unknown 09/12/2024 1:18 PM CDT 09/12/2024 1:18 PM CDT Kika ATKINS HEMATOLOGY Final R esult Performing Organization Address [facility] Co de Phone Number [facility] [address] [place] [phone], [place] * RETICULOCYTES [73868.0] (09/12/2024 1:18 PM CDT) [facility] RETIC% 1.5 0.5 - 1.5 % 09/12/2024 10:18 PM CDT [facility] RETIC (ABSOLUTE) 0.07 0.03 - 0.08 mil/cu mm 09/12/2024 10:18 PM CDT [facility] Blood BLOOD SPECIMEN / Unknown [facility] / Unknown 09/12/2024 1:18 PM CDT 09/12/2024 1:18 PM CDT Kika ATKINS HEMATOLOGY Final R esult Performing Organization Address [facility] Co de Phone Number [facility] [address] [place] [phone], [place] * (ABNORMAL) CBC AND DIFFERENTIAL (08/26/2024 10:52 AM CDT) [facility] WHITE BLOOD CELL COUNT 13.5(H) 3.8 - 10.8 Thousand/u L [facility] RED BLOOD CELL COUNT 4.78 3.80 - 5.10 Million/uL [facility] HEMOGLOBIN 13.2 11.7 - 15.5 g/dL [facility] HEMATOCRIT 40.8 35.0 - 45.0 % [facility] MCV 85.4 80.0 - 100.0 fL [facility] MCH 27.6 27.0 - 33.0 pg [facility] MCHC 32.4 32.0 - 36.0 g/dL [facility] Comment: For adults, a slight decrease in the calculated MCHC value (in the range of 30 to 32 g/dL) is most likely not clinically significant; however, it should be interpreted with caution in correlation with other red cell parameters and the patient's clinical condition. RDW 13.1 11.0 - 15.0 % [facility] PLATELET COUNT 451(H) 140 - 400 Thousand/u L [facility] MPV 9.0 7.5 - 12.5 fL [facility] ABSOLUTE NEUTROPHILS 9,558(H) 1,500 - 7,800 cells/uL [facility] ABSOLUTE LYMPHOCYTES 2,997 850 - 3,900 cells/uL [facility] ABSOLUTE MONOCYTES 648 200 - 950 cells/uL [facility] ABSOLUTE EOSINOPHILS 230 15 - 500 cells/uL [facility] ABSOLUTE BASOPHILS 68 0 - 200 cells/uL [facility] NEUTROPHILS 70.8 % [facility] LYMPHOCYTES 22.2 % [facility] MONOCYTES 4.8 % [facility] EOSINOPHILS 1.7 % [facility] BASOPHILS 0.5 % [facility] Blood BLOOD SPECIMEN / Unknown 08/26/2024 10:52 AM CDT 08/26/2024 10:52 AM CDT Ray Urias MD HEMATOLOGY Final Result Performing Organization Address City/State/[facility] Co de Phone Number [facility] [address] [place] [address], [facility] [address] [place] [address] * FERRITIN (08/26/2024 10:52 AM CDT) FERRITIN 62 16 - 232 ng/mL [facility] Blood BLOOD SPECIMEN / Unknown 08/26/2024 10:52 AM CDT 08/26/2024 10:52 AM CDT Ray Urias MD CHEMISTRY Final Result [facility] [address] [place] [address], [facility] [address] [place] [address] * SCAN-OPERATIVE/PROCEDURE REPORT (07/31/2024 1:30 PM CDT) Narrative Procedure Note Vanessa Nogueira MD - 07/31/2024 12:32 PM CDT [facility] [address] [facility], [address], [place] [address] Patient Name: Jennifer Tellez Gender: Female Exam Date: 07/31/2024 Visit Number: [id number] Age: 44 Years Date of : 1980 Attending MD: Vanessa Nogueira MD Medical Record#: [id number] ----- Procedure: Upper GI Endoscopy Indications: Reflux [...] signed by: Bryan Li MD Interpreted at [facility], [address] [address] _Electronically signed by: Vanessa Nogueira MD 07/31/2024 cc: Kika ATKINS Vanessa Nogueira MD OTHER Final Result * SCAN-OPERATIVE/PROCEDURE REPORT (07/09/2024 12:00 AM TRASH TRUCK DRIVER) us Scanner OTHER Final Result * CHANNEL ROUGHER THIN PREP PAP SCREEN IMAGED (11/01/2016 2:40 PM CDT) Case Report Gynecologic Cytology Report Case: [id number] Authorizing Provider: Jodee Velazquez PA Collected: 11/01/2016 1440 Ordering Location: [facility] Received: 11/01/2016 1440 Clinic First Screen: Daniela Whelan Specimen: CHANNEL ROUGHER ThinPrep Vial Screening, Cervical 11/08/2016 4:40 PM CDT [email or web address] INTERPRETATION/ RESULT NEGATIVE FOR INTRAEPITHELIAL LESION OR MALIGNANCY (NIL) (none) 11/08/2016 4:40 PM CDT [facility] at 1640 CDT SPECIMEN ADEQUACY Satisfactory for evaluation No endocervical component seen 11/08/2016 4:40 PM CDT [facility] Essential Testing [facility] HPV REQUEST HPV if ASCUS 11/08/2016 4:40 PM CDT [facility] Date of LMP 10/18/16 11/08/2016 4:40 PM CDT [facility] Last Pap Date May 2014 11/08/2016 4:40 PM CDT [facility] Last Pap Result NIL 7 4:40 PM CDT [facility] Abnormal Pap or [place]err[place] Bx in last 5 years No 11/08/2016 4:40 PM CDT [facility] Menstrual Status Regular Periods 11/08/2016 4:40 PM CDT [facility] Perrinton Bx Done Today No 11/08/2016 4:40 PM CDT [facility] Additional Information None given 11/08/2016 4:40 PM CDT [facility] Automated Review Successful 11/08/2016 4:40 PM CDT [facility] Comment:Specimen processed s uccessfully by automated charge entry clerk device, Thin[employer] Imaging System, [employer] Note The pap test is a screening technique, not a diagnostic procedure. It is used primarily to screen for squamous cancers and precursor lesions. Published studies have shown that it is subject to both false negative and false positive results. The pap test should not be used as the sole means to diagnose or exclude pre-malignant and malignant lesions. Interpreted at [facility] (Central Lab, [facility], [facility], [facility], [facility], [facility], [facility]) 11/08/2016 4:40 PM CDT [facility] Other (Cervical) 11/01/2016 2:40 PM CDT 11/01/2016 2:40 PM CDT Jodee ATKINS PATHOLOGY/CYTOLOGY Final R esult Performing Organization Address City/[facility]/ZIP Co de Phone Number [facility] [address] [place] [phone], [place] * ANTI HCV (11/01/2016 2:38 PM CDT) HEPATITIS C ANTIBODY Non-Reacti ve Non-Reacti ve 11/01/2016 8:25 PM CDT [facility] Blood BLOOD SPECIMEN / Unknown Venipuncture / Unknown 11/01/2016 2:38 PM CDT 11/01/2016 2:38 PM CDT Narrative [facility] - 11/01/2016 8:25 PM CDT Antibodies to HCV not detected; does not exclude the possibility of exposure to HCV. Jodee ATKINS SEND OUTS Final Resu lt [facility] [address] [place] [address], [place] * ANTI HIV 1/2 (11/01/2016 2:38 PM CDT) HIV-1/HIV-2 ANTIBODY Non-Reacti ve Non-Reacti ve 11/01/2016 8:26 PM CDT [facility] Blood BLOOD SPECIMEN / Unknown Venipuncture / Unknown 11/01/2016 2:38 PM CDT 11/01/2016 2:38 PM CDT Narrative [facility] - 11/01/2016 8:26 PM CDT HIV-1 p24 and HIV-1/HIV-2 Ab not detected us Jodee ATKINS SEND OUTS Final Resu lt [facility] [address] [place] [address], from Last 3 Months or Most Recently Relevant to Health Maintenance Insurance 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
--- OUTSIDE RECORDS SUMMARY | 2024-09-13 07:53 | XMS_ITS | Referral Summary ---
Author Organization [facility] Address [address] [place] [address] Care Team Providers Care Soda Jerker Name Role Phone Kika Johnston Primary Care [...] Plan of Treatment Not on file Insurance [facility] MEDICARE ADVANTAGE MEDICA SNBC/MSC Care Teams Soda Jerker Relationship Specialty Start Date End Date Kika Johnston PA [address] [place] [address] PCP - General 01/06/23
--- OUTSIDE RECORDS SUMMARY | 2024-09-13 07:53 | XMS_ITS | Clinical Summary ---
Author Organization [facility] Address [address] [place] [address] Care Team Providers Care Fabricator [employer]er [employer] Name Role Phone Kika Johnston Primary Care [...] of 2 - PCV) 1999 COVID-19 Vaccine ( - 2023-2 5 season) 2024 Adult Tetanus Booster 04/15/2024 04/15/2014 , 08/05/2005, 08/05/2005, Additional history exists Influenza Vaccine (Season Ended) 2025 02/19/20, 03/03/2015 RSV Vaccines (1 - 1-dose 75+ series) 2055 Insurance [facility] MEDICARE ADVANTAGE MEDICA SNBC/MSC Care Teams Fabricator As[employer]er [employer] Relationship Specialty Start Date End Date Kika Johnston PA [address] [place] [address] PCP - General 01/06/23
[2024-09-13 08:02] VITALS: BP 129/83; PULSE 98; RESP 18; TEMP 36.3; O2SAT 97; BMI 37.0
--- NOTE | 2024-09-13 08:23 | ED.GENADULT ---
HPI - General Adult General Chief complaint: Unspecified Complaint, Adult Stated complaint: tremors for a few weeks Time Seen by Provider: 09/13/24 07:52 History of Present Illness HPI narrative: Patient is a 44-year-old woman comes in today with 2 months of progressive tremors of basically or upper lower extremities. They are symmetrical. She has not had any fever other [employer] symptoms. She has had no chest pain no shortness of breath no weakness no nausea no vomiting. Patient is quite anxious. She has a complex psychiatric history with bipolar disorder with auditory hallucinations. She is on buspirone cyclobenzaprine gabapentin hydroxyzine lisdexamfetamine meloxicam pregabalin and venlafaxine. These have been stable and she does see a psychiatrist. No other complaints noted. Related Data Home Medications ?Medication ?Instructions ?Recorded ?Confirmed acetaminophen 500 mg tablet 1,000 mg PO Q6H PRN pain 10/06/22 09/13/24 gabapentin 100 mg capsule 200 mg PO QID 10/02/23 09/13/24 loratadine 10 mg tablet 10 mg PO DAILY 10/02/23 09/13/24 mirtazapine 15 mg tablet 15 mg PO QPM 10/02/23 09/13/24 omeprazole 20 mg capsule,delayed 20 mg PO DAILY 10/02/23 09/13/24 release sennosides 8.6 mg-docusate sodium 2 tab PO BID 10/02/23 09/13/24 50 mg tablet (Senexon-S) valacyclovir 1 gram tablet 1,000 mg PO BID 10/02/23 09/13/24 albuterol sulfate 90 mcg/actuation inhalation 09/13/24 aerosol inhaler buspirone 10 mg tablet 10 mg PO 3XD 09/13/24 09/13/24 cholecalciferol (vitamin D3) 1,250 1,250 mcg PO 09/13/24 mcg (50,000 unit) capsule cyclobenzaprine 10 mg tablet 10 mg PO BID PRN 09/13/24 09/13/24 lidocaine 5 % topical patch 1 patch topical DAILY 09/13/24 09/13/24 lisdexamfetamine 20 mg capsule 20 mg PO DAILY 09/13/24 09/13/24 meloxicam 15 mg tablet 15 mg PO DAILY 04/25/25 04/25/25 naltrexone 50 mg tablet 50 mg PO DAILY 09/13/24 09/13/24 pregabalin 150 mg capsule 150 mg PO BID 09/13/24 09/13/24 valbenazine 40 mg capsule 40 mg PO DAILY 09/13/24 09/13/24 (Ingrezza) venlafaxine 37.5 mg 37.5 mg PO DAILY 09/13/24 09/13/24 capsule,extended release 24 hr Previous Rx's ?Medication ?Instructions ?Recorded epinephrine 0.3 mg/0.3 mL 0.3 ml IM Q5-15M PRN #2 ea 01/15/23 injection, auto-injector ibuprofen 600 mg tablet 600 mg PO Q6H PRN Pain 30 days #60 08/03/23 tabs hydroxyzine HCl 25 mg tablet 25 mg PO TID PRN #14 tabs 01/04/24 prochlorperazine maleate 10 mg 10 mg PO Q8H PRN #20 tabs 08/24/24 tablet (Compazine) Allergies Allergy/AdvReac Type Severity Reaction Status Date / Time shellfish derived Allergy Severe Anaphylaxis Verified 09/13/24 08:14 cephalexin (From Keflex) Allergy Intermediate Rash Verified 09/13/24 08:14 Cephalosporins Allergy Intermediate Rash Verified 09/13/24 08:14 Penicillins Allergy Intermediate Rash Verified 09/13/24 08:14 Review of Systems Status of ROS: Reports: 10 or more systems reviewed and unremarkable except as noted in History and below [facility] Medical History History of substance abuse ?F19.11 - Other psychoactive substance abuse, in remission (ICD-10) History of alcohol abuse ?F10.11 - Alcohol abuse, in remission (ICD-10) Femoral neck fracture ?S72.009A - Fracture of unspecified part of neck of unspecified femur, initial encounter for closed fracture (ICD-10) Cubital tunnel syndrome, bilateral ?G56.23 - Lesion of ulnar nerve, bilateral upper limbs (ICD-10) Obesity ?E66.9 - Obesity, unspecified (ICD-10) Substance use disorder ?F19.90 - Other psychoactive substance use, unspecified, uncomplicated (ICD-10) Back problem ?M53.9 - Dorsopathy, unspecified (ICD-10) Anxiety ?F41.9 - Anxiety disorder, unspecified (ICD-10) Depression ?F32.A - Depression, unspecified (ICD-10) Asthma ?J45.909 - Unspecified asthma, uncomplicated (ICD-10) Surgical History Status post total hip replacement, 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) ?Z96.642 - Presence of left artificial hip joint (ICD-10) Status post laparoscopic cholecystectomy (09/13/19) ?Z90.49 - Acquired absence of other specified parts of digestive tract (ICD-10) History of varicose vein ligation ?Z98.890 - Other specified postprocedural states (ICD-10) ?Z86.79 - Personal history of other diseases of the circulatory system (ICD-10) Hx of hammer toe correction (10/22/03) ?Z98.890 - Other specified postprocedural states (ICD-10) ?Z87.39 - Personal history of other diseases of the musculoskeletal system and connective tissue (ICD-10) Family History Father Leukemia Social History Narrative: single, 2 kids, nonsmoker, no EtOH Highest level of school completed/degree received: Associate degree: occupational, technical, vocational program Smoking Status: Former smoker Do you use any of these nicotine containing products: None Second hand tobacco smoke exposure: No How often do you have a drink containing alcohol: never How often do you have six or more drinks on one occasion: Never AUDIT-C Alcohol total score: 0 Non-prescribed substance use: denies use Caffeine: Yes Are you using contraception or practicing any form of control: No service: No Exam Narrative: Exam Narrative: EXAM GENERAL: Patient appears comfortable and well. Diffuse tremor noted. EYES: No scleral icterus. LYMPH: No supraclavicular or cervical lymphadenopathy. SKIN: Visible skin seen during exam normal or with benign process only. EXT: No dependent lower extremity pedal edema. HEART: Regular rate and rhythm with no murmurs, rubs, or gallops. LUNGS: Clear to auscultation bilaterally with no crackles or wheezes. ABD: Soft, non tender, non distended. PSYCH: Good eye contact, speech is not pressured. Neurologic cranial nerves 2-12 grossly intact no focal defects. She does have upper and lower extremity tremors which are resting tremors. Const: Vital Signs, click to edit/add: Vital Signs - 24 hr 09/13/24 08:02 Temperature 97.3 F L Pulse Rate [Right Pulse Oximeter] 98 Respiratory Rate 18 Blood Pressure [Ri ght Upper Arm] 129/83 Pulse Oximetry 97 Oxygen Delivery Me thod Room Air Course Course ED Course: Patient seen and examined. Vital Signs Vital signs: Initial Vital Signs Temperature 97.3 F L 09/13/24 08:02 Temperature Source Temporal Artery Scan 09/13/24 08:02 Pulse Rate 98 09/13/24 08:02 Pulse Rhythm Regular 09/13/24 08:02 Pulse Strength 3+ Normal 09/13/24 08:02 Respiratory Rate 18 09/13/24 08:02 Blood Pressure 129/83 09/13/24 08:02 Blood Pressure Mean 98 09/13/24 08:02 Blood Pressure Position Sitting 09/13/24 08:02 Pulse Oximetry 97 09/13/24 08:02 Oxygen Delivery Method Room Air 09/13/24 08:02 Vital Signs Temperature 97.3 F L 09/13/24 08:02 Pulse Rate 98 09/13/24 08:02 Respiratory Rate 18 09/13/24 08:02 Blood Pressure 129/83 09/13/24 08:02 Pulse Oximetry 97 09/13/24 08:02 Oxygen Delivery Method Room Air 09/13/24 08:02 Temperature 97.3 F L 09/13/24 08:02 Pulse Rate 98 09/13/24 08:02 Respiratory Rate 18 09/13/24 08:02 Blood Pressure 129/83 09/13/24 08:02 Pulse Oximetry 97 09/13/24 08:02 Oxygen Delivery Method Room Air 09/13/24 08:02 Medical Decision Making MDM Narrative Medical decision making narrative: Patient is a 44-year-old woman with a complex psychiatric history who presents with tremors. He has significant polypharmacy and has a number of medications that could be causing her tremors. My advice at this time is that we should decrease her pregabalin with the idea that she will also call her psychiatrist today for further recommendations. I would not feel comfortable making any other changes due to the complexity of her psychiatric history. She is not suicidal or homicidal today. Patient is released to contact her psychiatrist stopping her pregabalin. Discharge Plan Discharge Clinical Impression: Tremor Patient Disposition: Home, Self-Care Condition: Stable Instructions: Tremors (ED) Additional Instructions: Discontinue pregabalin Call your psychiatrist for further recommendations. Follow-up with primary care as scheduled. Activity Level: No Restrictions Discharge Diet: Regular Prescriptions: No Action gabapentin 100 mg capsule 200 mg PO QID valacyclovir 1 gram tablet 1,000 mg PO BID omeprazole 20 mg capsule,delayed release(DR/EC) 20 mg PO DAILY mirtazapine 15 mg tablet 15 mg PO QPM loratadine 10 mg tablet 10 mg PO DAILY sennosides-docusate sodium [Senexon-S] 8.6-50 mg tablet 2 tab PO BID acetaminophen 500 mg tablet 1,000 mg PO Q6H PRN (Reason: pain) epinephrine 0.3 mg/0.3 mL auto-injector 0.3 ml IM Q5-15M PRNQty: 2 0RF Rx Instructions: do not exceed 3 doses per episode ibuprofen 600 mg Tablet 600 mg PO Q6H PRN (Reason: Pain) 30 Days Qty: 60 0RF hydroxyzine HCl 25 mg tablet 25 mg PO TID PRNQty: 14 0RF prochlorperazine maleate [Compazine] 10 mg tablet 10 mg PO Q8H PRNQty: 20 0RF cyclobenzaprine 10 mg tablet 10 mg PO BID PRN venlafaxine 37.5 mg capsule,extended release 24hr 37.5 mg PO DAILY meloxicam 15 mg tablet 15 mg PO DAILY naltrexone 50 mg tablet 50 mg PO DAILY buspirone 10 mg tablet 10 mg PO 3XD lidocaine 5 % adhesive patch,medicated 1 patch topical DAILY albuterol sulfate 90 mcg/actuation HFA aerosol inhaler inhalation pregabalin 150 mg capsule 150 mg PO BID cholecalciferol (vitamin D3) 1,250 mcg (50,000 unit) capsule 1,250 mcg PO lisdexamfetamine 20 mg capsule 20 mg PO DAILY Ingrezza 40 mg capsule 40 mg PO DAILY Follow Up/Referrals: Kika Johnston PA-C [Primary Care Provider] - Stand Alone Forms: [facility] Info Instructions
--- OUTSIDE RECORDS SUMMARY | 2024-09-13 08:33 | XMS_ITS | Clinical Summary ---
Author Organization [facility] Address [address] [place] [id number] Care Team Providers Care Trader Name Role Phone Kika Johnston Primary Care [...] (1 - 1-dose 75+ series) 2055 Insurance [facility] MEDICARE ADVANTAGE [employer] [facility]/[facility] Care Teams Trader Relationship Specialty Start Date End Date Kika Johnston PA [address] [place] [address] PCP - General 01/06/23
--- OUTSIDE RECORDS SUMMARY | 2024-09-13 08:33 | XMS_ITS | Clinical Summary ---
Author Organization [facility] [employer] [facility] Address [address] [place] [address] Care Team Providers Care Stage Rigger Name Role Phone Kika Johnston Primary Care [...] venlafaxine Recent encounter dx: 06/17/22: Appointment - [facility] 01/05/22: Support OP Encounter - [facility] 11/19/21: Appointment - [facility] 11/14/21: Support OP Encounter - [facility] 05/26/21: Appointment - [facility] Recent notes: 02/21/24: Progress Notes - Nursing Notes by MILLY Palm ... [+] ? Personality disorder (HC) 02/19/24: [facility] by Magaly Pittman MD ... [+] Jennifer Tellez is a 43 y.o. female with PMH ADD, MDD/JOSUE, personality disorder, whom I am seeing at the [facility] in f/u for lower extremity venous insufficiency symptoms. ... [+] ? Personality disorder (HC) 07/26/2017 07/12/23: H&P - Preoperative Consultation by MILLY Palm ... [+] ? Personality disorder (HC) F60.9 05/12/23: ED Provider Note by MILLY Rondon ... [+] Personality disorder (HC) 03/14/23: Progress Notes - Vascular & Endovascular Surgery- [facility] VASCULAR [facility]GERY [facility] CONSULT by Magaly Pittman MD ... [+] Jennifer Tellez is a 42 y.o. female with PMH ADD, MDD/JOSUE, personality disorder, whom I am seeing at the [facility] in consultation for lower extremity [...] Care Team Description 09/12/2024 Travel 09/10/2024 Refill [facility] [address] [place] [address] Kika Johnston PA Refill Request (Prochlorperazine) 09/07/2024 Travel 09/03/2024 8:40 AM CDT Telemedicine [facility] [address] [place] [address] Lyric Collins NP Error-please disregard 09/03/2024 Travel 08/28/2024 Travel 08/26/2024 10:25 AM CDT Office Visit [facility] [address] [place] [address] Ray Urias MD Fatigue (over a week); Extremity Weakness 08/26/2024 Travel 08/22/2024 2:40 PM CDT Telemedicine [facility] [address] [place] [address] Hector Baez MD Musculoskeletal Problem (Follow up neck pain ) 08/22/2024 Travel 08/21/2024 2:20 PM CDT Telemedicine [facility] [address] [place] [address] Kika Johnston PA Telehealth (Med check - would like to stop the methocarbamol and fill flexeril again ) 08/21/2024 Travel 08/20/2024 Travel 08/17/2024 Travel 08/13/2024 8:50 AM CDT Telemedicine [facility] [address] [place] [address] Kika Johnston PA Telehealth (Med check - lyrica) 08/13/2024 Travel 08/04/[address] [address] Kika Johnston PA Refill Request (Valacyclovir) 08/01/2024 8:10 AM CDT Telemedicine [address] [address] Kika Johnston PA Telehealth (Increased Nerve pain , would like to discuss options); Concerns (Had endoscopy yesterday, found out she had a hiatal hernia) 07/31/2024 Travel 07/30/2024 Telephone [facility] [address] [place] [address] Kika Johnston PA Questions (Billing Questions ) 07/27/[address] [address] Kika Johnston PA Refill Request (Gabapentin) 07/25/[address] [place] [address] Kika Johnston PA Refill Request (Polyethylene Glycol, Methocarbamol) 07/24/2024 8:10 AM TRUCK ENGINE TECHNICIAN Telemedicine [facility] [address] [place] [address] Kika Johnston PA Telehealth (Phentermine , weighed herself this morning 265.8 lbs, wondering if she can increase to full tab) 07/22/2024 Travel 07/16/2024 Medical Messaging [facility] [address] [place] [address] Kika Johnston PA EGD 07/10/2024 11:30 AM TRUCK ENGINE TECHNICIAN Telemedicine [facility] [address] [place] [address] Kika Johnston PA Telehealth (Heartburn that has gotten worse - has been taking 40 mg of omeprazole and tums) 07/10/2024 Refill [facility] [address] [place] [address] Kika Johnston PA Refill Request (Ondansetron) 07/09/2024 Orders Only [facility] Scanner 1 scan: (1-Ord) [facility], FLUOROSCOPICALLY GUIDED THERAPEUTIC C7-T1 INTERLAMINAR CERVICAL EPIDURAL INJECTION, 07/09/2024 07/07/2024 Travel 07/06/2024 3:45 PM TRUCK ENGINE TECHNICIAN Telemedicine [facility] [place] [address] Jose Montero MD 07/06/2024 Travel 07/01/2024 2:40 PM TRUCK ENGINE TECHNICIAN Telemedicine [facility] [address] [place] [address] Kika Johnston PA Telehealth (Would like to discuss getting prescription for phentermine, is planning to start an exercise plan) 06/28/2024 Refill [facility] [address] [place] [address] Kika Johnston PA Refill Request (Diclofenac) 06/27/2024 10:00 AM TRUCK ENGINE TECHNICIAN Telemedicine [facility] [address] [facility] [address] Hector Baez MD Musculoskeletal Problem (Follow up neck pain) 06/27/2024 Travel 06/26/2024 8:00 AM TRUCK ENGINE TECHNICIAN Procedure Only [facility] [address] [facility] [place] [address] Alex Thompson L Ac Acupuncture 06/26/2024 Travel 06/23/2024 Travel 06/17/2024 11:00 AM TRUCK ENGINE TECHNICIAN Procedure Only [facility] [address] [facility] [address] Alex Thompson L Ac Acupuncture 06/17/2024 Travel [...] Sex Assigned at Female 05/21/2021 8:17 AM TRUCK ENGINE TECHNICIAN Legal Sex Female 5:18 AM TRUCK ENGINE TECHNICIAN Gender Identity Female 05/21/2021 8:17 AM TRUCK ENGINE TECHNICIAN Sexual Orientation Straight 02/13/2021 3: 53 AM [...] Info) Description 09/20/2024 8:50 AM CDT Telemedicine [facility] [address] [place] [address] Kika Johnston PA [address] [place] [address] Health Maintenance Due Date Last Done Comments Pneumococcal series for age 6-49 (1 of 2 - PCV) 1999 Pap test for age 21-65 11/02/2019 7, 08/11/2014 (Completed outside of [facility]), 07/21/2009, Additional history exists COVID-19 vaccine series [...] CONSULT TO GASTROENTEROLOGY Routine 07/23/2024 8:14 PM TRUCK ENGINE TECHNICIAN Gastroesophageal reflux disease, unspecified whether esophagitis present SCAN-OPERATIVE/PROCEDURE REPORT 07/09/2024 12:00 AM TRUCK ENGINE TECHNICIAN ACUPUNCTURE PLAN OF CARE Routine 025 7:46 AM TRUCK ENGINE TECHNICIAN Other low back pain ACUPUNCTURE PLAN OF CARE Routine 025 10:46 AM TRUCK ENGINE TECHNICIAN Other low back pain GUEST SERVICES DIRECTOR THIN PREP PAP SCREEN IMAGED Routine 11/01/2016 [...] 11.0 thou/cu mm 09/12/2024 10:18 PM CDT [facility] RED BLOOD COUNT 4.66 4.00 - 5.20 mil/cu mm 09/12/2024 10:18 PM CDT [facility] HEMOGLOBIN 12.6 12.0 - 16.0 g/dL 09/12/2024 10:18 PM CDT [facility] HEMATOCRIT 39.6 33.0 - 51.0 % 09/12/2024 10:18 PM CDT [facility] MCV 85 80 - 100 fL 09/12/2024 10:18 PM CDT [facility] MCH 27.0 26.0 - 34.0 pg 09/12/2024 10:18 PM CDT [facility] MCHC 31.8(L) 32.0 - 36.0 g/dL 09/12/2024 10:18 PM CDT [facility] RDW 13.7 11.5 - 15.5 % 09/12/2024 10:18 PM CDT [facility] PLATELET COUNT 402 140 - 440 thou/cu mm 09/12/2024 10:18 PM CDT [facility] MPV 8.9 6.5 - 11.0 fL 09/12/2024 10:18 PM CDT [facility] NRBC 0.0 % 09/12/2024 10:18 PM CDT [facility] ABS NRBC 0.0 thou /cu mm 09/12/2024 10:18 PM CDT [facility] % NEUT 60.8 % 09/12/2024 10:18 PM CDT [facility] % LYMPH 27.8 % 09/12/2024 10:18 PM CDT [facility] % MONO 5.8 % 09/12/2024 10:18 PM CDT [facility] % EOS 4.2 % 09/12/2024 10:18 PM CDT [facility] % BASO 0.8 % 09/12/2024 10:18 PM CDT [facility] % IMMATURE GRAN (METAS,MYELOS,IA OS) 0.6 % 09/12/2024 10:18 PM CDT [facility] ABSOLUTE NEUTROPHILS 6.7 1.7 - 7.0 thou/cu mm 09/12/2024 10:18 PM CDT [facility] ABSOLUTE LYMPHOCYTES 3.1(H) 0.9 - 2.9 thou/cu mm 09/12/2024 10:18 PM CDT [facility] ABSOLUTE MONOCYTES 0.6 <0.9 thou/cu mm 09/12/2024 10:18 PM CDT [facility] ABSOLUTE EOSINOPHILS 0.5(H) <0.5 thou/cu mm 09/12/2024 10:18 PM CDT [facility] ABSOLUTE BASOPHILS 0.1 <0.3 thou/cu mm 09/12/2024 10:18 PM CDT [facility] ABSOLUTE IMMATURE GRANULOCYTES(MET ,MYELOS,PROS) 0.1 <0.3 thou/cu mm 09/12/2024 10:18 PM CDT [facility] Blood BLOOD SPECIMEN / Unknown [facility] / Unknown 09/12/2024 1:18 PM CDT 09/12/2024 1:18 PM CDT Kika ATKINS HEMATOLOGY Final R esult Performing Organization Address [facility] Co de Phone Number [facility] [employer] [facility] [address] [place] [address], [place] * RETICULOCYTES [83353.0] (09/12/2024 1:18 PM CDT) [facility] RETIC% 1.5 0.5 - 1.5 % 09/12/2024 10:18 PM CDT [facility] RETIC (ABSOLUTE) 0.07 0.03 - 0.08 mil/cu mm 09/12/2024 10:18 PM CDT [facility] Blood BLOOD SPECIMEN / Unknown [facility] / Unknown 09/12/2024 1:18 PM CDT 09/12/2024 1:18 PM CDT Kika ATKINS HEMATOLOGY Final R esult Performing Organization Address [facility] Co de Phone Number [facility] [employer] [facility] [address] [place] [address], [place] * (ABNORMAL) CBC AND DIFFERENTIAL (08/26/2024 10:52 AM CDT) [facility] WHITE BLOOD CELL COUNT 13.5(H) 3.8 - [...] MD HEMATOLOGY Final Result Performing Organization Address City/State/[facility] Co de Phone Number [facility] [address] [place] [address], [facility] [address] [place] [address] * FERRITIN (08/26/2024 10:52 AM CDT) FERRITIN 62 16 - 232 ng/mL [facility] Blood BLOOD SPECIMEN / Unknown 08/26/2024 10:52 AM CDT 08/26/2024 10:52 AM CDT Ray Urias MD CHEMISTRY Final Result [facility] [address] [place] [address], [employer] a Division of [facility] [address] [place] [address] * SCAN-OPERATIVE/PROCEDURE REPORT (07/31/2024 1:30 PM CDT) Narrative Procedure Note Vanessa Nogueira MD - 07/31/2024 12:32 PM CDT [facility] [address] [facility], [address], [place] [address] Patient Name: Jennifer Tellez Gender: Female Exam Date: 07/31/2024 Visit Number: [id number] Age: 44 Years Date of : 1980 Attending MD: Vanessa Nogueira MD Medical Record#: [id number] ----- Procedure: Upper GI Endoscopy Indications: Reflux [...] Performed C: Performed Electronically signed by: Bryan iL MD Interpreted at [facility], [address] [address] _Electronically signed by: Vanessa Nogueira MD 07/31/2024 cc: Kika ATKINS Vanessa Nogueira MD OTHER Final Result * SCAN-OPERATIVE/PROCEDURE REPORT (07/09/2024 12:00 AM TRUCK ENGINE TECHNICIAN) us Scanner OTHER Final Result * GUEST SERVICES DIRECTOR THIN PREP PAP SCREEN IMAGED (11/01/2016 2:40 PM CDT) Case Report Gynecologic Cytology Report Case: [id number] Authorizing Provider: Jodee Velazquez PA Collected: 11/01/2016 1440 Ordering Location: [facility] Received: 11/01/2016 1440 Clinic First Screen: Daniela Whelan Specimen: GUEST SERVICES DIRECTOR ThinPrep Vial Screening, Cervical 11/08/2016 4:40 PM CDT [facility] [employer] [facility] INTERPRETATION/ RESULT NEGATIVE FOR INTRAEPITHELIAL LESION OR MALIGNANCY (NIL) (none) 11/08/2016 4:40 PM CDT [facility] at 1640 CDT SPECIMEN ADEQUACY Satisfactory for evaluation No endocervical component seen 11/08/2016 4:40 PM CDT [facility] HPV REQUEST HPV if ASCUS 11/08/2016 4:40 PM CDT [facility] [employer] [facility] Date of LMP 10/18/16 11/08/2016 4:40 PM CDT [facility] Last Pap Date May 2014 11/08/2016 4:40 PM CDT [facility] Last Pap Result NIL 7 4:40 PM CDT [facility] Abnormal Pap or Pilger Bx in last 5 years No 11/08/2016 4:40 PM CDT [facility] Menstrual Status Regular Periods 11/08/2016 4:40 PM CDT [facility] Pilger Bx Done Today No 11/08/2016 4:40 PM CDT [facility] Additional Information None given 11/08/2016 4:40 PM CDT [facility] Automated Review Successful 11/08/2016 4:40 PM CDT [facility] Comment:Specimen processed s uccessfully by automated hob machine operator device, ThinPrep Imaging System, [employer] Note The pap test is a screening technique, not a diagnostic procedure. It is used primarily to screen for squamous cancers and precursor lesions. Published studies have shown that it is subject to both false negative and false positive results. The pap test should not be used as the sole means to diagnose or exclude pre-malignant and malignant lesions. Interpreted at [facility] (Central Lab, [facility], [facility], [facility], [facility], [facility], [facility]) 11/08/2016 4:40 PM CDT [facility] Other (Cervical) 11/01/2016 2:40 PM CDT 11/01/2016 2:40 PM CDT Jodee ATKINS PATHOLOGY/CYTOLOGY Final R esult Performing Organization Address City/[facility]/ZIP Co de Phone Number [facility] [address] [place] [phone], [place] * ANTI HCV (11/01/2016 2:38 PM CDT) HEPATITIS C ANTIBODY Non-Reacti ve Non-Reacti ve 11/01/2016 8:25 PM CDT [facility] Blood BLOOD SPECIMEN / Unknown Venipuncture / Unknown 11/01/2016 2:38 PM CDT 11/01/2016 2:38 PM CDT Narrative [facility] - 11/01/2016 8:25 PM CDT Antibodies to HCV not detected; does not exclude the possibility of exposure to HCV. Jodee ATKINS SEND OUTS Final Resu lt [facility] [address] [place] [address], [place] * ANTI HIV 1/2 (11/01/2016 2:38 PM CDT) HIV-1/HIV-2 ANTIBODY Non-Reacti ve Non-Reacti ve 11/01/2016 8:26 PM CDT [facility] Blood BLOOD SPECIMEN / Unknown Venipuncture / Unknown 11/01/2016 2:38 PM CDT 11/01/2016 2:38 PM CDT Narrative [facility] - 11/01/2016 8:26 PM CDT HIV-1 p24 and HIV-1/HIV-2 Ab not detected us Jodee ATKINS SEND OUTS Final Resu lt [facility] [address] [place] [address], from Last 3 Months or Most Recently Relevant to Health Maintenance Insurance [facility] MEDICARE PART A HB ONLY MEDICARE PART B HB ONLY [facility] MR HB ONLY [facility] MEDICA PMAP HB ONLY [facility] MR MACY OLGUIN WC [employer] [facility] ATTN: [place] [address] Advance Directives Documents on File Type Date Recorded Patient Pipe Puller Expl anation Healthcare Directive 04/16/2024 3:07 PM [...] Preferences, Provider to review later Care Teams Stage Rigger Relationship Specialty Start Date End Date Kika Johnston PA [address] [place] [address] PCP - General Physician Long Term Care Administrator 02/11/21
--- OUTSIDE RECORDS SUMMARY | 2024-09-13 08:33 | XMS_ITS | Referral Summary ---
Author Organization [facility] Address [address] [place] [address] Care Team Providers Care Health And Wellness Instructor Name Role Phone Kika Johnston Primary Care [...] Plan of Treatment Not on file Insurance [facility] MEDICARE ADVANTAGE MEDICA SNBC/MSC Care Teams Health And Wellness Instructor Relationship Specialty Start Date End Date Kika Johnston PA [address] [place] [address] PCP - General 01/06/23
[2024-09-13 08:40] VITALS: BP 129/83; PULSE 98; RESP 18; TEMP 36.3
== END 2024-09-13 08:40 | disposition home or self-care (01) ==
PROVIDERS: Emergency Provider Internal Medicine; PCP Physician Assistant Medical
DX: R25.1 Tremor, unspecified (principal)
CPT/HCPCS: 99283

== ENCOUNTER 2025-01-27 10:22 | Outpatient (CLI) | payer MEDICARE, OTHER, SELFPAY | END 2025-01-27 10:23 | disposition home or self-care (01) | LOC: AMB 01-30 13:10 | PROVIDERS: PCP Physician Assistant Medical; Visit Provider Family Medicine | DX: M54.9 Dorsalgia, unspecified (principal) | CPT/HCPCS: A0425; A0427 ==

== ENCOUNTER 2025-01-27 10:54 | Emergency (ER) | payer MEDICARE, OTHER, SELFPAY ==
--- OUTSIDE RECORDS SUMMARY | 2023-06-02 08:33 | XMS_ITS | Continuity of Care Document ---
Author Organization [facility] Address [address] [place] [address] Phone Care Team Providers Care Program Development Specialist Name Role Phone Tram Cordoba DNP Unavailable Unavailab le Allergies, Adverse Reactions, Alerts Substance Reaction Status Criticality CEPHALEXIN MONOHYDRATE Active No In formation shellfish derived Active No Informa tion PENICILLIN Active No Information Medications Medication Instructions Dosage Effective Dates (start - stop) Status Comments baclofen 10 mg tablet Take 1 Tablet (10 mg) by mouth three times daily. Dose increase. - Active gabapentin 300 mg capsule TAKE 1 CAPSULE BY MOUTH FOUR TIMES A DAY - Active acetaminophen 500 mg tablet TAKE 2 CAPSULES (1000MG) BY MOUTH EVERY SIX HOURS NEEDED MAX 4000MG/ DAY - Active naproxen 500 mg tablet Take 1 Tablet (50 0 mg) by mouth two times daily. - Active albuterol sulfate HFA 90 mcg/actuation aerosol inhaler Inhale 1-2 Puffs by mouth every 4 hours if needed for Wheezing. - Active famotidine 20 mg tablet Take 20 mg by mouth at bedtime. - Active epinephrine 0.3 mg/0.3 mL injection, auto-injector Inject 0.3 mg intramuscular each time if needed for Allergic Reaction. - Active clotrimazole 1 % topical cream Apply topically to affected area(s) two times daily. - Active valacyclovir 500 mg tablet TAKE 1 TABLET BY MOUTH DAILY - Active citalopram 20 mg tablet Take 1 Tablet (20 mg) by mouth every morning. - Active Senexon-S 8.6 mg-50 mg tablet TAKE 2 TABLETS BY MOUTH TWICE A DAY - Active omeprazole 20 mg tablet,delayed release Take 1 Tablet (20 mg) by mouth once daily before a meal. - Active lidocaine 5 % topical patch Apply 1 Patch on dry, clean, hairless skin once daily. - Active hydroxyzine pamoate 25 mg capsule Take 2 Capsules (50 mg) by mouth 3 times daily if needed for Anxiety. - Active aripiprazole 10 mg tablet Take 1 Tablet by mouth once daily. - Active buspirone 10 mg tablet Take 1 Tablet (10 mg) by mouth 3 times daily. - Active lamotrigine 25 mg tablet Take 2 Tablets by mouth once daily. - Active mirtazapine 7.5 mg tablet Take 1 Tablet by mouth at bedtime. - Active bupropion HCl XL 300 mg 24 hr tablet, extended release Take 1 Tablet by mouth once daily. - Active Procedures Procedure Date OFFICE/OUTPATIENT VISIT, [facility] Advance Directives Directive Yes / No Effective Date File Name No Information Encounters Encounter Description Practice Location Reason(s) For Visit Diagnoses Date Provider Providers Copied on Encounter [facility], [address] [place] [address], [id number] , [place] tel:[phone] [facility] No Information 4 Beryl Ugalde. [address], [place], [place], [id number], [place]. tel:[phone] OFFICE/OUTPA TIENT VISIT, [facility], [address], [place], [id number] , [place] tel:[phone] [facility] back pain (chief complaint) Chronic pain syndromePain in thoracic spineLow back pain, unspecifiedOther usp (current) drug therapyMental disorder, not otherwise specifiedPain in left hip 3 Beryl Ugalde. [address], [place], [place], [id number], [place]. tel:[phone] Referring Provider: [facility], [place], [address]. tel:[phone] [facility], [address] [place], [id number] , [place] tel:[phone] [facility] [place] No Information 3 Pam Meneses. [place], [address], [place], [address], [place]. tel:[phone] Family History Family Member Type Diagnosis Age At Onset No Information Payers Payer name Insurance type Covered libertarian ID Authoriza tion(s) [facility] MedicareComplete Replacement [id number] [employer] [facility] [id number] Social History Type Description Quantity Date Captured Comments Alcohol Use Details Unknown Caffeine Use Details Unknown Tobacco Use Status No Information Smoking Status No Information Sex Female Chief Complaint And Reason For Visit No Information Reason For Referral Reason For Referral No Information Plan Of Treatment Date Type Action Status Goal Hepatitis C screening. Due o n due Goal Review Allergy List. Due on due Goal PHQ-9. Due on du e Goal Height. Due on d ue Goal Weight. Due on d ue Goal Unhealthy drug use screening . Due on due Goal Medication Reconciliation. D ue on due Goal Tobacco Use. Due on due Goal Lipid panel. Due on due Goal Update Social History. Due o n due Goal HPV. Due on due Goal Review Allergy List. Due on due Goal Tobacco Use. Due on 023 due Goal Unhealthy drug use screening . Due on due Goal Height. Due on d ue Goal Weight. Due on d ue Goal Update Social History. Due o n due Goal Lipid panel. Due on 023 due Goal Hepatitis C screening. Due o n due Goal HPV. Due on due Goal PHQ-9. Due on du e Goal Medication Reconciliation. D ue on due Goal Lifestyle education regardin g diet completed History Of Present Illness Encounter Date Complaint History Of Prese nt Illness Comments: This i s my first evaluation of the patient. Outside records from [facility] are available for review.Jennifer is a 43 y/o female here for initial consult for widespread pain, referred by Kika Johnston PA-C, through [facility]. Pain started September 2022 after a L hip replacement and has worsened since. She describes pain as sharp and aching and rates the pain severity 10/10.Reports that she has low, mid, and upper back pain, as well as L hip and neck pain. She states she fractured and displaced her L hip without injury 09/2022 and subsequently had a L hip replacement. After the replacement, she has noticed worsening back pain - most bothersome to the low back. States her low back gives out when walking and has a sharp pain across her back. Feels as though her back gives out when walking, although does not have any leg pain. Reports muscle spasms of her back as well. States she has scoliosis and 6 lumbar discs. Expresses interest in a lumbar and thoracic MRI today as she hasn't had one previously.Mentions that she recently was found to have thrombophlebitis in her foot and was prescribed Elliquis 5mg BID for the next couple of months.She has tried a L hip injection, without lasting relief. Has had TPIs near her shoulder blades with some relief. Continues with PT. Would like to pursue an LUCAS for her low back. The patient is currently managed on gabapentin 300mg 4 tabs/day, baclofen 10mg 3 tabs/day, Salem, tylenol 500mg, and excedrin for her pain. Does not find baclofen helpful for her pain. Gabapentin is prescribed through her PCP for anxiety, but does follow with a psychiatrist regularly. Finds Salem helpful for her pain and would like to be prescribed Salem until she pursues an LUCAS. She last picked up Salem [phone] #16 on 04/12/2023, prescribed by Kika Johnston PA-C, through [facility].Of note, patient states she has hx of alcohol abuse and has been sober for 6 years. Has completed outpatient and inpatient treatment. Continues with regular AA meetings. Also has a hx of meth and adderall abuse documented in her records from 2014. Jennifer is interested in all treatment options through [facility]. No other concerns today.Treatments Tried: PT- done at [facility]- Will be starting thisTylenolExcedrinHeatIceBaclofen- not helpfulGabapentin- for anxiety (300 QID)Methocarbamol- helpful temporarilyTizanidine- made her feel sickFlexeril- Not helpful TPI- a little bit helpful back pain Severity level i s 10. Duration: chronic. It occurs persistently. The client describes the pain as an ache and sharp. Symptoms are aggravated by bending, standing, twisting, walking, housework and movement. Symptoms are relieved by heat, lying down, pain meds/drugs, physical therapy, stretching and sitting. Functional Status Date Functional Assessmen t No Information Instructions Date Instruction Additional Infor jess Lifestyle education regarding di et Related to Body mass index [BMI] 40.0-44.9, adult Assessments Type Assessment Date No Information Patient Care Teams Name Effective Dates (start - stop) Status Members No Information
--- OUTSIDE RECORDS SUMMARY | 2025-01-27 10:56 | XMS_ITS | Clinical Summary ---
Author Organization [facility] Address [address] [place] [address] Care Team Providers Care Trans Router Name Role Phone Kika Johnston Primary Care [...] Vaccine (1 of 2 - PCV) 1999 HPV Vaccine (1 - 3-dose SCDM series) 2007 Adult Tetanus Booster 04/15/2024 04/15/2014 , 08/05/2005, 08/05/2005, Additional history exists COVID-19 Vaccine (1 - 2023- season) 2025 Influenza Vaccine (#1) 2025 02/18/2017, 2014 RSV Vaccines (1 - 1-dose 75+ series) 2055 Meningococcal B Vaccine Aged Out No l onger eligible based on patient's age to complete this topic Insurance [facility] MEDICARE ADVANTAGE MEDICA SNBC/MSC Care Teams Trans Router Relationship Specialty Start Date End Date Kika Johnston [place] [address] PCP - General 01/06/23
--- OUTSIDE RECORDS SUMMARY | 2025-01-27 10:56 | XMS_ITS | Clinical Summary ---
Author Organization [facility] Address [address] [place] [address] Care Team Providers Care Rayon Winder Name Role Phone Kika Johnston Primary Care Provider Allergies Active Allergy Reactions Criticality Noted Date Comments Baclofen Other - Describe In Comment Field 01/23/2024 Addiction Cephalexin Rash Medium 08/23/2006 Penicillins Rash Medium 08/23/2006 Phentermine Other - Describe In Comment Field 09/23/2024 Addictive behavior Shellfish Containing Products Anaphylaxis High 12/19/2007 Medications hydrOXYzine pamoate (VISTARIL) 50 mg capsule 024 Active mirtazapine (REMERON) 15 mg tablet Take 15 mg by mouth at bedtime. 024 Active Ingrezza 40 mg capsule 024 Active venlafaxine (EFFEXOR XR) 75 mg cp24 Extended-Release capsule Take 75 mg by mouth once daily with a meal. 024 Active lidocaine 5 % topical patchIndications: Other chronic pain,Hip pain, right Apply 1 Patch on dry, clean, hairless skin once daily. 30 Patch 3 025 Active omeprazole 40 mg Delayed-Release capsuleIndication s:Gastroesophagea l reflux disease, unspecified whether esophagitis present Take 1 Capsule (40 mg) by mouth once daily before a meal. Dose increase. 90 Capsule 1 025 Active acetaminophen 500 mg tabletIndications :Muscle spasm,Chronic bilateral low back pain, unspecified whether sciatica present,Other chronic pain Take 2 Tablets (1,000 mg) by mouth every 6 hours if needed for Pain. 100 Tablet 3 025 Active Senexon-S 8.6-50 mg tabletIndications :Constipation, unspecified constipation type TAKE 1 TO 2 TABLETS BY MOUTH TWICE A DAY 180 Tablet 5 025 Active loratadine 10 mg tabletIndications :Allergic rhinitis due to pollen, unspecified seasonality Take 1 Tablet (10 mg) by mouth once daily. 90 Tablet 3 025 Active diphenhydrAMINE 25 mg capsuleIndication s:Seasonal allergies Take 1 Capsule (25 mg) by mouth every 6 hours if needed (itching, allergies). 120 Capsule 3 025 Active gabapentin 100 mg capsuleIndication s:Upper back pain,Muscle spasm,Chronic bilateral low back pain, unspecified whether sciatica present Take 2 Capsules (200 mg) by mouth three times daily. 540 Capsule 025 Active cholecalciferol (Vitamin D-3) 2,000 unit capsuleIndication s:Vitamin D deficiency Take 1 Capsule (2,000 units) by mouth once daily. 90 Capsule 3 025 Active ferrous sulfate (FeroSuL) 325 mg (65 mg iron) tabletIndications :Iron deficiency anemia, unspecified iron deficiency anemia type Take 1 Tablet (325 mg) by mouth once daily with a meal. 90 Tablet 3 025 Active EPINEPHrine 0.3 mg/0.3 mL auto-injectorIndi cations:Anaphylax is, sequela Inject 0.3 mg intramuscular each time if needed for Allergic Reaction. 2 Each 025 Active valACYclovir 1 gram tabletIndications :Genital herpes simplex, unspecified site TAKE 1 TABLET BY MOUTH DAILY 30 Tablet 11 025 Active albuterol HFA (PRO-AIR; VENTOLIN; PROVENTIL) 90 mcg/actuation inhalerIndication s:Moderate persistent asthma without complication (HC) Inhale 1-2 Puffs by mouth every 4 hours if needed for Wheezing. 1 Each 1 025 Active ondansetron (ZOFRAN ODT) 4 mg disintegrating tabletIndications :Nausea Place 1 Tablet (4 mg) on the tongue every 8 hours if needed for Nausea/Vomiting . 30 Tablet 025 Active prochlorperazine (COMPAZINE) 10 mg tabletIndications :Nausea TAKE ONE TABLET BY MOUTH EVERY 8 HOURS NEEDED NAUSEA, VOMITING 20 Tablet 3 025 Active cyclobenzaprine (FLEXERIL) 10 mg tabletIndications :Upper back pain,Muscle spasm Take 1 Tablet (10 mg) by mouth 2 times daily if needed for Muscle Spasm. 28 Tablet 5 025 Active fluconazole (DIFLUCAN) 150 mg tabletIndications :Tinea versicolor Take 300 mg once weekly x 2 weeks 4 Tablet 025 Active meloxicam 15 mg tabletIndications :Other chronic pain,Upper back pain,Hip pain, right,DDD (degenerative disc disease), cervical,Muscle spasm TAKE 1 TABLET BY MOUTH ONCE DAILY 30 Tablet 025 Active meloxicam 15 mg tabletIndications :Other chronic pain,Upper back pain,Hip pain, right,DDD (degenerative disc disease), cervical,Muscle spasm Take 1 Tablet (15 mg) by mouth once daily. 30 Tablet 1 025 2024 Discontinued HYDROcodone-aceta minophen (5-325 mg/tablet)Indicat ions:Cervical radiculopathy Take 1 Tablet by mouth 3 times daily if needed for Pain. Max acetaminophen dose: 4000 mg in 24 hrs. 21 Tablet 025 2024 Discontinued(* Patient states no longer taking) cyclobenzaprine (FLEXERIL) 10 mg tabletIndications :Upper back pain,Muscle spasm Take 1 Tablet (10 mg) by mouth 2 times daily if needed for Muscle Spasm. 14 Tablet 1 025 2024 Discontinued(R eorder (E-cancel not sent)) Active Problems [...] venlafaxine Recent encounter dx: 06/17/22: Appointment - [facility] 01/05/22: Support OP Encounter - [facility] 11/19/21: Appointment - [facility] 11/14/21: Support OP Encounter - [facility] 05/26/21: Appointment - [facility] Recent notes: 02/21/24: Progress Notes - Nursing Notes by MILLY Palm ... [+] ? Personality disorder (HC) 02/19/24: Progress Notes - Vascular & Endovascular Surgery- [facility] - VASCULAR SURGERY CLINIC CONSULT by Magaly Pittman MD ... [+] Jennifer Tellez is a 43 y.o. female with PMH ADD, MDD/JOSUE, personality disorder, whom I am seeing at the [facility] in f/u for lower extremity venous insufficiency symptoms. ... [+] ? Personality disorder (HC) 07/26/2017 07/12/23: H&P - Preoperative Consultation by MILLY Palm ... [+] ? Personality disorder (HC) F60.9 05/12/23: ED Provider Note by MILLY Rondon ... [+] Personality disorder (HC) 03/14/23: Progress Notes - Vascular & Endovascular Surgery- [facility] - VASCULAR SURGERY CLINIC CONSULT by Magaly Pittman MD ... [+] Jennifer Tellez is a 42 y.o. female with PMH ADD, MDD/JOSUE, personality disorder, whom I am seeing at the [facility] in consultation for lower extremity [...] Encounters Date Type Department Care Team Description 01/17/2025 Travel 01/09/2025 Refill [facility] [address] [place] [address] Kika Johnston PA Refill Request (Meloxicam) 01/08/2025 10:10 AM CDT Telemedicine [facility] [address] [place] [address] Kika Johnston PA Telehealth (Rash all over back, red - round circles - itchy) 12/30/2024 8:30 AM CDT Nurse/Clinic Staff Only [address] [place] [address] Testing (HST Download and Return) 12/30/2024 Travel 12/28/2024 Procedure Only [address] [place] [address] Isael Leblanc MD Results (HST) 12/27/2024 2:00 PM CDT Nurse/Clinic Staff [place] [address] [place] [address] Testing (HST Setup) 12/27/2024 Travel 12/24/2024 Travel 12/20/2024 8:30 AM CDT Telemedicine [address] [address] Kika Johnston PA Telehealth (Following up on nerve pain - still in pain. Would like referral to pain clinic) 12/15/2024 Travel 12/11/2024 10:30 AM CDT Telemedicine [address] [place] [address] Kika Johnston PA Telehealth (Neck pain since - pain radiates down her shoulders / arms) 12/06/2024 Travel 12/02/2024 Orders Only [address] [place] [address] Hector Baez MD 1 scan: (1-Ord) RAYUS, MR LUMBAR SPINE WO CON, 11/28/2024 11/26/2024 8:10 AM CDT Telemedicine [address] [place] [address] Kika Johnston PA Telehealth (Med check - tiZANidine 4 mg tablet, needs refills) 11/26/[address] [facility] [place] [address] Hector Baez MD Refill Request (Tizanidine) 11/21/2024 Orders Only [facility] Scanner 1 scan: (1-Ord) RAYUS RADIOLOGY, CERVICAL INTERLAMINAR EPIDUROGRAPHY AND THERAPEUTIC INJ, 11/21/2024 11/21/2024 Travel 11/15/2024 1:40 PM CDT Telemedicine [facility] [address] [facility] [place] [address] Hector Baez MD Musculoskeletal Problem (Follow up low back and neck pain ) 11/14/2024 Telephone [facility] [address] Hector Baez MD Appointment 11/13/2024 Travel 11/13/2024 Telephone [facility] [place] [address] Hector Baez MD Appointment 11/11/2024 Travel 11/04/2024 8:30 AM CDT Nurse/Clinic Staff Only [place] [address] [facility] [place] [address] Testing (HST Return/Download.) 11/04/2024 Telephone [facility] [place] [address] Kika Johnston PA 11/04/2024 Travel 11/02/2024 Travel 11/01/2024 2:00 PM CDT Nurse/Clinic Staff Only [address] [place] [address] [place] [address] Testing (HST Setup) 11/01/2024 Travel 10/30/2024 9:30 AM CDT Telemedicine [address] [place] [address] [place] [address] Kika Johnston PA Telehealth (Med check - switching pharmacy to mailorder, needs refills sent) 10/30/2024 Travel 10/30/2024 Telephone [facility] [address] [place] [address] Kika Johnston PA Questions (valACYclovir 1 gram tablet) from Last 3 Months Immunizations Immunization Administration [...] Family History Medical History Relation Name Comments Alcoholism Father 2000 Cancer Father 1999 AML Alcohol/Drug Mother Cheryln bipolar? Depression Mother Cheryln Relation Name Status Comments Daughter Alive Father 2000 Mother Cheryln Alive Son Alive Social History Tobacco Use [...] Sex Assigned at Female 05/21/2021 8:17 AM SENIOR AUDITOR Legal Sex Female 5:18 AM SENIOR AUDITOR Gender Identity Female 05/21/2021 8:17 AM SENIOR AUDITOR Sexual Orientation Straight 02/13/2021 3: 53 AM [...] Care Team (Late st Contact Info) Description 02/04/2025 10:50 AM CDT Telemedicine [facility] [address] [place] [address] Kika Johnston PA [address] [place] [address] 02/18/2025 2:30 PM CDT Office Visit [facility] [address] [place] [address] Isael Leblanc MD [address] [place] [address] 02/19/2025 10:00 AM CDT Office Visit [facility] [address] [place] [address] Hector Baez MD [address] [place] [address] Health Maintenance Due Date Last Done Comments Pneumococcal series for age 6-49 (1 of 2 - PCV) 1999 HPV series for age 9-45 (1 - 3-dose SCDM series) 2007 Pap test for age 21-65 11/02/2019 7, 08/11/2014 (Completed outside of [facility]), 07/21/2009, Additional history exists Depression screening for age 12+ 05/16/2024 05/16/2023, 05/12/2023, 03/02/2023, Additional history exists BMI (ht and wt on same day) for age 18+ 12/25/2024 12/26/2023, 07/12/2023, 04/05/2023, Additional history exists COVID-19 vaccine series ( season) 2025 02/12/2024, 02/21/2022, 12/07/2021, Additional history exists Influenza Vaccine (#1) 2025 , 02/13/2023, 02/21/2022, Additional history exists Tetanus booster 01/24/2029 01/24/2019, 03/23, 08/05/2005, Additional history exists RSV vaccine for adults or (1 - 1-dose 75+ series) 2055 Hepatitis B series for 19+ Completed 05/10, 05/10/2007, 11/30/2006, Additional history exists HIV for age 15-65 Completed 11/01/2016, , 09/23/2008 Hepatitis C screening for ag e 18-79 Completed 11/01/2016, 07/21/2009, 09/23/2008 Procedures Procedure Name Priority Date/Time Associated Diagnosis Comments HOME SLEEP TEST TYPE 3 PORTABLE Routine 12/28/2024 11:59 PM CDT Fatigue, unspecified type Daytime sleepiness MR SPINE LUMBAR WO Routine 11/28/2024 12 :00 AM CDT Lumbar radiculopathy Lumbar disc herniation SCAN-OPERATIVE/PROC EDURE REPORT 11/21/2024 12:00 AM CDT SEQUENCING MACHINE OPERATOR THIN PREP PAP SCREEN IMAGED Routine 11/01/2016 2:40 PM CDT Screening for malignant neoplasm of cervix ANTI HIV 1/2 Routine 11/01/2016 2:38 PM CDT Screen for STD (sexually transmitted disease) ANTI HCV Routine 11/01/2016 2:38 PM CDT Screen for STD (sexually transmitted disease) from Last 3 Months or Most Recently Relevant to Health Maintenance Results * HOME SLEEP TEST TYPE 3 PORTABLE (12/28/2024 11:59 PM CDT) Narrative Isael Leblanc MD - 12/28/2024 11:59 PM CDT Isael Leblanc MD 12/31/2024 9:44 PM Home Sleep Test Name: Jennifer Tellez Location: [facility] Study notes: This is a single night home sleep apnea test. The study is performed in the context of a clinical suspicion for sleep apnea. Jennifer Tellez ( 1980) is studied using a T3 Device using nasal pressure transducer, thoracoabdominal respiratory impedence plethysmography belts, pulse oximetry, snore microphone and actigraphy for body position. The study is scored by a RPSGT and interpreted by a Diplomate of the [place] [employer]. Raw summary data is scanned into this report as a separate document. An epoch by epoch review of the data has been performed by the interpreting physician. Scored following the AASM Manual for the Scoring of Sleep and Associated Events, V3. Respiratory Event Index (DIAMOND) Oxygen Desaturation Index (SANTOS) REI4% 8.9 ODI4%: 11 REI3% 11.4 ODI3%: 18.6 Supine DIAMOND: 14.8 Enzo Saturation 84 % Lateral DIAMOND: 8.8 Time Below 88% 3.7 minutes Weight: Wt Readings from Last 1 Encounters: 08/26/24 120.4 kg (265 lb 8 oz) Other data: Recording Duration: 420.0 minutes Time in Bed: 420 minutes Estimated sleep efficiency [%]: 98 % Oximeter Quality: 98.3 % Flow Quality: 69.7 % RIP Quality: 100.0 % Supine time: 181.8 minutes Average SpO2: 93.6 % Pulse Average: 79.0 bpm Additional Comments: None IMPRESSION: Obstructive Sleep Apnea (327.23, G47.33) RECOMMENDATIONS: - Mild sleep apnea is discovered. If there is low clinical suspicion of sleep apnea, this could be a false positive. Polysomnography could be considered. - Mild sleep apnea only needs treatment in the presence of attributable sleepiness. In the absence of symptoms, treatment may not be indicated. Clinical correlation is recommended. - Treatment options for mild sleep apnea include CPAP, a mandibular advancement device, lifestyle modifications such as weight loss, sedative/alcohol avoidance, avoiding supine sleep and surgical therapies can be considered in highly selected patients. - Consider a referral to Health Weight Management for patients with a BMI > 30. - Follow-up with a provider to discuss results is recommended. - Patients should be advised to avoid critical tasks, such as driving, whenever drowsy. - Patients should try to achieve at least 7-8 hours of sleep on a consistent basis. - The DIAMOND is a surrogate for AHI. For reimbursement and/or prior authorization purposes, it would be appropriate to list the DIAMOND as an AHI when the latter is accepted, but not the former. Isael Jungomate, Board of Sleep Medicine Recording Information Recording Date: 12/28/2024 Analysis Start Time: 10:00 PM Recording Tags: Analysis Stop Time: 4:59 AM Device Type: T3S Analysis Duration (TRT): 6h 59m Est. Total Sleep Time: 6h 59m Position and Analysis Time Duration Percentage Supine (in TST): 181.8 m 43.3 % Non-Supine (in TST): 238 m 56.7 % Upright (in TRT): 0 m 0 % Movement (in TST): 9.4 m 2.2 % Invalid Data (Excluded): 0 m 0 % Respiratory Indices Index Total Supine Non-supine Count Apneas + Hypopneas (REI3%): 11.4 /h 14.8 /h 8.8 /h 80 Apneas + Hypopneas (REI4%) 8.9 /h /h /h Apneas: 2 /h 2.3 /h 1.8 /h 14 Obstructive (OA): 1.1 /h 1.3 /h 1 /h 8 Mixed (MA): 0.1 /h 0.3 /h 0 /h 1 Central (CA): 0.7 /h 0.7 /h 0.8 /h 5 Hypopneas 3%: 9.4 /h 12.5 /h 7.1 /h 66 Hypopneas 4%: 0 /h 38 /h 28 /h 0 Respiration Rate (per m): 11.6 /m 11.1 /m 12 /m Percentage of Sleep Duration Snore: 0 % 0 % 0 % 0 m Flow Limitation: 0 % 0 % 0 % 0 m Average Snore Volume dB Percent of time greater than 80dB: Percent of 0 % Oxygen Saturation (SpO2) Total Supine Non-supine Oxygen Desaturation Index (SANTOS): 18.6 /h 21.4 /h 16.4 /h Average SpO2: 93.6 % 93.2 % 93.9 % Minimum SpO2: 84 % 84 % 85 % SpO2 Duration < 90% 1.4 % (6m) 1 % 1.8 % SpO2 Duration <= 88% 0.9 % (3.7m) 0.7 % 1.1 % Pulse in TST Quality Average: 79 bpm Oximeter: 98.3 % Maximum: 103 bpm Nasal Cannula: 69.7 % Minimum: 61 bpm Abdomen RIP: 100 % Duration < 40 bpm: 0 m Thorax RIP: 100 % Duration > 100 bpm: 0.2 m us [facility] Final R esult * MR SPINE LUMBAR WO (11/28/2024 12:00 AM CDT) Anatomical Region Laterality Modality Spine, LUMBAR SPINE Magnetic Res onance us Hector Baez MD MR Final Resu lt * SCAN-OPERATIVE/PROCEDURE REPORT (11/21/2024 12:00 AM CDT) us Scanner OTHER Final Result * SEQUENCING MACHINE OPERATOR THIN PREP PAP SCREEN IMAGED (11/01/2016 2:40 PM CDT) Case Report Gynecologic Cytology Report Case: [id number] Authorizing Provider: Jodee Velazquez PA Collected: 11/01/2016 1440 Ordering Location: [facility] Received: 11/01/2016 1440 Clinic First Screen: Daniela Whelan Specimen: SEQUENCING MACHINE OPERATOR ThinPrep Vial Screening, Cervical 11/08/2016 4:40 PM CDT [facility] INTERPRETATION/ RESULT NEGATIVE FOR INTRAEPITHELIAL LESION OR MALIGNANCY (NIL) (none) 11/08/2016 4:40 PM CDT [facility] EN[facility]AL LAB[facility] at 1640 CDT SPECIMEN ADEQUACY Satisfactory for evaluation No endocervical component seen 11/08/2016 4:40 PM CDT [facility] ENTRAL LAB[facility]ATORY HPV REQUEST HPV if ASCUS 11/08/2016 4:40 PM CDT [facility] ENTRAL LABOR[facility] Date of LMP 10/18/16 11/08/2016 4:40 PM CDT [facility] ENTRAL LAB[facility] Last Pap Date May 2014 11/08/2016 4:40 PM CDT [facility] Last Pap Result NIL 7 4:40 PM CDT [facility] Abnormal Pap or Nixon Bx in last 5 years No 11/08/2016 4:40 PM CDT [facility] Menstrual Status Regular Periods 11/08/2016 4:40 PM CDT [facility] Nixon Bx Done Today No 11/08/2016 4:40 PM CDT [facility] Additional Information None given 11/08/2016 4:40 PM CDT [facility] Automated Review Successful 11/08/2016 4:40 PM CDT [facility] Comment:Specimen processed s uccessfully by automated patient account specialist device, [employer] Imaging System, [employer] Note The pap test is a screening technique, not a diagnostic procedure. It is used primarily to screen for squamous cancers and precursor lesions. Published studies have shown that it is subject to both false negative and false positive results. The pap test should not be used as the sole means to diagnose or exclude pre-malignant and malignant lesions. Interpreted at [facility] ([facility], [facility], [facility], [facility], [facility], [facility], Pending Sale To [facility]) 11/08/2016 4:40 PM CDT [facility] EN[facility] Other (Cervical) 11/01/2016 2:40 PM CDT 11/01/2016 2:40 PM CDT us Jodee [facility] PATHOLOGY/CYTOLOGY Final R esult [facility] [address] [place] [address], [place] * ANTI HCV (11/01/2016 2:38 PM CDT) HEPATITIS C ANTIBODY Non-Reacti ve Non-Reacti ve 11/01/2016 8:25 PM CDT [facility] TRAL LABORATORY Blood BLOOD SPECIMEN / Unknown Venipuncture / Unknown 11/01/2016 2:38 PM CDT 11/01/2016 2:38 PM CDT Narrative [facility] - 11/01/2016 8:25 PM CDT Antibodies to HCV not detected; does not exclude the possibility of exposure to HCV. us Jodee ATKINS S[facility] OUT[facility] Final Resu lt [facility] [address] [place] [address], [place] * ANTI HIV 1/2 (11/01/2016 2:38 PM CDT) HIV-1/HIV-2 ANTIBODY Non-Reacti ve Non-Reacti ve 11/01/2016 8:26 PM CDT [facility] Blood BLOOD SPECIMEN / Unknown Venipuncture / Unknown 11/01/2016 2:38 PM CDT 11/01/2016 2:38 PM CDT Narrative [facility] - 11/01/2016 8:26 PM CDT HIV-1 p24 and HIV-1/HIV-2 Ab not detected us Jodee ATKINS SEND OUTS Final Resu lt [facility] [address] [place] [address], from Last 3 Months or Most Recently Relevant to Health Maintenance Insurance [facility] ATTN: [place] [address] MEDICARE PART A HB ONLY MEDICARE PART B HB ONLY [facility] HB ONLY [facility] HB ONLY [facility] MR MACY OLGUIN [facility] ATTN: [place] [address] Advance Directives Documents on File Type Date Recorded Patient Vamp Marker Expl anation Healthcare Directive 04/16/2024 3:07 PM [...] Preferences, Provider to review later Care Teams Rayon Winder Relationship Specialty Start Date End Date Kika Johnston PA [address] [place] [address] PCP - General Physician Teacher Private 02/11/21
[2025-01-27 11:05] VITALS: BP 151/95; PULSE 97; RESP 16; TEMP 35.8; O2SAT 96; BMI 38.4
--- NOTE | 2025-01-27 11:19 | ED.BACK ---
HPI - Back Pain/Injury General Time Seen by Provider: 11:19 Date Seen: 01/27/25 Chief Complaint: Back Injury/Pain Stated Complaint: Back Pain Time Seen by Provider: 01/27/25 11:18 Source: patient, RN notes reviewed and old records reviewed Mode of arrival: ambulatory Limitations: no limitations History of Present Illness HPI Narrative: Jennifer is a 44-year-old male with history of low back pain, chronic pain, bipolar II, with upcoming injection with Dr. Baez who comes to the emergency room for evaluation of increasing back pain. She comes in via EMS. This morning Jennifer states she was getting ready to take a shower simply bent over and had a popping sensation in her lower back accompanied by a sudden increased in back pain. Stay in the low back but seemed to be a little bit on the low right side. In the past patient has had left-sided pain. That is not present today. She denies the pain radiating down her leg but notes that both of her lower extremities seem weaker than normal. He did not lose control of bowel or bladder and she denies any numbness of the genital area. EMS did give the patient some fentanyl and she notes great relief with that. She notes that if she is lying still she feels okay. Movement greatly increases her discomfort. She has not had any recent trauma cough cold or fever. Related Data Home Medications ?Medication ?Instructions ?Recorded ?Confirmed acetaminophen 500 mg tablet 1,000 mg PO Q6H PRN pain 10/06/22 09/13/24 gabapentin 100 mg capsule 200 mg PO QID 10/02/23 09/13/24 loratadine 10 mg tablet 10 mg PO DAILY 10/02/23 09/13/24 mirtazapine 15 mg tablet 15 mg PO QPM 10/02/23 09/13/24 omeprazole 20 mg capsule,delayed 20 mg PO DAILY 10/02/23 09/13/24 release sennosides 8.6 mg-docusate sodium 2 tab PO BID 10/02/23 09/13/24 50 mg tablet (Senexon-S) valacyclovir 1 gram tablet 1,000 mg PO BID 10/02/23 09/13/24 albuterol sulfate 90 mcg/actuation inhalation 09/13/24 aerosol inhaler buspirone 10 mg tablet 10 mg PO 3XD 09/13/24 09/13/24 cholecalciferol (vitamin D3) 1,250 1,250 mcg PO 09/13/24 mcg (50,000 unit) capsule cyclobenzaprine 10 mg tablet 10 mg PO BID PRN 09/13/24 09/13/24 lidocaine 5 % topical patch 1 patch topical DAILY 09/13/24 09/13/24 lisdexamfetamine 20 mg capsule 20 mg PO DAILY 09/13/24 09/13/24 meloxicam 15 mg tablet 15 mg PO DAILY 09/13/24 09/13/24 naltrexone 50 mg tablet 50 mg PO DAILY 09/13/24 09/13/24 pregabalin 150 mg capsule 150 mg PO BID 09/13/24 09/13/24 valbenazine 40 mg capsule 40 mg PO DAILY 09/13/24 09/13/24 (Ingrezza) venlafaxine 37.5 mg 37.5 mg PO DAILY 09/13/24 09/13/24 capsule,extended release 24 hr Previous Rx's ?Medication ?Instructions ?Recorded epinephrine 0.3 mg/0.3 mL 0.3 ml IM Q5-15M PRN #2 ea 01/15/23 injection, auto-injector ibuprofen 600 mg tablet 600 mg PO Q6H PRN Pain 30 days #60 08/03/23 tabs hydroxyzine HCl 25 mg tablet 25 mg PO TID PRN #14 tabs 01/04/24 prochlorperazine maleate 10 mg 10 mg PO Q8H PRN #20 tabs 08/24/24 tablet (Compazine) prednisone 20 mg tablet 40 mg (2 x 20 mg) PO DAILY #10 tabs 01/27/25 Allergies Allergy/AdvReac Type Severity Reaction Status Date / Time shellfish derived Allergy Severe Anaphylaxis Verified 09/13/24 08:14 cephalexin (From Keflex) Allergy Intermediate Rash Verified 09/13/24 08:14 Cephalosporins Allergy Intermediate Rash Verified 09/13/24 08:14 Penicillins Allergy Intermediate Rash Verified 09/13/24 08:14 Review of Systems Status of ROS: Reports: 10 or more systems reviewed and unremarkable except as noted in History and below Const: Denies: fever, chills or fatigue Eyes: Denies: change in vision ENMT: Denies: neck pain or nasal congestion Cardio: Denies: chest pain or shortness of breath with exertion Resp: Denies: shortness of breath GI: Denies: abdominal pain, nausea or vomiting : Denies: painful urination Musculo: Reports: back pain; Denies: neck pain or extremity pain Endo: Denies: fatigue PFSH PFS Medical History History of substance abuse ?F19.11 - Other psychoactive substance abuse, in remission (ICD-10) History of alcohol abuse ?F10.11 - Alcohol abuse, in remission (ICD-10) Femoral neck fracture ?S72.009A - Fracture of unspecified part of neck of unspecified femur, initial encounter for closed fracture (ICD-10) Cubital tunnel syndrome, bilateral ?G56.23 - Lesion of ulnar nerve, bilateral upper limbs (ICD-10) Obesity ?E66.9 - Obesity, unspecified (ICD-10) Substance use disorder ?F19.90 - Other psychoactive substance use, unspecified, uncomplicated (ICD-10) Back problem ?M53.9 - Dorsopathy, unspecified (ICD-10) Anxiety ?F41.9 - Anxiety disorder, unspecified (ICD-10) Depression ?F32.A - Depression, unspecified (ICD-10) Asthma ?J45.909 - Unspecified asthma, uncomplicated (ICD-10) Surgical History Status post total hip replacement, 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) ?Z96.642 - Presence of left artificial hip joint (ICD-10) Status post laparoscopic cholecystectomy (09/13/19) ?Z90.49 - Acquired absence of other specified parts of digestive tract (ICD-10) History of varicose vein ligation ?Z98.890 - Other specified postprocedural states (ICD-10) ?Z86.79 - Personal history of other diseases of the circulatory system (ICD-10) Hx of hammer toe correction (10/22/03) ?Z98.890 - Other specified postprocedural states (ICD-10) ?Z87.39 - Personal history of other diseases of the musculoskeletal system and connective tissue (ICD-10) Family History Father Leukemia Social History Narrative: single, 2 kids, nonsmoker, no EtOH Highest level of school completed/degree received: Associate degree: occupational, technical, vocational program Smoking Status: Former smoker Do you use any of these nicotine containing products: None Second hand tobacco smoke exposure: No How often do you have a drink containing alcohol: never How often do you have six or more drinks on one occasion: Never AUDIT-C Alcohol total score: 0 Non-prescribed substance use: denies use Caffeine: Yes Are you using contraception or practicing any form of control: No service: No Exam Narrative: Exam Narrative: Patient is alert and oriented. Hypervigilant to movement and discussion. External ears eyes nose clear. No respiratory distress. Abdomen soft. Pelvis stable. Examination of lower extremity shows what appears to be slightly decreased plantar and dorsiflexion on the right as well as knee flexion. However when testing both lower extremities and with some distraction this appears to be normal. DTRs 1+ at the ankles. 1+ at the knees. Const: Vital Signs, click to edit/add: Vital Signs - 24 hr 01/27/25 11:05 01/27/25 11:51 Temperature 96.5 F L Pulse Rate [Pulse Oximeter] 97 86 Respiratory Rate 16 16 Blood Pressure [Ri ght Upper Arm] 151/95 H 141/85 H Pulse Oximetry 96 96 Oxygen Delivery Me thod Room Air Room Air Documenting provider has reviewed patient's vital signs: yes Course Course ED Course: Differential diagnosis includes but is not limited to muscular strain, disc rupture, anxiety. Patient noted to have receive fentanyl EN route to the hospital. Currently feeling okay if she is not moving. A given the new symptoms on the right side of have elected to pursue MRI of the lumbar spine as she is complaining of significant lower extremity weakness. No loss of bowel or bladder control at this time however. Certainly with pending injection I do think it would be important to update MRI. Reevaluation(s) Reevaluation #1: Patient noted to be in significant discomfort upon for return from MRI. Patient given Toradol 15 mg IV and does appear to be improved. Vital Signs Vital signs: Initial Vital Signs Temperature 96.5 F L 01/27/25 11:05 Temperature Source Temporal Artery Scan 01/27/25 11:05 Pulse Rate 97 09/08/25 11:05 Pulse Rhythm Regular 01/27/25 11:05 Respiratory Rate 16 01/27/25 11:05 Blood Pressure 151/95 H 01/27/25 11:05 Blood Pressure Mean 113 H 01/27/25 11:05 Blood Pressure Position Sitting 01/27/25 11:05 Pulse Oximetry 96 01/27/25 11:05 Oxygen Delivery Method Room Air 01/27/25 11:05 Vital Signs Temperature 96.5 F L 01/27/25 11:05 Pulse Rate 97 01/27/25 11:05 Respiratory Rate 16 01/27/25 11:05 Blood Pressure 151/95 H 01/27/25 11:05 Pulse Oximetry 96 01/27/25 11:05 Oxygen Delivery Method Room Air 01/27/25 11:05 Temperature 96.5 F L 01/27/25 11:05 Pulse Rate 86 01/27/25 11:51 Respiratory Rate 16 01/27/25 11:51 Blood Pressure 141/85 H 01/27/25 11:51 Pulse Oximetry 96 01/27/25 11:51 Oxygen Delivery Method Room Air 01/27/25 11:51 Medications Administered Medications: Discontinued Medications Generic Name Dose Route Start Last Admin Trade Name Freq PRN Reason Stop Dose Admin Dexamethasone 10 mg 01/27/25 11:45 01/27/25 11:45 Dexamethasone 10 Mg/Ml Pf IVP 01/27/25 11:46 10 mg ONCE ONE Administration Ketorolac Tromethamine 15 mg 01/27/25 12:39 01/27/25 13:05 Ketorolac 15 Mg/Ml Inj IVP 01/27/25 12:40 15 mg ONCE ONE Administration MDM - Back Pain/Injury MDM Narrative Medical decision making narrative: 1. Low back pain-patient noted to have significant lower extremity weakness subjectively. Objectively that she was somewhat distractible. Fortunately MRI does not show any new no DIS rupture or nerve compromise. Patient noted to be sitting on the side of the bed when I arrived back in the room. She is looking much improved after I tell her that the MRI is reassuring. At this time will start prednisone 40 mg daily over the next 5 days. She does have Flexeril at home for muscle spasm. Would have her use ibuprofen or Tylenol as needed for pain. Do not feel comfortable prescribing narcotics in light of the fact that she is somewhat improved as well as noting a history of addictions prior to 2014. Patient is happy with this plan. 2. Disposition-patient is very happy that the MRI looks much better. She is unwilling to wait for her discharge instructions stating that her ride is here. She is noted to be ambulating without difficulty she departs the department. She is instructed to let know that she had an MRI today prior to her injection that is coming up. She is instructed return for loss of bowel or bladder control perineal numbness or increasing weakness. Medical Records Attestation: I reviewed the patient's medical records. Lab Data Labs: Lab Results 01/27/25 Range/Units 12:38 Urine Color Yellow (Yellow) Urine Appearance Clear (Clear) Urine pH 6.5 (5.0-8.5) Ur Specific [place] 1.010 (1.000-1.030) Urine Protein Negative (Negative) Urine Glucose (UA) Negative (Negative) Urine Ketones Negative (Negative) Urine Blood Negative (Negative) Urine Nitrite Negative (Negative) Urine Bilirubin Negative (Negative) Urine Urobilinogen 0.2 (0.2-1.0) Ur Leukocyte Esterase Negative (Negative) Urine RBC 0-2 (0-2) Urine WBC 0-2 (0-5) Ur Squamous Epith Cells None (None-Few) Urine Bacteria None (None) Urine Opiates Screen Negative (Negative) Ur Oxycodone Screen Negative (Negative) Urine Methadone Screen Negative (Negative) Ur Barbiturates Screen Negative (Negative) U Tricyclic Antidepress Negative (Negative) Ur Phencyclidine Scrn Negative (Negative) Ur Amphetamines Screen Negative (Negative) U Methamphetamines Scrn Negative (Negative) U Benzodiazepines Scrn Negative (Negative) Urine Cocaine Screen Negative (Negative) U Marijuana (THC) Screen Negative (Negative) Ur Drug Screen Comment See Note Imaging Data Lumbar MRI: Attestation: I have reviewed the pertinent imaging results. Radiologist's impression: Previous MRI from November: 5 lumbar levels with transitional lumbosacral segment designated L5. No evidence of arachnoid disease or abnormal normal development. Multilevel mild sure mints type changes. L5-S1 developmentally small disc and facet joints mild left facet degeneration. Right-sided lumbosacral transitional articulation with mild degeneration. No central or foraminal stenosis L4-5: Mild disc degeneration and trace retrolisthesis, dorsal disc bulge and annular fissuring. Minimal left facet degeneration. No central stenosis. Mild bilateral foraminal stenosis L3-4: Mild disc degeneration and 2 mm retrolisthesis, left paracentral 3 mm disc protrusion, minimal right facet degeneration. No central or foraminal stenosis L2 -3: No central foraminal stenosis L1-2: Mild disc dehydration no central foraminal stenosis T11-12, T12-L1 no central foraminal stenosis. Conclusion L3-4 left paracentral disc protrusion and L4-5 bulge without impingement L5-S1 right-sided lumbosacral transitional articulation mild degeneration Multilevel mild facet degeneration. Today's MRI:For numbering purposes referencing the prior CT abdomen pelvis, the last rib-bearing vertebral body is designated T12, followed by 5 lumbar vertebrae, a partially lumbarized S1 segment, and a rudimentary S1-S2 intervertebral disc. Preserved lumbar lordosis. Trace retrolisthesis at L4-5. Scattered degenerative Schmorl`s nodes. No acute osseous abnormality. Unremarkable bone marrow signal. Conus medullaris terminates at L1-2. No concerning findings in the paravertebral soft tissues. Included SI joints are unremarkable. L1-L2 through L3-L4: No neural foraminal or spinal canal stenosis. L4-L5: Mild disc bulge with shallow left central protrusion. Mild facet arthropathy. No neural foraminal or spinal canal stenosis. L5-S1: Mild diffuse disc bulge, right asymmetric facet arthropathy. No neural foraminal or spinal canal stenosis. S1-S2: Partially lumbarized S1 segment, rudimentary disc. No neural foraminal or spinal canal stenosis. Impression: 1. For numbering purposes, there is a transitional, partially lumbarized S1 segment, followed by a rudimentary S1-S2 intervertebral disc. 2. Mild lumbar spondylosis with trace degenerative spondylolisthesis as detailed. 3. No neural foraminal or spinal canal stenosis. Discharge Plan Discharge Clinical Impression: Acute exacerbation of chronic low back pain Patient Disposition: Home, Self-Care Condition: Improved Prescriptions: New prednisone 20 mg tablet 40 mg PO DAILY Qty: 10 0RF No Action gabapentin 100 mg capsule 200 mg PO QID valacyclovir 1 gram tablet 1,000 mg PO BID omeprazole 20 mg capsule,delayed release(DR/EC) 20 mg PO DAILY mirtazapine 15 mg tablet 15 mg PO QPM loratadine 10 mg tablet 10 mg PO DAILY sennosides-docusate sodium [Senexon-S] 8.6-50 mg tablet 2 tab PO BID acetaminophen 500 mg tablet 1,000 mg PO Q6H PRN (Reason: pain) epinephrine 0.3 mg/0.3 mL auto-injector 0.3 ml IM Q5-15M PRNQty: 2 0RF Rx Instructions: do not exceed 3 doses per episode ibuprofen 600 mg Tablet 600 mg PO Q6H PRN (Reason: Pain) 30 Days Qty: 60 0RF hydroxyzine HCl 25 mg tablet 25 mg PO TID PRNQty: 14 0RF prochlorperazine maleate [Compazine] 10 mg tablet 10 mg PO Q8H PRNQty: 20 0RF cyclobenzaprine 10 mg tablet 10 mg PO BID PRN venlafaxine 37.5 mg capsule,extended release 24hr 37.5 mg PO DAILY meloxicam 15 mg tablet 15 mg PO DAILY naltrexone 50 mg tablet 50 mg PO DAILY buspirone 10 mg tablet 10 mg PO 3XD lidocaine 5 % adhesive patch,medicated 1 patch topical DAILY albuterol sulfate 90 mcg/actuation HFA aerosol inhaler inhalation pregabalin 150 mg capsule 150 mg PO BID cholecalciferol (vitamin D3) 1,250 mcg (50,000 unit) capsule 1,250 mcg PO lisdexamfetamine 20 mg capsule 20 mg PO DAILY Ingrezza 40 mg capsule 40 mg PO DAILY Follow Up/Referrals: Kika Johnston PA-C [Primary Care Provider, Family Practice] Stand Alone Forms: [facility] Info Instructions
--- NOTE | 2025-01-27 11:34 | CRLHL7_ITS ---
For Patients: As a result of the Century Cures Act, medical imaging exams and procedure reports are released immediately into your electronic medical record. You may view this report before your referring provider. If you have questions, please contact your health care provider. Indication: Right lower extremity weakness Technique: Multiplanar, multisequence, MRI of the lumbar spine, obtained without contrast. Comparison: CT abdomen pelvis 09/12/2019 Findings: For numbering purposes referencing the prior CT abdomen pelvis, the last rib-bearing vertebral body is designated T12, followed by 5 lumbar vertebrae, a partially lumbarized S1 segment, and a rudimentary S1-S2 intervertebral disc. Preserved lumbar lordosis. Trace retrolisthesis at L4-5. Scattered degenerative Schmorl`s nodes. No acute osseous abnormality. Unremarkable bone marrow signal. Conus medullaris terminates at L1-2. No concerning findings in the paravertebral soft tissues. Included SI joints are unremarkable. L1-L2 through L3-L4: No neural foraminal or spinal canal stenosis. L4-L5: Mild disc bulge with shallow left central protrusion. Mild facet arthropathy. No neural foraminal or spinal canal stenosis. L5-S1: Mild diffuse disc bulge, right asymmetric facet arthropathy. No neural foraminal or spinal canal stenosis. S1-S2: Partially lumbarized S1 segment, rudimentary disc. No neural foraminal or spinal canal stenosis. Impression: 1. For numbering purposes, there is a transitional, partially lumbarized S1 segment, followed by a rudimentary S1-S2 intervertebral disc. 2. Mild lumbar spondylosis with trace degenerative spondylolisthesis as detailed. 3. No neural foraminal or spinal canal stenosis. Dictated by Cristel Knight MD @ 01/27/2025 12:41:22 PM (Electronically Signed)
[2025-01-27] MEDS: DEXAMETHASONE 10 MG/ML PF IVP (11:45)
[2025-01-27 11:51] VITALS: BP 141/85; PULSE 86; RESP 16; O2SAT 96
[2025-01-27 12:49] LABS: Appearance Urine Clear (Clear)
[2025-01-27 12:59] LABS: Cannabinoid Screen Urine Negative (Negative); Methamphetamines Screen Urine Negative (Negative); Tricyclic Antidepressant Urine Negative (Negative)
== END 2025-01-27 14:30 | disposition home or self-care (01) ==
PROVIDERS: Emergency Provider Family Medicine; PCP Physician Assistant Medical
DX: M54.50 Low back pain, unspecified (principal); G89.29 Other chronic pain
CPT/HCPCS: 72148; 80306; 81001; 96374; 96375; 99284; J1100; J1885

== ENCOUNTER 2025-02-14 11:11 | Outpatient (CLI) | payer MEDICARE, OTHER, SELFPAY | END 2025-02-14 11:12 | disposition home or self-care (01) | PROVIDERS: PCP Physician Assistant Medical; Visit Provider Physician Assistant | DX: N95.1 Menopausal and female climacteric states (principal) | CPT/HCPCS: 83001; 84443 ==